=== PATIENT | female | born 1955 | race Caucasian/White ===

== ENCOUNTER 2018-03-11 10:02 | Emergency (ER) | payer OTHER ==
--- NOTE | 2018-03-11 10:25 | RAD ---
Indication: Left hemiparesis CT of the brain was performed without IV contrast. Ventricular structures are midline. No midline shift is noted. There is a large intraparenchymal hemorrhage involving the right parietal lobe extending to the right occipital lobe. There is intraventricular hemorrhage noted with hemorrhage in the left occipital horn.. No midline shift is noted. The bony calvaria is unremarkable. IMPRESSION: Large intraparenchymal hematoma in the right parietal lobe. Findings discussed with Dr. Montague at 10:21 AM
[2018-03-11 10:30] LABS: ABS Basophils 0.1 10^3/ul (0-0.2); ABS Eosinophils 0 10^3/ul (0-0.6); ABS Lymphocytes 0.7 10^3/ul (1.0-4.8); ABS Neutrophils 11.3 10^3/ul (1.5-7.7); ABS Nucleated RBC 0 10^3/ul; Eosinophil % 0.1 % (0-6); Hematocrit 41 % (35-47); Hemoglobin 13.9 g/dl (12.0-16.0); Lymphocyte % 5.2 % (25-47); Mean Corpuscular HGB Conc 34 g/dl (31-36); Mean Corpuscular Hemoglobin 35 pg (27-31); Mean Corpuscular Volume 104 fL (80-97); Mean Platelet Volume 7.2 um3 (7.4-10.4); Nucleated Red Blood Cells % 0; Platelet Count 358 10^3/ul (150-450); Red Blood Count 3.95 10^6/ul (4.00-5.40); Red Cell Distribution Width 14 % (10.5-15); White Blood Count 13.1 10^3/ul (3.5-10.8)
[2018-03-11 10:51] LABS: EGFR Non-African American 92.1 (>60)
[2018-03-11 10:59] LABS: INR 0.92 (0.77-1.02)
[2018-03-11] MEDS ORDERED: Iodixanol* (CONTRAST) 320 MG/ML 100 ML SDV IV ONE (11:01)
[2018-03-11] MEDS ORDERED: Ondansetron INJ* 2 MG/ML VIAL IV ONE (11:10)
[2018-03-11] MEDS ORDERED: NS 0.9% 500 ML* 500 ML IV ONE (11:10)
--- NOTE | 2018-03-11 11:11 | RAD ---
Indication: Neurologic changes. Single frontal view of the chest performed at 1050 hours was reviewed. Comparison is made with previous exam dated August 15, 2013. No mediastinal shift is noted. Heart is of normal size and configuration. Lung schmidt appear clear. IMPRESSION: NO ACTIVE CARDIOPULMONARY DISEASE IS NOTED.
--- NOTE | 2018-03-11 11:46 | RAD ---
CPT II: CPT II Codes: 3100F INDICATION: Left hemiparesis COMPARISON: Same day CT of the brain that shows a large parenchymal bleed in the right parietal lobe TECHNIQUE: A CT angiogram of the head and neck was performed with 80 cc of Visipaque 320. Contiguous axial sections were obtained from the thoracic inlet through the [place]. Images were reconstructed in the sagittal, coronal planes and in a 3-D volume rendered format. The distal cervical internal carotid artery diameter is used as the denominater for stenosis measurement. CTA NECK: The common and internal carotid arteries are patent without hemodynamically significant stenosis. Right: Below the carotid bifurcation the common carotid artery measures 8 mm in diameter. Immediately above the carotid bifurcation the internal carotid artery measures 9 mm in diameter yielding 0% degree stenosis. Left: Below the carotid bifurcation the common carotid artery measures 7 mm in short axis diameter. Medially above the bifurcation the internal carotid artery measures 8 mm in short axis diameter yielding 0% degree stenosis. The vertebral arteries are patent without gross abnormality. The left vertebral artery is dominant. CTA of the brain: The internal carotid, anterior and middle cerebral arteries appear are patent without high grade stenosis or occlusion. The distal branches of the left middle cerebral artery exhibit reduced filling relative to the contralateral side. The vertebral, basilar and posterior cerebral arteries appear patent without high grade stenosis or occlusion. Bilaterally the posterior communicating arteries are absent indicating an incomplete [place]. No focal luminal filling defect, aneurysm or vascular malformation is seen. NON-ARTERIAL FINDINGS: Similar to the previous CT of the brain, there is a large parenchymal bleed involving the right parietal lobe measuring 3.1 x 5.2 cm in the axial plane, not changed significantly from the prior CT of the brain. When compared to the noncontrast CT of the brain the Hounsfield unit measurement measures a relatively stable 69 indicating there is no active arterial extravasation. There are multiple subcentimeter hypoattenuating foci in the thyroid. IMPRESSION: 1. No significant stenosis of the bilateral carotid bulbs according to the NASCET criteria. 2. There is a relative paucity of filling of the distal right MCA arteries compared to the left but the central cerebral vasculature is patent. 3. Stable intraparenchymal hematoma involving the right parietal lobe when compared to the same day noncontrast CT of the brain. 4. Multifocal subcentimeter foci in the thyroid gland. On a nonemergent basis this can be further characterized with ultrasound.
[2018-03-11] MEDS ORDERED: Labetalol IV* 5 MG/ML 20 ML VIAL IV PUSH ONE (11:52)
[2018-03-11] MEDS ORDERED: Labetalol IV* 5 MG/ML 20 ML VIAL ONE (11:55)
[2018-03-11] MEDS ORDERED: Ondansetron SYRINGE* 4 MG/2 ML SYRINGE (from 40mg/20ml vial) IV ONE (12:00)
--- NOTE | 2018-03-11 12:54 | CONSULT ---
Consult Consult: Consult was dictated. Pt with large right IPH that we suspect to be either due to hypertensive intracranial hemorrhage vs cerebral venous thrombosis. The CTA and CTV showed no acute vascular occlusion or thrombosis. Pt is hemodynamically stable. Neurosurgery (Shobha) evaluated the patient and recommended transfer to . I reviewed the images with DR. Shearer and Dr. Moya. Both agree that there seems to be no venous thrombosis and dominant right IJ and transverse sinus. Spoke with Dr. Lopez who accepted the patient. The patient will need an MRI and MRV to help differentiate between a hypertensive hemorrhage or CVT. Please make sure the patient's SBP stays below 140 mmHg. She has been stable the last 2 hours. We decided, with Dr. Montague, to transfer her via EMS.
[2018-03-11] MEDS ORDERED: LORazepam INJ* 2 MG/ML 1 ML VIAL IV PUSH ONE (13:35)
[2018-03-11] MEDS ORDERED: LORazepam INJ* 2 MG/ML 1 ML VIAL ONE (13:36)
--- NOTE | 2018-03-11 13:36 | ED ---
Jesse Ferguson Angela, scribed for Devin Montague MD on 03/11/18 at 1017 . Neurological HPI - HPI Summary HPI Summary: ABDULAZIZ PITT OVERHEAD AT 09:52, ETA 5 minutes. This pt is a 62 y/o female presenting to [facility] via EMS for left sided paralysis today. EMS reports the pt woke up at 05:00 this morning with left leg spasm. Pt noticed she could not move her left side and was unable to locate phone or crawl to her door so she called help out of her window and a neighbor responded. Per EMS, her left leg became stiff and currently pt has no sensation on the left side. EMS states pt has left sided facial droop and a gaze to the right. Pt currently notes she has a slight headache, described on the right side of her head, and nausea. - History of Current Complaint Stated Complaint: POSSIBLE STROKE Time Seen by Provider: 03/11/18 10:05 Hx Obtained From: Patient, EMS Onset/Duration: Sudden Onset, Still Present Timing: Sudden Onset Current Severity: Severe Neurological Deficit Location: Facial - left sided facial droop, LUE, LLE Headache Location: Diffuse (Right) Pain Intensity: 2 Pain Scale Used: 0-10 Numeric Character: Weak - left sided, Paralysis - left side, Visual Changes - gaze to the right, Other: - headache Aggravating: Nothing Alleviating: Nothing Associated Signs and Symptoms: Positive: Visual Changes - right gaze, Headache, Weakness - left sided. Negative: Fever - Allergy/Home Medications Allergies/Adverse Reactions: Allergies Allergy/AdvReac Type Severity Reaction Status Date / Time No Known Allergies Allergy Verified 12/02/15 10:52 PMH/Surg Hx/FS Hx/Imm Hx Endocrine/Hematology History: Denies: Hx Diabetes Cardiovascular History: Reports: Other Cardiovascular Problems/Disorders - pt states that she believes she has a heart rhythmia. Denies: Hx Hypertension - PT WAS TREATED WITH LISINOPRIL BUT NO LONGER NEEDED PER PT DOC.TOOK HEROFF, Hx Pacemaker/ICD Musculoskeletal History: Reports: Other Musculoskeletal History - CURRENT LEFT ELBOW FX Sensory History: Reports: Hx Contacts or Glasses - GLASSES Denies: Hx Hearing Aid Opthamlomology History: Reports: Hx Contacts or Glasses - GLASSES Psychiatric History: Denies: Hx Panic Disorder - Surgical History Surgery Procedure, Year, and Place: [place] [facility] [place] Anesthesia Reactions: No Infectious Disease History: Denies: Hx Shingles, Hx Tuberculosis - Family History Family History: FHx: [place] - Social History Alcohol Use: Weekly Alcohol Amount: 2-3/WEEK Substance Use Type: Reports: Marijuana Substance Use Comment - Amount & Last Used: OCC MARIJUANA USE Smoking Status (MU): Former Smoker Have You Smoked in the Last Year: No Review of Systems Negative: Fever, Chills Negative: Erythema Negative: Sore Throat Negative: Chest Pain Negative: Shortness Of Breath, Cough Positive: Nausea. Negative: Abdominal Pain, Vomiting Negative: dysuria, hematuria Negative: Myalgia, Edema Negative: Rash Neurological: Other - NEG: dizziness. POS: left sided paralysis, left sided facial droop, gaze to the right Positive: Headache, Weakness - left sided All Other Systems Reviewed And Are Negative: Yes Physical Exam - Summary Physical Exam Summary: Constitutional: Well-developed, Well-nourished, Alert. (-) Distressed Skin: Warm, Dry HENT: Normocephalic; Atraumatic Eyes: Conjunctiva normal Neck: Musculoskeletal ROM normal neck. (-) JVD, (-) Stridor, (-) Tracheal deviation Cardio: Rhythm regular, rate normal, Heart sounds normal; Intact distal pulses; The pedal pulses are 2+ and symmetric. Radial pulses are 2+ and symmetric. (-) Murmur Pulmonary/Chest wall: Effort normal. (-) Respiratory distress, (-) Wheezes, (-) Rales Abd: Soft. (-) Tenderness, (-) Distension, (-) Guarding, (-) Rebound Musculoskeletal: (-) Edema Lymph: (-) Cervical adenopathy Neuro: Alert, Oriented x3, Gaze deviation to the right, Left sided hemineglect, Left leg is stiff, Left arm is held in contracture and flexion at the elbow. Psych: Mood and affect Normal Triage Information Reviewed: Yes Vital Signs On Initial Exam: Initial Vitals Pulse Resp BP Pulse Ox 78 18 156/97 100 03/11/18 10:02 03/11/18 10:02 03/11/18 10:02 03/11/18 10:02 Temperature: 98.0 F Vital Signs Reviewed: Yes - Esau Coma Scale Best Eye Response: 4 - Spontaneous Best Motor Response: 6 - Obeys Commands Best Verbal Response: 5 - Oriented Coma Scale Total: 15 Diagnostics - Vital Signs Vital Signs Temp Pulse Resp BP Pulse Ox 03/11/18 11:50 86 17 151/95 99 03/11/18 11:20 88 15 144/107 99 03/11/18 11:00 87 20 100 03/11/18 10:51 88 17 145/99 100 03/11/18 10:46 77 22 99 03/11/18 10:44 36.7 C 79 20 141/95 100 03/11/18 10:08 74 18 141/95 98 03/11/18 10:02 78 18 156/97 100 - Laboratory Lab Results: Lab Results 03/11/18 03/11/18 03/11/18 Range/Units 10:18 10:21 10:21 WBC 13.1 H (3.5-10.8) 10^3/ul RBC 3.95 L (4.00-5.40) 10^6/ul Hgb 13.9 (12.0-16.0) g/dl Hct 41 (35-47) % MCV 104 H (80-97) fL MCH 35 H (27-31) pg MCHC 34 (31-36) g/dl RDW 14 (10.5-15) % Plt Count 358 (150-450) 10^3/ul MPV 7.2 L (7.4-10.4) um3 Neut % (Auto) 86.4 H (38-83) % Lymph % (Auto) 5.2 L (25-47) % Garrard % (Auto) 7.5 H (0-7) % Eos % (Auto) 0.1 (0-6) % Baso % (Auto) 0.8 (0-2) % Absolute Neuts (auto) 11.3 H (1.5-7.7) 10^3/ul Absolute Lymphs (auto) 0.7 L (1.0-4.8) 10^3/ul Absolute Monos (auto) 1.0 H (0-0.8) 10^3/ul Absolute Eos (auto) 0 (0-0.6) 10^3/ul Absolute Basos (auto) 0.1 (0-0.2) 10^3/ul Absolute Nucleated RBC 0 10^3/ul Nucleated RBC % 0 INR (Anticoag Therapy) 0.92 (0.77-1.02) APTT 29.2 (26.0-36.3) seconds D-Dimer, Quantitative 391 H (Less Than 230) ng/mL Sodium (135-145) mmol/L Potassium (3.5-5.0) mmol/L Chloride (101-111) mmol/L Carbon Dioxide (22-32) mmol/L Anion Gap (2-11) mmol/L BUN (6-24) mg/dL Creatinine (0.51-0.95) mg/dL Est GFR ( Amer) (>60) Est GFR (Non-Af Amer) (>60) BUN/Creatinine Ratio (8-20) Glucose (70-100) mg/dL POC Glucose (mg/dL) 72 (70-100) mg/dL Lactic Acid (0.5-2.0) mmol/L Calcium (8.6-10.3) mg/dL Total Bilirubin (0.2-1.0) mg/dL AST (13-39) U/L ALT (7-52) U/L Alkaline Phosphatase (34-104) U/L Troponin I (<0.04) ng/mL Total Protein (6.4-8.9) g/dL Albumin (3.2-5.2) g/dL Globulin (2-4) g/dL Albumin/Globulin Ratio (1-3) Triglycerides mg/dL Cholesterol mg/dL LDL Cholesterol mg/dL HDL Cholesterol mg/dL Blood Type Antibody Screen 03/11/18 03/11/18 03/11/18 Range/Units 10:21 10:21 10:22 WBC (3.5-10.8) 10^3/ul RBC (4.00-5.40) 10^6/ul Hgb (12.0-16.0) g/dl Hct (35-47) % MCV (80-97) fL MCH (27-31) pg MCHC (31-36) g/dl RDW (10.5-15) % Plt Count (150-450) 10^3/ul MPV (7.4-10.4) um3 Neut % (Auto) (38-83) % Lymph % (Auto) (25-47) % Garrard % (Auto) (0-7) % Eos % (Auto) (0-6) % Baso % (Auto) (0-2) % Absolute Neuts (auto) (1.5-7.7) 10^3/ul Absolute Lymphs (auto) (1.0-4.8) 10^3/ul Absolute Monos (auto) (0-0.8) 10^3/ul Absolute Eos (auto) (0-0.6) 10^3/ul Absolute Basos (auto) (0-0.2) 10^3/ul Absolute Nucleated RBC 10^3/ul Nucleated RBC % INR (Anticoag Therapy) (0.77-1.02) APTT (26.0-36.3) seconds D-Dimer, Quantitative (Less Than 230) ng/mL Sodium 142 (135-145) mmol/L Potassium 3.4 L (3.5-5.0) mmol/L Chloride 102 (101-111) mmol/L Carbon Dioxide 27 (22-32) mmol/L Anion Gap 13 H (2-11) mmol/L BUN 5 L (6-24) mg/dL Creatinine 0.65 (0.51-0.95) mg/dL Est GFR ( Amer) 111.4 (>60) Est GFR (Non-Af Amer) 92.1 (>60) BUN/Creatinine Ratio 7.7 L (8-20) Glucose 89 (70-100) mg/dL POC Glucose (mg/dL) (70-100) mg/dL Lactic Acid 2.0 (0.5-2.0) mmol/L Calcium 9.6 (8.6-10.3) mg/dL Total Bilirubin 0.70 (0.2-1.0) mg/dL AST 72 H (13-39) U/L ALT 31 (7-52) U/L Alkaline Phosphatase 68 (34-104) U/L Troponin I 0.04 H* (<0.04) ng/mL Total Protein 7.6 (6.4-8.9) g/dL Albumin 4.3 (3.2-5.2) g/dL Globulin 3.3 (2-4) g/dL Albumin/Globulin Ratio 1.3 (1-3) Triglycerides 61 mg/dL Cholesterol 222 mg/dL LDL Cholesterol 112 mg/dL HDL Cholesterol 97.9 mg/dL Blood Type B Positive Antibody Screen Negative Result Diagrams: 03/11/18 10:03/11/18 10:21 Lab Statement: Any lab studies that have been ordered have been reviewed, and results considered in the medical decision making process. - Radiology Chest XR Xray Interpretation: No Acute Changes - IMPRESSION: No active cardiopulmonary disease is noted. Dr. Montague has reviewed this report. Radiology Interpretation Completed By: Radiologist - CT Brain CT CT Interpretation: Positive (See Comments) - IMPRESSION: Large intraparenchymal hematoma in the right parietal lobe. Dr. Montague has reviewed this report. CT Interpretation Completed By: Radiologist - EKG 10:14 Cardiac Rate: NL - at 72 bpm EKG Rhythm: Sinus Rhythm EKG Interpretation: No STEMI. - Additional Comments Diagnostic Additional Comments: CTA Head, as read by radiologist IMPRESSION: 1. No significant stenosis of the bilateral carotid bulbs according to the NASCET criteria. 2. There is a relative paucity of filling of the distal right MCA arteries compared to the left but the central cerebral vasculature is patent. 3. Stable intraparenchymal hematoma involving the right parietal lobe when compared to the same day noncontrast CT of the brain. 4. Multifocal subcentimeter foci in the thyroid gland. On a nonemergent basis this can be further characterized with ultrasound. Dr. Montague has reviewed this radiology report. NIH Scale - NIH Scale Level of Consciousness: Alert/Keenly Responsive Ask Patient the Month and His/Her Age: Both Correct Ask Pt to Open/Close Eyes and Curriculum Counselor/Release Non-Paretic Hand: Both Correctly Best Gaze (Only Horizontal Eye Movement): Forced Deviation Visual Field Testing: No Visual Loss Facial Paresis-Pt to Smile & Close Eyes or Grimace Symmetry: Partial Paralysis Motor Function - Right Arm: No Drift-Holds 10 Seconds Motor Function - Left Arm: No Movement Motor Function - Right Leg: No Drift-Holds 10 Seconds Motor Function - Left Leg: No Movement Limb Ataxia-Must be out of Proportion to Weakness Present: Absent Sensory (Use Pinprick to Test Arms/Legs/Trunk/Face): Pinprick Less on Affected Best Language (Describe Picture, Name Items): No Aphasia Dysarthria (Read Several Words): Normal Extinction and Inattention: Profound Manoj-Inattention Total Score: 15 Re-Evaluation - Re-Evaluation First Eval Re-Evaluation Time: 10:05 Comment: Dr. Vines, neurologist, in to evaluate the pt. Third Eval Re-Evaluation Time: 13:35 Comment: Pt developed strange feeling in her chest. Currently getting an EKG. I discussed with the family, they believe she is gettting anxiety. Course/Dx - Course Assessment/Plan: Pt is a 62 y/o female who presetns with left sided paralysis today. EMS reports the pt woke up at 05:00 this morning with left leg spasm. Pt noticed she could not move her left side and was unable to locate phone or crawl to her door so she called help out of her window and a neighbor responded. Per EMS, her left leg became stiff and currently pt has no sensation on the left side. EMS states pt has left sided facial droop and a gaze to the right. Pt currently notes she has a slight headache, described on the right side of her head, and nausea. Abdulaziz Alonzo was called overhead at 09:52, ETA [address] Vines, neurologist, evaluated pt in the ED. Brain CT shows large intraparenchymal hematoma in the right parietal lobe. CTA Head was ordered by Dr. Vines. CTA shows 1. No significant stenosis of the bilateral carotid bulbs according to the NASCET criteria. 2. There is a relative paucity of filling of the distal right MCA arteries compared to the left but the central cerebral vasculature is patent. 3. Stable intraparenchymal hematoma involving the right parietal lobe when compared to the same day noncontrast CT of the brain. 4. Multifocal subcentimeter foci in the thyroid gland. On a nonemergent basis this can be further characterized with ultrasound. Dr. Vines spoke with Dr. Lopez , from [facility], who accepted the patient for transfer. Pt will be transferred to [facility] in stable condition. - Diagnoses Provider Diagnoses: Intraparenchymal hemorrhage of brain During the Visit The Following Alert/Code Occurred: Abdulaziz Pitt - at 09:52, ETA 5 minutes - Critical Care Time Critical Care Time: 30-74 min - 45 minutes Discharge - Sign-Out/Discharge Documenting (check all that apply): Discharge/Admit/Transfer - Transfer - Discharge Plan Condition: Stable Disposition: TRANS HIGHER LVL OF CARE FAC Discharge Disposition Comment: [facility] Referrals: Fozia Silva MD [Primary Care Provider] - - Billing Disposition and Condition Condition: STABLE Disposition: Trans Higher Lvl of Care Fac The documentation as recorded by the Jesse morales Angela accurately reflects the service I personally performed and the decisions made by , Devin Montague MD.
[2018-03-11 13:46] VITALS: BP 137/87
[2018-03-11 14:10] LABS: Urine Appearance Clear; Urine Blood Negative (Negative); Urine Color Yellow; Urine Ketones 1+ (Negative); Urine Protein Negative (Negative); Urine Specific Gravity 1.048 (1.010-1.030); Urine Urobilinogen Negative (Negative)
--- NOTE | 2018-03-11 16:11 | CONS ---
NEUROLOGY CONSULTATION REPORT: DATE OF CONSULT: 03/11/18 CONSULTING PHYSICIAN: Devin Montague MD Marifer Kat was called at 9:52 for ETA of 5 minutes. The patient arrived at approximately 10:05 a.m. CHIEF COMPLAINT: Left-sided weakness. Neurology is following for the evaluation and management and recommendation for the Darrius Kat and to evaluate for tPA. HISTORY OF PRESENT ILLNESS: Lara Nicole is a 62-year-old right-handed female , who has history of chronic tobacco use, 2 miscarriages in the past, and history of marijuana use who presented to [facility] via EMS for a left-sided paralysis. The patient stated that she went to sleep approximately at 10 p.m. last night with no neurological deficits. She woke up at 5 a.m. with spasms in the left leg. She was moving the left leg and massaging the left calf using the right arm. She was unable to lift her left arm. She also had a very mild 2 /10 headache in the right cerebral hemisphere. The patient does not have a history of headaches in the past. She is also feeling ill and was dry heaving this morning. She contacted EMS who came and found the patient in bed with significant left hemiparesis and contraction of the left upper and lower extremities. NIH stroke scale is 19. Important time frames. The CT head was obtained without contrast which showed a large right intraparenchymal hemorrhage involving the right parietal lobe with possible mild intraventricular hemorrhage without any midline shift. The CTA was also obtained of the head and neck as well as CTV of the head and neck. Pending the report for these images. However, I discussed these images with Dr. Wilson from Radiology at 10: 45 who reported that there is expansion of the right internal jugular vein as well as right transverse sinus with possible occlusion vs hypoplastic left transverse sinus, left sigmoid sinus, and left internal jugular vein. There appears to be no intercerebral aneurysm, subarachnoid hemorrhage, or midline shift/herniation. The patient's blood pressure has been within a range of systolic blood pressure of 140-150 mmHg. The patient is not intubated. The patient is resting in bed comfortably and she provided most of the history. The patient has history of miscarriage x2 when she was 29 years of age. She denies any DVTs or PEs. She denied any anticoagulation or antiplatelet therapy. PAST MEDICAL HISTORY: Tobacco abuse. The patient is otherwise healthy. PAST SURGICAL HISTORY: Elbow surgery in the past. MEDICATIONS: Not on any medications. She used to take lisinopril for hypertension but was stopped due to episodes of hypotensive. FAMILY HISTORY: The patient denied any family history of stroke, seizure, or clotting disorders. SOCIAL HISTORY: The patient is on disability after she fractured her elbow. She used to work for the [employer]. She smokes about half a pack a day for more than 30 years. She smokes marijuana occasionally. She denied any alcohol use. REVIEW OF SYSTEMS: A 14-point review of systems was obtained and is negative except for what was reported in the HPI. PHYSICAL EXAMINATION: Vital Signs: Heart rate of 86, respiratory rate of 20, oxygen saturation of 100%, blood pressure of 145/99. General: Ill appearing thin female, in no acute distress except that she has dry heaves. Head: Normocephalic without any obvious abnormalities. She reports no falls or any head trauma. Eyes: Conjunctivae/corneas are clear. She has forced eye deviation towards the right. Neck is supple and symmetrical with no carotid bruits. Lungs are clear to auscultation bilaterally. Nonlabored breathing. Cardiovascular: Regular rhythm with normal S1, S2 and normal radial pulses. Extremities: Normal range of motion with no cyanosis. Skin: No skin lesions or lacerations. Psych: Affect is broad and normal mood. The patient became slightly emotional and started crying after I reported to her that she has an intraparenchymal hemorrhage. Neurological Examination: Mental Status: Awake, alert, and oriented to person, place, time, and general circumstances. She has mild dysarthria but no aphasia. Assessment for expression, naming, repetition, and comprehensions were assessed and found to be normal. Cranial Nerves: Normal confrontation testing. There is forced deviation towards the right. There is left homonymous hemianopia. She has a left facial droop. Sensation on the forehead, cheeks, and jaw are absent on the left. Able to hear throughout the history process. She has tongue that is symmetric and midline with no atrophy or fasciculation. On motor, the patient has dense hemiparesis on the left upper and lower extremities with contraction of the elbows and contractions of the knees and ankles on the left. She has complete hemineglect towards the left side. She is able to move the right upper and right lower extremities with full motor strength. Hypertonicity of the left upper and lower extremities. Reflexes right/left brachioradialis 2/1, biceps 2/1, triceps 2/2, patella 2/0, ankle 2/0, plantar flexor/extensor with triple reflex response. Sensation to light touch and pinprick is absent on the left arm and left leg. Coordination: Normal [id number] on the right but unimpaired on the left. Unable to assess gait, because the patient is immobile and has dense left hemiplegia. DIAGNOSTIC STUDIES/LAB DATA: WBC of 13.1, hemoglobin of 13.9, hematocrit 41, platelet count of 358,000. INR is 0.92. APTT 29.2. Sodium 142, potassium is 3.4, chloride 102, creatinine of 0.65, troponin of 0.04. HDL 97, LDL is 112, cholesterol is 222. Imaging studies as discussed in the HPI. ASSESSMENT AND PLAN: Mrs. Lara Nicole is a 62-year-old female with history of tobacco use, marijuana consumption, and history of miscarriages x2 in the past who presented with acute onset left hemiplegia and left hemineglect. The patient was last known well at 10 p.m. last night. NIH stroke scale is 19. Unfortunately, the patient was found to have a large right intraparenchymal hematoma. CTA/CTV revealed no evidence of any intracerebral aneurysms and questionable occlusion or hypoplastic left transverse sinus, sigmoid sinus and of the internal jugular vein on the left with engorgement of the internal jugular and transverse sinus on the right. I am concerned here that the patient has a cerebral sinus venous thrombosis with a possible thrombosis on the contralateral side from increased collateral flow and pressure towards the right side. However we cannot entirely exclude hypertensive lobar hemorrhage. She is not within the common age group for cerebral amyloid angiopathy but that is still in the differential. Other differential diagnoses which are less likely would include hemorrhagic malignancy. I do not suspect intracranial hemorrhage related to aneurysms given that the patient does not have any subarachnoid hemorrhage. The patient is not a candidate for IV tPA due to the intracranial hemorrhage. I contacted Neurosurgery and discussed the case with ALONZO Yeager, at 11 a.m. According to the neurosurgery team, the patient should be treated at a tertiary center and a transfer to the [facility] was recommended. We contacted the [facility] and we are in the process of discussing the case with Dr. Jones once he receives the images from PACS. In the meantime, I have started the patient on IV fluids, elevated the bed to 40 degrees, placed the patient on seizure precautions, as if we suspect cerebral venous thrombosis, seizures are common in this case. In addition, I asked the ER physician to start the patient on Zofran for the dry heaves. We need to maintain a systolic blood pressure below 140. The patient was not on any antithrombotic therapy, hence reversal agents are not indicated at this time. Her PTT and INR as well as the platelet functions are normal. Prognosis is guarded at this point. Continue neuro check every hour until we obtain the final decision in transferring the patient either via air or ambulance. TIME SPENT: I spent a total of 90 minutes of critical care time and greater than 50% was spent directly reviewing the medical chart, obtaining history, examining the patient, interpreting radiological images, making decisions regarding communicating with Neurosurgery and transfer to a tertiary center such as the [facility], and discussing the guarded prognosis with the patient and family. [id number]/[facility] #: [id number] ADDENDUM: Spoke to Dr. Jones and hypertensive hemorrhage is high on the differential. Therefore, we agreed not to start any anticoagulation therapy for suspected CVT. She will obtain an MRI and MRV of the head at . She was deemed safe to transport via ground transportation via EMS. Family (sister and mother) updated at bedside and agreed with the recommendations. The patient was hemodynamically stable for transfer via ground. I recommend close BP monitoring keeping her SBP <140 mmHg and head elevated at 30 degrees. Phoebe PEREZ
--- NOTE | 2018-03-12 12:05 | ED ---
IJesse Angela, scribed for Devin Montague MD on 03/11/18 at 1349 . Progress - Progress Note Progress Note: EKG at 13:29 Rate: normal at 61 bpm Rhythm: sinus rhythm No STEMI. Re-Evaluation - Re-Evaluation First Eval Re-Evaluation Time: 10:05 Comment: Dr. Vines, neurologist, in to evaluate the pt. Third Eval Re-Evaluation Time: 13:35 Change: Worse Comment: Pt developed strange feeling in her chest. Currently getting an EKG. I discussed with the family, they believe she is gettting anxiety. Fourth Eval Re-Evaluation Time: 13:48 Change: Improved Comment: Chest discomfort and panic resolved after 0.5 mg of Ativan. Course/Dx - Diagnoses Provider Diagnoses: Intraparenchymal hemorrhage of brain During the Visit The Following Alert/Code Occurred: Code Rosado - at 09:52, ETA 5 minutes - Critical Care Time Critical Care Time: 30-74 min - 45 minutes Discharge - Sign-Out/Discharge Documenting (check all that apply): Discharge/Admit/Transfer - Transfer - Discharge Plan Condition: Stable Disposition: TRANS HIGHER LVL OF CARE FAC Discharge Disposition Comment: [facility] Referrals: Fozia Silva MD [Primary Care Provider] - - Billing Disposition and Condition Condition: STABLE Disposition: Trans Higher Lvl of Care Fac The documentation as recorded by the Jesse morales Angela accurately reflects the service I personally performed and the decisions made by me, Devin Montague MD.
== END 2018-03-11 13:51 | disposition short-term general hospital (02) ==
LOC: ED 10:02
DX: I61.8 Other nontraumatic intracerebral hemorrhage (principal); G81.94 Hemiplegia, unspecified affecting left nondominant side; Z87.891 Personal history of nicotine dependence; R07.9 Chest pain, unspecified
CPT/HCPCS: 36415; 70450; 70496; 70498; 71045; 80053; 80061; 81003; 81015; 83605; 84484; 85025; 85379; 85610; 85730; 86850; 86900; 86901; 87086; 93005; 96360; 96374; 96375; 96376; 99285; J2060; J2405; Q9967

== ENCOUNTER 2018-03-21 08:33 | Inpatient (IN) | payer OTHER ==
[2018-03-21] MEDS ORDERED: Al Hydrox/Mg Hydrox/Simet LIQ* 30 ML UDC PO PRN (11:15)
[2018-03-21] MEDS ORDERED: Bisacodyl SUPP* 10 MG SUPP PR PRN (11:49)
--- NOTE | 2018-03-21 14:19 | HP ---
CC: Dr. Silva REHABILITATION ADMISSION: DATE OF ADMISSION: PRIMARY CARE PROVIDER: Dr. Silva. REASON FOR ADMISSION: Intracranial hemorrhage. HISTORY OF PRESENT ILLNESS: This is a 62-year-old woman, who woke up on with some spasm in her left leg and was having difficulty using her left arm. She was brought to the hospital and noted to have left hemiplegia and CT of the head showed a right intraparenchymal hemorrhage. She had a right gaze preference and some left neglect. There was a concern on CTA of a questionable left transverse sinus occlusion and decision was made for her to be transferred to [facility] for further evaluation. While there, a repeat CT of the head showed similar right intraparenchymal hemorrhage in the frontoparietal area, but also left parietal subarachnoid hemorrhage that was small and some small volume blood in the intraventricular system. CT of the chest, abdomen, and pelvis showed no malignancy. There was a L2 compression fracture of indeterminate age. On 03/12/18, she underwent MRI with MRV. Noted was a large right frontoparietal hematoma with small intraventricular hemorrhage. There was scattered subarachnoid hemorrhage on bilateral cerebellar and posterior hemispheres. She had a DSA, which showed no evidence of vascular malformation. She has a dominant right transverse sinus and type 3 arch with tortuous vessels. Echo on 03/18/18 was unremarkable. She had an ejection fraction of 71%. On telemetry, she was in normal sinus rhythm without any atrial fibrillation. She did have hypertension, which was treated with amlodipine. Initially, she required some intravenous hydralazine, but not in several days. She also received Zofran early on for nausea, but has not been nauseous in days. She has received some IV fluids for hyponatremia as well as replacement of potassium and magnesium, last on 03/19/18 from the records reviewed that I have available. Prior to admission, she was independent with all mobility and activities of daily living. With physical therapy, she required minimum amount of assistance for bed mobility, moderate amount of assistance for transferring. With occupational therapy, she required a minimum amount of assistance for eating and maximum amount of assistance for dressing. With speech therapy, she was noted to have mild-to- moderate dysphagia. She was, however, allowed to eat regular consistencies, but not use straws. She should be bolt upright for p.o. intake and alternating liquids and solids with checking for pocketing. She is on the nectar thick liquid restriction from the last speech note that we have available, was unclear if this was upgraded. PAST MEDICAL HISTORY: 1. Hypertension. 2. History of left elbow fracture, requiring surgery by Dr. Tee a few years ago. 3. Stroke with intracranial hemorrhage, see history of present illness. MEDICATIONS: 1. Senna 2 tablets q.h.s. 2. Colace 200 mg b.i.d. 3. Dulcolax 10 mg q. day p.r.n. 4. MiraLAX 17 g q. day. 5. Purmela-3 supplement 1 packet q. day. 6. Amlodipine 5 mg q. day. 7. Heparin 5000 units q.8 hours for DVT prophylaxis. 8. Calcium carbonate 1000 mg b.i.d. p.r.n. indigestion. 9. Tylenol 650 mg q.4 hours p.r.n. pain. ALLERGIES: No known drug allergies. FAMILY HISTORY: Noncontributory. SOCIAL HISTORY: She lives with her son, Jt, who is her healthcare proxy in case she could not make decisions for herself. They both live in upper level apartment, but the lower level is available for her at discharge. There are 4 to 5 steps to enter and she can stay on that floor. She has smoked for at least 10 years, but says she was only smoking 2 cigarettes per day. She has quit as of the stroke. She has occasional marijuana use. She would generally drink 3 glasses of wine per day. She enjoys gardening and art and craft activities. She went on disability when she fractured her elbow. 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 REVIEW OF SYSTEMS: See history of present illness and past medical history. She has been using a Depend at night since the stroke. Her bowel movements have been regular. Remainder of 13-system review was completed. She has acknowledged some left shoulder and elbow pain. Elbow pain was prior to stroke but the left shoulder pain is new. No other significant findings. PHYSICAL EXAMINATION GENERAL: Well-developed, well-nourished, appearing stated age. Mental Status: In no acute distress. Alert and oriented x3. VITAL SIGNS: Temperature 98.6, heart rate 68, blood pressure 119/87, oxygen saturation 97% on room air. HEENT: Normocephalic, atraumatic. Oropharynx clear. Moist mucous membranes. LUNGS: Clear to auscultation bilaterally. HEART: Regular rate and rhythm. ABDOMEN: Active bowel sounds. Soft, nontender, nondistended. EXTREMITIES: No clubbing, cyanosis, or edema. 2+ pedal pulses. MUSCULOSKELETAL: She does seem to lack full extension in the left elbow and does have Cassius grade 2 tone in the biceps as well. She, otherwise, has functional range of motion of all her major joints without any evidence of pain. No tenderness to palpation. No shoulder subluxation, but she is supine. NEUROLOGICAL: She has a left cranial nerve VII palsy. EOMI. Her visual schmidt appeared to be intact and I am not noticing as much neglect as was reported. She has 5/5 strength in her right upper and lower extremity with normal sensation. On the left side, she is flaccid with no movement and impaired sensation. IMPRESSION: A 62-year-old woman status post intracranial hemorrhage. She will be admitted to [facility], so she can hopefully return to independent living. PLAN: 1. Intracranial hemorrhage. She is supposed to have a repeat MRI of her brain in 1 to 2 months and will need followup with Neurology. 2. Fluids, electrolytes, and nutrition. Continue her on a regular solid diet and nectar thick liquid until she has been seen by Speech Therapy. We will check labs tomorrow morning. 3. Hypertension. Continue with Norvasc. 4. Dysphagia. She will be seen by Speech Therapy today to evaluate her swallowing. 5. Dysarthria. She will be seen by Speech Therapy for cognitive screen and additional communication strategies. 6. Impaired mobility. She will be seen by Physical Therapy for bed mobility transfers, wheelchair mobility, and ambulation if she is able. She will also need to do stairs or ramp prior to discharge to home. 7. Impaired self-care. She will be seen by Occupational Therapy for ADL training and equipment evaluation. ADVANCE DIRECTIVES: She is a full code. She cannot make decisions for herself ; her son, Jt, will make decisions for her. She has a total of 6 children, but he is the only that is local and that is the one that she lives with. ESTIMATED LENGTH OF STAY: Four to six weeks. [id number]/[facility] #: [id number] [facility] [place]
[2018-03-21] MEDS: Heparin VIAL(*) 5000 UNITS/ML VIAL (FIVE THOUSAND) SUBCUT SCH ×2 (14:37→22:07)
[2018-03-21] MEDS: Docusate CAP* 100 MG PO SCH (22:07)
[2018-03-22] MEDS: Heparin VIAL(*) 5000 UNITS/ML VIAL (FIVE THOUSAND) SUBCUT SCH ×3 (05:57→23:08)
[2018-03-22 06:49] LABS: ABS Basophils 0.1 10^3/ul (0-0.2); ABS Eosinophils 0.1 10^3/ul (0-0.6); ABS Lymphocytes 1.7 10^3/ul (1.0-4.8); ABS Monocytes 1.4 10^3/ul (0-0.8); ABS Neutrophils 6.4 10^3/ul (1.5-7.7); ABS Nucleated RBC 0 10^3/ul; Hematocrit 36 % (35-47); Hemoglobin 12.8 g/dl (12.0-16.0); Lymphocyte % 17.1 % (25-47); Mean Corpuscular HGB Conc 35 g/dl (31-36); Mean Corpuscular Hemoglobin 35 pg (27-31); Mean Corpuscular Volume 100 fL (80-97); Nucleated Red Blood Cells % 0.1; Platelet Count 531 10^3/ul (150-450); Red Blood Count 3.63 10^6/ul (4.00-5.40); Red Cell Distribution Width 13 % (10.5-15); White Blood Count 9.7 10^3/ul (3.5-10.8)
[2018-03-22 07:05] LABS: EGFR Non-African American 140.7 (>60)
[2018-03-22] MEDS ORDERED: Magnesium Sulfate IV* 3 GM in NS 0.9% 100 ML* 100 ML IVPB ONE (07:45)
[2018-03-22] MEDS ORDERED: Potassium Chlor TAB* 10 MEQ TAB.ER PO ONE (07:46)
--- NOTE | 2018-03-22 08:05 | PN ---
Progress Note Date of Service: 03/22/18 Note: VERÓNICA DEGROOT was visited. Nursing and therapy notes read and reviewed. Denies any chest pain, shortness of breath or abdominal pain. She slept well last night. Her left shoulder pain is better when supported and more prominent when it is not. Current Medications: Active Medications Generic Name Dose Route Start Last Admin Trade Name Freq PRN Reason Stop Dose Admin Acetaminophen 650 mg 03/21/18 11:15 Tylenol Tab* PO Q4H PRN FEVER > 101 Al Hydrox/Mg Hydrox/Simethicone 30 ml 03/21/18 11:15 Maalox Plus* PO Q6H PRN INDIGESTION Amlodipine Besylate 5 mg 03/22/18 09:00 Norvasc Tab* PO DAILY TIMA Bisacodyl 10 mg 03/21/18 11:49 Dulcolax Supp* SC DAILY PRN CONSTIPATION Calcium Carbonate 1,250 mg 03/21/18 11:52 Calcium Carbonate Tab* PO BID PRN indigestion Docusate Sodium 200 mg 03/21/18 21:00 03/21/18 22:07 Colace Cap* PO 200 mg BID TIMA Administration Heparin Sodium (Porcine) 5,000 units 03/21/18 14:00 03/22/18 05:57 Heparin Vial(*) SUBCUT 5,000 units Q8HR TIMA Administration Magnesium Sulfate 3 gm/ Sodium 106 mls @ 53 mls/hr 03/22/18 07:45 Chloride IVPB 03/22/18 09:44 ONCE ONE Magnesium Oxide 400 mg 03/22/18 21:00 Magox 400 Tab* PO BID TIMA Pto:(Coromega [place]- 1 packet 03/22/18 09:00 3 1 Packet) PO QAM TIMA Pto:Echinacea 2 cap 03/22/18 09:00 Goldseal 2 Cap PO DAILY TIMA Polyethylene Glycol/Electrolytes 17 gm 03/22/18 09:00 Miralax* PO DAILY TIMA Potassium Chloride 20 meq 03/22/18 14:00 Klor Con Er Tab* PO TID TIMA Senna 2 tab 03/21/18 11:15 Senokot Tab* PO BEDTIME PRN CONSTIPATION Vital Signs: Vital Signs Temp Pulse Resp BP Pulse Ox 98.7 F 68 16 118/78 97 03/22/18 06:11 03/22/18 06:11 03/22/18 06:11 07/07/18 06:11 03/22/18 06:11 Lab Results: Laboratory Results - last 24 hr 03/22/18 03/22/18 06:23 06:23 WBC 9.7 RBC 3.63 L Hgb 12.8 Hct 36 MCV 100 H MCH 35 H MCHC 35 RDW 13 Plt Count 531 H D MPV 8.0 Neut % (Auto) 66.2 Lymph % (Auto) 17.1 L Evangeline % (Auto) 14.6 H Eos % (Auto) 1.0 Baso % (Auto) 1.1 Absolute Neuts (auto) 6.4 Absolute Lymphs (auto) 1.7 Absolute Monos (auto) 1.4 H Absolute Eos (auto) 0.1 Absolute Basos (auto) 0.1 Absolute Nucleated RBC 0 Nucleated RBC % 0.1 Sodium 136 Potassium 3.2 L Chloride 99 L Carbon Dioxide 28 Anion Gap 9 BUN 7 Creatinine 0.45 L Est GFR ( Amer) 170.3 Est GFR (Non-Af Amer) 140.7 BUN/Creatinine Ratio 15.6 Glucose 103 H Calcium 9.3 Magnesium 1.3 L Total Bilirubin 0.40 AST 51 H ALT 48 Alkaline Phosphatase 39 Total Protein 6.0 L Albumin 3.3 Globulin 2.7 Albumin/Globulin Ratio 1.2 Exam: GENERAL: no acute distress. alert and appropriate. LUNGS: clear to auscultation bilaterally. CV: regular rate and rhythm ABD: + bowel sounds, soft, non-tender, non-distended EXT: no edema. lacks full extension in the left elbow and has Cassius grade 2 tone in the biceps. Her elbow pain is towards end range of flexion. No tenderness to palpation. No shoulder subluxation, but her shoulder is supported in the chair. NEURO: She has a left cranial nerve VII palsy. 5/5 motor in her right upper and lower extremity with normal sensation. On the left side, she is flaccid with no movement and impaired sensation. Assessment/Plan: IMPRESSION: 62-year-old woman status post right frontoparietal intracranial hemorrhage with some mild intraventricular blood and scattered bilateral mostly posterior subarachnoid arachnoid hemorrhages. PLAN: # Intracranial hemorrhage. She is supposed to have a repeat MRI of her brain in 1 to 2 months and will need follow up with Neurology. Neurology recommended against use of SSRI or SNRIs. PT/OT/speech. # Fluids, electrolytes, and nutrition. Mechanical soft diet and thin liquids per speech. Hypomagnesemia and hypokalemia. She would like to meet with crusher and blender operator to discuss which foods are best for her. Replace Mg IV today and KCL po with ongoing supplements ordered. Recheck levels in AM. # Hypertension. Continue with Norvasc. # Advanced Directives: She is a full code. Her son, Jt, is her surrogate decision maker. She has a total of 6 children, but he is the only that is local and that is the one that she lives with. # Estimated LOS: IPOC today. 03/22/18 09:06
[2018-03-22] MEDS: amLODIPine TAB* 5 MG PO SCH (08:35)
[2018-03-22] MEDS: [UNRECOGNIZED DRUG - OTHER] PO SCH (08:36)
[2018-03-22] MEDS: Polyethylene Glycol 3350* 17 GM PACKET PO SCH (08:36)
[2018-03-22] MEDS: [UNRECOGNIZED DRUG - OTHER] PO SCH (08:36)
[2018-03-22] MEDS: Docusate CAP* 100 MG PO SCH ×2 (08:36→23:06)
[2018-03-22] MEDS ORDERED: Bisacodyl SUPP* 10 MG SUPP PR SCH (09:00)
--- NOTE | 2018-03-22 09:16 | PMRUTEAM ---
PMRU: Team Meeting Current Status: Nursing: Current Status Skin Deviations [Right Groin] Previous Access Point Skin Deviation Description [ dressing CDI Right Groin] Physical Therapy: Current Status Bed Mobility Assistance max A x2 Transfer Moblility Assistance mod A x2, walter with nursing Transfer/Bed Mobility walter Recommended Devices Ambulation Assistance not tested Occupational Therapy: Current Status Upper Body Dressing Max Asst Lower Body Dressing Total Assist,3+ Person Assist Bathing Max Asst,Total Assist,2 Person Assist Toileting Total Assist,2 Person Assist Toilet Transfer Total Assist,2 Person Assist Eating Supervision Rec Therapy: Current Status Summary of Assessment and Patient was open to meeting with news writer to discuss Clinical Impression leisure interests and involvement. Patient was dysphoric, cooperative throughout. Patient is very creative and enjoys arts/crafts. Sales And Business Development Manager provided a list of recreational activities for the patient to choose from but she declined stating her son brought her in some items. Treatment Goals Patient will engage in recreation and leisure activities while on the unit. Treatment Plan Provide and encourage involvement in RT services. Social Work: Current Status Discharge Plan return home with home care svs and family support Potential for Family Training pt's children are involved and supportive Anticipated Discharge Home Destination Discharge With home care svs and family support Speech: Current Status Speech Current Status Goal 1 Mild-moderate impairment comprehension Speech Goal 2 Current Status Moderate impairment problem solving Speech Goal 3 Current Status Moderate impairment motor speech Goals: Physical Therapy: Initial Goals Bed Mobility Assistance Independent Transfer Mobility Assistance Independent Transfer/Bed Mobility Manoj Walker Recommended Devices Ambulation Independent Ambulation Recommended Devices Manoj Walker Ambulation Distance 50 Wheelchair Propulsion Ability Independent Stairs Assistance Independent Stair Recommended Devices One Rail Number of Stairs 5 Occupational Therapy: Initial Goals Goals to be Completed in (Days 4-6 weeks ) Upper Body Bathing Routine Modified Independent with Lower Body Bathing Routine Modified Independent with Upper Body Dressing Routine Modified Independent with Lower Body Dressing Routine Modified Independent with Toilet Hygeine and Clothing Modified Independent with Management Routine Toilet Transfer Routine Modified Independent with Tub Transfer Routine Supervision/Set Up Functional Transfers for ADL Modified Independent with Grooming Routine Modified Independent with Feeding Routine Modified Independent with Speech: Goals Speech Goal 1 Comprehension Speech Evaluation Status Goal Mild-moderate impairment 1 Speech Current Status Goal 1 Mild-moderate impairment Goal 1 Comments Long-Term Goal: Pt will use compensatory strategies to demonstrate comprehension of paragraph length verbal and written information of moderate complexity, 100% accuracy, given minimal extra time, Independently. Short-Term Goal : Pt will use compensatory strategies to demonstrate comprehension of paragraph length verbal and written information of moderate complexity, 90% accuracy, given moderate extra time, and Moderate skilled instruction and cueing. Short-Term Goal 2: Pt will use compensatory strategies to attend to information in the Left visual field to to demonstrate comprehension of paragraph length written information of moderate complexity, 90% accuracy, given moderate extra time, and Moderate skilled instruction and cueing. Speech Goal 2 Problem Solving Speech Goal 2 Evaluation Moderate impairment Status Speech Goal 2 Current Status Moderate impairment Speech Goal 2 Comments Long-Term Goal: Pt will use compensatory strategies to solve moderately complex routine problems, with 100% accuracy, Independently, for ADLs such as shopping, time and money management. Short-Term Goal 1: Pt will use compensatory strategies to solve moderately complex routine problems, with 80% accuracy, given Moderate skilled instruction and cueing. Short-Term Goal 2: Pt will use compensatory strategies to attend to information in the Left visual field to solve moderately complex problems, with 80% accuracy, given Moderate skilled instruction and cueing. Speech Goal 3 Motor speech Speech Goal 3 Evaluation Moderate impairment Status Speech Goal 3 Current Status Moderate impairment Speech Goal 3 Comments Direct Customer Service Representative Goal: Patient will demonstrate 50% improvement in range and rate of motion of her Left side labial retractors, elevators and depressors, to achieve functional ability to eat and drink without spillage, speak with minimal distortion, and make appropriate facial expressions. Short Term Goal: Patient will demonstrate 20% improvement in range and rate of motion of her Left side labial retractors, elevators and depressors, to achieve functional ability to eat and drink without spillage, speak with minimal distortion, and make appropriate facial expressions, given Maximal cueing. Social Work: Goals Discharge Plan return home with home care svs and family support Potential for Family Training pt's children are involved and supportive Anticipated Discharge Home Destination Discharge With home care svs and family support Care Plan: Care Plan Mobility- Improve/Maintain Start: 03/21/18 17:34 Freq: DAILY Status: Active Target: Protocol: Activity Type Activity Date Activity User E-Sign Co-Sign Detail Recorded Client Recorded Date Recorded By Document 03/21/18 17:34 [id number] 03/21/18 17:36 [id number] 03/21/18 17:34 PMRU Outcome: Mobility Physical Therapy Evaluation and Yes Treatment Activity OOB with Assistance Yes WBAT Yes Device Yes Assistance Yes Patient to be seen 5x/wk for 60-120 min/ Therex day for: Mobility Training Gait Training W/C Mobility Balance Outcome/Goals Maintain/ Achieve Baseline Mobility Status Improve Mobility Status Demonstrates Proper Use of Assistive Devices Free from Complications of Immobility Bed Mobility Yes: independnet Transfers Yes: independent with manoj walker Gait x ft Yes: independent with hemiwalker 50' W/C Mobility x ft Yes: independent with RU/LE 300' Up/Down Stairs Yes: inddependent up /down 5 stairs. See nursing assessments. Self administration of medication Appropriate nutrition and hydration Bladder and bowel management for continence and skin protection. Medicine Note: Length of Stay: [5 weeks] Anticipated Discharge Destination: Home Tentative Discharge Date: [05/06/18] Discharged to: [home]
[2018-03-22] MEDS: Potassium Chlor TAB* 20 MEQ TAB.ER PO SCH ×2 (15:14→23:06)
[2018-03-22] MEDS: Magnesium Oxide TAB* 400 MG PO SCH (23:06)
[2018-03-23] MEDS: Heparin VIAL(*) 5000 UNITS/ML VIAL (FIVE THOUSAND) SUBCUT SCH ×3 (06:13→22:17)
[2018-03-23 06:35] LABS: EGFR Non-African American 133.8 (>60)
[2018-03-23] MEDS ORDERED: Magnesium Sulfate IV* 3 GM in NS 0.9% 100 ML* 100 ML IVPB ONE (08:36)
[2018-03-23] MEDS: amLODIPine TAB* 5 MG PO SCH (09:18)
[2018-03-23] MEDS: Docusate CAP* 100 MG PO SCH ×2 (09:18→21:02)
[2018-03-23] MEDS: [UNRECOGNIZED DRUG - OTHER] PO SCH (09:18)
[2018-03-23] MEDS: Magnesium Oxide TAB* 400 MG PO SCH ×2 (09:18→21:03)
[2018-03-23] MEDS: Potassium Chlor TAB* 20 MEQ TAB.ER PO SCH ×3 (09:19→21:03)
[2018-03-23] MEDS: Polyethylene Glycol 3350* 17 GM PACKET PO SCH (09:19)
[2018-03-23] MEDS: [UNRECOGNIZED DRUG - OTHER] PO SCH (09:19)
--- NOTE | 2018-03-23 09:31 | PN ---
Progress Note Date of Service: 03/23/18 Note: VERÓNICA DEGROOT was visited. Nursing and therapy notes read and reviewed. She has some movement now in her left leg. She received a list of high Mg foods from guest specialist yesterday. No chest pain, shortness of breath or abdominal pain. Current Medications: Active Medications Generic Name Dose Route Start Last Admin Trade Name Freq PRN Reason Stop Dose Admin Acetaminophen 650 mg 03/21/18 11:15 Tylenol Tab* PO Q4H PRN FEVER > 101 Al Hydrox/Mg Hydrox/Simethicone 30 ml 03/21/18 11:15 Maalox Plus* PO Q6H PRN INDIGESTION Amlodipine Besylate 5 mg 03/22/18 09:00 03/22/18 08:35 Norvasc Tab* PO 5 mg DAILY TIMA Administration Bisacodyl 10 mg 03/21/18 11:49 Dulcolax Supp* [place] DAILY PRN CONSTIPATION Calcium Carbonate 1,250 mg 03/21/18 11:52 Calcium Carbonate Tab* PO BID PRN indigestion Docusate Sodium 200 mg 03/21/18 21:00 03/22/18 23:06 Colace Cap* PO 200 mg BID TIMA Administration Heparin Sodium (Porcine) 5,000 units 03/21/18 14:00 03/23/18 06:13 Heparin Vial(*) SUBCUT 5,000 units Q8HR TIMA Administration Magnesium Sulfate 3 gm/ Sodium 106 mls @ 53 mls/hr 03/23/18 08:36 Chloride IVPB 03/23/18 10:35 ONCE ONE Magnesium Oxide 400 mg 03/22/18 21:00 03/22/18 23:06 Magox 400 Tab* PO 400 mg BID TIMA Administration Pto:(Coromega [place]- 1 packet 03/22/18 09:00 03/22/18 08:36 3 1 Packet) PO 1 packet QAM TIMA Administration Pto:Echinacea 2 cap 03/22/18 09:00 03/22/18 08:36 Goldseal 2 Cap PO 2 cap DAILY TIMA Administration Polyethylene Glycol/Electrolytes 17 gm 03/22/18 09:00 03/22/18 08:36 Miralax* PO 17 gm DAILY TIMA Administration Potassium Chloride 20 meq 03/22/18 14:00 03/22/18 23:06 Klor Con Er Tab* PO 20 meq TID TIMA Administration Senna 2 tab 03/21/18 11:15 Senokot Tab* PO BEDTIME PRN CONSTIPATION Vital Signs: Vital Signs Temp Pulse Resp BP Pulse Ox 98.5 F 72 18 106/74 97 03/23/18 06:11 03/23/18 06:11 03/23/18 06:11 03/23/18 06:11 03/23/18 06:11 Lab Results: Laboratory Results - last 24 hr 03/23/18 05:58 Sodium 135 Potassium 4.1 Chloride 102 Carbon Dioxide 25 Anion Gap 8 BUN 10 Creatinine 0.47 L Est GFR ( Amer) 161.9 Est GFR (Non-Af Amer) 133.8 BUN/Creatinine Ratio 21.3 H Glucose 102 H Calcium 9.6 Magnesium 1.4 L Exam: GENERAL: no acute distress. alert and appropriate. LUNGS: clear to auscultation bilaterally. CV: regular rate and rhythm ABD: + bowel sounds, soft, non-tender, non-distended EXT: no edema. lacks full extension in the left elbow and has Cassius grade 2 tone in the biceps. Her elbow pain is towards end range of flexion. No tenderness to palpation. No shoulder subluxation, but her shoulder is supported in the chair. NEURO: She has a left cranial nerve VII palsy. 5/5 motor in her right upper and lower extremity with normal sensation. Left UE motor 0/5 throughout. LLE motor showed trace knee ext and ankle PF. Sensation impaired on left side. Assessment/Plan: IMPRESSION: 62-year-old woman status post right frontoparietal intracranial hemorrhage with some mild intraventricular blood and scattered bilateral, mostly posterior, subarachnoid arachnoid hemorrhages. PLAN: # Intracranial hemorrhage. She is supposed to have a repeat MRI of her brain in 1 to 2 months and will need follow up with Neurology. Neurology recommended against use of SSRI or SNRIs. PT/OT/speech. # Fluids, electrolytes, and nutrition. Mechanical soft diet and thin liquids per speech. Hypomagnesemia continues and she will get IV Mg again today. On MgOx 400mg bid and KCL 20mEq bid. Recheck levels in AM. 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 She has some biceps tone. If contracture progresses or persistent pain consider x-ray and consult with ortho regarding possible splinting. # Hypertension. Continue with Norvasc. # Advanced Directives: She is a full code. Her son, Jt, is her surrogate decision maker. She has a total of 6 children, but he is the only that is local and that is the one that she lives with. # Estimated LOS: anticipate d/c around 05/06/18. 03/23/18 09:26
[2018-03-24] MEDS: Heparin VIAL(*) 5000 UNITS/ML VIAL (FIVE THOUSAND) SUBCUT SCH ×3 (06:04→21:18)
[2018-03-24] MEDS: Polyethylene Glycol 3350* 17 GM PACKET PO SCH (10:13)
[2018-03-24] MEDS: amLODIPine TAB* 5 MG PO SCH (10:14)
[2018-03-24] MEDS: Calcium Carbonate TAB* 1250 MG (CALCIUM 500 MG) PO PRN (10:14)
[2018-03-24] MEDS: Potassium Chlor TAB* 20 MEQ TAB.ER PO SCH ×3 (10:14→21:18)
[2018-03-24] MEDS: Magnesium Oxide TAB* 400 MG PO SCH ×2 (10:14→21:17)
[2018-03-24] MEDS: Docusate CAP* 100 MG PO SCH ×2 (10:14→21:18)
[2018-03-24] MEDS: [UNRECOGNIZED DRUG - OTHER] PO SCH (10:15)
[2018-03-24] MEDS: [UNRECOGNIZED DRUG - OTHER] PO SCH (10:18)
--- NOTE | 2018-03-24 17:09 | PN ---
Progress Note Date of Service: 03/24/18 Note: VERÓNICA DEGROOT was visited. Therapy notes read and reviewed. She was complaining of dry eyes but otherwise ok. No movement seen in arm. She has a previous contracture. Current Medications: Active Medications Generic Name Dose Route Start Last Admin Trade Name Freq PRN Reason Stop Dose Admin Acetaminophen 650 mg 03/21/18 11:15 Tylenol Tab* PO Q4H PRN FEVER > 101 Al Hydrox/Mg Hydrox/Simethicone 30 ml 03/21/18 11:15 Maalox Plus* PO Q6H PRN INDIGESTION Amlodipine Besylate 5 mg 03/22/18 09:00 03/24/18 10:14 Norvasc Tab* PO 5 mg DAILY TIMA Administration Bisacodyl 10 mg 03/21/18 11:49 Dulcolax Supp* [place] DAILY PRN CONSTIPATION Calcium Carbonate 1,250 mg 03/21/18 11:52 03/24/18 10:14 Calcium Carbonate Tab* PO 1,250 mg BID PRN Administration indigestion Docusate Sodium 200 mg 03/21/18 21:00 03/24/18 10:14 Colace Cap* PO 200 mg BID TIMA Administration Heparin Sodium (Porcine) 5,000 units 03/21/18 14:00 03/24/18 13:03 Heparin Vial(*) SUBCUT 5,000 units Q8HR TIMA Administration Magnesium Oxide 400 mg 03/22/18 21:00 03/24/18 10:14 Magox 400 Tab* PO 400 mg BID TIMA Administration Pto:(Coromega [place]- 1 packet 03/22/18 09:00 03/24/18 10:18 3 1 Packet) PO 1 packet QAM TIMA Administration Pto:Echinacea 2 cap 03/22/18 09:00 03/24/18 10:15 Goldseal 2 Cap PO 2 cap DAILY TIMA Administration Polyethylene Glycol/Electrolytes 17 gm 03/22/18 09:00 03/24/18 10:13 Miralax* PO Not Given DAILY TIMA Potassium Chloride 20 meq 03/22/18 14:00 03/24/18 13:04 Klor Con Er Tab* PO 20 meq TID TIMA Administration Senna 2 tab 03/21/18 11:15 Senokot Tab* PO BEDTIME PRN CONSTIPATION Vital Signs: Vital Signs Temp Pulse Resp BP Pulse Ox 98.5 F 84 18 111/76 96 03/24/18 16:32 03/24/18 16:32 03/24/18 16:32 03/24/18 16:32 03/24/18 16:37 Lab Results: Laboratory Results - last 24 hr 03/24/18 06:59 Sodium 133 L Potassium 4.3 Chloride 99 L Carbon Dioxide 28 Anion Gap 6 BUN 10 Creatinine 0.54 Est GFR ( Amer) 138.0 Est GFR (Non-Af Amer) 114.0 BUN/Creatinine Ratio 18.5 Glucose 102 H Calcium 9.7 Magnesium 1.6 L Exam: GENERAL: no acute distress. alert and appropriate. LUNGS: clear to auscultation bilaterally. HEART: regular rate and rhythm ABDOMEN: + bowel sounds, soft, non-tender, non-distended EXTREMITIES: no edema. lacks full extension in the left elbow NEUROLOGIC: She has a left cranial nerve VII palsy. 5/5 motor in her right upper and lower extremity with normal sensation. Left UE motor 0/5 throughout. LLE motor showed trace knee ext and ankle PF. Sensation impaired on left side. Assessment/Plan: 1. Intracranial hemorrhage. Will need repeat MRI of her brain in 1 to 2 months ; follow up with Neurology. Neurology recommended against use of SSRI or SNRIs. PT/OT/CHILDCARE DIRECTOR. 2. Fluids, electrolytes, and nutrition. Mechanical soft diet and thin liquids per speech.. On MgOx 400mg bid and KCL 20mEq bid. Recheck levels 3. 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 If contracture progresses may need x-ray and consult with ortho regarding possible splinting. 4. Hypertension. Continue with Norvasc. 5. Advanced Directives: She is a full code. Her son, Jt, is her surrogate decision maker. 6. Estimated LOS: anticipate d/c around 05/06/18. 03/24/18 17:12
[2018-03-25] MEDS: Heparin VIAL(*) 5000 UNITS/ML VIAL (FIVE THOUSAND) SUBCUT SCH ×3 (05:39→21:41)
[2018-03-25] MEDS: amLODIPine TAB* 5 MG PO SCH (09:47)
[2018-03-25] MEDS: [UNRECOGNIZED DRUG - OTHER] PO SCH (09:48)
[2018-03-25] MEDS: [UNRECOGNIZED DRUG - OTHER] PO SCH (09:48)
[2018-03-25] MEDS: Docusate CAP* 100 MG PO SCH ×2 (09:48→21:41)
[2018-03-25] MEDS: Potassium Chlor TAB* 20 MEQ TAB.ER PO SCH ×3 (09:49→21:42)
[2018-03-25] MEDS: Polyethylene Glycol 3350* 17 GM PACKET PO SCH (09:49)
[2018-03-25] MEDS: Magnesium Oxide TAB* 400 MG PO SCH ×2 (09:49→21:42)
--- NOTE | 2018-03-25 12:57 | PMRUTEAM ---
PMRU: Team Meeting Current Status: Nursing: Current Status Skin Deviations [Coccyx] Other Skin Deviations [Right Groin] Previous Access Point Skin Deviation Description [ redness-blanchable Coccyx] Skin Deviation Description [ slightly pink Right Groin] Physical Therapy: Current Status Bed Mobility Assistance Independent Transfer Moblility Assistance Max Assist,2 or More Person Assist Transfer/Bed Mobility Hand Hold Recommended Devices Ambulation Assistance Independent Occupational Therapy: Current Status Upper Body Dressing Mod Assist Lower Body Dressing Total Assist,2 Person Assist Lower Body Dressing Progress rolling in bed or standing at bedrail Bathing Mod Assist Bathing Progress in shower w/c today Toileting Total Assist,2 Person Assist Toileting Progress rolling in bed or standing at bedrail Toilet Transfer Max Asst,2 Person Assist Toilet Transfer Progress 2 max A to stand at bedrail and swap out Shower Transfer Total Assist,2 Person Assist Shower Transfer Progress lisa to shower w/c Eating Supervision Eating Progress set-up Rec Therapy: Current Status Summary of Assessment and RT assessment complete and pt. is aware of Clinical Impression services. Pt. has been open to visits and has access to her leisure interests when she is wants them. Treatment Goals Patient will engage in recreation and leisure activities while on the unit. Treatment Plan Provide and encourage involvement in RT services. Social Work: Current Status Discharge Plan return home with home care svs and family support Potential for Family Training pt's family and friends are involved and supportive Anticipated Discharge Home Destination Discharge With home care svs and family support Nutrition: Current Status Monitoring Pt admitted to [facility] s/p intracranial hemorrhage. Pt with suboptimal apppetite (25-50% of meals), but pt reports that her appetite is better than it has been. Will monitor for improvement. Pt receiving [place] ground texture and thin liquids per [employer] recs. Noted low Mag and K+; pt also requesting information on high-mag foods. Provided list of high-mag and high-K foods, and provided a few examples. Explained that pt is receiving repletion in this setting, but may request high- mag/high-K items as available here, and at home as well. Last BM unknown. No edema per nursing assessments; did not discuss wt hx this visit, but will follow to establish consistent wt. Speech: Current Status Speech Current Status Goal 1 Mild-moderate impairment Speech Goal 2 Current Status Moderate impairment Speech Goal 3 Current Status Moderate impairment Goals: Physical Therapy: Initial Goals Bed Mobility Assistance Independent Transfer Mobility Assistance Independent Transfer/Bed Mobility Manoj Walker Recommended Devices Ambulation Independent Ambulation Recommended Devices Manoj Walker Ambulation Distance 50 Wheelchair Propulsion Ability Independent Stairs Assistance Independent Stair Recommended Devices One Rail Number of Stairs 5 Physical Therapy: Updated Goals Transfer/Bed Mobility Lisa Lift Recommended Devices Occupational Therapy: Initial Goals Goals to be Completed in (Days 4-6 weeks ) Upper Body Bathing Routine Modified Independent with Lower Body Bathing Routine Modified Independent with Upper Body Dressing Routine Modified Independent with Lower Body Dressing Routine Modified Independent with Toilet Hygeine and Clothing Modified Independent with Management Routine Toilet Transfer Routine Modified Independent with Tub Transfer Routine Supervision/Set Up Functional Transfers for ADL Modified Independent with Grooming Routine Modified Independent with Feeding Routine Modified Independent with Nutrition: Goals Intervention Goals 1. Pt will tolerate least restrictive diet texture without s/sx difficulty chewing 2. Intake will improve to consistently at least 50 % of meals 3. Intake will be adequate to maintain stable wt Speech: Goals Speech Goal 1 Comprehension Speech Evaluation Status Goal Mild-moderate impairment 1 Speech Current Status Goal 1 Mild-moderate impairment Goal 1 Comments Long-Term Goal: Pt will use compensatory strategies to demonstrate comprehension of paragraph length verbal and written information of moderate complexity, 100% accuracy, given minimal extra time, Independently. Short-Term Goal : Pt will use compensatory strategies to demonstrate comprehension of paragraph length verbal and written information of moderate complexity, 90% accuracy, given moderate extra time, and Moderate skilled instruction and cueing. Short-Term Goal 2: Pt will use compensatory strategies to attend to information in the Left visual field to to demonstrate comprehension of paragraph length written information of moderate complexity, 90% accuracy, given moderate extra time, and Moderate skilled instruction and cueing. Speech Goal 2 Problem Solving Speech Goal 2 Evaluation Moderate impairment Status Speech Goal 2 Current Status Moderate impairment Speech Goal 2 Comments Long-Term Goal: Pt will use compensatory strategies to solve moderately complex routine problems, with 100% accuracy, Independently, for ADLs such as shopping, time and money management. Short-Term Goal 1: Pt will use compensatory strategies to solve moderately complex routine problems, with 80% accuracy, given Moderate skilled instruction and cueing. Short-Term Goal 2: Pt will use compensatory strategies to attend to information in the Left visual field to solve moderately complex problems, with 80% accuracy, given Moderate skilled instruction and cueing. Speech Goal 3 Motor speech Speech Goal 3 Evaluation Moderate impairment Status Speech Goal 3 Current Status Moderate impairment Speech Goal 3 Comments Snf Goal: Patient will demonstrate 50% improvement in range and rate of motion of her Left side labial retractors, elevators and depressors, to achieve functional ability to eat and drink without spillage, speak with minimal distortion, and make appropriate facial expressions. Short Term Goal: Patient will demonstrate 20% improvement in range and rate of motion of her Left side labial retractors, elevators and depressors, to achieve functional ability to eat and drink without spillage, speak with minimal distortion, and make appropriate facial expressions, given Maximal cueing. Social Work: Goals Discharge Plan return home with home care svs and family support Potential for Family Training pt's family and friends are involved and supportive Anticipated Discharge Home Destination Discharge With home care svs and family support Care Plan: Care Plan ADL's - Improve/Maintain Start: 03/23/18 00:21 Freq: DAILY Status: Active Target: Protocol: Activity Type Activity Date Activity User E-Sign Co-Sign Detail Recorded Client Recorded Date Recorded By Document 03/24/18 11:22 [id number] [id number] 03/24/18 11:23 [id number] 03/24/18 11:22 PMRU Outcome: ADL's/ADL Transfers Orders/Interventions Occupational Therapy Evaluation & Treatment Communication Tool in Patient Room Patient to receive OT 5x/wk for 60-120 Therex min/day Self Care Management Group Therapy Neuromuscular ReEducation UE/LE ADL's with Assist Yes: mod I ADL Transfers with Assist Yes: mod I Toileting: Transfers,Clothing Management Yes: mod I ,Hygeine w/Assist Progression Toward Outcome/Goals Progressing Outcome/Goals Met Pt is slowly progressing towards OT goals. Pt is limited by her significant L- sided weakness and L-neglect. Also, because of her cognitive deficits, she requires step- by-step sequencing for her routine and for any basic problem solving . Carry-over between sessions is limited. Communication-Improve/Maintain Start: 03/23/18 00:21 Freq: DAILY Status: Active Target: Protocol: Activity Type Activity Date Activity User E-Sign Co-Sign Detail Recorded Client Recorded Date Recorded By Document 03/25/18 01:00 [id number] [id number] 03/25/18 02:05 [id number] 03/25/18 01:00 PMRU Outcome: Communication/Cognitive Status Outcome/Goals Use Comm Tools/ Devices Makes Needs Known Effectively Progression Toward Outcomes/Goals Progressing Outcome/Goals Met Comment pt ringing appropriately Discharge Planning - Improve/Maintain Start: 03/23/18 00:21 Freq: DAILY Status: Active Target: Protocol: Activity Type Activity Date Activity User E-Sign Co-Sign Detail Recorded Client Recorded Date Recorded By Document 03/25/18 01:00 [id number] 03/25/18 02:05 [id number] 03/25/18 01:00 PMRU Outcome: Discharge Planning Update Patient Family No Outcome/Goals Demonstrates Understanding of Discharge Plan Progression Toward Outcome/Goals Progressing Education-Improve/Maintain Start: 03/23/18 00:21 Freq: QSHIFT Status: Active Target: Protocol: Activity Type Activity Date Activity User E-Sign Co-Sign Detail Recorded Client Recorded Date Recorded By Document 03/24/18 01:04 [id number] [email or web address] 03/24/18 01:05 [id number] 03/24/18 01:04 PMRU Outcome: Education Outcome/Goals Demonstrate/ Verbalize Understanding of Written Discharge Instructions Demonstrates Skills Encourage Questions Progression Toward Outcome/Goals Progressing /GI-Improve/Maintain Start: 03/23/18 00:21 Freq: QSHIFT Status: Active Target: Protocol: Activity Type Activity Date Activity User E-Sign Co-Sign Detail Recorded Client Recorded Date Recorded By Document 03/24/18 01:04 [id number] 03/24/18 01:05 [id number] 03/24/18 01:04 PMRU Outcome: Genitourinary/ Gastrointestinal Genitourinary- Outcome/Goals Maintain/ Achieve Urinary Continence Gastrointestinal-Outcome/Goals Maintain/ Achieve Bowel Regularity in Accordance with Pt's Baseline Prevent Constipation Progression Toward Outcome/Goals - Progressing Progression Toward Outcome/Goals - GI Progressing Outcome/Goals Met Comment pt used bedpan x2 Mobility- Improve/Maintain Start: 03/21/18 17:34 Freq: DAILY Status: Active Target: Protocol: Activity Type Activity Date Activity User E-Sign Co-Sign Detail Recorded Client Recorded Date Recorded By Document 03/22/18 15:03 [id number] [email or web address] 03/22/18 15:03 [id number] 03/22/18 15:03 PMRU Outcome: Mobility Physical Therapy Evaluation and Yes Treatment Activity OOB with Assistance Yes WBAT Yes Device Yes Assistance Yes Patient to be seen 5x/wk for 60-120 min/ Therex day for: Mobility Training Gait Training W/C Mobility Balance Outcome/Goals Maintain/ Achieve Baseline Mobility Status Improve Mobility Status Demonstrates Proper Use of Assistive Devices Free from Complications of Immobility Progression Toward Outcome/Goals Progressing Outcome/Goals Met Comment improved ability to extend LLE against gravity Bed Mobility Yes: independnet Transfers Yes: independent with manoj walker Gait x ft Yes: independent with hemiwalker 50' W/C Mobility x ft Yes: independent with RU/LE 300' Up/Down Stairs Yes: inddependent up /down 5 stairs. Neurological- Improve/Maintain Start: 03/23/18 00:21 Freq: QSHIFT Status: Active Target: Protocol: Activity Type Activity Date Activity User E-Sign Co-Sign Detail Recorded Client Recorded Date Recorded By Document 03/24/18 01:04 [id number] [email or web address] 03/24/18 01:05 [id number] 03/24/18 01:04 PMRU Outcome: Neurological Weakness/Aphasia Weakness Left Side Outcome/Goals Maintain/ Achieve Baseline Neurological Status Maintain/ Improve Strength/ROM Progression Toward Outcome/Goals Progressing Pain/Comfort- Improve/Maintain Start: 03/23/18 00:21 Freq: QSHIFT Status: Active Target: Protocol: Activity Type Activity Date Activity User E-Sign Co-Sign Detail Recorded Client Recorded Date Recorded By Document 03/24/18 01:04 [id number] 03/24/18 01:05 [id number] 03/24/18 01:04 PMRU Outcome: Pain/Comfort Outcome/Goals Demonstrates Knowledge and Use of Available Comfort Measures Achieves Acceptable Comfort/Pain Level as Determined by Patient/Condit Maintain Comfort Level Allowing Patient to Fully Participate in Rehab Progression Toward Outcome/Goals Progressing Outcome/Goals Met Comment pt denies pain Safety- Improve/Maintain Start: 03/23/18 00:21 Freq: QSHIFT Status: Active Target: Protocol: Activity Type Activity Date Activity User E-Sign Co-Sign Detail Recorded Client Recorded Date Recorded By Document 03/24/18 01:04 [id number] 03/24/18 01:05 [id number] 03/24/18 01:04 PMRU Outcome: Safety Outcome/Goals Remain Free of Injury or Harm Cooperates with Safety Measures for Least Restrictive Environment Prevent Falls/ Injury Outcome/Goals Met Comment PA in place Skin- Improve/Maintain Start: 03/23/18 00:21 Freq: QSHIFT Status: Active Target: Protocol: Activity Type Activity Date Activity User E-Sign Co-Sign Detail Recorded Client Recorded Date Recorded By Document 03/24/18 01:04 [id number] 03/24/18 01:05 [id number] 03/24/18 01:04 PMRU Outcome: Skin Skin Risk Level Medium Skin Orders Dressing Change Multipodus Boot Turn/Position q2hr While in Bed Outcome/Goals Maintain/ Improve Skin Intergrity Outcome/Goals Met Comment lotion applied to bum, cushion placed Medicine Note: Length of Stay: 6 weeks Anticipated Discharge Destination: Home Tentative Discharge Date: 05/06/18 Discharged to: Home
--- NOTE | 2018-03-25 17:01 | PN ---
Progress Note Date of Service: 03/25/18 Note: VERÓNICA DEGROOT was visited. Therapy notes read and reviewed. She was discussed in interdisciplinary team rounds. She has a long way to go. 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 Current Medications: Active Medications Generic Name Dose Route Start Last Admin Trade Name Freq PRN Reason Stop Dose Admin Acetaminophen 650 mg 03/21/18 11:15 Tylenol Tab* PO Q4H PRN FEVER > 101 Al Hydrox/Mg Hydrox/Simethicone 30 ml 03/21/18 11:15 Maalox Plus* PO Q6H PRN INDIGESTION Amlodipine Besylate 5 mg 03/22/18 09:00 03/25/18 09:47 Norvasc Tab* PO 5 mg DAILY TIMA Administration Bisacodyl 10 mg 03/21/18 11:49 Dulcolax Supp* [place] DAILY PRN CONSTIPATION Calcium Carbonate 1,250 mg 03/21/18 11:52 03/24/18 10:14 Calcium Carbonate Tab* PO 1,250 mg BID PRN Administration indigestion Docusate Sodium 200 mg 03/21/18 21:00 03/25/18 09:48 Colace Cap* PO Not Given BID TIMA Heparin Sodium (Porcine) 5,000 units 03/21/18 14:00 03/25/18 15:14 Heparin Vial(*) SUBCUT 5,000 units Q8HR TIMA Administration Magnesium Oxide 400 mg 03/22/18 21:00 03/25/18 09:49 Magox 400 Tab* PO 400 mg BID TIMA Administration Pto:(Coromega [place]- 1 packet 03/22/18 09:00 03/25/18 09:48 3 1 Packet) PO 1 packet QAM TIMA Administration Pto:Echinacea 2 cap 03/22/18 09:00 03/25/18 09:48 Goldseal 2 Cap PO 2 cap DAILY TIMA Administration Polyethylene Glycol/Electrolytes 17 gm 03/22/18 09:00 03/25/18 09:49 Miralax* PO Not Given DAILY TIMA Potassium Chloride 20 meq 03/22/18 14:00 03/25/18 15:17 Klor Con Er Tab* PO 20 meq TID TIMA Administration Senna 2 tab 03/21/18 11:15 Senokot Tab* PO BEDTIME PRN CONSTIPATION Vital Signs: Vital Signs Temp Pulse Resp BP Pulse Ox 98.5 F 83 16 127/92 96 03/25/18 05:33 03/25/18 05:33 03/25/18 05:33 03/25/18 05:33 03/25/18 05:33 Exam: GENERAL: no acute distress. alert and appropriate. LUNGS: clear to auscultation bilaterally. HEART: regular rate and rhythm ABDOMEN: + bowel sounds, soft, non-tender, non-distended EXTREMITIES: no edema. lacks full extension in the left elbow NEUROLOGIC: Left cranial nerve VII palsy. 5/5 motor in her right upper and lower extremity with normal sensation. Left UE motor 0/5 throughout. LLE motor showed trace knee ext and ankle PF. Sensation impaired on left side. Assessment/Plan: 1. Intracranial hemorrhage. Will need repeat MRI of her brain in 1 to 2 months ; follow up with Neurology. Neurology recommended against use of SSRI or SNRIs. PT/OT/COMBATANT DIVER QUALIFIED. 2. Fluids, electrolytes, and nutrition. Mechanical soft diet and thin liquids per speech.. On MgOx 400mg bid and KCL 20mEq bid. Recheck levels 3. 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 If contracture progresses may need x-ray and consult with ortho regarding possible splinting. 4. Hypertension. Continue with Norvasc. 5. Advanced Directives: She is a full code. Her son, Jt, is her surrogate decision maker. 6. Estimated LOS: anticipate d/c around 05/06/18. 03/25/18 17:03
[2018-03-26] MEDS: Heparin VIAL(*) 5000 UNITS/ML VIAL (FIVE THOUSAND) SUBCUT SCH ×3 (05:54→21:22)
[2018-03-26 07:28] LABS: ABS Basophils 0.1 10^3/ul (0-0.2); ABS Eosinophils 0.1 10^3/ul (0-0.6); ABS Lymphocytes 1.7 10^3/ul (1.0-4.8); ABS Monocytes 1.2 10^3/ul (0-0.8); ABS Neutrophils 5.6 10^3/ul (1.5-7.7); ABS Nucleated RBC 0 10^3/ul; Eosinophil % 1.1 % (0-6); Hematocrit 39 % (35-47); Hemoglobin 13.6 g/dl (12.0-16.0); Lymphocyte % 19.7 % (25-47); Mean Corpuscular HGB Conc 35 g/dl (31-36); Mean Corpuscular Hemoglobin 36 pg (27-31); Mean Corpuscular Volume 102 fL (80-97); Mean Platelet Volume 8.3 um3 (7.4-10.4); Nucleated Red Blood Cells % 0; Platelet Count 612 10^3/ul (150-450); Red Blood Count 3.79 10^6/ul (4.00-5.40); Red Cell Distribution Width 13 % (10.5-15); White Blood Count 8.7 10^3/ul (3.5-10.8)
[2018-03-26 07:46] LABS: EGFR Non-African American 119.1 (>60)
[2018-03-26] MEDS: [UNRECOGNIZED DRUG - OTHER] PO SCH (09:17)
[2018-03-26] MEDS: amLODIPine TAB* 5 MG PO SCH (09:17)
[2018-03-26] MEDS: Docusate CAP* 100 MG PO SCH ×2 (09:18→21:24)
[2018-03-26] MEDS: [UNRECOGNIZED DRUG - OTHER] PO SCH (09:19)
[2018-03-26] MEDS: Magnesium Oxide TAB* 400 MG PO SCH (09:20)
[2018-03-26] MEDS: Polyethylene Glycol 3350* 17 GM PACKET PO SCH (09:20)
[2018-03-26] MEDS: Potassium Chlor TAB* 20 MEQ TAB.ER PO SCH ×2 (09:20→15:28)
--- NOTE | 2018-03-26 19:41 | PN ---
Progress Note Date of Service: 03/26/18 Note: VERÓNICA DEGROOT was visited. Therapy notes read and reviewed. She has some definite movement in her left glutes and hamstrings. No active hip flexion seen by me. Platelet count a little high Current Medications: Active Medications Generic Name Dose Route Start Last Admin Trade Name Freq PRN Reason Stop Dose Admin Acetaminophen 650 mg 03/21/18 11:15 Tylenol Tab* PO Q4H PRN FEVER > 101 Al Hydrox/Mg Hydrox/Simethicone 30 ml 03/21/18 11:15 Maalox Plus* PO Q6H PRN INDIGESTION Amlodipine Besylate 5 mg 03/22/18 09:00 03/26/18 09:17 Norvasc Tab* PO 5 mg DAILY TIMA Administration Bisacodyl 10 mg 03/21/18 11:49 Dulcolax Supp* [place] DAILY PRN CONSTIPATION Calcium Carbonate 1,250 mg 03/21/18 11:52 03/24/18 10:14 Calcium Carbonate Tab* PO 1,250 mg BID PRN Administration indigestion Docusate Sodium 200 mg 03/21/18 21:00 03/26/18 09:18 Colace Cap* PO 200 mg BID TIMA Administration Heparin Sodium (Porcine) 5,000 units 03/21/18 14:00 03/26/18 15:28 Heparin Vial(*) SUBCUT 5,000 units Q8HR TIMA Administration Magnesium Oxide 400 mg 03/22/18 21:00 03/26/18 09:20 Magox 400 Tab* PO 400 mg BID TIMA Administration Pto:(Coromega [place]- 1 packet 03/22/18 09:00 03/26/18 09:17 3 1 Packet) PO 1 packet QAM TIMA Administration (Echinacea Goldseal 1 cap 03/27/18 09:00 1 Cap) PO BID TIMA Pto: (Advanced 2 cap 03/27/18 09:00 Acidophilus Cap) PO DAILY TIMA Polyethylene Glycol/Electrolytes 17 gm 03/22/18 09:00 03/26/18 09:20 Miralax* PO Not Given DAILY TIMA Potassium Chloride 20 meq 03/22/18 14:00 03/26/18 15:28 Klor Con Er Tab* PO 20 meq TID TIMA Administration Senna 2 tab 03/21/18 11:15 Senokot Tab* PO BEDTIME PRN CONSTIPATION Vital Signs: Vital Signs Temp Pulse Resp BP Pulse Ox 98.1 F 79 18 106/67 94 03/26/18 15:52 03/26/18 15:52 03/26/18 19:19 03/26/18 15:52 03/26/18 19:19 Lab Results: Laboratory Results - last 24 hr 03/26/18 03/26/18 06:43 06:43 WBC 8.7 RBC 3.79 L Hgb 13.6 Hct 39 MCV 102 H MCH 36 H MCHC 35 RDW 13 Plt Count 612 H D MPV 8.3 Neut % (Auto) 64.7 Lymph % (Auto) 19.7 L Mccormick % (Auto) 13.3 H Eos % (Auto) 1.1 Baso % (Auto) 1.2 Absolute Neuts (auto) 5.6 Absolute Lymphs (auto) 1.7 Absolute Monos (auto) 1.2 H Absolute Eos (auto) 0.1 Absolute Basos (auto) 0.1 Absolute Nucleated RBC 0 Nucleated RBC % 0 Sodium 134 L Potassium 4.4 Chloride 100 L Carbon Dioxide 24 Anion Gap 10 BUN 12 Creatinine 0.52 Est GFR ( Amer) 144.1 Est GFR (Non-Af Amer) 119.1 BUN/Creatinine Ratio 23.1 H Glucose 98 Calcium 9.9 Total Bilirubin 0.30 AST 26 ALT 55 H Alkaline Phosphatase 41 Total Protein 6.7 Albumin 3.7 Globulin 3.0 Albumin/Globulin Ratio 1.2 Exam: GENERAL: no acute distress. alert and appropriate. LUNGS: clear to auscultation bilaterally. HEART: regular rate and rhythm ABDOMEN: + bowel sounds, soft, non-tender, non-distended EXTREMITIES: no edema. lacks full extension in the left elbow NEUROLOGIC: Left cranial nerve VII palsy. 5/5 motor in her right upper and lower extremity with normal sensation. Left UE motor 0/5 throughout. LLE motor showed 2/5 knee ext and hip extension, trace ankle PF. Sensation impaired on left side. Assessment/Plan: 1. Intracranial hemorrhage. Will need repeat MRI of her brain in 1 to 2 months ; follow up with Neurology. 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 2. F/E/N: Mechanical soft diet and thin liquids per speech.. On MgOx 400mg bid and KCL 20mEq TID. Electrolytes ok today, will cut back 3. 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 If contracture progresses may need x-ray and consult with ortho regarding possible splinting. 4. Hypertension. Continue with Norvasc. 5. Advanced Directives: She is a full code. Her son, Jt, is her surrogate decision maker. 6. Estimated LOS: anticipate d/c around 05/06/18. 03/26/18 19:44
[2018-03-27] MEDS: Heparin VIAL(*) 5000 UNITS/ML VIAL (FIVE THOUSAND) SUBCUT SCH ×3 (05:09→21:10)
[2018-03-27] MEDS: Docusate CAP* 100 MG PO SCH ×2 (09:16→21:10)
[2018-03-27] MEDS: Polyethylene Glycol 3350* 17 GM PACKET PO SCH (09:16)
[2018-03-27] MEDS: [UNRECOGNIZED DRUG - OTHER] PO SCH (09:18)
[2018-03-27] MEDS: amLODIPine TAB* 5 MG PO SCH (09:19)
[2018-03-27] MEDS: [UNRECOGNIZED DRUG - OTHER] PO SCH ×2 (09:20→21:14)
[2018-03-27] MEDS: Potassium Chlor TAB* 20 MEQ TAB.ER PO SCH (09:21)
[2018-03-27] MEDS: [UNRECOGNIZED DRUG - OTHER] PO SCH (09:21)
[2018-03-27] MEDS: Magnesium Oxide TAB* 400 MG PO SCH (09:21)
--- NOTE | 2018-03-27 17:30 | PN ---
Progress Note Date of Service: 03/27/18 Note: VERÓNICA DEGROOT was visited. Therapy notes read and reviewed. She practiced standing in physical therapy-still has a way to go. Encouraged that she is making gains Current Medications: Active Medications Generic Name Dose Route Start Last Admin Trade Name Freq PRN Reason Stop Dose Admin Acetaminophen 650 mg 03/21/18 11:15 Tylenol Tab* PO Q4H PRN FEVER > 101 Al Hydrox/Mg Hydrox/Simethicone 30 ml 03/21/18 11:15 Maalox Plus* PO Q6H PRN INDIGESTION Amlodipine Besylate 5 mg 03/22/18 09:00 03/27/18 09:19 Norvasc Tab* PO 5 mg DAILY TIMA Administration Bisacodyl 10 mg 03/21/18 11:49 Dulcolax Supp* [place] DAILY PRN CONSTIPATION Calcium Carbonate 1,250 mg 03/21/18 11:52 03/24/18 10:14 Calcium Carbonate Tab* PO 1,250 mg BID PRN Administration indigestion Docusate Sodium 200 mg 03/21/18 21:00 03/27/18 09:16 Colace Cap* PO Not Given BID TIMA Heparin Sodium (Porcine) 5,000 units 03/21/18 14:00 03/27/18 13:21 Heparin Vial(*) SUBCUT 5,000 units Q8HR TIMA Administration Magnesium Oxide 400 mg 03/27/18 09:00 03/27/18 09:21 Magox 400 Tab* PO 400 mg DAILY TIMA Administration Pto:(Coromega [place]- 1 packet 03/22/18 09:00 03/27/18 09:21 3 1 Packet) PO 1 packet QAM TIMA Administration (Echinacea Goldseal 1 cap 03/27/18 09:00 03/27/18 09:20 1 Cap) PO 1 cap BID TIMA Administration Pto: (Advanced 2 cap 03/27/18 09:00 03/27/18 09:18 Acidophilus Cap) PO 2 cap DAILY TIMA Administration Polyethylene Glycol/Electrolytes 17 gm 03/22/18 09:00 03/27/18 09:16 Miralax* PO Not Given DAILY TIMA Potassium Chloride 20 meq 03/27/18 09:00 03/27/18 09:21 Klor Con Er Tab* PO 20 meq DAILY TIMA Administration Senna 2 tab 03/21/18 11:15 Senokot Tab* PO BEDTIME PRN CONSTIPATION Vital Signs: Vital Signs Temp Pulse Resp BP Pulse Ox 98.5 F 71 16 113/67 98 03/27/18 15:14 03/27/18 15:14 03/27/18 15:14 03/27/18 15:14 03/27/18 15:14 Exam: GENERAL: no acute distress. alert and appropriate. LUNGS: clear to auscultation bilaterally. HEART: regular rate and rhythm ABDOMEN: + bowel sounds, soft, non-tender, non-distended EXTREMITIES: no edema. lacks full extension in the left elbow NEUROLOGIC: Left cranial nerve VII palsy. 5/5 motor in her right upper and lower extremity with normal sensation. Left UE motor 0/5 throughout. LLE motor showed 2/5 knee ext and hip extension, trace ankle PF. Sensation impaired on left side. Assessment/Plan: 1. Intracranial hemorrhage. Will need repeat MRI of her brain in 1 to 2 months ; follow up with Neurology. 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 2. F/E/N: Mechanical soft diet and thin liquids per speech.. On MgOx 400mg bid and KCL 20mEq TID. Electrolytes ok today, will cut back 3. 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 If contracture progresses may need x-ray and consult with ortho regarding possible splinting. 4. Hypertension. Continue with Norvasc. 5. Advanced Directives: She is a full code. Her son, Jt, is her surrogate decision maker. 6. Estimated LOS: anticipate d/c around 05/06/18. 03/27/18 17:31
[2018-03-27] MEDS: Calcium Carbonate TAB* 1250 MG (CALCIUM 500 MG) PO PRN (21:10)
[2018-03-28] MEDS: Heparin VIAL(*) 5000 UNITS/ML VIAL (FIVE THOUSAND) SUBCUT SCH ×3 (05:32→23:52)
[2018-03-28] MEDS: amLODIPine TAB* 5 MG PO SCH (10:52)
[2018-03-28] MEDS: [UNRECOGNIZED DRUG - OTHER] PO SCH (10:52)
[2018-03-28] MEDS: [UNRECOGNIZED DRUG - OTHER] PO SCH (10:53)
[2018-03-28] MEDS: Docusate CAP* 100 MG PO SCH ×2 (10:53→20:41)
[2018-03-28] MEDS: Polyethylene Glycol 3350* 17 GM PACKET PO SCH (10:54)
[2018-03-28] MEDS: Potassium Chlor TAB* 20 MEQ TAB.ER PO SCH (10:54)
[2018-03-28] MEDS: [UNRECOGNIZED DRUG - OTHER] PO SCH ×2 (10:54→20:42)
[2018-03-28] MEDS: Magnesium Oxide TAB* 400 MG PO SCH (10:54)
--- NOTE | 2018-03-28 20:11 | PN ---
Progress Note Date of Service: 03/28/18 Note: VERÓNICA DEGROOT was visited. Therapy notes read and reviewed. She says she tried standing in PT, and notes she was quite wobbly. Feels like she is getting stronger. Current Medications: Active Medications Generic Name Dose Route Start Last Admin Trade Name Freq PRN Reason Stop Dose Admin Acetaminophen 650 mg 03/21/18 11:15 Tylenol Tab* PO Q4H PRN FEVER > 101 Al Hydrox/Mg Hydrox/Simethicone 30 ml 03/21/18 11:15 Maalox Plus* PO Q6H PRN INDIGESTION Amlodipine Besylate 5 mg 03/22/18 09:00 03/28/18 10:52 Norvasc Tab* PO 5 mg DAILY TIMA Administration Bisacodyl 10 mg 03/21/18 11:49 Dulcolax Supp* [place] DAILY PRN CONSTIPATION Calcium Carbonate 1,250 mg 03/21/18 11:52 03/27/18 21:10 Calcium Carbonate Tab* PO 1,250 mg BID PRN Administration indigestion Docusate Sodium 200 mg 03/21/18 21:00 03/28/18 10:53 Colace Cap* PO 200 mg BID TIMA Administration Heparin Sodium (Porcine) 5,000 units 03/21/18 14:00 03/28/18 17:08 Heparin Vial(*) SUBCUT 5,000 units Q8HR TIMA Administration Magnesium Oxide 400 mg 03/27/18 09:00 03/28/18 10:54 Magox 400 Tab* PO 400 mg DAILY TIMA Administration Pto:(Coromega [place]- 1 packet 03/22/18 09:00 03/28/18 10:53 3 1 Packet) PO 1 packet QAM TIMA Administration (Echinacea Goldseal 1 cap 03/27/18 09:00 03/28/18 10:54 1 Cap) PO 1 cap BID TIMA Administration Pto: (Advanced 2 cap 03/27/18 09:00 03/28/18 10:52 Acidophilus Cap) PO 2 cap DAILY TIMA Administration Polyethylene Glycol/Electrolytes 17 gm 03/22/18 09:00 03/28/18 10:54 Miralax* PO 17 gm DAILY TIMA Administration Potassium Chloride 20 meq 03/27/18 09:00 03/28/18 10:54 Klor Con Er Tab* PO 20 meq DAILY TIMA Administration Senna 2 tab 03/21/18 11:15 Senokot Tab* PO BEDTIME PRN CONSTIPATION Vital Signs: Vital Signs Temp Pulse Resp BP Pulse Ox 98.3 F 83 16 100/66 100 03/28/18 16:32 03/28/18 16:32 03/28/18 16:32 03/28/18 16:32 03/28/18 16:32 Exam: GENERAL: no acute distress. alert and appropriate. LUNGS: clear to auscultation bilaterally. HEART: regular rate and rhythm ABDOMEN: + bowel sounds, soft, non-tender, non-distended EXTREMITIES: no edema. lacks full extension in the left elbow NEUROLOGIC: Left cranial nerve VII palsy. 5/5 motor in her right upper and lower extremity with normal sensation. Left UE motor 0/5 throughout. LLE motor showed 2/5 knee ext and hip extension, trace ankle PF. Sensation impaired on left side. Assessment/Plan: 1. Intracranial hemorrhage. Will need repeat MRI of her brain in 1 to 2 months ; follow up with Neurology. 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 2. F/E/N: Mechanical soft diet and thin liquids per speech.. On MgOx 400mg daily and KCL 20mEq daily. 3. 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 If contracture progresses may need x-ray and consult with ortho regarding possible splinting. 4. Hypertension. Continue with Norvasc. 5. Advanced Directives: She is a full code. Her son, Jt, is her surrogate decision maker. 6. Estimated LOS: anticipate d/c around 05/06/18. 03/28/18 20:11
[2018-03-29] MEDS: Heparin VIAL(*) 5000 UNITS/ML VIAL (FIVE THOUSAND) SUBCUT SCH ×3 (06:42→21:28)
[2018-03-29] MEDS: [UNRECOGNIZED DRUG - OTHER] PO SCH (08:05)
[2018-03-29] MEDS: [UNRECOGNIZED DRUG - OTHER] PO SCH ×2 (08:05→21:28)
[2018-03-29] MEDS: [UNRECOGNIZED DRUG - OTHER] PO SCH (08:05)
[2018-03-29] MEDS: Docusate CAP* 100 MG PO SCH ×2 (08:06→21:28)
[2018-03-29] MEDS: Polyethylene Glycol 3350* 17 GM PACKET PO SCH (08:06)
[2018-03-29] MEDS: amLODIPine TAB* 5 MG PO SCH (08:06)
[2018-03-29] MEDS: Magnesium Oxide TAB* 400 MG PO SCH (08:06)
[2018-03-29] MEDS: Potassium Chlor TAB* 20 MEQ TAB.ER PO SCH (08:06)
--- NOTE | 2018-03-29 20:29 | PN ---
Progress Note Date of Service: 03/29/18 Note: VERÓNICA DEGROOT was visited. Therapy notes read and reviewed. In good spirits today. Moving out of bed is definitely getting easier. Current Medications: Active Medications Generic Name Dose Route Start Last Admin Trade Name Freq PRN Reason Stop Dose Admin Acetaminophen 650 mg 03/21/18 11:15 Tylenol Tab* PO Q4H PRN FEVER > 101 Al Hydrox/Mg Hydrox/Simethicone 30 ml 03/21/18 11:15 Maalox Plus* PO Q6H PRN INDIGESTION Amlodipine Besylate 5 mg 03/22/18 09:00 03/29/18 08:06 Norvasc Tab* PO 5 mg DAILY TIMA Administration Bisacodyl 10 mg 03/21/18 11:49 Dulcolax Supp* [place] DAILY PRN CONSTIPATION Calcium Carbonate 1,250 mg 03/21/18 11:52 03/27/18 21:10 Calcium Carbonate Tab* PO 1,250 mg BID PRN Administration indigestion Docusate Sodium 200 mg 03/21/18 21:00 03/29/18 08:06 Colace Cap* PO 200 mg BID TIMA Administration Heparin Sodium (Porcine) 5,000 units 03/21/18 14:00 03/29/18 14:02 Heparin Vial(*) SUBCUT 5,000 units Q8HR TIMA Administration Magnesium Oxide 400 mg 03/27/18 09:00 03/29/18 08:06 Magox 400 Tab* PO 400 mg DAILY TIMA Administration Pto:(Coromega [place]- 1 packet 03/22/18 09:00 03/29/18 08:05 3 1 Packet) PO 1 packet QAM TIMA Administration (Echinacea Goldseal 1 cap 03/27/18 09:00 03/29/18 08:05 1 Cap) PO 1 cap BID TIMA Administration Pto: (Advanced 2 cap 03/27/18 09:00 03/29/18 08:05 Acidophilus Cap) PO 2 cap DAILY TIMA Administration Polyethylene Glycol/Electrolytes 17 gm 03/22/18 09:00 03/29/18 08:06 Miralax* PO 17 gm DAILY TIMA Administration Potassium Chloride 20 meq 03/27/18 09:00 03/29/18 08:06 Klor Con Er Tab* PO 20 meq DAILY TIMA Administration Senna 2 tab 03/21/18 11:15 Senokot Tab* PO BEDTIME PRN CONSTIPATION Vital Signs: Vital Signs Temp Pulse Resp BP Pulse Ox 98.5 F 84 20 126/75 100 03/29/18 15:52 03/29/18 15:52 03/29/18 15:52 03/29/18 15:52 03/29/18 15:52 Exam: GENERAL: no acute distress. alert and appropriate. LUNGS: clear to auscultation bilaterally. HEART: regular rate and rhythm ABDOMEN: + bowel sounds, soft, non-tender, non-distended EXTREMITIES: no edema. lacks full extension in the left elbow NEUROLOGIC: Left cranial nerve VII palsy. 5/5 motor in her right upper and lower extremity with normal sensation. Left UE motor 0/5 throughout. LLE motor showed 2/5 knee ext and hip extension, trace ankle PF. Sensation impaired on left side. Assessment/Plan: 1. Intracranial hemorrhage. Will need repeat MRI of her brain in 1 to 2 months ; follow up with Neurology. 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 2. F/E/N: Mechanical soft diet and thin liquids per speech.. On MgOx 400mg daily and KCL 20mEq daily. 3. 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 If contracture progresses may need x-ray and consult with ortho regarding possible splinting. 4. Hypertension. Continue with Norvasc. 5. Advanced Directives: She is a full code. Her son, Jt, is her surrogate decision maker. 6. DVT Prophylaxis: TEDs. Blood thinners contraindicated due to ICH 7. Estimated LOS: anticipate d/c around 05/06/18. 03/29/18 20:32
[2018-03-30] MEDS: Heparin VIAL(*) 5000 UNITS/ML VIAL (FIVE THOUSAND) SUBCUT SCH ×3 (05:50→21:07)
[2018-03-30] MEDS: Polyethylene Glycol 3350* 17 GM PACKET PO SCH (07:03)
[2018-03-30] MEDS: [UNRECOGNIZED DRUG - OTHER] PO SCH (07:03)
[2018-03-30] MEDS: [UNRECOGNIZED DRUG - OTHER] PO SCH (07:03)
[2018-03-30] MEDS: Docusate CAP* 100 MG PO SCH ×2 (07:04→21:06)
[2018-03-30] MEDS: amLODIPine TAB* 5 MG PO SCH (07:04)
[2018-03-30] MEDS: [UNRECOGNIZED DRUG - OTHER] PO SCH ×2 (07:04→21:07)
[2018-03-30] MEDS: Potassium Chlor TAB* 20 MEQ TAB.ER PO SCH (07:04)
[2018-03-30] MEDS: Magnesium Oxide TAB* 400 MG PO SCH (07:05)
--- NOTE | 2018-03-30 20:31 | PN ---
Progress Note Date of Service: 03/30/18 Note: VERÓNICA DEGROOT was visited. Therapy notes read and reviewed. She continues to improve. She is looking forward to resuming therapy in the morning Current Medications: Active Medications Generic Name Dose Route Start Last Admin Trade Name Freq PRN Reason Stop Dose Admin Acetaminophen 650 mg 03/21/18 11:15 Tylenol Tab* PO Q4H PRN FEVER > 101 Al Hydrox/Mg Hydrox/Simethicone 30 ml 03/21/18 11:15 Maalox Plus* PO Q6H PRN INDIGESTION Amlodipine Besylate 5 mg 03/22/18 09:00 03/30/18 07:04 Norvasc Tab* PO 5 mg DAILY TIMA Administration Bisacodyl 10 mg 03/21/18 11:49 Dulcolax Supp* [place] DAILY PRN CONSTIPATION Calcium Carbonate 1,250 mg 03/21/18 11:52 03/27/18 21:10 Calcium Carbonate Tab* PO 1,250 mg BID PRN Administration indigestion Docusate Sodium 200 mg 03/21/18 21:00 03/30/18 07:04 Colace Cap* PO 200 mg BID TIMA Administration Heparin Sodium (Porcine) 5,000 units 03/21/18 14:00 03/30/18 14:25 Heparin Vial(*) SUBCUT 5,000 units Q8HR TIMA Administration Magnesium Oxide 400 mg 03/27/18 09:00 03/30/18 07:05 Magox 400 Tab* PO 400 mg DAILY TIMA Administration Pto:(Coromega [place]- 1 packet 03/22/18 09:00 03/30/18 07:03 3 1 Packet) PO 1 packet QAM TIMA Administration (Echinacea Goldseal 1 cap 03/27/18 09:00 03/30/18 07:04 1 Cap) PO 1 cap BID TIMA Administration Pto: (Advanced 2 cap 03/27/18 09:00 03/30/18 07:03 Acidophilus Cap) PO 2 cap DAILY TIMA Administration Polyethylene Glycol/Electrolytes 17 gm 03/22/18 09:00 03/30/18 07:03 Miralax* PO 17 gm DAILY TIMA Administration Potassium Chloride 20 meq 03/27/18 09:00 03/30/18 07:04 Klor Con Er Tab* PO 20 meq DAILY TIMA Administration Senna 2 tab 03/21/18 11:15 Senokot Tab* PO BEDTIME PRN CONSTIPATION Vital Signs: Vital Signs Temp Pulse Resp BP Pulse Ox 98.1 F 66 20 114/76 98 03/30/18 16:12 03/30/18 16:12 03/30/18 16:12 03/30/18 16:12 03/30/18 16:12 Exam: GENERAL: no acute distress. alert and appropriate. LUNGS: clear to auscultation bilaterally. HEART: regular rate and rhythm ABDOMEN: + bowel sounds, soft, non-tender, non-distended EXTREMITIES: no edema. lacks full extension in the left elbow NEUROLOGIC: Left cranial nerve VII palsy. 5/5 motor in her right upper and lower extremity with normal sensation. Left UE motor 0/5 throughout. LLE motor showed 2/5 knee ext and hip extension, trace ankle PF. Sensation impaired on left side. Assessment/Plan: 1. Intracranial hemorrhage. Will need repeat MRI of her brain in 1 to 2 months ; follow up with Neurology. 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 2. F/E/N: Mechanical soft diet and thin liquids per speech.. On MgOx 400mg daily and KCL 20mEq daily. 3. 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 If contracture progresses may need x-ray and consult with ortho regarding possible splinting. 4. Hypertension. Continue with Norvasc. 5. Advanced Directives: She is a full code. Her son, Jt, is her surrogate decision maker. 6. DVT Prophylaxis: TEDs. Blood thinners contraindicated due to ICH 7. Estimated LOS: anticipate d/c around 05/06/18. 03/30/18 20:32
[2018-03-31] MEDS: Heparin VIAL(*) 5000 UNITS/ML VIAL (FIVE THOUSAND) SUBCUT SCH ×3 (06:07→22:01)
[2018-03-31] MEDS: [UNRECOGNIZED DRUG - OTHER] PO SCH (09:38)
[2018-03-31] MEDS: Calcium Carbonate TAB* 1250 MG (CALCIUM 500 MG) PO PRN (09:39)
[2018-03-31] MEDS: Polyethylene Glycol 3350* 17 GM PACKET PO SCH (09:39)
[2018-03-31] MEDS: [UNRECOGNIZED DRUG - OTHER] PO SCH (09:41)
[2018-03-31] MEDS: Magnesium Oxide TAB* 400 MG PO SCH (09:41)
[2018-03-31] MEDS: amLODIPine TAB* 5 MG PO SCH (09:41)
[2018-03-31] MEDS: Docusate CAP* 100 MG PO SCH ×2 (09:41→19:50)
[2018-03-31] MEDS: [UNRECOGNIZED DRUG - OTHER] PO SCH ×2 (09:41→19:50)
[2018-03-31] MEDS: Potassium Chlor TAB* 20 MEQ TAB.ER PO SCH (09:43)
--- NOTE | 2018-03-31 17:58 | PN ---
Progress Note Date of Service: 03/31/18 Note: VERÓNICA DEGROOT was visited. Therapy notes read and reviewed. Was not able to stand with therapy but sitting balance better Current Medications: Active Medications Generic Name Dose Route Start Last Admin Trade Name Freq PRN Reason Stop Dose Admin Acetaminophen 650 mg 03/21/18 11:15 Tylenol Tab* PO Q4H PRN FEVER > 101 Al Hydrox/Mg Hydrox/Simethicone 30 ml 03/21/18 11:15 Maalox Plus* PO Q6H PRN INDIGESTION Amlodipine Besylate 5 mg 03/22/18 09:00 03/31/18 09:41 Norvasc Tab* PO 5 mg DAILY TIMA Administration Bisacodyl 10 mg 03/21/18 11:49 Dulcolax Supp* [place] DAILY PRN CONSTIPATION Calcium Carbonate 1,250 mg 03/21/18 11:52 03/31/18 09:39 Calcium Carbonate Tab* PO 1,250 mg BID PRN Administration indigestion Docusate Sodium 200 mg 03/21/18 21:00 03/31/18 09:41 Colace Cap* PO 200 mg BID TIMA Administration Heparin Sodium (Porcine) 5,000 units 03/21/18 14:00 03/31/18 14:18 Heparin Vial(*) SUBCUT 5,000 units Q8HR TIMA Administration Magnesium Oxide 400 mg 03/27/18 09:00 03/31/18 09:41 Magox 400 Tab* PO 400 mg DAILY TIMA Administration Pto:(Coromega [place]- 1 packet 03/22/18 09:00 03/31/18 09:41 3 1 Packet) PO 1 packet QAM TIMA Administration (Echinacea Goldseal 1 cap 03/27/18 09:00 03/31/18 09:41 1 Cap) PO 1 cap BID TIMA Administration Pto: (Advanced 2 cap 03/27/18 09:00 03/31/18 09:38 Acidophilus Cap) PO 2 cap DAILY TIMA Administration Polyethylene Glycol/Electrolytes 17 gm 03/22/18 09:00 03/31/18 09:39 Miralax* PO 17 gm DAILY TIMA Administration Potassium Chloride 20 meq 03/27/18 09:00 03/31/18 09:43 Klor Con Er Tab* PO 20 meq DAILY TIMA Administration Senna 2 tab 03/21/18 11:15 Senokot Tab* PO BEDTIME PRN CONSTIPATION Vital Signs: Vital Signs Temp Pulse Resp BP Pulse Ox 98.3 F 84 18 115/78 97 03/31/18 16:12 03/31/18 16:12 03/31/18 16:12 03/31/18 16:12 03/31/18 16:12 Exam: GENERAL: no acute distress. alert and appropriate. LUNGS: clear to auscultation bilaterally. HEART: regular rate and rhythm ABDOMEN: + bowel sounds, soft, non-tender, non-distended EXTREMITIES: no edema. lacks full extension in the left elbow NEUROLOGIC: Left cranial nerve VII palsy. 5/5 motor in her right upper and lower extremity with normal sensation. Left UE motor 0/5 throughout. LLE motor showed 2/5 knee ext and hip extension, trace ankle PF. Sensation impaired on left side. Assessment/Plan: 1. Intracranial hemorrhage. Will need repeat MRI of her brain in 1 to 2 months ; follow up with Neurology. 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 2. F/E/N: Mechanical soft diet and thin liquids per speech.. On MgOx 400mg daily and KCL 20mEq daily. 3. 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 If contracture progresses may need x-ray and consult with ortho regarding possible splinting. 4. Hypertension. Continue with Norvasc. 5. Advanced Directives: She is a full code. Her son, Jt, is her surrogate decision maker. 6. DVT Prophylaxis: TEDs. Blood thinners contraindicated due to ICH 7. Estimated LOS: anticipate d/c around 05/06/18. 03/31/18 17:59
[2018-04-01] MEDS: Heparin VIAL(*) 5000 UNITS/ML VIAL (FIVE THOUSAND) SUBCUT SCH ×3 (05:22→21:27)
[2018-04-01] MEDS: Polyethylene Glycol 3350* 17 GM PACKET PO SCH (09:11)
[2018-04-01] MEDS: Calcium Carbonate TAB* 1250 MG (CALCIUM 500 MG) PO PRN (09:13)
[2018-04-01] MEDS: Docusate CAP* 100 MG PO SCH ×2 (09:13→20:01)
[2018-04-01] MEDS: Potassium Chlor TAB* 20 MEQ TAB.ER PO SCH (09:13)
[2018-04-01] MEDS: amLODIPine TAB* 5 MG PO SCH (09:13)
[2018-04-01] MEDS: Magnesium Oxide TAB* 400 MG PO SCH (09:13)
[2018-04-01] MEDS: [UNRECOGNIZED DRUG - OTHER] PO SCH (09:14)
[2018-04-01] MEDS: [UNRECOGNIZED DRUG - OTHER] PO SCH ×2 (09:14→20:03)
[2018-04-01] MEDS: [UNRECOGNIZED DRUG - OTHER] PO SCH (09:17)
--- NOTE | 2018-04-01 12:45 | PMRUTEAM ---
PMRU: Team Meeting Current Status: Nursing: Current Status Skin Deviations [Coccyx] Pressure Ulcer Skin Deviations [Right Groin] Previous Access Point Skin Deviation Description [ nothing noted Coccyx] Skin Deviation Description [ healed Right Groin] Bladder Current Status voiding Bowel Current Status bowel meds continue, pt did decline miralax Nutrition Current Status eating well, needs containers open Medication Current Status medications reviewed, pt very aware of regime Physical Therapy: Current Status Bed Mobility Assistance Not Tested Transfer Moblility Assistance Not Tested Transfer/Bed Mobility Lisa Lift Recommended Devices Ambulation Assistance Unable Occupational Therapy: Current Status Upper Body Dressing Min Assist Lower Body Dressing Total Assist Lower Body Dressing Progress rolling in bed or standing at bedrail Bathing Max Asst Bathing Progress in shower w/c today Toileting Total Assist Toileting Progress rolling in bed or standing at bedrail Toilet Transfer Total Assist,2 Person Assist Toilet Transfer Progress 2 max A to stand at bedrail and swap out Shower Transfer Total Assist Shower Transfer Progress lisa to shower w/c Eating Supervision Eating Progress set up Rec Therapy: Current Status Summary of Assessment and RT assessment complete and pt. is aware of Clinical Impression services. Pt. has been open to visits and has access to her leisure interests when she is wants them. Pt. tends to have visitors in the afternoons. Treatment Goals Patient will engage in recreation and leisure activities while on the unit. Treatment Plan Provide and encourage involvement in RT services. Social Work: Current Status Discharge Plan return home with home care svs and family support Potential for Family Training pt's family and friends are involved and supportive Anticipated Discharge Home Destination Discharge With home care svs and family support Nutrition: Current Status Monitoring eating well w/heart healthy diet (caffeine ok); mech soft textures tolerated. Eating 80-100% of meals. Cont w/left-sided weakness. Measure in place to maintain skin integrity; calorie/prot/ fluids need estimated, and she appears to be meeting thee needs so far. Daily magnesium supplementation; serum mag 1.6 one week ago. Speech: Current Status Assessment Patient is progressing as expected. Patient read using her finger without repeating or skipping lines, and explained the meaning of each paragraph, 100% I'ly. Speech articulation is 100% intelligible, and spontaneous facial expression 30% symmetrical. Speech Current Status Goal 1 Mild-moderate impairment Speech Goal 2 Current Status Moderate impairment Speech Goal 3 Current Status Moderate impairment Goals: Physical Therapy: Initial Goals Bed Mobility Assistance Independent Transfer Mobility Assistance Independent Transfer/Bed Mobility Manoj Walker Recommended Devices Ambulation Independent Ambulation Recommended Devices Manoj Walker Ambulation Distance 50 Wheelchair Propulsion Ability Independent Stairs Assistance Independent Stair Recommended Devices One Rail Number of Stairs 5 Physical Therapy: Updated Goals Transfer/Bed Mobility Lisa Lift Recommended Devices Occupational Therapy: Initial Goals Goals to be Completed in (Days 4-6 weeks ) Upper Body Bathing Routine Modified Independent with Lower Body Bathing Routine Modified Independent with Upper Body Dressing Routine Modified Independent with Lower Body Dressing Routine Modified Independent with Toilet Hygeine and Clothing Modified Independent with Management Routine Toilet Transfer Routine Modified Independent with Tub Transfer Routine Supervision/Set Up Functional Transfers for ADL Modified Independent with Grooming Routine Modified Independent with Feeding Routine Modified Independent with Nursing: Goals Bladder Goal indep Bowel Goal indep Nutrition Goal indep Medication Goal indep Nutrition: Goals Intervention Goals 1. Pt will tolerate least-restrictive diet texture without s/sx difficulty chewing 2. Intake will remain >75% of meals 3. Intake will be adequate to maintain stable wt Speech: Goals Speech Goal 1 Comprehension Speech Evaluation Status Goal Mild-moderate impairment 1 Speech Current Status Goal 1 Mild-moderate impairment Goal 1 Comments Long-Term Goal: Pt will use compensatory strategies to demonstrate comprehension of paragraph length verbal and written information of moderate complexity, 100% accuracy, given minimal extra time, Independently. Short-Term Goal: Pt will use compensatory strategies to attend to information in the Left visual field and demonstrate comprehension of paragraph length verbal and written information of moderate complexity, 90% accuracy, given moderate extra time, and Moderate skilled instruction and cueing. Status: Met; revised to 95%, using compensatory strategies, Independently Patient located an article in an health encyclopedia and read narrow columns,and patient read short paragraphs illustating Figurative Language. MIRROR FRAMER directed patient to read without using a card to keep track of lines, and patient read using her finger without repeating or skipping lines, and explaned the meaning of each, 100% I'ly. Goal will be met when patient demonstrates the ability to read a full page of text without a guide card and summarizes paragraphs accurately. Speech Goal 2 Problem Solving Speech Goal 2 Evaluation Moderate impairment Status Speech Goal 2 Current Status Moderate impairment Speech Goal 2 Comments Long-Term Goal: Patient will use compensatory strategies to solve moderately complex routine problems, with 100% accuracy, Independently, for ADLs such as shopping, time and money management. Short-Term Goal: Patient will use compensatory strategies to attend to information in the Left visual field to solve moderately complex problems, with 80% accuracy, given Moderate skilled instruction and cueing. Status: Progressing as expected. Patient read short paragraphs illustating Figurative Language, and accurately defined the meaning of 5 figures of speech. Speech Goal 3 Motor speech Speech Goal 3 Evaluation Moderate impairment Status Speech Goal 3 Current Status Moderate impairment Speech Goal 3 Comments [employer] Operator Goal: Patient will demonstrate improvement in range and rate of motion of her Left side labial retractors, elevators and depressors, to 90% of Right side, to achieve functional ability to eat and drink without spillage, speak with minimal distortion, and make appropriate facial expressions. Short Term Goal: Patient will demonstrate improvement in range and rate of motion of her Left side labial retractors, elevators and depressors, to 90% of Right side, achieve functional ability to eat and drink without spillage, speak with minimal distortion, and make appropriate facial expressions, given Minimal cueing. Status: Progressing as expected Speech articulation is 100% intelligible, and spontaneous facial expression 30% symmetrical. MIRROR FRAMER provided verbal and visual instruction in isolated facial muslce exercises with maximal cueing. Spontaneous lip retraction of Left side was 20% of right side in isolation, and patient increased to 30%. Bilateral lip elevation was reduced on right and absent on Left; nasal elevation was normal and symmetrical. Left side labial depression was 505 of right side. Social Work: Goals Discharge Plan return home with home care svs and family support Potential for Family Training pt's family and friends are involved and supportive Anticipated Discharge Home Destination Discharge With home care svs and family support Care Plan: Care Plan ADL's - Improve/Maintain Start: 03/23/18 00:21 Freq: DAILY Status: Active Target: Protocol: Activity Type Activity Date Activity User E-Sign Co-Sign Detail Recorded Client Recorded Date Recorded By Document 04/01/18 10:21 [id number] 04/01/18 10:21 [id number] 04/01/18 10:21 PMRU Outcome: ADL's/ADL Transfers Orders/Interventions Occupational Therapy Evaluation & Treatment Communication Tool in Patient Room Patient to receive OT 5x/wk for 60-120 Therex min/day Self Care Management Group Therapy Neuromuscular ReEducation UE/LE ADL's with Assist Yes: mod I ADL Transfers with Assist Yes: mod I Toileting: Transfers,Clothing Management Yes: mod I ,Hygeine w/Assist Progression Toward Outcome/Goals Progressing Outcome/Goals Met Pt able to complete sit to stand from BSC with min-modA x 1 and maintain standing during swap out back to chair with decreased left lateral leaning . Overall decreased left lateral lean noted in sitting and standing with hemisling donned this date. Communication-Improve/Maintain Start: 03/23/18 00:21 Freq: DAILY Status: Active Target: Protocol: Activity Type Activity Date Activity User E-Sign Co-Sign Detail Recorded Client Recorded Date Recorded By Document 04/01/18 11:43 [id number] 04/01/18 11:44 [id number] 04/01/18 11:43 PMRU Outcome: Communication/Cognitive Status Outcome/Goals Makes Needs Known Effectively Other Outcomes/Goals Comprehension Long-Term Goal: Pt will use compensatory strategies to demonstrate comprehension of paragraph length verbal and written information of moderate complexity, 100 % accuracy, given minimal extra time, Independently. Short-Term Goal : Pt will use compensatory strategies to attend to information in the Left visual field and demonstrate comprehension of paragraph length verbal and written information of moderate complexity, 95% accuracy, using compensatory strategies, Independently Status: Revised goal, see below. Problem Solving Long-Term Goal: Patient will use compensatory strategies to solve moderately complex routine problems, with 100% accuracy, Independently, for ADLs such as shopping, time and money management. Short-Term Goal : Patient will use compensatory strategies to attend to information in the Left visual field to solve moderately complex problems, with 80% accuracy, given Moderate skilled instruction and cueing. Status: Progressing as expected. Motor Speech Mcc Goal: Patient will demonstrate improvement in range and rate of motion of her Left side labial retractors, elevators and depressors, to 90% of Right side, to achieve functional ability to eat and drink without spillage, speak with minimal distortion, and make appropriate facial expressions. Short Term Goal : Patient will demonstrate improvement in range and rate of motion of her Left side labial retractors, elevators and depressors, to 90% of Right side, achieve functional ability to eat and drink without spillage, speak with minimal distortion, and make appropriate facial expressions, given Minimal cueing. Status: Progressing as expected Progression Toward Outcomes/Goals Progressing Outcome/Goals Met Comment Patient is progressing as expected. Patient read using her finger without repeating or skipping lines, and explained the meaning of each paragraph, 100% I'ly. Speech articulation is 100% intelligible, and spontaneous facial expression 30% symmetrical. Discharge Planning - Improve/Maintain Start: 03/23/18 00:21 Freq: DAILY Status: Active Target: Protocol: Activity Type Activity Date Activity User E-Sign Co-Sign Detail Recorded Client Recorded Date Recorded By Document 04/01/18 01:58 [id number] [id number] 04/01/18 02:00 [id number] 04/01/18 01:58 PMRU Outcome: Discharge Planning Update Patient Family No Outcome/Goals Demonstrates Understanding of Discharge Plan Progression Toward Outcome/Goals Progressing Education-Improve/Maintain Start: 03/23/18 00:21 Freq: QSHIFT Status: Active Target: Protocol: Activity Type Activity Date Activity User E-Sign Co-Sign Detail Recorded Client Recorded Date Recorded By Document 04/01/18 01:58 [id number] [id number] 04/01/18 02:00 [id number] 04/01/18 01:58 PMRU Outcome: Education Outcome/Goals Demonstrate/ Verbalize Understanding of Written Discharge Instructions Demonstrates Skills Encourage Questions Progression Toward Outcome/Goals Progressing /GI-Improve/Maintain Start: 03/23/18 00:21 Freq: QSHIFT Status: Active Target: Protocol: Activity Type Activity Date Activity User E-Sign Co-Sign Detail Recorded Client Recorded Date Recorded By Document 04/01/18 01:58 [id number] 04/01/18 02:00 [id number] 04/01/18 01:58 PMRU Outcome: Genitourinary/ Gastrointestinal Genitourinary- Outcome/Goals Maintain/ Achieve Urinary Continence Gastrointestinal-Outcome/Goals Maintain/ Achieve Bowel Regularity in Accordance with Pt's Baseline Prevent Constipation Progression Toward Outcome/Goals - Progressing Progression Toward Outcome/Goals - GI Progressing Outcome/Goals Met Comment pt used bedpan Mobility- Improve/Maintain Start: 03/21/18 17:34 Freq: DAILY Status: Active Target: Protocol: Activity Type Activity Date Activity User E-Sign Co-Sign Detail Recorded Client Recorded Date Recorded By Document 03/26/18 16:51 [id number] 03/26/18 16:51 [id number] 03/26/18 16:51 PMRU Outcome: Mobility Physical Therapy Evaluation and Yes Treatment Activity OOB with Assistance Yes WBAT Yes Device Yes Assistance Yes Patient to be seen 5x/wk for 60-120 min/ Therex day for: Mobility Training Gait Training W/C Mobility Balance Outcome/Goals Maintain/ Achieve Baseline Mobility Status Improve Mobility Status Demonstrates Proper Use of Assistive Devices Free from Complications of Immobility Progression Toward Outcome/Goals Progressing Outcome/Goals Met Comment improved ability to extend LLE against gravity Bed Mobility Yes: independnet Transfers Yes: independent with manoj walker Gait x ft Yes: independent with hemiwalker 50' W/C Mobility x ft Yes: independent with RU/LE 300' Up/Down Stairs Yes: inddependent up /down 5 stairs. Neurological- Improve/Maintain Start: 03/23/18 00:21 Freq: QSHIFT Status: Active Target: Protocol: Activity Type Activity Date Activity User E-Sign Co-Sign Detail Recorded Client Recorded Date Recorded By Document 04/01/18 01:58 [id number] 04/01/18 02:00 [id number] 04/01/18 01:58 PMRU Outcome: Neurological Weakness/Aphasia Weakness Left Side Outcome/Goals Maintain/ Achieve Baseline Neurological Status Maintain/ Improve Strength/ROM Progression Toward Outcome/Goals Progressing Pain/Comfort- Improve/Maintain Start: 03/23/18 00:21 Freq: QSHIFT Status: Active Target: Protocol: Activity Type Activity Date Activity User E-Sign Co-Sign Detail Recorded Client Recorded Date Recorded By Document 04/01/18 01:58 [id number] 04/01/18 02:00 [id number] 04/01/18 01:58 PMRU Outcome: Pain/Comfort Outcome/Goals Demonstrates Knowledge and Use of Available Comfort Measures Achieves Acceptable Comfort/Pain Level as Determined by Patient/Condit Maintain Comfort Level Allowing Patient to Fully Participate in Rehab Progression Toward Outcome/Goals Progressing Outcome/Goals Met Comment pt denies pain Safety- Improve/Maintain Start: 03/23/18 00:21 Freq: QSHIFT Status: Active Target: Protocol: Activity Type Activity Date Activity User E-Sign Co-Sign Detail Recorded Client Recorded Date Recorded By Document 04/01/18 01:58 [id number] 04/01/18 02:00 [id number] 04/01/18 01:58 PMRU Outcome: Safety Outcome/Goals Remain Free of Injury or Harm Cooperates with Safety Measures for Least Restrictive Environment Prevent Falls/ Injury Progression Toward Outcome/Goals Progressing Outcome/Goals Met Comment PA in place Skin- Improve/Maintain Start: 03/23/18 00:21 Freq: QSHIFT Status: Active Target: Protocol: Activity Type Activity Date Activity User E-Sign Co-Sign Detail Recorded Client Recorded Date Recorded By Document 04/01/18 01:58 [id number] 04/01/18 02:00 [id number] 04/01/18 01:58 PMRU Outcome: Skin Skin Risk Level Medium Skin Orders Multipodus Boot Turn/Position q2hr While in Bed Outcome/Goals Maintain/ Improve Skin Intergrity Progression Toward Outcome/Goals Progressing Outcome/Goals Met Comment pillows in place Medicine Note: Length of Stay: 4 weeks Anticipated Discharge Destination: Home Tentative Discharge Date: 05/06/18 Discharged to: home
--- NOTE | 2018-04-01 17:36 | PN ---
Progress Note Date of Service: 04/01/18 Note: VERÓNICA DEGROOT was visited. Therapy notes read and reviewed. She was discussed in interdisciplinary team rounds. She continues to make slow progress but still requires a lot of assistance. Current Medications: Active Medications Generic Name Dose Route Start Last Admin Trade Name Freq PRN Reason Stop Dose Admin Acetaminophen 650 mg 03/21/18 11:15 Tylenol Tab* PO Q4H PRN FEVER > 101 Al Hydrox/Mg Hydrox/Simethicone 30 ml 03/21/18 11:15 Maalox Plus* PO Q6H PRN INDIGESTION Amlodipine Besylate 5 mg 03/22/18 09:00 04/01/18 09:13 Norvasc Tab* PO 5 mg DAILY TIMA Administration Bisacodyl 10 mg 03/21/18 11:49 Dulcolax Supp* MA DAILY PRN CONSTIPATION Calcium Carbonate 1,250 mg 03/21/18 11:52 04/01/18 09:13 Calcium Carbonate Tab* PO 1,250 mg BID PRN Administration indigestion Docusate Sodium 200 mg 03/21/18 21:00 04/01/18 09:13 Colace Cap* PO 200 mg BID TIMA Administration Heparin Sodium (Porcine) 5,000 units 03/21/18 14:00 04/01/18 14:07 Heparin Vial(*) SUBCUT 5,000 units Q8HR TIMA Administration Magnesium Oxide 400 mg 03/27/18 09:00 04/01/18 09:13 Magox 400 Tab* PO 400 mg DAILY TIMA Administration Pto:(Coromega [place]- 1 packet 03/22/18 09:00 04/01/18 09:17 3 1 Packet) PO 1 packet QAM TIMA Administration (Echinacea Goldseal 1 cap 03/27/18 09:00 04/01/18 09:14 1 Cap) PO 1 cap BID TIMA Administration Pto: (Advanced 2 cap 03/27/18 09:00 04/01/18 09:14 Acidophilus Cap) PO 2 cap DAILY TIMA Administration Polyethylene Glycol/Electrolytes 17 gm 03/22/18 09:00 04/01/18 09:11 Miralax* PO 17 gm DAILY TIMA Administration Potassium Chloride 20 meq 03/27/18 09:00 04/01/18 09:13 Klor Con Er Tab* PO 20 meq DAILY TIMA Administration Senna 2 tab 03/21/18 11:15 Senokot Tab* PO BEDTIME PRN CONSTIPATION Vital Signs: Vital Signs Temp Pulse Resp BP Pulse Ox 98.3 F 83 16 114/67 99 04/01/18 16:30 04/01/18 16:30 04/01/18 16:30 04/01/18 16:30 04/01/18 17:06 Exam: GENERAL: no acute distress. alert and appropriate. LUNGS: clear to auscultation bilaterally. HEART: regular rate and rhythm ABDOMEN: + bowel sounds, soft, non-tender, non-distended EXTREMITIES: no edema. lacks full extension in the left elbow NEUROLOGIC: Left cranial nerve VII palsy. 5/5 motor in her right upper and lower extremity with normal sensation. Left UE 2/5 shoulder adduction. LLE motor showed 2/5 knee ext and hip extension, trace ankle PF. Sensation impaired on left side. Assessment/Plan: 1. Intracranial hemorrhage. Will need repeat MRI of her brain in 1 to 2 months ; follow up with Neurology. 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 2. F/E/N: Mechanical soft diet and thin liquids per speech.. On MgOx 400mg daily and KCL 20mEq daily. 3. 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 If contracture progresses may need x-ray and consult with ortho regarding possible splinting. 4. Hypertension. Continue with Norvasc. 5. Advanced Directives: She is a full code. Her son, Jt, is her surrogate decision maker. 6. DVT Prophylaxis: TEDs. Blood thinners contraindicated due to ICH 7. Estimated LOS: anticipate d/c around 05/06/18. 04/01/18 17:37
[2018-04-02] MEDS: Heparin VIAL(*) 5000 UNITS/ML VIAL (FIVE THOUSAND) SUBCUT SCH ×3 (05:11→21:05)
[2018-04-02 05:57] LABS: Hematocrit 39 % (35-47); Hemoglobin 13.8 g/dl (12.0-16.0); Mean Corpuscular HGB Conc 35 g/dl (31-36); Mean Corpuscular Hemoglobin 36 pg (27-31); Mean Corpuscular Volume 102 fL (80-97); Mean Platelet Volume 7.5 um3 (7.4-10.4); Platelet Count 416 10^3/ul (150-450); Red Blood Count 3.85 10^6/ul (4.00-5.40); Red Cell Distribution Width 13 % (10.5-15); White Blood Count 8.1 10^3/ul (3.5-10.8)
[2018-04-02 06:00] LABS: ABS Basophils 0.1 10^3/ul (0-0.2); ABS Eosinophils 0.2 10^3/ul (0-0.6); ABS Lymphocytes 1.8 10^3/ul (1.0-4.8); ABS Monocytes 0.9 10^3/ul (0-0.8); ABS Neutrophils 5.1 10^3/ul (1.5-7.7); ABS Nucleated RBC 0 10^3/ul
[2018-04-02 06:33] LABS: ABS Basophils 0.1 10^3/ul (0-0.2); ABS Neutrophils 4.1 10^3/ul (1.5-7.7); Monocytes % 9 % (0-7)
[2018-04-02] MEDS: Polyethylene Glycol 3350* 17 GM PACKET PO SCH (08:55)
[2018-04-02] MEDS: [UNRECOGNIZED DRUG - OTHER] PO SCH (08:55)
[2018-04-02] MEDS: [UNRECOGNIZED DRUG - OTHER] PO SCH ×2 (08:57→21:01)
[2018-04-02] MEDS: Docusate CAP* 100 MG PO SCH ×2 (08:58→21:06)
[2018-04-02] MEDS: [UNRECOGNIZED DRUG - OTHER] PO SCH (08:58)
[2018-04-02] MEDS: Magnesium Oxide TAB* 400 MG PO SCH ×2 (08:59→21:02)
[2018-04-02] MEDS: Potassium Chlor TAB* 20 MEQ TAB.ER PO SCH (08:59)
[2018-04-02] MEDS: amLODIPine TAB* 5 MG PO SCH (08:59)
--- NOTE | 2018-04-02 20:32 | PN ---
Progress Note Date of Service: 04/02/18 Note: VERÓNICA DEGROOT was visited. Therapy notes read and reviewed. Current Medications: Active Medications Generic Name Dose Route Start Last Admin Trade Name Freq PRN Reason Stop Dose Admin Acetaminophen 650 mg 03/21/18 11:15 Tylenol Tab* PO Q4H PRN FEVER > 101 Al Hydrox/Mg Hydrox/Simethicone 30 ml 03/21/18 11:15 Maalox Plus* PO Q6H PRN INDIGESTION Amlodipine Besylate 5 mg 03/22/18 09:00 04/02/18 08:59 Norvasc Tab* PO 5 mg DAILY TIMA Administration Bisacodyl 10 mg 03/21/18 11:49 Dulcolax Supp* MS DAILY PRN CONSTIPATION Calcium Carbonate 1,250 mg 03/21/18 11:52 04/01/18 09:13 Calcium Carbonate Tab* PO 1,250 mg BID PRN Administration indigestion Docusate Sodium 200 mg 03/21/18 21:00 04/02/18 08:58 Colace Cap* PO 200 mg BID TIMA Administration Heparin Sodium (Porcine) 5,000 units 03/21/18 14:00 04/02/18 14:28 Heparin Vial(*) SUBCUT 5,000 units Q8HR TIMA Administration Magnesium Oxide 400 mg 03/27/18 09:00 04/02/18 08:59 Magox 400 Tab* PO 400 mg DAILY TIMA Administration Pto:(Coromega [place]- 1 packet 03/22/18 09:00 04/02/18 08:58 3 1 Packet) PO 1 packet QAM TIMA Administration (Echinacea Goldseal 1 cap 03/27/18 09:00 04/02/18 08:57 1 Cap) PO 1 cap BID TIMA Administration Pto: (Advanced 2 cap 03/27/18 09:00 04/02/18 08:55 Acidophilus Cap) PO 2 cap DAILY TIMA Administration Polyethylene Glycol/Electrolytes 17 gm 03/22/18 09:00 04/02/18 08:55 Miralax* PO Not Given DAILY TIMA Potassium Chloride 20 meq 03/27/18 09:00 04/02/18 08:59 Klor Con Er Tab* PO 20 meq DAILY TIMA Administration Senna 2 tab 03/21/18 11:15 Senokot Tab* PO BEDTIME PRN CONSTIPATION Vital Signs: Vital Signs Temp Pulse Resp BP Pulse Ox 98.1 F 79 18 105/73 94 04/02/18 15:42 04/02/18 15:42 04/02/18 15:42 04/02/18 15:42 04/02/18 17:53 Lab Results: Laboratory Results - last 24 hr 04/02/18 04/02/18 05:37 05:37 WBC 8.1 RBC 3.85 L Hgb 13.8 Hct 39 MCV 102 H MCH 36 H MCHC 35 RDW 13 Plt Count 416 MPV 7.5 Neut % (Auto) Not Reportable Lymph % (Auto) Not Reportable [place] % (Auto) Not Reportable Eos % (Auto) Not Reportable Baso % (Auto) Not Reportable Absolute Neuts (auto) 5.1 Absolute Lymphs (auto) 1.8 Absolute Monos (auto) 0.9 H Absolute Eos (auto) 0.2 Absolute Basos (auto) 0.1 Absolute Nucleated RBC 0 Immature Gran % 1 Neutrophils % 51 Band Neutrophils % 1 Lymphocytes % 36 Monocytes % 9 H Eosinophils % 2 Basophils % 1 Nucleated RBC % Not Reportable Abs Neuts (Manual) 4.1 Abs Lymphs (Manual) 2.9 Abs Monocytes (Manual) 0.7 Absolute Eos (Manual) 0.2 Abs Basophils (Manual) 0.1 Normal RBC Morphology Normal Hem Pathologist Commnt Sodium 136 Potassium 4.2 Chloride 101 Carbon Dioxide 27 Anion Gap 8 BUN 8 Creatinine 0.60 Est GFR ( Amer) 122.2 Est GFR (Non-Af Amer) 101.0 BUN/Creatinine Ratio 13.3 Glucose 102 H Calcium 9.9 Magnesium 1.4 L Total Bilirubin 0.30 AST 17 ALT 25 Alkaline Phosphatase 39 Total Protein 6.6 Albumin 3.7 Globulin 2.9 Albumin/Globulin Ratio 1.3 Exam: GENERAL: no acute distress. alert and appropriate. LUNGS: clear to auscultation bilaterally. HEART: regular rate and rhythm ABDOMEN: + bowel sounds, soft, non-tender, non-distended EXTREMITIES: no edema. lacks full extension in the left elbow NEUROLOGIC: Left cranial nerve VII palsy. 5/5 motor in her right upper and lower extremity with normal sensation. Left UE 2/5 shoulder adduction. LLE motor showed 2/5 knee ext and hip extension, trace ankle PF. Sensation impaired on left side. Assessment/Plan: 1. Intracranial hemorrhage. Will need repeat MRI of her brain in 1 to 2 months ; follow up with Neurology. 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 2. F/E/N: Mechanical soft diet and thin liquids per speech.. On MgOx 400mg daily and KCL 20mEq daily. Mg still low. Will increase MagOx to BID 3. 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 If contracture progresses may need x-ray and consult with ortho regarding possible splinting. 4. Hypertension. Continue with Norvasc. 5. Advanced Directives: She is a full code. Her son, Jt, is her surrogate decision maker. 6. DVT Prophylaxis: TEDs. Blood thinners contraindicated due to ICH 7. Estimated LOS: anticipate d/c around 05/06/18. 04/02/18 20:33
[2018-04-03] MEDS: Heparin VIAL(*) 5000 UNITS/ML VIAL (FIVE THOUSAND) SUBCUT SCH ×3 (06:08→21:58)
[2018-04-03] MEDS: [UNRECOGNIZED DRUG - OTHER] PO SCH (08:27)
[2018-04-03] MEDS: [UNRECOGNIZED DRUG - OTHER] PO SCH (08:27)
[2018-04-03] MEDS: [UNRECOGNIZED DRUG - OTHER] PO SCH ×2 (08:27→21:57)
[2018-04-03] MEDS: Magnesium Oxide TAB* 400 MG PO SCH ×2 (08:28→21:55)
[2018-04-03] MEDS: amLODIPine TAB* 5 MG PO SCH (08:28)
[2018-04-03] MEDS: Docusate CAP* 100 MG PO SCH ×2 (08:28→22:02)
[2018-04-03] MEDS: Potassium Chlor TAB* 20 MEQ TAB.ER PO SCH (08:28)
[2018-04-03] MEDS: Polyethylene Glycol 3350* 17 GM PACKET PO SCH (08:30)
--- NOTE | 2018-04-03 19:05 | PN ---
Progress Note Date of Service: 04/03/18 Note: VERÓNICA DEGROOT was visited. Therapy notes read and reviewed. I observed her in OT. Played a board game sitting up unsupported and did well Current Medications: Active Medications Generic Name Dose Route Start Last Admin Trade Name Freq PRN Reason Stop Dose Admin Acetaminophen 650 mg 03/21/18 11:15 Tylenol Tab* PO Q4H PRN FEVER > 101 Al Hydrox/Mg Hydrox/Simethicone 30 ml 03/21/18 11:15 Maalox Plus* PO Q6H PRN INDIGESTION Amlodipine Besylate 5 mg 03/22/18 09:00 04/03/18 08:28 Norvasc Tab* PO 5 mg DAILY TIMA Administration Bisacodyl 10 mg 03/21/18 11:49 Dulcolax Supp* [place] DAILY PRN CONSTIPATION Calcium Carbonate 1,250 mg 03/21/18 11:52 04/01/18 09:13 Calcium Carbonate Tab* PO 1,250 mg BID PRN Administration indigestion Docusate Sodium 200 mg 03/21/18 21:00 04/03/18 08:28 Colace Cap* PO 200 mg BID TIMA Administration Heparin Sodium (Porcine) 5,000 units 03/21/18 14:00 04/03/18 14:10 Heparin Vial(*) SUBCUT 5,000 units Q8HR TIMA Administration Magnesium Oxide 400 mg 04/02/18 21:00 04/03/18 08:28 Magox 400 Tab* PO 400 mg BID TIMA Administration Pto:(Coromega [place]- 1 packet 03/22/18 09:00 04/03/18 08:27 3 1 Packet) PO 1 packet QAM TIMA Administration (Echinacea Goldseal 1 cap 03/27/18 09:00 04/03/18 08:27 1 Cap) PO 1 cap BID TIMA Administration Pto: (Advanced 2 cap 03/27/18 09:00 04/03/18 08:27 Acidophilus Cap) PO 2 cap DAILY TIMA Administration Polyethylene Glycol/Electrolytes 17 gm 03/22/18 09:00 04/03/18 08:30 Miralax* PO Not Given DAILY TIMA Potassium Chloride 20 meq 03/27/18 09:00 04/03/18 08:28 Klor Con Er Tab* PO 20 meq DAILY TIMA Administration Senna 2 tab 03/21/18 11:15 Senokot Tab* PO BEDTIME PRN CONSTIPATION Vital Signs: Vital Signs Temp Pulse Resp BP Pulse Ox 98.1 F 83 20 108/85 100 04/03/18 15:41 04/03/18 15:41 04/03/18 15:41 04/03/18 15:41 04/03/18 15:41 Exam: GENERAL: no acute distress. alert and appropriate. LUNGS: clear to auscultation bilaterally. HEART: regular rate and rhythm ABDOMEN: + bowel sounds, soft, non-tender, non-distended EXTREMITIES: no edema. lacks full extension in the left elbow NEUROLOGIC: Left cranial nerve VII palsy. 5/5 motor in her right upper and lower extremity with normal sensation. Left UE 2/5 shoulder adduction. LLE motor showed 2/5 knee ext and hip extension, trace ankle PF. Sensation impaired on left side. Assessment/Plan: 1. Intracranial hemorrhage. Will need repeat MRI of her brain in 1 to 2 months ; follow up with Neurology. 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 2. F/E/N: Mechanical soft diet and thin liquids per speech.. On MgOx 400mg BID and KCL 20mEq daily. 3. 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 If contracture progresses may need x-ray and consult with ortho regarding possible splinting. 4. Hypertension. Continue with Norvasc. 5. Advanced Directives: She is a full code. Her son, Jt, is her surrogate decision maker. 6. DVT Prophylaxis: TEDs. Blood thinners contraindicated due to ICH 7. Estimated LOS: anticipate d/c around 05/06/18. 04/03/18 19:05
[2018-04-04] MEDS: Heparin VIAL(*) 5000 UNITS/ML VIAL (FIVE THOUSAND) SUBCUT SCH ×3 (06:06→22:12)
[2018-04-04] MEDS: Potassium Chlor TAB* 20 MEQ TAB.ER PO SCH (07:45)
[2018-04-04] MEDS: [UNRECOGNIZED DRUG - OTHER] PO SCH ×2 (07:46→20:28)
[2018-04-04] MEDS: amLODIPine TAB* 5 MG PO SCH (07:46)
[2018-04-04] MEDS: Magnesium Oxide TAB* 400 MG PO SCH ×2 (07:46→20:28)
[2018-04-04] MEDS: [UNRECOGNIZED DRUG - OTHER] PO SCH (07:47)
[2018-04-04] MEDS: Polyethylene Glycol 3350* 17 GM PACKET PO SCH (07:47)
[2018-04-04] MEDS: [UNRECOGNIZED DRUG - OTHER] PO SCH (07:48)
[2018-04-04] MEDS: Docusate CAP* 100 MG PO SCH ×2 (07:50→20:27)
--- NOTE | 2018-04-04 09:58 | PN ---
Progress Note Date of Service: 04/04/18 Note: VERÓNICA DEGROOT was visited. Nursing and therapy notes read and reviewed. She is concerned about being bored over the weekend. Tolerated left resting hand splint overnight without issues. No chest pain, shortness of breath or abdominal pain. Current Medications: Active Medications Generic Name Dose Route Start Last Admin Trade Name Freq PRN Reason Stop Dose Admin Acetaminophen 650 mg 03/21/18 11:15 Tylenol Tab* PO Q4H PRN FEVER > 101 Al Hydrox/Mg Hydrox/Simethicone 30 ml 03/21/18 11:15 Maalox Plus* PO Q6H PRN INDIGESTION Amlodipine Besylate 5 mg 03/22/18 09:00 04/04/18 07:46 Norvasc Tab* PO 5 mg DAILY TIMA Administration Bisacodyl 10 mg 03/21/18 11:49 Dulcolax Supp* [place] DAILY PRN CONSTIPATION Calcium Carbonate 1,250 mg 03/21/18 11:52 04/01/18 09:13 Calcium Carbonate Tab* PO 1,250 mg BID PRN Administration indigestion Docusate Sodium 200 mg 03/21/18 21:00 04/04/18 07:50 Colace Cap* PO Not Given BID TIMA Heparin Sodium (Porcine) 5,000 units 03/21/18 14:00 04/04/18 06:06 Heparin Vial(*) SUBCUT 5,000 units Q8HR TIMA Administration Magnesium Oxide 400 mg 04/02/18 21:00 04/04/18 07:46 Magox 400 Tab* PO 400 mg BID TIMA Administration Pto:(Coromega [place]- 1 packet 03/22/18 09:00 04/04/18 07:48 3 1 Packet) PO 1 packet QAM TIMA Administration (Echinacea Goldseal 1 cap 03/27/18 09:00 04/04/18 07:46 1 Cap) PO 1 cap BID TIMA Administration Pto: (Advanced 2 cap 03/27/18 09:00 04/04/18 07:47 Acidophilus Cap) PO 2 cap DAILY TIMA Administration Polyethylene Glycol/Electrolytes 17 gm 03/22/18 09:00 04/04/18 07:47 Miralax* PO Not Given DAILY TIMA Potassium Chloride 20 meq 03/27/18 09:00 04/04/18 07:45 Klor Con Er Tab* PO 20 meq DAILY TIMA Administration Senna 2 tab 03/21/18 11:15 Senokot Tab* PO BEDTIME PRN CONSTIPATION Vital Signs: Vital Signs Temp Pulse Resp BP Pulse Ox 98.1 F 64 16 113/67 96 04/04/18 06:05 04/04/18 06:05 04/04/18 06:05 04/04/18 06:05 04/04/18 06:05 Exam: GENERAL: no acute distress. alert and appropriate. LUNGS: clear to auscultation bilaterally. HEART: regular rate and rhythm ABDOMEN: + bowel sounds, soft, non-tender, non-distended EXTREMITIES: no edema. lacks full extension in the left elbow NEUROLOGIC: Left cranial nerve VII palsy. 5/5 motor in her right upper and lower extremity with normal sensation. Left UE 2/5 shoulder adduction and biceps. LLE motor showed 3/5 knee ext and 2/5 hip extension. Sensation impaired on left side. Assessment/Plan: 1. Intracranial hemorrhage. Will need repeat MRI of her brain in 1 to 2 months ; follow up with Neurology. 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 2. F/E/N: Mechanical soft diet and thin liquids per speech.. On MgOx 400mg BID and KCL 20mEq daily. 3. 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 If contracture progresses may need x-ray and consult with ortho regarding possible splinting. 4. Hypertension. Continue with Norvasc. 5. Advanced Directives: She is a full code. Her son, Jt, is her surrogate decision maker. 6. DVT Prophylaxis: TEDs. Blood thinners contraindicated due to ICH 7. Estimated LOS: anticipate d/c around 05/06/18. 04/04/18 09:58
[2018-04-05] MEDS: Heparin VIAL(*) 5000 UNITS/ML VIAL (FIVE THOUSAND) SUBCUT SCH ×3 (05:46→22:14)
--- NOTE | 2018-04-05 10:11 | PN ---
Progress Note Date of Service: 04/05/18 Note: VERÓNICA DEGROOT was visited. Nursing and therapy notes read and reviewed. No chest pain, shortness of breath or abdominal pain. No new concerns. Current Medications: Active Medications Generic Name Dose Route Start Last Admin Trade Name Freq PRN Reason Stop Dose Admin Acetaminophen 650 mg 03/21/18 11:15 Tylenol Tab* PO Q4H PRN FEVER > 101 Al Hydrox/Mg Hydrox/Simethicone 30 ml 03/21/18 11:15 Maalox Plus* PO Q6H PRN INDIGESTION Amlodipine Besylate 5 mg 03/22/18 09:00 04/04/18 07:46 Norvasc Tab* PO 5 mg DAILY TIMA Administration Bisacodyl 10 mg 03/21/18 11:49 Dulcolax Supp* [place] DAILY PRN CONSTIPATION Calcium Carbonate 1,250 mg 03/21/18 11:52 04/01/18 09:13 Calcium Carbonate Tab* PO 1,250 mg BID PRN Administration indigestion Docusate Sodium 200 mg 03/21/18 21:00 04/04/18 20:27 Colace Cap* PO 200 mg BID TIMA Administration Heparin Sodium (Porcine) 5,000 units 03/21/18 14:00 04/05/18 05:46 Heparin Vial(*) SUBCUT 5,000 units Q8HR TIMA Administration Magnesium Oxide 400 mg 04/02/18 21:00 04/04/18 20:28 Magox 400 Tab* PO 400 mg BID TIMA Administration Pto:(Coromega [place]- 1 packet 03/22/18 09:00 04/04/18 07:48 3 1 Packet) PO 1 packet QAM TIMA Administration (Echinacea Goldseal 1 cap 03/27/18 09:00 04/04/18 20:28 1 Cap) PO 1 cap BID TIMA Administration Pto: (Advanced 2 cap 03/27/18 09:00 04/04/18 07:47 Acidophilus Cap) PO 2 cap DAILY TIMA Administration Polyethylene Glycol/Electrolytes 17 gm 03/22/18 09:00 04/04/18 07:47 Miralax* PO Not Given DAILY TIMA Potassium Chloride 20 meq 03/27/18 09:00 04/04/18 07:45 Klor Con Er Tab* PO 20 meq DAILY TIMA Administration Senna 2 tab 03/21/18 11:15 Senokot Tab* PO BEDTIME PRN CONSTIPATION Vital Signs: Vital Signs Temp Pulse Resp BP Pulse Ox 98.3 F 66 16 117/81 92 04/05/18 05:47 04/05/18 05:47 04/05/18 05:47 04/05/18 05:47 04/04/18 16:21 Exam: GENERAL: no acute distress. alert and appropriate. LUNGS: clear to auscultation bilaterally. HEART: regular rate and rhythm ABDOMEN: + bowel sounds, soft, non-tender, non-distended EXTREMITIES: no edema. lacks full extension in the left elbow NEUROLOGIC: Left cranial nerve VII palsy. 5/5 motor in her right upper and lower extremity with normal sensation. Left UE 2/5 shoulder adduction and biceps. LLE motor showed 3/5 knee ext and 2/5 hip extension. Sensation impaired on left side. Assessment/Plan: 1. Intracranial hemorrhage. Will need repeat MRI of her brain in 1 to 2 months ; follow up with Neurology. 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 2. F/E/N: Mechanical soft diet and thin liquids per speech.. On MgOx 400mg BID and KCL 20mEq daily. 3. 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 If contracture progresses may need x-ray and consult with ortho regarding possible splinting. 4. Hypertension. Continue with Norvasc. 5. Advanced Directives: She is a full code. Her son, Jt, is her surrogate decision maker. 6. DVT Prophylaxis: TEDs. Blood thinners contraindicated due to ICH 7. Estimated LOS: anticipate d/c around 05/06/18. 04/05/18 10:11
[2018-04-05] MEDS: Docusate CAP* 100 MG PO SCH ×2 (10:17→22:13)
[2018-04-05] MEDS: Magnesium Oxide TAB* 400 MG PO SCH ×2 (10:18→22:12)
[2018-04-05] MEDS: [UNRECOGNIZED DRUG - OTHER] PO SCH (10:18)
[2018-04-05] MEDS: amLODIPine TAB* 5 MG PO SCH (10:18)
[2018-04-05] MEDS: Potassium Chlor TAB* 20 MEQ TAB.ER PO SCH (10:18)
[2018-04-05] MEDS: [UNRECOGNIZED DRUG - OTHER] PO SCH ×2 (10:20→22:12)
[2018-04-05] MEDS: [UNRECOGNIZED DRUG - OTHER] PO SCH (10:20)
[2018-04-05] MEDS: Polyethylene Glycol 3350* 17 GM PACKET PO SCH (10:21)
[2018-04-06] MEDS: Heparin VIAL(*) 5000 UNITS/ML VIAL (FIVE THOUSAND) SUBCUT SCH ×3 (05:28→21:37)
[2018-04-06] MEDS: amLODIPine TAB* 5 MG PO SCH (08:17)
[2018-04-06] MEDS: Magnesium Oxide TAB* 400 MG PO SCH ×2 (08:17→21:35)
[2018-04-06] MEDS: Potassium Chlor TAB* 20 MEQ TAB.ER PO SCH (08:17)
[2018-04-06] MEDS: Docusate CAP* 100 MG PO SCH ×2 (08:17→21:35)
[2018-04-06] MEDS: [UNRECOGNIZED DRUG - OTHER] PO SCH (08:18)
[2018-04-06] MEDS: [UNRECOGNIZED DRUG - OTHER] PO SCH (08:19)
[2018-04-06] MEDS: Polyethylene Glycol 3350* 17 GM PACKET PO SCH (08:20)
[2018-04-06] MEDS: [UNRECOGNIZED DRUG - OTHER] PO SCH ×2 (08:21→21:35)
--- NOTE | 2018-04-06 10:22 | PN ---
Progress Note Date of Service: 04/06/18 Note: VERÓNICA DEGROOT was visited. Nursing notes read and reviewed. No therapy yesterday. She got quite bored. No chest pain, shortness of breath or abdominal pain. Current Medications: Active Medications Generic Name Dose Route Start Last Admin Trade Name Freq PRN Reason Stop Dose Admin Acetaminophen 650 mg 03/21/18 11:15 Tylenol Tab* PO Q4H PRN FEVER > 101 Al Hydrox/Mg Hydrox/Simethicone 30 ml 03/21/18 11:15 Maalox Plus* PO Q6H PRN INDIGESTION Amlodipine Besylate 5 mg 03/22/18 09:00 04/06/18 08:17 Norvasc Tab* PO 5 mg DAILY TIMA Administration Bisacodyl 10 mg 03/21/18 11:49 Dulcolax Supp* [place] DAILY PRN CONSTIPATION Calcium Carbonate 1,250 mg 03/21/18 11:52 04/01/18 09:13 Calcium Carbonate Tab* PO 1,250 mg BID PRN Administration indigestion Docusate Sodium 200 mg 03/21/18 21:00 04/06/18 08:17 Colace Cap* PO 200 mg BID TIMA Administration Heparin Sodium (Porcine) 5,000 units 03/21/18 14:00 04/06/18 05:28 Heparin Vial(*) SUBCUT 5,000 units Q8HR TIMA Administration Magnesium Oxide 400 mg 04/02/18 21:00 04/06/18 08:17 Magox 400 Tab* PO 400 mg BID TIMA Administration Pto:(Coromega [place]- 1 packet 03/22/18 09:00 04/06/18 08:18 3 1 Packet) PO 1 packet QAM TIMA Administration (Echinacea Goldseal 1 cap 03/27/18 09:00 04/06/18 08:21 1 Cap) PO 1 cap BID TIMA Administration Pto: (Advanced 2 cap 03/27/18 09:00 04/06/18 08:19 Acidophilus Cap) PO 2 cap DAILY TIMA Administration Polyethylene Glycol/Electrolytes 17 gm 03/22/18 09:00 04/06/18 08:20 Miralax* PO Not Given DAILY TIMA Potassium Chloride 20 meq 03/27/18 09:00 04/06/18 08:17 Klor Con Er Tab* PO 20 meq DAILY TIMA Administration Senna 2 tab 03/21/18 11:15 Senokot Tab* PO BEDTIME PRN CONSTIPATION Vital Signs: Vital Signs Temp Pulse Resp BP Pulse Ox 98.7 F 70 20 127/86 100 04/06/18 05:31 04/06/18 05:31 04/06/18 05:31 04/06/18 05:31 04/06/18 05:31 Exam: GENERAL: no acute distress. alert and appropriate. LUNGS: clear to auscultation bilaterally. HEART: regular rate and rhythm ABDOMEN: + bowel sounds, soft, non-tender, non-distended EXTREMITIES: no edema. Cassius grade II tone to biceps, wrist/finger flexors NEUROLOGIC: Left cranial nerve VII palsy. 5/5 motor in her right upper and lower extremity with normal sensation. Left UE 2/5 shoulder adduction and biceps. LLE motor showed 3/5 knee ext and 2/5 hip extension. Sensation impaired on left side. Assessment/Plan: 1. Intracranial hemorrhage. Will need repeat MRI of her brain in 1 to 2 months ; follow up with Neurology. 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 2. F/E/N: Mechanical soft diet and thin liquids per speech.. On MgOx 400mg BID and KCL 20mEq daily. 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 Educated on ROM and stretching daily. 4. Hypertension. Continue with Norvasc. 5. Advanced Directives: She is a full code. Her son, Jt, is her surrogate decision maker. 6. DVT Prophylaxis: TEDs. Blood thinners contraindicated due to ICH 7. Estimated LOS: anticipate d/c around 05/06/18. 04/06/18 10:27
[2018-04-07] MEDS: Heparin VIAL(*) 5000 UNITS/ML VIAL (FIVE THOUSAND) SUBCUT SCH ×3 (06:00→21:33)
[2018-04-07] MEDS: [UNRECOGNIZED DRUG - OTHER] PO SCH (08:33)
[2018-04-07] MEDS: [UNRECOGNIZED DRUG - OTHER] PO SCH ×2 (08:34→20:26)
[2018-04-07] MEDS: Potassium Chlor TAB* 20 MEQ TAB.ER PO SCH (08:34)
[2018-04-07] MEDS: amLODIPine TAB* 5 MG PO SCH (08:34)
[2018-04-07] MEDS: Docusate CAP* 100 MG PO SCH ×2 (08:34→20:26)
[2018-04-07] MEDS: Magnesium Oxide TAB* 400 MG PO SCH ×2 (08:34→20:27)
[2018-04-07] MEDS: Polyethylene Glycol 3350* 17 GM PACKET PO SCH (08:35)
[2018-04-07] MEDS: [UNRECOGNIZED DRUG - OTHER] PO SCH (08:35)
--- NOTE | 2018-04-07 17:06 | PN ---
Progress Note Date of Service: 04/07/18 Note: VERÓNICA DEGROOT was visited. Therapy notes read and reviewed. She seems to be slowly doing better. She was able to stand unsupported in PT today with contact guard Current Medications: Active Medications Generic Name Dose Route Start Last Admin Trade Name Freq PRN Reason Stop Dose Admin Acetaminophen 650 mg 03/21/18 11:15 Tylenol Tab* PO Q4H PRN FEVER > 101 Al Hydrox/Mg Hydrox/Simethicone 30 ml 03/21/18 11:15 Maalox Plus* PO Q6H PRN INDIGESTION Amlodipine Besylate 5 mg 03/22/18 09:00 04/07/18 08:34 Norvasc Tab* PO 5 mg DAILY TIMA Administration Bisacodyl 10 mg 03/21/18 11:49 Dulcolax Supp* [place] DAILY PRN CONSTIPATION Calcium Carbonate 1,250 mg 03/21/18 11:52 04/01/18 09:13 Calcium Carbonate Tab* PO 1,250 mg BID PRN Administration indigestion Docusate Sodium 200 mg 03/21/18 21:00 04/07/18 08:34 Colace Cap* PO 100 mg BID TIMA Administration Heparin Sodium (Porcine) 5,000 units 03/21/18 14:00 04/07/18 14:34 Heparin Vial(*) SUBCUT 5,000 units Q8HR TIMA Administration Magnesium Oxide 400 mg 04/02/18 21:00 04/07/18 08:34 Magox 400 Tab* PO 400 mg BID TIMA Administration Pto:(Coromega [place]- 1 packet 03/22/18 09:00 04/07/18 08:33 3 1 Packet) PO 1 packet QAM TIMA Administration (Echinacea Goldseal 1 cap 03/27/18 09:00 04/07/18 08:34 1 Cap) PO 1 cap BID TIMA Administration Pto: (Advanced 2 cap 03/27/18 09:00 04/07/18 08:35 Acidophilus Cap) PO 2 cap DAILY TIMA Administration Polyethylene Glycol/Electrolytes 17 gm 03/22/18 09:00 04/07/18 08:35 Miralax* PO 17 gm DAILY TIMA Administration Potassium Chloride 20 meq 03/27/18 09:00 04/07/18 08:34 Klor Con Er Tab* PO 20 meq DAILY TIMA Administration Senna 2 tab 03/21/18 11:15 Senokot Tab* PO BEDTIME PRN CONSTIPATION Vital Signs: Vital Signs Temp Pulse Resp BP Pulse Ox 99.5 F 64 18 107/68 99 04/07/18 06:00 04/07/18 06:00 04/07/18 06:00 04/07/18 06:00 04/07/18 06:00 Exam: GENERAL: no acute distress. alert and appropriate. LUNGS: clear to auscultation bilaterally. HEART: regular rate and rhythm ABDOMEN: + bowel sounds, soft, non-tender, non-distended EXTREMITIES: no edema. lacks full extension in the left elbow NEUROLOGIC: Left cranial nerve VII palsy. 5/5 motor in her right upper and lower extremity with normal sensation. Left UE 2/5 shoulder adduction. LLE motor showed 2/5 knee ext and hip extension, trace ankle PF. Sensation impaired on left side. Assessment/Plan: 1. Intracranial hemorrhage. Will need repeat MRI of her brain in 1 to 2 months ; follow up with Neurology. 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 2. F/E/N: Mechanical soft diet and thin liquids per speech.. On MgOx 400mg BID and KCL 20mEq daily. 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 Educated on ROM and stretching daily. 4. Hypertension. Continue with Norvasc. 5. Advanced Directives: She is a full code. Her son, tJ, is her surrogate decision maker. 6. DVT Prophylaxis: TEDs. Blood thinners contraindicated due to ICH 7. Estimated LOS: estimate d/c around 05/06/18. 04/07/18 17:07
[2018-04-08] MEDS: Heparin VIAL(*) 5000 UNITS/ML VIAL (FIVE THOUSAND) SUBCUT SCH ×3 (05:55→21:23)
[2018-04-08] MEDS: amLODIPine TAB* 5 MG PO SCH (07:27)
[2018-04-08] MEDS: Magnesium Oxide TAB* 400 MG PO SCH ×2 (07:27→20:17)
[2018-04-08] MEDS: Potassium Chlor TAB* 20 MEQ TAB.ER PO SCH (07:27)
[2018-04-08] MEDS: Docusate CAP* 100 MG PO SCH ×2 (07:27→20:18)
[2018-04-08] MEDS: [UNRECOGNIZED DRUG - OTHER] PO SCH (07:28)
[2018-04-08] MEDS: [UNRECOGNIZED DRUG - OTHER] PO SCH (07:28)
[2018-04-08] MEDS: Polyethylene Glycol 3350* 17 GM PACKET PO SCH (07:29)
[2018-04-08] MEDS: [UNRECOGNIZED DRUG - OTHER] PO SCH ×2 (07:29→20:18)
--- NOTE | 2018-04-08 12:41 | PMRUTEAM ---
PMRU: Team Meeting Current Status: Nursing: Current Status Skin Deviations [Abdomen] Rash Skin Deviations [Coccyx] Other Skin Deviations [Right Groin] Previous Access Point Skin Deviation Description [ unchanged from earlier today Abdomen] Skin Deviation Description [ slightly reddened Coccyx] Skin Deviation Description [ healed Right Groin] Bladder Current Status voiding Bowel Current Status bowel meds continue, pt did decline miralax Nutrition Current Status appetite good Medication Current Status medications reviewed, pt very aware of regime Physical Therapy: Current Status Bed Mobility Assistance 2 or More Person Assist Transfer Moblility Assistance Max Assist Transfer/Bed Mobility None,EZ Stand Recommended Devices Ambulation Assistance Min Assist,Mod Assist Ambulation Assistive Devices Hand Hold Number of Feet Patient 2' in // bars Ambulated Occupational Therapy: Current Status Upper Body Dressing Min Assist Lower Body Dressing Total Assist Lower Body Dressing Progress rolling in bed or standing at bedrail Bathing Max Asst Bathing Progress in shower w/c today Toileting Max Asst,2 Person Assist Toileting Progress rolling in bed or standing at bedrail Toilet Transfer Total Assist Toilet Transfer Progress mod A to BSC with SPT Shower Transfer Total Assist Shower Transfer Progress not attempted showers in w/c Eating Supervision Eating Progress set up Rec Therapy: Current Status Summary of Assessment and RT assessment complete and pt. is aware of Clinical Impression services. Pt. has been actively engaged in leisure activities and sessions while on the unit. Treatment Goals Patient will engage in recreation and leisure activities while on the unit. Treatment Plan Provide and encourage involvement in RT services. Social Work: Current Status Discharge Plan return home with home care svs and family support Potential for Family Training pt's family and friends are involved and supportive Anticipated Discharge Home Destination Discharge With home care svs and family support Nutrition: Current Status Monitoring Eating well (100%) w/heart healthy diet (caffeine ok); mech soft textures tolerated well. Generally independent with meals, with occasional assistance opening containers. Nsg measures in place to maintain skin integrity; there is no noted breakdown to coccyx per today's skin assessment per nursing. Calorie/prot/fluid needs estimated and pt appears to be meeting these needs so far. Serum mag down to 1.4 as of 04/02; daily magnesium supplementation increased to 400 mg BID (from once daily). Will follow for improvement. Speech: Current Status Assessment Patient is progressing as expected Speech Current Status Goal 1 Mild-moderate impairment Speech Goal 2 Current Status Moderate impairment Speech Goal 3 Current Status Moderate impairment Goals: Physical Therapy: Initial Goals Bed Mobility Assistance Independent Transfer Mobility Assistance Independent Transfer/Bed Mobility Manoj Walker Recommended Devices Ambulation Independent Ambulation Recommended Devices Manoj Walker Ambulation Distance 50 Wheelchair Propulsion Ability Independent Stairs Assistance Independent Stair Recommended Devices One Rail Number of Stairs 5 Physical Therapy: Updated Goals Transfer/Bed Mobility Lisa Lift Recommended Devices Occupational Therapy: Initial Goals Goals to be Completed in (Days 4-6 weeks ) Upper Body Bathing Routine Modified Independent with Lower Body Bathing Routine Modified Independent with Upper Body Dressing Routine Modified Independent with Lower Body Dressing Routine Modified Independent with Toilet Hygeine and Clothing Modified Independent with Management Routine Toilet Transfer Routine Modified Independent with Tub Transfer Routine Supervision/Set Up Functional Transfers for ADL Modified Independent with Grooming Routine Modified Independent with Feeding Routine Modified Independent with Nursing: Goals Bladder Goal indep Bowel Goal indep Nutrition Goal indep Medication Goal indep Nutrition: Goals Intervention Goals 1. Pt will tolerate least-restrictive diet texture without s/sx difficulty chewing 2. Intake will remain >75% of meals 3. Intake will be adequate to maintain stable wt 4. Serum magnesium will return to normal ranges w/ daily supplementation Speech: Goals Speech Goal 1 Comprehension Speech Evaluation Status Goal Mild-moderate impairment 1 Speech Current Status Goal 1 Mild-moderate impairment Goal 1 Comments Long-Term Goal: Pt will use compensatory strategies to demonstrate comprehension of paragraph length verbal and written information of moderate complexity, 100% accuracy, given minimal extra time, Independently. Short-Term Goal: Pt will use compensatory strategies to attend to information in the Left visual field and demonstrate comprehension of paragraph length verbal and written information of moderate complexity, 95% accuracy, given moderate extra time, Independently. Status: Progressing as expected. Speech Goal 2 Problem Solving Speech Goal 2 Evaluation Moderate impairment Status Speech Goal 2 Current Status Moderate impairment Speech Goal 2 Comments Long-Term Goal: Patient will use compensatory strategies to solve moderately complex routine problems, with 100% accuracy, Independently, for ADLs such as shopping, time and money management. Short-Term Goal: Patient will use compensatory strategies to attend to information in the Left visual field to solve moderately complex problems, with 80% accuracy, given Moderate skilled instruction and cueing. Status: Met. Revise to 90% accuracy, Minimal cueing. Pt completed functional numerical and reading tasks. Pt able was able to solve simple multiplication problems with 21/25, requiring reminders/prompts to look at function (started adding vs. multiplication). Speech Goal 3 Motor speech Speech Goal 3 Evaluation Moderate impairment Status Speech Goal 3 Current Status Moderate impairment Speech Goal 3 Comments Long-Term Goal: Patient will demonstrate improvement in range and rate of motion of her Left side labial retractors, elevators and depressors, to 90% of Right side, to achieve functional ability to eat and drink without spillage, speak with minimal distortion, and make appropriate facial expressions. Short Term Goal: Patient will demonstrate improvement in range and rate of motion of her Left side labial retractors, elevators and depressors, to 90% of Right side, achieve functional ability to eat and drink without spillage, speak with minimal distortion, and make appropriate facial expressions, given Minimal cueing. Status: Progressing as expected. Given visual and verbal cueing, and verbal stimuli to labial retraction, pucker, pout and facial expressions, patient labial retraction was ~80% symmetrical Left side lip retraction, puckered symmetrical, and lower lip protrusion symmetry was ~60%. Pt reports continued practice to use harmonica for oral/motor tasks, with moderate cues to use lip seal, positioning of tongue to play single notes vs. chords. Pt continues to exhibit mild-moderate L labiobuccal weakness. Social Work: Goals Discharge Plan return home with home care svs and family support Potential for Family Training pt's family and friends are involved and supportive Anticipated Discharge Home Destination Discharge With home care svs and family support Care Plan: Care Plan ADL's - Improve/Maintain Start: 03/23/18 00:21 Freq: DAILY Status: Active Target: Protocol: Activity Type Activity Date Activity User E-Sign Co-Sign Detail Recorded Client Recorded Date Recorded By Document 04/03/18 13:54 [id number] [id number] 04/03/18 13:54 [id number] 04/03/18 13:54 PMRU Outcome: ADL's/ADL Transfers Orders/Interventions Occupational Therapy Evaluation & Treatment Communication Tool in Patient Room Patient to receive OT 5x/wk for 60-120 Therex min/day Self Care Management Group Therapy Neuromuscular ReEducation UE/LE ADL's with Assist Yes: mod I ADL Transfers with Assist Yes: mod I Toileting: Transfers,Clothing Management Yes: mod I ,Hygeine w/Assist Progression Toward Outcome/Goals Progressing Outcome/Goals Met Pt presents with improved stand-pivot transfer status , sitting balance, sitting unsupported endurance, and attention to the left side. Communication-Improve/Maintain Start: 03/23/18 00:21 Freq: DAILY Status: Active Target: Protocol: Activity Type Activity Date Activity User E-Sign Co-Sign Detail Recorded Client Recorded Date Recorded By Document 04/08/18 00:22 [id number] [id number] 04/08/18 00:22 [id number] 04/08/18 00:22 PMRU Outcome: Communication/Cognitive Status Outcome/Goals Makes Needs Known Effectively Progression Toward Outcomes/Goals Progressing Discharge Planning - Improve/Maintain Start: 03/23/18 00:21 Freq: DAILY Status: Active Target: Protocol: Activity Type Activity Date Activity User E-Sign Co-Sign Detail Recorded Client Recorded Date Recorded By Document 04/08/18 00:00 [id number] 04/08/18 00:22 [id number] 04/08/18 00:00 PMRU Outcome: Discharge Planning Update Patient Family No Outcome/Goals Demonstrates Understanding of Discharge Plan Progression Toward Outcome/Goals Progressing Education-Improve/Maintain Start: 03/23/18 00:21 Freq: QSHIFT Status: Active Target: Protocol: Activity Type Activity Date Activity User E-Sign Co-Sign Detail Recorded Client Recorded Date Recorded By Document 04/08/18 10:38 [id number] [email or web address] 04/08/18 10:39 [id number] 04/08/18 10:38 PMRU Outcome: Education Outcome/Goals Encourage Questions Progression Toward Outcome/Goals Progressing /GI-Improve/Maintain Start: 03/23/18 00:21 Freq: QSHIFT Status: Active Target: Protocol: Activity Type Activity Date Activity User E-Sign Co-Sign Detail Recorded Client Recorded Date Recorded By Document 04/08/18 10:38 [id number] 04/08/18 10:39 [id number] 04/08/18 10:38 PMRU Outcome: Genitourinary/ Gastrointestinal Genitourinary- Outcome/Goals Maintain/ Achieve Urinary Continence Gastrointestinal-Outcome/Goals Maintain/ Achieve Bowel Regularity in Accordance with Pt's Baseline Prevent Constipation Laxatives as Ordered Progression Toward Outcome/Goals - Progressing Progression Toward Outcome/Goals - GI Progressing Outcome/Goals Met Comment colace given this am Mobility- Improve/Maintain Start: 03/21/18 17:34 Freq: DAILY Status: Active Target: Protocol: Activity Type Activity Date Activity User E-Sign Co-Sign Detail Recorded Client Recorded Date Recorded By Document 03/26/18 16:51 [id number] [email or web address] 03/26/18 16:51 [id number] 03/26/18 16:51 PMRU Outcome: Mobility Physical Therapy Evaluation and Yes Treatment Activity OOB with Assistance Yes WBAT Yes Device Yes Assistance Yes Patient to be seen 5x/wk for 60-120 min/ Therex day for: Mobility Training Gait Training W/C Mobility Balance Outcome/Goals Maintain/ Achieve Baseline Mobility Status Improve Mobility Status Demonstrates Proper Use of Assistive Devices Free from Complications of Immobility Progression Toward Outcome/Goals Progressing Outcome/Goals Met Comment improved ability to extend LLE against gravity Bed Mobility Yes: independnet Transfers Yes: independent with manoj walker Gait x ft Yes: independent with hemiwalker 50' W/C Mobility x ft Yes: independent with RU/LE 300' Up/Down Stairs Yes: inddependent up /down 5 stairs. Neurological- Improve/Maintain Start: 03/23/18 00:21 Freq: QSHIFT Status: Active Target: Protocol: Activity Type Activity Date Activity User E-Sign Co-Sign Detail Recorded Client Recorded Date Recorded By Document 04/08/18 10:38 [id number] [id number] 04/08/18 10:39 [id number] 04/08/18 10:38 PMRU Outcome: Neurological Weakness/Aphasia Weakness Left Side Weakness/Aphasia Comment left sided weakness Outcome/Goals Maintain/ Achieve Baseline Neurological Status Maintain/ Improve Strength/ROM Progression Toward Outcome/Goals Progressing Pain/Comfort- Improve/Maintain Start: 03/23/18 00:21 Freq: QSHIFT Status: Complete Target: Protocol: Activity Type Activity Date Activity User E-Sign Co-Sign Detail Recorded Client Recorded Date Recorded By Document 04/08/18 10:38 [id number] 04/08/18 10:39 [id number] 04/08/18 10:38 PMRU Outcome: Pain/Comfort Outcome/Goals Demonstrates Knowledge and Use of Available Comfort Measures Achieves Acceptable Comfort/Pain Level as Determined by Patient/Condit Maintain Comfort Level Allowing Patient to Fully Participate in Rehab Progression Toward Outcome/Goals Progressing Outcome/Goals Met Comment no c/o pain verbalized thus far. Safety- Improve/Maintain Start: 03/23/18 00:21 Freq: QSHIFT Status: Active Target: Protocol: Activity Type Activity Date Activity User E-Sign Co-Sign Detail Recorded Client Recorded Date Recorded By Document 04/08/18 10:38 [id number] [email or web address] 04/08/18 10:39 [id number] 04/08/18 10:38 PMRU Outcome: Safety Outcome/Goals Remain Free of Injury or Harm Cooperates with Safety Measures for Least Restrictive Environment Prevent Falls/ Injury Progression Toward Outcome/Goals Progressing Outcome/Goals Met Comment patient remains high risk Skin- Improve/Maintain Start: 03/23/18 00:21 Freq: QSHIFT Status: Active Target: Protocol: Activity Type Activity Date Activity User E-Sign Co-Sign Detail Recorded Client Recorded Date Recorded By Document 04/08/18 10:38 [id number] 04/08/18 10:39 [id number] 04/08/18 10:38 PMRU Outcome: Skin Skin Risk Level Medium Skin Orders Turn/Position q2hr While in Bed Outcome/Goals Maintain/ Improve Skin Intergrity Progression Toward Outcome/Goals Progressing Medicine Note: Length of Stay: 4 weeks Anticipated Discharge Destination: Home Tentative Discharge Date: 05/06/18 Discharged to: Home
--- NOTE | 2018-04-08 19:49 | PN ---
Progress Note Date of Service: 04/08/18 Note: VERÓNICA DEGROOT was visited. Therapy notes read and reviewed. She was discussed in interdisciplinary team rounds. She is making progress and was able to take a few steps with assistance Current Medications: Active Medications Generic Name Dose Route Start Last Admin Trade Name Freq PRN Reason Stop Dose Admin Acetaminophen 650 mg 03/21/18 11:15 Tylenol Tab* PO Q4H PRN FEVER > 101 Al Hydrox/Mg Hydrox/Simethicone 30 ml 03/21/18 11:15 Maalox Plus* PO Q6H PRN INDIGESTION Amlodipine Besylate 5 mg 03/22/18 09:00 04/08/18 07:27 Norvasc Tab* PO 5 mg DAILY TIMA Administration Bisacodyl 10 mg 03/21/18 11:49 Dulcolax Supp* [place] DAILY PRN CONSTIPATION Calcium Carbonate 1,250 mg 03/21/18 11:52 04/01/18 09:13 Calcium Carbonate Tab* PO 1,250 mg BID PRN Administration indigestion Docusate Sodium 200 mg 03/21/18 21:00 04/08/18 07:27 Colace Cap* PO 200 mg BID TIMA Administration Heparin Sodium (Porcine) 5,000 units 03/21/18 14:00 04/08/18 13:07 Heparin Vial(*) SUBCUT 5,000 units Q8HR TIMA Administration Magnesium Oxide 400 mg 04/02/18 21:00 04/08/18 07:27 Magox 400 Tab* PO 400 mg BID TIMA Administration Pto:(Coromega [place]- 1 packet 03/22/18 09:00 04/08/18 07:28 3 1 Packet) PO 1 packet QAM TIMA Administration (Echinacea Goldseal 1 cap 03/27/18 09:00 04/08/18 07:29 1 Cap) PO 1 cap BID TIMA Administration Pto: (Advanced 2 cap 03/27/18 09:00 04/08/18 07:28 Acidophilus Cap) PO 2 cap DAILY TIMA Administration Polyethylene Glycol/Electrolytes 17 gm 03/22/18 09:00 04/08/18 07:29 Miralax* PO Not Given DAILY TIMA Potassium Chloride 20 meq 03/27/18 09:00 04/08/18 07:27 Klor Con Er Tab* PO 20 meq DAILY TIMA Administration Senna 2 tab 03/21/18 11:15 Senokot Tab* PO BEDTIME PRN CONSTIPATION Vital Signs: Vital Signs Temp Pulse Resp BP Pulse Ox 98.3 F 76 20 100/67 100 04/08/18 15:44 04/08/18 15:44 04/08/18 17:02 04/08/18 15:44 04/08/18 17:02 Exam: GENERAL: no acute distress. alert and appropriate. LUNGS: clear to auscultation bilaterally. HEART: regular rate and rhythm ABDOMEN: + bowel sounds, soft, non-tender, non-distended EXTREMITIES: no edema. lacks full extension in the left elbow NEUROLOGIC: Left cranial nerve VII palsy. 5/5 motor in her right upper and lower extremity with normal sensation. Left UE 2/5 shoulder adduction. LLE motor showed 2/5 knee ext and hip extension, trace ankle PF. Sensation impaired on left side. Assessment/Plan: 1. Intracranial hemorrhage. Will need repeat MRI of her brain in 1 to 2 months ; follow up with Neurology. PT/OT/DIRECTOR CALL. 2. F/E/N: Mechanical soft diet and thin liquids per speech.. On MgOx 400mg BID and KCL 20mEq daily. 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 Educated on ROM and stretching daily. 4. Hypertension. Continue with Norvasc. 5. Advanced Directives: She is a full code. Her son, Jt, is her surrogate decision maker. 6. DVT Prophylaxis: TEDs. Blood thinners contraindicated due to ICH 7. Estimated LOS: estimate d/c around 05/06/18. 04/08/18 19:50
[2018-04-08] MEDS: Senna TAB PO PRN (20:21)
[2018-04-09] MEDS: Heparin VIAL(*) 5000 UNITS/ML VIAL (FIVE THOUSAND) SUBCUT SCH ×3 (05:35→21:50)
[2018-04-09 05:47] LABS: ABS Basophils 0.1 10^3/ul (0-0.2); ABS Eosinophils 0.3 10^3/ul (0-0.6); ABS Lymphocytes 1.8 10^3/ul (1.0-4.8); ABS Monocytes 0.8 10^3/ul (0-0.8); ABS Neutrophils 3.7 10^3/ul (1.5-7.7); ABS Nucleated RBC 0 10^3/ul; Eosinophil % 4.6 % (0-6); Hematocrit 38 % (35-47); Hemoglobin 13.3 g/dl (12.0-16.0); Lymphocyte % 27.3 % (25-47); Mean Corpuscular HGB Conc 35 g/dl (31-36); Mean Corpuscular Hemoglobin 35 pg (27-31); Mean Corpuscular Volume 102 fL (80-97); Mean Platelet Volume 7.3 um3 (7.4-10.4); Nucleated Red Blood Cells % 0.1; Platelet Count 268 10^3/ul (150-450); Red Blood Count 3.77 10^6/ul (4.00-5.40); Red Cell Distribution Width 13 % (10.5-15); White Blood Count 6.8 10^3/ul (3.5-10.8)
[2018-04-09 06:32] LABS: EGFR Non-African American 99.1 (>60)
[2018-04-09] MEDS: [UNRECOGNIZED DRUG - OTHER] PO SCH (08:41)
[2018-04-09] MEDS: [UNRECOGNIZED DRUG - OTHER] PO SCH (08:42)
[2018-04-09] MEDS: [UNRECOGNIZED DRUG - OTHER] PO SCH ×2 (08:42→20:40)
[2018-04-09] MEDS: amLODIPine TAB* 5 MG PO SCH (08:43)
[2018-04-09] MEDS: Potassium Chlor TAB* 20 MEQ TAB.ER PO SCH (08:43)
[2018-04-09] MEDS: Magnesium Oxide TAB* 400 MG PO SCH ×2 (08:43→20:39)
[2018-04-09] MEDS: Polyethylene Glycol 3350* 17 GM PACKET PO SCH (08:44)
[2018-04-09] MEDS: Docusate CAP* 100 MG PO SCH ×2 (08:44→19:33)
--- NOTE | 2018-04-09 20:03 | PN ---
Progress Note Date of Service: 04/09/18 Note: VERÓNICA DEGROOT was visited. Therapy notes read and reviewed. Doing okay in therapy. Labs show Mg++ slowly rising. No complaints otherwise Current Medications: Active Medications Generic Name Dose Route Start Last Admin Trade Name Freq PRN Reason Stop Dose Admin Acetaminophen 650 mg 03/21/18 11:15 Tylenol Tab* PO Q4H PRN FEVER > 101 Al Hydrox/Mg Hydrox/Simethicone 30 ml 03/21/18 11:15 Maalox Plus* PO Q6H PRN INDIGESTION Amlodipine Besylate 5 mg 03/22/18 09:00 04/09/18 08:43 Norvasc Tab* PO 5 mg DAILY TIMA Administration Bisacodyl 10 mg 03/21/18 11:49 Dulcolax Supp* [place] DAILY PRN CONSTIPATION Calcium Carbonate 1,250 mg 03/21/18 11:52 04/01/18 09:13 Calcium Carbonate Tab* PO 1,250 mg BID PRN Administration indigestion Docusate Sodium 200 mg 03/21/18 21:00 04/09/18 19:33 Colace Cap* PO Not Given BID TIMA Heparin Sodium (Porcine) 5,000 units 03/21/18 14:00 04/09/18 13:56 Heparin Vial(*) SUBCUT 5,000 units Q8HR TIMA Administration Magnesium Oxide 400 mg 04/02/18 21:00 04/09/18 08:43 Magox 400 Tab* PO 400 mg BID TIMA Administration Pto:(Coromega [place]- 1 packet 03/22/18 09:00 04/09/18 08:41 3 1 Packet) PO 1 packet QAM TIMA Administration (Echinacea Goldseal 1 cap 03/27/18 09:00 04/09/18 08:42 1 Cap) PO 1 cap BID TIMA Administration Pto: (Advanced 2 cap 03/27/18 09:00 04/09/18 08:42 Acidophilus Cap) PO 2 cap DAILY TIMA Administration Polyethylene Glycol/Electrolytes 17 gm 03/22/18 09:00 04/09/18 08:44 Miralax* PO Not Given DAILY TIMA Potassium Chloride 20 meq 03/27/18 09:00 04/09/18 08:43 Klor Con Er Tab* PO 20 meq DAILY TIMA Administration Senna 2 tab 03/21/18 11:15 04/08/18 20:21 Senokot Tab* PO 2 tab BEDTIME PRN Administration CONSTIPATION Vital Signs: Vital Signs Temp Pulse Resp BP Pulse Ox 98.2 F 20 17 111/67 100 04/09/18 19:25 04/09/18 19:25 04/09/18 19:25 04/09/18 19:25 04/09/18 19:25 Lab Results: Laboratory Results - last 24 hr 04/09/18 04/09/18 05:26 05:26 WBC 6.8 RBC 3.77 L Hgb 13.3 Hct 38 MCV 102 H MCH 35 H MCHC 35 RDW 13 Plt Count 268 MPV 7.3 L Neut % (Auto) 55.0 Lymph % (Auto) 27.3 [place] % (Auto) 12.1 H Eos % (Auto) 4.6 Baso % (Auto) 1.0 Absolute Neuts (auto) 3.7 Absolute Lymphs (auto) 1.8 Absolute Monos (auto) 0.8 Absolute Eos (auto) 0.3 Absolute Basos (auto) 0.1 Absolute Nucleated RBC 0 Nucleated RBC % 0.1 Sodium 139 Potassium 4.0 Chloride 104 Carbon Dioxide 27 Anion Gap 8 BUN 9 Creatinine 0.61 Est GFR ( Amer) 119.9 Est GFR (Non-Af Amer) 99.1 BUN/Creatinine Ratio 14.8 Glucose 96 Calcium 9.8 Magnesium 1.5 L Total Bilirubin 0.40 AST 30 ALT 44 Alkaline Phosphatase 42 Total Protein 6.5 Albumin 3.8 Globulin 2.7 Albumin/Globulin Ratio 1.4 Exam: GENERAL: no acute distress. alert and appropriate. LUNGS: clear to auscultation bilaterally. HEART: regular rate and rhythm ABDOMEN: + bowel sounds, soft, non-tender, non-distended EXTREMITIES: no edema. lacks full extension in the left elbow NEUROLOGIC: Left cranial nerve VII palsy. 5/5 motor in her right upper and lower extremity with normal sensation. Left UE 2/5 shoulder adduction. LLE motor showed 2/5 knee ext and hip extension, trace ankle PF. Sensation impaired on left side. Assessment/Plan: 1. Intracranial hemorrhage. Will need repeat MRI of her brain in 1 to 2 months ; follow up with Neurology. 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 2. F/E/N: Mechanical soft diet and thin liquids per speech.. On MgOx 400mg BID and KCL 20mEq daily. 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 Educated on ROM and stretching daily. 4. Hypertension. Continue with Norvasc. 5. Advanced Directives: She is a full code. Her son, Jt, is her surrogate decision maker. 6. DVT Prophylaxis: TEDs. Blood thinners contraindicated due to ICH 7. Estimated LOS: estimate d/c around 05/06/18. 04/09/18 20:04
[2018-04-09] MEDS: Senna TAB PO PRN (20:43)
[2018-04-10] MEDS: Heparin VIAL(*) 5000 UNITS/ML VIAL (FIVE THOUSAND) SUBCUT SCH ×3 (06:05→21:46)
[2018-04-10] MEDS: [UNRECOGNIZED DRUG - OTHER] PO SCH (08:02)
[2018-04-10] MEDS: [UNRECOGNIZED DRUG - OTHER] PO SCH (08:03)
[2018-04-10] MEDS: [UNRECOGNIZED DRUG - OTHER] PO SCH ×2 (08:03→21:45)
[2018-04-10] MEDS: Magnesium Oxide TAB* 400 MG PO SCH ×2 (08:04→21:45)
[2018-04-10] MEDS: Docusate CAP* 100 MG PO SCH ×2 (08:04→20:20)
[2018-04-10] MEDS: amLODIPine TAB* 5 MG PO SCH (08:04)
[2018-04-10] MEDS: Potassium Chlor TAB* 20 MEQ TAB.ER PO SCH (08:04)
[2018-04-10] MEDS: Polyethylene Glycol 3350* 17 GM PACKET PO SCH (08:05)
--- NOTE | 2018-04-10 19:56 | PN ---
Progress Note Date of Service: 04/10/18 Note: VERÓNICA DEGROOT was visited. Therapy notes read and reviewed. She feels pretty good Doing progressively better Current Medications: Active Medications Generic Name Dose Route Start Last Admin Trade Name Freq PRN Reason Stop Dose Admin Acetaminophen 650 mg 03/21/18 11:15 Tylenol Tab* PO Q4H PRN FEVER > 101 Al Hydrox/Mg Hydrox/Simethicone 30 ml 03/21/18 11:15 Maalox Plus* PO Q6H PRN INDIGESTION Amlodipine Besylate 5 mg 03/22/18 09:00 04/10/18 08:04 Norvasc Tab* PO 5 mg DAILY TIMA Administration Bisacodyl 10 mg 03/21/18 11:49 Dulcolax Supp* [place] DAILY PRN CONSTIPATION Calcium Carbonate 1,250 mg 03/21/18 11:52 04/01/18 09:13 Calcium Carbonate Tab* PO 1,250 mg BID PRN Administration indigestion Docusate Sodium 200 mg 03/21/18 21:00 04/10/18 08:04 Colace Cap* PO 100 mg BID TIMA Administration Heparin Sodium (Porcine) 5,000 units 03/21/18 14:00 04/10/18 14:30 Heparin Vial(*) SUBCUT 5,000 units Q8HR TIMA Administration Magnesium Oxide 400 mg 04/02/18 21:00 04/10/18 08:04 Magox 400 Tab* PO 400 mg BID TIMA Administration Pto:(Coromega [place]- 1 packet 03/22/18 09:00 04/10/18 08:02 3 1 Packet) PO 1 packet QAM TIMA Administration (Echinacea Goldseal 1 cap 03/27/18 09:00 04/10/18 08:03 1 Cap) PO 1 cap BID TIMA Administration Pto: (Advanced 2 cap 03/27/18 09:00 04/10/18 08:03 Acidophilus Cap) PO 2 cap DAILY TIMA Administration Polyethylene Glycol/Electrolytes 17 gm 03/22/18 09:00 04/10/18 08:05 Miralax* PO Not Given DAILY TIMA Potassium Chloride 20 meq 03/27/18 09:00 04/10/18 08:04 Klor Con Er Tab* PO 20 meq DAILY TIMA Administration Senna 2 tab 03/21/18 11:15 04/09/18 20:43 Senokot Tab* PO 2 tab BEDTIME PRN Administration CONSTIPATION Vital Signs: Vital Signs Temp Pulse Resp BP Pulse Ox 97.6 F 90 18 107/75 99 04/10/18 15:46 04/10/18 15:46 04/10/18 18:19 04/10/18 15:46 04/10/18 18:10 Exam: GENERAL: no acute distress. alert and appropriate. LUNGS: clear to auscultation bilaterally. HEART: regular rate and rhythm ABDOMEN: + bowel sounds, soft, non-tender, non-distended EXTREMITIES: no edema. lacks full extension in the left elbow NEUROLOGIC: Left cranial nerve VII palsy. 5/5 motor in her right upper and lower extremity with normal sensation. Left UE 2/5 shoulder adduction. LLE motor showed 2/5 knee ext and hip extension, trace ankle PF. Sensation impaired on left side. Assessment/Plan: 1. Intracranial hemorrhage. Will need repeat MRI of her brain in 1 to 2 months ; follow up with Neurology. 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 2. F/E/N: Mechanical soft diet and thin liquids per speech.. On MgOx 400mg BID and KCL 20mEq daily. 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 Educated on ROM and stretching daily. 4. Hypertension. Continue with Norvasc. 5. Advanced Directives: She is a full code. Her son, Jt, is her surrogate decision maker. 6. DVT Prophylaxis: TEDs. Blood thinners contraindicated due to ICH 7. Estimated LOS: estimate d/c around 05/06/18. 04/10/18 19:56
[2018-04-11] MEDS: Heparin VIAL(*) 5000 UNITS/ML VIAL (FIVE THOUSAND) SUBCUT SCH ×3 (05:34→21:30)
[2018-04-11] MEDS: [UNRECOGNIZED DRUG - OTHER] PO SCH (09:05)
[2018-04-11] MEDS: [UNRECOGNIZED DRUG - OTHER] PO SCH (09:06)
[2018-04-11] MEDS: amLODIPine TAB* 5 MG PO SCH (09:06)
[2018-04-11] MEDS: Magnesium Oxide TAB* 400 MG PO SCH ×2 (09:07→21:30)
[2018-04-11] MEDS: [UNRECOGNIZED DRUG - OTHER] PO SCH ×2 (09:07→21:30)
[2018-04-11] MEDS: Potassium Chlor TAB* 20 MEQ TAB.ER PO SCH (09:08)
[2018-04-11] MEDS: Docusate CAP* 100 MG PO SCH ×2 (09:16→21:27)
[2018-04-11] MEDS: Polyethylene Glycol 3350* 17 GM PACKET PO SCH (09:17)
--- NOTE | 2018-04-11 16:52 | PN ---
Progress Note Date of Service: 04/11/18 Note: VERÓNICA DEGROOT was visited. Therapy notes read and reviewed. No complaints. Balance is a little better Current Medications: Active Medications Generic Name Dose Route Start Last Admin Trade Name Freq PRN Reason Stop Dose Admin Acetaminophen 650 mg 03/21/18 11:15 Tylenol Tab* PO Q4H PRN FEVER > 101 Al Hydrox/Mg Hydrox/Simethicone 30 ml 03/21/18 11:15 Maalox Plus* PO Q6H PRN INDIGESTION Amlodipine Besylate 5 mg 03/22/18 09:00 04/11/18 09:06 Norvasc Tab* PO 5 mg DAILY TIMA Administration Bisacodyl 10 mg 03/21/18 11:49 Dulcolax Supp* [place] DAILY PRN CONSTIPATION Calcium Carbonate 1,250 mg 03/21/18 11:52 04/01/18 09:13 Calcium Carbonate Tab* PO 1,250 mg BID PRN Administration indigestion Docusate Sodium 200 mg 03/21/18 21:00 04/11/18 09:16 Colace Cap* PO Not Given BID TIMA Heparin Sodium (Porcine) 5,000 units 03/21/18 14:00 04/11/18 14:49 Heparin Vial(*) SUBCUT 5,000 units Q8HR ITMA Administration Magnesium Oxide 400 mg 04/02/18 21:00 04/11/18 09:07 Magox 400 Tab* PO 400 mg BID TIMA Administration Pto:(Coromega [place]- 1 packet 03/22/18 09:00 04/11/18 09:06 3 1 Packet) PO 1 packet QAM TIMA Administration (Echinacea Goldseal 1 cap 03/27/18 09:00 04/11/18 09:07 1 Cap) PO 1 cap BID TIMA Administration Pto: (Advanced 2 cap 03/27/18 09:00 04/11/18 09:05 Acidophilus Cap) PO 2 cap DAILY TIMA Administration Polyethylene Glycol/Electrolytes 17 gm 03/22/18 09:00 04/11/18 09:17 Miralax* PO Not Given DAILY TIMA Potassium Chloride 20 meq 03/27/18 09:00 04/11/18 09:08 Klor Con Er Tab* PO 20 meq DAILY TIMA Administration Senna 2 tab 03/21/18 11:15 04/09/18 20:43 Senokot Tab* PO 2 tab BEDTIME PRN Administration CONSTIPATION Vital Signs: Vital Signs Temp Pulse Resp BP Pulse Ox 97.6 F 90 18 107/75 99 04/10/18 15:46 04/10/18 15:46 04/10/18 18:19 04/10/18 15:46 04/10/18 18:10 Exam: GENERAL: no acute distress. alert and appropriate. LUNGS: clear to auscultation bilaterally. HEART: regular rate and rhythm ABDOMEN: + bowel sounds, soft, non-tender, non-distended EXTREMITIES: no edema. lacks full extension in the left elbow NEUROLOGIC: Left cranial nerve VII palsy. 5/5 motor in her right upper and lower extremity with normal sensation. Left UE 2/5 shoulder adduction. LLE motor showed 2/5 knee ext and hip extension, trace ankle PF. Sensation impaired on left side. Assessment/Plan: 1. Intracranial hemorrhage. Will need repeat MRI of her brain in 1 to 2 months ; follow up with Neurology. 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 2. F/E/N: Mechanical soft diet and thin liquids per speech.. On MgOx 400mg BID and KCL 20mEq daily. 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 Educated on ROM and stretching daily. 4. Hypertension. Continue with Norvasc. 5. Advanced Directives: She is a full code. Her son, Jt, is her surrogate decision maker. 6. DVT Prophylaxis: TEDs. Blood thinners contraindicated due to ICH 7. Estimated LOS: estimate d/c around 05/06/18. 04/11/18 16:53
[2018-04-12] MEDS: Heparin VIAL(*) 5000 UNITS/ML VIAL (FIVE THOUSAND) SUBCUT SCH ×3 (06:20→22:36)
[2018-04-12] MEDS: [UNRECOGNIZED DRUG - OTHER] PO SCH (09:04)
[2018-04-12] MEDS: amLODIPine TAB* 5 MG PO SCH (09:04)
[2018-04-12] MEDS: [UNRECOGNIZED DRUG - OTHER] PO SCH (09:05)
[2018-04-12] MEDS: [UNRECOGNIZED DRUG - OTHER] PO SCH ×2 (09:05→21:02)
[2018-04-12] MEDS: Polyethylene Glycol 3350* 17 GM PACKET PO SCH (09:07)
[2018-04-12] MEDS: Magnesium Oxide TAB* 400 MG PO SCH ×2 (09:07→21:02)
[2018-04-12] MEDS: Docusate CAP* 100 MG PO SCH ×2 (09:07→21:01)
[2018-04-12] MEDS: Potassium Chlor TAB* 20 MEQ TAB.ER PO SCH (09:07)
--- NOTE | 2018-04-12 13:19 | PN ---
Progress Note Date of Service: 04/12/18 Note: VERÓNICA DEGROOT was visited. Therapy notes read and reviewed. No complaints. She is a little bored. Current Medications: Active Medications Generic Name Dose Route Start Last Admin Trade Name Freq PRN Reason Stop Dose Admin Acetaminophen 650 mg 03/21/18 11:15 Tylenol Tab* PO Q4H PRN FEVER > 101 Al Hydrox/Mg Hydrox/Simethicone 30 ml 03/21/18 11:15 Maalox Plus* PO Q6H PRN INDIGESTION Amlodipine Besylate 5 mg 03/22/18 09:00 04/12/18 09:04 Norvasc Tab* PO 5 mg DAILY TIMA Administration Bisacodyl 10 mg 03/21/18 11:49 Dulcolax Supp* [place] DAILY PRN CONSTIPATION Calcium Carbonate 1,250 mg 03/21/18 11:52 04/01/18 09:13 Calcium Carbonate Tab* PO 1,250 mg BID PRN Administration indigestion Docusate Sodium 200 mg 03/21/18 21:00 04/12/18 09:07 Colace Cap* PO Not Given BID TIMA Heparin Sodium (Porcine) 5,000 units 03/21/18 14:00 04/12/18 06:20 Heparin Vial(*) SUBCUT 5,000 units Q8HR TIMA Administration Magnesium Oxide 400 mg 04/02/18 21:00 04/12/18 09:07 Magox 400 Tab* PO 400 mg BID TIMA Administration Pto:(Coromega [place]- 1 packet 03/22/18 09:00 04/12/18 09:05 3 1 Packet) PO 1 packet QAM TIMA Administration (Echinacea Goldseal 1 cap 03/27/18 09:00 04/12/18 09:05 1 Cap) PO 1 cap BID TIMA Administration Pto: (Advanced 2 cap 03/27/18 09:00 04/12/18 09:04 Acidophilus Cap) PO 2 cap DAILY TIMA Administration Polyethylene Glycol/Electrolytes 17 gm 03/22/18 09:00 04/12/18 09:07 Miralax* PO Not Given DAILY TIMA Potassium Chloride 20 meq 03/27/18 09:00 04/12/18 09:07 Klor Con Er Tab* PO 20 meq DAILY TIMA Administration Senna 2 tab 03/21/18 11:15 04/09/18 20:43 Senokot Tab* PO 2 tab BEDTIME PRN Administration CONSTIPATION Vital Signs: Vital Signs Temp Pulse Resp BP Pulse Ox 99.2 F 70 18 107/71 98 04/12/18 06:27 04/12/18 06:27 04/12/18 06:27 04/12/18 06:27 04/12/18 06:27 Exam: GENERAL: no acute distress. alert and appropriate. LUNGS: clear to auscultation bilaterally. HEART: regular rate and rhythm ABDOMEN: + bowel sounds, soft, non-tender, non-distended EXTREMITIES: no edema. lacks full extension in the left elbow NEUROLOGIC: Left cranial nerve VII palsy. 5/5 motor in her right upper and lower extremity with normal sensation. Left UE 2/5 shoulder adduction. LLE motor showed 2/5 knee ext and hip extension, trace ankle PF. Sensation impaired on left side. Assessment/Plan: 1. Intracranial hemorrhage. Will need repeat MRI of her brain in 1 to 2 months ; follow up with Neurology. 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 2. F/E/N: Mechanical soft diet and thin liquids per speech.. On MgOx 400mg BID and KCL 20mEq daily. 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 Educated on ROM and stretching daily. 4. Hypertension. Continue with Norvasc. 5. Advanced Directives: She is a full code. Her son, Jt, is her surrogate decision maker. 6. DVT Prophylaxis: TEDs. Blood thinners contraindicated due to ICH 7. Estimated LOS: estimate d/c around 05/06/18. 04/12/18 13:19
[2018-04-13] MEDS: Heparin VIAL(*) 5000 UNITS/ML VIAL (FIVE THOUSAND) SUBCUT SCH ×3 (05:17→21:27)
[2018-04-13] MEDS: amLODIPine TAB* 5 MG PO SCH (09:29)
[2018-04-13] MEDS: [UNRECOGNIZED DRUG - OTHER] PO SCH (09:29)
[2018-04-13] MEDS: Magnesium Oxide TAB* 400 MG PO SCH ×2 (09:30→21:26)
[2018-04-13] MEDS: Potassium Chlor TAB* 20 MEQ TAB.ER PO SCH (09:30)
[2018-04-13] MEDS: [UNRECOGNIZED DRUG - OTHER] PO SCH ×2 (09:30→21:26)
[2018-04-13] MEDS: [UNRECOGNIZED DRUG - OTHER] PO SCH (09:30)
[2018-04-13] MEDS: Docusate CAP* 100 MG PO SCH ×2 (09:40→21:26)
[2018-04-13] MEDS: Polyethylene Glycol 3350* 17 GM PACKET PO SCH (09:40)
--- NOTE | 2018-04-13 15:51 | PN ---
Progress Note Date of Service: 04/13/18 Note: VERÓNICA DEGROOT was visited. Nursing notes read and reviewed. She has no complaints. Feels ready to resume therapy Current Medications: Active Medications Generic Name Dose Route Start Last Admin Trade Name Freq PRN Reason Stop Dose Admin Acetaminophen 650 mg 03/21/18 11:15 Tylenol Tab* PO Q4H PRN FEVER > 101 Al Hydrox/Mg Hydrox/Simethicone 30 ml 03/21/18 11:15 Maalox Plus* PO Q6H PRN INDIGESTION Amlodipine Besylate 5 mg 03/22/18 09:00 04/13/18 09:29 Norvasc Tab* PO 5 mg DAILY TIMA Administration Bisacodyl 10 mg 03/21/18 11:49 Dulcolax Supp* [place] DAILY PRN CONSTIPATION Calcium Carbonate 1,250 mg 03/21/18 11:52 04/01/18 09:13 Calcium Carbonate Tab* PO 1,250 mg BID PRN Administration indigestion Docusate Sodium 200 mg 03/21/18 21:00 04/13/18 09:40 Colace Cap* PO Not Given BID TIMA Heparin Sodium (Porcine) 5,000 units 03/21/18 14:00 04/13/18 14:20 Heparin Vial(*) SUBCUT 5,000 units Q8HR TIMA Administration Magnesium Oxide 400 mg 04/02/18 21:00 04/13/18 09:30 Magox 400 Tab* PO 400 mg BID TIMA Administration Pto:(Coromega [place]- 1 packet 03/22/18 09:00 04/13/18 09:30 3 1 Packet) PO 1 packet QAM TIMA Administration (Echinacea Goldseal 1 cap 03/27/18 09:00 04/13/18 09:30 1 Cap) PO 1 cap BID TIMA Administration Pto: (Advanced 2 cap 03/27/18 09:00 04/13/18 09:29 Acidophilus Cap) PO 2 cap DAILY TIMA Administration Polyethylene Glycol/Electrolytes 17 gm 03/22/18 09:00 04/13/18 09:40 Miralax* PO Not Given DAILY TIMA Potassium Chloride 20 meq 03/27/18 09:00 04/13/18 09:30 Klor Con Er Tab* PO 20 meq DAILY TIMA Administration Senna 2 tab 03/21/18 11:15 04/09/18 20:43 Senokot Tab* PO 2 tab BEDTIME PRN Administration CONSTIPATION Vital Signs: Vital Signs Temp Pulse Resp BP Pulse Ox 99.7 F 83 18 105/71 100 04/13/18 15:11 04/13/18 15:11 04/13/18 15:11 04/13/18 15:11 04/13/18 15:11 Exam: GENERAL: no acute distress. alert and appropriate. LUNGS: clear to auscultation bilaterally. HEART: regular rate and rhythm ABDOMEN: + bowel sounds, soft, non-tender, non-distended EXTREMITIES: no edema. lacks full extension in the left elbow NEUROLOGIC: Left cranial nerve VII palsy. 5/5 motor in her right upper and lower extremity with normal sensation. Left UE 2/5 shoulder adduction. LLE motor showed 2/5 knee ext and hip extension, trace ankle PF. Sensation impaired on left side. Assessment/Plan: 1. Intracranial hemorrhage. Will need repeat MRI of her brain in 1 to 2 months ; follow up with Neurology. 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 2. F/E/N: Mechanical soft diet and thin liquids per speech.. On MgOx 400mg BID and KCL 20mEq daily. 3. 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 Educated on ROM and stretching daily. 4. Hypertension. Continue with Norvasc. 5. Advanced Directives: She is a full code. Her son, Jt, is her surrogate decision maker. 6. DVT Prophylaxis: TEDs. Blood thinners contraindicated due to ICH 7. Estimated LOS: estimate d/c around 05/06/18. 04/13/18 15:52
[2018-04-14] MEDS: Heparin VIAL(*) 5000 UNITS/ML VIAL (FIVE THOUSAND) SUBCUT SCH ×3 (06:10→21:41)
[2018-04-14] MEDS: Potassium Chlor TAB* 20 MEQ TAB.ER PO SCH (07:41)
[2018-04-14] MEDS: amLODIPine TAB* 5 MG PO SCH (07:41)
[2018-04-14] MEDS: Magnesium Oxide TAB* 400 MG PO SCH ×2 (07:42→21:39)
[2018-04-14] MEDS: [UNRECOGNIZED DRUG - OTHER] PO SCH (07:42)
[2018-04-14] MEDS: [UNRECOGNIZED DRUG - OTHER] PO SCH ×2 (07:43→21:39)
[2018-04-14] MEDS: [UNRECOGNIZED DRUG - OTHER] PO SCH (07:43)
[2018-04-14] MEDS: Docusate CAP* 100 MG PO SCH ×2 (07:44→21:43)
[2018-04-14] MEDS: Polyethylene Glycol 3350* 17 GM PACKET PO SCH (07:44)
--- NOTE | 2018-04-14 17:42 | PN ---
Progress Note Date of Service: 04/14/18 Note: VERÓNICA DEGROOT was visited. Therapy notes read and reviewed. She was able to walk with assistance in the parallel bars today. Better balance overall. AFO has helped Current Medications: Active Medications Generic Name Dose Route Start Last Admin Trade Name Freq PRN Reason Stop Dose Admin Acetaminophen 650 mg 03/21/18 11:15 Tylenol Tab* PO Q4H PRN FEVER > 101 Al Hydrox/Mg Hydrox/Simethicone 30 ml 03/21/18 11:15 Maalox Plus* PO Q6H PRN INDIGESTION Amlodipine Besylate 5 mg 03/22/18 09:00 04/14/18 07:41 Norvasc Tab* PO 5 mg DAILY TIMA Administration Bisacodyl 10 mg 03/21/18 11:49 Dulcolax Supp* [place] DAILY PRN CONSTIPATION Calcium Carbonate 1,250 mg 03/21/18 11:52 04/01/18 09:13 Calcium Carbonate Tab* PO 1,250 mg BID PRN Administration indigestion Docusate Sodium 200 mg 03/21/18 21:00 04/14/18 07:44 Colace Cap* PO Not Given BID TIMA Heparin Sodium (Porcine) 5,000 units 03/21/18 14:00 04/14/18 15:50 Heparin Vial(*) SUBCUT 5,000 units Q8HR TIMA Administration Magnesium Oxide 400 mg 04/02/18 21:00 04/14/18 07:42 Magox 400 Tab* PO 400 mg BID TIMA Administration Pto:(Coromega [place]- 1 packet 03/22/18 09:00 04/14/18 07:42 3 1 Packet) PO 1 packet QAM TIMA Administration (Echinacea Goldseal 1 cap 03/27/18 09:00 04/14/18 07:43 1 Cap) PO 1 cap BID TIMA Administration Pto: (Advanced 2 cap 03/27/18 09:00 04/14/18 07:43 Acidophilus Cap) PO 2 cap DAILY TIMA Administration Polyethylene Glycol/Electrolytes 17 gm 03/22/18 09:00 04/14/18 07:44 Miralax* PO Not Given DAILY TIMA Potassium Chloride 20 meq 03/27/18 09:00 04/14/18 07:41 Klor Con Er Tab* PO 20 meq DAILY TIMA Administration Senna 2 tab 03/21/18 11:15 04/09/18 20:43 Senokot Tab* PO 2 tab BEDTIME PRN Administration CONSTIPATION Vital Signs: Vital Signs Temp Pulse Resp BP Pulse Ox 98.2 F 77 16 97/70 96 04/14/18 16:02 04/14/18 16:02 04/14/18 16:02 04/14/18 16:02 04/14/18 16:02 Exam: GENERAL: no acute distress. alert and appropriate. LUNGS: clear to auscultation bilaterally. HEART: regular rate and rhythm ABDOMEN: + bowel sounds, soft, non-tender, non-distended EXTREMITIES: no edema. lacks full extension in the left elbow NEUROLOGIC: Left cranial nerve VII palsy. 5/5 motor in her right upper and lower extremity with normal sensation. Left UE 2/5 shoulder adduction. LLE motor showed 2/5 knee ext and hip extension, trace ankle PF. Sensation impaired on left side. Assessment/Plan: 1. Intracranial hemorrhage. Will need repeat MRI of her brain in several weeks ; follow up with Neurology. 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 2. F/E/N: Mechanical soft diet and thin liquids per speech.. On MgOx 400mg BID and KCL 20mEq daily. 3. 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 Educated on ROM and stretching daily. 4. Hypertension. Continue with Norvasc. 5. Advanced Directives: She is a full code. Her son, Jt, is her surrogate decision maker. 6. DVT Prophylaxis: TEDs. Blood thinners contraindicated due to ICH 7. Estimated LOS: estimate d/c around 05/06/18. 04/14/18 17:42
[2018-04-15] MEDS: Heparin VIAL(*) 5000 UNITS/ML VIAL (FIVE THOUSAND) SUBCUT SCH ×3 (06:25→22:28)
[2018-04-15] MEDS: [UNRECOGNIZED DRUG - OTHER] PO SCH (08:25)
[2018-04-15] MEDS: amLODIPine TAB* 5 MG PO SCH (08:27)
[2018-04-15] MEDS: Potassium Chlor TAB* 20 MEQ TAB.ER PO SCH (08:27)
[2018-04-15] MEDS: Magnesium Oxide TAB* 400 MG PO SCH ×2 (08:27→22:28)
[2018-04-15] MEDS: Docusate CAP* 100 MG PO SCH ×2 (08:27→22:25)
[2018-04-15] MEDS: [UNRECOGNIZED DRUG - OTHER] PO SCH ×2 (08:29→22:29)
[2018-04-15] MEDS: [UNRECOGNIZED DRUG - OTHER] PO SCH (08:29)
[2018-04-15] MEDS: Polyethylene Glycol 3350* 17 GM PACKET PO SCH (08:30)
--- NOTE | 2018-04-15 11:57 | PN ---
Progress Note Date of Service: 04/15/18 Note: VERÓNICA DEGROOT was visited. Therapy notes read and reviewed. She will be discussed in interdisciplinary team rounds later. She was able to stand today for a while with minimal assist Current Medications: Active Medications Generic Name Dose Route Start Last Admin Trade Name Freq PRN Reason Stop Dose Admin Acetaminophen 650 mg 03/21/18 11:15 Tylenol Tab* PO Q4H PRN FEVER > 101 Al Hydrox/Mg Hydrox/Simethicone 30 ml 03/21/18 11:15 Maalox Plus* PO Q6H PRN INDIGESTION Amlodipine Besylate 5 mg 03/22/18 09:00 04/15/18 08:27 Norvasc Tab* PO 5 mg DAILY TIMA Administration Bisacodyl 10 mg 03/21/18 11:49 Dulcolax Supp* [place] DAILY PRN CONSTIPATION Calcium Carbonate 1,250 mg 03/21/18 11:52 04/01/18 09:13 Calcium Carbonate Tab* PO 1,250 mg BID PRN Administration indigestion Docusate Sodium 200 mg 03/21/18 21:00 04/15/18 08:27 Colace Cap* PO 100 mg BID TIMA Administration Heparin Sodium (Porcine) 5,000 units 03/21/18 14:00 04/15/18 06:25 Heparin Vial(*) SUBCUT 5,000 units Q8HR TIMA Administration Magnesium Oxide 400 mg 04/02/18 21:00 04/15/18 08:27 Magox 400 Tab* PO 400 mg BID TIMA Administration Pto:(Coromega [place]- 1 packet 03/22/18 09:00 04/15/18 08:25 3 1 Packet) PO 1 packet QAM TIMA Administration (Echinacea Goldseal 1 cap 03/27/18 09:00 04/15/18 08:29 1 Cap) PO 1 cap BID TIMA Administration Pto: (Advanced 2 cap 03/27/18 09:00 04/15/18 08:29 Acidophilus Cap) PO 2 cap DAILY TIMA Administration Polyethylene Glycol/Electrolytes 17 gm 03/22/18 09:00 04/15/18 08:30 Miralax* PO Not Given DAILY TIMA Potassium Chloride 20 meq 03/27/18 09:00 04/15/18 08:27 Klor Con Er Tab* PO 20 meq DAILY TIMA Administration Senna 2 tab 03/21/18 11:15 04/09/18 20:43 Senokot Tab* PO 2 tab BEDTIME PRN Administration CONSTIPATION Vital Signs: Vital Signs Temp Pulse Resp BP Pulse Ox 97.9 F 64 20 118/74 100 04/15/18 06:28 04/15/18 06:28 04/15/18 06:28 04/15/18 06:28 04/15/18 06:28 Exam: GENERAL: no acute distress. alert and appropriate. LUNGS: clear to auscultation bilaterally. HEART: regular rate and rhythm ABDOMEN: + bowel sounds, soft, non-tender, non-distended EXTREMITIES: no edema. lacks full extension in the left elbow NEUROLOGIC: Left cranial nerve VII palsy. 5/5 motor in her right upper and lower extremity with normal sensation. Left UE 2/5 shoulder adduction. LLE motor showed 3/5 knee ext and hip extension, trace ankle PF. Sensation impaired on left side. Assessment/Plan: 1. Intracranial hemorrhage. Will need repeat MRI of her brain in several weeks ; follow up with Neurology. 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 2. F/E/N: Mechanical soft diet and thin liquids per speech.. On MgOx 400mg BID and KCL 20mEq daily. 3. 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 Educated on ROM and stretching daily. 4. Hypertension. Continue with Norvasc. 5. Advanced Directives: She is a full code. Her son, Jt, is her surrogate decision maker. 6. DVT Prophylaxis: TEDs. Blood thinners contraindicated due to ICH 7. Estimated LOS: estimate d/c around 05/06/18. 04/15/18 11:57
--- NOTE | 2018-04-15 12:59 | PMRUTEAM ---
PMRU: Team Meeting Current Status: Nursing: Current Status Skin Deviations [Abdomen] Bruise Skin Deviations [Coccyx] Other Skin Deviations [Right Groin] Previous Access Point Skin Deviation Description [ unchanged Abdomen] Skin Deviation Description [ slightly reddened Coccyx] Skin Deviation Description [ healed Right Groin] Bladder Current Status voiding Bowel Current Status bowel meds continue, pt did decline miralax Nutrition Current Status appetite good Medication Current Status medications reviewed, pt very aware of regime Physical Therapy: Current Status Bed Mobility Assistance Not Tested Transfer Moblility Assistance Not Tested Transfer/Bed Mobility None Recommended Devices Ambulation Assistance Mod Assist Ambulation Assistive Devices Railings Number of Feet Patient 3' x 3 in // bars Ambulated Occupational Therapy: Current Status Upper Body Dressing Min Assist Lower Body Dressing Mod Assist Lower Body Dressing Progress rolling in bed or standing at bedrail Bathing Mod Assist Bathing Progress in shower w/c today Toileting Mod Assist Toileting Progress rolling in bed or standing at bedrail Toilet Transfer Mod Assist Toilet Transfer Progress SPT off of commode Shower Transfer Total Assist Shower Transfer Progress not attempted showers in w/c Eating Independent Eating Progress set up Rec Therapy: Current Status Summary of Assessment and RT assessment complete and pt. is aware of Clinical Impression services. Pt. has been actively engaged in leisure activities and sessions while on the unit. Treatment Goals Patient will engage in recreation and leisure activities while on the unit. Treatment Plan Provide and encourage involvement in RT services. Social Work: Current Status Discharge Plan return home with home care svs and family support Potential for Family Training pt's friend, Amirah is involved and supportive Anticipated Discharge Home Destination Discharge With home care svs and family support Nutrition: Current Status Monitoring Continues to eat well (100%) and meeting needs. Continues with KCl supplementation and K remaining WNL. Mg supplementation continues with some improvement (1.3->1.4->1.5). No skin breakdown noted. Tolerating mechanical soft texture (thin liquids) well. No changes in intervention. Speech: Current Status Assessment Patient is progressing as expected Speech Current Status Goal 1 Mild-moderate impairment Speech Goal 2 Current Status Moderate impairment Speech Goal 3 Current Status Moderate impairment Goals: Physical Therapy: Initial Goals Bed Mobility Assistance Independent Transfer Mobility Assistance Independent Transfer/Bed Mobility Manoj Walker Recommended Devices Ambulation Independent Ambulation Recommended Devices Manoj Walker Ambulation Distance 50 Wheelchair Propulsion Ability Independent Stairs Assistance Independent Stair Recommended Devices One Rail Number of Stairs 5 Physical Therapy: Updated Goals Transfer/Bed Mobility Lisa Lift Recommended Devices Occupational Therapy: Initial Goals Goals to be Completed in (Days 4-6 weeks ) Upper Body Bathing Routine Modified Independent with Lower Body Bathing Routine Modified Independent with Upper Body Dressing Routine Modified Independent with Lower Body Dressing Routine Modified Independent with Toilet Hygeine and Clothing Modified Independent with Management Routine Toilet Transfer Routine Modified Independent with Tub Transfer Routine Supervision/Set Up Functional Transfers for ADL Modified Independent with Grooming Routine Modified Independent with Feeding Routine Modified Independent with Nursing: Goals Bladder Goal indep Bowel Goal indep Nutrition Goal indep Medication Goal indep Nutrition: Goals Intervention Goals 1. Pt will tolerate least-restrictive diet texture without s/sx difficulty chewing 2. Intake will remain >75% of meals 3. Intake will be adequate to maintain stable wt 4. Serum magnesium will return to normal ranges w/ daily supplementation Speech: Goals Speech Goal 1 Comprehension Speech Evaluation Status Goal Mild-moderate impairment 1 Speech Current Status Goal 1 Mild-moderate impairment Goal 1 Comments Long-Term Goal: Pt will use compensatory strategies to demonstrate comprehension of paragraph length verbal and written information of moderate complexity, 100% accuracy, given minimal extra time, Independently. Short-Term Goal: Pt will use compensatory strategies to attend to information in the Left visual field and demonstrate comprehension of paragraph length verbal and written information of moderate complexity, 95% accuracy, given moderate extra time, Independently. Status: Progressing as expected. FIRST OFFICER presented printed two-column poem in light font, and directed patient to read and summarize every few lines. Patient used strategies to start at the left edge beginning of llines, and required moderate cueing to locate next lines after stopping to sumarize. Speech Goal 2 Problem Solving Speech Goal 2 Evaluation Moderate impairment Status Speech Goal 2 Current Status Moderate impairment Speech Goal 2 Comments Long-Term Goal: Patient will use compensatory strategies to solve moderately complex routine problems, with 100% accuracy, Independently, for ADLs such as shopping, time and money management. Short-Term Goal: Patient will use compensatory strategies to attend to information in the Left visual field to solve moderately complex problems, with 90% accuracy, given Minimal skilled instruction and cueing. Status: Progressing as expected. Patient completed directions by drawing and writing as indicated by rereading each direction once to memorize, and minimal checking less 10% of directions after she startedthe actions. Spatial relations were accurate. Speech Goal 3 Motor speech Speech Goal 3 Evaluation Moderate impairment Status Speech Goal 3 Current Status Moderate impairment Speech Goal 3 Comments Spar Cap Beveler Goal: Patient will demonstrate improvement in range and rate of motion of her Left side labial retractors, elevators and depressors, to 90% of Right side, to achieve functional ability to eat and drink without spillage, speak with minimal distortion, and make appropriate facial expressions. Short Term Goal: Patient will demonstrate improvement in range and rate of motion of her Left side labial retractors, elevators and depressors, to 90% of Right side, achieve functional ability to eat and drink without spillage, speak with minimal distortion, and make appropriate facial expressions, given Minimal cueing. Status: Progressing as expected. FIRST OFFICER directed patient to compete oral-facial exercises, and modified instruction to increase effort and target range. Patient isolated lip retraction and achieve 90% symmetrical smile, and 70% symmetrical frown. FIRST OFFICER provided instruction to direct patient to play harmonica with adequate lip seal to prevent linkage. Given moderate instruction,cueing and feedback, patient was able to block holes with her tongue to change chords to single notes in 30% of attempts. FIRST OFFICER modifed instruction by providing a hands-free harmonica yeung. Social Work: Goals Discharge Plan return home with home care svs and family support Potential for Family Training pt's friend, Amirah is involved and supportive Anticipated Discharge Home Destination Discharge With home care svs and family support Care Plan: Care Plan ADL's - Improve/Maintain Start: 03/23/18 00:21 Freq: DAILY Status: Active Target: Protocol: Activity Type Activity Date Activity User E-Sign Co-Sign Detail Recorded Client Recorded Date Recorded By Document 04/14/18 14:47 [id number] 04/14/18 14:47 [id number] 04/14/18 14:47 PMRU Outcome: ADL's/ADL Transfers Orders/Interventions Occupational Therapy Evaluation & Treatment Communication Tool in Patient Room Patient to receive OT 5x/wk for 60-120 Therex min/day Self Care Management Group Therapy Neuromuscular ReEducation UE/LE ADL's with Assist Yes: mod I ADL Transfers with Assist Yes: mod I Toileting: Transfers,Clothing Management Yes: mod I ,Hygeine w/Assist Progression Toward Outcome/Goals Progressing Outcome/Goals Met Pt demonstrates significantly improved dynamic and static sitting balance as well as improved L side awareness. Pt SPT required less cues but increased physical A- consistently Mod A today. sublux of L shoulder is 1 finger width Pt requires fewer cues for dressing Pt declined many of the activities offered during OT today including showering, sponge bath, and standing. Increased tone observed in LUE with internal rotation of shoulder, elbow flexion, and wrist flexion Pt experienced pain when procedure writer brought elbow into extension and wrist into neutral. [ End ] Communication-Improve/Maintain Start: 03/23/18 00:21 Freq: DAILY Status: Active Target: Protocol: Activity Type Activity Date Activity User E-Sign Co-Sign Detail Recorded Client Recorded Date Recorded By Document 04/15/18 03:07 [id number] 04/15/18 03:07 [id number] 04/15/18 03:07 PMRU Outcome: Communication/Cognitive Status Outcome/Goals Makes Needs Known Effectively Other Outcomes/Goals Comprehension Long-Term Goal: Pt will use compensatory strategies to demonstrate comprehension of paragraph length verbal and written information of moderate complexity, 100 % accuracy, given minimal extra time, Independently. Short-Term Goal : Pt will use compensatory strategies to attend to information in the Left visual field and demonstrate comprehension of paragraph length verbal and written information of moderate complexity, 95% accuracy, given moderate extra time, Independently. Status: Progressing as expected. Long-Term Goal: Patient will use compensatory strategies to solve moderately complex routine problems, with 100% accuracy, Independently, for ADLs such as shopping, time and money management. Short-Term Goal : Patient will use compensatory strategies to attend to information in the Left visual field to solve moderately complex problems, with 90% accuracy, given Minimal skilled instruction and cueing. Status: Progressing as expected. Motor Speech Long-Term Goal: Patient will demonstrate improvement in range and rate of motion of her Left side labial retractors, elevators and depressors, to 90% of Right side, to achieve functional ability to eat and drink without spillage, speak with minimal distortion, and make appropriate facial expressions. Short Term Goal : Patient will demonstrate improvement in range and rate of motion of her Left side labial retractors, elevators and depressors, to 90% of Right side, achieve functional ability to eat and drink without spillage, speak with minimal distortion, and make appropriate facial expressions, given Minimal cueing. Status: Progressing as expected. Progression Toward Outcomes/Goals Progressing Discharge Planning - Improve/Maintain Start: 03/23/18 00:21 Freq: DAILY Status: Active Target: Protocol: Activity Type Activity Date Activity User E-Sign Co-Sign Detail Recorded Client Recorded Date Recorded By Document 04/15/18 03:07 [id number] 04/15/18 03:07 [id number] 04/15/18 03:07 PMRU Outcome: Discharge Planning Update Patient Family No Outcome/Goals Demonstrates Understanding of Discharge Plan Progression Toward Outcome/Goals Progressing Education-Improve/Maintain Start: 03/23/18 00:21 Freq: QSHIFT Status: Active Target: Protocol: Activity Type Activity Date Activity User E-Sign Co-Sign Detail Recorded Client Recorded Date Recorded By Document 04/15/18 03:07 [id number] 04/15/18 03:07 [id number] 04/15/18 03:07 PMRU Outcome: Education Outcome/Goals Encourage Questions Progression Toward Outcome/Goals Progressing /GI-Improve/Maintain Start: 03/23/18 00:21 Freq: QSHIFT Status: Active Target: Protocol: Activity Type Activity Date Activity User E-Sign Co-Sign Detail Recorded Client Recorded Date Recorded By Document 04/15/18 03:07 [id number] 04/15/18 03:07 [id number] 04/15/18 03:07 PMRU Outcome: Genitourinary/ Gastrointestinal Genitourinary- Outcome/Goals Maintain/ Achieve Urinary Continence Gastrointestinal-Outcome/Goals Maintain/ Achieve Bowel Regularity in Accordance with Pt's Baseline Prevent Constipation Laxatives as Ordered Progression Toward Outcome/Goals - Progressing Progression Toward Outcome/Goals - GI Progressing Mobility- Improve/Maintain Start: 03/21/18 17:34 Freq: DAILY Status: Active Target: Protocol: Activity Type Activity Date Activity User E-Sign Co-Sign Detail Recorded Client Recorded Date Recorded By Document 03/26/18 16:51 [id number] 03/26/18 16:51 [id number] 03/26/18 16:51 PMRU Outcome: Mobility Physical Therapy Evaluation and Yes Treatment Activity OOB with Assistance Yes WBAT Yes Device Yes Assistance Yes Patient to be seen 5x/wk for 60-120 min/ Therex day for: Mobility Training Gait Training W/C Mobility Balance Outcome/Goals Maintain/ Achieve Baseline Mobility Status Improve Mobility Status Demonstrates Proper Use of Assistive Devices Free from Complications of Immobility Progression Toward Outcome/Goals Progressing Outcome/Goals Met Comment improved ability to extend LLE against gravity Bed Mobility Yes: independnet Transfers Yes: independent with manoj walker Gait x ft Yes: independent with hemiwalker 50' W/C Mobility x ft Yes: independent with RU/LE 300' Up/Down Stairs Yes: inddependent up /down 5 stairs. Neurological- Improve/Maintain Start: 03/23/18 00:21 Freq: QSHIFT Status: Active Target: Protocol: Activity Type Activity Date Activity User E-Sign Co-Sign Detail Recorded Client Recorded Date Recorded By Document 04/15/18 03:07 [id number] [email or web address] 04/15/18 03:07 [id number] 04/15/18 03:07 PMRU Outcome: Neurological Weakness/Aphasia Weakness Left Side Weakness/Aphasia Comment left sided weakness- cva Outcome/Goals Maintain/ Achieve Baseline Neurological Status Improve Neurological Status Prevent Avoidable Neurological Decline Maintain/ Improve Strength/ROM Progression Toward Outcome/Goals Progressing Pain/Comfort- Improve/Maintain Start: 03/23/18 00:21 Freq: QSHIFT Status: Complete Target: Protocol: Activity Type Activity Date Activity User E-Sign Co-Sign Detail Recorded Client Recorded Date Recorded By Document 04/10/18 10:06 [id number] 04/10/18 10:37 [id number] 04/10/18 10:06 PMRU Outcome: Pain/Comfort Outcome/Goals Demonstrates Knowledge and Use of Available Comfort Measures Achieves Acceptable Comfort/Pain Level as Determined by Patient/Condit Maintain Comfort Level Allowing Patient to Fully Participate in Rehab Progression Toward Outcome/Goals Progressing Outcome/Goals Met Comment no c/o pain verbalized thus far. Safety- Improve/Maintain Start: 03/23/18 00:21 Freq: QSHIFT Status: Active Target: Protocol: Activity Type Activity Date Activity User E-Sign Co-Sign Detail Recorded Client Recorded Date Recorded By Document 04/15/18 03:07 [id number] [email or web address] 04/15/18 03:07 [id number] 04/15/18 03:07 PMRU Outcome: Safety Outcome/Goals Remain Free of Injury or Harm Cooperates with Safety Measures for Least Restrictive Environment Prevent Falls/ Injury Progression Toward Outcome/Goals Progressing Outcome/Goals Met Comment BA armed Skin- Improve/Maintain Start: 03/23/18 00:21 Freq: QSHIFT Status: Active Target: Protocol: Activity Type Activity Date Activity User E-Sign Co-Sign Detail Recorded Client Recorded Date Recorded By Document 04/15/18 03:07 [id number] 04/15/18 03:07 [id number] 04/15/18 03:07 PMRU Outcome: Skin Skin Risk Level Medium Skin Orders Multipodus Boot Turn/Position q2hr While in Bed Outcome/Goals Maintain/ Improve Skin Intergrity Progression Toward Outcome/Goals Progressing Medicine Note: Length of Stay: 21 days Anticipated Discharge Destination: Home Tentative Discharge Date: 05/06/18 Discharged to: Home
[2018-04-16] MEDS: Heparin VIAL(*) 5000 UNITS/ML VIAL (FIVE THOUSAND) SUBCUT SCH ×3 (05:41→21:33)
[2018-04-16 06:54] LABS: ABS Basophils 0.2 10^3/ul (0-0.2); ABS Eosinophils 0.3 10^3/ul (0-0.6); ABS Lymphocytes 1.9 10^3/ul (1.0-4.8); ABS Monocytes 0.9 10^3/ul (0-0.8); ABS Neutrophils 4.3 10^3/ul (1.5-7.7); ABS Nucleated RBC 0 10^3/ul; Eosinophil % 4.3 % (0-6); Hematocrit 41 % (35-47); Hemoglobin 13.9 g/dl (12.0-16.0); Lymphocyte % 24.8 % (25-47); Mean Corpuscular HGB Conc 34 g/dl (31-36); Mean Corpuscular Hemoglobin 35 pg (27-31); Mean Corpuscular Volume 102 fL (80-97); Mean Platelet Volume 7.6 um3 (7.4-10.4); Nucleated Red Blood Cells % 0; Platelet Count 375 10^3/ul (150-450); Red Blood Count 4.01 10^6/ul (4.00-5.40); Red Cell Distribution Width 13 % (10.5-15); White Blood Count 7.6 10^3/ul (3.5-10.8)
[2018-04-16] MEDS: [UNRECOGNIZED DRUG - OTHER] PO SCH (07:25)
[2018-04-16] MEDS: [UNRECOGNIZED DRUG - OTHER] PO SCH (07:25)
[2018-04-16] MEDS: [UNRECOGNIZED DRUG - OTHER] PO SCH ×2 (07:26→20:38)
[2018-04-16] MEDS: Docusate CAP* 100 MG PO SCH ×2 (07:26→20:35)
[2018-04-16] MEDS: Potassium Chlor TAB* 20 MEQ TAB.ER PO SCH (07:26)
[2018-04-16] MEDS: Polyethylene Glycol 3350* 17 GM PACKET PO SCH (07:27)
[2018-04-16] MEDS: Magnesium Oxide TAB* 400 MG PO SCH ×2 (07:27→20:37)
[2018-04-16] MEDS: amLODIPine TAB* 5 MG PO SCH (07:27)
[2018-04-16 08:01] LABS: EGFR Non-African American 97.2 (>60)
--- NOTE | 2018-04-16 20:15 | PN ---
Progress Note Date of Service: 04/16/18 Note: VERÓNICA DEGROOT was visited. Therapy notes read and reviewed. Had an unwitnessed fall out of wheelchair at 1920. She was painting rocks and leaned forward to put the top on and slid out of wheelchair onto floor. Denies head trauma. May have hit left elbow. Lifted back into bed. Alert, mental status at baseline. Denies pain anywhere Current Medications: Active Medications Generic Name Dose Route Start Last Admin Trade Name Freq PRN Reason Stop Dose Admin Acetaminophen 650 mg 03/21/18 11:15 Tylenol Tab* PO Q4H PRN FEVER > 101 Al Hydrox/Mg Hydrox/Simethicone 30 ml 03/21/18 11:15 Maalox Plus* PO Q6H PRN INDIGESTION Amlodipine Besylate 5 mg 03/22/18 09:00 04/16/18 07:27 Norvasc Tab* PO 5 mg DAILY TIMA Administration Bisacodyl 10 mg 03/21/18 11:49 Dulcolax Supp* [place] DAILY PRN CONSTIPATION Calcium Carbonate 1,250 mg 03/21/18 11:52 04/01/18 09:13 Calcium Carbonate Tab* PO 1,250 mg BID PRN Administration indigestion Docusate Sodium 200 mg 03/21/18 21:00 04/16/18 07:26 Colace Cap* PO 100 mg BID TIMA Administration Heparin Sodium (Porcine) 5,000 units 03/21/18 14:00 04/16/18 13:05 Heparin Vial(*) SUBCUT 5,000 units Q8HR TIMA Administration Magnesium Oxide 400 mg 04/02/18 21:00 04/16/18 07:27 Magox 400 Tab* PO 400 mg BID TIMA Administration Pto:(Coromega [place]- 1 packet 03/22/18 09:00 04/16/18 07:25 3 1 Packet) PO 1 packet QAM TIMA Administration (Echinacea Goldseal 1 cap 03/27/18 09:00 04/16/18 07:26 1 Cap) PO 1 cap BID TIMA Administration Pto: (Advanced 2 cap 03/27/18 09:00 04/16/18 07:25 Acidophilus Cap) PO 2 cap DAILY TIMA Administration Polyethylene Glycol/Electrolytes 17 gm 03/22/18 09:00 04/16/18 07:27 Miralax* PO Not Given DAILY TIMA Potassium Chloride 20 meq 03/27/18 09:00 04/16/18 07:26 Klor Con Er Tab* PO 20 meq DAILY TIMA Administration Senna 2 tab 03/21/18 11:15 04/09/18 20:43 Senokot Tab* PO 2 tab BEDTIME PRN Administration CONSTIPATION Vital Signs: Vital Signs Temp Pulse Resp BP Pulse Ox 98.6 F 84 16 126/88 99 04/16/18 16:20 04/16/18 16:20 04/16/18 16:20 04/16/18 16:20 04/16/18 16:20 Lab Results: Laboratory Results - last 24 hr 04/16/18 04/16/18 06:36 06:36 WBC 7.6 RBC 4.01 Hgb 13.9 Hct 41 MCV 102 H MCH 35 H MCHC 34 RDW 13 Plt Count 375 MPV 7.6 Neut % (Auto) 56.8 Lymph % (Auto) 24.8 L [place] % (Auto) 12.0 H Eos % (Auto) 4.3 Baso % (Auto) 2.1 H Absolute Neuts (auto) 4.3 Absolute Lymphs (auto) 1.9 Absolute Monos (auto) 0.9 H Absolute Eos (auto) 0.3 Absolute Basos (auto) 0.2 Absolute Nucleated RBC 0 Nucleated RBC % 0 Sodium 139 Potassium 4.2 Chloride 102 Carbon Dioxide 30 Anion Gap 7 BUN 8 Creatinine 0.62 Est GFR ( Amer) 117.6 Est GFR (Non-Af Amer) 97.2 BUN/Creatinine Ratio 12.9 Glucose 85 Calcium 10.2 Magnesium 1.6 L Total Bilirubin 0.40 AST 33 ALT 41 Alkaline Phosphatase 46 Total Protein 6.7 Albumin 3.9 Globulin 2.8 Albumin/Globulin Ratio 1.4 Exam: GENERAL: no acute distress. alert and appropriate. LUNGS: clear to auscultation bilaterally. HEART: regular rate and rhythm ABDOMEN: + bowel sounds, soft, non-tender, non-distended EXTREMITIES: no edema. lacks full extension in the left elbow NEUROLOGIC: Left cranial nerve VII palsy. 5/5 motor in her right upper and lower extremity with normal sensation. Left UE 2/5 shoulder adduction. LLE motor showed 3/5 knee ext and hip extension, trace ankle PF. Sensation impaired on left side. Assessment/Plan: 1. Intracranial hemorrhage. Will need repeat MRI of her brain in several weeks ; follow up with Neurology. 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 2. F/E/N: Mechanical soft diet and thin liquids per speech.. On MgOx 400mg BID and KCL 20mEq daily. 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 Educated on ROM and stretching daily. 4. Hypertension. Continue with Norvasc. 5. Advanced Directives: She is a full code. Her son, Jt, is her surrogate decision maker. 6. DVT Prophylaxis: TEDs. Blood thinners contraindicated due to ICH 7. Estimated LOS: estimate d/c around 05/06/18. 04/16/18 20:15 04/16/18 20:16
[2018-04-17] MEDS: Heparin VIAL(*) 5000 UNITS/ML VIAL (FIVE THOUSAND) SUBCUT SCH ×3 (05:51→21:26)
[2018-04-17] MEDS: Polyethylene Glycol 3350* 17 GM PACKET PO SCH (07:52)
[2018-04-17] MEDS: [UNRECOGNIZED DRUG - OTHER] PO SCH (08:15)
[2018-04-17] MEDS: amLODIPine TAB* 5 MG PO SCH (08:15)
[2018-04-17] MEDS: Potassium Chlor TAB* 20 MEQ TAB.ER PO SCH (08:15)
[2018-04-17] MEDS: Magnesium Oxide TAB* 400 MG PO SCH ×2 (08:15→21:26)
[2018-04-17] MEDS: Docusate CAP* 100 MG PO SCH ×2 (08:15→21:26)
[2018-04-17] MEDS: [UNRECOGNIZED DRUG - OTHER] PO SCH ×2 (08:16→21:25)
[2018-04-17] MEDS: [UNRECOGNIZED DRUG - OTHER] PO SCH (08:17)
--- NOTE | 2018-04-17 18:31 | PN ---
Progress Note Date of Service: 04/17/18 Note: VERÓNICA DEGROOT was visited. Therapy notes read and reviewed. No complaints of pain, after yesterday's fall. No obvious sequelae. In good spirits. Current Medications: Active Medications Generic Name Dose Route Start Last Admin Trade Name Freq PRN Reason Stop Dose Admin Acetaminophen 650 mg 03/21/18 11:15 Tylenol Tab* PO Q4H PRN FEVER > 101 Al Hydrox/Mg Hydrox/Simethicone 30 ml 03/21/18 11:15 Maalox Plus* PO Q6H PRN INDIGESTION Amlodipine Besylate 5 mg 03/22/18 09:00 04/17/18 08:15 Norvasc Tab* PO 5 mg DAILY TIMA Administration Bisacodyl 10 mg 03/21/18 11:49 Dulcolax Supp* [place] DAILY PRN CONSTIPATION Calcium Carbonate 1,250 mg 03/21/18 11:52 04/01/18 09:13 Calcium Carbonate Tab* PO 1,250 mg BID PRN Administration indigestion Docusate Sodium 200 mg 03/21/18 21:00 04/17/18 08:15 Colace Cap* PO 100 mg BID TIMA Administration Heparin Sodium (Porcine) 5,000 units 03/21/18 14:00 04/17/18 15:51 Heparin Vial(*) SUBCUT 5,000 units Q8HR TIMA Administration Magnesium Oxide 400 mg 04/02/18 21:00 04/17/18 08:15 Magox 400 Tab* PO 400 mg BID TIMA Administration Pto:(Coromega [place]- 1 packet 03/22/18 09:00 04/17/18 08:17 3 1 Packet) PO Not Given QAM TIMA (Echinacea Goldseal 1 cap 03/27/18 09:00 04/17/18 08:16 1 Cap) PO 1 cap BID TIMA Administration Pto: (Advanced 2 cap 03/27/18 09:00 04/17/18 08:15 Acidophilus Cap) PO 2 cap DAILY TIMA Administration Polyethylene Glycol/Electrolytes 17 gm 03/22/18 09:00 04/17/18 07:52 Miralax* PO Not Given DAILY TIMA Potassium Chloride 20 meq 03/27/18 09:00 04/17/18 08:15 Klor Con Er Tab* PO 20 meq DAILY TIMA Administration Senna 2 tab 03/21/18 11:15 07/25/18 20:43 Senokot Tab* PO 2 tab BEDTIME PRN Administration CONSTIPATION Vital Signs: Vital Signs Temp Pulse Resp BP Pulse Ox 98.6 F 87 20 110/73 87 04/17/18 11:03 04/17/18 11:03 04/17/18 11:03 04/17/18 11:03 04/17/18 11:03 Exam: GENERAL: no acute distress. alert and appropriate. LUNGS: clear to auscultation bilaterally. HEART: regular rate and rhythm ABDOMEN: + bowel sounds, soft, non-tender, non-distended EXTREMITIES: no edema. lacks full extension in the left elbow NEUROLOGIC: Left cranial nerve VII palsy. 5/5 motor in her right upper and lower extremity with normal sensation. Left UE 2/5 shoulder adduction. LLE motor showed 3/5 knee ext and hip extension, trace ankle PF. Sensation impaired on left side. Assessment/Plan: 1. Intracranial hemorrhage. Will need repeat MRI of her brain in several weeks ; follow up with Neurology. 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 2. F/E/N: Mechanical soft diet and thin liquids per speech.. On MgOx 400mg BID and KCL 20mEq daily. 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 Educated on ROM and stretching daily. 4. Hypertension. Continue with Norvasc. 5. Advanced Directives: She is a full code. Her son, Jt, is her surrogate decision maker. 6. DVT Prophylaxis: TEDs. Blood thinners contraindicated due to ICH 7. Estimated LOS: estimate d/c around 05/06/18. 04/17/18 18:31
[2018-04-18] MEDS: Heparin VIAL(*) 5000 UNITS/ML VIAL (FIVE THOUSAND) SUBCUT SCH ×3 (05:41→21:37)
[2018-04-18] MEDS: Docusate CAP* 100 MG PO SCH ×2 (07:56→20:22)
[2018-04-18] MEDS: [UNRECOGNIZED DRUG - OTHER] PO SCH (07:56)
[2018-04-18] MEDS: Potassium Chlor TAB* 20 MEQ TAB.ER PO SCH (07:56)
[2018-04-18] MEDS: Magnesium Oxide TAB* 400 MG PO SCH ×2 (07:56→20:22)
[2018-04-18] MEDS: amLODIPine TAB* 5 MG PO SCH (07:56)
[2018-04-18] MEDS: [UNRECOGNIZED DRUG - OTHER] PO SCH ×2 (07:57→20:22)
[2018-04-18] MEDS: Polyethylene Glycol 3350* 17 GM PACKET PO SCH (07:58)
[2018-04-18] MEDS: [UNRECOGNIZED DRUG - OTHER] PO SCH (07:58)
--- NOTE | 2018-04-18 11:52 | PN ---
Progress Note Date of Service: 04/18/18 Note: VERÓNICA DEGROOT was visited. Nursing and therapy notes read and reviewed. No chest pain, shortness of breath or abdominal pain. She has had some left rib pains for a while, that were even before her fall and from leaning on her chair. They are better today. Current Medications: Active Medications Generic Name Dose Route Start Last Admin Trade Name Freq PRN Reason Stop Dose Admin Acetaminophen 650 mg 03/21/18 11:15 Tylenol Tab* PO Q4H PRN FEVER > 101 Al Hydrox/Mg Hydrox/Simethicone 30 ml 03/21/18 11:15 Maalox Plus* PO Q6H PRN INDIGESTION Amlodipine Besylate 5 mg 03/22/18 09:00 04/18/18 07:56 Norvasc Tab* PO 5 mg DAILY TIMA Administration Bisacodyl 10 mg 03/21/18 11:49 Dulcolax Supp* [place] DAILY PRN CONSTIPATION Calcium Carbonate 1,250 mg 03/21/18 11:52 04/01/18 09:13 Calcium Carbonate Tab* PO 1,250 mg BID PRN Administration indigestion Docusate Sodium 200 mg 03/21/18 21:00 04/18/18 07:56 Colace Cap* PO 100 mg BID TIMA Administration Heparin Sodium (Porcine) 5,000 units 03/21/18 14:00 04/18/18 05:41 Heparin Vial(*) SUBCUT 5,000 units Q8HR TIMA Administration Magnesium Oxide 400 mg 04/02/18 21:00 04/18/18 07:56 Magox 400 Tab* PO 400 mg BID TIMA Administration Pto:(Coromega [place]- 1 packet 03/22/18 09:00 04/18/18 07:58 3 1 Packet) PO Not Given QAM TIMA (Echinacea Goldseal 1 cap 03/27/18 09:00 04/18/18 07:57 1 Cap) PO 1 cap BID TIMA Administration Pto: (Advanced 2 cap 03/27/18 09:00 04/18/18 07:56 Acidophilus Cap) PO 2 cap DAILY TIMA Administration Polyethylene Glycol/Electrolytes 17 gm 03/22/18 09:00 04/18/18 07:58 Miralax* PO Not Given DAILY TIMA Potassium Chloride 20 meq 03/27/18 09:00 04/18/18 07:56 Klor Con Er Tab* PO 20 meq DAILY TIMA Administration Senna 2 tab 03/21/18 11:15 04/09/18 20:43 Senokot Tab* PO 2 tab BEDTIME PRN Administration CONSTIPATION Vital Signs: Vital Signs Temp Pulse Resp BP Pulse Ox 98.6 F 66 16 121/83 99 04/18/18 05:31 04/18/18 05:31 04/18/18 05:31 04/18/18 05:31 04/18/18 05:31 Exam: GENERAL: no acute distress. alert and appropriate. LUNGS: clear to auscultation bilaterally. HEART: regular rate and rhythm ABDOMEN: + bowel sounds, soft, non-tender, non-distended EXTREMITIES: no edema. lacks full extension in the left elbow NEUROLOGIC: Left cranial nerve VII palsy. 5/5 motor in her right upper and lower extremity with normal sensation. Left UE 2/5 shoulder adduction and biceps. LLE motor showed 3/5 knee ext and hip extension, trace ankle PF. Sensation impaired on left side. Assessment/Plan: 1. Intracranial hemorrhage. Will need repeat MRI of her brain in several weeks ; follow up with Neurology. 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 2. F/E/N: Mechanical soft diet and thin liquids per speech.. On MgOx 400mg BID and KCL 20mEq daily. 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 Educated on ROM and stretching daily. 4. Hypertension. Continue with Norvasc. 5. Advanced Directives: She is a full code. Her son, Jt, is her surrogate decision maker. 6. DVT Prophylaxis: TEDs. Blood thinners contraindicated due to ICH 7. Estimated LOS: estimate d/c around 05/06/18. 04/18/18 11:52
[2018-04-19] MEDS: Heparin VIAL(*) 5000 UNITS/ML VIAL (FIVE THOUSAND) SUBCUT SCH ×3 (06:16→22:14)
[2018-04-19] MEDS: Magnesium Oxide TAB* 400 MG PO SCH ×2 (08:23→22:13)
[2018-04-19] MEDS: [UNRECOGNIZED DRUG - OTHER] PO SCH (08:23)
[2018-04-19] MEDS: [UNRECOGNIZED DRUG - OTHER] PO SCH ×2 (08:23→22:13)
[2018-04-19] MEDS: amLODIPine TAB* 5 MG PO SCH (08:23)
[2018-04-19] MEDS: Potassium Chlor TAB* 20 MEQ TAB.ER PO SCH (08:23)
[2018-04-19] MEDS: Docusate CAP* 100 MG PO SCH ×2 (08:24→22:13)
[2018-04-19] MEDS: Polyethylene Glycol 3350* 17 GM PACKET PO SCH (08:24)
[2018-04-19] MEDS: [UNRECOGNIZED DRUG - OTHER] PO SCH (08:24)
--- NOTE | 2018-04-19 11:51 | PN ---
Progress Note Date of Service: 04/19/18 Note: VERÓNICA DEGROOT was visited. Nursing and therapy notes read and reviewed. No new concerns overnight. No chest pain, shortness of breath or abdominal pain. No pleurisy. Current Medications: Active Medications Generic Name Dose Route Start Last Admin Trade Name Freq PRN Reason Stop Dose Admin Acetaminophen 650 mg 03/21/18 11:15 Tylenol Tab* PO Q4H PRN FEVER > 101 Al Hydrox/Mg Hydrox/Simethicone 30 ml 03/21/18 11:15 Maalox Plus* PO Q6H PRN INDIGESTION Amlodipine Besylate 5 mg 03/22/18 09:00 04/19/18 08:23 Norvasc Tab* PO 5 mg DAILY TIMA Administration Bisacodyl 10 mg 03/21/18 11:49 Dulcolax Supp* [place] DAILY PRN CONSTIPATION Calcium Carbonate 1,250 mg 03/21/18 11:52 04/01/18 09:13 Calcium Carbonate Tab* PO 1,250 mg BID PRN Administration indigestion Docusate Sodium 200 mg 03/21/18 21:00 04/19/18 08:24 Colace Cap* PO Not Given BID TIMA Heparin Sodium (Porcine) 5,000 units 03/21/18 14:00 04/19/18 06:16 Heparin Vial(*) SUBCUT 5,000 units Q8HR TIMA Administration Magnesium Oxide 400 mg 04/02/18 21:00 04/19/18 08:23 Magox 400 Tab* PO 400 mg BID TIMA Administration Pto:(Coromega [place]- 1 packet 03/22/18 09:00 04/19/18 08:24 3 1 Packet) PO Not Given QAM TIMA (Echinacea Goldseal 1 cap 03/27/18 09:00 04/19/18 08:23 1 Cap) PO 1 cap BID TIMA Administration Pto: (Advanced 2 cap 03/27/18 09:00 04/19/18 08:23 Acidophilus Cap) PO 2 cap DAILY TIMA Administration Polyethylene Glycol/Electrolytes 17 gm 03/22/18 09:00 04/19/18 08:24 Miralax* PO Not Given DAILY TIMA Potassium Chloride 20 meq 03/27/18 09:00 04/19/18 08:23 Klor Con Er Tab* PO 20 meq DAILY TIMA Administration Senna 2 tab 03/21/18 11:15 04/09/18 20:43 Senokot Tab* PO 2 tab BEDTIME PRN Administration CONSTIPATION Vital Signs: Vital Signs Temp Pulse Resp BP Pulse Ox 98.4 F 67 16 114/79 99 04/19/18 06:21 04/19/18 06:21 04/19/18 06:21 04/19/18 06:21 04/19/18 08:30 Exam: GENERAL: no acute distress. alert and appropriate. LUNGS: clear to auscultation bilaterally. HEART: regular rate and rhythm ABDOMEN: + bowel sounds, soft, non-tender, non-distended EXTREMITIES: no edema. lacks full extension in the left elbow NEUROLOGIC: Left cranial nerve VII palsy. 5/5 motor in her right upper and lower extremity with normal sensation. Left UE 2/5 shoulder adduction and biceps. LLE motor showed 3/5 knee ext and hip extension, trace ankle PF. Sensation impaired on left side. Assessment/Plan: 1. Intracranial hemorrhage. Will need repeat MRI of her brain in several weeks ; follow up with Neurology. 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 2. F/E/N: Mechanical soft diet and thin liquids per speech.. On MgOx 400mg BID and KCL 20mEq daily. 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 Educated on ROM and stretching daily. 4. Hypertension. Continue with Norvasc. 5. Advanced Directives: She is a full code. Her son, Jt, is her surrogate decision maker. 6. DVT Prophylaxis: TEDs. Blood thinners contraindicated due to ICH 7. Estimated LOS: estimate d/c around 05/06/18. 04/19/18 11:51
[2018-04-20] MEDS: Heparin VIAL(*) 5000 UNITS/ML VIAL (FIVE THOUSAND) SUBCUT SCH ×3 (06:14→21:33)
[2018-04-20] MEDS: Polyethylene Glycol 3350* 17 GM PACKET PO SCH (07:29)
[2018-04-20] MEDS: Docusate CAP* 100 MG PO SCH ×2 (07:30→20:45)
[2018-04-20] MEDS: amLODIPine TAB* 5 MG PO SCH (07:30)
[2018-04-20] MEDS: Potassium Chlor TAB* 20 MEQ TAB.ER PO SCH (07:31)
[2018-04-20] MEDS: Magnesium Oxide TAB* 400 MG PO SCH ×2 (07:31→20:45)
[2018-04-20] MEDS: [UNRECOGNIZED DRUG - OTHER] PO SCH (07:31)
[2018-04-20] MEDS: [UNRECOGNIZED DRUG - OTHER] PO SCH (07:32)
[2018-04-20] MEDS: [UNRECOGNIZED DRUG - OTHER] PO SCH ×2 (07:32→20:45)
--- NOTE | 2018-04-20 10:24 | PN ---
Progress Note Date of Service: 04/20/18 Note: VERÓNICA DEGROOT was visited. Nursing notes read and reviewed. No chest pain, shortness of breath or abdominal pain. No new concerns overnight. Current Medications: Active Medications Generic Name Dose Route Start Last Admin Trade Name Freq PRN Reason Stop Dose Admin Acetaminophen 650 mg 03/21/18 11:15 Tylenol Tab* PO Q4H PRN FEVER > 101 Al Hydrox/Mg Hydrox/Simethicone 30 ml 03/21/18 11:15 Maalox Plus* PO Q6H PRN INDIGESTION Amlodipine Besylate 5 mg 03/22/18 09:00 04/20/18 07:30 Norvasc Tab* PO 5 mg DAILY TIMA Administration Bisacodyl 10 mg 03/21/18 11:49 Dulcolax Supp* [place] DAILY PRN CONSTIPATION Calcium Carbonate 1,250 mg 03/21/18 11:52 04/01/18 09:13 Calcium Carbonate Tab* PO 1,250 mg BID PRN Administration indigestion Docusate Sodium 200 mg 03/21/18 21:00 04/20/18 07:30 Colace Cap* PO Not Given BID TIMA Heparin Sodium (Porcine) 5,000 units 03/21/18 14:00 04/20/18 06:14 Heparin Vial(*) SUBCUT 5,000 units Q8HR TIMA Administration Magnesium Oxide 400 mg 04/02/18 21:00 04/20/18 07:31 Magox 400 Tab* PO 400 mg BID TIMA Administration Pto:(Coromega [place]- 1 packet 03/22/18 09:00 04/20/18 07:32 3 1 Packet) PO Not Given QAM TIMA (Echinacea Goldseal 1 cap 03/27/18 09:00 04/20/18 07:32 1 Cap) PO 1 cap BID TIMA Administration Pto: (Advanced 2 cap 03/27/18 09:00 04/20/18 07:31 Acidophilus Cap) PO 2 cap DAILY TIMA Administration Polyethylene Glycol/Electrolytes 17 gm 03/22/18 09:00 04/20/18 07:29 Miralax* PO Not Given DAILY TIMA Potassium Chloride 20 meq 03/27/18 09:00 04/20/18 07:31 Klor Con Er Tab* PO 20 meq DAILY TIMA Administration Senna 2 tab 03/21/18 11:15 04/09/18 20:43 Senokot Tab* PO 2 tab BEDTIME PRN Administration CONSTIPATION Vital Signs: Vital Signs Temp Pulse Resp BP Pulse Ox 98.7 F 65 18 109/73 98 04/20/18 06:18 04/20/18 06:18 04/20/18 06:18 04/20/18 06:18 04/20/18 06:18 Exam: GENERAL: no acute distress. alert and appropriate. LUNGS: clear to auscultation bilaterally. HEART: regular rate and rhythm ABDOMEN: + bowel sounds, soft, non-tender, non-distended EXTREMITIES: no edema. lacks full extension in the left elbow NEUROLOGIC: Left cranial nerve VII palsy. 5/5 motor in her right upper and lower extremity with normal sensation. Left UE 2/5 shoulder adduction and biceps. LLE motor showed 3/5 knee ext and hip extension, trace ankle PF. Sensation impaired on left side. Assessment/Plan: 1. Intracranial hemorrhage. Will need repeat MRI of her brain in several weeks ; follow up with Neurology. 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 2. F/E/N: Mechanical soft diet and thin liquids per speech.. On MgOx 400mg BID and KCL 20mEq daily. 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 Educated on ROM and stretching daily. 4. Hypertension. Continue with Norvasc. 5. Advanced Directives: She is a full code. Her son, Jt, is her surrogate decision maker. 6. DVT Prophylaxis: TEDs. Blood thinners contraindicated due to ICH 7. Estimated LOS: estimate d/c around 05/06/18. 04/20/18 10:24
[2018-04-21] MEDS: Heparin VIAL(*) 5000 UNITS/ML VIAL (FIVE THOUSAND) SUBCUT SCH ×3 (05:13→21:19)
[2018-04-21] MEDS: Polyethylene Glycol 3350* 17 GM PACKET PO SCH (09:12)
[2018-04-21] MEDS: Docusate CAP* 100 MG PO SCH ×2 (09:12→19:57)
[2018-04-21] MEDS: [UNRECOGNIZED DRUG - OTHER] PO SCH (09:12)
[2018-04-21] MEDS: Magnesium Oxide TAB* 400 MG PO SCH ×2 (09:20→19:56)
[2018-04-21] MEDS: [UNRECOGNIZED DRUG - OTHER] PO SCH (09:20)
[2018-04-21] MEDS: amLODIPine TAB* 5 MG PO SCH (09:20)
[2018-04-21] MEDS: Potassium Chlor TAB* 20 MEQ TAB.ER PO SCH (09:20)
[2018-04-21] MEDS: [UNRECOGNIZED DRUG - OTHER] PO SCH ×2 (09:21→19:56)
--- NOTE | 2018-04-21 18:33 | PN ---
Progress Note Date of Service: 04/21/18 Note: VERÓNICA DEGROOT was visited. Therapy notes read and reviewed. She is doing pretty well overall. Spirits are really good Current Medications: Active Medications Generic Name Dose Route Start Last Admin Trade Name Freq PRN Reason Stop Dose Admin Acetaminophen 650 mg 03/21/18 11:15 Tylenol Tab* PO Q4H PRN FEVER > 101 Al Hydrox/Mg Hydrox/Simethicone 30 ml 03/21/18 11:15 Maalox Plus* PO Q6H PRN INDIGESTION Amlodipine Besylate 5 mg 03/22/18 09:00 04/21/18 09:20 Norvasc Tab* PO 5 mg DAILY TIMA Administration Bisacodyl 10 mg 03/21/18 11:49 Dulcolax Supp* [place] DAILY PRN CONSTIPATION Calcium Carbonate 1,250 mg 03/21/18 11:52 04/01/18 09:13 Calcium Carbonate Tab* PO 1,250 mg BID PRN Administration indigestion Docusate Sodium 200 mg 03/21/18 21:00 04/21/18 09:12 Colace Cap* PO Not Given BID TIMA Heparin Sodium (Porcine) 5,000 units 03/21/18 14:00 04/21/18 13:35 Heparin Vial(*) SUBCUT 5,000 units Q8HR TIMA Administration Magnesium Oxide 400 mg 04/02/18 21:00 04/21/18 09:20 Magox 400 Tab* PO 400 mg BID TIMA Administration Pto:(Coromega [place]- 1 packet 03/22/18 09:00 04/21/18 09:12 3 1 Packet) PO Not Given QAM TIMA (Echinacea Goldseal 1 cap 03/27/18 09:00 04/21/18 09:21 1 Cap) PO 1 cap BID TIMA Administration Pto: (Advanced 2 cap 03/27/18 09:00 04/21/18 09:20 Acidophilus Cap) PO 2 cap DAILY TIMA Administration Polyethylene Glycol/Electrolytes 17 gm 03/22/18 09:00 04/21/18 09:12 Miralax* PO Not Given DAILY TIMA Potassium Chloride 20 meq 03/27/18 09:00 04/21/18 09:20 Klor Con Er Tab* PO 20 meq DAILY TIMA Administration Senna 2 tab 03/21/18 11:15 04/09/18 20:43 Senokot Tab* PO 2 tab BEDTIME PRN Administration CONSTIPATION Vital Signs: Vital Signs Temp Pulse Resp BP Pulse Ox 99.4 F 85 22 111/82 98 04/21/18 16:00 04/21/18 16:00 04/21/18 16:00 04/21/18 16:00 04/21/18 16:00 Exam: GENERAL: no acute distress. alert and appropriate. LUNGS: clear to auscultation bilaterally. HEART: regular rate and rhythm ABDOMEN: + bowel sounds, soft, non-tender, non-distended EXTREMITIES: no edema. lacks full extension in the left elbow NEUROLOGIC: Left cranial nerve VII palsy. 5/5 motor in her right upper and lower extremity with normal sensation. Left UE 2/5 shoulder adduction. LLE motor showed 3/5 knee ext and hip extension, trace ankle PF. Sensation impaired on left side. Assessment/Plan: 1. Intracranial hemorrhage. Will need repeat MRI of her brain in several weeks ; follow up with Neurology. 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 2. F/E/N: Mechanical soft diet and thin liquids per speech.. On MgOx 400mg BID and KCL 20mEq daily. 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 Educated on ROM and stretching daily. 4. Hypertension. Continue with Norvasc. 5. Advanced Directives: She is a full code. Her son, Jt, is her surrogate decision maker. 6. DVT Prophylaxis: TEDs. Blood thinners contraindicated due to ICH 7. Estimated LOS: estimate d/c around 05/06/18. 04/21/18 18:33
[2018-04-22] MEDS: Heparin VIAL(*) 5000 UNITS/ML VIAL (FIVE THOUSAND) SUBCUT SCH ×3 (06:00→21:01)
[2018-04-22] MEDS: Docusate CAP* 100 MG PO SCH ×2 (09:56→20:53)
[2018-04-22] MEDS: Polyethylene Glycol 3350* 17 GM PACKET PO SCH (09:57)
[2018-04-22] MEDS: [UNRECOGNIZED DRUG - OTHER] PO SCH (10:18)
[2018-04-22] MEDS: Magnesium Oxide TAB* 400 MG PO SCH ×2 (10:24→20:53)
[2018-04-22] MEDS: amLODIPine TAB* 5 MG PO SCH (10:24)
[2018-04-22] MEDS: [UNRECOGNIZED DRUG - OTHER] PO SCH (10:24)
[2018-04-22] MEDS: Potassium Chlor TAB* 20 MEQ TAB.ER PO SCH (10:24)
[2018-04-22] MEDS: [UNRECOGNIZED DRUG - OTHER] PO SCH ×2 (10:25→20:52)
--- NOTE | 2018-04-22 12:55 | PMRUTEAM ---
PMRU: Team Meeting Current Status: Nursing: Current Status Skin Deviations [Left Elbow] Other Skin Deviations [Abdomen] Bruise Skin Deviations [Coccyx] Other Skin Deviations [Right Groin] Previous Access Point Skin Deviation Description [ no deviation noted Left Elbow] Skin Deviation Description [ Bruising Abdomen] Skin Deviation Description [ slightly reddened Coccyx] Skin Deviation Description [ healed Right Groin] Bladder Current Status voiding Bowel Current Status daily bowel mov'ts Nutrition Current Status appetite good Medication Current Status Pt w good understanding of medications Physical Therapy: Current Status Bed Mobility Assistance Contact Guard Assist Transfer Moblility Assistance Contact Guard Assist,Min Assist Transfer/Bed Mobility Railings Recommended Devices Ambulation Assistance Min Assist,Mod Assist Ambulation Assistive Devices Manoj Walker Number of Feet Patient 20-40 Ambulated Stairs Assistance Mod Assist Stairs Recommended Devices One Rail Number of Stairs 2x2, 6 inch steps Manual Wheelchair Control/ Right UE/Right LE Technique Wheelchair Propulsion Ability Standby Assistance,Minimum Assistance Objective Comments L UE sling utilized for shoulder jt protection, L AFO (solid mod trim) for foot clearance Occupational Therapy: Current Status Upper Body Dressing Min Assist Lower Body Dressing Mod Assist Lower Body Dressing Progress mod - min. More I when doing in bed Bathing Mod Assist Bathing Progress in shower w/c Toileting Min Assist Toileting Progress rolling in bed or standing at bedrail Toilet Transfer Mod Assist Toilet Transfer Progress SPT off of commode Shower Transfer Total Assist Shower Transfer Progress not attempted showers in w/c Eating Independent Eating Progress set up Rec Therapy: Current Status Summary of Assessment and RT assessment complete and pt. is aware of Clinical Impression services. Pt. has been actively engaged in leisure activities and sessions while on the unit. Treatment Goals Patient will engage in recreation and leisure activities while on the unit. Treatment Plan Provide and encourage involvement in RT services. Social Work: Current Status Discharge Plan return home with home care svs and family support Potential for Family Training pt's friend, Amirah is involved and supportive Anticipated Discharge Home Destination Discharge With home care svs and family support Nutrition: Current Status Monitoring continues to eat well (90-100% of meals, mech soft textures, thin liquids). Making improvements w/ cog/ling intervention per CRAYON SORTING MACHINE FEEDER. Continues with daily K and mag supplementation. Serum mag 1.6 (8/ ) and improved from low of 1.3 (7/), but may need to increase supplementation from BID to TID if no further improvement seen. Will provide education re: high magnesium food sources. Skin remains intact. Daily BMs. Speech: Current Status Assessment Patient is progressing as expected. Patient uses compensatory visual strategies, scanning left read from the beginning of lines and the beginning of words, ad finding all items on a page. Patient met goal of achieving symmetrical oral motor facial movment. Patient is proigressing in problem solving for functional independence and safety. Speech Current Status Goal 1 Within Functional linits Speech Goal 2 Current Status Mild impairment Speech Goal 3 Current Status Mild impairment Goals: Physical Therapy: Initial Goals Bed Mobility Assistance Independent Transfer Mobility Assistance Independent Transfer/Bed Mobility Manoj Walker Recommended Devices Ambulation Independent Ambulation Recommended Devices Manoj Walker Ambulation Distance 50 Wheelchair Propulsion Ability Independent Stairs Assistance Independent Stair Recommended Devices One Rail Number of Stairs 5 Physical Therapy: Updated Goals Transfer/Bed Mobility Lisa Lift Recommended Devices Occupational Therapy: Initial Goals Goals to be Completed in (Days 4-6 weeks ) Upper Body Bathing Routine Modified Independent with Lower Body Bathing Routine Modified Independent with Upper Body Dressing Routine Modified Independent with Lower Body Dressing Routine Modified Independent with Toilet Hygeine and Clothing Modified Independent with Management Routine Toilet Transfer Routine Modified Independent with Tub Transfer Routine Supervision/Set Up Functional Transfers for ADL Modified Independent with Grooming Routine Modified Independent with Feeding Routine Modified Independent with Nursing: Goals Bladder Goal indep Bowel Goal indep Nutrition Goal indep Medication Goal indep Nutrition: Goals Intervention Goals 1. Pt will tolerate least-restrictive diet texture without s/sx difficulty chewing 2. Intake will remain >75% of meals 3. Intake will be adequate to maintain stable wt, hydration, and lean body mass 4. Serum magnesium will return to normal range w/ daily supplementation and diet education 5. Pt will receive education re: high magnesium food sources Speech: Goals Speech Goal 1 Comprehension Speech Evaluation Status Goal Mild-moderate impairment 1 Speech Current Status Goal 1 Within Functional linits Goal 1 Comments Long-Term Goal: Pt will use compensatory strategies to demonstrate comprehension of paragraph length verbal and written information of moderate complexity, 100% accuracy, given minimal extra time, Independently. Short-Term Goal: Pt will use compensatory strategies to attend to information in the Left visual field and demonstrate comprehension of paragraph length verbal and written information of moderate complexity, 95% accuracy, given moderate extra time, Independently. Status: Progress as expected For 9 pictures on a page in a 3x3 grid, patient repeatredly identified all 9 without neglect of Left side during memory problem solving activity. Speech Goal 2 Problem Solving Speech Goal 2 Evaluation Moderate impairment Status Speech Goal 2 Current Status Mild impairment Speech Goal 2 Comments Long-Term Goal: Patient will use compensatory strategies to solve moderately complex routine problems, with 100% accuracy, Independently, for ADLs such as shopping, time and money management. Short-Term Goal: Patient will use compensatory strategies to attend to information in the Left visual field to solve moderately complex problems, with 90% accuracy, given Minimal skilled instruction and cueing. Status: Progressing as expected. CRAYON SORTING MACHINE FEEDER presented 9 pictures on a page in a 3x3 grid, and directed patient to encode and retrieve them. Patient initially recalled 5 given minimal cueing. CRAYON SORTING MACHINE FEEDER instructed patient to use naming, gesture and persoanl association strategies to encode, and patient reclled 02/22 I'y. CRAYON SORTING MACHINE FEEDER directed patient to find other ways to leanr n them, and patient associated pictures into categories of 2-3, then recsalled 04/24 I'ly and 05/25 givne minimal cue of " one more in that category." Speech Goal 3 Motor speech Speech Goal 3 Evaluation Moderate impairment Status Speech Goal 3 Current Status Mild impairment Speech Goal 3 Comments Longterm Goal: Patient will demonstrate improvement in range and rate of motion of her Left side labial retractors, elevators and depressors, to 90% of Right side, to achieve functional ability to eat and drink without spillage, speak with minimal distortion, and make appropriate facial expressions. Status: Met Short Term Goal: Patient will demonstrate improvement in range and rate of motion of her Left side labial retractors, elevators and depressors, to 90% of Right side, achieve functional ability to eat and drink without spillage, speak with minimal distortion, and make appropriate facial expressions, given Minimal cueing. Status: Met Patient completed oral motor exercises and repeated multipsyllabic target wordswith 100% intelligibility. Patient demonstrated symmetrical face at rest, symmetrical spontaneous fsacial expression including smile and frown, and 95-100% symmetrical isolated movements including Left side lip retraction and depression. Mildly decreased medial-left upper lip elevation does not impair functional use for expression and eating. Social Work: Goals Discharge Plan return home with home care svs and family support Potential for Family Training pt's friend, Amirah is involved and supportive Anticipated Discharge Home Destination Discharge With home care svs and family support Care Plan: Care Plan ADL's - Improve/Maintain Start: 03/23/18 00:21 Freq: DAILY Status: Active Target: Protocol: Activity Type Activity Date Activity User E-Sign Co-Sign Detail Recorded Client Recorded Date Recorded By Document 04/17/18 14:48 [id number] 04/17/18 14:48 [id number] 04/17/18 14:48 PMRU Outcome: ADL's/ADL Transfers Orders/Interventions Occupational Therapy Evaluation & Treatment Communication Tool in Patient Room Patient to receive OT 5x/wk for 60-120 Therex min/day Self Care Management Group Therapy Neuromuscular ReEducation UE/LE ADL's with Assist Yes: mod I ADL Transfers with Assist Yes: mod I Toileting: Transfers,Clothing Management Yes: mod I ,Hygeine w/Assist Progression Toward Outcome/Goals Progressing Outcome/Goals Met Pt demonstrated good dynamic and static sitting balance in w/c with LUE supported by tray and pillow. Pt demonstrates increased strength in RUE - tolerating using it for the entire baking activity before c/o fatigue. Pt demonstrates no L side neglect Communication-Improve/Maintain Start: 03/23/18 00:21 Freq: DAILY Status: Active Target: Protocol: Activity Type Activity Date Activity User E-Sign Co-Sign Detail Recorded Client Recorded Date Recorded By Document 04/22/18 01:23 [id number] 04/22/18 01:23 [id number] 04/22/18 01:23 PMRU Outcome: Communication/Cognitive Status Outcome/Goals Makes Needs Known Effectively Other Outcomes/Goals Comprehension Long-Term Goal: Pt will use compensatory strategies to demonstrate comprehension of paragraph length verbal and written information of moderate complexity, 100 % accuracy, given minimal extra time, Independently. Short-Term Goal : Pt will use compensatory strategies to attend to information in the Left visual field and demonstrate comprehension of paragraph length verbal and written information of moderate complexity, 95% accuracy, given moderate extra time, Independently. Status: Progressing as expected. Long-Term Goal: Patient will use compensatory strategies to solve moderately complex routine problems, with 100% accuracy, Independently, for ADLs such as shopping, time and money management. Short-Term Goal : Patient will use compensatory strategies to attend to information in the Left visual field to solve moderately complex problems, with 90% accuracy, given Minimal skilled instruction and cueing. Status: Progressing as expected. Motor Speech Lab Analyst Goal: Patient will demonstrate improvement in range and rate of motion of her Left side labial retractors, elevators and depressors, to 90% of Right side, to achieve functional ability to eat and drink without spillage, speak with minimal distortion, and make appropriate facial expressions. Short Term Goal : Patient will demonstrate improvement in range and rate of motion of her Left side labial retractors, elevators and depressors, to 90% of Right side, achieve functional ability to eat and drink without spillage, speak with minimal distortion, and make appropriate facial expressions, given Minimal cueing. Status: Progressing as expected. Progression Toward Outcomes/Goals Progressing Discharge Planning - Improve/Maintain Start: 03/23/18 00:21 Freq: DAILY Status: Active Target: Protocol: Activity Type Activity Date Activity User E-Sign Co-Sign Detail Recorded Client Recorded Date Recorded By Document 04/22/18 01:23 [id number] 04/22/18 01:23 [id number] 04/22/18 01:23 PMRU Outcome: Discharge Planning Update Patient Family No Outcome/Goals Demonstrates Understanding of Discharge Plan Progression Toward Outcome/Goals Progressing Education-Improve/Maintain Start: 03/23/18 00:21 Freq: QSHIFT Status: Active Target: Protocol: Activity Type Activity Date Activity User E-Sign Co-Sign Detail Recorded Client Recorded Date Recorded By Document 04/22/18 09:40 [id number] 04/22/18 11:55 [id number] 04/22/18 09:40 PMRU Outcome: Education Outcome/Goals Encourage Questions Progression Toward Outcome/Goals Progressing /GI-Improve/Maintain Start: 03/23/18 00:21 Freq: QSHIFT Status: Active Target: Protocol: Activity Type Activity Date Activity User E-Sign Co-Sign Detail Recorded Client Recorded Date Recorded By Document 04/22/18 09:40 [id number] 04/22/18 11:55 [id number] 04/22/18 09:40 PMRU Outcome: Genitourinary/ Gastrointestinal Genitourinary- Outcome/Goals Maintain/ Achieve Urinary Continence Gastrointestinal-Outcome/Goals Maintain/ Achieve Bowel Regularity in Accordance with Pt's Baseline Prevent Constipation Laxatives as Ordered Progression Toward Outcome/Goals - Progressing Progression Toward Outcome/Goals - GI Progressing Mobility- Improve/Maintain Start: 03/21/18 17:34 Freq: DAILY Status: Active Target: Protocol: Activity Type Activity Date Activity User E-Sign Co-Sign Detail Recorded Client Recorded Date Recorded By Document 03/26/18 16:51 [id number] 03/26/18 16:51 [id number] 03/26/18 16:51 PMRU Outcome: Mobility Physical Therapy Evaluation and Yes Treatment Activity OOB with Assistance Yes WBAT Yes Device Yes Assistance Yes Patient to be seen 5x/wk for 60-120 min/ Therex day for: Mobility Training Gait Training W/C Mobility Balance Outcome/Goals Maintain/ Achieve Baseline Mobility Status Improve Mobility Status Demonstrates Proper Use of Assistive Devices Free from Complications of Immobility Progression Toward Outcome/Goals Progressing Outcome/Goals Met Comment improved ability to extend LLE against gravity Bed Mobility Yes: independnet Transfers Yes: independent with manoj walker Gait x ft Yes: independent with hemiwalker 50' W/C Mobility x ft Yes: independent with RU/LE 300' Up/Down Stairs Yes: inddependent up /down 5 stairs. Neurological- Improve/Maintain Start: 03/23/18 00:21 Freq: QSHIFT Status: Active Target: Protocol: Activity Type Activity Date Activity User E-Sign Co-Sign Detail Recorded Client Recorded Date Recorded By Document 04/22/18 09:40 [id number] 04/22/18 11:55 [id number] 04/22/18 09:40 PMRU Outcome: Neurological Weakness/Aphasia Weakness Left Side Weakness/Aphasia Comment left sided weakness- cva Outcome/Goals Maintain/ Achieve Baseline Neurological Status Improve Neurological Status Prevent Avoidable Neurological Decline Maintain/ Improve Strength/ROM Progression Toward Outcome/Goals Progressing Pain/Comfort- Improve/Maintain Start: 03/23/18 00:21 Freq: QSHIFT Status: Complete Target: Protocol: Activity Type Activity Date Activity User E-Sign Co-Sign Detail Recorded Client Recorded Date Recorded By Document 04/18/18 11:41 [id number] 04/18/18 11:42 [id number] 04/18/18 11:41 PMRU Outcome: Pain/Comfort Outcome/Goals Demonstrates Knowledge and Use of Available Comfort Measures Achieves Acceptable Comfort/Pain Level as Determined by Patient/Condit Maintain Comfort Level Allowing Patient to Fully Participate in Rehab Progression Toward Outcome/Goals Progressing Safety- Improve/Maintain Start: 03/23/18 00:21 Freq: QSHIFT Status: Active Target: Protocol: Activity Type Activity Date Activity User E-Sign Co-Sign Detail Recorded Client Recorded Date Recorded By Document 04/22/18 09:40 [id number] 04/22/18 11:59 [id number] 04/22/18 09:40 PMRU Outcome: Safety Outcome/Goals Remain Free of Injury or Harm Cooperates with Safety Measures for Least Restrictive Environment Prevent Falls/ Injury Progression Toward Outcome/Goals Progressing Skin- Improve/Maintain Start: 03/23/18 00:21 Freq: QSHIFT Status: Active Target: Protocol: Activity Type Activity Date Activity User E-Sign Co-Sign Detail Recorded Client Recorded Date Recorded By Document 04/22/18 09:40 [id number] 04/22/18 11:59 [id number] 04/22/18 09:40 PMRU Outcome: Skin Skin Risk Level Medium Skin Orders Multipodus Boot Dressing Change Comments Pillows Outcome/Goals Maintain/ Improve Skin Intergrity Progression Toward Outcome/Goals Progressing Medicine Note: Length of Stay: 1-2 weeks Anticipated Discharge Destination: Home Tentative Discharge Date: 05/06/18 Discharged to: D
--- NOTE | 2018-04-22 17:21 | PN ---
Progress Note Date of Service: 04/22/18 Note: VERÓNICA DEGROOT was visited. Therapy notes read and reviewed. She was discussed in interdisciplinary team rounds. She has made gains, but there is a big question of whether she will be able to be home alond for several hours a day. Will try to arrange meeting with her son Current Medications: Active Medications Generic Name Dose Route Start Last Admin Trade Name Freq PRN Reason Stop Dose Admin Acetaminophen 650 mg 03/21/18 11:15 Tylenol Tab* PO Q4H PRN FEVER > 101 Al Hydrox/Mg Hydrox/Simethicone 30 ml 03/21/18 11:15 Maalox Plus* PO Q6H PRN INDIGESTION Amlodipine Besylate 5 mg 03/22/18 09:00 04/22/18 10:24 Norvasc Tab* PO 5 mg DAILY TIMA Administration Bisacodyl 10 mg 03/21/18 11:49 Dulcolax Supp* [place] DAILY PRN CONSTIPATION Calcium Carbonate 1,250 mg 03/21/18 11:52 04/01/18 09:13 Calcium Carbonate Tab* PO 1,250 mg BID PRN Administration indigestion Docusate Sodium 200 mg 03/21/18 21:00 04/22/18 09:56 Colace Cap* PO Not Given BID TIMA Heparin Sodium (Porcine) 5,000 units 03/21/18 14:00 04/22/18 14:29 Heparin Vial(*) SUBCUT 5,000 units Q8HR TIMA Administration Magnesium Oxide 400 mg 04/02/18 21:00 04/22/18 10:24 Magox 400 Tab* PO 400 mg BID TIMA Administration Pto:(Coromega [place]- 1 packet 03/22/18 09:00 04/22/18 10:18 3 1 Packet) PO Not Given QAM TIMA (Echinacea Goldseal 1 cap 03/27/18 09:00 04/22/18 10:25 1 Cap) PO 1 cap BID TIMA Administration Pto: (Advanced 2 cap 03/27/18 09:00 04/22/18 10:24 Acidophilus Cap) PO 2 cap DAILY TIMA Administration Polyethylene Glycol/Electrolytes 17 gm 03/22/18 09:00 04/22/18 09:57 Miralax* PO Not Given DAILY TIMA Potassium Chloride 20 meq 03/27/18 09:00 04/22/18 10:24 Klor Con Er Tab* PO 20 meq DAILY TIMA Administration Senna 2 tab 03/21/18 11:15 04/09/18 20:43 Senokot Tab* PO 2 tab BEDTIME PRN Administration CONSTIPATION Vital Signs: Vital Signs Temp Pulse Resp BP Pulse Ox 98.4 F 84 16 119/75 97 04/22/18 15:40 04/22/18 15:40 04/22/18 15:40 04/22/18 15:40 04/22/18 15:40 Exam: GENERAL: no acute distress. alert and appropriate. LUNGS: clear to auscultation bilaterally. HEART: regular rate and rhythm ABDOMEN: + bowel sounds, soft, non-tender, non-distended EXTREMITIES: no edema. lacks full extension in the left elbow NEUROLOGIC: Left cranial nerve VII palsy. 5/5 motor in her right upper and lower extremity with normal sensation. Left UE 2/5 shoulder adduction. LLE motor showed 3/5 knee ext and hip extension, trace ankle PF. Sensation impaired on left side. Assessment/Plan: 1. Intracranial hemorrhage. Will need repeat MRI of her brain in several weeks ; follow up with Neurology. PT/OT/EDITORIAL ASSISTANT. 2. F/E/N: Mechanical soft diet and thin liquids per speech.. On MgOx 400mg BID and KCL 20mEq daily. 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 Educated on ROM and stretching daily. 4. Hypertension. Continue with Norvasc. 5. Advanced Directives: She is a full code. Her son, Jt, is her surrogate decision maker. 6. DVT Prophylaxis: TEDs. Blood thinners contraindicated due to ICH 7. Estimated LOS: estimate d/c around 05/06/18. 04/22/18 17:21
[2018-04-23 05:10] LABS: ABS Basophils 0.1 10^3/ul (0-0.2); ABS Eosinophils 0.3 10^3/ul (0-0.6); ABS Monocytes 1.1 10^3/ul (0-0.8); ABS Neutrophils 4.2 10^3/ul (1.5-7.7); ABS Nucleated RBC 0 10^3/ul; Eosinophil % 3.3 % (0-6); Hematocrit 38 % (35-47); Hemoglobin 13.4 g/dl (12.0-16.0); Lymphocyte % 26.1 % (25-47); Mean Corpuscular HGB Conc 35 g/dl (31-36); Mean Corpuscular Hemoglobin 35 pg (27-31); Mean Corpuscular Volume 100 fL (80-97); Mean Platelet Volume 7.3 um3 (7.4-10.4); Nucleated Red Blood Cells % 0.1; Platelet Count 412 10^3/ul (150-450); Red Blood Count 3.84 10^6/ul (4.00-5.40); Red Cell Distribution Width 13 % (10.5-15); White Blood Count 7.6 10^3/ul (3.5-10.8)
[2018-04-23 05:26] LABS: EGFR Non-African American 99.1 (>60)
[2018-04-23] MEDS: Heparin VIAL(*) 5000 UNITS/ML VIAL (FIVE THOUSAND) SUBCUT SCH ×3 (06:14→22:06)
[2018-04-23] MEDS: [UNRECOGNIZED DRUG - OTHER] PO SCH (07:44)
[2018-04-23] MEDS: [UNRECOGNIZED DRUG - OTHER] PO SCH ×2 (07:44→22:06)
[2018-04-23] MEDS: amLODIPine TAB* 5 MG PO SCH (07:45)
[2018-04-23] MEDS: Magnesium Oxide TAB* 400 MG PO SCH ×2 (07:45→22:06)
[2018-04-23] MEDS: Docusate CAP* 100 MG PO SCH ×2 (07:45→22:16)
[2018-04-23] MEDS: Potassium Chlor TAB* 20 MEQ TAB.ER PO SCH (07:45)
[2018-04-23] MEDS: [UNRECOGNIZED DRUG - OTHER] PO SCH (07:46)
[2018-04-23] MEDS: Polyethylene Glycol 3350* 17 GM PACKET PO SCH (07:46)
--- NOTE | 2018-04-23 20:09 | PN ---
Progress Note Date of Service: 04/23/18 Note: VERÓNICA DEGROOT was visited. Therapy notes read and reviewed. Trying to arrange family meeting with her son Jt. Overall doing okay Current Medications: Active Medications Generic Name Dose Route Start Last Admin Trade Name Freq PRN Reason Stop Dose Admin Acetaminophen 650 mg 03/21/18 11:15 Tylenol Tab* PO Q4H PRN FEVER > 101 Al Hydrox/Mg Hydrox/Simethicone 30 ml 03/21/18 11:15 Maalox Plus* PO Q6H PRN INDIGESTION Amlodipine Besylate 5 mg 03/22/18 09:00 04/23/18 07:45 Norvasc Tab* PO 5 mg DAILY TIMA Administration Bisacodyl 10 mg 03/21/18 11:49 Dulcolax Supp* [place] DAILY PRN CONSTIPATION Calcium Carbonate 1,250 mg 03/21/18 11:52 04/01/18 09:13 Calcium Carbonate Tab* PO 1,250 mg BID PRN Administration indigestion Docusate Sodium 200 mg 03/21/18 21:00 04/23/18 07:45 Colace Cap* PO Not Given BID TIMA Heparin Sodium (Porcine) 5,000 units 03/21/18 14:00 04/23/18 14:41 Heparin Vial(*) SUBCUT 5,000 units Q8HR TIMA Administration Magnesium Oxide 400 mg 04/02/18 21:00 04/23/18 07:45 Magox 400 Tab* PO 400 mg BID TIMA Administration Pto:(Coromega [place]- 1 packet 03/22/18 09:00 04/23/18 07:46 3 1 Packet) PO Not Given QAM TIMA (Echinacea Goldseal 1 cap 03/27/18 09:00 04/23/18 07:44 1 Cap) PO 1 cap BID TIMA Administration Pto: (Advanced 2 cap 03/27/18 09:00 04/23/18 07:44 Acidophilus Cap) PO 2 cap DAILY TIMA Administration Polyethylene Glycol/Electrolytes 17 gm 03/22/18 09:00 04/23/18 07:46 Miralax* PO Not Given DAILY TIMA Potassium Chloride 20 meq 03/27/18 09:00 04/23/18 07:45 Klor Con Er Tab* PO 20 meq DAILY TIMA Administration Senna 2 tab 03/21/18 11:15 04/09/18 20:43 Senokot Tab* PO 2 tab BEDTIME PRN Administration CONSTIPATION Vital Signs: Vital Signs Temp Pulse Resp BP Pulse Ox 98.3 F 88 18 109/78 95 04/23/18 16:04 04/23/18 16:04 04/23/18 16:04 04/23/18 16:04 04/23/18 19:25 Lab Results: Laboratory Results - last 24 hr 04/23/18 04/23/18 04:55 04:55 WBC 7.6 RBC 3.84 L Hgb 13.4 Hct 38 MCV 100 H MCH 35 H MCHC 35 RDW 13 Plt Count 412 MPV 7.3 L Neut % (Auto) 55.0 Lymph % (Auto) 26.1 Worth % (Auto) 14.3 H Eos % (Auto) 3.3 Baso % (Auto) 1.3 Absolute Neuts (auto) 4.2 Absolute Lymphs (auto) 2.0 Absolute Monos (auto) 1.1 H Absolute Eos (auto) 0.3 Absolute Basos (auto) 0.1 Absolute Nucleated RBC 0 Nucleated RBC % 0.1 Sodium 139 Potassium 4.1 Chloride 104 Carbon Dioxide 27 Anion Gap 8 BUN 9 Creatinine 0.61 Est GFR ( Amer) 119.9 Est GFR (Non-Af Amer) 99.1 BUN/Creatinine Ratio 14.8 Glucose 89 Calcium 10.1 Magnesium 1.6 L Total Bilirubin 0.40 AST 14 ALT 15 Alkaline Phosphatase 49 Total Protein 6.5 Albumin 3.7 Globulin 2.8 Albumin/Globulin Ratio 1.3 Exam: GENERAL: no acute distress. alert and appropriate. LUNGS: clear to auscultation bilaterally. HEART: regular rate and rhythm ABDOMEN: + bowel sounds, soft, non-tender, non-distended EXTREMITIES: no edema. lacks full extension in the left elbow NEUROLOGIC: Left cranial nerve VII palsy. 5/5 motor in her right upper and lower extremity with normal sensation. Left UE 2/5 shoulder adduction. LLE motor showed 3/5 knee ext and hip extension, trace ankle PF. Sensation impaired on left side. Assessment/Plan: 1. Intracranial hemorrhage. Will need repeat MRI of her brain in several weeks ; follow up with Neurology. PT/OT/FACING BASTER JUMPBASTING. 2. F/E/N: Mechanical soft diet and thin liquids per speech.. On MgOx 400mg BID and KCL 20mEq daily. 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 Educated on ROM and stretching daily. 4. Hypertension. Continue with Norvasc. 5. Advanced Directives: She is a full code. Her son, Jt, is her surrogate decision maker. 6. DVT Prophylaxis: TEDs. Blood thinners contraindicated due to ICH 7. Estimated LOS: estimate d/c around 05/06/18. 04/23/18 20:09
[2018-04-24] MEDS: Heparin VIAL(*) 5000 UNITS/ML VIAL (FIVE THOUSAND) SUBCUT SCH ×3 (06:15→21:37)
[2018-04-24] MEDS: amLODIPine TAB* 5 MG PO SCH (07:27)
[2018-04-24] MEDS: Docusate CAP* 100 MG PO SCH ×2 (07:28→21:37)
[2018-04-24] MEDS: [UNRECOGNIZED DRUG - OTHER] PO SCH ×2 (07:28→21:36)
[2018-04-24] MEDS: [UNRECOGNIZED DRUG - OTHER] PO SCH (07:28)
[2018-04-24] MEDS: [UNRECOGNIZED DRUG - OTHER] PO SCH (07:28)
[2018-04-24] MEDS: Magnesium Oxide TAB* 400 MG PO SCH ×2 (07:29→21:36)
[2018-04-24] MEDS: Potassium Chlor TAB* 20 MEQ TAB.ER PO SCH (07:29)
[2018-04-24] MEDS: Polyethylene Glycol 3350* 17 GM PACKET PO SCH (07:30)
--- NOTE | 2018-04-24 19:20 | PN ---
Progress Note Date of Service: 04/24/18 Note: VERÓNICA DEGROOT was visited. Therapy notes read and reviewed. She was observed trying to ambulate. Steady in standing. Had difficulty advancing left leg Current Medications: Active Medications Generic Name Dose Route Start Last Admin Trade Name Freq PRN Reason Stop Dose Admin Acetaminophen 650 mg 03/21/18 11:15 Tylenol Tab* PO Q4H PRN FEVER > 101 Al Hydrox/Mg Hydrox/Simethicone 30 ml 03/21/18 11:15 Maalox Plus* PO Q6H PRN INDIGESTION Amlodipine Besylate 5 mg 03/22/18 09:00 04/24/18 07:27 Norvasc Tab* PO 5 mg DAILY TIMA Administration Bisacodyl 10 mg 03/21/18 11:49 Dulcolax Supp* [place] DAILY PRN CONSTIPATION Calcium Carbonate 1,250 mg 03/21/18 11:52 04/01/18 09:13 Calcium Carbonate Tab* PO 1,250 mg BID PRN Administration indigestion Docusate Sodium 200 mg 03/21/18 21:00 04/24/18 07:28 Colace Cap* PO Not Given BID TIMA Heparin Sodium (Porcine) 5,000 units 03/21/18 14:00 04/24/18 13:52 Heparin Vial(*) SUBCUT 5,000 units Q8HR TIMA Administration Magnesium Oxide 400 mg 04/02/18 21:00 04/24/18 07:29 Magox 400 Tab* PO 400 mg BID TIMA Administration Pto:(Coromega [place]- 1 packet 03/22/18 09:00 04/24/18 07:28 3 1 Packet) PO Not Given QAM TIMA (Echinacea Goldseal 1 cap 03/27/18 09:00 04/24/18 07:28 1 Cap) PO 1 cap BID TIMA Administration Pto: (Advanced 2 cap 03/27/18 09:00 04/24/18 07:28 Acidophilus Cap) PO 2 cap DAILY TIMA Administration Polyethylene Glycol/Electrolytes 17 gm 03/22/18 09:00 04/24/18 07:30 Miralax* PO Not Given DAILY TIMA Potassium Chloride 20 meq 03/27/18 09:00 04/24/18 07:29 Klor Con Er Tab* PO 20 meq DAILY TIMA Administration Senna 2 tab 03/21/18 11:15 04/09/18 20:43 Senokot Tab* PO 2 tab BEDTIME PRN Administration CONSTIPATION Vital Signs: Vital Signs Temp Pulse Resp BP Pulse Ox 97.9 F 69 16 135/86 98 04/24/18 07:05 04/24/18 07:05 04/24/18 07:05 04/24/18 07:05 04/24/18 07:05 Exam: GENERAL: no acute distress. alert and appropriate. LUNGS: clear to auscultation bilaterally. HEART: regular rate and rhythm ABDOMEN: + bowel sounds, soft, non-tender, non-distended EXTREMITIES: no edema. lacks full extension in the left elbow NEUROLOGIC: Left cranial nerve VII palsy. 5/5 motor in her right upper and lower extremity with normal sensation. Left UE 2/5 shoulder adduction. LLE motor showed 3/5 knee ext and hip extension, trace ankle PF. Sensation impaired on left side. Assessment/Plan: 1. Intracranial hemorrhage. Will need repeat MRI of her brain in several weeks ; follow up with Neurology. 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 2. F/E/N: Mechanical soft diet and thin liquids per speech.. On MgOx 400mg BID and KCL 20mEq daily. 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 Educated on ROM and stretching daily. 4. Hypertension. Continue with Norvasc. 5. Advanced Directives: She is a full code. Her son, Jt, is her surrogate decision maker. 6. DVT Prophylaxis: TEDs. Blood thinners contraindicated due to ICH 7. Estimated LOS: estimate d/c around 05/06/18. 04/23/18 20:09
[2018-04-25] MEDS: Heparin VIAL(*) 5000 UNITS/ML VIAL (FIVE THOUSAND) SUBCUT SCH ×3 (06:28→20:51)
[2018-04-25] MEDS: amLODIPine TAB* 5 MG PO SCH (07:37)
[2018-04-25] MEDS: [UNRECOGNIZED DRUG - OTHER] PO SCH ×2 (07:38→20:51)
[2018-04-25] MEDS: [UNRECOGNIZED DRUG - OTHER] PO SCH (07:38)
[2018-04-25] MEDS: Magnesium Oxide TAB* 400 MG PO SCH ×2 (07:38→20:50)
[2018-04-25] MEDS: Potassium Chlor TAB* 20 MEQ TAB.ER PO SCH (07:38)
[2018-04-25] MEDS: Polyethylene Glycol 3350* 17 GM PACKET PO SCH (07:39)
[2018-04-25] MEDS: [UNRECOGNIZED DRUG - OTHER] PO SCH (07:39)
[2018-04-25] MEDS: Docusate CAP* 100 MG PO SCH ×2 (07:39→20:51)
--- NOTE | 2018-04-25 16:39 | PN ---
Progress Note Date of Service: 04/25/18 Note: VERÓNICA DEGROOT was visited. Therapy notes read and reviewed. She is making gains with her abilities to transfer and ambulate. Progress is slow, but consistent Current Medications: Active Medications Generic Name Dose Route Start Last Admin Trade Name Freq PRN Reason Stop Dose Admin Acetaminophen 650 mg 03/21/18 11:15 Tylenol Tab* PO Q4H PRN FEVER > 101 Al Hydrox/Mg Hydrox/Simethicone 30 ml 03/21/18 11:15 Maalox Plus* PO Q6H PRN INDIGESTION Amlodipine Besylate 5 mg 03/22/18 09:00 04/25/18 07:37 Norvasc Tab* PO 5 mg DAILY TIMA Administration Bisacodyl 10 mg 03/21/18 11:49 Dulcolax Supp* [place] DAILY PRN CONSTIPATION Calcium Carbonate 1,250 mg 03/21/18 11:52 04/01/18 09:13 Calcium Carbonate Tab* PO 1,250 mg BID PRN Administration indigestion Docusate Sodium 200 mg 03/21/18 21:00 04/25/18 07:39 Colace Cap* PO Not Given BID TIMA Heparin Sodium (Porcine) 5,000 units 03/21/18 14:00 04/25/18 13:04 Heparin Vial(*) SUBCUT 5,000 units Q8HR TIMA Administration Magnesium Oxide 400 mg 04/02/18 21:00 04/25/18 07:38 Magox 400 Tab* PO 400 mg BID TIMA Administration Pto:(Coromega [place]- 1 packet 03/22/18 09:00 04/25/18 07:39 3 1 Packet) PO Not Given QAM TIMA (Echinacea Goldseal 1 cap 03/27/18 09:00 04/25/18 07:38 1 Cap) PO 1 cap BID TIMA Administration Pto: (Advanced 2 cap 03/27/18 09:00 04/25/18 07:38 Acidophilus Cap) PO 2 cap DAILY TIMA Administration Polyethylene Glycol/Electrolytes 17 gm 03/22/18 09:00 04/25/18 07:39 Miralax* PO Not Given DAILY TIMA Potassium Chloride 20 meq 03/27/18 09:00 04/25/18 07:38 Klor Con Er Tab* PO 20 meq DAILY TIMA Administration Senna 2 tab 03/21/18 11:15 04/09/18 20:43 Senokot Tab* PO 2 tab BEDTIME PRN Administration CONSTIPATION Vital Signs: Vital Signs Temp Pulse Resp BP Pulse Ox 98.0 F 76 20 104/68 97 04/25/18 16:08 04/25/18 16:08 04/25/18 16:08 04/25/18 16:08 04/25/18 16:08 Exam: GENERAL: no acute distress. alert and appropriate. LUNGS: clear to auscultation bilaterally. HEART: regular rate and rhythm ABDOMEN: + bowel sounds, soft, non-tender, non-distended EXTREMITIES: no edema. lacks full extension in the left elbow NEUROLOGIC: Left cranial nerve VII palsy. 5/5 motor in her right upper and lower extremity with normal sensation. Left UE 2/5 shoulder adduction. LLE motor showed 3/5 knee ext and hip extension, trace ankle PF. Sensation impaired on left side. Assessment/Plan: 1. Intracranial hemorrhage. Will need repeat MRI of her brain in several weeks ; follow up with Neurology. 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 2. F/E/N: Mechanical soft diet and thin liquids per speech.. On MgOx 400mg BID and KCL 20mEq daily. 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 Educated on ROM and stretching daily. 4. Hypertension. Continue with Norvasc. 5. Advanced Directives: She is a full code. Her son, Jt, is her surrogate decision maker. 6. DVT Prophylaxis: TEDs. Blood thinners contraindicated due to ICH 7. Estimated LOS: estimate d/c around 05/06/18. 04/25/18 16:40
[2018-04-26] MEDS: Heparin VIAL(*) 5000 UNITS/ML VIAL (FIVE THOUSAND) SUBCUT SCH ×3 (07:23→21:05)
[2018-04-26] MEDS: [UNRECOGNIZED DRUG - OTHER] PO SCH (09:50)
[2018-04-26] MEDS: Potassium Chlor TAB* 20 MEQ TAB.ER PO SCH (09:51)
[2018-04-26] MEDS: Magnesium Oxide TAB* 400 MG PO SCH ×2 (09:51→20:50)
[2018-04-26] MEDS: [UNRECOGNIZED DRUG - OTHER] PO SCH (09:51)
[2018-04-26] MEDS: [UNRECOGNIZED DRUG - OTHER] PO SCH ×2 (09:51→20:50)
[2018-04-26] MEDS: Docusate CAP* 100 MG PO SCH ×2 (09:52→21:12)
[2018-04-26] MEDS: Polyethylene Glycol 3350* 17 GM PACKET PO SCH (09:58)
[2018-04-26] MEDS: amLODIPine TAB* 5 MG PO SCH (10:01)
--- NOTE | 2018-04-26 14:59 | PN ---
Progress Note Date of Service: 04/26/18 Note: VERÓNICA DEGROOT was visited. Nursing notes read and reviewed. She is doing fairly well without complaints. Meeting next week Current Medications: Active Medications Generic Name Dose Route Start Last Admin Trade Name Freq PRN Reason Stop Dose Admin Acetaminophen 650 mg 03/21/18 11:15 Tylenol Tab* PO Q4H PRN FEVER > 101 Al Hydrox/Mg Hydrox/Simethicone 30 ml 03/21/18 11:15 Maalox Plus* PO Q6H PRN INDIGESTION Amlodipine Besylate 5 mg 03/22/18 09:00 04/26/18 10:01 Norvasc Tab* PO 5 mg DAILY TIMA Administration Bisacodyl 10 mg 03/21/18 11:49 Dulcolax Supp* [place] DAILY PRN CONSTIPATION Calcium Carbonate 1,250 mg 03/21/18 11:52 04/01/18 09:13 Calcium Carbonate Tab* PO 1,250 mg BID PRN Administration indigestion Docusate Sodium 200 mg 03/21/18 21:00 04/26/18 09:52 Colace Cap* PO Not Given BID TIMA Heparin Sodium (Porcine) 5,000 units 03/21/18 14:00 04/26/18 13:43 Heparin Vial(*) SUBCUT 5,000 units Q8HR TIMA Administration Magnesium Oxide 400 mg 04/02/18 21:00 04/26/18 09:51 Magox 400 Tab* PO 400 mg BID TIMA Administration Pto:(Coromega [place]- 1 packet 03/22/18 09:00 04/26/18 09:50 3 1 Packet) PO Not Given QAM TIMA (Echinacea Goldseal 1 cap 03/27/18 09:00 04/26/18 09:51 1 Cap) PO 1 cap BID TIMA Administration Pto: (Advanced 2 cap 03/27/18 09:00 04/26/18 09:51 Acidophilus Cap) PO 2 cap DAILY TIMA Administration Polyethylene Glycol/Electrolytes 17 gm 03/22/18 09:00 04/26/18 09:58 Miralax* PO Not Given DAILY TIMA Potassium Chloride 20 meq 03/27/18 09:00 04/26/18 09:51 Klor Con Er Tab* PO 20 meq DAILY TIMA Administration Senna 2 tab 03/21/18 11:15 04/09/18 20:43 Senokot Tab* PO 2 tab BEDTIME PRN Administration CONSTIPATION Vital Signs: Vital Signs Temp Pulse Resp BP Pulse Ox 98.2 F 79 18 110/74 100 04/26/18 07:24 04/26/18 07:24 04/26/18 08:00 04/26/18 10:02 04/26/18 08:00 Exam: GENERAL: no acute distress. alert and appropriate. LUNGS: clear to auscultation bilaterally. HEART: regular rate and rhythm ABDOMEN: + bowel sounds, soft, non-tender, non-distended EXTREMITIES: no edema. lacks full extension in the left elbow NEUROLOGIC: Left cranial nerve VII palsy. 5/5 motor in her right upper and lower extremity with normal sensation. Left UE 2/5 shoulder adduction. LLE motor showed 3/5 knee ext and hip extension, trace ankle PF. Sensation impaired on left side. Assessment/Plan: 1. Intracranial hemorrhage. Will need repeat MRI of her brain in several weeks ; follow up with Neurology. 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 2. F/E/N: Mechanical soft diet and thin liquids per speech.. On MgOx 400mg BID and KCL 20mEq daily. 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 ROM and stretching daily. 4. Hypertension. Continue with Norvasc. 5. Advanced Directives: She is a full code. Her son, Jt, is her surrogate decision maker. 6. DVT Prophylaxis: TEDs. Blood thinners contraindicated due to ICH 7. Estimated LOS: estimate d/c around 05/06/18. 04/26/18 14:59
[2018-04-27] MEDS: Heparin VIAL(*) 5000 UNITS/ML VIAL (FIVE THOUSAND) SUBCUT SCH ×3 (05:00→22:05)
[2018-04-27] MEDS: Potassium Chlor TAB* 20 MEQ TAB.ER PO SCH (09:08)
[2018-04-27] MEDS: [UNRECOGNIZED DRUG - OTHER] PO SCH (09:09)
[2018-04-27] MEDS: Magnesium Oxide TAB* 400 MG PO SCH ×2 (09:09→22:04)
[2018-04-27] MEDS: [UNRECOGNIZED DRUG - OTHER] PO SCH ×2 (09:09→22:04)
[2018-04-27] MEDS: amLODIPine TAB* 5 MG PO SCH (09:09)
[2018-04-27] MEDS: Polyethylene Glycol 3350* 17 GM PACKET PO SCH (09:10)
[2018-04-27] MEDS: [UNRECOGNIZED DRUG - OTHER] PO SCH (09:10)
[2018-04-27] MEDS: Docusate CAP* 100 MG PO SCH ×2 (09:10→22:06)
--- NOTE | 2018-04-27 20:20 | PN ---
Progress Note Date of Service: 04/27/18 Note: VERÓNICA DEGROOT was visited. Nursing notes read and reviewed. No acute issues. Working to see if she can get home. Family meeting needed when her son is back in town. Current Medications: Active Medications Generic Name Dose Route Start Last Admin Trade Name Freq PRN Reason Stop Dose Admin Acetaminophen 650 mg 03/21/18 11:15 Tylenol Tab* PO Q4H PRN FEVER > 101 Al Hydrox/Mg Hydrox/Simethicone 30 ml 03/21/18 11:15 Maalox Plus* PO Q6H PRN INDIGESTION Amlodipine Besylate 5 mg 03/22/18 09:00 04/27/18 09:09 Norvasc Tab* PO 5 mg DAILY TIMA Administration Bisacodyl 10 mg 03/21/18 11:49 Dulcolax Supp* [place] DAILY PRN CONSTIPATION Calcium Carbonate 1,250 mg 03/21/18 11:52 04/01/18 09:13 Calcium Carbonate Tab* PO 1,250 mg BID PRN Administration indigestion Docusate Sodium 200 mg 03/21/18 21:00 04/27/18 09:10 Colace Cap* PO Not Given BID TIMA Heparin Sodium (Porcine) 5,000 units 03/21/18 14:00 04/27/18 14:31 Heparin Vial(*) SUBCUT 5,000 units Q8HR TIMA Administration Magnesium Oxide 400 mg 04/02/18 21:00 04/27/18 09:09 Magox 400 Tab* PO 400 mg BID TIMA Administration Pto:(Coromega [place]- 1 packet 03/22/18 09:00 04/27/18 09:10 3 1 Packet) PO Not Given QAM TIMA (Echinacea Goldseal 1 cap 03/27/18 09:00 04/27/18 09:09 1 Cap) PO 1 cap BID TIMA Administration Pto: (Advanced 2 cap 03/27/18 09:00 04/27/18 09:09 Acidophilus Cap) PO 2 cap DAILY TIMA Administration Polyethylene Glycol/Electrolytes 17 gm 03/22/18 09:00 04/27/18 09:10 Miralax* PO Not Given DAILY TIMA Potassium Chloride 20 meq 03/27/18 09:00 04/27/18 09:08 Klor Con Er Tab* PO 20 meq DAILY TIMA Administration Senna 2 tab 03/21/18 11:15 04/09/18 20:43 Senokot Tab* PO 2 tab BEDTIME PRN Administration CONSTIPATION Vital Signs: Vital Signs Temp Pulse Resp BP Pulse Ox 98.3 F 82 20 106/71 99 04/27/18 15:35 04/27/18 15:35 04/27/18 15:35 04/27/18 15:35 04/27/18 15:35 Exam: LUNGS: clear to auscultation bilaterally. HEART: regular rate and rhythm ABDOMEN: + bowel sounds, soft, non-tender, non-distended EXTREMITIES: no edema. lacks full extension in the left elbow NEUROLOGIC: Left CN VII palsy. 5/5 motor in her right upper and lower extremity with normal sensation. Left UE 2/5 shoulder adduction. LLE motor showed 3/5 knee ext and hip extension, trace ankle PF. Sensation impaired on left side. Assessment/Plan: 1. Intracranial hemorrhage. Will need repeat MRI of her brain after she leaves , then follow up with Neurology. 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 2. F/E/N: Mechanical soft diet and thin liquids per speech.. On MgOx 400mg BID and KCL 20mEq daily. 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 ROM and stretching daily. 4. Hypertension. Continue with Norvasc. 5. Advanced Directives: She is a full code. Her son, Jt, is her surrogate decision maker. 6. DVT Prophylaxis: TEDs. Blood thinners contraindicated due to ICH 7. Estimated LOS: estimate d/c around 05/06/18. 04/27/18 20:20
[2018-04-28] MEDS: Heparin VIAL(*) 5000 UNITS/ML VIAL (FIVE THOUSAND) SUBCUT SCH ×3 (06:11→21:09)
[2018-04-28] MEDS: amLODIPine TAB* 5 MG PO SCH (09:53)
[2018-04-28] MEDS: Magnesium Oxide TAB* 400 MG PO SCH ×2 (09:54→20:05)
[2018-04-28] MEDS: [UNRECOGNIZED DRUG - OTHER] PO SCH ×2 (09:54→20:05)
[2018-04-28] MEDS: [UNRECOGNIZED DRUG - OTHER] PO SCH (09:54)
[2018-04-28] MEDS: Potassium Chlor TAB* 20 MEQ TAB.ER PO SCH (09:54)
[2018-04-28] MEDS: Docusate CAP* 100 MG PO SCH ×2 (09:56→20:07)
[2018-04-28] MEDS: Polyethylene Glycol 3350* 17 GM PACKET PO SCH (09:56)
[2018-04-28] MEDS: [UNRECOGNIZED DRUG - OTHER] PO SCH (09:57)
--- NOTE | 2018-04-28 16:43 | PN ---
Progress Note Date of Service: 04/28/18 Note: VERÓNICA DEGROOT was visited. Therapy notes read and reviewed. I met with Agnes and her son Jt. Her discharge date is approaching. She has made a lot of gains. She will be close to independent by her date. I asked them both to consider an alternate plan if she is not able to achieve independence. Current Medications: Active Medications Generic Name Dose Route Start Last Admin Trade Name Freq PRN Reason Stop Dose Admin Acetaminophen 650 mg 03/21/18 11:15 Tylenol Tab* PO Q4H PRN FEVER > 101 Al Hydrox/Mg Hydrox/Simethicone 30 ml 03/21/18 11:15 Maalox Plus* PO Q6H PRN INDIGESTION Amlodipine Besylate 5 mg 03/22/18 09:00 04/28/18 09:53 Norvasc Tab* PO 5 mg DAILY TIMA Administration Bisacodyl 10 mg 03/21/18 11:49 Dulcolax Supp* [place] DAILY PRN CONSTIPATION Calcium Carbonate 1,250 mg 03/21/18 11:52 04/01/18 09:13 Calcium Carbonate Tab* PO 1,250 mg BID PRN Administration indigestion Docusate Sodium 200 mg 03/21/18 21:00 04/28/18 09:56 Colace Cap* PO Not Given BID TIMA Heparin Sodium (Porcine) 5,000 units 03/21/18 14:00 04/28/18 14:12 Heparin Vial(*) SUBCUT 5,000 units Q8HR TIMA Administration Magnesium Oxide 400 mg 04/02/18 21:00 04/28/18 09:54 Magox 400 Tab* PO 400 mg BID TIMA Administration Pto:(Coromega [place]- 1 packet 03/22/18 09:00 04/28/18 09:57 3 1 Packet) PO Not Given QAM TIMA (Echinacea Goldseal 1 cap 03/27/18 09:00 04/28/18 09:54 1 Cap) PO 1 cap BID TIMA Administration Pto: (Advanced 2 cap 03/27/18 09:00 04/28/18 09:54 Acidophilus Cap) PO 2 cap DAILY TIMA Administration Polyethylene Glycol/Electrolytes 17 gm 03/22/18 09:00 04/28/18 09:56 Miralax* PO Not Given DAILY TMIA Potassium Chloride 20 meq 03/27/18 09:00 04/28/18 09:54 Klor Con Er Tab* PO 20 meq DAILY TIMA Administration Senna 2 tab 03/21/18 11:15 04/09/18 20:43 Senokot Tab* PO 2 tab BEDTIME PRN Administration CONSTIPATION Vital Signs: Vital Signs Temp Pulse Resp BP Pulse Ox 98.3 F 67 18 110/76 97 04/28/18 15:47 04/28/18 15:47 04/28/18 15:47 04/28/18 15:47 04/28/18 15:47 Exam: LUNGS: clear to auscultation bilaterally. HEART: regular rate and rhythm ABDOMEN: + bowel sounds, soft, non-tender, non-distended EXTREMITIES: no edema. lacks full extension in the left elbow NEUROLOGIC: Left CN VII palsy. 5/5 motor in her right upper and lower extremity with normal sensation. Left UE 2/5 shoulder adduction. LLE motor showed 3/5 knee ext and hip extension, trace ankle PF. Sensation impaired on left side. Assessment/Plan: 1. Intracranial hemorrhage. Will need repeat MRI of her brain after she leaves , then follow up with Neurology. 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 2. F/E/N: Mechanical soft diet and thin liquids per speech.. On MgOx 400mg BID and KCL 20mEq daily. 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 ROM and stretching daily. 4. Hypertension. Continue with Norvasc. 5. Advanced Directives: She is a full code. Her son, Jt, is her surrogate decision maker. 6. DVT Prophylaxis: TEDs. Blood thinners contraindicated due to ICH 7. Estimated LOS: estimate d/c around 05/06/18. 04/28/18 16:43
[2018-04-29] MEDS: Heparin VIAL(*) 5000 UNITS/ML VIAL (FIVE THOUSAND) SUBCUT SCH ×3 (06:26→21:45)
[2018-04-29] MEDS: [UNRECOGNIZED DRUG - OTHER] PO SCH (09:52)
[2018-04-29] MEDS: Magnesium Oxide TAB* 400 MG PO SCH ×2 (09:52→20:02)
[2018-04-29] MEDS: Potassium Chlor TAB* 20 MEQ TAB.ER PO SCH (09:52)
[2018-04-29] MEDS: amLODIPine TAB* 5 MG PO SCH (09:52)
[2018-04-29] MEDS: [UNRECOGNIZED DRUG - OTHER] PO SCH ×2 (09:53→20:05)
[2018-04-29] MEDS: Polyethylene Glycol 3350* 17 GM PACKET PO SCH (09:54)
[2018-04-29] MEDS: [UNRECOGNIZED DRUG - OTHER] PO SCH (09:54)
[2018-04-29] MEDS: Docusate CAP* 100 MG PO SCH ×2 (09:54→19:55)
--- NOTE | 2018-04-29 12:30 | PMRUTEAM ---
PMRU: Team Meeting Current Status: Nursing: Current Status Skin Deviations [Left Elbow] Other Skin Deviations [Abdomen] Bruise Skin Deviations [Coccyx] Other Skin Deviations [Right Groin] Previous Access Point Skin Deviation Description [ no deviation noted Left Elbow] Skin Deviation Description [ Heparin injections Abdomen] Skin Deviation Description [ slightly reddened Coccyx] Skin Deviation Description [ healed Right Groin] Bladder Current Status voiding Bowel Current Status daily bowel mov'ts Nutrition Current Status appetite good Medication Current Status Pt w good understanding of medications Physical Therapy: Current Status Bed Mobility Assistance Contact Guard Assist Transfer Moblility Assistance Supervision,Contact Guard Assist Transfer/Bed Mobility Manoj Walker Recommended Devices Ambulation Assistance Contact Guard Assist,Min Assist Ambulation Assistive Devices Manoj Walker Number of Feet Patient 20, 150 Ambulated Stairs Assistance Mod Assist Stairs Recommended Devices One Rail Number of Stairs 2x2, 6 inch steps Manual Wheelchair Control/ Right UE/Right LE Technique Wheelchair Propulsion Ability Standby Assistance Wheelchair Distance (ft) 150 Objective Comments patient continues to need cuing for safety in W/c mobiltiy, continues to drift to L and have poor L side spatial awareness. Occupational Therapy: Current Status Upper Body Dressing Supervision Lower Body Dressing Supervision Lower Body Dressing Progress mod - min. More I when doing in bed Bathing Min Assist Bathing Progress in shower w/c Toileting Min Assist Toileting Progress rolling in bed or standing at bedrail Toilet Transfer Contact Guard Assist Toilet Transfer Progress SPT off of commode Shower Transfer Contact Guard Assist Shower Transfer Progress not attempted showers in w/c Eating Independent Eating Progress set up Rec Therapy: Current Status Summary of Assessment and RT assessment complete and pt. is aware of Clinical Impression services. Pt. has been actively engaged in leisure activities and sessions while on the unit. Treatment Goals Patient will engage in recreation and leisure activities while on the unit. Treatment Plan Provide and encourage involvement in RT services. Social Work: Current Status Discharge Plan return home with home care svs and family support Potential for Family Training pt's son is involved and supportive Anticipated Discharge Home Destination Discharge With home care svs and family support Nutrition: Current Status Monitoring Pt has been consistently consuming 100% of meals ( 04/26-); anticipate current intake to be adequate . Pt tolerating regular diet textures well, w/o difficulty chewing/swallowing per nursing assessment. No GI s/sx, such as N/V, noted. Agree w/ continuation of current diet (regular). Per chart, pt w/o pressure related skin breakdown. Last BM documented 04/29. No labs to review since , however Mg still noted to be low at that time (1.6). Pt is receiving supplementation BID. Will follow labs as available. Will remain available to provide diet education as indicated. Speech: Current Status Assessment On the [place] Cognitive Assessment (MOCA) Emily. 7 .2, patient scored 27/30, where 26 or greater is within normal limits. This result indicates the patient's cognitive-communication status is within functional limits. Patient has met all cognitive-communication goals. Recommend discharge skilled speech therapy interventions. Speech Current Status Goal 1 Within Functional linits Speech Goal 2 Current Status Mild impairment Speech Goal 3 Current Status Mild impairment Goals: Physical Therapy: Initial Goals Bed Mobility Assistance Independent Transfer Mobility Assistance Independent Transfer/Bed Mobility Manoj Walker Recommended Devices Ambulation Independent Ambulation Recommended Devices Manoj Walker Ambulation Distance 50 Wheelchair Propulsion Ability Independent Stairs Assistance Independent Stair Recommended Devices One Rail Number of Stairs 5 Physical Therapy: Updated Goals Transfer/Bed Mobility Lisa Lift Recommended Devices Occupational Therapy: Initial Goals Goals to be Completed in (Days 4-6 weeks ) Upper Body Bathing Routine Modified Independent with Lower Body Bathing Routine Modified Independent with Upper Body Dressing Routine Modified Independent with Lower Body Dressing Routine Modified Independent with Toilet Hygeine and Clothing Modified Independent with Management Routine Toilet Transfer Routine Modified Independent with Tub Transfer Routine Supervision/Set Up Functional Transfers for ADL Modified Independent with Grooming Routine Modified Independent with Feeding Routine Modified Independent with Nursing: Goals Bladder Goal indep Bowel Goal indep Nutrition Goal indep Medication Goal indep Nutrition: Goals Intervention Goals 1. Pt will tolerate least-restrictive diet texture without s/sx difficulty chewing 2. Intake will remain >75% of meals 3. Intake will be adequate to maintain stable wt, hydration, and lean body mass 4. Serum magnesium will return to normal range w/ daily supplementation and diet education 5. Pt will receive education re: high magnesium food sources Speech: Goals Speech Goal 1 Comprehension Speech Evaluation Status Goal Mild-moderate impairment 1 Speech Current Status Goal 1 Within Functional linits Goal 1 Comments Long-Term Goal: Pt will use compensatory strategies to demonstrate comprehension of paragraph length verbal and written information of moderate complexity, 100% accuracy, given minimal extra time, Independently. Status: Met. Short-Term Goal: Pt will use compensatory strategies to attend to information in the Left visual field and demonstrate comprehension of paragraph length verbal and written information of moderate complexity, 95% accuracy, given moderate extra time, Independently. Status: Met. SEGREGATOR directed patient to summarize her independent reading in the novel we had previously practiced left-sode scanning techniques. Patient summarized accurately using specific names, laces and events. Patient read and summarized 3 paragraphs accurately, with no neglect of left edge of lines or words, and accurate descripion of actions. Speech Goal 2 Problem Solving Speech Goal 2 Evaluation Moderate impairment Status Speech Goal 2 Current Status Mild impairment Speech Goal 2 Comments Long-Term Goal: Patient will use compensatory strategies to solve moderately complex routine problems, with 100% accuracy, Independently, for ADLs such as shopping, time and money management. Status: Met. Short-Term Goal: Patient will use compensatory strategies to attend to information in the Left visual field to solve moderately complex problems, with 90% accuracy, given Minimal skilled instruction and cueing. Status: Met. SEGREGATOR conducted further skilled cognitive- communication testing. On the [place] Cognitive Assessment (MOCA) Emily. 7 .2, patient scored 27/30, where 26 or greater is within normal limits. Subscores for task domains: Visuospatial/Executive: 3/5 (-2: copying 3D rectangle, clock hands equal) Namin/3 Attention: 6/6 Language: 5/6 (-1: changed 1 of 21 words in sentence repetition) Abstraction: 2/2 Delayed Recall: 5/5 Orientation: 6/6. This result indicates the patient's cognitive- communication status is within functional limits. Speech Goal 3 Motor speech Speech Goal 3 Evaluation Moderate impairment Status Speech Goal 3 Current Status Mild impairment Speech Goal 3 Comments Usp Goal: Patient will demonstrate improvement in range and rate of motion of her Left side labial retractors, elevators and depressors, to 90% of Right side, to achieve functional ability to eat and drink without spillage, speak with minimal distortion, and make appropriate facial expressions. Status: Met Short Term Goal: Patient will demonstrate improvement in range and rate of motion of her Left side labial retractors, elevators and depressors, to 90% of Right side, achieve functional ability to eat and drink without spillage, speak with minimal distortion, and make appropriate facial expressions, given Minimal cueing. Status: Met Patient completed oral motor exercises and repeated multipsyllabic target wordswith 100% intelligibility. Patient demonstrated symmetrical face at rest, symmetrical spontaneous fsacial expression including smile and frown, and 95-100% symmetrical isolated movements including Left side lip retraction and depression. Mildly decreased medial-left upper lip elevation does not impair functional use for expression and eating. Social Work: Goals Discharge Plan return home with home care svs and family support Potential for Family Training pt's son is involved and supportive Anticipated Discharge Home Destination Discharge With home care svs and family support Care Plan: Care Plan ADL's - Improve/Maintain Start: 03/23/18 00:21 Freq: DAILY Status: Active Target: Protocol: Activity Type Activity Date Activity User E-Sign Co-Sign Detail Recorded Client Recorded Date Recorded By Document 04/24/18 16:23 [id number] 04/24/18 16:23 [id number] 04/24/18 16:23 PMRU Outcome: ADL's/ADL Transfers Orders/Interventions Occupational Therapy Evaluation & Treatment Communication Tool in Patient Room Patient to receive OT 5x/wk for 60-120 Therex min/day Self Care Management Group Therapy Neuromuscular ReEducation UE/LE ADL's with Assist Yes: mod I ADL Transfers with Assist Yes: mod I Toileting: Transfers,Clothing Management Yes: mod I ,Hygeine w/Assist Progression Toward Outcome/Goals Progressing Outcome/Goals Met Pt made significant progress in dressing ADL today- completing UE and LE dressing with set up in bed. Pt requires significant extra time for dressing partially d/t required transfers in and out of bed prior to and after dressing. Pt SPT were consistently min A from health underwriter today which demonstrates improvement. Pt excited about progress in dressing. [ End ] Communication-Improve/Maintain Start: 03/23/18 00:21 Freq: DAILY Status: Active Target: Protocol: Activity Type Activity Date Activity User E-Sign Co-Sign Detail Recorded Client Recorded Date Recorded By Document 04/28/18 15:43 [id number] 04/28/18 15:43 [id number] 04/28/18 15:43 PMRU Outcome: Communication/Cognitive Status Outcome/Goals Makes Needs Known Effectively Other Outcomes/Goals Comprehension Long-Term Goal: Pt will use compensatory strategies to demonstrate comprehension of paragraph length verbal and written information of moderate complexity, 100 % accuracy, given minimal extra time, Independently. Short-Term Goal : Pt will use compensatory strategies to attend to information in the Left visual field and demonstrate comprehension of paragraph length verbal and written information of moderate complexity, 95% accuracy, given moderate extra time, Independently. Status: Progressing as expected. Long-Term Goal: Patient will use compensatory strategies to solve moderately complex routine problems, with 100% accuracy, Independently, for ADLs such as shopping, time and money management. Short-Term Goal : Patient will use compensatory strategies to attend to information in the Left visual field to solve moderately complex problems, with 90% accuracy, given Minimal skilled instruction and cueing. Status: Progressing as expected. Motor Speech Sales Operations Goal: Patient will demonstrate improvement in range and rate of motion of her Left side labial retractors, elevators and depressors, to 90% of Right side, to achieve functional ability to eat and drink without spillage, speak with minimal distortion, and make appropriate facial expressions. Short Term Goal : Patient will demonstrate improvement in range and rate of motion of her Left side labial retractors, elevators and depressors, to 90% of Right side, achieve functional ability to eat and drink without spillage, speak with minimal distortion, and make appropriate facial expressions, given Minimal cueing. Status: Progressing as expected. Progression Toward Outcomes/Goals Progressing Discharge Planning - Improve/Maintain Start: 03/23/18 00:21 Freq: DAILY Status: Active Target: Protocol: Activity Type Activity Date Activity User E-Sign Co-Sign Detail Recorded Client Recorded Date Recorded By Document 04/28/18 15:43 [id number] [id number] 04/28/18 15:43 [id number] 04/28/18 15:43 PMRU Outcome: Discharge Planning Update Patient Family No Outcome/Goals Demonstrates Understanding of Discharge Plan Progression Toward Outcome/Goals Progressing Education-Improve/Maintain Start: 03/23/18 00:21 Freq: QSHIFT Status: Active Target: Protocol: Activity Type Activity Date Activity User E-Sign Co-Sign Detail Recorded Client Recorded Date Recorded By Document 04/29/18 08:00 [id number] [id number] 04/29/18 10:24 [id number] 04/29/18 08:00 PMRU Outcome: Education Outcome/Goals Encourage Questions Progression Toward Outcome/Goals Progressing /GI-Improve/Maintain Start: 03/23/18 00:21 Freq: QSHIFT Status: Active Target: Protocol: Activity Type Activity Date Activity User E-Sign Co-Sign Detail Recorded Client Recorded Date Recorded By Document 04/29/18 08:00 [id number] 04/29/18 10:24 [id number] 04/29/18 08:00 PMRU Outcome: Genitourinary/ Gastrointestinal Genitourinary- Outcome/Goals Maintain/ Achieve Urinary Continence Gastrointestinal-Outcome/Goals Maintain/ Achieve Bowel Regularity in Accordance with Pt's Baseline Prevent Constipation Laxatives as Ordered Progression Toward Outcome/Goals - Progressing Progression Toward Outcome/Goals - GI Progressing Mobility- Improve/Maintain Start: 03/21/18 17:34 Freq: DAILY Status: Active Target: Protocol: Activity Type Activity Date Activity User E-Sign Co-Sign Detail Recorded Client Recorded Date Recorded By Document 03/26/18 16:51 [id number] 03/26/18 16:51 [id number] 03/26/18 16:51 PMRU Outcome: Mobility Physical Therapy Evaluation and Yes Treatment Activity OOB with Assistance Yes WBAT Yes Device Yes Assistance Yes Patient to be seen 5x/wk for 60-120 min/ Therex day for: Mobility Training Gait Training W/C Mobility Balance Outcome/Goals Maintain/ Achieve Baseline Mobility Status Improve Mobility Status Demonstrates Proper Use of Assistive Devices Free from Complications of Immobility Progression Toward Outcome/Goals Progressing Outcome/Goals Met Comment improved ability to extend LLE against gravity Bed Mobility Yes: independnet Transfers Yes: independent with manoj walker Gait x ft Yes: independent with hemiwalker 50' W/C Mobility x ft Yes: independent with RU/LE 300' Up/Down Stairs Yes: inddependent up /down 5 stairs. Neurological- Improve/Maintain Start: 03/23/18 00:21 Freq: QSHIFT Status: Active Target: Protocol: Activity Type Activity Date Activity User E-Sign Co-Sign Detail Recorded Client Recorded Date Recorded By Document 04/29/18 08:00 [id number] 04/29/18 10:24 [id number] 04/29/18 08:00 PMRU Outcome: Neurological Weakness/Aphasia Weakness Left Side Weakness/Aphasia Comment Left sided weakness, CVA Outcome/Goals Maintain/ Achieve Baseline Neurological Status Improve Neurological Status Prevent Avoidable Neurological Decline Maintain/ Improve Strength/ROM Progression Toward Outcome/Goals Progressing Pain/Comfort- Improve/Maintain Start: 03/23/18 00:21 Freq: QSHIFT Status: Complete Target: Protocol: Activity Type Activity Date Activity User E-Sign Co-Sign Detail Recorded Client Recorded Date Recorded By Document 04/25/18 10:07 [id number] 04/25/18 10:08 [id number] 04/25/18 10:07 PMRU Outcome: Pain/Comfort Outcome/Goals Demonstrates Knowledge and Use of Available Comfort Measures Achieves Acceptable Comfort/Pain Level as Determined by Patient/Condit Maintain Comfort Level Allowing Patient to Fully Participate in Rehab Progression Toward Outcome/Goals Progressing Outcome/Goals Met Comment no c/o pain verbalized Safety- Improve/Maintain Start: 03/23/18 00:21 Freq: QSHIFT Status: Active Target: Protocol: Activity Type Activity Date Activity User E-Sign Co-Sign Detail Recorded Client Recorded Date Recorded By Document 04/29/18 08:00 [id number] 04/29/18 10:24 [id number] 04/29/18 08:00 PMRU Outcome: Safety Outcome/Goals Remain Free of Injury or Harm Cooperates with Safety Measures for Least Restrictive Environment Prevent Falls/ Injury Progression Toward Outcome/Goals Progressing Skin- Improve/Maintain Start: 03/23/18 00:21 Freq: QSHIFT Status: Active Target: Protocol: Activity Type Activity Date Activity User E-Sign Co-Sign Detail Recorded Client Recorded Date Recorded By Document 04/29/18 08:00 [id number] 04/29/18 10:24 [id number] 04/29/18 08:00 PMRU Outcome: Skin Skin Risk Level Medium Skin Orders Air Mattress Multipodus Boot Dressing Change Comments splint to l hand, pillows Outcome/Goals Maintain/ Improve Skin Intergrity Free from Decubitus Progression Toward Outcome/Goals Progressing Medicine Note: Length of Stay: 2 weeks Anticipated Discharge Destination: Home Tentative Discharge Date: 05/13/18 Discharged to: Home
--- NOTE | 2018-04-29 16:32 | PN ---
Progress Note Date of Service: 04/29/18 Note: VERÓNICA DEGROOT was visited. Therapy notes read and reviewed. Agnes visited. She was discussed in interdisciplinary team rounds. She has made a lot of progress and is close to independent but will need a bit more work to get home Current Medications: Active Medications Generic Name Dose Route Start Last Admin Trade Name Freq PRN Reason Stop Dose Admin Acetaminophen 650 mg 03/21/18 11:15 Tylenol Tab* PO Q4H PRN FEVER > 101 Al Hydrox/Mg Hydrox/Simethicone 30 ml 03/21/18 11:15 Maalox Plus* PO Q6H PRN INDIGESTION Amlodipine Besylate 5 mg 03/22/18 09:00 04/29/18 09:52 Norvasc Tab* PO 5 mg DAILY TIMA Administration Bisacodyl 10 mg 03/21/18 11:49 Dulcolax Supp* [place] DAILY PRN CONSTIPATION Calcium Carbonate 1,250 mg 03/21/18 11:52 04/01/18 09:13 Calcium Carbonate Tab* PO 1,250 mg BID PRN Administration indigestion Docusate Sodium 200 mg 03/21/18 21:00 04/29/18 09:54 Colace Cap* PO Not Given BID TIMA Heparin Sodium (Porcine) 5,000 units 03/21/18 14:00 04/29/18 14:35 Heparin Vial(*) SUBCUT 5,000 units Q8HR TIMA Administration Magnesium Oxide 400 mg 04/02/18 21:00 04/29/18 09:52 Magox 400 Tab* PO 400 mg BID TIMA Administration Pto:(Coromega [place]- 1 packet 03/22/18 09:00 04/29/18 09:54 3 1 Packet) PO Not Given QAM TIMA (Echinacea Goldseal 1 cap 03/27/18 09:00 04/29/18 09:53 1 Cap) PO 1 cap BID TIMA Administration Pto: (Advanced 2 cap 03/27/18 09:00 04/29/18 09:52 Acidophilus Cap) PO 2 cap DAILY TIMA Administration Polyethylene Glycol/Electrolytes 17 gm 03/22/18 09:00 04/29/18 09:54 Miralax* PO Not Given DAILY TIMA Potassium Chloride 20 meq 03/27/18 09:00 04/29/18 09:52 Klor Con Er Tab* PO 20 meq DAILY TIMA Administration Senna 2 tab 03/21/18 11:15 04/09/18 20:43 Senokot Tab* PO 2 tab BEDTIME PRN Administration CONSTIPATION Vital Signs: Vital Signs Temp Pulse Resp BP Pulse Ox 98.3 F 67 18 110/76 97 04/28/18 15:47 04/28/18 15:47 04/29/18 01:24 04/28/18 15:47 04/29/18 16:25 Exam: LUNGS: clear to auscultation bilaterally. HEART: regular rate and rhythm ABDOMEN: + bowel sounds, soft, non-tender, non-distended EXTREMITIES: no edema. lacks full extension in the left elbow NEUROLOGIC: Left CN VII palsy. 5/5 motor in her right upper and lower extremity with normal sensation. Left UE 2/5 shoulder adduction. LLE motor showed 3/5 knee ext and hip extension, trace ankle PF. Sensation impaired on left side. Assessment/Plan: 1. Intracranial hemorrhage. Will need repeat MRI of her brain after she leaves , then follow up with Neurology. 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 2. F/E/N: Mechanical soft diet and thin liquids per speech.. On MgOx 400mg BID and KCL 20mEq daily. 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 ROM and stretching daily. 4. Hypertension. Continue with Norvasc. 5. Advanced Directives: She is a full code. Her son, Jt, is her surrogate decision maker. 6. DVT Prophylaxis: TEDs. Blood thinners contraindicated due to ICH 7. Estimated LOS: estimate d/c around 05/13/18. 04/29/18 16:32
[2018-04-30] MEDS: Heparin VIAL(*) 5000 UNITS/ML VIAL (FIVE THOUSAND) SUBCUT SCH ×3 (05:13→20:42)
[2018-04-30 05:19] LABS: ABS Basophils 0 10^3/ul (0-0.2); ABS Eosinophils 0.3 10^3/ul (0-0.6); ABS Lymphocytes 2.5 10^3/ul (1.0-4.8); ABS Neutrophils 4.1 10^3/ul (1.5-7.7); ABS Nucleated RBC 0 10^3/ul; Eosinophil % 3.4 % (0-6); Hematocrit 39 % (35-47); Hemoglobin 13.5 g/dl (12.0-16.0); Lymphocyte % 31.5 % (25-47); Mean Corpuscular HGB Conc 35 g/dl (31-36); Mean Corpuscular Hemoglobin 35 pg (27-31); Mean Corpuscular Volume 99 fL (80-97); Mean Platelet Volume 7.8 um3 (7.4-10.4); Nucleated Red Blood Cells % 0.1; Platelet Count 372 10^3/ul (150-450); Red Blood Count 3.89 10^6/ul (4.00-5.40); Red Cell Distribution Width 13 % (10.5-15); White Blood Count 7.8 10^3/ul (3.5-10.8)
[2018-04-30 05:35] LABS: EGFR Non-African American 90.5 (>60)
[2018-04-30] MEDS: [UNRECOGNIZED DRUG - OTHER] PO SCH ×2 (09:12→20:50)
[2018-04-30] MEDS: Potassium Chlor TAB* 20 MEQ TAB.ER PO SCH (09:12)
[2018-04-30] MEDS: [UNRECOGNIZED DRUG - OTHER] PO SCH (09:12)
[2018-04-30] MEDS: amLODIPine TAB* 5 MG PO SCH (09:13)
[2018-04-30] MEDS: [UNRECOGNIZED DRUG - OTHER] PO SCH (09:15)
[2018-04-30] MEDS: Magnesium Oxide TAB* 400 MG PO SCH ×2 (09:15→20:43)
[2018-04-30] MEDS: Docusate CAP* 100 MG PO SCH ×2 (09:16→20:43)
[2018-04-30] MEDS: Polyethylene Glycol 3350* 17 GM PACKET PO SCH (09:16)
[2018-04-30] MEDS: Acetaminophen TAB* 325 MG PO PRN (20:43)
--- NOTE | 2018-04-30 21:13 | PN ---
Progress Note Date of Service: 04/30/18 Note: VERÓNICA DEGROOT was visited. Therapy notes read and reviewed. She is doing pretty well today. Continuing to progress towards going home Current Medications: Active Medications Generic Name Dose Route Start Last Admin Trade Name Freq PRN Reason Stop Dose Admin Acetaminophen 650 mg 03/21/18 11:15 Tylenol Tab* PO Q4H PRN FEVER > 101 Al Hydrox/Mg Hydrox/Simethicone 30 ml 03/21/18 11:15 Maalox Plus* PO Q6H PRN INDIGESTION Amlodipine Besylate 5 mg 03/22/18 09:00 04/30/18 09:13 Norvasc Tab* PO 5 mg DAILY TIMA Administration Bisacodyl 10 mg 03/21/18 11:49 Dulcolax Supp* [place] DAILY PRN CONSTIPATION Calcium Carbonate 1,250 mg 03/21/18 11:52 04/01/18 09:13 Calcium Carbonate Tab* PO 1,250 mg BID PRN Administration indigestion Docusate Sodium 200 mg 03/21/18 21:00 04/30/18 09:16 Colace Cap* PO Not Given BID TIMA Heparin Sodium (Porcine) 5,000 units 03/21/18 14:00 04/30/18 14:25 Heparin Vial(*) SUBCUT 5,000 units Q8HR TIMA Administration Magnesium Oxide 400 mg 04/02/18 21:00 04/30/18 09:15 Magox 400 Tab* PO 400 mg BID TIMA Administration Pto:(Coromega [place]- 1 packet 03/22/18 09:00 04/30/18 09:15 3 1 Packet) PO Not Given QAM TIMA (Echinacea Goldseal 1 cap 03/27/18 09:00 04/30/18 09:12 1 Cap) PO 1 cap BID TIMA Administration Pto: (Advanced 2 cap 03/27/18 09:00 04/30/18 09:12 Acidophilus Cap) PO 2 cap DAILY TIMA Administration Polyethylene Glycol/Electrolytes 17 gm 03/22/18 09:00 04/30/18 09:16 Miralax* PO Not Given DAILY TIMA Potassium Chloride 20 meq 03/27/18 09:00 04/30/18 09:12 Klor Con Er Tab* PO 20 meq DAILY TIMA Administration Senna 2 tab 03/21/18 11:15 04/09/18 20:43 Senokot Tab* PO 2 tab BEDTIME PRN Administration CONSTIPATION Vital Signs: Vital Signs Temp Pulse Resp BP Pulse Ox 98.3 F 75 18 119/73 100 04/30/18 16:00 04/30/18 16:00 04/30/18 16:00 04/30/18 16:00 04/30/18 16:00 Lab Results: Laboratory Results - last 24 hr 04/30/18 04/30/18 05:10 05:10 WBC 7.8 RBC 3.89 L Hgb 13.5 Hct 39 MCV 99 H MCH 35 H MCHC 35 RDW 13 Plt Count 372 MPV 7.8 Neut % (Auto) 51.8 Lymph % (Auto) 31.5 Jerome % (Auto) 13.0 H Eos % (Auto) 3.4 Baso % (Auto) 0.3 Absolute Neuts (auto) 4.1 Absolute Lymphs (auto) 2.5 Absolute Monos (auto) 1.0 H Absolute Eos (auto) 0.3 Absolute Basos (auto) 0 Absolute Nucleated RBC 0 Nucleated RBC % 0.1 Sodium 140 Potassium 4.1 Chloride 105 Carbon Dioxide 28 Anion Gap 7 BUN 12 Creatinine 0.66 Est GFR ( Amer) 109.4 Est GFR (Non-Af Amer) 90.5 BUN/Creatinine Ratio 18.2 Glucose 100 Calcium 10.0 Total Bilirubin 0.40 AST 23 ALT 29 Alkaline Phosphatase 62 Total Protein 6.6 Albumin 3.9 Globulin 2.7 Albumin/Globulin Ratio 1.4 Exam: LUNGS: clear to auscultation bilaterally. HEART: regular rate and rhythm ABDOMEN: + bowel sounds, soft, non-tender, non-distended EXTREMITIES: no edema. lacks full extension in the left elbow NEUROLOGIC: Left CN VII palsy. 5/5 motor in her right upper and lower extremity with normal sensation. Left UE 2/5 shoulder adduction. LLE motor showed 3/5 knee ext and hip extension, trace ankle PF. Sensation impaired on left side. Assessment/Plan: 1. Intracranial hemorrhage. Will need repeat MRI of her brain after she leaves , then follow up with Neurology. 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 2. F/E/N: Mechanical soft diet and thin liquids per speech.. On MgOx 400mg BID and KCL 20mEq daily. 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 ROM and stretching daily. 4. Hypertension. Continue with Norvasc. 5. Advanced Directives: She is a full code. Her son, Jt, is her surrogate decision maker. 6. DVT Prophylaxis: TEDs. Blood thinners contraindicated due to ICH 7. Estimated LOS: estimate d/c around 05/13/18. 04/30/18 21:13
[2018-05-01] MEDS: Heparin VIAL(*) 5000 UNITS/ML VIAL (FIVE THOUSAND) SUBCUT SCH ×3 (04:56→21:12)
[2018-05-01] MEDS: [UNRECOGNIZED DRUG - OTHER] PO SCH ×2 (08:26→21:13)
[2018-05-01] MEDS: Potassium Chlor TAB* 20 MEQ TAB.ER PO SCH (08:26)
[2018-05-01] MEDS: Magnesium Oxide TAB* 400 MG PO SCH ×2 (08:26→21:13)
[2018-05-01] MEDS: amLODIPine TAB* 5 MG PO SCH (08:26)
[2018-05-01] MEDS: [UNRECOGNIZED DRUG - OTHER] PO SCH (08:27)
[2018-05-01] MEDS: [UNRECOGNIZED DRUG - OTHER] PO SCH (08:29)
[2018-05-01] MEDS: Polyethylene Glycol 3350* 17 GM PACKET PO SCH (08:30)
[2018-05-01] MEDS: Docusate CAP* 100 MG PO SCH ×2 (08:30→21:13)
--- NOTE | 2018-05-01 19:49 | PN ---
Progress Note Date of Service: 05/01/18 Note: VERÓNICA DEGROOT was visited. Therapy notes read and reviewed. Continues to get stronger as she mobilizes better. No complaints. Current Medications: Active Medications Generic Name Dose Route Start Last Admin Trade Name Freq PRN Reason Stop Dose Admin Acetaminophen 650 mg 03/21/18 11:15 04/30/18 20:43 Tylenol Tab* PO 650 mg Q4H PRN Administration FEVER > 101 Al Hydrox/Mg Hydrox/Simethicone 30 ml 03/21/18 11:15 Maalox Plus* PO Q6H PRN INDIGESTION Amlodipine Besylate 5 mg 03/22/18 09:00 05/01/18 08:26 Norvasc Tab* PO 5 mg DAILY TIMA Administration Bisacodyl 10 mg 03/21/18 11:49 Dulcolax Supp* [place] DAILY PRN CONSTIPATION Calcium Carbonate 1,250 mg 03/21/18 11:52 04/01/18 09:13 Calcium Carbonate Tab* PO 1,250 mg BID PRN Administration indigestion Docusate Sodium 200 mg 03/21/18 21:00 05/01/18 08:30 Colace Cap* PO Not Given BID TIMA Heparin Sodium (Porcine) 5,000 units 03/21/18 14:00 05/01/18 14:22 Heparin Vial(*) SUBCUT 5,000 units Q8HR TIMA Administration Magnesium Oxide 400 mg 04/02/18 21:00 05/01/18 08:26 Magox 400 Tab* PO 400 mg BID TIMA Administration Pto:(Coromega [place]- 1 packet 03/22/18 09:00 05/01/18 08:29 3 1 Packet) PO Not Given QAM TIMA (Echinacea Goldseal 1 cap 03/27/18 09:00 05/01/18 08:26 1 Cap) PO 1 cap BID TIMA Administration Pto: (Advanced 2 cap 03/27/18 09:00 05/01/18 08:27 Acidophilus Cap) PO 2 cap DAILY TIMA Administration Polyethylene Glycol/Electrolytes 17 gm 03/22/18 09:00 05/01/18 08:30 Miralax* PO Not Given DAILY TIMA Potassium Chloride 20 meq 03/27/18 09:00 05/01/18 08:26 Klor Con Er Tab* PO 20 meq DAILY TIMA Administration Senna 2 tab 03/21/18 11:15 04/09/18 20:43 Senokot Tab* PO 2 tab BEDTIME PRN Administration CONSTIPATION Vital Signs: Vital Signs Temp Pulse Resp BP Pulse Ox 98.1 F 82 20 124/71 100 05/01/18 16:00 05/01/18 16:00 05/01/18 18:00 05/01/18 16:00 05/01/18 18:00 Exam: LUNGS: clear to auscultation bilaterally. HEART: regular rate and rhythm ABDOMEN: + bowel sounds, soft, non-tender, non-distended EXTREMITIES: no edema. lacks full extension in the left elbow NEUROLOGIC: Left CN VII palsy. 5/5 motor in her right upper and lower extremity with normal sensation. Left UE 2/5 shoulder adduction. LLE motor showed 3/5 knee ext and hip extension, trace ankle PF. Sensation impaired on left side. Assessment/Plan: 1. Intracranial hemorrhage. Will need repeat MRI of her brain after she leaves , then follow up with Neurology. PT/OT/BUNDLE TIER. 2. F/E/N: Regular diet and thin liquids per speech.. On MgOx 400mg BID and KCL 20mEq daily. 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 ROM and stretching daily. 4. Hypertension. Continue with Norvasc. 5. Advanced Directives: She is a full code. Her son, Jt, is her surrogate decision maker. 6. DVT Prophylaxis: TEDs. Blood thinners contraindicated due to ICH 7. Estimated LOS: estimate d/c around 05/13/18. 05/01/18 19:51
[2018-05-02] MEDS: Heparin VIAL(*) 5000 UNITS/ML VIAL (FIVE THOUSAND) SUBCUT SCH ×3 (05:45→20:47)
[2018-05-02] MEDS: [UNRECOGNIZED DRUG - OTHER] PO SCH (08:39)
[2018-05-02] MEDS: Docusate CAP* 100 MG PO SCH ×2 (08:39→20:41)
[2018-05-02] MEDS: [UNRECOGNIZED DRUG - OTHER] PO SCH (08:40)
[2018-05-02] MEDS: amLODIPine TAB* 5 MG PO SCH (08:41)
[2018-05-02] MEDS: Magnesium Oxide TAB* 400 MG PO SCH ×2 (08:43→20:47)
[2018-05-02] MEDS: Polyethylene Glycol 3350* 17 GM PACKET PO SCH (08:44)
[2018-05-02] MEDS: [UNRECOGNIZED DRUG - OTHER] PO SCH ×2 (08:44→20:48)
[2018-05-02] MEDS: Potassium Chlor TAB* 20 MEQ TAB.ER PO SCH (08:44)
[2018-05-02] MEDS ORDERED: Hydrocortisone 1% CREAM* 30 GM TUBE TOPICAL PRN (10:44)
--- NOTE | 2018-05-02 10:48 | PN ---
Progress Note Date of Service: 05/02/18 Note: VERÓNICA DEGROOT was visited. Nursing and therapy notes read and reviewed. She has a rash on her abdomen and back that sometimes itches at night. Current Medications: Active Medications Generic Name Dose Route Start Last Admin Trade Name Freq PRN Reason Stop Dose Admin Acetaminophen 650 mg 03/21/18 11:15 04/30/18 20:43 Tylenol Tab* PO 650 mg Q4H PRN Administration FEVER > 101 Al Hydrox/Mg Hydrox/Simethicone 30 ml 03/21/18 11:15 Maalox Plus* PO Q6H PRN INDIGESTION Amlodipine Besylate 5 mg 03/22/18 09:00 05/02/18 08:41 Norvasc Tab* PO 5 mg DAILY TIMA Administration Bisacodyl 10 mg 03/21/18 11:49 Dulcolax Supp* [place] DAILY PRN CONSTIPATION Calcium Carbonate 1,250 mg 03/21/18 11:52 04/01/18 09:13 Calcium Carbonate Tab* PO 1,250 mg BID PRN Administration indigestion Docusate Sodium 200 mg 03/21/18 21:00 05/02/18 08:39 Colace Cap* PO Not Given BID TIMA Heparin Sodium (Porcine) 5,000 units 03/21/18 14:00 05/02/18 05:45 Heparin Vial(*) SUBCUT 5,000 units Q8HR TIMA Administration Hydrocortisone 1 applic 05/02/18 10:44 Hytone Cream 1%* TOPICAL TID PRN itching Magnesium Oxide 400 mg 04/02/18 21:00 05/02/18 08:43 Magox 400 Tab* PO 400 mg BID TIMA Administration Pto:(Coromega [place]- 1 packet 03/22/18 09:00 05/02/18 08:39 3 1 Packet) PO Not Given QAM TIMA (Echinacea Goldseal 1 cap 03/27/18 09:00 05/02/18 08:44 1 Cap) PO 1 cap BID TIMA Administration Pto: (Advanced 2 cap 03/27/18 09:00 05/02/18 08:40 Acidophilus Cap) PO 2 cap DAILY TIMA Administration Polyethylene Glycol/Electrolytes 17 gm 03/22/18 09:00 05/02/18 08:44 Miralax* PO Not Given DAILY TIMA Potassium Chloride 20 meq 03/27/18 09:00 05/02/18 08:44 Klor Con Er Tab* PO 20 meq DAILY TIMA Administration Senna 2 tab 03/21/18 11:15 04/09/18 20:43 Senokot Tab* PO 2 tab BEDTIME PRN Administration CONSTIPATION Vital Signs: Vital Signs Temp Pulse Resp BP Pulse Ox 97.9 F 77 18 116/86 98 05/02/18 05:48 05/02/18 05:48 05/02/18 05:48 05/02/18 05:48 05/02/18 05:48 Exam: GEN: no acute distress. alert and appropriate. LUNGS: clear to auscultation bilaterally. HEART: regular rate and rhythm ABDOMEN: + bowel sounds, soft, non-tender, non-distended EXTREMITIES: no edema. lacks full extension in the left elbow NEUROLOGIC: Left CN VII palsy. 5/5 motor in her right upper and lower extremity with normal sensation. Left UE 2/5 shoulder adduction, biceps. Left triceps 1/ 5. LLE motor showed 3/5 knee ext and hip flexion and hip extension, trace ankle PF. Sensation impaired on left side. Assessment/Plan: 1. Intracranial hemorrhage. Will need repeat MRI of her brain after she leaves , then follow up with Neurology. PT/OT. 2. F/E/N: Regular diet and thin liquids per speech.. On MgOx 400mg BID and KCL 20mEq daily. 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 ROM and stretching daily. 4. Hypertension. Continue with Norvasc. 5. Advanced Directives: She is a full code. Her son, Jt, is her surrogate decision maker. 6. DVT Prophylaxis: TEDs. Blood thinners contraindicated due to ICH 7. Estimated LOS: estimate d/c around 05/13/18. 05/02/18 10:50
[2018-05-02] MEDS: Acetaminophen TAB* 325 MG PO PRN (23:22)
[2018-05-03] MEDS: Heparin VIAL(*) 5000 UNITS/ML VIAL (FIVE THOUSAND) SUBCUT SCH ×3 (06:20→21:32)
[2018-05-03] MEDS: amLODIPine TAB* 5 MG PO SCH (08:05)
[2018-05-03] MEDS: Magnesium Oxide TAB* 400 MG PO SCH ×2 (08:05→21:31)
[2018-05-03] MEDS: Potassium Chlor TAB* 20 MEQ TAB.ER PO SCH (08:05)
[2018-05-03] MEDS: [UNRECOGNIZED DRUG - OTHER] PO SCH (08:06)
[2018-05-03] MEDS: [UNRECOGNIZED DRUG - OTHER] PO SCH ×2 (08:06→21:32)
[2018-05-03] MEDS: Docusate CAP* 100 MG PO SCH ×2 (08:07→21:27)
[2018-05-03] MEDS: [UNRECOGNIZED DRUG - OTHER] PO SCH (08:07)
[2018-05-03] MEDS: Polyethylene Glycol 3350* 17 GM PACKET PO SCH (08:07)
--- NOTE | 2018-05-03 11:04 | PN ---
Progress Note Date of Service: 05/03/18 Note: VERÓNICA DEGROOT was visited. Nursing and therapy notes read and reviewed. No new concerns overnight. No chest pain, shortness of breath or abdominal pain. Current Medications: Active Medications Generic Name Dose Route Start Last Admin Trade Name Freq PRN Reason Stop Dose Admin Acetaminophen 650 mg 03/21/18 11:15 05/02/18 23:22 Tylenol Tab* PO 650 mg Q4H PRN Administration FEVER > 101 Al Hydrox/Mg Hydrox/Simethicone 30 ml 03/21/18 11:15 Maalox Plus* PO Q6H PRN INDIGESTION Amlodipine Besylate 5 mg 03/22/18 09:00 05/03/18 08:05 Norvasc Tab* PO 5 mg DAILY TIMA Administration Bisacodyl 10 mg 03/21/18 11:49 Dulcolax Supp* [place] DAILY PRN CONSTIPATION Calcium Carbonate 1,250 mg 03/21/18 11:52 04/01/18 09:13 Calcium Carbonate Tab* PO 1,250 mg BID PRN Administration indigestion Docusate Sodium 200 mg 03/21/18 21:00 05/03/18 08:07 Colace Cap* PO Not Given BID TIMA Heparin Sodium (Porcine) 5,000 units 03/21/18 14:00 05/03/18 06:20 Heparin Vial(*) SUBCUT 5,000 units Q8HR TIMA Administration Hydrocortisone 1 applic 05/02/18 10:44 05/02/18 19:18 Hytone Cream 1%* TOPICAL 1 applic TID PRN Administration itching Magnesium Oxide 400 mg 04/02/18 21:00 05/03/18 08:05 Magox 400 Tab* PO 400 mg BID TIMA Administration Pto:(Coromega [place]- 1 packet 03/22/18 09:00 05/03/18 08:07 3 1 Packet) PO Not Given QAM TIMA (Echinacea Goldseal 1 cap 03/27/18 09:00 05/03/18 08:06 1 Cap) PO 1 cap BID TIMA Administration Pto: (Advanced 2 cap 03/27/18 09:00 05/03/18 08:06 Acidophilus Cap) PO 2 cap DAILY TIMA Administration Polyethylene Glycol/Electrolytes 17 gm 03/22/18 09:00 05/03/18 08:07 Miralax* PO Not Given DAILY TIMA Potassium Chloride 20 meq 03/27/18 09:00 05/03/18 08:05 Klor Con Er Tab* PO 20 meq DAILY TIMA Administration Senna 2 tab 03/21/18 11:15 04/09/18 20:43 Senokot Tab* PO 2 tab BEDTIME PRN Administration CONSTIPATION Vital Signs: Vital Signs Temp Pulse Resp BP Pulse Ox 97.5 F 67 18 98/70 95 05/03/18 06:21 05/03/18 06:21 05/03/18 06:21 05/03/18 06:21 05/03/18 06:21 Lab Results: Laboratory Results - last 24 hr 05/03/18 06:12 Magnesium 1.7 L Exam: GEN: no acute distress. alert and appropriate. LUNGS: clear to auscultation bilaterally. HEART: regular rate and rhythm ABDOMEN: + bowel sounds, soft, non-tender, non-distended EXTREMITIES: no edema. lacks full extension in the left elbow NEUROLOGIC: Left CN VII palsy. 5/5 motor in her right upper and lower extremity with normal sensation. Left UE 2/5 shoulder adduction, biceps. Left triceps 1/ 5. LLE motor showed 3/5 knee ext and hip flexion and hip extension, trace ankle PF. Sensation impaired on left side. Assessment/Plan: 1. Intracranial hemorrhage. Will need repeat MRI of her brain after she leaves , then follow up with Neurology. PT/OT. 2. F/E/N: Regular diet and thin liquids per speech.. On MgOx 400mg BID and KCL 20mEq daily. 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 ROM and stretching daily. 4. Hypertension. Continue with Norvasc. 5. Advanced Directives: She is a full code. Her son, Jt, is her surrogate decision maker. 6. DVT Prophylaxis: TEDs. Blood thinners contraindicated due to ICH 7. Estimated LOS: estimate d/c around 05/13/18. 05/03/18 11:03
[2018-05-04] MEDS: Heparin VIAL(*) 5000 UNITS/ML VIAL (FIVE THOUSAND) SUBCUT SCH ×3 (05:46→21:33)
[2018-05-04] MEDS: Potassium Chlor TAB* 20 MEQ TAB.ER PO SCH (08:06)
[2018-05-04] MEDS: amLODIPine TAB* 5 MG PO SCH (08:06)
[2018-05-04] MEDS: [UNRECOGNIZED DRUG - OTHER] PO SCH (08:07)
[2018-05-04] MEDS: Magnesium Oxide TAB* 400 MG PO SCH ×2 (08:07→21:32)
[2018-05-04] MEDS: Polyethylene Glycol 3350* 17 GM PACKET PO SCH (08:08)
[2018-05-04] MEDS: [UNRECOGNIZED DRUG - OTHER] PO SCH (08:08)
[2018-05-04] MEDS: Docusate CAP* 100 MG PO SCH ×2 (08:08→21:33)
[2018-05-04] MEDS: [UNRECOGNIZED DRUG - OTHER] PO SCH ×2 (08:08→21:33)
--- NOTE | 2018-05-04 10:07 | PN ---
Progress Note Date of Service: 05/04/18 Note: VERÓNICA DEGROOT was visited. Nursing notes read and reviewed. No chest pain, shortness of breath or abdominal pain. Current Medications: Active Medications Generic Name Dose Route Start Last Admin Trade Name Freq PRN Reason Stop Dose Admin Acetaminophen 650 mg 03/21/18 11:15 05/02/18 23:22 Tylenol Tab* PO 650 mg Q4H PRN Administration FEVER > 101 Al Hydrox/Mg Hydrox/Simethicone 30 ml 03/21/18 11:15 Maalox Plus* PO Q6H PRN INDIGESTION Amlodipine Besylate 5 mg 03/22/18 09:00 05/04/18 08:06 Norvasc Tab* PO 5 mg DAILY TIMA Administration Bisacodyl 10 mg 03/21/18 11:49 Dulcolax Supp* [place] DAILY PRN CONSTIPATION Calcium Carbonate 1,250 mg 03/21/18 11:52 04/01/18 09:13 Calcium Carbonate Tab* PO 1,250 mg BID PRN Administration indigestion Docusate Sodium 200 mg 03/21/18 21:00 05/04/18 08:08 Colace Cap* PO Not Given BID TIMA Heparin Sodium (Porcine) 5,000 units 03/21/18 14:00 05/04/18 05:46 Heparin Vial(*) SUBCUT 5,000 units Q8HR TIMA Administration Hydrocortisone 1 applic 05/02/18 10:44 05/02/18 19:18 Hytone Cream 1%* TOPICAL 1 applic TID PRN Administration itching Magnesium Oxide 400 mg 04/02/18 21:00 05/04/18 08:07 Magox 400 Tab* PO 400 mg BID TIMA Administration Pto:(Coromega [place]- 1 packet 03/22/18 09:00 05/04/18 08:08 3 1 Packet) PO Not Given QAM TIMA (Echinacea Goldseal 1 cap 03/27/18 09:00 05/04/18 08:08 1 Cap) PO 1 cap BID TIMA Administration Pto: (Advanced 2 cap 03/27/18 09:00 05/04/18 08:07 Acidophilus Cap) PO 2 cap DAILY TIMA Administration Polyethylene Glycol/Electrolytes 17 gm 03/22/18 09:00 05/04/18 08:08 Miralax* PO Not Given DAILY TIMA Potassium Chloride 20 meq 03/27/18 09:00 05/04/18 08:06 Klor Con Er Tab* PO 20 meq DAILY TIMA Administration Senna 2 tab 03/21/18 11:15 04/09/18 20:43 Senokot Tab* PO 2 tab BEDTIME PRN Administration CONSTIPATION Vital Signs: Vital Signs Temp Pulse Resp BP Pulse Ox 98.3 F 84 20 131/74 100 05/04/18 06:49 05/04/18 06:49 05/04/18 06:49 05/04/18 06:49 05/04/18 06:49 Exam: GEN: no acute distress. alert and appropriate. LUNGS: clear to auscultation bilaterally. HEART: regular rate and rhythm ABDOMEN: + bowel sounds, soft, non-tender, non-distended EXTREMITIES: no edema. lacks full extension in the left elbow. Tone in left biceps and triceps is less today. Cassius grade II in left wrist and finger flexors with some discomfort. NEUROLOGIC: Left CN VII palsy. 5/5 motor in her right upper and lower extremity with normal sensation. Left UE 2/5 shoulder adduction, biceps. Left triceps 1/ 5. LLE motor showed 3/5 knee ext and hip flexion and hip extension, trace ankle PF. Sensation impaired on left side. Assessment/Plan: 1. Intracranial hemorrhage. Will need repeat MRI of her brain after she leaves , then follow up with Neurology. PT/OT. 2. F/E/N: Regular diet and thin liquids per speech.. On MgOx 400mg BID and KCL 20mEq daily. 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 ROM and stretching daily. 4. Hypertension. Continue with Norvasc. 5. Advanced Directives: She is a full code. Her son, Jt, is her surrogate decision maker. 6. DVT Prophylaxis: TEDs. Blood thinners contraindicated due to ICH 7. Estimated LOS: estimate d/c around 05/13/18. 05/04/18 10:07
[2018-05-05] MEDS: Heparin VIAL(*) 5000 UNITS/ML VIAL (FIVE THOUSAND) SUBCUT SCH ×3 (06:36→21:40)
[2018-05-05] MEDS: [UNRECOGNIZED DRUG - OTHER] PO SCH ×2 (09:07→21:31)
[2018-05-05] MEDS: [UNRECOGNIZED DRUG - OTHER] PO SCH (09:07)
[2018-05-05] MEDS: [UNRECOGNIZED DRUG - OTHER] PO SCH (09:09)
[2018-05-05] MEDS: Magnesium Oxide TAB* 400 MG PO SCH ×2 (09:09→21:31)
[2018-05-05] MEDS: Potassium Chlor TAB* 20 MEQ TAB.ER PO SCH (09:09)
[2018-05-05] MEDS: amLODIPine TAB* 5 MG PO SCH (09:09)
[2018-05-05] MEDS: Docusate CAP* 100 MG PO SCH ×2 (09:15→21:29)
[2018-05-05] MEDS: Polyethylene Glycol 3350* 17 GM PACKET PO SCH (09:15)
--- NOTE | 2018-05-05 16:37 | PN ---
Progress Note Date of Service: 05/05/18 Note: VERÓNICA DEGROOT was visited. Therapy notes read and reviewed. Agnes is continuing to get steadier. Will hopefully be ready for discharge next Saturday Current Medications: Active Medications Generic Name Dose Route Start Last Admin Trade Name Freq PRN Reason Stop Dose Admin Acetaminophen 650 mg 03/21/18 11:15 05/02/18 23:22 Tylenol Tab* PO 650 mg Q4H PRN Administration FEVER > 101 Al Hydrox/Mg Hydrox/Simethicone 30 ml 03/21/18 11:15 Maalox Plus* PO Q6H PRN INDIGESTION Amlodipine Besylate 5 mg 03/22/18 09:00 05/05/18 09:09 Norvasc Tab* PO 5 mg DAILY TIMA Administration Bisacodyl 10 mg 03/21/18 11:49 Dulcolax Supp* [place] DAILY PRN CONSTIPATION Calcium Carbonate 1,250 mg 03/21/18 11:52 04/01/18 09:13 Calcium Carbonate Tab* PO 1,250 mg BID PRN Administration indigestion Docusate Sodium 200 mg 03/21/18 21:00 05/05/18 09:15 Colace Cap* PO Not Given BID TIMA Heparin Sodium (Porcine) 5,000 units 03/21/18 14:00 05/05/18 14:51 Heparin Vial(*) SUBCUT 5,000 units Q8HR TIMA Administration Hydrocortisone 1 applic 05/02/18 10:44 05/02/18 19:18 Hytone Cream 1%* TOPICAL 1 applic TID PRN Administration itching Magnesium Oxide 400 mg 04/02/18 21:00 05/05/18 09:09 Magox 400 Tab* PO 400 mg BID TIMA Administration Pto:(Coromega [place]- 1 packet 03/22/18 09:00 05/05/18 09:07 3 1 Packet) PO Not Given QAM TIMA (Echinacea Goldseal 1 cap 03/27/18 09:00 05/05/18 09:07 1 Cap) PO Not Given BID TIMA Pto: (Advanced 2 cap 03/27/18 09:00 05/05/18 09:09 Acidophilus Cap) PO 2 cap DAILY TIMA Administration Polyethylene Glycol/Electrolytes 17 gm 03/22/18 09:00 05/05/18 09:15 Miralax* PO Not Given DAILY TIMA Potassium Chloride 20 meq 03/27/18 09:00 05/05/18 09:09 Klor Con Er Tab* PO 20 meq DAILY TIMA Administration Senna 2 tab 03/21/18 11:15 04/09/18 20:43 Senokot Tab* PO 2 tab BEDTIME PRN Administration CONSTIPATION Vital Signs: Vital Signs Temp Pulse Resp BP Pulse Ox 98.9 F 87 20 106/85 99 05/05/18 16:18 05/05/18 16:18 05/05/18 16:18 05/05/18 06:48 05/05/18 16:18 Exam: GEN: no acute distress. alert and appropriate. LUNGS: clear to auscultation bilaterally. HEART: regular rate and rhythm ABDOMEN: + bowel sounds, soft, non-tender, non-distended EXTREMITIES: no edema. lacks full extension in the left elbow. NEUROLOGIC: Left CN VII palsy. 5/5 motor in her right upper and lower extremity with normal sensation. Left UE 2/5 shoulder adduction, biceps. Left triceps 1/ 5. LLE motor showed 3/5 knee ext and hip flexion and hip extension, trace ankle PF. Sensation impaired on left side. Assessment/Plan: 1. Intracranial hemorrhage. Will need repeat MRI of her brain after she leaves , then follow up with Neurology. PT/OT. 2. F/E/N: Regular diet and thin liquids per speech.. On MgOx 400mg BID and KCL 20mEq daily. 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 ROM and stretching daily. 4. Hypertension. Continue with Norvasc. 5. Advanced Directives: She is a full code. Her son, Jt, is her surrogate decision maker. 6. DVT Prophylaxis: TEDs. Blood thinners contraindicated due to ICH 7. Estimated LOS: estimate d/c around 05/13/18. 05/05/18 16:38
[2018-05-05] MEDS: Acetaminophen TAB* 325 MG PO PRN (21:32)
[2018-05-06] MEDS: Heparin VIAL(*) 5000 UNITS/ML VIAL (FIVE THOUSAND) SUBCUT SCH ×3 (06:23→23:40)
[2018-05-06] MEDS: Potassium Chlor TAB* 20 MEQ TAB.ER PO SCH (08:48)
[2018-05-06] MEDS: [UNRECOGNIZED DRUG - OTHER] PO SCH (08:48)
[2018-05-06] MEDS: Magnesium Oxide TAB* 400 MG PO SCH ×2 (08:52→21:03)
[2018-05-06] MEDS: [UNRECOGNIZED DRUG - OTHER] PO SCH (08:53)
[2018-05-06] MEDS: Polyethylene Glycol 3350* 17 GM PACKET PO SCH (08:53)
[2018-05-06] MEDS: [UNRECOGNIZED DRUG - OTHER] PO SCH ×2 (08:53→21:03)
[2018-05-06] MEDS: Docusate CAP* 100 MG PO SCH ×2 (08:53→21:03)
--- NOTE | 2018-05-06 12:49 | PMRUTEAM ---
PMRU: Team Meeting Current Status: Nursing: Current Status Skin Deviations [Back] Rash Skin Deviations [Left Elbow] Other Skin Deviations [Abdomen] Rash Skin Deviations [Coccyx] Other Skin Deviations [Right Groin] Previous Access Point Skin Deviation Description [ No issues Back] Skin Deviation Description [ no deviation noted Left Elbow] Skin Deviation Description [ No rash Abdomen] Skin Deviation Description [ slightly reddened Coccyx] Skin Deviation Description [ healed Right Groin] Bladder Current Status voiding Bowel Current Status daily bowel mov'ts Nutrition Current Status appetite good Medication Current Status Pt w good understanding of medications, reinforcement Physical Therapy: Current Status Bed Mobility Assistance Not Tested Transfer Moblility Assistance Supervision,Contact Guard Assist Transfer/Bed Mobility Manoj Walker Recommended Devices Ambulation Assistance Contact Guard Assist Ambulation Assistive Devices Manoj Walker Number of Feet Patient 40' Ambulated Stairs Assistance Mod Assist Stairs Recommended Devices One Rail Number of Stairs 5 steps cg to min A x 1 up and min to mod A x 1 down Manual Wheelchair Control/ Bilateral LE's Technique Wheelchair Propulsion Ability Standby Assistance Wheelchair Distance (ft) 150 Objective Comments worked on w/c mobility with BLE this session. initially patient has great difficulty with movement, but demosntrates improving ability as distance increases and is better able to assist with LLE. patient demonstrates improving knee flexion and hip flexion to clear LLE by end of session. will continue to wokr on this skill as benefits are translatable to ambulation and gnmeral mobility. Occupational Therapy: Current Status Upper Body Dressing Min Assist Lower Body Dressing Min Assist Lower Body Dressing Progress mod - min. More I when doing in bed Bathing Min Assist Bathing Progress in shower w/c Toileting Supervision,Contact Guard Assist Toileting Progress manoj walker Toilet Transfer Supervision,Contact Guard Assist Toilet Transfer Progress manoj walker Shower Transfer Contact Guard Assist Shower Transfer Progress not attempted showers in w/c Eating Independent Eating Progress set up Rec Therapy: Current Status Summary of Assessment and RT assessment complete and pt. is aware of Clinical Impression services. Pt. has been actively engaged in leisure activities independently and sessions with this insurance underwriter while on the unit. Treatment Goals Patient will engage in recreation and leisure activities while on the unit. Treatment Plan Provide and encourage involvement in RT services. Social Work: Current Status Discharge Plan return home with home care svs and family support Potential for Family Training pt's son is involved and supportive Anticipated Discharge Home Destination Discharge With home care svs and family support Nutrition: Current Status Monitoring Continues to eat nearly 100% of most meals. BMs , 05/06. Mag 1.7; Magox BID continues. Regular textures tolerated and remain appropriate. Appears to be meeting most goals as outlined below ; could consider increasing Magox to TID, as serum mag remaining slightly below normal range. Speech: Current Status Assessment On the Donn Cognitive Assessment (MOCA) Emily. 7 .2, patient scored 27/30, where 26 or greater is within normal limits. This result indicates the patient's cognitive-communication status is within functional limits. Patient has met all cognitive-communication goals. Recommend discharge skilled speech therapy interventions. Speech Current Status Goal 1 Within Functional linits Speech Goal 2 Current Status Mild impairment Speech Goal 3 Current Status Mild impairment Goals: Physical Therapy: Initial Goals Bed Mobility Assistance Independent Transfer Mobility Assistance Independent Transfer/Bed Mobility Manoj Walker Recommended Devices Ambulation Independent Ambulation Recommended Devices Manoj Walker Ambulation Distance 50 Wheelchair Propulsion Ability Independent Stairs Assistance Independent Stair Recommended Devices One Rail Number of Stairs 5 Physical Therapy: Updated Goals Transfer/Bed Mobility Lisa Lift Recommended Devices Occupational Therapy: Initial Goals Goals to be Completed in (Days 4-6 weeks ) Upper Body Bathing Routine Modified Independent with Lower Body Bathing Routine Modified Independent with Upper Body Dressing Routine Modified Independent with Lower Body Dressing Routine Modified Independent with Toilet Hygeine and Clothing Modified Independent with Management Routine Toilet Transfer Routine Modified Independent with Tub Transfer Routine Supervision/Set Up Functional Transfers for ADL Modified Independent with Grooming Routine Modified Independent with Feeding Routine Modified Independent with Nursing: Goals Bladder Goal indep Bowel Goal indep Nutrition Goal indep Medication Goal indep Nutrition: Goals Intervention Goals 1. Pt will tolerate least-restrictive diet texture without s/sx difficulty chewing 2. Intake will remain >75% of meals 3. Intake will be adequate to maintain stable wt, hydration, and lean body mass 4. Serum magnesium will return to normal range w/ daily supplementation and diet education Speech: Goals Speech Goal 1 Comprehension Speech Evaluation Status Goal Mild-moderate impairment 1 Speech Current Status Goal 1 Within Functional linits Goal 1 Comments Long-Term Goal: Pt will use compensatory strategies to demonstrate comprehension of paragraph length verbal and written information of moderate complexity, 100% accuracy, given minimal extra time, Independently. Status: Met. Short-Term Goal: Pt will use compensatory strategies to attend to information in the Left visual field and demonstrate comprehension of paragraph length verbal and written information of moderate complexity, 95% accuracy, given moderate extra time, Independently. Status: Met. ASSISTANT CROSS COUNTRY COACH directed patient to summarize her independent reading in the novel we had previously practiced left-sode scanning techniques. Patient summarized accurately using specific names, laces and events. Patient read and summarized 3 paragraphs accurately, with no neglect of left edge of lines or words, and accurate descripion of actions. Speech Goal 2 Problem Solving Speech Goal 2 Evaluation Moderate impairment Status Speech Goal 2 Current Status Mild impairment Speech Goal 2 Comments Long-Term Goal: Patient will use compensatory strategies to solve moderately complex routine problems, with 100% accuracy, Independently, for ADLs such as shopping, time and money management. Status: Met. Short-Term Goal: Patient will use compensatory strategies to attend to information in the Left visual field to solve moderately complex problems, with 90% accuracy, given Minimal skilled instruction and cueing. Status: Met. ASSISTANT CROSS COUNTRY COACH conducted further skilled cognitive- communication testing. On the Donn Cognitive Assessment (MOCA) Emily. 7 .2, patient scored 27/30, where 26 or greater is within normal limits. Subscores for task domains: Visuospatial/Executive: 3/5 (-2: copying 3D rectangle, clock hands equal) Namin/3 Attention: 6/6 Language: 5/6 (-1: changed 1 of 21 words in sentence repetition) Abstraction: 2/2 Delayed Recall: 5/5 Orientation: 6/6. This result indicates the patient's cognitive- communication status is within functional limits. Speech Goal 3 Motor speech Speech Goal 3 Evaluation Moderate impairment Status Speech Goal 3 Current Status Mild impairment Speech Goal 3 Comments Plant Production Manager Goal: Patient will demonstrate improvement in range and rate of motion of her Left side labial retractors, elevators and depressors, to 90% of Right side, to achieve functional ability to eat and drink without spillage, speak with minimal distortion, and make appropriate facial expressions. Status: Met Short Term Goal: Patient will demonstrate improvement in range and rate of motion of her Left side labial retractors, elevators and depressors, to 90% of Right side, achieve functional ability to eat and drink without spillage, speak with minimal distortion, and make appropriate facial expressions, given Minimal cueing. Status: Met Patient completed oral motor exercises and repeated multipsyllabic target wordswith 100% intelligibility. Patient demonstrated symmetrical face at rest, symmetrical spontaneous fsacial expression including smile and frown, and 95-100% symmetrical isolated movements including Left side lip retraction and depression. Mildly decreased medial-left upper lip elevation does not impair functional use for expression and eating. Social Work: Goals Discharge Plan return home with home care svs and family support Potential for Family Training pt's son is involved and supportive Anticipated Discharge Home Destination Discharge With home care svs and family support Care Plan: Care Plan ADL's - Improve/Maintain Start: 03/23/18 00:21 Freq: DAILY Status: Active Target: Protocol: Activity Type Activity Date Activity User E-Sign Co-Sign Detail Recorded Client Recorded Date Recorded By Document 05/02/18 14:22 [id number] [id number] 05/02/18 14:22 [id number] 05/02/18 14:22 PMRU Outcome: ADL's/ADL Transfers Orders/Interventions Occupational Therapy Evaluation & Treatment Communication Tool in Patient Room Patient to receive OT 5x/wk for 60-120 Therex min/day Self Care Management Group Therapy Neuromuscular ReEducation UE/LE ADL's with Assist Yes: mod I ADL Transfers with Assist Yes: mod I Toileting: Transfers,Clothing Management Yes: mod I ,Hygeine w/Assist Progression Toward Outcome/Goals Progressing Outcome/Goals Met Pt demonstrated improved ability to manage clothing after toileting when wearing a dress . ( only has to manage underwear) Pt demonstrating increased I in shower, requiring CGA when standing for nata area hygiene. Communication-Improve/Maintain Start: 03/23/18 00:21 Freq: DAILY Status: Active Target: Protocol: Activity Type Activity Date Activity User E-Sign Co-Sign Detail Recorded Client Recorded Date Recorded By Document 05/06/18 00:17 [id number] [id number] 05/06/18 00:17 [id number] 05/06/18 00:17 PMRU Outcome: Communication/Cognitive Status Outcome/Goals Makes Needs Known Effectively Progression Toward Outcomes/Goals Progressing Discharge Planning - Improve/Maintain Start: 03/23/18 00:21 Freq: DAILY Status: Active Target: Protocol: Activity Type Activity Date Activity User E-Sign Co-Sign Detail Recorded Client Recorded Date Recorded By Document 05/06/18 00:17 [id number] [id number] 05/06/18 00:17 [id number] 05/06/18 00:17 PMRU Outcome: Discharge Planning Update Patient Family No Outcome/Goals Demonstrates Understanding of Discharge Plan Progression Toward Outcome/Goals Progressing Education-Improve/Maintain Start: 03/23/18 00:21 Freq: QSHIFT Status: Active Target: Protocol: Activity Type Activity Date Activity User E-Sign Co-Sign Detail Recorded Client Recorded Date Recorded By Document 05/06/18 08:00 [id number] [id number] 05/06/18 09:37 [id number] 05/06/18 08:00 PMRU Outcome: Education Outcome/Goals Encourage Questions Progression Toward Outcome/Goals Progressing /GI-Improve/Maintain Start: 03/23/18 00:21 Freq: QSHIFT Status: Active Target: Protocol: Activity Type Activity Date Activity User E-Sign Co-Sign Detail Recorded Client Recorded Date Recorded By Document 05/06/18 08:00 [id number] [id number] 05/06/18 09:37 [id number] 05/06/18 08:00 PMRU Outcome: Genitourinary/ Gastrointestinal Genitourinary- Outcome/Goals Maintain/ Achieve Urinary Continence Gastrointestinal-Outcome/Goals Maintain/ Achieve Bowel Regularity in Accordance with Pt's Baseline Prevent Constipation Progression Toward Outcome/Goals - Progressing Progression Toward Outcome/Goals - GI Progressing Outcome/Goals Met Comment voiding in the Br Mobility- Improve/Maintain Start: 03/21/18 17:34 Freq: DAILY Status: Active Target: Protocol: Activity Type Activity Date Activity User E-Sign Co-Sign Detail Recorded Client Recorded Date Recorded By Document 03/26/18 16:51 [id number] [email or web address] 03/26/18 16:51 [id number] 03/26/18 16:51 PMRU Outcome: Mobility Physical Therapy Evaluation and Yes Treatment Activity OOB with Assistance Yes WBAT Yes Device Yes Assistance Yes Patient to be seen 5x/wk for 60-120 min/ Therex day for: Mobility Training Gait Training W/C Mobility Balance Outcome/Goals Maintain/ Achieve Baseline Mobility Status Improve Mobility Status Demonstrates Proper Use of Assistive Devices Free from Complications of Immobility Progression Toward Outcome/Goals Progressing Outcome/Goals Met Comment improved ability to extend LLE against gravity Bed Mobility Yes: independnet Transfers Yes: independent with manoj walker Gait x ft Yes: independent with hemiwalker 50' W/C Mobility x ft Yes: independent with RU/LE 300' Up/Down Stairs Yes: inddependent up /down 5 stairs. Neurological- Improve/Maintain Start: 03/23/18 00:21 Freq: QSHIFT Status: Active Target: Protocol: Activity Type Activity Date Activity User E-Sign Co-Sign Detail Recorded Client Recorded Date Recorded By Document 05/06/18 08:00 [id number] 05/06/18 09:37 [id number] 05/06/18 08:00 PMRU Outcome: Neurological Weakness/Aphasia Weakness Left Side Outcome/Goals Maintain/ Achieve Baseline Neurological Status Improve Neurological Status Maintain/ Improve Strength/ROM Progression Toward Outcome/Goals Progressing Pain/Comfort- Improve/Maintain Start: 03/23/18 00:21 Freq: QSHIFT Status: Complete Target: Protocol: Activity Type Activity Date Activity User E-Sign Co-Sign Detail Recorded Client Recorded Date Recorded By Document 04/25/18 10:07 [id number] 04/25/18 10:08 [id number] 04/25/18 10:07 PMRU Outcome: Pain/Comfort Outcome/Goals Demonstrates Knowledge and Use of Available Comfort Measures Achieves Acceptable Comfort/Pain Level as Determined by Patient/Condit Maintain Comfort Level Allowing Patient to Fully Participate in Rehab Progression Toward Outcome/Goals Progressing Outcome/Goals Met Comment no c/o pain verbalized Safety- Improve/Maintain Start: 03/23/18 00:21 Freq: QSHIFT Status: Active Target: Protocol: Activity Type Activity Date Activity User E-Sign Co-Sign Detail Recorded Client Recorded Date Recorded By Document 05/06/18 08:00 [id number] 05/06/18 09:37 [id number] 05/06/18 08:00 PMRU Outcome: Safety Outcome/Goals Remain Free of Injury or Harm Cooperates with Safety Measures for Least Restrictive Environment Prevent Falls/ Injury Progression Toward Outcome/Goals Progressing Skin- Improve/Maintain Start: 03/23/18 00:21 Freq: QSHIFT Status: Active Target: Protocol: Activity Type Activity Date Activity User E-Sign Co-Sign Detail Recorded Client Recorded Date Recorded By Document 05/06/18 08:00 [id number] 05/06/18 09:37 [id number] 05/06/18 08:00 PMRU Outcome: Skin Skin Risk Level Medium Skin Orders Air Mattress Multipodus Boot Outcome/Goals Maintain/ Improve Skin Intergrity Progression Toward Outcome/Goals Progressing Medicine Note: Length of Stay: 7 days Anticipated Discharge Destination: Home Tentative Discharge Date: 05/13/18 Discharged to: Home
[2018-05-06] MEDS: amLODIPine TAB* 5 MG PO SCH (13:47)
--- NOTE | 2018-05-06 17:57 | PN ---
Progress Note Date of Service: 05/06/18 Note: VERÓNICA DEGROOT was visited. Therapy notes read and reviewed. She was discussed in interdisciplinary team rounds. Her BP a little low. Will cut back her amlodipine to 2.5. She may need help getting her AFO on when she goes home Current Medications: Active Medications Generic Name Dose Route Start Last Admin Trade Name Freq PRN Reason Stop Dose Admin Acetaminophen 650 mg 03/21/18 11:15 05/05/18 21:32 Tylenol Tab* PO 325 mg Q4H PRN Administration FEVER > 101 Al Hydrox/Mg Hydrox/Simethicone 30 ml 03/21/18 11:15 Maalox Plus* PO Q6H PRN INDIGESTION Bisacodyl 10 mg 03/21/18 11:49 Dulcolax Supp* NM DAILY PRN CONSTIPATION Calcium Carbonate 1,250 mg 03/21/18 11:52 04/01/18 09:13 Calcium Carbonate Tab* PO 1,250 mg BID PRN Administration indigestion Docusate Sodium 200 mg 03/21/18 21:00 05/06/18 08:53 Colace Cap* PO Not Given BID TIMA Heparin Sodium (Porcine) 5,000 units 03/21/18 14:00 05/06/18 15:40 Heparin Vial(*) SUBCUT 5,000 units Q8HR TIMA Administration Hydrocortisone 1 applic 05/02/18 10:44 05/02/18 19:18 Hytone Cream 1%* TOPICAL 1 applic TID PRN Administration itching Magnesium Oxide 400 mg 04/02/18 21:00 05/06/18 08:52 Magox 400 Tab* PO 400 mg BID TIMA Administration Pto:(Coromega [place]- 1 packet 03/22/18 09:00 05/06/18 08:53 3 1 Packet) PO Not Given QAM TIMA (Echinacea Goldseal 1 cap 03/27/18 09:00 05/06/18 08:53 1 Cap) PO Not Given BID TIMA Pto: (Advanced 2 cap 03/27/18 09:00 05/06/18 08:48 Acidophilus Cap) PO 2 cap DAILY TIMA Administration Polyethylene Glycol/Electrolytes 17 gm 03/22/18 09:00 05/06/18 08:53 Miralax* PO Not Given DAILY TIMA Potassium Chloride 20 meq 03/27/18 09:00 05/06/18 08:48 Klor Con Er Tab* PO 20 meq DAILY TIMA Administration Senna 2 tab 03/21/18 11:15 04/09/18 20:43 Senokot Tab* PO 2 tab BEDTIME PRN Administration CONSTIPATION Vital Signs: Vital Signs Temp Pulse Resp BP Pulse Ox 97.8 F 90 16 121/85 99 05/06/18 16:35 05/06/18 16:35 05/06/18 16:35 05/06/18 16:35 05/06/18 16:35 Exam: GENERAL: no acute distress. alert and appropriate. LUNGS: clear to auscultation bilaterally. HEART: regular rate and rhythm ABDOMEN: + bowel sounds, soft, non-tender, non-distended EXTREMITIES: no edema. lacks full extension in the left elbow. NEUROLOGIC: Left CN VII palsy. 5/5 motor in her right upper and lower extremity with normal sensation. Left UE 2/5 shoulder adduction, biceps. Left triceps 1/ 5. LLE motor showed 3/5 knee ext and hip flexion and hip extension, trace ankle PF. Sensation impaired on left side. Assessment/Plan: 1. Intracranial hemorrhage. Will need repeat MRI of her brain after she leaves , then follow up with Neurology. PT/OT. 2. F/E/N: Regular diet and thin liquids per speech.. On MgOx 400mg BID and KCL 20mEq daily. 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 ROM and stretching daily. 4. Hypertension. Continue with Norvasc. 5. Advanced Directives: She is a full code. Her son, Jt, is her surrogate decision maker. 6. DVT Prophylaxis: TEDs. Blood thinners contraindicated due to ICH 7. Estimated LOS: estimate d/c around 05/13/18. 05/06/18 17:58
[2018-05-07 05:29] LABS: ABS Basophils 0 10^3/ul (0-0.2); ABS Eosinophils 0.4 10^3/ul (0-0.6); ABS Lymphocytes 2.3 10^3/ul (1.0-4.8); ABS Neutrophils 3.6 10^3/ul (1.5-7.7); ABS Nucleated RBC 0 10^3/ul; Hematocrit 39 % (35-47); Hemoglobin 13.6 g/dl (12.0-16.0); Lymphocyte % 31.1 % (25-47); Mean Corpuscular HGB Conc 35 g/dl (31-36); Mean Corpuscular Hemoglobin 34 pg (27-31); Mean Corpuscular Volume 98 fL (80-97); Mean Platelet Volume 8.3 um3 (7.4-10.4); Nucleated Red Blood Cells % 0.1; Platelet Count 331 10^3/ul (150-450); Red Blood Count 3.97 10^6/ul (4.00-5.40); Red Cell Distribution Width 12 % (10.5-15); White Blood Count 7.4 10^3/ul (3.5-10.8)
[2018-05-07 05:46] LABS: EGFR Non-African American 88.9 (>60)
[2018-05-07] MEDS: Heparin VIAL(*) 5000 UNITS/ML VIAL (FIVE THOUSAND) SUBCUT SCH ×3 (06:37→21:29)
[2018-05-07] MEDS: amLODIPine TAB* 5 MG PO SCH (09:47)
[2018-05-07] MEDS: Potassium Chlor TAB* 20 MEQ TAB.ER PO SCH (09:48)
[2018-05-07] MEDS: Magnesium Oxide TAB* 400 MG PO SCH ×2 (09:49→21:28)
[2018-05-07] MEDS: [UNRECOGNIZED DRUG - OTHER] PO SCH (09:49)
[2018-05-07] MEDS: [UNRECOGNIZED DRUG - OTHER] PO SCH (10:06)
[2018-05-07] MEDS: Docusate CAP* 100 MG PO SCH ×2 (10:07→21:31)
[2018-05-07] MEDS: [UNRECOGNIZED DRUG - OTHER] PO SCH ×2 (10:07→21:31)
[2018-05-07] MEDS: Polyethylene Glycol 3350* 17 GM PACKET PO SCH (10:07)
--- NOTE | 2018-05-07 18:14 | PN ---
Progress Note Date of Service: 05/07/18 Note: VERÓNICA DEGROOT was visited. Therapy notes read and reviewed. She has no complaints. Walks ok occasionally her left foot gets stuck. Needs an AFO Current Medications: Active Medications Generic Name Dose Route Start Last Admin Trade Name Freq PRN Reason Stop Dose Admin Acetaminophen 650 mg 03/21/18 11:15 05/05/18 21:32 Tylenol Tab* PO 325 mg Q4H PRN Administration FEVER > 101 Al Hydrox/Mg Hydrox/Simethicone 30 ml 03/21/18 11:15 Maalox Plus* PO Q6H PRN INDIGESTION Amlodipine Besylate 2.5 mg 05/07/18 09:00 05/07/18 09:47 Norvasc Tab* PO 2.5 mg DAILY TIMA Administration Bisacodyl 10 mg 03/21/18 11:49 Dulcolax Supp* SC DAILY PRN CONSTIPATION Calcium Carbonate 1,250 mg 03/21/18 11:52 04/01/18 09:13 Calcium Carbonate Tab* PO 1,250 mg BID PRN Administration indigestion Docusate Sodium 200 mg 03/21/18 21:00 05/07/18 10:07 Colace Cap* PO Not Given BID TIMA Heparin Sodium (Porcine) 5,000 units 03/21/18 14:00 05/07/18 14:40 Heparin Vial(*) SUBCUT 5,000 units Q8HR TIMA Administration Hydrocortisone 1 applic 05/02/18 10:44 05/02/18 19:18 Hytone Cream 1%* TOPICAL 1 applic TID PRN Administration itching Magnesium Oxide 400 mg 04/02/18 21:00 05/07/18 09:49 Magox 400 Tab* PO 400 mg BID TIMA Administration Pto:(Coromega [place]- 1 packet 03/22/18 09:00 05/07/18 10:06 3 1 Packet) PO Not Given QAM TIMA (Echinacea Goldseal 1 cap 03/27/18 09:00 05/07/18 10:07 1 Cap) PO Not Given BID TIMA Pto: (Advanced 2 cap 03/27/18 09:00 05/07/18 09:49 Acidophilus Cap) PO 2 cap DAILY TIMA Administration Polyethylene Glycol/Electrolytes 17 gm 03/22/18 09:00 05/07/18 10:07 Miralax* PO Not Given DAILY TIMA Potassium Chloride 20 meq 03/27/18 09:00 05/07/18 09:48 Klor Con Er Tab* PO 20 meq DAILY TIMA Administration Senna 2 tab 03/21/18 11:15 04/09/18 20:43 Senokot Tab* PO 2 tab BEDTIME PRN Administration CONSTIPATION Vital Signs: Vital Signs Temp Pulse Resp BP Pulse Ox 98.3 F 87 16 132/91 97 05/07/18 16:40 05/07/18 16:40 05/07/18 16:40 05/07/18 16:40 05/07/18 17:24 Lab Results: Laboratory Results - last 24 hr 05/07/18 05/07/18 04:59 04:59 WBC 7.4 RBC 3.97 L Hgb 13.6 Hct 39 MCV 98 H MCH 34 H MCHC 35 RDW 12 Plt Count 331 MPV 8.3 Neut % (Auto) 49.3 Lymph % (Auto) 31.1 [place] % (Auto) 14.2 H Eos % (Auto) 5.0 Baso % (Auto) 0.4 Absolute Neuts (auto) 3.6 Absolute Lymphs (auto) 2.3 Absolute Monos (auto) 1.0 H Absolute Eos (auto) 0.4 Absolute Basos (auto) 0 Absolute Nucleated RBC 0 Nucleated RBC % 0.1 Sodium 140 Potassium 4.1 Chloride 106 Carbon Dioxide 27 Anion Gap 7 BUN 11 Creatinine 0.67 Est GFR ( Amer) 107.6 Est GFR (Non-Af Amer) 88.9 BUN/Creatinine Ratio 16.4 Glucose 91 Calcium 9.7 Magnesium 1.6 L Total Bilirubin 0.40 AST 21 ALT 35 Alkaline Phosphatase 49 Total Protein 6.5 Albumin 3.8 Globulin 2.7 Albumin/Globulin Ratio 1.4 Exam: GENERAL: no acute distress. alert and appropriate. LUNGS: clear to auscultation bilaterally. HEART: regular rate and rhythm ABDOMEN: + bowel sounds, soft, non-tender, non-distended EXTREMITIES: no edema. lacks full extension in the left elbow. NEUROLOGIC: Left CN VII palsy. 5/5 motor in her right upper and lower extremity with normal sensation. Left UE 2/5 shoulder adduction, biceps. Left triceps 1/ 5. LLE motor showed 3/5 knee ext and hip flexion and hip extension, trace ankle PF. Sensation impaired on left side. Assessment/Plan: 1. Intracranial hemorrhage. Will need repeat MRI of her brain after she leaves , then follow up with Neurology. PT/OT. 2. F/E/N: Regular diet and thin liquids per speech.. On MgOx 400mg BID and KCL 20mEq daily. 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 ROM and stretching daily. 4. Hypertension. Continue with Norvasc. 5. Advanced Directives: She is a full code. Her son, Jt, is her surrogate decision maker. 6. DVT Prophylaxis: TEDs. Blood thinners contraindicated due to ICH 7. Estimated LOS: estimate d/c around 05/13/18. 05/07/18 18:14
[2018-05-08] MEDS: Heparin VIAL(*) 5000 UNITS/ML VIAL (FIVE THOUSAND) SUBCUT SCH ×3 (06:17→22:25)
[2018-05-08] MEDS: [UNRECOGNIZED DRUG - OTHER] PO SCH (09:15)
[2018-05-08] MEDS: Magnesium Oxide TAB* 400 MG PO SCH ×2 (09:16→20:01)
[2018-05-08] MEDS: Potassium Chlor TAB* 20 MEQ TAB.ER PO SCH (09:16)
[2018-05-08] MEDS: [UNRECOGNIZED DRUG - OTHER] PO SCH ×2 (09:18→19:51)
[2018-05-08] MEDS: amLODIPine TAB* 5 MG PO SCH (09:18)
[2018-05-08] MEDS: [UNRECOGNIZED DRUG - OTHER] PO SCH (09:18)
[2018-05-08] MEDS: Docusate CAP* 100 MG PO SCH ×2 (09:18→19:12)
[2018-05-08] MEDS: Polyethylene Glycol 3350* 17 GM PACKET PO SCH (09:18)
--- NOTE | 2018-05-08 19:24 | PN ---
Progress Note Date of Service: 05/08/18 Note: VERÓNICA DEGROOT was visited. Therapy notes read and reviewed. She has no complaints. We have ordered her a custom, solid ankle AFO Current Medications: Active Medications Generic Name Dose Route Start Last Admin Trade Name Freq PRN Reason Stop Dose Admin Acetaminophen 650 mg 03/21/18 11:15 05/05/18 21:32 Tylenol Tab* PO 325 mg Q4H PRN Administration FEVER > 101 Al Hydrox/Mg Hydrox/Simethicone 30 ml 03/21/18 11:15 Maalox Plus* PO Q6H PRN INDIGESTION Amlodipine Besylate 2.5 mg 05/07/18 09:00 05/08/18 09:18 Norvasc Tab* PO 2.5 mg DAILY TIMA Administration Bisacodyl 10 mg 03/21/18 11:49 Dulcolax Supp* [place] DAILY PRN CONSTIPATION Calcium Carbonate 1,250 mg 03/21/18 11:52 04/01/18 09:13 Calcium Carbonate Tab* PO 1,250 mg BID PRN Administration indigestion Docusate Sodium 200 mg 03/21/18 21:00 05/08/18 19:12 Colace Cap* PO Not Given BID TIMA Heparin Sodium (Porcine) 5,000 units 03/21/18 14:00 05/08/18 14:17 Heparin Vial(*) SUBCUT 5,000 units Q8HR TIMA Administration Hydrocortisone 1 applic 05/02/18 10:44 05/02/18 19:18 Hytone Cream 1%* TOPICAL 1 applic TID PRN Administration itching Magnesium Oxide 400 mg 04/02/18 21:00 05/08/18 09:16 Magox 400 Tab* PO 400 mg BID TIMA Administration Pto:(Coromega [place]- 1 packet 03/22/18 09:00 05/08/18 09:18 3 1 Packet) PO Not Given QAM TIMA (Echinacea Goldseal 1 cap 03/27/18 09:00 05/08/18 09:18 1 Cap) PO Not Given BID TIMA Pto: (Advanced 2 cap 03/27/18 09:00 05/08/18 09:15 Acidophilus Cap) PO 2 cap DAILY TIMA Administration Polyethylene Glycol/Electrolytes 17 gm 03/22/18 09:00 05/08/18 09:18 Miralax* PO Not Given DAILY TIMA Potassium Chloride 20 meq 03/27/18 09:00 05/08/18 09:16 Klor Con Er Tab* PO 20 meq DAILY TIMA Administration Senna 2 tab 03/21/18 11:15 04/09/18 20:43 Senokot Tab* PO 2 tab BEDTIME PRN Administration CONSTIPATION Vital Signs: Vital Signs Temp Pulse Resp BP Pulse Ox 98.5 F 82 18 110/75 99 05/08/18 15:50 05/08/18 15:50 05/08/18 15:50 05/08/18 15:50 05/08/18 16:06 Exam: GENERAL: no acute distress. alert and appropriate. LUNGS: clear to auscultation bilaterally. HEART: regular rate and rhythm ABDOMEN: + bowel sounds, soft, non-tender, non-distended EXTREMITIES: no edema. lacks full extension in the left elbow. NEUROLOGIC: Left CN VII palsy. 5/5 motor in her right upper and lower extremity with normal sensation. Left UE 2/5 shoulder adduction, biceps. Left triceps 1/ 5. LLE motor showed 3/5 knee ext and hip flexion and hip extension, trace ankle PF. Sensation impaired on left side. Assessment/Plan: 1. Intracranial hemorrhage. Will need repeat MRI of her brain after she leaves , then follow up with Neurology. PT/OT. 2. F/E/N: Regular diet and thin liquids per speech.. On MgOx 400mg BID and KCL 20mEq daily. 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 ROM and stretching daily. 4. Hypertension. Continue with Norvasc. 5. Advanced Directives: She is a full code. Her son, Jt, is her surrogate decision maker. 6. DVT Prophylaxis: TEDs. Blood thinners contraindicated due to ICH 7. Estimated LOS: estimate d/c around 05/13/18. 05/08/18 19:24
[2018-05-09] MEDS: Heparin VIAL(*) 5000 UNITS/ML VIAL (FIVE THOUSAND) SUBCUT SCH ×3 (04:57→21:25)
[2018-05-09] MEDS: Potassium Chlor TAB* 20 MEQ TAB.ER PO SCH (08:41)
[2018-05-09] MEDS: Magnesium Oxide TAB* 400 MG PO SCH ×2 (08:42→20:00)
[2018-05-09] MEDS: amLODIPine TAB* 5 MG PO SCH (08:44)
[2018-05-09] MEDS: Docusate CAP* 100 MG PO SCH ×2 (08:46→20:01)
[2018-05-09] MEDS: [UNRECOGNIZED DRUG - OTHER] PO SCH ×2 (08:46→20:00)
[2018-05-09] MEDS: [UNRECOGNIZED DRUG - OTHER] PO SCH (08:46)
[2018-05-09] MEDS: [UNRECOGNIZED DRUG - OTHER] PO SCH (08:46)
[2018-05-09] MEDS: Polyethylene Glycol 3350* 17 GM PACKET PO SCH (08:46)
--- NOTE | 2018-05-09 15:22 | PN ---
Progress Note Date of Service: 05/09/18 Note: VERÓNICA DEGROOT was visited. Therapy notes read and reviewed. Getting ready to go home, no complaints Current Medications: Active Medications Generic Name Dose Route Start Last Admin Trade Name Freq PRN Reason Stop Dose Admin Acetaminophen 650 mg 03/21/18 11:15 05/05/18 21:32 Tylenol Tab* PO 325 mg Q4H PRN Administration FEVER > 101 Al Hydrox/Mg Hydrox/Simethicone 30 ml 03/21/18 11:15 Maalox Plus* PO Q6H PRN INDIGESTION Amlodipine Besylate 2.5 mg 05/07/18 09:00 05/09/18 08:44 Norvasc Tab* PO 2.5 mg DAILY TIMA Administration Bisacodyl 10 mg 03/21/18 11:49 Dulcolax Supp* [place] DAILY PRN CONSTIPATION Calcium Carbonate 1,250 mg 03/21/18 11:52 04/01/18 09:13 Calcium Carbonate Tab* PO 1,250 mg BID PRN Administration indigestion Docusate Sodium 200 mg 03/21/18 21:00 05/09/18 08:46 Colace Cap* PO Not Given BID TIMA Heparin Sodium (Porcine) 5,000 units 03/21/18 14:00 05/09/18 13:49 Heparin Vial(*) SUBCUT 5,000 units Q8HR TIMA Administration Hydrocortisone 1 applic 05/02/18 10:44 05/02/18 19:18 Hytone Cream 1%* TOPICAL 1 applic TID PRN Administration itching Magnesium Oxide 400 mg 04/02/18 21:00 05/09/18 08:42 Magox 400 Tab* PO 400 mg BID TIMA Administration Pto:(Coromega [place]- 1 packet 03/22/18 09:00 05/09/18 08:46 3 1 Packet) PO Not Given QAM TIMA (Echinacea Goldseal 1 cap 03/27/18 09:00 05/09/18 08:46 1 Cap) PO Not Given BID TIMA Pto: (Advanced 2 cap 03/27/18 09:00 05/09/18 08:46 Acidophilus Cap) PO 2 cap DAILY TIMA Administration Polyethylene Glycol/Electrolytes 17 gm 03/22/18 09:00 05/09/18 08:46 Miralax* PO Not Given DAILY TIMA Potassium Chloride 20 meq 03/27/18 09:00 05/09/18 08:41 Klor Con Er Tab* PO 20 meq DAILY TIMA Administration Senna 2 tab 03/21/18 11:15 04/09/18 20:43 Senokot Tab* PO 2 tab BEDTIME PRN Administration CONSTIPATION Vital Signs: Vital Signs Temp Pulse Resp BP Pulse Ox 98.7 F 77 20 111/68 97 05/09/18 05:06 05/09/18 05:06 05/09/18 08:00 05/09/18 05:06 05/09/18 08:00 Exam: GENERAL: no acute distress. alert and appropriate. LUNGS: clear to auscultation bilaterally. HEART: regular rate and rhythm ABDOMEN: + bowel sounds, soft, non-tender, non-distended EXTREMITIES: no edema. lacks full extension in the left elbow. NEUROLOGIC: Left CN VII palsy. 5/5 motor in her right upper and lower extremity with normal sensation. Left UE 2/5 shoulder adduction, biceps. Left triceps 1/ 5. LLE motor showed 3/5 knee ext and hip flexion and hip extension, trace ankle PF. Sensation impaired on left side. Assessment/Plan: 1. Intracranial hemorrhage. Will need repeat MRI of her brain after she leaves , then follow up with Neurology. PT/OT. 2. F/E/N: Regular diet and thin liquids per speech.. On MgOx 400mg BID and KCL 20mEq daily. 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 ROM and stretching daily. 4. Hypertension. Continue with Norvasc. 5. Advanced Directives: She is a full code. Her son, Jt, is her surrogate decision maker. 6. DVT Prophylaxis: TEDs. Blood thinners contraindicated due to ICH 7. Estimated LOS: estimate d/c around 05/13/18. 05/09/18 15:22
[2018-05-09] MEDS: Acetaminophen TAB* 325 MG PO PRN (23:38)
[2018-05-10] MEDS: Heparin VIAL(*) 5000 UNITS/ML VIAL (FIVE THOUSAND) SUBCUT SCH ×3 (05:16→21:12)
[2018-05-10] MEDS: [UNRECOGNIZED DRUG - OTHER] PO SCH (08:52)
[2018-05-10] MEDS: Magnesium Oxide TAB* 400 MG PO SCH ×2 (08:52→20:23)
[2018-05-10] MEDS: [UNRECOGNIZED DRUG - OTHER] PO SCH ×2 (08:53→20:21)
[2018-05-10] MEDS: amLODIPine TAB* 5 MG PO SCH (08:53)
[2018-05-10] MEDS: Polyethylene Glycol 3350* 17 GM PACKET PO SCH (08:53)
[2018-05-10] MEDS: Potassium Chlor TAB* 20 MEQ TAB.ER PO SCH (08:53)
[2018-05-10] MEDS: Docusate CAP* 100 MG PO SCH ×2 (08:53→20:21)
[2018-05-10] MEDS: [UNRECOGNIZED DRUG - OTHER] PO SCH (08:59)
--- NOTE | 2018-05-10 20:31 | PN ---
Progress Note Date of Service: 05/10/18 Note: VERÓNICA DEGROOT was visited. Nursing notes read and reviewed. She has no complaints. Getting ready to go home Current Medications: Active Medications Generic Name Dose Route Start Last Admin Trade Name Freq PRN Reason Stop Dose Admin Acetaminophen 650 mg 03/21/18 11:15 05/09/18 23:38 Tylenol Tab* PO 650 mg Q4H PRN Administration FEVER > 101 Al Hydrox/Mg Hydrox/Simethicone 30 ml 03/21/18 11:15 Maalox Plus* PO Q6H PRN INDIGESTION Amlodipine Besylate 2.5 mg 05/07/18 09:00 05/10/18 08:53 Norvasc Tab* PO 2.5 mg DAILY TIMA Administration Bisacodyl 10 mg 03/21/18 11:49 Dulcolax Supp* [place] DAILY PRN CONSTIPATION Calcium Carbonate 1,250 mg 03/21/18 11:52 04/01/18 09:13 Calcium Carbonate Tab* PO 1,250 mg BID PRN Administration indigestion Docusate Sodium 200 mg 03/21/18 21:00 05/10/18 20:21 Colace Cap* PO Not Given BID TIMA Heparin Sodium (Porcine) 5,000 units 03/21/18 14:00 05/10/18 14:20 Heparin Vial(*) SUBCUT 5,000 units Q8HR TIMA Administration Hydrocortisone 1 applic 05/02/18 10:44 05/02/18 19:18 Hytone Cream 1%* TOPICAL 1 applic TID PRN Administration itching Magnesium Oxide 400 mg 04/02/18 21:00 05/10/18 20:23 Magox 400 Tab* PO 400 mg BID TIMA Administration Pto:(Coromega [place]- 1 packet 03/22/18 09:00 05/10/18 08:52 3 1 Packet) PO Not Given QAM TIMA (Echinacea Goldseal 1 cap 03/27/18 09:00 05/10/18 20:21 1 Cap) PO Not Given BID TIMA Pto: (Advanced 2 cap 03/27/18 09:00 05/10/18 08:59 Acidophilus Cap) PO 2 cap DAILY TIMA Administration Polyethylene Glycol/Electrolytes 17 gm 03/22/18 09:00 05/10/18 08:53 Miralax* PO Not Given DAILY TIMA Potassium Chloride 20 meq 03/27/18 09:00 05/10/18 08:53 Klor Con Er Tab* PO 20 meq DAILY TIMA Administration Senna 2 tab 03/21/18 11:15 04/09/18 20:43 Senokot Tab* PO 2 tab BEDTIME PRN Administration CONSTIPATION Vital Signs: Vital Signs Temp Pulse Resp BP Pulse Ox 97.7 F 87 20 108/76 99 05/10/18 16:25 05/10/18 16:25 05/10/18 19:11 05/10/18 16:25 05/10/18 19:11 Exam: LUNGS: clear bilaterally HEART: regular rhythm ABDOMEN: Soft, +BS EXTREMITIES: contracture at left elbow NEUROLOGIC: Left CN VII palsy. Left hip flexors 2/5, DF trace, quads 3/5, hamstrings 3/5. LUE 2/5 biceps, 1-2/5 triceps Assessment/Plan: 1. Intracranial hemorrhage. Will need repeat MRI of her brain after she leaves , then follow up with Neurology. PT/OT. 2. F/E/N: Regular diet and thin liquids per speech.. On MgOx 400mg BID and KCL 20mEq daily. 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 ROM and stretching daily. 4. Hypertension. Continue with Norvasc. 5. Advanced Directives: She is a full code. Her son, Jt, is her surrogate decision maker. 6. DVT Prophylaxis: TEDs. Blood thinners contraindicated due to ICH 7. Estimated LOS: estimate d/c around 05/13/18. 05/10/18 20:33
[2018-05-11] MEDS: Heparin VIAL(*) 5000 UNITS/ML VIAL (FIVE THOUSAND) SUBCUT SCH ×3 (05:31→22:13)
[2018-05-11] MEDS: Polyethylene Glycol 3350* 17 GM PACKET PO SCH (08:02)
[2018-05-11] MEDS: Docusate CAP* 100 MG PO SCH ×2 (08:02→20:08)
[2018-05-11] MEDS: [UNRECOGNIZED DRUG - OTHER] PO SCH (09:08)
[2018-05-11] MEDS: amLODIPine TAB* 5 MG PO SCH (09:09)
[2018-05-11] MEDS: [UNRECOGNIZED DRUG - OTHER] PO SCH (09:11)
[2018-05-11] MEDS: [UNRECOGNIZED DRUG - OTHER] PO SCH ×2 (09:11→20:08)
[2018-05-11] MEDS: Potassium Chlor TAB* 20 MEQ TAB.ER PO SCH (09:11)
[2018-05-11] MEDS: Magnesium Oxide TAB* 400 MG PO SCH ×2 (09:11→20:09)
--- NOTE | 2018-05-11 15:56 | PN ---
Progress Note Date of Service: 05/11/18 Note: VERÓNICA DEGROOT was visited. Nursing notes read and reviewed. She has no complaints. Doing ok Current Medications: Active Medications Generic Name Dose Route Start Last Admin Trade Name Freq PRN Reason Stop Dose Admin Acetaminophen 650 mg 03/21/18 11:15 05/09/18 23:38 Tylenol Tab* PO 650 mg Q4H PRN Administration FEVER > 101 Al Hydrox/Mg Hydrox/Simethicone 30 ml 03/21/18 11:15 Maalox Plus* PO Q6H PRN INDIGESTION Amlodipine Besylate 2.5 mg 05/07/18 09:00 05/11/18 09:09 Norvasc Tab* PO 2.5 mg DAILY TIMA Administration Bisacodyl 10 mg 03/21/18 11:49 Dulcolax Supp* [place] DAILY PRN CONSTIPATION Calcium Carbonate 1,250 mg 03/21/18 11:52 04/01/18 09:13 Calcium Carbonate Tab* PO 1,250 mg BID PRN Administration indigestion Docusate Sodium 200 mg 03/21/18 21:00 05/11/18 08:02 Colace Cap* PO Not Given BID TIMA Heparin Sodium (Porcine) 5,000 units 03/21/18 14:00 05/11/18 14:16 Heparin Vial(*) SUBCUT 5,000 units Q8HR TIMA Administration Hydrocortisone 1 applic 05/02/18 10:44 05/02/18 19:18 Hytone Cream 1%* TOPICAL 1 applic TID PRN Administration itching Magnesium Oxide 400 mg 04/02/18 21:00 05/11/18 09:11 Magox 400 Tab* PO 400 mg BID TIMA Administration Pto:(Coromega [place]- 1 packet 03/22/18 09:00 05/11/18 09:11 3 1 Packet) PO Not Given QAM TIMA (Echinacea Goldseal 1 cap 03/27/18 09:00 05/11/18 09:11 1 Cap) PO Not Given BID TIMA Pto: (Advanced 2 cap 03/27/18 09:00 05/11/18 09:08 Acidophilus Cap) PO 2 cap DAILY TIMA Administration Polyethylene Glycol/Electrolytes 17 gm 03/22/18 09:00 05/11/18 08:02 Miralax* PO Not Given DAILY TIMA Potassium Chloride 20 meq 03/27/18 09:00 08/26/18 09:11 Klor Con Er Tab* PO 20 meq DAILY TIMA Administration Senna 2 tab 03/21/18 11:15 04/09/18 20:43 Senokot Tab* PO 2 tab BEDTIME PRN Administration CONSTIPATION Vital Signs: Vital Signs Temp Pulse Resp BP Pulse Ox 97.8 F 70 16 115/71 96 05/11/18 05:09 05/11/18 05:09 05/11/18 05:09 05/11/18 05:09 05/11/18 05:09 Exam: LUNGS: clear bilaterally HEART: regular rhythm ABDOMEN: Soft, +BS EXTREMITIES: contracture at left elbow NEUROLOGIC: Left CN VII palsy. Left hip flexors 2/5, DF trace, quads 3/5, hamstrings 3/5. LUE 2/5 biceps, 1-2/5 triceps Assessment/Plan: 1. Intracranial hemorrhage. Will need repeat MRI of her brain after she leaves , then follow up with Neurology. PT/OT. Left solid ankle AFO has been ordered 2. F/E/N: Regular diet and thin liquids per speech.. On MgOx 400mg BID and KCL 20mEq daily. 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 ROM and stretching daily. 4. Hypertension. Continue with Norvasc. 5. Advanced Directives: She is a full code. Her son, Jt, is her surrogate decision maker. 6. DVT Prophylaxis: TEDs. Blood thinners contraindicated due to ICH 7. Estimated LOS: estimate d/c around 05/13/18. 05/11/18 15:57
[2018-05-12] MEDS: Heparin VIAL(*) 5000 UNITS/ML VIAL (FIVE THOUSAND) SUBCUT SCH ×3 (05:47→21:39)
[2018-05-12] MEDS: [UNRECOGNIZED DRUG - OTHER] PO SCH (08:44)
[2018-05-12] MEDS: [UNRECOGNIZED DRUG - OTHER] PO SCH ×2 (08:47→19:46)
[2018-05-12] MEDS: Docusate CAP* 100 MG PO SCH ×2 (08:49→19:46)
[2018-05-12] MEDS: Polyethylene Glycol 3350* 17 GM PACKET PO SCH (08:49)
[2018-05-12] MEDS: [UNRECOGNIZED DRUG - OTHER] PO SCH (08:50)
[2018-05-12] MEDS: Potassium Chlor TAB* 20 MEQ TAB.ER PO SCH (08:50)
[2018-05-12] MEDS: Magnesium Oxide TAB* 400 MG PO SCH ×2 (08:50→19:58)
[2018-05-12] MEDS: amLODIPine TAB* 5 MG PO SCH (08:51)
--- NOTE | 2018-05-12 17:46 | PN ---
Progress Note Date of Service: 05/12/18 Note: VERÓNICA DEGROOT was visited. Therapy notes read and reviewed. The patient's family no longer believes she would be safe at home and they don't think they can make a safe environment for her. Will work on transfer to a SNF for subacute rehab Current Medications: Active Medications Generic Name Dose Route Start Last Admin Trade Name Freq PRN Reason Stop Dose Admin Acetaminophen 650 mg 03/21/18 11:15 05/09/18 23:38 Tylenol Tab* PO 650 mg Q4H PRN Administration FEVER > 101 Al Hydrox/Mg Hydrox/Simethicone 30 ml 03/21/18 11:15 Maalox Plus* PO Q6H PRN INDIGESTION Amlodipine Besylate 2.5 mg 05/07/18 09:00 05/12/18 08:51 Norvasc Tab* PO 2.5 mg DAILY TIMA Administration Bisacodyl 10 mg 03/21/18 11:49 Dulcolax Supp* [place] DAILY PRN CONSTIPATION Calcium Carbonate 1,250 mg 03/21/18 11:52 04/01/18 09:13 Calcium Carbonate Tab* PO 1,250 mg BID PRN Administration indigestion Docusate Sodium 200 mg 03/21/18 21:00 05/12/18 08:49 Colace Cap* PO Not Given BID TIMA Heparin Sodium (Porcine) 5,000 units 03/21/18 14:00 05/12/18 14:19 Heparin Vial(*) SUBCUT 5,000 units Q8HR TIMA Administration Hydrocortisone 1 applic 05/02/18 10:44 05/02/18 19:18 Hytone Cream 1%* TOPICAL 1 applic TID PRN Administration itching Magnesium Oxide 400 mg 04/02/18 21:00 05/12/18 08:50 Magox 400 Tab* PO 400 mg BID TIMA Administration Pto:(Coromega [place]- 1 packet 03/22/18 09:00 05/12/18 08:44 3 1 Packet) PO Not Given QAM TIMA (Echinacea Goldseal 1 cap 03/27/18 09:00 05/12/18 08:47 1 Cap) PO Not Given BID TIMA Pto: (Advanced 2 cap 03/27/18 09:00 05/12/18 08:50 Acidophilus Cap) PO 2 cap DAILY TIMA Administration Polyethylene Glycol/Electrolytes 17 gm 03/22/18 09:00 05/12/18 08:49 Miralax* PO Not Given DAILY TIMA Potassium Chloride 20 meq 03/27/18 09:00 05/12/18 08:50 Klor Con Er Tab* PO 20 meq DAILY TIMA Administration Senna 2 tab 03/21/18 11:15 04/09/18 20:43 Senokot Tab* PO 2 tab BEDTIME PRN Administration CONSTIPATION Vital Signs: Vital Signs Temp Pulse Resp BP Pulse Ox 98.0 F 80 18 135/98 100 05/12/18 16:05 05/12/18 16:05 05/12/18 16:05 05/12/18 16:05 05/12/18 16:36 Exam: LUNGS: clear bilaterally HEART: regular rhythm ABDOMEN: Soft, +BS EXTREMITIES: contracture at left elbow NEUROLOGIC: Left CN VII palsy. Left hip flexors 2/5, DF trace, quads 3/5, hamstrings 3/5. LUE 2/5 biceps, 1-2/5 triceps Assessment/Plan: 1. Intracranial hemorrhage. Will need repeat MRI of her brain after she leaves , then follow up with Neurology. PT/OT. Left solid ankle AFO has been ordered 2. F/E/N: Regular diet and thin liquids per speech.. On MgOx 400mg BID and KCL 20mEq daily. 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 ROM and stretching daily. 4. Hypertension. Continue with Norvasc. 5. Advanced Directives: She is a full code. Her son, Jt, is her surrogate decision maker. 6. DVT Prophylaxis: TEDs. Blood thinners contraindicated due to ICH 7. Estimated LOS: will likely need transfer to SNF 05/12/18 17:47
[2018-05-13] MEDS: Heparin VIAL(*) 5000 UNITS/ML VIAL (FIVE THOUSAND) SUBCUT SCH ×3 (06:03→21:36)
[2018-05-13] MEDS: [UNRECOGNIZED DRUG - OTHER] PO SCH (10:08)
[2018-05-13] MEDS: amLODIPine TAB* 5 MG PO SCH (10:11)
[2018-05-13] MEDS: Magnesium Oxide TAB* 400 MG PO SCH ×2 (10:11→20:50)
[2018-05-13] MEDS: Potassium Chlor TAB* 20 MEQ TAB.ER PO SCH (10:12)
[2018-05-13] MEDS: [UNRECOGNIZED DRUG - OTHER] PO SCH (10:57)
[2018-05-13] MEDS: Docusate CAP* 100 MG PO SCH ×2 (10:58→20:49)
[2018-05-13] MEDS: Polyethylene Glycol 3350* 17 GM PACKET PO SCH (10:58)
[2018-05-13] MEDS: [UNRECOGNIZED DRUG - OTHER] PO SCH ×2 (10:58→20:50)
--- NOTE | 2018-05-13 13:05 | PMRUTEAM ---
PMRU: Team Meeting Current Status: Nursing: Current Status Skin Deviations [Back] Rash,Other Skin Deviations [Left Elbow] Other Skin Deviations [Abdomen] Rash Skin Deviations [Coccyx] Other Skin Deviations [Right Groin] Previous Access Point Skin Deviation Description [ resolved Back] Skin Deviation Description [ no deviation noted Left Elbow] Skin Deviation Description [ resolving Abdomen] Skin Deviation Description [ slightly reddened Coccyx] Skin Deviation Description [ healed Right Groin] Bladder Current Status voiding Bowel Current Status daily bowel mov'ts Nutrition Current Status appetite good Medication Current Status Pt w good understanding of medications, reinforcement Physical Therapy: Current Status Bed Mobility Assistance 2 or More Person Assist Transfer Moblility Assistance Supervision,Contact Guard Assist Transfer/Bed Mobility Manoj Walker Recommended Devices Ambulation Assistance Supervision,Contact Guard Assist Ambulation Assistive Devices Manoj Walker Number of Feet Patient 110' Ambulated Stairs Assistance Not Tested Stairs Recommended Devices One Rail Number of Stairs 3 Manual Wheelchair Control/ Bilateral LE's Technique Wheelchair Propulsion Ability Minimum Assistance Wheelchair Distance (ft) 100 Objective Comments step to pattern ascend/descending stairs; PT's leg midline in front of pt's body when descending stairs in order to force pt to step LLE out to the side rather than adducting across midline. Occupational Therapy: Current Status Upper Body Dressing Supervision Lower Body Dressing Contact Guard Assist,Mod Assist,Max Asst Lower Body Dressing Progress mod - min. More I when doing in bed Bathing Supervision Bathing Progress in shower w/c Toileting Supervision,Contact Guard Assist Toileting Progress manoj walker Toilet Transfer Supervision,Contact Guard Assist Toilet Transfer Progress manoj walker Shower Transfer Contact Guard Assist Shower Transfer Progress not attempted showers in w/c Eating Independent Eating Progress set up Rec Therapy: Current Status Summary of Assessment and RT assessment complete and pt. is aware of Clinical Impression services. Pt. has been actively engaged in leisure activities independently and sessions with this screenplay writer while on the unit, mainly crafts. Pt . tearful today (05/12/18) about d/c planning issues. Treatment Goals Patient will engage in recreation and leisure activities while on the unit. Treatment Plan Provide and encourage involvement in RT services. Provide emotional support as necessary. Social Work: Current Status Discharge Plan return home with home care svs and family support Potential for Family Training pt's son is involved and supportive Anticipated Discharge Home Destination Discharge With home care svs and family support Nutrition: Current Status Monitoring Continues to eat nearly 100% of most meals. BMs , 05/06. Mag 1.7; Magox BID continues. Regular textures tolerated and remain appropriate. Appears to be meeting most goals as outlined below ; could consider increasing Magox to TID, as serum mag remaining slightly below normal range. Speech: Current Status Assessment On the Donn Cognitive Assessment (MOCA) Emily. 7 .2, patient scored 27/30, where 26 or greater is within normal limits. This result indicates the patient's cognitive-communication status is within functional limits. Patient has met all cognitive-communication goals. Recommend discharge skilled speech therapy interventions. Speech Current Status Goal 1 Within Functional linits Speech Goal 2 Current Status Mild impairment Speech Goal 3 Current Status Mild impairment Goals: Physical Therapy: Initial Goals Bed Mobility Assistance Independent Transfer Mobility Assistance Independent Transfer/Bed Mobility Manoj Walker Recommended Devices Ambulation Independent Ambulation Recommended Devices Manoj Walker Ambulation Distance 50 Wheelchair Propulsion Ability Independent Stairs Assistance Independent Stair Recommended Devices One Rail Number of Stairs 5 Physical Therapy: Updated Goals Transfer/Bed Mobility Lisa Lift Recommended Devices Occupational Therapy: Initial Goals Goals to be Completed in (Days 4-6 weeks ) Upper Body Bathing Routine Modified Independent with Lower Body Bathing Routine Modified Independent with Upper Body Dressing Routine Modified Independent with Lower Body Dressing Routine Modified Independent with Toilet Hygeine and Clothing Modified Independent with Management Routine Toilet Transfer Routine Modified Independent with Tub Transfer Routine Supervision/Set Up Functional Transfers for ADL Modified Independent with Grooming Routine Modified Independent with Feeding Routine Modified Independent with Nursing: Goals Bladder Goal indep Bowel Goal indep Nutrition Goal indep Medication Goal indep Nutrition: Goals Intervention Goals 1. Pt will tolerate least-restrictive diet texture without s/sx difficulty chewing 2. Intake will remain >75% of meals 3. Intake will be adequate to maintain stable wt, hydration, and lean body mass 4. Serum magnesium will return to normal range w/ daily supplementation and diet education Speech: Goals Speech Goal 1 Comprehension Speech Evaluation Status Goal Mild-moderate impairment 1 Speech Current Status Goal 1 Within Functional linits Goal 1 Comments Long-Term Goal: Pt will use compensatory strategies to demonstrate comprehension of paragraph length verbal and written information of moderate complexity, 100% accuracy, given minimal extra time, Independently. Status: Met. Short-Term Goal: Pt will use compensatory strategies to attend to information in the Left visual field and demonstrate comprehension of paragraph length verbal and written information of moderate complexity, 95% accuracy, given moderate extra time, Independently. Status: Met. GLASS SCIENCE ENGINEER directed patient to summarize her independent reading in the novel we had previously practiced left-sode scanning techniques. Patient summarized accurately using specific names, laces and events. Patient read and summarized 3 paragraphs accurately, with no neglect of left edge of lines or words, and accurate descripion of actions. Speech Goal 2 Problem Solving Speech Goal 2 Evaluation Moderate impairment Status Speech Goal 2 Current Status Mild impairment Speech Goal 2 Comments Long-Term Goal: Patient will use compensatory strategies to solve moderately complex routine problems, with 100% accuracy, Independently, for ADLs such as shopping, time and money management. Status: Met. Short-Term Goal: Patient will use compensatory strategies to attend to information in the Left visual field to solve moderately complex problems, with 90% accuracy, given Minimal skilled instruction and cueing. Status: Met. GLASS SCIENCE ENGINEER conducted further skilled cognitive- communication testing. On the Jackson Cognitive Assessment (MOCA) Emily. 7 .2, patient scored 27/30, where 26 or greater is within normal limits. Subscores for task domains: Visuospatial/Executive: 3/5 (-2: copying 3D rectangle, clock hands equal) Namin/3 Attention: /6 Language: /6 (-1: changed 1 of 21 words in sentence repetition) Abstraction: 2/2 Delayed Recall: 5/5 Orientation: 6/6. This result indicates the patient's cognitive- communication status is within functional limits. Speech Goal 3 Motor speech Speech Goal 3 Evaluation Moderate impairment Status Speech Goal 3 Current Status Mild impairment Speech Goal 3 Comments Chcf Goal: Patient will demonstrate improvement in range and rate of motion of her Left side labial retractors, elevators and depressors, to 90% of Right side, to achieve functional ability to eat and drink without spillage, speak with minimal distortion, and make appropriate facial expressions. Status: Met Short Term Goal: Patient will demonstrate improvement in range and rate of motion of her Left side labial retractors, elevators and depressors, to 90% of Right side, achieve functional ability to eat and drink without spillage, speak with minimal distortion, and make appropriate facial expressions, given Minimal cueing. Status: Met Patient completed oral motor exercises and repeated multipsyllabic target wordswith 100% intelligibility. Patient demonstrated symmetrical face at rest, symmetrical spontaneous fsacial expression including smile and frown, and 95-100% symmetrical isolated movements including Left side lip retraction and depression. Mildly decreased medial-left upper lip elevation does not impair functional use for expression and eating. Social Work: Goals Discharge Plan return home with home care svs and family support Potential for Family Training pt's son is involved and supportive Anticipated Discharge Home Destination Discharge With home care svs and family support Care Plan: Care Plan ADL's - Improve/Maintain Start: 03/23/18 00:21 Freq: DAILY Status: Active Target: Protocol: Activity Type Activity Date Activity User E-Sign Co-Sign Detail Recorded Client Recorded Date Recorded By Document 05/12/18 14:43 [id number] [id number] 05/12/18 14:43 [id number] 05/12/18 14:43 PMRU Outcome: ADL's/ADL Transfers Orders/Interventions Occupational Therapy Evaluation & Treatment Communication Tool in Patient Room Patient to receive OT 5x/wk for 60-120 Therex min/day Self Care Management Group Therapy Neuromuscular ReEducation UE/LE ADL's with Assist Yes: mod I ADL Transfers with Assist Yes: mod I Toileting: Transfers,Clothing Management Yes: mod I ,Hygeine w/Assist Progression Toward Outcome/Goals Progressing Outcome/Goals Met Pt completes ADL with assist from screenplay writer and her friend. Her friend is educated about pt's current needs/deficits throughout the session. She verbalizes understanding but both pt and friend seem to lack insight into how much assistance and supervision pt will need at home. SW notified. Also, pt remains unaware of her bathroom set-up at home so screenplay writer is unable to having SW order appropraite DME. Pt's son is no longer willing to complete family training and is voicing that he probably doesn't want his mother to return home with him. Manager Ent to voice concerns to MD . [ End ] Communication-Improve/Maintain Start: 03/23/18 00:21 Freq: DAILY Status: Active Target: Protocol: Activity Type Activity Date Activity User E-Sign Co-Sign Detail Recorded Client Recorded Date Recorded By Document 05/12/18 08:00 [id number] [email or web address] 05/12/18 16:39 [id number] 05/12/18 08:00 PMRU Outcome: Communication/Cognitive Status Outcome/Goals Makes Needs Known Effectively Progression Toward Outcomes/Goals Progressing Discharge Planning - Improve/Maintain Start: 03/23/18 00:21 Freq: DAILY Status: Active Target: Protocol: Activity Type Activity Date Activity User E-Sign Co-Sign Detail Recorded Client Recorded Date Recorded By Document 05/12/18 08:00 [id number] [email or web address] 05/12/18 16:39 [id number] 05/12/18 08:00 PMRU Outcome: Discharge Planning Update Patient Family No Outcome/Goals Demonstrates Understanding of Discharge Plan Progression Toward Outcome/Goals Progressing Education-Improve/Maintain Start: 03/23/18 00:21 Freq: QSHIFT Status: Active Target: Protocol: Activity Type Activity Date Activity User E-Sign Co-Sign Detail Recorded Client Recorded Date Recorded By Document 05/12/18 20:00 [id number] [id number] 05/13/18 01:27 [id number] 05/12/18 20:00 PMRU Outcome: Education Outcome/Goals Demonstrate/ Verbalize Understanding of Written Discharge Instructions Encourage Questions Progression Toward Outcome/Goals Progressing /GI-Improve/Maintain Start: 03/23/18 00:21 Freq: QSHIFT Status: Active Target: Protocol: Activity Type Activity Date Activity User E-Sign Co-Sign Detail Recorded Client Recorded Date Recorded By Document 05/12/18 20:00 [id number] [id number] 05/13/18 01:27 [id number] 05/12/18 20:00 PMRU Outcome: Genitourinary/ Gastrointestinal Genitourinary- Outcome/Goals Maintain/ Achieve Urinary Continence Gastrointestinal-Outcome/Goals Maintain/ Achieve Bowel Regularity in Accordance with Pt's Baseline Prevent Constipation Progression Toward Outcome/Goals - Progressing Progression Toward Outcome/Goals - GI Progressing Mobility- Improve/Maintain Start: 03/21/18 17:34 Freq: DAILY Status: Active Target: Protocol: Activity Type Activity Date Activity User E-Sign Co-Sign Detail Recorded Client Recorded Date Recorded By Document 03/26/18 16:51 [id number] [email or web address] 03/26/18 16:51 [id number] 03/26/18 16:51 PMRU Outcome: Mobility Physical Therapy Evaluation and Yes Treatment Activity OOB with Assistance Yes WBAT Yes Device Yes Assistance Yes Patient to be seen 5x/wk for 60-120 min/ Therex day for: Mobility Training Gait Training W/C Mobility Balance Outcome/Goals Maintain/ Achieve Baseline Mobility Status Improve Mobility Status Demonstrates Proper Use of Assistive Devices Free from Complications of Immobility Progression Toward Outcome/Goals Progressing Outcome/Goals Met Comment improved ability to extend LLE against gravity Bed Mobility Yes: independnet Transfers Yes: independent with manoj walker Gait x ft Yes: independent with hemiwalker 50' W/C Mobility x ft Yes: independent with RU/LE 300' Up/Down Stairs Yes: inddependent up /down 5 stairs. Neurological- Improve/Maintain Start: 03/23/18 00:21 Freq: QSHIFT Status: Active Target: Protocol: Activity Type Activity Date Activity User E-Sign Co-Sign Detail Recorded Client Recorded Date Recorded By Document 05/12/18 20:00 [id number] [id number] 05/13/18 01:27 [id number] 05/12/18 20:00 PMRU Outcome: Neurological Weakness/Aphasia Weakness Left Side Outcome/Goals Maintain/ Achieve Baseline Neurological Status Improve Neurological Status Maintain/ Improve Strength/ROM Progression Toward Outcome/Goals Progressing Pain/Comfort- Improve/Maintain Start: 03/23/18 00:21 Freq: QSHIFT Status: Complete Target: Protocol: Activity Type Activity Date Activity User E-Sign Co-Sign Detail Recorded Client Recorded Date Recorded By Document 04/25/18 10:07 [id number] 04/25/18 10:08 [id number] 04/25/18 10:07 PMRU Outcome: Pain/Comfort Outcome/Goals Demonstrates Knowledge and Use of Available Comfort Measures Achieves Acceptable Comfort/Pain Level as Determined by Patient/Condit Maintain Comfort Level Allowing Patient to Fully Participate in Rehab Progression Toward Outcome/Goals Progressing Outcome/Goals Met Comment no c/o pain verbalized Safety- Improve/Maintain Start: 03/23/18 00:21 Freq: QSHIFT Status: Active Target: Protocol: Activity Type Activity Date Activity User E-Sign Co-Sign Detail Recorded Client Recorded Date Recorded By Document 05/12/18 20:00 [id number] [email or web address] 05/13/18 01:27 [id number] 05/12/18 20:00 PMRU Outcome: Safety Outcome/Goals Remain Free of Injury or Harm Cooperates with Safety Measures for Least Restrictive Environment Prevent Falls/ Injury Progression Toward Outcome/Goals Progressing Skin- Improve/Maintain Start: 03/23/18 00:21 Freq: QSHIFT Status: Active Target: Protocol: Activity Type Activity Date Activity User E-Sign Co-Sign Detail Recorded Client Recorded Date Recorded By Document 05/12/18 20:00 [id number] 05/13/18 01:27 [id number] 05/12/18 20:00 PMRU Outcome: Skin Skin Risk Level High Skin Orders Air Mattress Multipodus Boot Dressing Change Comments Pillows Outcome/Goals Maintain/ Improve Skin Intergrity Progression Toward Outcome/Goals Progressing Medicine Note: Length of Stay: 0-1 days Anticipated Discharge Destination: Home Tentative Discharge Date: 05/14/18 Discharged to: SNF
--- NOTE | 2018-05-13 18:25 | PN ---
Progress Note Date of Service: 05/13/18 Note: LARA JUNEGALINA was visited. Therapy notes read and reviewed. I met with Lara who now consents to a short period in Subacute rehab at [facility]. She is a little down Current Medications: Active Medications Generic Name Dose Route Start Last Admin Trade Name Freq PRN Reason Stop Dose Admin Acetaminophen 650 mg 03/21/18 11:15 05/09/18 23:38 Tylenol Tab* PO 650 mg Q4H PRN Administration FEVER > 101 Al Hydrox/Mg Hydrox/Simethicone 30 ml 03/21/18 11:15 Maalox Plus* PO Q6H PRN INDIGESTION Amlodipine Besylate 2.5 mg 05/07/18 09:00 05/13/18 10:11 Norvasc Tab* PO 2.5 mg DAILY TIMA Administration Bisacodyl 10 mg 03/21/18 11:49 Dulcolax Supp* [place] DAILY PRN CONSTIPATION Calcium Carbonate 1,250 mg 03/21/18 11:52 04/01/18 09:13 Calcium Carbonate Tab* PO 1,250 mg BID PRN Administration indigestion Docusate Sodium 200 mg 03/21/18 21:00 05/13/18 10:58 Colace Cap* PO Not Given BID TIMA Heparin Sodium (Porcine) 5,000 units 03/21/18 14:00 05/13/18 15:05 Heparin Vial(*) SUBCUT 5,000 units Q8HR TIMA Administration Hydrocortisone 1 applic 05/02/18 10:44 05/02/18 19:18 Hytone Cream 1%* TOPICAL 1 applic TID PRN Administration itching Magnesium Oxide 400 mg 04/02/18 21:00 05/13/18 10:11 Magox 400 Tab* PO 400 mg BID TIMA Administration Pto:(Coromega Sulphur- 1 packet 03/22/18 09:00 05/13/18 10:57 3 1 Packet) PO Not Given QAM TIMA (Echinacea Goldseal 1 cap 03/27/18 09:00 05/13/18 10:58 1 Cap) PO Not Given BID TIMA Pto: (Advanced 2 cap 03/27/18 09:00 05/13/18 10:08 Acidophilus Cap) PO 2 cap DAILY TIMA Administration Polyethylene Glycol/Electrolytes 17 gm 03/22/18 09:00 05/13/18 10:58 Miralax* PO Not Given DAILY TIMA Potassium Chloride 20 meq 03/27/18 09:00 05/13/18 10:12 Klor Con Er Tab* PO 20 meq DAILY TIMA Administration Senna 2 tab 03/21/18 11:15 04/09/18 20:43 Senokot Tab* PO 2 tab BEDTIME PRN Administration CONSTIPATION Vital Signs: Vital Signs Temp Pulse Resp BP Pulse Ox 98.8 F 78 16 127/86 98 05/13/18 16:43 05/13/18 16:43 05/13/18 16:43 05/13/18 16:43 05/13/18 16:43 Exam: LUNGS: clear bilaterally HEART: regular rhythm ABDOMEN: Soft, +BS EXTREMITIES: contracture at left elbow NEUROLOGIC: Left CN VII palsy. Left hip flexors 2/5, DF trace, quads 3/5, hamstrings 3/5. LUE 2/5 biceps, 1-2/5 triceps Assessment/Plan: 1. Intracranial hemorrhage. Will need repeat MRI of her brain after she leaves , then follow up with Neurology. PT/OT. Left solid ankle AFO has been ordered 2. F/E/N: Regular diet and thin liquids per speech.. On MgOx 400mg BID and KCL 20mEq daily. 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 ROM and stretching daily. 4. Hypertension. Continue with Norvasc. 5. Advanced Directives: She is a full code. Her son, Jt, is her surrogate decision maker. 6. DVT Prophylaxis: TEDs. Blood thinners contraindicated due to ICH 7. Estimated LOS: will likely need transfer to SNF 05/13/18 18:25
[2018-05-14] MEDS: Heparin VIAL(*) 5000 UNITS/ML VIAL (FIVE THOUSAND) SUBCUT SCH ×3 (05:00→22:38)
[2018-05-14 05:10] LABS: ABS Basophils 0.1 10^3/ul (0-0.2); ABS Eosinophils 0.3 10^3/ul (0-0.6); ABS Lymphocytes 2.1 10^3/ul (1.0-4.8); ABS Neutrophils 4.3 10^3/ul (1.5-7.7); ABS Nucleated RBC 0 10^3/ul; Eosinophil % 3.3 % (0-6); Hematocrit 40 % (35-47); Hemoglobin 13.6 g/dl (12.0-16.0); Lymphocyte % 27.2 % (25-47); Mean Corpuscular HGB Conc 34 g/dl (31-36); Mean Corpuscular Hemoglobin 33 pg (27-31); Mean Corpuscular Volume 97 fL (80-97); Mean Platelet Volume 7.9 um3 (7.4-10.4); Nucleated Red Blood Cells % 0; Platelet Count 354 10^3/ul (150-450); Red Blood Count 4.07 10^6/ul (4.00-5.40); Red Cell Distribution Width 13 % (10.5-15); White Blood Count 7.8 10^3/ul (3.5-10.8)
[2018-05-14 05:27] LABS: EGFR Non-African American 93.7 (>60)
[2018-05-14] MEDS: amLODIPine TAB* 5 MG PO SCH (09:16)
[2018-05-14] MEDS: Magnesium Oxide TAB* 400 MG PO SCH ×2 (09:17→20:01)
[2018-05-14] MEDS: Potassium Chlor TAB* 20 MEQ TAB.ER PO SCH (09:17)
[2018-05-14] MEDS: [UNRECOGNIZED DRUG - OTHER] PO SCH (09:18)
[2018-05-14] MEDS: Polyethylene Glycol 3350* 17 GM PACKET PO SCH (09:41)
[2018-05-14] MEDS: [UNRECOGNIZED DRUG - OTHER] PO SCH ×2 (09:41→20:01)
[2018-05-14] MEDS: Docusate CAP* 100 MG PO SCH ×2 (09:42→19:59)
[2018-05-14] MEDS: [UNRECOGNIZED DRUG - OTHER] PO SCH (09:42)
--- NOTE | 2018-05-14 19:05 | PN ---
Progress Note Date of Service: 05/14/18 Note: VERÓNICA DEGROOT was visited. Therapy notes read and reviewed. Working on transitioning her to home. She continues to work with therapy Current Medications: Active Medications Generic Name Dose Route Start Last Admin Trade Name Freq PRN Reason Stop Dose Admin Acetaminophen 650 mg 03/21/18 11:15 05/09/18 23:38 Tylenol Tab* PO 650 mg Q4H PRN Administration FEVER > 101 Al Hydrox/Mg Hydrox/Simethicone 30 ml 03/21/18 11:15 Maalox Plus* PO Q6H PRN INDIGESTION Amlodipine Besylate 2.5 mg 05/07/18 09:00 05/14/18 09:16 Norvasc Tab* PO 2.5 mg DAILY TIMA Administration Bisacodyl 10 mg 03/21/18 11:49 Dulcolax Supp* [place] DAILY PRN CONSTIPATION Calcium Carbonate 1,250 mg 03/21/18 11:52 04/01/18 09:13 Calcium Carbonate Tab* PO 1,250 mg BID PRN Administration indigestion Docusate Sodium 200 mg 03/21/18 21:00 05/14/18 09:42 Colace Cap* PO Not Given BID TIMA Heparin Sodium (Porcine) 5,000 units 03/21/18 14:00 05/14/18 14:58 Heparin Vial(*) SUBCUT 5,000 units Q8HR TIMA Administration Hydrocortisone 1 applic 05/02/18 10:44 05/02/18 19:18 Hytone Cream 1%* TOPICAL 1 applic TID PRN Administration itching Magnesium Oxide 400 mg 04/02/18 21:00 05/14/18 09:17 Magox 400 Tab* PO 400 mg BID TIMA Administration Pto:(Coromega Geraldine- 1 packet 03/22/18 09:00 05/14/18 09:42 3 1 Packet) PO Not Given QAM TIMA (Echinacea Goldseal 1 cap 03/27/18 09:00 05/14/18 09:41 1 Cap) PO Not Given BID TIMA Pto: (Advanced 2 cap 03/27/18 09:00 05/14/18 09:18 Acidophilus Cap) PO 2 cap DAILY TIMA Administration Polyethylene Glycol/Electrolytes 17 gm 03/22/18 09:00 05/14/18 09:41 Miralax* PO Not Given DAILY TIMA Potassium Chloride 20 meq 03/27/18 09:00 05/14/18 09:17 Klor Con Er Tab* PO 20 meq DAILY TIMA Administration Senna 2 tab 03/21/18 11:15 04/09/18 20:43 Senokot Tab* PO 2 tab BEDTIME PRN Administration CONSTIPATION Vital Signs: Vital Signs Temp Pulse Resp BP Pulse Ox 98.0 F 75 18 115/82 98 05/14/18 16:17 05/14/18 16:17 05/14/18 16:17 05/14/18 16:17 05/14/18 18:04 Lab Results: Laboratory Results - last 24 hr 05/14/18 05/14/18 04:52 04:52 WBC 7.8 RBC 4.07 Hgb 13.6 Hct 40 MCV 97 MCH 33 H MCHC 34 RDW 13 Plt Count 354 MPV 7.9 Neut % (Auto) 55.1 Lymph % (Auto) 27.2 [place] % (Auto) 12.5 H Eos % (Auto) 3.3 Baso % (Auto) 1.9 Absolute Neuts (auto) 4.3 Absolute Lymphs (auto) 2.1 Absolute Monos (auto) 1.0 H Absolute Eos (auto) 0.3 Absolute Basos (auto) 0.1 Absolute Nucleated RBC 0 Nucleated RBC % 0 Sodium 140 Potassium 4.2 Chloride 105 Carbon Dioxide 28 Anion Gap 7 BUN 9 Creatinine 0.64 Est GFR ( Amer) 113.4 Est GFR (Non-Af Amer) 93.7 BUN/Creatinine Ratio 14.1 Glucose 104 H Calcium 9.9 Total Bilirubin 0.50 AST 14 ALT 21 Alkaline Phosphatase 51 Total Protein 6.6 Albumin 3.9 Globulin 2.7 Albumin/Globulin Ratio 1.4 Exam: LUNGS: clear bilaterally HEART: regular rhythm ABDOMEN: Soft, +BS EXTREMITIES: contracture at left elbow NEUROLOGIC: Left CN VII palsy. Left hip flexors 2/5, DF trace, quads 3/5, hamstrings 3/5. LUE 2/5 biceps, 1-2/5 triceps Assessment/Plan: 1. Intracranial hemorrhage. Will need repeat MRI of her brain after she leaves , then follow up with Neurology. PT/OT. Left solid ankle AFO has been ordered 2. F/E/N: Regular diet and thin liquids per speech.. On MgOx 400mg BID and KCL 20mEq daily. 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 ROM and stretching daily. 4. Hypertension. Continue with Norvasc. 5. Advanced Directives: She is a full code. Her son, Jt, is her surrogate decision maker. 6. DVT Prophylaxis: TEDs. Blood thinners contraindicated due to ICH 7. Estimated LOS: may need transfer to SNF 05/14/18 19:06 05/14/18 19:06
[2018-05-15] MEDS: Heparin VIAL(*) 5000 UNITS/ML VIAL (FIVE THOUSAND) SUBCUT SCH ×3 (05:43→21:28)
[2018-05-15] MEDS: Polyethylene Glycol 3350* 17 GM PACKET PO SCH (07:48)
[2018-05-15] MEDS: [UNRECOGNIZED DRUG - OTHER] PO SCH (07:49)
[2018-05-15] MEDS: Docusate CAP* 100 MG PO SCH ×2 (07:49→20:00)
[2018-05-15] MEDS: [UNRECOGNIZED DRUG - OTHER] PO SCH ×2 (07:49→20:00)
[2018-05-15] MEDS: amLODIPine TAB* 5 MG PO SCH (08:01)
[2018-05-15] MEDS: Potassium Chlor TAB* 20 MEQ TAB.ER PO SCH (08:01)
[2018-05-15] MEDS: [UNRECOGNIZED DRUG - OTHER] PO SCH (08:01)
[2018-05-15] MEDS: Magnesium Oxide TAB* 400 MG PO SCH ×2 (08:01→20:00)
--- NOTE | 2018-05-15 18:08 | PN ---
Progress Note Date of Service: 05/15/18 Note: VERÓNICA DEGROOT was visited. Therapy notes read and reviewed. Her insurance has informed us today is her last covered day. She is doing fairly well. Current Medications: Active Medications Generic Name Dose Route Start Last Admin Trade Name Freq PRN Reason Stop Dose Admin Acetaminophen 650 mg 03/21/18 11:15 05/09/18 23:38 Tylenol Tab* PO 650 mg Q4H PRN Administration FEVER > 101 Al Hydrox/Mg Hydrox/Simethicone 30 ml 03/21/18 11:15 Maalox Plus* PO Q6H PRN INDIGESTION Amlodipine Besylate 2.5 mg 05/07/18 09:00 05/15/18 08:01 Norvasc Tab* PO 2.5 mg DAILY TIMA Administration Bisacodyl 10 mg 03/21/18 11:49 Dulcolax Supp* MS DAILY PRN CONSTIPATION Calcium Carbonate 1,250 mg 03/21/18 11:52 04/01/18 09:13 Calcium Carbonate Tab* PO 1,250 mg BID PRN Administration indigestion Docusate Sodium 200 mg 03/21/18 21:00 05/15/18 07:49 Colace Cap* PO Not Given BID TIMA Heparin Sodium (Porcine) 5,000 units 03/21/18 14:00 05/15/18 14:30 Heparin Vial(*) SUBCUT 5,000 units Q8HR TIMA Administration Hydrocortisone 1 applic 05/02/18 10:44 05/02/18 19:18 Hytone Cream 1%* TOPICAL 1 applic TID PRN Administration itching Magnesium Oxide 400 mg 04/02/18 21:00 05/15/18 08:01 Magox 400 Tab* PO 400 mg BID TIMA Administration Pto:(Coromega [place]- 1 packet 03/22/18 09:00 05/15/18 07:49 3 1 Packet) PO Not Given QAM TIMA (Echinacea Goldseal 1 cap 03/27/18 09:00 05/15/18 07:49 1 Cap) PO Not Given BID TIMA Pto: (Advanced 2 cap 03/27/18 09:00 05/15/18 08:01 Acidophilus Cap) PO 2 cap DAILY TIMA Administration Polyethylene Glycol/Electrolytes 17 gm 03/22/18 09:00 05/15/18 07:48 Miralax* PO Not Given DAILY TIMA Potassium Chloride 20 meq 03/27/18 09:00 05/15/18 08:01 Klor Con Er Tab* PO 20 meq DAILY TIMA Administration Senna 2 tab 03/21/18 11:15 04/09/18 20:43 Senokot Tab* PO 2 tab BEDTIME PRN Administration CONSTIPATION Vital Signs: Vital Signs Temp Pulse Resp BP Pulse Ox 98.5 F 75 16 112/81 100 05/15/18 05:46 05/15/18 05:46 05/15/18 05:46 05/15/18 05:46 05/15/18 05:46 Exam: LUNGS: clear bilaterally HEART: regular rhythm ABDOMEN: Soft, +BS EXTREMITIES: contracture at left elbow NEUROLOGIC: Left CN VII palsy. Left hip flexors 2/5, DF trace, quads 3/5, hamstrings 3/5. LUE 2/5 biceps, 1-2/5 triceps Assessment/Plan: 1. Intracranial hemorrhage. Will need repeat MRI of her brain after she leaves , then follow up with Neurology. PT/OT. Left solid ankle AFO has been ordered 2. F/E/N: Regular diet and thin liquids per speech.. On MgOx 400mg BID and KCL 20mEq daily. 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 ROM and stretching daily. 4. Hypertension. Continue with Norvasc. 5. Advanced Directives: She is a full code. Her son, Jt, is her surrogate decision maker. 6. DVT Prophylaxis: TEDs. Blood thinners contraindicated due to ICH 7. Disposition: after tonight, unclear. She will no longer have insurance coverage for rehab 05/15/18 18:08
[2018-05-15] MEDS: Acetaminophen TAB* 325 MG PO PRN (22:40)
[2018-05-16] MEDS: Heparin VIAL(*) 5000 UNITS/ML VIAL (FIVE THOUSAND) SUBCUT SCH ×3 (06:24→21:41)
[2018-05-16] MEDS: amLODIPine TAB* 5 MG PO SCH (09:50)
[2018-05-16] MEDS: [UNRECOGNIZED DRUG - OTHER] PO SCH (09:50)
[2018-05-16] MEDS: Magnesium Oxide TAB* 400 MG PO SCH ×2 (09:50→20:25)
[2018-05-16] MEDS: Potassium Chlor TAB* 20 MEQ TAB.ER PO SCH (09:51)
[2018-05-16] MEDS: Docusate CAP* 100 MG PO SCH (09:51)
[2018-05-16] MEDS: [UNRECOGNIZED DRUG - OTHER] PO SCH (09:51)
[2018-05-16] MEDS: [UNRECOGNIZED DRUG - OTHER] PO SCH ×2 (09:52→20:26)
[2018-05-16] MEDS: Polyethylene Glycol 3350* 17 GM PACKET PO SCH (09:52)
--- NOTE | 2018-05-16 12:46 | PN ---
Progress Note Date of Service: 05/16/18 Note: VERÓNICA DEGROOT was visited. Nursing and therapy notes read and reviewed. No chest pain, shortness of breath or abdominal pain. She is annoyed her son will not take her home. Current Medications: Active Medications Generic Name Dose Route Start Last Admin Trade Name Freq PRN Reason Stop Dose Admin Acetaminophen 650 mg 03/21/18 11:15 05/15/18 22:40 Tylenol Tab* PO 650 mg Q4H PRN Administration FEVER > 101 Al Hydrox/Mg Hydrox/Simethicone 30 ml 03/21/18 11:15 Maalox Plus* PO Q6H PRN INDIGESTION Amlodipine Besylate 2.5 mg 05/07/18 09:00 05/16/18 09:50 Norvasc Tab* PO 2.5 mg DAILY TIMA Administration Bisacodyl 10 mg 03/21/18 11:49 Dulcolax Supp* SC DAILY PRN CONSTIPATION Calcium Carbonate 1,250 mg 03/21/18 11:52 04/01/18 09:13 Calcium Carbonate Tab* PO 1,250 mg BID PRN Administration indigestion Docusate Sodium 200 mg 03/21/18 21:00 05/16/18 09:51 Colace Cap* PO Not Given BID TIMA Heparin Sodium (Porcine) 5,000 units 03/21/18 14:00 05/16/18 06:24 Heparin Vial(*) SUBCUT 5,000 units Q8HR TIMA Administration Hydrocortisone 1 applic 05/02/18 10:44 05/02/18 19:18 Hytone Cream 1%* TOPICAL 1 applic TID PRN Administration itching Magnesium Oxide 400 mg 04/02/18 21:00 05/16/18 09:50 Magox 400 Tab* PO 400 mg BID TIMA Administration Pto:(Coromega [place]- 1 packet 03/22/18 09:00 05/16/18 09:51 3 1 Packet) PO Not Given QAM TIMA (Echinacea Goldseal 1 cap 03/27/18 09:00 05/16/18 09:52 1 Cap) PO Not Given BID TIMA Pto: (Advanced 2 cap 03/27/18 09:00 05/16/18 09:50 Acidophilus Cap) PO 2 cap DAILY TIMA Administration Polyethylene Glycol/Electrolytes 17 gm 03/22/18 09:00 05/16/18 09:52 Miralax* PO Not Given DAILY TIMA Potassium Chloride 20 meq 03/27/18 09:00 05/16/18 09:51 Klor Con Er Tab* PO 20 meq DAILY TIMA Administration Senna 2 tab 03/21/18 11:15 04/09/18 20:43 Senokot Tab* PO 2 tab BEDTIME PRN Administration CONSTIPATION Vital Signs: Vital Signs Temp Pulse Resp BP Pulse Ox 98.3 F 68 16 117/77 96 05/16/18 05:52 05/16/18 05:52 05/16/18 05:52 05/16/18 05:52 05/16/18 05:52 Exam: GEN: no acute distress. alert and appropriate LUNGS: clear to auscultation bilaterally HEART: regular rate and rhythm ABDOMEN: Soft, +bowel sounds, non-tender, non-distended EXTREMITIES: contracture at left elbow. No edema. Mild tone in left biceps, wrist and finger flexors. NEUROLOGIC: Left CN VII palsy. Left hip flexors 2/5, DF trace, quads 3/5, hamstrings 3/5. 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 Intracranial hemorrhage. Will need repeat MRI of her brain after she leaves , then follow up with Neurology. Left solid ankle AFO. 2. F/E/N: Regular diet and thin liquids.. On MgOx 400mg BID and KCL 20mEq daily. 3. 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 ROM and stretching daily. 4. Hypertension. Continue with Norvasc. 5. Advanced Directives: She is a full code. Her son, Jt, is her surrogate decision maker. 6. DVT Prophylaxis: TEDs. Blood thinners contraindicated due to ICH 7. Disposition: Insurance has cut her off. She will be transferred to retirement care in [facility] as her insurance has not approved for her to go to another facility for retirement care yet. 05/16/18 12:46
[2018-05-16] MEDS ORDERED: Senna TAB PO PRN (12:56)
[2018-05-16] MEDS ORDERED: Docusate CAP* 100 MG PO PRN (12:56)
[2018-05-16] MEDS: Acetaminophen TAB* 325 MG PO PRN (21:41)
--- NOTE | 2018-05-17 03:22 | DS ---
CC: Dr. Silva; Dr. Villanueva REHABILITATION DISCHARGE: DATE OF ADMISSION: 03/21/18 DATE OF DISCHARGE FROM ACUTE REHABILITATION PROGRAM: 05/16/18 DATE OF DISCHARGE FROM RU UNIT: 05/17/18 REASON FOR ADMISSION: Intracranial hemorrhage. PRIMARY CARE PROVIDER: Dr. Silva. NEUROLOGIST: Dr. Villanueva (has not seen yet, but will f/u) DISCHARGE DIAGNOSES: 1. Intracranial hemorrhage. 2. Left spastic hemiplegia. 3. Hypertension. 4. History of left elbow fracture with contracture. 5. Dysphagia. 6. Dysarthria. 7. Impaired mobility. 8. Impaired self-care. HISTORY OF PRESENT ILLNESS: For full details of her acute hospitalization leading up to her admission, please see the note dictated by myself on 03/21/18. REHABILITATION COURSE: Briefly, she woke up on 03/11/18 with spasm in her left leg and difficulty using her left arm. She was found to have a right intraparenchymal hemorrhage in the frontoparietal area and also some left parietal subarachnoid hemorrhage that was small and some small volume blood in the interventricular system. She was transferred to [facility]. She had a DSA, which showed no evidence of vascular malformation. She has a dominant right transverse sinus and type 3 arch with tortuous vessels. Echo on 03/18/18 was unremarkable and her ejection fraction was 71%. She was in normal sinus rhythm on telemetry. She was treated for her hypertension as well as she was noted to have hypomagnesemia, hypokalemia, and hyponatremia. When she came to our unit, she had mild to moderate dysphagia and was flaccid on the left side with impaired sensation. During her time on the [facility], she has had some return to her left arm and left leg with the development of spasticity, but still with impaired sensation. She has 3/5 manager nuclear strength, 1-2/5 triceps, 2-3/5 biceps, 3/5 hamstrings, 3/5 quadriceps, 2/5 hip flexion, and trace dorsiflexion, 3+/5 plantar flexion. She does have left cranial nerve VII palsy, which has improved during her stay. She has been followed by Speech Therapy and at this point, she is able to tolerate regular solids and thin liquids. Her speech is normal. She was treated by physical therapy and at the time of discharge, varies between supervision to independent for bed mobility. She requires supervision for transfers and ambulating using a dali-walker. She needs contact guard assistance, however, to go down 5 stairs. With occupational therapy, she has continued to require minimal amount of assistance for dressing especially lower body and donning the left AFO. She requires contact guard assistance for bathing and toileting. As we got close to discharge and wanted to set up training with her son, he did not feel that she was ready to come home. A MIKY screen was completed but she denied admission to subacute rehabilitation as they felt that she was at an appropriate level for home. She was cut off by her [employer] insurance for acute rehabilitation as of 05/16/18. Initially she was going to be transferred to retirement care at [facility] pending placement for retirement care at another facility, but in the late afternoon on [place] approved retirement care at [facility]. [facility] agreed to take her on the morning of 05/17/18. Therefore, she spent 1 night of retirement care on the rehabilitation unit floor after being discharged from the program. DISCHARGE CONDITION: Fair. DISCHARGE DISPOSITION: To [facility] on 05/16/18. To [facility] for retirement care on 05/17/18. DISCHARGE MEDICATIONS: 1. Acetaminophen 650 mg q.4 hours p.r.n. which she uses occasionally for headache. 2. Advanced Acidophilus 2 capsules daily. 3. Amlodipine 2.5 mg daily. 4. Calcium carbonate 1250 mg b.i.d. p.r.n. indigestion. 5. Coromega-3 one packet q.a.m. 6. Colace 200 mg b.i.d. p.r.n. constipation. 7. Echinacea goldenseal 1 capsule b.i.d. 8. 1% hydrocortisone cream topically 3 times a day p.r.n. itching. 9. Magnesium oxide 400 mg b.i.d. 10. Potassium chloride 20 mEq daily. 11. Senna 2 tablets q.h.s. p.r.n. FOLLOWUP: 1. Follow up with her primary care provider, Dr. Silav, in 1 to 2 weeks. She needs a followup MRI of her brain to determine if there is any underlying pathology after resolution of the intracranial hemorrhage. 2. Dr. Villanueva has agreed to see her for followup locally. He will see her within the next few weeks. [id number]/[facility] #: [id number] [facility] HOSPITALDevin
[2018-05-17] MEDS: Heparin VIAL(*) 5000 UNITS/ML VIAL (FIVE THOUSAND) SUBCUT SCH (05:30)
[2018-05-17 05:32] VITALS: BP 124/78
[2018-05-17] MEDS: [UNRECOGNIZED DRUG - OTHER] PO SCH (09:14)
[2018-05-17] MEDS: amLODIPine TAB* 5 MG PO SCH (09:17)
[2018-05-17] MEDS: Potassium Chlor TAB* 20 MEQ TAB.ER PO SCH (09:19)
[2018-05-17] MEDS: Magnesium Oxide TAB* 400 MG PO SCH (09:19)
[2018-05-17] MEDS: [UNRECOGNIZED DRUG - OTHER] PO SCH (09:20)
[2018-05-17] MEDS: [UNRECOGNIZED DRUG - OTHER] PO SCH (09:20)
--- NOTE | 2018-05-17 10:06 | PN ---
Progress Note Date of Service: 05/17/18 Note: VERÓNICA DEGROOT was visited. Nursing and social work notes read and reviewed. [place] [facility] [place] received a late authorization from [facility] for [facility], who accepted her for Saturday morning chcf care. No other new issues. Current Medications: Active Medications Generic Name Dose Route Start Last Admin Trade Name Freq PRN Reason Stop Dose Admin Acetaminophen 650 mg 03/21/18 11:15 05/16/18 21:41 Tylenol Tab* PO 650 mg Q4H PRN Administration FEVER > 101 Amlodipine Besylate 2.5 mg 05/07/18 09:00 05/17/18 09:17 Norvasc Tab* PO 2.5 mg DAILY TIMA Administration Calcium Carbonate 1,250 mg 03/21/18 11:52 04/01/18 09:13 Calcium Carbonate Tab* PO 1,250 mg BID PRN Administration indigestion Docusate Sodium 200 mg 05/16/18 12:56 Colace Cap* PO BID PRN CONSTIPATION Heparin Sodium (Porcine) 5,000 units 03/21/18 14:00 05/17/18 05:30 Heparin Vial(*) SUBCUT 5,000 units Q8HR TIMA Administration Hydrocortisone 1 applic 05/02/18 10:44 05/02/18 19:18 Hytone Cream 1%* TOPICAL 1 applic TID PRN Administration itching Magnesium Oxide 400 mg 04/02/18 21:00 05/17/18 09:19 Magox 400 Tab* PO 400 mg BID TIMA Administration Pto:(Coromega [place]- 1 packet 03/22/18 09:00 05/17/18 09:20 3 1 Packet) PO Not Given QAM TIMA (Echinacea Goldseal 1 cap 03/27/18 09:00 05/17/18 09:20 1 Cap) PO Not Given BID TIMA Pto: (Advanced 2 cap 03/27/18 09:00 05/17/18 09:14 Acidophilus Cap) PO 2 cap DAILY TIMA Administration Potassium Chloride 20 meq 03/27/18 09:00 05/17/18 09:19 Klor Con Er Tab* PO 20 meq DAILY TIMA Administration Senna 2 tab 05/16/18 12:56 Senokot Tab* PO BEDTIME PRN CONSTIPATION Vital Signs: Vital Signs Temp Pulse Resp BP Pulse Ox 97.8 F 62 16 124/78 100 05/17/18 05:31 05/17/18 05:31 05/17/18 05:32 05/17/18 05:31 05/17/18 05:31 Exam: GEN: no acute distress. alert and appropriate LUNGS: clear to auscultation bilaterally HEART: regular rate and rhythm ABDOMEN: Soft, +bowel sounds, non-tender, non-distended EXTREMITIES: contracture at left elbow. No edema. Mild tone in left biceps, wrist and finger flexors. NEUROLOGIC: Left CN VII palsy. Left hip flexors 2/5, DF trace, quads 3/5, hamstrings 3/5. 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 Intracranial hemorrhage. Will need repeat MRI of her brain after she leaves , then follow up with Neurology. Dr. Villanueva agreed to see her in the next few weeks. Left solid ankle AFO. 2. F/E/N: Regular diet and thin liquids.. On MgOx 400mg BID and KCL 20mEq daily. 3. 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 ROM and stretching daily. 4. Hypertension. Continue with Norvasc. 5. Advanced Directives: She is a full code. Her son, Jt, is her surrogate decision maker. 6. DVT Prophylaxis: TEDs. Blood thinners contraindicated due to ICH 7. Disposition: Insurance cut her off on 05/16/18. She is transferring to [facility] this morning for chcf care. 05/17/18 10:05
== END 2018-05-17 11:30 | DRG 58 ==
LOC: PMRU 11:19
PROVIDERS: ADMIT Physical Medicine & Rehabilitation; ATTEND Physical Medicine & Rehabilitation
PROC: F07Z5ZZ Bed Mobility Treatment (ICD-10-PCS; principal; 2018-03-21)
PROC: F07Z9ZZ Gait Training/Functional Ambulation Treatment (ICD-10-PCS; 2018-03-21)
PROC: F07Z8ZZ Transfer Training Treatment (ICD-10-PCS; 2018-03-21)
PROC: F07Z4ZZ Wheelchair Mobility Treatment (ICD-10-PCS; 2018-03-21)
PROC: F08Z0ZZ Bathing/Showering Techniques Treatment (ICD-10-PCS; 2018-03-21)
PROC: F08Z1ZZ Dressing Techniques Treatment (ICD-10-PCS; 2018-03-21)
PROC: F08Z3ZZ Feeding/Eating Treatment (ICD-10-PCS; 2018-03-21)
PROC: F06Z6ZZ Communicative/Cognitive Integration Skills Treatment (ICD-10-PCS; 2018-03-21)
DX: I69.254 Hemiplegia and hemiparesis following other nontraumatic intracranial hemorrhage affecting left non-dominant side (principal); I69.191 Dysphagia following nontraumatic intracerebral hemorrhage; R13.10 Dysphagia, unspecified; I69.122 Dysarthria following nontraumatic intracerebral hemorrhage; I69.219 Unspecified symptoms and signs involving cognitive functions following other nontraumatic intracranial hemorrhage; I10 Essential (primary) hypertension; F17.210 Nicotine dependence, cigarettes, uncomplicated; M24.522 Contracture, left elbow; W05.0XXA Fall from non-moving wheelchair, initial encounter; Y92.239 Unspecified place in hospital as the place of occurrence of the external cause; E83.42 Hypomagnesemia; E87.6 Hypokalemia; Z79.1 Long term (current) use of non-steroidal anti-inflammatories (NSAID); Z79.899 Other long term (current) drug therapy
CPT/HCPCS: 36415; 80048; 80053; 83735; 85025; 85060; A9270-GY; G0515-GO; J1644; J3475

== ENCOUNTER 2018-11-18 12:00 | Emergency (ER) | payer OTHER, MEDICAID ==
[2018-11-18 12:12] VITALS: BP 129/92
--- NOTE | 2018-11-18 12:39 | ED ---
Upper Extremity Pain - HPI Summary HPI Summary: 63 yr old female with the complaint of left shoulder pain. Onset of pain was last evening when she fell out of her wheelchair. She has chronic left side weakness post CVA. She was moving around in the wheel chair and fell over onto her left shoulder. Pain in left shoulder, 5/10, worse with movement. No other complaints. Denies other injuries. - History of Current Complaint Chief Complaint: UCUpperExtremity Stated Complaint: L SHOULDER COMPLAINT Time Seen by Provider: 11/18/18 12:26 - Allergies/Home Medications Allergies/Adverse Reactions: Allergies Allergy/AdvReac Type Severity Reaction Status Date / Time No Known Allergies Allergy Verified 11/18/18 12:12 PMH/Surg Hx/FS Hx/Imm Hx Previously Healthy: No Endocrine/Hematology History: Denies: Hx Diabetes Cardiovascular History: Reports: Hx Hypertension, Other Cardiovascular Problems/ Disorders - pt states that she believes she has a heart rhythmia. Denies: Hx Pacemaker/ICD History: Denies: Hx Renal Disease Musculoskeletal History: Reports: Other Musculoskeletal History - CURRENT LEFT ELBOW FX Sensory History: Reports: Hx Contacts or Glasses Denies: Hx Hearing Aid Opthamlomology History: Reports: Hx Contacts or Glasses Psychiatric History: Denies: Hx Panic Disorder - Surgical History Surgery Procedure, Year, and Place: APPENDECTOMY 2011 [facility],ELBOW FX Hx Anesthesia Reactions: No Infectious Disease History: No Infectious Disease History: Denies: Hx Shingles, Hx Tuberculosis, Traveled Outside the [place] in Last 30 Days - Family History Known Family History: Positive: None Family History: FHx: [place] - Social History Occupation: Disabled Alcohol Use: None Alcohol Amount: 2-3/WEEK Substance Use Type: Reports: Marijuana Substance Use Comment - Amount & Last Used: OCC MARIJUANA USE Smoking Status (MU): Former Smoker Have You Smoked in the Last Year: No Review of Systems Constitutional: Negative Negative: Photophobia, Blurred Vision ENT: Negative Positive: Other - left shoulder pain post fall. All Other Systems Reviewed And Are Negative: Yes Physical Exam Triage Information Reviewed: Yes Vital Signs On Initial Exam: Initial Vitals Temp Pulse Resp BP Pulse Ox 97.8 F 80 16 129/92 99 11/18/18 12:09 11/18/18 12:09 11/18/18 12:09 11/18/18 12:11/18/18 12:09 Vital Signs Reviewed: Yes Appearance: Positive: Well-Appearing, No Pain Distress Skin: Positive: Warm, Skin Color Reflects Adequate Perfusion Head/Face: Positive: Normal Head/Face Inspection Eyes: Positive: EOMI ENT: Positive: Normal ENT inspection Neck: Positive: Supple, Nontender Respiratory/Lung Sounds: Positive: Clear to Auscultation, Breath Sounds Present Cardiovascular: Positive: RRR. Negative: Murmur Abdomen Description: Positive: Nontender Musculoskeletal: Positive: Other - left shoulder tender to palpate, no crepitance, no deformity, no obvious bruise, cuts or swelling. tender over left ac joint Neurological: Positive: Alert, Oriented to Person Place, Time, CN Intact II- III. Negative: Sensory/Motor Intact - she has left side weakness most notable left upper extremity with left hand weakness, and per patient no different than usual since her stroke. Diagnostics - Vital Signs Vital Signs Temp Pulse Resp BP Pulse Ox 11/18/18 12:09 97.8 F 80 16 129/92 99 - Laboratory Lab Statement: Any lab studies that have been ordered have been reviewed, and results considered in the medical decision making process. - Radiology left shoulder Radiology Interpretation Completed By: Radiologist - left distal clavicle fx displaced Course/Dx - Course Course Of Treatment: Sling applied by nurses. Distal clavicle fx FU with Dr chambers - Diagnoses Provider Diagnoses: Displaced fracture of clavicle Discharge - Sign-Out/Discharge Documenting (check all that apply): Patient Departure All imaging exams completed and their final reports reviewed: Yes - Discharge Plan Condition: Good Disposition: HOME Patient Education Materials: Clavicle Fracture (ED) Referrals: Fozia Silva MD [Primary Care Provider] - Perlita Chambers MD [Medical Doctor] - 1 Day - Billing Disposition and Condition Condition: GOOD Disposition: Home
== END 2018-11-18 13:15 | disposition home or self-care (01) ==
LOC: UCEAST 12:00
DX: S42.032A Displaced fracture of lateral end of left clavicle, initial encounter for closed fracture (principal); W05.0XXA Fall from non-moving wheelchair, initial encounter; Y92.009 Unspecified place in unspecified non-institutional (private) residence as the place of occurrence of the external cause; Z87.891 Personal history of nicotine dependence
CPT/HCPCS: 99212; G0463

== ENCOUNTER 2019-02-18 15:17 | Emergency (ER) | payer MEDICAID, OTHER ==
[2019-02-18] MEDS ORDERED: Lorazepam PYXIS KEY ONE (15:40)
[2019-02-18] MEDS ORDERED: LORazepam INJ* 2 MG/ML 1 ML VIAL ONE ×2 (15:41)
[2019-02-18] MEDS ORDERED: NS 0.9% 1000 ML** 1,000 ML IV ONE ×2 (15:42)
[2019-02-18] MEDS ORDERED: levETIRAcetam 1000MG IVPREMIX* 1,000 MG/100 ML BAG IVPB ONE (15:44)
[2019-02-18] MEDS ORDERED: LORazepam INJ* 2 MG/ML 1 ML VIAL IV PUSH ONE ×2 (15:45→16:18)
[2019-02-18] MEDS ORDERED: Lorazepam PYXIS KEY PRN ×2 (15:45→16:18)
--- NOTE | 2019-02-18 16:06 | ED ---
Neurological HPI - HPI Summary HPI Summary: Patient is a 63 y/o F w/ Hx of right hemorrhagic stroke presenting to ED via EMS with complaints of two episodes of seizure like activity. 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 Son, who is present in the room, witnessed the episode. He notes that the patient appeared to "lose awareness". However, the patient states that she recalls the episode. EMS was called. Son reports that the patient has been in and out of this seizure-like activity, reporting two episodes in total. PMHx of right hemorrhagic stroke a year ago, on March 11, 2018. Patient's entire left side is paralyzed. Son notes that the patient has exhibited twitching behavior previously, but it has not been as severe. When doing physical exam, patient begins to gaze to her left and is unable to finger track. Patient started to shake and the patient exhibited decreased responsiveness. Patient's son notes that this is similar activity to what she displayed earlier and states that at baseline the patient is "very talkative". Per triage, "Finger stick glucose for EMS was 134. Patient vomited x1 as ambulance was pulling in". On triage, pain is denied, nothing is noted to aggravate or alleviate Sx. Home medications and allergies are reviewed. - History of Current Complaint Chief Complaint: EDGeneral Stated Complaint: SEIZURES PER EMS Time Seen by Provider: 02/18/19 15:28 Hx Obtained From: Patient, Family/Utility Sales Representative - son Onset/Duration: Still Present Timing: Intermittent Episodes Lasting: Current Severity: None - pain denied Pain Intensity: 0 Pain Scale Used: 0-10 Numeric Character: Other: - seizure like-activity, vomiting Syncope Context: Witnessed, Activity - painting Frequency: Episodes x___ - 2 previous, 1 onset in room Syncope Location: Partial Extremities, Eye Deviation Aggravating: Nothing Alleviating: Nothing Associated Signs and Symptoms: Positive: Seizure, Nausea/Vomiting - Allergy/Home Medications Allergies/Adverse Reactions: Allergies Allergy/AdvReac Type Severity Reaction Status Date / Time No Known Allergies Allergy Verified 11/18/18 12:12 Home Medications: Home Medications NK [No Home Medications Reported] 02/18/19 [History Confirmed 02/18/19] PMH/Surg Hx/FS Hx/Imm Hx Endocrine/Hematology History: Denies: Hx Diabetes Cardiovascular History: Reports: Hx Hypertension, Other Cardiovascular Problems/ Disorders - pt states that she believes she has a heart rhythmia. Denies: Hx Pacemaker/ICD History: Denies: Hx Renal Disease Musculoskeletal History: Reports: Other Musculoskeletal History - CURRENT LEFT ELBOW FX Sensory History: Reports: Hx Contacts or Glasses Denies: Hx Hearing Aid Opthamlomology History: Reports: Hx Contacts or Glasses Psychiatric History: Denies: Hx Panic Disorder - Surgical History Surgery Procedure, Year, and Place: APPENDECTOMY 2011 [facility],ELBOW FX Hx Anesthesia Reactions: No Infectious Disease History: No Infectious Disease History: Denies: Hx Shingles, Hx Tuberculosis, Traveled Outside the [place] in Last 30 Days - Family History Known Family History: Positive: Other - FHx: [place] Family History: FHx: [place] - Social History Alcohol Use: Occasionally Alcohol Amount: 2-3/WEEK Substance Use Type: Reports: Marijuana Substance Use Comment - Amount & Last Used: OCC MARIJUANA USE Smoking Status (MU): Former Smoker Have You Smoked in the Last Year: No Review of Systems Positive: Vomiting, Nausea Neurological: Other - POSITIVE - SEIZURE LIKE ACITIVTY: TWITCHING, GAZING TO LEFT, DECREASED RESPONSIVENESS All Other Systems Reviewed And Are Negative: Yes - Comments Additional Review of Systems Comments: ROS completed before patient began to exhibit seizure like activity. Physical Exam - Summary Physical Exam Summary: GENERAL: Patient is a well-developed and nourished female who is lying comfortable in the stretcher. Patient is not in any acute respiratory distress. HEAD AND FACE: Normocephalic EYES: PERRLA, EOMI x 2. EARS: Hearing grossly intact. MOUTH: Oropharynx within normal limits. NECK: Supple, trachea is midline, no adenopathy, no JVD, no carotid bruit. CHEST: Symmetric, no tenderness at palpation LUNGS: Clear to auscultation bilaterally. No wheezing or crackles. CVS: Regular rate and rhythm, S1 and S2 present, no murmurs or gallops appreciated. ABDOMEN: Soft, non-tender. Bowel sounds are normal. No abnormal abdominal pulsations. EXTREMITIES: Full ROM in all major joints, no edema, no cyanosis or clubbing. NEURO: Paralyzed on the left side, patient is gazing towards the left. Patient had seizure-like activity upon evaluation. GCS 13. SKIN: Dry and warm Triage Information Reviewed: Yes Vital Signs On Initial Exam: Initial Vitals Temp Pulse Resp BP Pulse Ox 98.5 F 77 18 143/103 90 02/18/19 15:18 02/18/19 15:18 02/18/19 15:18 02/18/19 15:18 02/18/19 15:18 Vital Signs Reviewed: Yes Diagnostics - Vital Signs Vital Signs Temp Pulse Resp BP Pulse Ox 02/18/19 15:18 98.5 F 77 18 143/103 90 - Laboratory Lab Statement: Any lab studies that have been ordered have been reviewed, and results considered in the medical decision making process. - Radiology chest x-ray Radiology Interpretation Completed By: Radiologist Summary of Radiographic Findings: CXR IMPRESSION: #. Stigmata of obstructive lung disease. Relative hypoventilated exam for this patient. No. additional acute pulmonary or cardiac process evident. THIS REPORT WAS REVIEWED BY DR. LONGORIA. - CT brain ct CT Interpretation Completed By: Radiologist Summary of CT Findings: IMPRESSION: #. New 1.3 cm maximum dimension region of hyperdensity within the region of. encephalomalacia related to a previous intra -axial hemorrhage as documented on the prior. exams. This finding is most suspicious for dystrophic calcification however new punctate. hemorrhage is not excluded as the finding is new compared with the prior exam. Correlate. with clinical assessment and consider follow-up CT in approximate one week time to assess. for stability to indicate dystrophic calcification or resolution or progression to. indicate hemorrhage. THIS REPORT WAS REVIEWED BY DR. LONGORIA - EKG 1548 Cardiac Rate: NL - rate of 75 BPM EKG Rhythm: Sinus Rhythm Summary of EKG Findings: EKG showed NSR with rate of 75 BPM, q waves in anterior leads, normal axis. Re-Evaluation - Re-Evaluation First Eval Re-Evaluation Time: 16:31 Comment: Patient's son would like patient to be transferred to [facility] as the patient is known at this facility. Second Eval Re-Evaluation Time: 16:49 Comment: Initial report given to transfer center. Course/Dx - Course Course Of Treatment: Patient is a 63 y/o F w/ Hx of right hemorrhagic stroke presenting to ED via EMS with complaints of two episodes of seizure like activity. 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 Son, who is present in the room, witnessed the episode. He notes that the patient appeared to "lose awareness". However, the patient states that she recalls the episode. EMS was called. Son reports that the patient has been in and out of this seizure-like activity, reporting two episodes in total. PMHx of right hemorrhagic stroke a year ago, on March 11, 2018. Patient's entire left side is paralyzed. Son notes that the patient has exhibited twitching behavior previously, but it has not been as severe. When doing physical exam, patient begins to gaze to her left and is unable to finger track. Patient started to shake and the patient exhibited decreased responsiveness. Patient's son notes that this is similar activity to what she displayed earlier and states that at baseline the patient is "very talkative". On physical exam, patient is noted to be paralyzed on the left side, patient is gazing towards the left. Patient had seizure-like activity upon evaluation. GCS 13. EKG showed NSR with rate of 75 BPM, q waves in anterior leads, normal axis. CXR IMPRESSION: #. Stigmata of obstructive lung disease. Relative hypoventilated exam for this patient. No. additional acute pulmonary or cardiac process evident. During ED course, patient received fluids, Ativan 1 mg x2 IV PUSH. Patient's case was discussed with Dr. Barnes's DESKTOP OPERATOR , Silver Mirza. Patient to receive brain CT, keppra, and EEG. BRAIN CT IMPRESSION: #. New 1.3 cm maximum dimension region of hyperdensity within the region of. encephalomalacia related to a previous intra-axial hemorrhage as documented on the prior. exams. This finding is most suspicious for dystrophic calcification however new punctate. hemorrhage is not excluded as the finding is new compared with the prior exam. Correlate. with clinical assessment and consider follow-up CT in approximate one week time to assess. for stability to indicate dystrophic calcification or resolution or progression to. indicate hemorrhage. 1631 - Dr. Barnes states that patient should be transferred as she continues to experience seizures in ED and needs continous EEG monitoring, which is not available. Patient's son would like patient to be transferred to [facility] as the patient is known at this facility. Patient's case was discussed with Dr. Painter from [facility]. 1726 - Dr. Painter accepts that patient for ED to ED transfer. - Diagnoses Provider Diagnoses: Seizures - Physician Notifications Discussed Care Of Patient With: Torres Barnes Time Discussed With Above Provider: 15:41 Instructed by Provider To: Other - 1541 - Patient's case was discussed with Dr. Barnes's DESKTOP OPERATOR, Silver Mirza. Patient to receive brain CT, keppra, and EEG. 1552 - Dr. Barnes arrived in ED to evaluate patient. 1631 - Dr. Barnes states that patient should be transferred as she continues to experience seizures in ED and needs continous EEG monitoring, which is not available.1726 - Dr. Painter accepts that patient for ED to ED transfer. Discharge - Sign-Out/Discharge Documenting (check all that apply): Patient Departure - transfer - Discharge Plan Condition: Good Disposition: TRANS HIGHER LVL OF CARE FAC Referrals: Fozia Silva MD [Primary Care Provider] - - Billing Disposition and Condition Condition: GOOD Disposition: Trans Higher Lvl of Care Fac - Attestation Statements Document Initiated by Scribe: Yes Documenting Scribe: LAURA FRIEND Provider For Whom Scribe is Documenting (Include Credential): AMMY LONGORIA MD Scribe Attestation: LAURA Ferguson, scribed for AMMY LONGORIA MD on 02/18/19 at 1745. Scribe Documentation Reviewed: Yes Provider Attestation: The documentation as recorded by the LAURA morales accurately reflects the service I personally performed and the decisions made by me, AMMY LONGORIA MD Status of Scribe Document: Viewed
[2019-02-18 18:26] VITALS: BP 121/84
--- NOTE | 2019-02-18 18:33 | CONS ---
CC: Dr. Fozia Silva; Dr. Abilio Villanueva * CONSULTATION REPORT: DATE OF CONSULT: 02/18/19 - EMERGENCY DEPT CURRENT LOCATION: ED, bed 15. PRIMARY CARE PROVIDER: Dr. Fozia Silva. TREATING NEUROLOGIST: Dr. Abilio Villanueva. REASON FOR CONSULT: Seizure-like activity. HISTORY OF PRESENT ILLNESS: Ms. Nicole is a 63-year-old female with a history of hypertension, a history of intracranial hemorrhage, previously admitted in February 2018. At that time, she presented to the emergency room with a large intracranial hemorrhage on the right side with residual left-sided hemiplegia. The patient was eventually transferred to [place], where a conventional angiogram was done and it showed no vascular abnormalities. She also had an MRI in June 2018 that showed some residual hematoma and gliosis, but no vascular abnormalities. She follows with Dr. Abilio Villanueva in outpatient neurology clinic. She was last seen on 10/13/18. At that time, she noted some issues with her hips and noted some pain in her left leg, a burning sensation. At baseline, she has fairly dense hemiparesis on the left side. She has limited to no movement of her left upper extremity. She has an AFO and brace in place on her left lower extremity, is able to ambulate with a walker, but has minimal to no significant movement of her left lower extremity. Her son who is at the bedside with her notes that she is normally very interactive. 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 She is normally cognitively intact. This morning, at around noon, the patient reported having a mild episode of "feeling weird." Subsequently, she developed an episode where she became unresponsive. The son states that he was upstairs when he heard her calling his name. He eventually came down and she stated that she did not feel well. Subsequently, she developed some head turning to the left as well as some eye turning to the left. He stated that she became rigid and that her chin and head were shaking. There was no reported bladder or bowel incontinence. No reported tongue biting. She improved, but EMS was called. Upon arrival, EMS noted another episode, which lasted for several minutes and then resolved. She was brought to the ER where she had yet another episode, making a total of 4 discrete episodes within a few hours. In the ER, she was given Ativan. We were contacted and instructed the ER doctor to give Keppra load 1000 mg and saw her in the ER immediately. Upon arrival, she continued to have some stereotypical movements and some eye bobbing movements. She was, however, awake and answering questions appropriately. She was alert and oriented x3. She had no movement of her left side at that time, but her son states that this is basically her baseline. We had a stat EEG done, which showed significant epileptiform activity, generalized in nature. Despite the fact that the patient was still somewhat awake and able to answer questions, another milligram of Ativan was given. The patient became very somnolent and went to sleep, and subsequent EEG showed break in the seizure activity and profound slowing. She is currently very somnolent, arouses to loud stimuli, but is snoring. PAST MEDICAL HISTORY: As above. Her past medical history also includes tobacco use. PAST SURGICAL HISTORY: Elbow surgery in the past. CURRENT MEDICATIONS: Per review of her recent outpatient visit with Dr. Villanueva was acidophilus. It is all that she was listed as taking. ALLERGIES: No known drug allergies. FAMILY HISTORY: Unknown at this time. Per review of prior records, no family history of stroke, seizures, or clotting disorders. The son states that she has no family history of any seizure-like activity. He also notes that she has had no history of seizures in the past, no head trauma, no meningitis as a child , no febrile seizures, no issues that he is aware of. SOCIAL HISTORY: She was a smoker for more than 30 years. A year ago, was smoking marijuana occasionally, although I am unclear now whether she continues to smoke. No alcohol use. REVIEW OF SYSTEMS: Review of systems in 14-organ systems was difficult to obtain because of her mental status. PHYSICAL EXAM: Vital Signs: Temp of 98.5, blood pressure 143/103, pulse rate of 77, respiratory rate of 18, O2 sat of 90%. In general, she is a well- nourished; although thin female, in no acute distress, lying quietly in the bed , snoring. Prior to her receiving the Ativan, she was awake. Although somnolent , she was answering questions appropriately. She was able to tell me the year, the month, the day, the location, although she was slow to answer. Her speech seemed to be slightly dysarthric and slow. She had some roving eye movements and bobbing eye movements initially, which improved after the Ativan and after her seizure broke. She had no generalized tonic-clonic activity or other stereotypical movements. She has dense left hemiparesis at baseline. She has a brace on her left lower extremity. The examination was very difficult because she was in and out, especially after receiving benzodiazepine, but she was able to move her right side to command. There did not appear to be any drift. She states that she could feel on her right side, more difficult to assess on her left, although she did seem to feel pain on her left side. DTRs were 2+ at the patella bilaterally, 2+ at the biceps bilaterally, Babinski's was equivocal. She had increased tone in the left upper and lower extremity. I could not get her to perform rapid alternating movements, [id number], heel -to-smith on the right. Gait could not be tested. DIAGNOSTIC STUDIES: She had a CT scan of the head, which we reviewed and while it showed no acute bleeds, there was a new 1.3 cm maximum dimension region of hyperdensity within the region of the encephalomalacia related to previous intraaxial hemorrhage documented on prior exams. The finding is most suspicious for dystrophic calcification; however, a new punctate hemorrhage is not excluded as the finding is new compared with the prior exam. CT in 1 week was recommended to reassess for stability. She had an EEG, which showed generalized epileptiform activity. ASSESSMENT AND PLAN: Ms. Nicole is a 63-year-old female with a history of right- sided hemorrhagic stroke with residual left-sided hemiparesis who came to the hospital with 4 different episodes today of seizure-like activity happening within a very short time. Upon arrival in the ER, it appeared that she was still seizing. She was loaded with 1 g of Keppra and given benzodiazepine x2, and subsequently, the seizure broke and she was more obtunded after receiving all of these medications. Because we do not have the ability to do long-term monitoring in the ICU and because she was very sedated, there was concern that she might be in subclinical status and it would be hard to tell, I felt that she needed continuous EEG monitoring at this time. Given the nature of her seizure activity, the plan was to transfer her to either [place] or [facility] where she could have higher level of care. In addition, her CT scan shows what could be small microhemorrhages, although my suspicion is that this is calcification. She is on no blood thinners. She has been loaded on 1 g of Keppra. I will defer to the treating neurologist at the transfer center. I would recommend continued benzodiazepine for any ongoing seizure-like activity in the short-term and airway protection as necessary. Thank you for the opportunity to participate in the care of this interesting patient. [id number]/[facility] #: [id number] CHRIS
--- NOTE | 2019-02-19 03:19 | EEG ---
ELECTROENCEPHALOGRAPHY: DATE OF STUDY: 02/18/19 - EMERGENCY DEPT. CLINICAL PROBLEM: Lara Nicole is a 63-year-old woman with a history of stroke with left-sided deficit since February 2018, who had a witnessed seizure in [facility] Emergency Room. She was last seen normal today before noon on 02/18/19. REPORT: This was a 16-channel EEG. In the beginning of the record, there was clear abnormality noted in the right hemisphere with regular discharges with some spread to the left hemisphere. In the right lateral leads, there was high amplitude sharply contoured regular discharges. These were seen spreading to the remainder of the right hemisphere and also to some extent to the left hemisphere. As the record progressed, eventually there was evidence of generalized discharges that were again higher in amplitude in the right lateral hemispheric leads. This generalized discharge abruptly stopped and there was background slowing with superimposed fast activity. The patient had received Ativan 2 mg and Keppra. As the record continued, there was more slowing in the right than left hemisphere with the return of sharply contoured theta and eventually poorly formed discharges in the right hemisphere in the lateral leads. Intermittently, a normal alpha activity could be noted in the left hemisphere while the right hemisphere remained slow. Superimposed movement artifact was noted near the end of the record limiting the evaluation. Of note, cardiac lead was noted to have an irregularly irregular rhythm. IMPRESSION: This was an abnormal EEG with regular discharges, more predominant initially in the right hemisphere and eventually generalizing consistent with ongoing seizure activity. The electrographic seizure activity improved during the recording with some continued intermittent discharges in the right hemisphere. EEG was reviewed in the emergency room while it was recording and findings of electrographic seizure activity were discussed directly with Dr. David Barnes and Silver Mirza NP. Abnormal rhythm was noted in the cardiac lead. [id number]/[facility] #: [id number] [facility] SYSTEMDevin
== END 2019-02-18 18:35 | disposition short-term general hospital (02) ==
LOC: ED 15:17
DX: R56.9 Unspecified convulsions (principal); I10 Essential (primary) hypertension; I69.354 Hemiplegia and hemiparesis following cerebral infarction affecting left non-dominant side; Z87.891 Personal history of nicotine dependence
CPT/HCPCS: 70450; 71045; 93005; 95819; 96361; 96365; 96374; 96375; 96376; 99285; J2060

== ENCOUNTER 2019-10-12 13:38 | Inpatient (IN) | payer MEDICAID ==
[2019-10-12] MEDS ORDERED: Propofol* 100 ML ONE (13:43)
[2019-10-12] MEDS ORDERED: NS 0.9% 1000 ML** 1,000 ML IV ONE (13:44)
[2019-10-12] MEDS ORDERED: Midazolam* 1 MG/ML 10 ML VIAL (10 MG) ONE (13:45)
[2019-10-12] MEDS: Propofol* 100 ML IV SCH ×2 (13:48→19:29)
--- NOTE | 2019-10-12 13:49 | ED ---
Neurological HPI - HPI Summary HPI Summary: This patient is a 63 year old F BIBA via EMS to ED with a chief complaint of left-sided eye deviation and seizure since 1320. Patients last known well per family was 1100 this morning. 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 Patient is prescribed depakote but the last dose was unknown. Today, the patient had deviation to the left and and AMS. She was found by caregiver at home who called EMS. Abdulaziz Kat called at 1325 in the field by EMS with ETA 10 minutes. Patient began to have a grand mal seizure at 1320, 5 minutes prior to EMS arrival, so EMS sedated the patient with 10mg of Versed (given as 5mg at 1330 and 5mg at 1335). Per EMS, patient had an initial respiratory rate of 12 that was stable following the Versed. Per EMS, patient had no JVD and no trauma. She had a blood sugar of 169 per EMS. Patient arrives to the ED at [address] Gould and Dr. Angulo are at bedside at 1337. Patients onset of seizure symptoms were 25 minutes prior to ED arrival. Upon arrival to EMS, patient continued with decreased mental status - decision to intubate for airway protection. . EMS did not have any information on the patients DNR/DNI status. Patient taken to room 14 immediately and started intubation procedure. Following intubation, patient was put on the vent and then sent to CT. Drs. Dorsey (hospitalist) and Debbie (ICU) at bedside at 1416. - History of Current Complaint Stated Complaint: ABDULAZIZ TANG/SEIZUER PER EMS Time Seen by Provider: 10/12/19 13:38 Last Known Well Date: 10/12/19 1100 Hx Obtained From: EMS, Medical Records Onset/Duration: Sudden Onset, Still Present Timing: Sudden Onset Onset Severity: Severe Current Severity: Severe Number of Seizures: 1 Seizure Character: Generalized, Total-Clonic - Additional Pertinent History Primary Care Physician: [id number] - Allergy/Home Medications Allergies/Adverse Reactions: Allergies Allergy/AdvReac Type Severity Reaction Status Date / Time No Known Allergies Allergy Verified 11/18/18 12:12 Home Medications: Home Medications Aspirin EC TAB* [Ecotrin EC Low Dose 81 MG*] 81 mg PO DAILY 10/12/19 [History Confirmed 10/12/19] L. Acidophilus/Pectin, [place] [Acidophilus Capsule] 1 cap PO DAILY 10/12/19 [ History Confirmed 10/12/19] PMH/Surg Hx/FS Hx/Imm Hx Previously Healthy: No Endocrine/Hematology History: Denies: Hx Diabetes Cardiovascular History: Reports: Hx Hypertension, Other Cardiovascular Problems/ Disorders - pt states that she believes she has a heart arhythmia. 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 Sensory History: Reports: Hx Contacts or Glasses Denies: Hx Deafness, Hx Hearing Aid, Hx Hearing Problem, Other Sensory Impairments Opthamlomology History: Reports: Hx Contacts or Glasses Denies: Other Sensory Impairments Neurological History: Reports: Hx Seizures, Other Neuro Impairments/Disorders - Intracranial hemmorhage, encephalomalacia Psychiatric History: Denies: Hx Panic Disorder - Surgical History Surgery Procedure, Year, and Place: APPENDECTOMY 2010 [facility], [facility] Hx Anesthesia Reactions: No Infectious Disease History: Denies: Hx of Known/Suspected MRSA, Hx Shingles, Hx Tuberculosis - Family History Known Family History: Positive: Other - CA, Non-Contributory Family History: FHx: CA - Social History Occupation: Disabled Lives: With Family Alcohol Use: None Alcohol Amount: 2-3/WEEK Substance Use Type: Reports: Marijuana Substance Use Comment - Amount & Last Used: OCC MARIJUANA USE Hx Tobacco Use: Yes Smoking Status (MU): Former Smoker Type: Cigarettes Have You Smoked in the Last Year: No Review of Systems - ROS Summary Review of Systems Summary: level 5 caveat - unresponsive Negative: Fever Eyes: Other - Left eye deviation Neurological: Other - grand mal seizure All Other Systems Reviewed And Are Negative: Yes Physical Exam Triage Information Reviewed: Yes Vital Signs On Initial Exam: Initial Vitals Pulse Ox 94 10/12/19 15:02 Vital Signs Reviewed: Yes Procedures - Sedation Patient Received Moderate/Deep Sedation with Procedure: No - Intubation Time of Intubation: 13:52 Intubation Method: orotracheal Tube Size (cm): 7.5 Medications: Succinylcholine, Versed Breath Sounds after Intubation: right greater than left - Tube had migrated to 25cm, so it was moved back. Equal breath sounds heard after 23 at lips Intubation Complications: O2 saturation decreased - After patient was put on vent the first time, so patient was removed from vent and bagged which brought O2 sat back up. Patient O2 sat also decreased during post-intubation XR - poor pulse ox pleth - removed from vent - bagging, adust ETT tube, suction with consistent end tidal - pt pink, good cap refil with no arrythmia - no active seizure, tube suctioned, patient was given rocuronium and manual bagging. pt improved. ABG collected - pt to CT scan Post Intubation Xray: Yes Progress/Xray Impression: See Diagnostics. Diagnostics - Laboratory Result Diagrams: 10/14/19 06:37 10/14/19 06:37 Lab Statement: Any lab studies that have been ordered have been reviewed, and results considered in the medical decision making process. - Radiology CXR Radiology Interpretation Completed By: Radiologist Summary of Radiographic Findings: LINES AND TUBES ABOVE. NO ACTIVE CARDIOPULMONARY DISEASE. Dr. Gould has reviewed this radiology report. - CT Brain CT Interpretation Completed By: Radiologist Summary of CT Findings: STABLE RIGHT FRONTOPARIETAL ENCEPHALOMALACIA WITH ASSOCIATED DYSTROPHIC CALCIFICATION, NO. ACUTE INTRACRANIAL PATHOLOGY. PRELIMINARY FINDINGS WERE DISCUSSED WITH DR. ANGULO AT APPROXIMATELY 2:[address] Gould has reviewed this radiology report. - EKG 1511 Cardiac Rate: NL - 92 BPM EKG Rhythm: Sinus Rhythm Summary of EKG Findings: An EKG at revealed NSR at 92 BPM, mild ST depressions inferiorly, no STEMI. Dr. Gould has reviewed and interpreted this EKG. Course/Dx - Course Course Of Treatment: Pt transported by EM with report of decrease MS, eyes deviated left, and weakness. Pt had grand mal seizure enroute treated with versed 10mg pt brought to room 14 and intubated for airway protection. Dr. Angulo at bedside as abdulaziz tang called EDUCATION REP. Patient was given 80mg of succinylcholine at 1347. Patient was given 2mg more of Versed at 1348. Intubation was successful at 1352 with a 7.5 tube at 22cm lip. 30mcg/kg propofol bolus was given at 1354. Patient on the vent at 1356. Patient taken off vent at 1357 as her O2 sat dropped to the 70s. Patient was bagged immediately after taken off the vent. Patient was given 2mg of Versed at 1357. The tube had migrated to 25cm and there was an increased rise on the right so the tube was moved back to 23cm at 1359. Per pulse oximeter, patient's O2 sat dropped to 58 while post-intubation XR was taken, so 50mg of rocuronium was given at 1415. Post-intubation XR wet read confirmed tube was in place. Patient was suctioned by respiratory therapist. Another 50mg of rocuronium was given at 1417 and the patient's O2 sat went back up. Pt to CT for strike ABG reassuring. Dr. Angulo spoke with family during resuscitatio. Concern pt not compliant with depakote. pt's head CT neg for bleed - Dr. Torres will to check EEG - if no active sz, Dr. Lewis to accept to ICU. attempted to find family x 2 - not in waiting area - Diagnoses Provider Diagnoses: Seizure, Altered mental status - Physician Notifications Discussed Care Of Patient With: Abilio Angulo - Neurologist Time Discussed With Above Provider: 13:37 - 1337: Dr. Angulo at bedside. 1416: Dr. Lewis (ICU) at bedside, who accepted patient for admission to ICU. At 1441: Discussed patient case with Dr. Angulo who had talked to the radiologist and reported that the brain CT revealed no changes from the patients previous brain CT. - Critical Care Time Critical Care Time: 75-104 min - 35 minutes Discharge ED - Sign-Out/Discharge Documenting (check all that apply): Patient Departure - Admit - Discharge Plan Condition: Improved Disposition: ADMITTED TO [facility] - Billing Disposition and Condition Condition: IMPROVED Disposition: Admitted to [facility] - Attestation Statements Document Initiated by Pao: Yes Documenting Scribe: Philip Rodriguez Provider For Whom Pao is Documenting (Include Credential): Chapis Gould MD Scribe Attestation: I, Philip Rodriguez, scribed for Chapis Gould MD on 10/16/19 at 2055. Scribe Documentation Reviewed: Yes Provider Attestation: The documentation as recorded by the Philip morales accurately reflects the service I personally performed and the decisions made by me, Chapis Gould MD Status of Scribe Document: Viewed
[2019-10-12 14:04] LABS: ABS Basophils 0.1 10^3/ul (0-0.2); ABS Lymphocytes 1.7 10^3/ul (1.0-4.8); ABS Monocytes 0.5 10^3/ul (0-0.8); ABS Neutrophils 11.2 10^3/ul (1.5-7.7); Eosinophil % 0.2 %; Hematocrit 43 % (35-47); Hemoglobin 14.4 g/dL (12.0-16.0); Lymphocyte % 12.5 %; Mean Corpuscular HGB Conc 34 g/dL (31-36); Mean Corpuscular Hemoglobin 33 pg (27-31); Mean Corpuscular Volume 97 fL (80-97); Mean Platelet Volume 8.1 fL (7.4-10.4); Platelet Count 344 10^3/uL (150-450); Red Blood Count 4.44 10^6 /uL (3.70-4.87); Red Cell Distribution Width 13 % (10-15); White Blood Count 13.6 10^3/uL (3.5-10.8)
[2019-10-12] MEDS ORDERED: Succinylcholine* 20 MG/ML 10 ML VIAL IV ONE (14:05)
[2019-10-12] MEDS ORDERED: Valproic Acid IV(*) 1,000 MG in NS 0.9% 100 ML* 100 ML IVPB ONE (14:05)
[2019-10-12] MEDS ORDERED: Propofol* 100 ML IV ONE (14:06)
[2019-10-12 14:13] LABS: Activated Partial Thrombo Time 35.1 seconds (26.0-38.0); INR 1.01 (0.82-1.09)
[2019-10-12] MEDS ORDERED: Rocuronium* 10 MG/ML VIAL ONE (14:16)
[2019-10-12 14:22] LABS: Albumin 4.5 g/dL (3.2-5.2); Albumin/Globulin Ratio 1.6 (1-3); BUN/Creatinine Ratio 12.3 (8-20); Calcium 9.5 mg/dL (8.6-10.3); EGFR African American 97.1 (>60); EGFR Non-African American 80.3 (>60); Globulin 2.8 g/dL (2-4); HDL Cholesterol 85.6 mg/dL; Potassium 3.4 mmol/L (3.5-5.0); Total Bilirubin 0.5 mg/dL (0.2-1.0); Total Protein 7.3 g/dL (6.4-8.9)
[2019-10-12 14:23] LABS: Troponin I 0.01 ng/mL (<0.03)
--- NOTE | 2019-10-12 16:06 | CONS ---
ADDENDUM NOW INCLUDED ON THIS REPORT NEUROLOGY CONSULTATION: DATE OF CONSULT: 10/12/19 LOCATION: She is in the emergency room, to be admitted. REFERRING PROVIDER: Dr. Chapis Gould. CHIEF COMPLAINT: Seizures. HISTORY OF PRESENT ILLNESS: Lara Nicole is a 63-year-old woman known to me from prior evaluations for cerebrovascular disease and subsequent seizures. She initially presented to our emergency room in February of 2018. She presented with a left hemiparesis, which she woke up with. She was seen by Dr. Phoebe Vines in initial consultation and had an NIH Stroke Scale of 19 due to left hemiparesis. She had a headache as well. CT of the brain showed a large right intraparenchymal hemorrhage involving the right parietal lobe with mild intraventricular blood as well. CT angiogram and CT venogram of the head and neck were obtained and were interpreted as normal. There was a prior history of hypertension and she was on an antihypertensive medication, which was apparently stopped because of low blood pressure. She has no history of coagulation disorder. She was transferred to the [facility] where reportedly she had negative cerebral angiogram. It was felt she might have had a primary hypertensive hemorrhage. She presented to the hospital again to the emergency room on 02/18/19 with episodes of "feeling weird" and subsequently observed seizures. There was left head turning as well as left gaze deviation as well as rigidity and shaking. She was seen by Dr. David Barnes. She was treated with lorazepam and levetiracetam. She was transferred again to either [facility] or the [facility] because of inability to do continuous EEG monitoring here. She was discharged on oral Keppra. She presented to our emergency room 2 months later on 05/07/19 with episodes of visual hallucinations and episodes of left-sided sensory disturbance lasting 5 minutes at a time. Followup CAT scan revealed the old scar from the right frontoparietal hemorrhage as well as some dystrophic calcifications. She had an EEG, which showed epileptiform discharges from the right frontotemporal region. She was switched to Depakote. According to her son Jt, she was fine this morning and he had breakfast with her. He says she has not had seizures for at least weeks if not months. He left the house at 11 a.m. and she was at her baseline level of functioning. An aide arrived at about 1 or 1:30 and found her to be confused and exhibiting episodic eye deviation. An ambulance was summoned. Ambulance attendants say that when they first got there she was able to answer simple questions, but soon after became unresponsive with left gaze deviation and generalized rigidity and shaking. She was transported to the emergency room and was given a total of 10 mg of midazolam en route. In the emergency room when I first saw her in a stretcher in the hallway, she had left gaze deviation and rigidity of both legs. There was no clonic activity. She was not ventilating well and so was taken straight to the emergency room where she was intubated. PAST MEDICAL HISTORY: Otherwise notable for hypertension, 2 miscarriages, and most notably the right intracranial hemorrhage. MEDICATIONS: At home consist of: 1. Depakote extended release 1000 mg at bedtime. 2. She is reportedly on amlodipine. 3. Vitamin B12 orally. 4. Magnesium oxide orally. 5. Potassium supplementation. ALLERGIES: She does not have any drug allergies. There is one notation that she is allergic to KEPPRA, but I believe that was simply switched because of the focal seizures. SOCIAL HISTORY: She continues to smoke. She also uses marijuana. No other history of drug use. REVIEW OF SYSTEMS: From the patient is not possible, her son indicates that she has not been ill recently. When asked if she might have missed doses of her medication, he says that she is "stubborn" and he would not be surprised if she is either not taking or missing doses. PHYSICAL EXAM: Physical exam was carried out multiple times throughout her stay in the emergency room. Currently, an EEG is being applied. Her initial left gaze deviation and rigidity resolved after propofol infusion. Subsequent to propofol infusion on her examination, pupils react from 4.5 down to 3 mm sluggishly. Eyes are mid position. There are no spontaneous movements. There are contractures of the left arm. She is areflexic. She does not make any movements or facial movements to deep nail bed pressure. Plantar responses are mute. There is no response to nasal tickle. DIAGNOSTIC STUDIES/LAB DATA: Includes a CBC with a white blood cell count of 13.6 and otherwise a normal CBC. Chemistries are notable for potassium of 3.4, glucose 238, lactic acid 3.6, and otherwise normal chemistries. Cholesterol today is 236 and LDL 127. Blood gas is 7.40 pH, pCO2 30, pO2 after intubation. Her INR and PTT are normal. CT of the brain is reviewed and reveals her old right hemorrhage bed as well as some dystrophic calcifications, unchanged from the last CT scan of the brain done here in April of 2019. 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 Her Depakote level is pending. She has been given 1000 mg of Depakote IV as well as the midazolam that she received in the field as well as a paralytic agent and propofol infusion. If her EEG shows no evidence of subclinical status epilepticus, she will be admitted to the intensive care unit. If the EEG suggests that she needs continuous EEG monitoring, then we may need to look at transferring her. At this point, she will continue Depakote and I have put in orders for 750 mg every 8 hours intravenously. Further recommendations will depend upon her subsequent hospital course, the results of her laboratory studies, and her EEG. ADDENDUM: DATE OF CONSULT: 10/12/19 LOCATION: She is in the emergency room, to be admitted to the intensive care unit. NEUROINTENSIVIST: Dr. Vaca. INTERVAL HISTORY: Since last dictation, there have been no new clinical events , although the patient is intubated on propofol. Her EEG shows slowing from the right hemisphere, but I do not see any active epileptiform discharges at cursory first glance. Therefore, she will be admitted to the intensive care unit and repeat EEG will be done tomorrow morning. She will be continued on intravenous Depakote and we will check a blood level again tomorrow morning. Her valproic acid level today is less than 13 consistent with complete noncompliance. I will discuss this with her son Jt as well. TIME SPENT: Over 120 minutes was spent in direct care of the patient in the emergency room today. [id number]/CPS #: [id number] Marifer- [id number]/CPS #: [id number] CHRIS
--- NOTE | 2019-10-12 16:14 | CONS ---
NEUROLOGY CONSULTATION: ADDENDUM: DATE OF CONSULT: 10/12/19 LOCATION: She is in the emergency room, to be admitted to the intensive care unit. NEUROINTENSIVIST: Dr. Vaca. INTERVAL HISTORY: Since last dictation, there have been no new clinical events , although the patient is intubated on propofol. Her EEG shows slowing from the right hemisphere, but I do not see any active epileptiform discharges at cursory first glance. Therefore, she will be admitted to the intensive care unit and repeat EEG will be done tomorrow morning. She will be continued on intravenous Depakote and we will check a blood level again tomorrow morning. Her valproic acid level today is less than 13 consistent with complete noncompliance. I will discuss this with her son Jt as well. TIME SPENT: Over 120 minutes was spent in direct care of the patient in the emergency room today. [id number]/CPS #: [id number] MTDDevin
[2019-10-12 16:27] LABS: Magnesium 1.6 mg/dL (1.9-2.7)
[2019-10-12 16:42] LABS: Urine Appearance Clear; Urine Bilirubin Negative (Negative); Urine Blood Negative (Negative); Urine Color Yellow; Urine Glucose Negative (Negative); Urine Ketones Trace (Negative); Urine Nitrite Negative (Negative); Urine Protein Negative (Negative); Urine Specific Gravity 1.012 (1.010-1.030); Urine Urobilinogen Negative (Negative)
[2019-10-12] MEDS ORDERED: Lactated Ringers 1000 ML Bag* 1,000 ML IV SCH (17:00)
[2019-10-12 17:47] LABS: ABS Lymphocytes 0.8 10^3/ul (1.0-4.8); ABS Monocytes 0.7 10^3/ul (0-0.8); ABS Neutrophils 15.7 10^3/ul (1.5-7.7); Hematocrit 42 % (35-47); Hemoglobin 14.3 g/dL (12.0-16.0); Lymphocyte % 4.8 %; Mean Corpuscular HGB Conc 34 g/dL (31-36); Mean Corpuscular Hemoglobin 33 pg (27-31); Mean Corpuscular Volume 95 fL (80-97); Red Blood Count 4.37 10^6 /uL (3.70-4.87); Red Cell Distribution Width 13 % (10-15); White Blood Count 17.3 10^3/uL (3.5-10.8)
[2019-10-12 17:53] LABS: Calcium 9.1 mg/dL (8.6-10.3); Potassium 3.6 mmol/L (3.5-5.0)
[2019-10-12 17:58] LABS: BUN/Creatinine Ratio 12.7 (8-20); EGFR African American 100.3 (>60); EGFR Non-African American 82.9 (>60)
[2019-10-12 18:15] LABS: Platelet Count Platelets clumped. 10^3/uL (150-450)
--- NOTE | 2019-10-12 18:18 | HP ---
HISTORY AND PHYSICAL: DATE OF ADMISSION: 10/12/19 ADMITTING PROVIDER: Mary Lewis MD.* (DICTATED BY MANOLO SOL NP) PRIMARY CARE PROVIDER: Dr. Durán. CHIEF COMPLAINT: Left-sided gaze deviation and seizure like activity since 1320. Last known well 11 a.m. HISTORY OF PRESENT ILLNESS: The patient was with her caregiver at home, suddenly noted to have left gaze deviation with seizure activity. The patient has a history of spontaneous right intracerebral hemorrhage in 2018 with left- sided weakness and contractures. She was initially on Keppra for seizure prophylaxis, started 1 year ago, but had some intolerance to it. She was transitioned to Depakote 500 mg b.i.d., but there is a concern that the patient does not take her medications as indicated. Upon EMS arrival, the patient was given 5 mg of Versed, seizures did not cease, so she was given another 5 mg. Upon arrival to the emergency room, the patient experienced acute respiratory failure, was intubated. The patient was unable to provide HPI, level 5 caveat. Vitals upon admission: Temperature 97 degrees Fahrenheit, heart rate 130, blood pressure 164/79. Depakote level was sent. The patient was loaded with [address] brain completed and is negative for acute changes, re-demonstrated right frontoparietal encephalomalacia with associated dystrophic calcifications. MEDICATIONS: Home medications: Unable to verify; 1. Potassium 20 mEq daily. 2. Magnesium oxide 400 mg daily. 3. Keppra 750 mg daily; however, according to Dr. Villanueva, the patient was supposed to be taking Depakote 500 mg b.i.d. 4. Amlodipine 2.5 mg daily. 5. Acidophilus capsule daily. 6. Aspirin 81 mg daily. ALLERGIES: No known allergies. FAMILY HISTORY: Unable to obtain due to intubation. SOCIAL HISTORY: According to chart, the patient has alcoholic beverage 2 to 3 times per week, uses marijuana, previous tobacco user. REVIEW OF SYSTEMS: Unable to obtain secondary to intubated/sedated. PHYSICAL EXAMINATION GENERAL APPEARANCE: The patient is intubated, lying on the stretcher, recently received rocuronium and is on propofol. HEENT: Normocephalic, atraumatic. Pupils equal, round, and reactive. ENT: Dry mucous membranes. PULMONARY: Bilateral air entry, coarse lung sounds throughout. CVS: Tachycardic, appears to be sinus, normal rate. ABDOMEN: Soft, nondistended, bowel sounds present. EXTREMITIES/MUSCULAR: Extremities are cool, pulses are intact, appears to have some mottling of her fingers. SKIN: Cool to touch peripherally. NEUROLOGIC: The patient is sedated, recently paralysed, unable to assess at this time. DIAGNOSTIC STUDIES/LAB DATA: WBC 13.6, hemoglobin 14.1, platelets 344, INR 1.01. AB.40/30/476/100. Sodium 138, potassium 3.4, chloride 100, carbon dioxide 28, anion gap 10, BUN 9, creatinine 0.73. Glucose 238, lactic acid 3.6. Liver enzymes normal, Depakote level less than 13. ASSESSMENT AND PLAN: A 63-year-old female with a known medical history of spontaneous right intracerebral hemorrhage in 2018, seizure disorder, status post seizure medication started 1 year ago, questionable compliance with medications. Presents on 10/12/19 after her caregiver noticed a sudden left gaze deviation with seizure like movement. We obtained CT brain, which was negative for acute changes, no intracerebral hemorrhage. Chest x-ray completed post intubation. We will reassess upon admission to ICU. The patient was intubated, started on propofol and weaned for a RASS of negative 1. Seizures versus status epilepticus: Was already loaded with 1 g of Depakote and we will start 500 mg b.i.d., EEG intermittent, neuro checks, control blood pressure. Respiratory: We will continue current ventilator setting, consider repeat ABG in morning. WBC is most likely elevated due to seizure activity but we will continue to trend. We will start LR at 50 cc for hydration. Blood sugar checks q.4 hours. May start low dose rapid acting insulin if needed. Remain n.p.o. at this time. CRITICAL CARE TIME: 60 minutes. MANOLO SOL, [place] [id number]/[facility] #: [id number] CHRIS
[2019-10-12] MEDS ORDERED: Valproic Acid LIQ(*) 250 MG/5 ML UDC PO SCH (21:00)
[2019-10-12] MEDS: Chlorhexidine MOUTHWASH 0.12%* 15 ML UDC SWISH SPIT SCH ×2 (21:10→22:25)
[2019-10-12] MEDS: Famotidine IV* 10 MG/ML 2 ML (20 mg) IV SLOW PU SCH (21:10)
[2019-10-12] MEDS: Enoxaparin(*) 30 MG/0.3 ML SYR SUBCUT SCH (21:11)
[2019-10-12] MEDS: amLODIPine TAB* 5 MG FEED TUBE SCH (22:28)
--- NOTE | 2019-10-13 00:25 | EEG ---
ELECTROENCEPHALOGRAM REPORT: DATE OF RECORDIN10/12/19 REFERRING PROVIDER: Dr. Chapis Gould She is in the emergency room to be admitted. CLINICAL HISTORY: The patient with repetitive seizures, intubated at the time of this recording. The patient was supposed to be on Depakote at home, but had an undetectable level in the emergency room. Medications at the time of EEG include propofol infusion. She had received several doses of midazolam and also received succinylcholine. EEG DESCRIPTION: This 19-channel EEG is remarkable for background rhythms consisting of diffuse slowing from the right hemisphere. Rhythms are mainly in the delta range. There is fairly abundant beta rhythms seen more prominently from the left hemisphere than the right. Rhythms from the left hemisphere approach 8 to 9 cycles per second, but there is no clear anterior or posterior gradient. The patient apparently tries to pull out her endotracheal tube at times. There are no epileptiform discharges during this recording. There are no clinical events otherwise other than 1 episode of right arm shaking. There are no changes in background rhythms during the arm shaking. INTERPRETATION: Abnormal EEG due to generalized slowing from the right hemisphere as well as disorganization from rhythms from the left hemisphere. This tracing is compatible with diffuse dysfunction of the right hemisphere and a mild diffuse dysfunction of the left hemisphere. There are no epileptiform discharges during this recording. [id number]/[facility] #: [id number] [facility]
[2019-10-13] MEDS: Propofol* 100 ML IV SCH (00:45)
[2019-10-13] MEDS: Chlorhexidine MOUTHWASH 0.12%* 15 ML UDC SWISH SPIT SCH ×3 (00:45→08:01)
[2019-10-13] MEDS: Valproic Acid IV(*) 500 MG in NS 0.9% 100 ML* 100 ML IVPB SCH ×2 (00:48→08:39)
[2019-10-13 05:24] LABS: ABS Basophils 0.1 10^3/ul (0-0.2); ABS Lymphocytes 1.9 10^3/ul (1.0-4.8); ABS Monocytes 1.3 10^3/ul (0-0.8); Eosinophil % 0.1 %; Hematocrit 35 % (35-47); Hemoglobin 11.9 g/dL (12.0-16.0); Lymphocyte % 15.4 %; Mean Corpuscular HGB Conc 34 g/dL (31-36); Mean Corpuscular Hemoglobin 33 pg (27-31); Mean Corpuscular Volume 96 fL (80-97); Platelet Count 240 10^3/uL (150-450); Red Blood Count 3.64 10^6 /uL (3.70-4.87); Red Cell Distribution Width 13 % (10-15); White Blood Count 12.2 10^3/uL (3.5-10.8)
[2019-10-13 05:40] LABS: BUN/Creatinine Ratio 10.5 (8-20); Calcium 7.2 mg/dL (8.6-10.3); EGFR African American 129.2 (>60); EGFR Non-African American 106.8 (>60)
[2019-10-13] MEDS ORDERED: Potassium Chloride* LIQUID 20 MEQ/15 ML UDC PO ONE (06:06)
[2019-10-13] MEDS ORDERED: Magnesium Sulfate IV* 3 GM in NS 0.9% 100 ML* 100 ML IVPB ONE (06:06)
[2019-10-13] MEDS: Famotidine IV* 10 MG/ML 2 ML (20 mg) IV SLOW PU SCH (07:35)
[2019-10-13] MEDS: amLODIPine TAB* 5 MG FEED TUBE SCH (07:35)
[2019-10-13] MEDS: Magnesium Oxide TAB* 400 MG PO SCH (07:35)
[2019-10-13] MEDS: Aspirin EC TAB* 81 MG TAB.EC PO SCH (07:35)
[2019-10-13] MEDS: Lactobacillus Acidophilus* 1 TAB PO SCH (07:35)
[2019-10-13 07:42] LABS: Magnesium 1.2 mg/dL (1.9-2.7)
--- NOTE | 2019-10-13 12:25 | PN ---
Progress Note - Progress Note Date of Service: 10/13/19 Note: Progress Note -- Critical Care 24 hour events/significant events: - Intubated on admission for airway protection - No further seizures - Electrolytes replaced - Depakote started ROS: ROS unable to be obtained secondary to intubated/sedated Tele: NSR no ectopy Vitals: Vital Signs 10/12/19 10/12/19 10/12/19 14:44 14:49 14:54 Temperature Pulse Rate 99 97 95 Respiratory Rate Blood Pressure 149/114 150/108 144/113 (mmHg) O2 Sat by Pulse 93 99 91 Oximetry 10/12/19 10/12/19 10/12/19 14:59 15:01 15:02 Temperature Pulse Rate 97 99 Respiratory Rate Blood Pressure 155/110 (mmHg) O2 Sat by Pulse 89 91 94 Oximetry 10/12/19 10/12/19 10/12/19 15:04 15:09 15:14 Temperature 97 F Pulse Rate 93 Respiratory 6 Rate Blood Pressure 150/104 145/104 150/108 (mmHg) O2 Sat by Pulse 97 Oximetry 10/12/19 10/12/19 10/12/19 15:19 15:24 15:30 Temperature Pulse Rate 103 100 102 Respiratory Rate Blood Pressure 173/104 155/103 146/100 (mmHg) O2 Sat by Pulse 91 100 100 Oximetry 10/12/19 10/12/19 10/12/19 15:35 15:45 15:49 Temperature Pulse Rate 106 111 105 Respiratory Rate Blood Pressure 137/112 131/99 132/99 (mmHg) O2 Sat by Pulse 100 100 100 Oximetry 10/12/19 10/12/19 10/12/19 15:54 16:00 16:02 Temperature 99.7 F Pulse Rate 106 92 Respiratory 16 Rate Blood Pressure 117/94 127/107 105/76 (mmHg) O2 Sat by Pulse 100 100 Oximetry 10/12/19 10/12/19 10/12/19 16:04 16:09 16:14 Temperature Pulse Rate 105 Respiratory Rate Blood Pressure 125/92 101/80 124/98 (mmHg) O2 Sat by Pulse 100 Oximetry 10/12/19 10/12/19 10/12/19 16:19 16:24 16:29 Temperature 98.2 F Pulse Rate Respiratory Rate Blood Pressure 110/93 131/100 112/86 (mmHg) O2 Sat by Pulse Oximetry 10/12/19 10/12/19 10/12/19 16:39 17:00 17:15 Temperature 99.1 F 100.0 F Pulse Rate 96 111 79 Respiratory 16 16 Rate Blood Pressure 106/77 105/76 85/55 (mmHg) O2 Sat by Pulse 98 98 100 Oximetry 10/12/19 10/12/19 10/12/19 17:30 17:46 17:51 Temperature 100.2 F 100.2 F 100.2 F Pulse Rate 75 74 82 Respiratory Rate Blood Pressure 97/73 79/61 107/81 (mmHg) O2 Sat by Pulse 100 100 100 Oximetry 10/12/19 10/12/19 10/12/19 18:00 18:17 18:30 Temperature 100.0 F 100.0 F 99.9 F Pulse Rate 82 85 93 Respiratory 15 Rate Blood Pressure 95/70 129/96 135/99 (mmHg) O2 Sat by Pulse 100 100 100 Oximetry 10/12/19 10/12/19 10/12/19 18:45 19:00 19:16 Temperature 100.2 F 100.4 F 100.4 F Pulse Rate 79 74 89 Respiratory 16 Rate Blood Pressure 99/82 95/73 135/96 (mmHg) O2 Sat by Pulse 100 99 100 Oximetry 10/12/19 10/12/19 10/12/19 19:30 19:45 20:00 Temperature 100.4 F 100.4 F 100.2 F Pulse Rate 85 92 92 Respiratory 17 Rate Blood Pressure 130/104 140/98 (mmHg) O2 Sat by Pulse 100 100 100 Oximetry 10/12/19 10/12/19 10/12/19 20:01 20:15 20:30 Temperature 100.0 F 100.6 F 100.8 F Pulse Rate 94 88 81 Respiratory Rate Blood Pressure 138/103 136/99 113/85 (mmHg) O2 Sat by Pulse 100 100 100 Oximetry 10/12/19 10/12/19 10/12/19 20:46 21:00 21:12 Temperature 100.8 F 100.8 F 100.8 F Pulse Rate 91 80 85 Respiratory 15 Rate Blood Pressure 154/112 129/100 144/105 (mmHg) O2 Sat by Pulse 100 99 99 Oximetry 10/12/19 10/12/19 10/12/19 21:15 21:22 21:25 Temperature 100.4 F 100.9 F 100.8 F Pulse Rate 87 86 84 Respiratory Rate Blood Pressure 131/100 150/105 137/100 (mmHg) O2 Sat by Pulse 100 100 99 Oximetry 10/12/19 10/12/19 10/12/19 21:36 21:45 21:56 Temperature 100.8 F 100.6 F Pulse Rate 84 84 Respiratory 16 Rate Blood Pressure 150/103 144/105 (mmHg) O2 Sat by Pulse 100 99 Oximetry 10/12/19 10/12/19 10/12/19 22:00 22:15 22:30 Temperature 100.8 F 100.9 F 99.7 F Pulse Rate 85 86 72 Respiratory Rate Blood Pressure 148/107 153/96 134/97 (mmHg) O2 Sat by Pulse 99 100 99 Oximetry 10/12/19 10/12/19 10/12/19 22:45 23:00 23:15 Temperature 100.4 F 99.7 F 100.0 F Pulse Rate 94 75 77 Respiratory 16 Rate Blood Pressure 153/102 114/82 139/98 (mmHg) O2 Sat by Pulse 82 100 100 Oximetry 10/12/19 10/12/19 10/13/19 23:30 23:45 00:00 Temperature 99.5 F 100.4 F 100.2 F Pulse Rate 76 74 74 Respiratory 15 Rate Blood Pressure 124/89 101/72 105/77 (mmHg) O2 Sat by Pulse 100 100 100 Oximetry 10/13/19 10/13/19 10/13/19 00:15 00:17 00:30 Temperature 100.0 F 99.9 F 99.7 F Pulse Rate 73 73 69 Respiratory Rate Blood Pressure 97/73 121/85 (mmHg) O2 Sat by Pulse 100 100 100 Oximetry 10/13/19 10/13/19 10/13/19 01:00 01:30 02:00 Temperature 97.7 F 98.1 F 97.5 F Pulse Rate 71 74 65 Respiratory 15 16 Rate Blood Pressure 123/87 82/62 99/79 (mmHg) O2 Sat by Pulse 99 97 98 Oximetry 10/13/19 10/13/19 10/13/19 02:31 03:00 03:30 Temperature 99.3 F 99.7 F 99.3 F Pulse Rate 83 72 67 Respiratory 15 Rate Blood Pressure 152/84 102/76 85/65 (mmHg) O2 Sat by Pulse 100 99 98 Oximetry 10/13/19 10/13/19 10/13/19 03:45 04:00 04:30 Temperature 99.1 F 99.0 F 98.6 F Pulse Rate 66 63 62 Respiratory 15 Rate Blood Pressure 89/64 110/81 133/93 (mmHg) O2 Sat by Pulse 98 100 100 Oximetry 10/13/19 10/13/19 10/13/19 05:00 06:00 06:24 Temperature 98.8 F 99.5 F 99.3 F Pulse Rate 69 71 69 Respiratory 15 15 Rate Blood Pressure 140/97 100/77 (mmHg) O2 Sat by Pulse 100 97 98 Oximetry 10/13/19 10/13/19 10/13/19 06:55 07:00 07:13 Temperature 99.0 F 99.0 F Pulse Rate 67 74 Respiratory 15 Rate Blood Pressure 131/93 (mmHg) O2 Sat by Pulse 100 100 Oximetry 10/13/19 10/13/19 10/13/19 08:00 08:03 08:15 Temperature 99.3 F 99.3 F 99.3 F Pulse Rate 82 84 84 Respiratory 18 Rate Blood Pressure 144/95 124/93 (mmHg) O2 Sat by Pulse 94 95 93 Oximetry 10/13/19 10/13/19 10/13/19 08:30 08:45 09:00 Temperature 99.3 F 99.3 F 99.5 F Pulse Rate 82 86 85 Respiratory 18 Rate Blood Pressure 126/89 109/80 132/88 (mmHg) O2 Sat by Pulse 93 91 91 Oximetry 10/13/19 10/13/19 10/13/19 09:05 09:15 09:30 Temperature 99.5 F 99.5 F Pulse Rate 83 87 Respiratory 18 Rate Blood Pressure 111/84 110/83 (mmHg) O2 Sat by Pulse 93 95 98 Oximetry 10/13/19 10/13/19 10:00 11:00 Temperature 99.5 F 97.9 F Pulse Rate 73 85 Respiratory 13 16 Rate Blood Pressure 121/78 124/88 (mmHg) O2 Sat by Pulse 100 Oximetry O2/Vent: Infusions: Propofol @ 75, LR @ 50 Medications: Amlodipine Besylate (Norvasc Tab*) 2.5 mg FEED TUBE DAILY [facility] Last Admin: 10/13/19 07:35 Dose: 2.5 mg Aspirin (Aspirin Ec Tab*) 81 mg PO DAILY [facility] Last Admin: 10/13/19 07:35 Dose: 81 mg Enoxaparin Sodium (Lovenox(*)) 30 mg SUBCUT Q24H [facility] Last Admin: 10/12/19 21:11 Dose: 30 mg Valproic Acid 500 mg/ Sodium (Chloride) 105 mls @ 210 mls/hr IVPB Q8H [facility] Last Admin: 10/13/19 08:39 Dose: 210 mls/hr Lactobacillus Rhamnosus (Lactobacillus Acidophilus*) 1 tab PO DAILY [facility] Last Admin: 10/13/19 07:35 Dose: 1 tab Magnesium Oxide (Magox 400 Tab*) 400 mg PO DAILY [facility] Last Admin: 10/13/19 07:35 Dose: 400 mg Physical Exam: Constitutional: propofol paused for exam. She attempts to open eyes to command. Mild distress, no diaphoresis Head: normocephalic, atraumatic Eyes: no pallor, no icterus ENT: moist mucous membranes Neck: soft, supple, no jvd, no stridor CVS: normal rate, regular, no murmur Chest/Resp: bilateral air entry, no rhales, no wheeze, no rhonchi, no acc muscle use Abdomen/GI: soft, nontender, nondistended, BS+ Ext/Msk: warm, pulses+, no edema Skin: intact, warm Neuro: Attempts to open eyes to command. She localizes pain RUE and RLE extremity, no movement LUE and LLE but sensation appears intact. According to family, this is baseline. She is doing well on pressure support. Labs: Laboratory Results - last 24 hr 10/12/19 10/12/19 10/12/19 13:55 13:55 13:55 WBC 13.6 H RBC 4.44 Hgb 14.4 Hct 43 MCV 97 MCH 33 H MCHC 34 RDW 13 Plt Count 344 MPV 8.1 Neut % (Auto) 82.6 Lymph % (Auto) 12.5 [place] % (Auto) 3.7 Eos % (Auto) 0.2 Baso % (Auto) 1.0 Absolute Neuts (auto) 11.2 H Absolute Lymphs (auto) 1.7 Absolute Monos (auto) 0.5 Absolute Eos (auto) 0.0 Absolute Basos (auto) 0.1 Absolute Nucleated RBC 0.0 Nucleated RBC % 0.0 INR (Anticoag Therapy) 1.01 APTT 35.1 Patient Temperature ABG pH ABG pH (Temp Correct) ABG pCO2 ABG pCO2 (Temp Corrct ABG pO2 ABG pO2 (Temp Correct ABG HCO3 ABG O2 Saturation ABG Base Excess Respiration Rate Ventilator Type Vent Mode FiO2 Inspiratory Time PEEP Pressure Support Pressure Control EPAP IPAP BiPAP Sodium 138 Potassium 3.4 L Chloride 100 L Carbon Dioxide 28 Anion Gap 10 BUN 9 Creatinine 0.73 Est GFR ( Amer) 97.1 Est GFR (Non-Af Amer) 80.3 BUN/Creatinine Ratio 12.3 Glucose 238 H POC Glucose (mg/dL) Lactic Acid Calcium 9.5 Magnesium 1.6 L Total Bilirubin 0.50 AST 19 ALT 15 Alkaline Phosphatase 50 Troponin I 0.01 Total Protein 7.3 Albumin 4.5 Globulin 2.8 Albumin/Globulin Ratio 1.6 Triglycerides 118 Cholesterol 236 LDL Cholesterol 127 HDL Cholesterol 85.6 Urine Color Urine Appearance Urine pH Ur Specific Hunter Urine Protein Urine Ketones Urine Blood Urine Nitrate Urine Bilirubin Urine Urobilinogen Ur Leukocyte Esterase Urine Glucose Valproic Acid 10/12/19 10/12/19 10/12/19 13:55 13:55 14:20 WBC RBC Hgb Hct MCV MCH MCHC RDW Plt Count MPV Neut % (Auto) Lymph % (Auto) [place] % (Auto) Eos % (Auto) Baso % (Auto) Absolute Neuts (auto) Absolute Lymphs (auto) Absolute Monos (auto) Absolute Eos (auto) Absolute Basos (auto) Absolute Nucleated RBC Nucleated RBC % INR (Anticoag Therapy) APTT Patient Temperature Not Reportable ABG pH 7.40 ABG pH (Temp Correct) Not Reportable ABG pCO2 30 L ABG pCO2 (Temp Corrct Not Reportable ABG pO2 476 H ABG pO2 (Temp Correct Not Reportable ABG HCO3 21.0 ABG O2 Saturation 100.0 H ABG Base Excess -5.0 L Respiration Rate Not Reportable Ventilator Type Not Reportable Vent Mode Not Reportable FiO2 100 Inspiratory Time Not Reportable PEEP Not Reportable Pressure Support Not Reportable Pressure Control Not Reportable EPAP Not Reportable IPAP Not Reportable BiPAP Not Reportable Sodium Potassium Chloride Carbon Dioxide Anion Gap BUN Creatinine Est GFR ( Amer) Est GFR (Non-Af Amer) BUN/Creatinine Ratio Glucose POC Glucose (mg/dL) Lactic Acid 3.6 H* Calcium Magnesium Total Bilirubin AST ALT Alkaline Phosphatase Troponin I Total Protein Albumin Globulin Albumin/Globulin Ratio Triglycerides Cholesterol LDL Cholesterol HDL Cholesterol Urine Color Urine Appearance Urine pH Ur Specific Hunter Urine Protein Urine Ketones Urine Blood Urine Nitrate Urine Bilirubin Urine Urobilinogen Ur Leukocyte Esterase Urine Glucose Valproic Acid < 13.0 L 10/12/19 10/12/19 10/12/19 16:00 16:00 16:25 WBC 17.3 H RBC 4.37 Hgb 14.3 Hct 42 MCV 95 MCH 33 H MCHC 34 RDW 13 Plt Count Platelets clumped. H MPV Not Reportable Neut % (Auto) 90.9 Lymph % (Auto) 4.8 [place] % (Auto) 4.1 Eos % (Auto) 0.0 Baso % (Auto) 0.2 Absolute Neuts (auto) 15.7 H Absolute Lymphs (auto) 0.8 L Absolute Monos (auto) 0.7 Absolute Eos (auto) 0.0 Absolute Basos (auto) 0.0 Absolute Nucleated RBC 0.0 Nucleated RBC % 0.0 INR (Anticoag Therapy) APTT Patient Temperature ABG pH ABG pH (Temp Correct) ABG pCO2 ABG pCO2 (Temp Corrct ABG pO2 ABG pO2 (Temp Correct ABG HCO3 ABG O2 Saturation ABG Base Excess Respiration Rate Ventilator Type Vent Mode FiO2 Inspiratory Time PEEP Pressure Support Pressure Control EPAP IPAP BiPAP Sodium 141 Potassium 3.6 Chloride 106 Carbon Dioxide 22 Anion Gap 13 H BUN 9 Creatinine 0.71 Est GFR ( Amer) 100.3 Est GFR (Non-Af Amer) 82.9 BUN/Creatinine Ratio 12.7 Glucose 91 POC Glucose (mg/dL) Lactic Acid Calcium 9.1 Magnesium Total Bilirubin AST ALT Alkaline Phosphatase Troponin I Total Protein Albumin Globulin Albumin/Globulin Ratio Triglycerides Cholesterol LDL Cholesterol HDL Cholesterol Urine Color Yellow Urine Appearance Clear Urine pH 6.0 Ur Specific Hunter 1.012 Urine Protein Negative Urine Ketones Trace A Urine Blood Negative Urine Nitrate Negative Urine Bilirubin Negative Urine Urobilinogen Negative Ur Leukocyte Esterase Negative Urine Glucose Negative Valproic Acid 10/12/19 10/13/19 10/13/19 22:23 00:34 05:11 WBC RBC Hgb Hct MCV MCH MCHC RDW Plt Count MPV Neut % (Auto) Lymph % (Auto) [place] % (Auto) Eos % (Auto) Baso % (Auto) Absolute Neuts (auto) Absolute Lymphs (auto) Absolute Monos (auto) Absolute Eos (auto) Absolute Basos (auto) Absolute Nucleated RBC Nucleated RBC % INR (Anticoag Therapy) APTT Patient Temperature ABG pH ABG pH (Temp Correct) ABG pCO2 ABG pCO2 (Temp Corrct ABG pO2 ABG pO2 (Temp Correct ABG HCO3 ABG O2 Saturation ABG Base Excess Respiration Rate Ventilator Type Vent Mode FiO2 Inspiratory Time PEEP Pressure Support Pressure Control EPAP IPAP BiPAP Sodium Potassium Chloride Carbon Dioxide Anion Gap BUN Creatinine Est GFR ( Amer) Est GFR (Non-Af Amer) BUN/Creatinine Ratio Glucose POC Glucose (mg/dL) 81 110 H Lactic Acid 2.1 H* Calcium Magnesium Total Bilirubin AST ALT Alkaline Phosphatase Troponin I Total Protein Albumin Globulin Albumin/Globulin Ratio Triglycerides Cholesterol LDL Cholesterol HDL Cholesterol Urine Color Urine Appearance Urine pH Ur Specific Hunter Urine Protein Urine Ketones Urine Blood Urine Nitrate Urine Bilirubin Urine Urobilinogen Ur Leukocyte Esterase Urine Glucose Valproic Acid 10/13/19 10/13/19 05:11 05:11 WBC 12.2 H RBC 3.64 L Hgb 11.9 L Hct 35 MCV 96 MCH 33 H MCHC 34 RDW 13 Plt Count 240 MPV 8.0 Neut % (Auto) 73.6 Lymph % (Auto) 15.4 [place] % (Auto) 10.3 Eos % (Auto) 0.1 Baso % (Auto) 0.6 Absolute Neuts (auto) 9.0 H Absolute Lymphs (auto) 1.9 Absolute Monos (auto) 1.3 H Absolute Eos (auto) 0.0 Absolute Basos (auto) 0.1 Absolute Nucleated RBC 0.0 Nucleated RBC % 0.0 INR (Anticoag Therapy) APTT Patient Temperature ABG pH ABG pH (Temp Correct) ABG pCO2 ABG pCO2 (Temp Corrct ABG pO2 ABG pO2 (Temp Correct ABG HCO3 ABG O2 Saturation ABG Base Excess Respiration Rate Ventilator Type Vent Mode FiO2 Inspiratory Time PEEP Pressure Support Pressure Control EPAP IPAP BiPAP Sodium 140 Potassium 3.0 L Chloride 111 Carbon Dioxide 22 Anion Gap 7 BUN 6 Creatinine 0.57 Est GFR ( Amer) 129.2 Est GFR (Non-Af Amer) 106.8 BUN/Creatinine Ratio 10.5 Glucose 81 POC Glucose (mg/dL) Lactic Acid Calcium 7.2 L Magnesium 1.2 L Total Bilirubin AST ALT Alkaline Phosphatase Troponin I Total Protein Albumin Globulin Albumin/Globulin Ratio Triglycerides Cholesterol LDL Cholesterol HDL Cholesterol Urine Color Urine Appearance Urine pH Ur Specific Hunter Urine Protein Urine Ketones Urine Blood Urine Nitrate Urine Bilirubin Urine Urobilinogen Ur Leukocyte Esterase Urine Glucose Valproic Acid 87.0 Imaging: CT brain 10/12: No acute changes, does redemonstrate right frontoparietal encephalomalacia with associated dystrophic calcifications Chest xray 10/12: ETT 1cm above em, lungs are clear Assessment: 63F with known medical history of spontaneous intracerebral hemorrhage 2018, HTN, seizure disorder, presents on 10/12/19 with generalized seizures x 2. She is known to be noncompliant with medications, possibly d/t inability to swallow large pills. The concern is that she was not taking depakote at home and the level was low on arrival. Seizures presented as left gaze deviation and generalized movements. Intubated on admission for airway protection. Started on depakote. - Seizures - encephalomalacia - HTN Plan: Neuro- - Seizures: acute, was not taking depakote at home. She was loaded with 1G and started on 500mg q8hr. EEG was negative. Will transition to depakote sprinkles to ensure she will be able to take her medications at home. - She was switched from keppra to depakote recently d/t intolerance with visual hallucinations. - Will wean off propofol this AM -Delirium prec; avoid BDZ unless ativan needed for seizure activity - Neurology on board [facility]- - BP appears to be within goal. Continue patient's home amlodipine 2.5mg daily -Maintain MAP>65 Resp- - Currently vented, on PS. Patient agitated. Propofol was held and patient eventually woke up and followed commands. Did well on PS with good volumes so patient was extubated. - Tolerating extubation well, only on 2L NC. -Wean Fio2 to keep sat>92% - Aspiration prec, Pulmonary Toilet ID- - Tmax 100.9 overnight but WBC is trending down. Will monitor and dawn culture for temp>101 - Monitor WBC on CBC in AM GI- -Nutrition: Passed bedside swallow eval and started on heart healthy diet -GI prophylaxis no longer needed Renal- -Monitor I/O, replete to keep K>4, Mg>2. Both replaced early this AM - Discontinue vanegas Heme- - DVT prophylaxis with lovenox and SCDs Endo-Maintain BG<200, insulin protocol as needed Musculsk- pressure ulcer prophylaxis. OOB with assist. PT ordered Wounds- none Nutrition- Heart healthy DVT prophylaxis: lovenox and SCDs GI prophylaxis: no longer needed Disposition: Patient requires Critical Care/ICU for respiratory monitoring. Patient will be monitored for a few hours post extubation and then may consider transfer to floor Patient clinical status: Stable Code Status: Full Total Critical Care time is *30 minutes
--- NOTE | 2019-10-13 13:05 | EEG ---
ELECTROENCEPHALOGRAPHY: DATE OF STUDY: 10/13/19 REFERRING PHYSICIAN: Dr. Villanueva. LOCATION: She is in the intensive care unit. CLINICAL PROBLEM: Status epilepticus yesterday in a patient with a prior history of a right hemisphere intracranial hemorrhage. MEDICATIONS: Include: 1. Valproic acid. 2. Amlodipine. 3. Propofol. The patient is intubated. REPORT: This 19-channel EEG is remarkable for background rhythms consisting of diffuse slowing much more prominently from the right hemisphere than the left. There are interspersed sharp waves in both hemispheres without phase reversals and without a following slow wave. Activation procedures are not attempted. There is a suggestion of parasagittal sleep spindles on the left side as opposed to just abundant and asymmetrical beta rhythms. There are no clinical events. CLINICAL IMPRESSION: Abnormal EEG due to generalized slowing of background rhythms most notably from the right hemisphere. This tracing is compatible with diffuse cerebral dysfunction more prominently from the right hemisphere. There are abundant beta rhythms consistent with drug effect. There are no clinical events. [id number]/[facility] #: [id number] [facility]
--- NOTE | 2019-10-13 14:45 | CONS ---
NEUROLOGY CONSULTATION FOLLOWUP: DATE OF CONSULT/FOLLOWUP: 10/13/19 HEAD NECK SURGEON: Nikki Andrea NP LOCATION: She is an inpatient in ICU. CHIEF COMPLAINT: Seizures. INTERVAL HISTORY: Since yesterday, Lara has been successfully extubated. She is up and eating her lunch. She admits to not taking her Depakote regularly and states that she often vomits it up. She states she has no problems eating regular food, but "horse pills". She said she could tell that seizures were coming on and she would get a sense of tingling and tightness of her left arm and leg and her eye would twitch. Currently, she has no complaints and is aware and oriented to her surroundings. MEDICATIONS: Reviewed and she is on: 1. Depakote sprinkles 500 mg p.o. q.8 hours. 2. Magnesium oxide 400 mg p.o. daily. 3. Aspirin 81 mg p.o. daily. 4. Amlodipine 2.5 mg p.o. daily. PHYSICAL EXAM: On limited exam, she is awake and well nourished. She is eating her lunch. Temperature 99.3 core temperature earlier today, blood pressure 112/78, heart rate running close to 100. Speech is clear. She has a spastic left hemiparesis. Language is fluent. Eye movements are full. DIAGNOSTIC STUDIES/LAB DATA: Includes a valproic acid level this morning of 87.0. CBC this morning is notable for still mildly elevated white blood cell count at 12.2, there is a drop in hemoglobin to 11.9. Chemistries are notable for potassium of 3.0 this morning, lactic acid was still elevated this morning at 2.1, calcium 7.2 and magnesium 1.2. She had an EEG earlier today, which I reviewed and which reveals some right hemisphere slowing, which is much improved from yesterday. There are no epileptiform discharges. IMPRESSION: Impression is that of status epilepticus, which is resolved. Etiology is noncompliance. She has been switched to Depakote sprinkles and she states she plans to adhere to her medical regimen. Hopefully, she will be able to discharged home soon and I could see her in followup in my office. [id number]/[facility] #: [id number] [facility] NETWORKDevin
[2019-10-13] MEDS: Divalproex Sprinkle CAP* 125 MG PO SCH ×2 (16:29→23:33)
[2019-10-13] MEDS: Enoxaparin(*) 30 MG/0.3 ML SYR SUBCUT SCH (19:28)
[2019-10-14 07:02] LABS: BUN/Creatinine Ratio 9.5 (8-20); Calcium 8.7 mg/dL (8.6-10.3); EGFR African American 115.1 (>60); EGFR Non-African American 95.1 (>60); Potassium 3.7 mmol/L (3.5-5.0)
[2019-10-14] MEDS: amLODIPine TAB* 5 MG FEED TUBE SCH (07:12)
[2019-10-14] MEDS: Divalproex Sprinkle CAP* 125 MG PO SCH (07:12)
[2019-10-14] MEDS: Magnesium Oxide TAB* 400 MG PO SCH (07:13)
[2019-10-14] MEDS: Lactobacillus Acidophilus* 1 TAB PO SCH (07:13)
[2019-10-14] MEDS: Aspirin EC TAB* 81 MG TAB.EC PO SCH (07:13)
[2019-10-14 07:27] LABS: Hematocrit 37 % (35-47); Hemoglobin 12.8 g/dL (12.0-16.0); Mean Corpuscular HGB Conc 35 g/dL (31-36); Mean Corpuscular Hemoglobin 33 pg (27-31); Mean Corpuscular Volume 95 fL (80-97); Mean Platelet Volume 9.1 fL (7.4-10.4); Platelet Count 230 10^3/uL (150-450); Red Blood Count 3.84 10^6 /uL (3.70-4.87); Red Cell Distribution Width 13 % (10-15); White Blood Count 9.7 10^3/uL (3.5-10.8)
[2019-10-14 09:08] LABS: Magnesium 1.9 mg/dL (1.9-2.7)
[2019-10-14 11:51] VITALS: BP 108/63
--- NOTE | 2019-10-14 14:27 | DS ---
CC: Dr. Durán; Dr. Villanueva; Dr. Lewis, Surgery; Tanja Andrea, CIVIL DRAFTING TECHNICIAN * DISCHARGE SUMMARY: DATE OF ADMISSION: 10/12/19 DATE OF DISCHARGE: To home, 10/14/19. PRIMARY CARE PROVIDER: Dr. Durán. NEUROLOGIST: Dr. Villanueva. DISPOSITION AT DISCHARGE: Home. CONDITION ON DISCHARGE: Stable. DISCHARGE DIAGNOSIS: Status epilepticus with acute respiratory failure requiring intubation. SECONDARY DIAGNOSES: 1. History of left-sided hemiparesis due to intracranial hemorrhage. 2. Subsequent diagnosis of seizures. 3. Hypertension. MEDICATIONS AT DISCHARGE: Include: 1. Depakote sprinkles a total of 500 mg 3 times a day. The patient was prescribed 125 mg capsules, she is supposed to take 4 of them 3 times day. 2. Norvasc 2.5 mg daily. 3. Aspirin 81 mg daily. 4. Acidophilus 1 capsule daily. 5. Magnesium oxide 400 mg daily. 6. Potassium chloride 20 mEq daily. LABORATORY DATA AND STUDIES PERFORMED DURING THE HOSPITAL STAY: On 10/14/19, sodium of 138, potassium 3.7, chloride 105, carbon dioxide 26, BUN 6, creatinine is 0.6. Patient's Depakote level was 87 on 10/13/19. On 10/14/19, white blood cell count of 9.7, hemoglobin 12.8, hematocrit 37, and platelets of 230. EEG that was obtained on 10/13/19, impression: Abnormal EEG due to generalized slowing of background rhythms most notably in the right hemisphere. This tracing is compatible with diffuse cerebral dysfunction, more prominently from the right hemisphere. There are abundant beta rhythms consistent with drug effect. There are no clinical events. Portable chest x-ray obtained on admission, impression: "Endotracheal tube 1 cm off the em. No focal air space opacification." CONSULTATION DURING THE HOSPITAL STAY: Included Dr. Villanueva from Neurology. HOSPITALIZATION COURSE: Lara Nicole is a 63-year-old female with a history of left-sided hemiparesis due to intracranial hemorrhage as well as subsequent development of seizure disorder, who presented to the hospital with status epilepticus, was intubated for respiratory failure and placed in the intensive care unit. She was extubated within the next 24 hours. She was supposed to be on Depakote at home, but her Depakote level at admission was below detectable level. When the patient was able to answer questions after extubation, she noted that she was not able to swallow her pills, so she stopped taking them. The patient was placed back on her Depakote using Depakote sprinkles with good results. Today, her neurologic status is back to her baseline with her chronic left-sided hemiparesis that she is ready to go home. She is recommended to follow up with her primary care provider in 4 to [address] Villanueva in 1 to 2 months. PHYSICAL EXAM AT THE TIME OF DISCHARGE: Blood pressure 108/63, heart rate 69 and regular, respiratory rate 16, oxygen saturation 98% on room air, temperature 98.3. General: The patient is a very pleasant 63-year-old female who is in no acute distress. The patient is alert and oriented x3. HEENT: Head atraumatic, normocephalic. Eyes: Pupils equal and reactive to light and accommodation. Oropharynx clear. Mucosa moist. Neck: Supple. No JVD. No bruits bilaterally. Cardiovascular; Regular rate and rhythm. No murmur. Respiratory: Clear to auscultation bilaterally. Abdomen: Soft, nontender. Bowel sounds present in all 4 quadrants. Extremities: There is no edema. Pulses +2 bilaterally. No clubbing or cyanosis. Neuro Evaluation: Speech clear. Cranial nerves II through XII grossly intact. Motor strength with contracted left upper extremity and decreased motor strength in left lower extremity, which is the patient's baseline hemiparesis. Please note this is a short summary of the patient's hospital stay. Please refer to further medical records for details. TIME SPENT: Approximately 40 minutes was spent on the patient's discharge. [id number]/[facility] #: [id number] [facility]
== END 2019-10-14 13:05 | disposition home or self-care (01) | DRG 53 ==
LOC: ED 13:38 → ICU 15:37 → MED 10-13 15:12
PROVIDERS: ADMIT Surgery Surgical Critical Care; ATTEND Internal Medicine
PROC: 4A00X4Z Measurement of Central Nervous Electrical Activity, External Approach (ICD-10-PCS; principal; 2019-10-12)
PROC: 0BH17EZ Insertion of Endotracheal Airway into Trachea, Via Natural or Artificial Opening (ICD-10-PCS; 2019-10-12)
PROC: 5A1935Z Respiratory Ventilation, Less than 24 Consecutive Hours (ICD-10-PCS; 2019-10-12)
DX: G40.901 Epilepsy, unspecified, not intractable, with status epilepticus (principal); J96.00 Acute respiratory failure, unspecified whether with hypoxia or hypercapnia; I69.154 Hemiplegia and hemiparesis following nontraumatic intracerebral hemorrhage affecting left non-dominant side; I10 Essential (primary) hypertension; G93.89 Other specified disorders of brain; Z87.891 Personal history of nicotine dependence; Z91.14 Patient's other noncompliance with medication regimen; Z79.82 Long term (current) use of aspirin; Z79.899 Other long term (current) drug therapy
CPT/HCPCS: 36415; 70450; 71045; 80048; 80053; 80061; 80164; 81003; 82803; 83605; 83735; 84484; 85025; 85027; 85610; 85730; 87641; 93005; 95819; 95822; 96374; 99285; A9270-GY; J0330; J1650; J2250; J2704; J3475

== ENCOUNTER 2019-12-03 10:53 | Inpatient (IN) | payer MEDICARE, MEDICAID ==
--- NOTE | 2019-12-03 11:05 | ED ---
Complex/Multi-Sys Presentation - HPI Summary HPI Summary: 64 year old F arriving via ambulance to [facility] complains of left hip pain, left arm pain, left shoulder pain s/p mechanical fall last night, and witnessed focal seizure this morning. Patient had mechanical fall last night when transferring from wheelchair. Her wheelchair doesn't have a brake on the left side. When patient attempted to transfer from wheelchair, the wheelchair twisted out from under her and she fell on to the wooden floor and landed on her left hip. 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 She reports left hip pain rated 8/10 in severity, left arm pain, left shoulder pain. She denies left hand pain, left leg pain, back pain, pain on right side. Hx focal seizures secondary to CVA. She takes Divalproex. She took it last night and this morning. Patient had a witnessed focal seizure this morning. She states her eyes started twitching, she could hear her son yelling her name, but she wasn't able to talk. Symptoms aggravated by nothing. Symptoms alleviated by nothing. Medications reviewed. Not on anticoagulants. Allergies noted. - History Of Current Complaint Time Seen by Provider: 12/03/19 10:58 Hx Obtained From: Patient Onset/Duration: Lasting Hours, Still Present - left hip pain, left arm pain, left shoulder pain, Resolved - focal seizure Timing: Constant Severity Currently: Severe - 8/10 Aggravating Factor(s): Nothing Alleviating Factor(s): Nothing - Allergies/Home Medications Allergies/Adverse Reactions: Allergies Allergy/AdvReac Type Severity Reaction Status Date / Time No Known Allergies Allergy Verified 12/03/19 11:06 Home Medications: Home Medications Potassium Chlor TAB* [Potassium Chlor TAB 20 MEQ*] 10 meq PO DAILY 05/06/19 [ History Confirmed 12/03/19] L. Acidophilus/Pectin, [place] [Acidophilus Capsule] 1 cap PO DAILY 10/12/19 [ History Confirmed 12/03/19] Divalproex DR TAB(*) [Depakote DR TAB(*)] 125 mg PO QID 12/03/19 [History Confirmed 12/03/19] Divalproex Sprinkle CAP* [Depakote Sprinkle CAP*] 500 mg PO DAILY 12/03/19 [ History Confirmed 12/03/19] PMH/Surg Hx/FS Hx/Imm Hx Endocrine/Hematology History: Denies: Hx Diabetes Cardiovascular History: Reports: Hx Hypertension, Other Cardiovascular Problems/ Disorders - pt states that she believes she has a heart arhythmia. Denies: Hx Pacemaker/ICD Musculoskeletal History: Reports: Other Musculoskeletal History - Left-sided weakness due to CVA Sensory History: Reports: Hx Contacts or Glasses Denies: Other Sensory Impairments Opthamlomology History: Reports: Hx Contacts or Glasses Denies: Other Sensory Impairments Neurological History: Reports: Hx Seizures, Other Neuro Impairments/Disorders - Intracranial hemmorhage, encephalomalacia - Surgical History Surgery Procedure, Year, and Place: APPENDECTOMY 2011 [facility]. ELBOW FX Hx Anesthesia Reactions: No Infectious Disease History: Denies: Hx of Known/Suspected MRSA, Hx Shingles, Hx Tuberculosis - Family History Known Family History: Positive: Other - [place] - Social History Alcohol Use: Rare Alcohol Amount: 2-3/WEEK Hx Substance Use: Yes Substance Use Type: Reports: Marijuana - occasionally Hx Tobacco Use: Yes Smoking Status (MU): Former Smoker Type: Cigarettes Have You Smoked in the Last Year: No Review of Systems Positive: Other - left hip pain, left arm pain, left shoulder pain; NEG: left hand pain, left leg pain, back pain, pain on right side Neurological/Mental Status: Other - focal seizure All Other Systems Reviewed And Are Negative: Yes Physical Exam - Summary Physical Exam Summary: Constitutional: Well-developed, Well-nourished, Alert. (-) Distressed Skin: Warm, Dry HENT: Normocephalic; Atraumatic Eyes: Conjunctiva normal Neck: Musculoskeletal ROM normal neck. (-) JVD, (-) Stridor, (-) Nuchal rigidity Cardio: Rhythm regular, rate normal, Heart sounds normal; Intact distal pulses; Radial pulses are 2+ and symmetric. (-) Murmur Pulmonary/Chest wall: Effort normal. (-) Respiratory distress, (-) Wheezes, (-) Rales Abd: Soft, (-) tenderness, (-) Distension, (-) Guarding, (-) Rebound Musculoskeletal: She has left upper and lower extremities contractures; She has tenderness of the left hip; No tenderness of distal femur tibula fibula; Abrasion of posterior left shoulder with minimal underlying tenderness Lymph: (-) Cervical adenopathy Neuro: Alert, Oriented x3 Psych: Mood and affect Normal Triage Information Reviewed: Yes Vital Signs Reviewed: Yes Procedures - Sedation Patient Received Moderate/Deep Sedation with Procedure: No Diagnostics - Laboratory Lab Statement: Any lab studies that have been ordered have been reviewed, and results considered in the medical decision making process. - Radiology FEMUR X-RAY Radiology Interpretation Completed By: Radiologist - IMPRESSION: Fracture of the left femoral neck and overriding of the fracture fragments. I cannot totally exclude fracture of the distal femur. ED physician has reviewed this imaging report. LEFT HIP/Pelvis x-ray Radiology Interpretation Completed By: Radiologist - IMPRESSION: Left femoral neck fracture with overriding of the fracture fragments. ED physician has reviewed this imaging report. LEFT SHOULDER x-ray Radiology Interpretation Completed By: Radiologist - IMPRESSION: Old fracture of the distal left clavicle with slight deformity. No definite new fracture is identified. ED physician has reviewed this imaging report. Re-Evaluation - Re-Evaluation First Eval Re-Evaluation Time: 13:12 - Dr. Jenkins is in the OR. Left a message with Dr. Jenkins's nurse about patient. Complex Multi-Symp Course/Dx Course Of Treatment: 64 y/o F p/w L hip pain after fall. - exam w shortened and rotated LLE, pain at hip. XR w femoral neck fr. No TL tenderness. Abrason to L posterior shoulder. - orthopedics consulted, admit to medicine. - Diagnoses Provider Diagnoses: Fracture of femoral neck, left - Physician Notifications Discussed Care Of Patient With: Elisa Cordero - Agrees to admit Time Discussed With Above Provider: 13:15 Discharge ED - Sign-Out/Discharge Documenting (check all that apply): Patient Departure - Discharge Plan Condition: Stable Disposition: ADMITTED TO [facility] Referrals: Fozia Silva MD [Primary Care Provider] - - Billing Disposition and Condition Condition: STABLE Disposition: Admitted to [facility] - Attestation Statements Document Initiated by Scribe: Yes Documenting Scribe: Macey oconnor Provider For Whom Scribe is Documenting (Include Credential): Danna Seo MD Scribe Attestation: Macey Ferguson, scribed for Danna Seo MD on 12/03/19 at 1319. Scribe Documentation Reviewed: Yes Provider Attestation: The documentation as recorded by the scribe, Macey oconnor accurately reflects the service I personally performed and the decisions made by me, Danna Seo MD Status of Scribe Document: Viewed
[2019-12-03] MEDS ORDERED: oxyCODONE/Acetamin 5/325 MG* TAB PO ONE (12:50)
[2019-12-03 14:23] LABS: Hematocrit 34 % (35-47); Hemoglobin 11.7 g/dL (12.0-16.0); Mean Corpuscular HGB Conc 35 g/dL (31-36); Mean Corpuscular Hemoglobin 33 pg (27-31); Mean Corpuscular Volume 94 fL (80-97); Mean Platelet Volume 7.7 fL (7.4-10.4); Platelet Count 312 10^3/uL (150-450); Red Blood Count 3.57 10^6 /uL (3.70-4.87); Red Cell Distribution Width 14 % (10-15); White Blood Count 12.9 10^3/uL (3.5-10.8)
[2019-12-03] MEDS ORDERED: Morphine INJ* 2 MG/ML 1 ML SYRINGE (TWO MG - NEW SYRINGE VERSION) IV PRN (14:33)
[2019-12-03] MEDS ORDERED: Al Hydrox/Mg Hydrox/Simet LIQ* 30 ML UDC PO PRN (14:33)
[2019-12-03] MEDS ORDERED: Ondansetron INJ* 2 MG/ML VIAL IV PRN (14:33)
[2019-12-03 14:38] LABS: Albumin 3.9 g/dL (3.2-5.2); Albumin/Globulin Ratio 1.6 (1-3); Calcium 9.1 mg/dL (8.6-10.3); EGFR African American 137.1 (>60); EGFR Non-African American 113.3 (>60); Globulin 2.5 g/dL (2-4); Potassium 3.6 mmol/L (3.5-5.0); Total Bilirubin 0.4 mg/dL (0.2-1.0); Total Protein 6.4 g/dL (6.4-8.9)
[2019-12-03 14:42] LABS: Activated Partial Thrombo Time 31.9 seconds (26.0-38.0); INR 1.05 (0.82-1.09)
[2019-12-03] MEDS ORDERED: NS 0.9% 1000 ML** 1,000 ML IV SCH (14:45)
[2019-12-03 14:47] LABS: ABS Monocytes 2.1 10^3/ul (0-0.8); ABS Neutrophils 9.8 10^3/ul (1.5-7.7); Lymphocyte % 7.7 %
--- NOTE | 2019-12-03 16:36 | HP ---
CC: Dr. Silva * HISTORY AND PHYSICAL: DATE OF ADMISSION: 12/03/19 ATTENDING PHYSICIAN WHILE IN THE HOSPITAL: Dr. Elisa Cordero * (dictated by ALONZO Daniels). PRIMARY CARE PROVIDER: Dr. Silva. CHIEF COMPLAINT: Fall and left hip pain. 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 The patient at baseline uses a dali walker to ambulate, but at times uses a wheelchair simply for convenience. She has left-sided hemiparesis, but still has minimal mobility of her left lower extremity and uses a brace with ambulation. She has contractures of both her left upper and left lower extremities. She was getting into bed last night from the wheelchair and notes that her break has been broken on her wheelchair and it slipped out from under her and she fell. She denies head trauma or loss of consciousness. Her son who she lives with helped her into bed, but the left hip pain continued overnight and she had difficulty sleeping. Because the pain was still continued this morning, she presented to the emergency department. She does have paresthesias of her left upper and left lower extremities at baseline and has not noted any changes since the fall. She denies new weakness or cold extremity. She feels since coming to the emergency department and receiving a dose of oxycodone that her pain is more well controlled now that she is not moving. She additionally denies chest pain, difficulty breathing, abdominal pain, vomiting, or diarrhea. She did feel nauseous due to pain earlier, but this has resolved with pain control. She additionally denies fever , chills, or cough. The patient was feeling left-sided shoulder pain yesterday after her fall as she did land on her left shoulder; however, this has resolved today. She does not have any mobility of the left shoulder at baseline related to her hemiparesis and contracture. PAST MEDICAL HISTORY: 1. Hemorrhagic CVA in 2018 with residual left-sided hemiparesis, ambulates with a dali walker at baseline. 2. Seizure disorder, with recent status epilepticus admission requiring intubation due to poor adherence to her home medication. 3. Hypertension. 4. GERD. PAST SURGICAL HISTORY: 1. Left elbow fracture repair. 2. Appendectomy. HOME MEDICATIONS: 1. Depakote Sprinkle capsule 500 mg p.o. t.i.d. 2. Potassium chloride 10 mEq p.o. daily. 3. Acidophilus capsule 1 cap p.o. daily. ALLERGIES: No known drug allergies. FAMILY HISTORY: Mother had a history of breast cancer. Father had a history of esophageal cancer. 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 She lives with her son, Jt Nicole, who is also her healthcare proxy. His phone number is [phone]. She was never a smoker. She denies alcohol use and she smokes marijuana approximately twice per week. REVIEW OF SYSTEMS: An 11-point review of systems was completed and all pertinent positives and negatives are above in the HPI. All other systems were negative. PHYSICAL EXAMINATION GENERAL: A thin, elderly white female, lying in hospital bed, appearing comfortable, in no acute distress. VITAL SIGNS: Temperature 99.4; pulse 82; respiratory rate 18; oxygen saturation 98% on room air; and blood pressure 141/97, later 120/88. HEENT: Eyes: PERRL. Sclerae anicteric. ENT: Mucous membranes moist. LUNGS: Clear to auscultation throughout. CARDIO: Regular rate and rhythm without murmurs, rubs, or gallops. Dorsalis pedis pulses intact bilaterally. ABDOMEN: Soft, nontender, nondistended. EXTREMITIES: No clubbing, cyanosis, or edema. Contracture to the left knee, left wrist, and left elbow. NEURO: The patient's dorsiflexion and plantarflexion are approximately 1/5 on the left side and 5/5 on the right side, which the patient reports is her baseline. Sensation is diminished on the left side, which is baseline as well. Alert and oriented x3. SKIN: Warm, dry, and intact. DIAGNOSTIC STUDIES/LAB DATA: White blood cell count 12.9, hemoglobin 11.7, hematocrit 34, platelet count 312. INR 1.05, PTT 31.9. Sodium 129, potassium 3.6, chloride 94, carbon dioxide 25, anion gap 10, BUN 7, creatinine 0.54, glucose 105. LFTs unremarkable. Valproic acid level 149. Left femur x-ray, impression: Fracture of the left femoral neck and overriding of the fracture fragments. Cannot totally exclude fracture of the distal femur. Hip/pelvis x-ray: Left femoral neck fracture with overriding of the fracture fragments. Left shoulder x-ray: Old fracture of the distal left clavicle with slight deformity. No definite new fracture is identified. ASSESSMENT AND PLAN: Lara Nicole is a 64-year-old white female with past medical history significant for hemorrhagic cerebrovascular accident with residual left- sided hemiparesis, seizure disorder, hypertension, gastroesophageal reflux disease, who presents to the emergency department today due to left-sided hip pain after a mechanical fall. She will be admitted for: 1. Left femoral neck fracture. This appears to be result of the trauma from a mechanical fall. The patient has fair pain control at this time. It is difficult to assess if she is having any paresthesias or anesthesias considering her baseline paresthesia and she is vascularly intact in the left lower extremity. Her left femoral neck fracture is demonstrated on her femur x- ray. Dr. Jenkins of the orthopedic service has been consulted. She has not yet evaluated the patient, but CT of the hip is pending for her review as well. At this point, I believe the patient is medically optimized for surgery, though I am awaiting chest x-ray to ensure there has been no rib trauma from her fall and she has no complaints. 2. Leukocytosis. The patient has a mild leukocytosis. Given that she will be pursuing surgery, I do want to ensure there is no infection and chest x-ray is pending as I previously mentioned and I will order a UA. I believe this is likely related to the stress of her suffering a fall and I anticipate for this to improve and we will follow. 3. Hypertension. The patient previously was taking amlodipine, but she tells me she has not taken it for quite some time. She is minimally hypertensive in the emergency department; however, I believe this is related to pain and I anticipate she will not need any medications for this. This has already resolved at this point. 4. Gastroesophageal reflux disease. The patient no longer takes medications for this at home. 5. Seizure disorder. The patient did take her Depakote this morning. I will continue this while she is in the hospital. Her Depakote level is therapeutic. 6. DVT prophylaxis: The patient has a DVT risk score of 2. I will hold off on chemoprophylaxis at this time and order SCDs considering that Dr. Jenkins may be proceeding to surgery today; however, I am still awaiting her evaluation of the patient to determine this. 7. Code status: The patient is full code. 8. Early discharge planning: I anticipate that this patient is likely to require subacute rehab after this procedure and PT/OT will be ordered after her surgery is complete. This case has been reviewed by my attending, Dr. Elisa Cordero, and she agrees with this plan of care. ALONZO DANIELS [id number]/[facility] #: [id number] MTDD
[2019-12-03] MEDS ORDERED: Divalproex DR TAB(*) 125 MG PO SCH (17:00)
--- NOTE | 2019-12-03 20:20 | CONS ---
ORTHOPEDIC CONSULT NOTE: DATE OF CONSULT: 12/03/19 Thank you for this orthopedic consultation. CHIEF COMPLAINT: Left hip pain. HISTORY OF PRESENT ILLNESS: Ms. Nicole is a 64-year-old female who presented to the emergency room this morning after a mechanical fall yesterday. The patient had a fall out of her wheelchair last evening. This morning, she had continued severe 8/10 pain in the left hip. Any motion of the hip caused her increased pain. She was brought to [facility] and x-ray showed fracture of the proximal left femur. The patient reports that the pain medication is helping her. The patient's baseline is significant for hemorrhagic CVA in 2018 with a residual left-sided hemiparesis and seizure disorder. She uses a dali walker to ambulate. She has complete left-sided hemiparesis, but is able to use her left side for some weightbearing. She has contractures of both the upper and lower extremities. She has a wheelchair as well in her home. PAST MEDICAL HISTORY: Hemorrhagic CVA in 2018 with residual left-sided hemiparesis, seizure disorder, hypertension, GERD. PAST SURGICAL HISTORY: Left elbow fracture ORIF, appendectomy. HOME MEDICATIONS: 1. Depakote 500 mg p.o. t.i.d. 2. Potassium chloride 10 mEq p.o. daily. 3. Acidophilus 1 cap p.o. daily. ALLERGIES: No known drug allergies. FAMILY HISTORY: Maternal, breast cancer. Paternal, esophageal cancer. 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 She lives with her son, Jt Nicole, who is her healthcare proxy, phone number [phone]. No tobacco. She does use alcohol and smokes marijuana twice a week. Normally ambulates with a dali walker short distances or uses a wheelchair. REVIEW OF SYSTEMS: Fourteen systems reviewed with the patient today, positive for left hip pain, recent fall, left-sided weakness, left-sided contracture. Otherwise, the patient reports review of systems is negative or not relevant. PHYSICAL EXAM: General: The patient is a thin female, in no apparent distress , alert and oriented x3, pleasant mood and appropriate affect. Gait is not assessed. Vitals: Temperature 99.2, heart rate 81, blood pressure 130/74. HEENT: Atraumatic, normocephalic. Pupils equal and reactive to light. Heart: S1 and S2. Lungs: Clear to auscultation in all lung schmidt without wheezes, rubs, or rhonchi. Abdomen: Soft, nontender, nondistended. Left upper extremity showed significant contracture. She reports intact sensation, but has no active motion. Left lower extremity: The patient's skin is intact. She has muscle spasms and pain involving any motion of the left leg. She does have contracture at the ankle, knee, and hip with about 20 degrees flexion at the hip, 20 degrees flexion at the knee, and plantarflexion of about 25 degrees at the ankle. She reports full sensation to light touch, 2+ palpable DP pulse. DIAGNOSTIC STUDIES/LAB DATA: Labs from today show white blood cells elevated at 12.9, hematocrit 34, platelets 312. INR 1.05. Sodium 129, potassium 3.6, chloride 94. Valproic acid 149. Shoulder x-ray shows no obvious acute fracture. Hip and femur films are hard to view. She has an obvious fracture of the proximal femur. I am unsure whether this is at femoral neck or inter troch. Pelvic CT shows its a low femoral neck. There does appear to be some involvement of the greater trochanter. I see no obvious intertrochanteric or subtrochanteric extension. ASSESSMENT AND PLAN: Ms. Nicole is a 64-year-old female status post cerebrovascular accident with left hemiparesis. She is status post fall with a left proximal femur fracture. Today, the patient and I discussed the operative and nonoperative treatment options. She would like to proceed with operative intervention because of pain. The patient has limited mobility and does put some minimal weight on the left side to ambulate with a dali walker. She would like to continue this. We discussed 3 surgical options. We discussed Girdlestone procedure versus hip hemiarthroplasty and reconstruction of the proximal femur versus intramedullary nail. At this point, I would recommend attempt at a reconstruction procedure for the left hip. This may necessitate a reconstruction stem and greater trochanteric claw plate. We discussed the risks of surgery include but are not included to: bleeding, infection, damage to nearby structures, intraoperative fracture, failure of the hardware, failure of the bone to heal, dislocation, leg length discrepancy, anesthesia risks, stroke, heart attack, blood clot and . Her risks are increased for dislocation and failure to heal because of her hemiparesis and bone quality. The patient would like to discuss her options with her son. She is cleared by the medical team for surgery. She will be n.p.o. after midnight. We will plan on surgical intervention tomorrow. I am awaiting the urinalysis as she does have leukocytosis. She should be on bed rest with p.r.n. analgesia and muscle relaxer. [id number]/[facility] #: [id number] CHRIS
[2019-12-03] MEDS: Morphine INJ* 2 MG/ML 1 ML SYRINGE (TWO MG - NEW SYRINGE VERSION) IV PRN (21:15)
[2019-12-03] MEDS: Divalproex Sprinkle CAP* 125 MG PO SCH (21:21)
[2019-12-04] MEDS: Morphine INJ* 2 MG/ML 1 ML SYRINGE (TWO MG - NEW SYRINGE VERSION) IV PRN ×2 (03:21→13:06)
[2019-12-04 03:41] LABS: Urine Appearance Clear; Urine Bilirubin Negative (Negative); Urine Blood Negative (Negative); Urine Color Yellow; Urine Glucose Negative (Negative); Urine Ketones 1+ (Negative); Urine Nitrite Negative (Negative); Urine Protein Negative (Negative); Urine Specific Gravity 1.006 (1.010-1.030); Urine Urobilinogen Negative (Negative)
[2019-12-04 05:54] LABS: Hematocrit 34 % (35-47); Hemoglobin 11.7 g/dL (12.0-16.0); Mean Corpuscular HGB Conc 35 g/dL (31-36); Mean Corpuscular Hemoglobin 33 pg (27-31); Mean Corpuscular Volume 95 fL (80-97); Mean Platelet Volume 7.9 fL (7.4-10.4); Platelet Count 289 10^3/uL (150-450); Red Blood Count 3.54 10^6 /uL (3.70-4.87); Red Cell Distribution Width 14 % (10-15); White Blood Count 9.8 10^3/uL (3.5-10.8)
[2019-12-04 05:56] LABS: ABS Lymphocytes 1.1 10^3/ul (1.0-4.8); ABS Neutrophils 6.7 10^3/ul (1.5-7.7); Eosinophil % 0.1 %; Lymphocyte % 10.8 %
[2019-12-04 06:13] LABS: BUN/Creatinine Ratio 11.5 (8-20); Calcium 9.4 mg/dL (8.6-10.3); EGFR African American 119.1 (>60); EGFR Non-African American 98.4 (>60); Potassium 3.8 mmol/L (3.5-5.0)
[2019-12-04] MEDS ORDERED: NS 0.9% 1000 ML** 1,000 ML IV SCH (08:45)
[2019-12-04] MEDS ORDERED: Divalproex Sprinkle CAP* 125 MG PO SCH (09:00)
--- NOTE | 2019-12-04 09:01 | PN ---
Subjective Date of Service: 12/04/19 Interval History: Ms. Nicole is feeling better today. Pain is minimal and very manageable as long as she is not moving the LLE, but with movement, pain can get up to 8/10. At this point, she is comfortable, but does have a sensation that her leg is sliding down/off the bed (it is not). Sensation is at baseline for the patient. Denies CP, SOB, cough, N/V. No concerns from nursing. Family History: Unchanged from Admission Social History: Unchanged from Admission Past Medical History: Unchanged from Admission Objective Active Medications: Al Hydrox/Mg Hydrox/Simethicone (Maalox Plus*) 30 ml PO Q6H PRN INDIGESTION Divalproex Sodium (Depakote Sprinkle Cap*) 500 mg PO TID TIMA Sodium Chloride (Ns 0.9% 1000 Ml) 1,000 mls @ 75 mls/hr IV PER RATE TIMA Morphine Sulfate (Morphine Inj (Syringe))*) 2 mg IV Q3H PRN PAIN - MILD Ondansetron HCl (Zofran Inj*) 4 mg IV Q4H PRN NAUSEA/VOMITING Senna (Senokot 8.6 Mg Tab*) 1 tab PO BID PRN CONSTIPATION Vital Signs - 8 hr 12/04/19 12/04/19 12/04/19 03:21 03:46 04:25 Temperature 99.5 F Pulse Rate 78 Respiratory 16 16 16 Rate Blood Pressure 127/81 (mmHg) O2 Sat by Pulse 96 Oximetry 12/04/19 07:36 Temperature 98.1 F Pulse Rate 78 Respiratory 16 Rate Blood Pressure 129/89 (mmHg) O2 Sat by Pulse 95 Oximetry Oxygen Devices in Use Now: None Appearance: Middle-aged female lying in bed in NAD Ears/Nose/Mouth/Throat: Mucous Membranes Moist Neck: NL Appearance and Movements; NL JVP, Trachea Midline Respiratory: Symmetrical Chest Expansion and Respiratory Effort, Clear to Auscultation Cardiovascular: NL Sounds; No Murmurs; No JVD, RRR Abdominal: NL Sounds; No Tenderness; No Distention Extremities: - - Mild nonpitting LLE Neurological: Alert and Oriented x 3 Lines/Tubes/Other Access: Clean, Dry and Intact Peripheral IV Nutrition: Taking PO's Result Diagrams: 12/04/19 05:30 12/04/19 05:30 Assess/Plan/Problems-Billing Assessment: Ms. Nicole is a 64 yo F with PMH of hemorrhagic CVA with residual left hemiparesis, seizures, HTN; presented with c/o left hip pain after a fall and was found to have a left femoral neck fracture. - Patient Problems (1) Closed left hip fracture Code(s): S72.002A - FRACTURE OF UNSP PART OF NECK OF LEFT FEMUR, INIT Comment : - Secondary to mechanical fall at home while getting into wheelchair - Xray on admission showing left femoral neck fracture - Appreciate Ortho consult - Medically optimized for surgery - Continue morphine (2) Leukocytosis Code(s): D72.829 - ELEVATED WHITE BLOOD CELL COUNT, UNSPECIFIED Comment: - Present on admission, now resolved - Suspect this was reactive post fall (3) Seizure disorder Code(s): G40.909 - EPILEPSY, UNSP, NOT INTRACTABLE, WITHOUT STATUS EPILEPTICUS Comment: - Continue Depakote (4) History of hemorrhagic cerebrovascular accident (CVA) with residual deficit Code(s): I69.30 - UNSPECIFIED SEQUELAE OF CEREBRAL INFARCTION Comment: - Residual left-sided hemiparesis (5) DVT prophylaxis Code(s): Z29.9 - ENCOUNTER FOR PROPHYLACTIC MEASURES, UNSPECIFIED Comment: - SCDs (6) Full code status Code(s): Z78.9 - OTHER SPECIFIED HEALTH STATUS Comment: Status and Disposition: Inpatient. Anticipate d/c home vs [facility] when medically stable. Attending: Kizzy Barber
[2019-12-04] MEDS: Divalproex Sprinkle CAP* 125 MG PO SCH ×3 (09:47→22:40)
[2019-12-04] MEDS ORDERED: Buffered Lidocaine 1% SYRIN* 1 ML/SYRINGE INTRADERM ONE ×2 (13:58→14:42)
[2019-12-04] MEDS ORDERED: Acetaminophen TAB* 325 MG PO ONE (13:58)
[2019-12-04] MEDS ORDERED: celeCOXIB CAP* 200 MG PO ONE (13:58)
[2019-12-04] MEDS ORDERED: Naloxone* 0.4 MG/ML 1 ML VIAL IV PRN (13:59)
[2019-12-04] MEDS ORDERED: celeCOXIB CAP* 200 MG ONE (14:48)
[2019-12-04] MEDS ORDERED: Acetaminophen TAB* 325 MG ONE (14:48)
[2019-12-04] MEDS ORDERED: Bupivacaine 0.5%* 50 ML MDV VIAL ONE (15:42)
[2019-12-04] MEDS ORDERED: Bupivacaine 0.25% SDV* 30 ML ONE (15:44)
[2019-12-04] MEDS ORDERED: ceFAZolin 2 GM PREMIX in ORs 2 GM/50 ML BAG ONE (15:45)
[2019-12-04] MEDS ORDERED: Ondansetron INJ* 2 MG/ML VIAL ONE (16:44)
[2019-12-04] MEDS ORDERED: Dexamethasone IV* 4 MG/ML 1 ML (4 MG) ONE (16:44)
[2019-12-04] MEDS ORDERED: Lidocaine 2% PF * 5 ML VIAL ONE (16:44)
[2019-12-04] MEDS ORDERED: Propofol* 500 MG/50 ML BTL ONE (16:44)
[2019-12-04] MEDS ORDERED: Bupivacaine 0.5% SDV PF* 30ML VIAL ONE (16:44)
[2019-12-04] MEDS ORDERED: Morphine INJ* 2 MG/ML 1 ML SYRINGE (TWO MG - NEW SYRINGE VERSION) IV PRN (18:47)
[2019-12-04] MEDS ORDERED: oxyCODONE/Acetamin 5/325 MG* TAB PO PRN ×2 (18:52)
[2019-12-04] MEDS: Lactated Ringers 1000 ML Bag* 1,000 ML IV SCH (22:40)
[2019-12-04] MEDS: Acetaminophen TAB* 325 MG PO PRN (22:44)
[2019-12-05] MEDS: ceFAZolin 1 GM* X 3 DOSES POST-OP Q8H (AddVan) IVPB SCH ×6 (00:50→17:16)
[2019-12-05 05:40] LABS: Hematocrit 27 % (35-47); Hemoglobin 9.8 g/dL (12.0-16.0); Mean Corpuscular HGB Conc 36 g/dL (31-36); Mean Corpuscular Hemoglobin 34 pg (27-31); Mean Corpuscular Volume 95 fL (80-97); Mean Platelet Volume 7.6 fL (7.4-10.4); Platelet Count 243 10^3/uL (150-450); Red Blood Count 2.87 10^6 /uL (3.70-4.87); Red Cell Distribution Width 13 % (10-15); White Blood Count 10.6 10^3/uL (3.5-10.8)
[2019-12-05 05:42] LABS: ABS Lymphocytes 0.6 10^3/ul (1.0-4.8); ABS Monocytes 1.8 10^3/ul (0-0.8); ABS Neutrophils 8.2 10^3/ul (1.5-7.7); Lymphocyte % 5.9 %
[2019-12-05 05:57] LABS: BUN/Creatinine Ratio 11.8 (8-20); Calcium 8.9 mg/dL (8.6-10.3); EGFR African American 146.4 (>60); Potassium 3.7 mmol/L (3.5-5.0)
[2019-12-05] MEDS: Acetaminophen TAB* 325 MG PO PRN (06:01)
[2019-12-05] MEDS: Lactated Ringers 1000 ML Bag* 1,000 ML IV SCH (06:58)
[2019-12-05] MEDS ORDERED: oxyCODONE TAB* 5 MG TAB PO PRN (08:09)
[2019-12-05] MEDS: oxyCODONE TAB* 5 MG TAB PO PRN ×2 (08:57→20:07)
[2019-12-05] MEDS: Apixaban* 2.5 MG TAB PO SCH ×2 (08:58→20:07)
[2019-12-05] MEDS: Divalproex Sprinkle CAP* 125 MG PO SCH ×3 (09:12→20:08)
--- NOTE | 2019-12-05 10:01 | OP ---
DATE OF OPERATION: 12/04/19 - ROOM #335 DATE OF : 53 ATTENDING SURGEON: Maritza Jenkins MD. TITLE I PARAPROFESSIONAL: ALONZO Leger. Ms. Davies did help throughout the procedure with preparation of the leg, wound retraction, manipulation of the hip , and wound closure. ANESTHESIOLOGIST: Dr. Gibson. ANESTHESIA TYPE: General. PRE-OP DIAGNOSIS: Left proximal femur fracture with displacement and comminution. POST-OP DIAGNOSIS: Left proximal femur fracture with displacement and comminution. OPERATIVE PROCEDURE: Left Girdlestone procedure or femoral head excision. ESTIMATED BLOOD LOSS: 200 cc. COMPLICATIONS: None. SPECIMEN: Femoral head and proximal femur bone fragment sent to Pathology. BRIEF HISTORY/INDICATION: Ms. Nicole is a 64-year-old female with baseline left-sided hemiparesis and contracture from a CVA in 2018. The patient had a fall in her home on 12/02/19. She continued to have severe pain on 12/03/19, and was brought to the [facility] Emergency Room where she was found to have a left proximal femur fracture. This was a low femoral neck/high intertrochanteric proximal femur fracture. The patient and I discussed different surgical options including intramedullary nail or a proximal femur reconstruction and hemiarthroplasty. We also discussed the possible Girdlestone procedure because of the patient's contracture and hemiparesis. The patient and her family were well educated on their surgical options and they chose to have a Girdlestone procedure. They understood the risks of the surgery included, but were not limited to bleeding, infection, damage to nearby structures, continued pain, need for further surgery, shortening of the leg, contracture of the hip joint, limited ability to ambulate, anesthesia complications, stroke, heart attack, blood clot, and . They wished to proceed. INTRAOPERATIVE FINDINGS: Intraoperatively, the patient had a low femoral neck/ high intertrochanteric fracture. The calcar was comminuted with small bony fragments. The bone quality was quite poor and osteopenic. DESCRIPTION OF PROCEDURE: Ms. Nicole was identified in the preanesthesia unit. Her left lower extremity was marked as the correct operative side. Informed consent was signed and placed in the chart. The patient was taken to the operating room and placed under anesthesia. She was placed in the right lateral decubitus position on the pegboard. Left lower extremity was prepped and draped in the usual sterile fashion. Preop time-out was made to correctly identify the patient's side and site. Appropriate perioperative antibiotics were given within 1 hour of incision. A 7 cm posterolateral hip incision was made with a 10-blade and carried down to the lateral fascia. New 10-blade was used to make an incision in the lateral fascia in line with the skin incision. Charnley retractor was placed. A single flap of the capsule and piriformis tendon was elevated off the posterolateral femur using electrocautery. This was tagged with four #5 Ethibond sutures. The proximal femoral fracture was easily visualized at this point. There was extensive comminution and displacement. The proximal femur was presented and rongeur was used to smooth the edge of the intertrochanteric fracture line. The calcar was comminuted and these bone fragments were removed. It was noted that the patient had extreme osteopenia. The femur was carefully retracted anteriorly. Corkscrew and skid were used to remove the femoral head and neck. The hip joint was copiously irrigated with sterile saline. The previously tagged tendons and capsule were reapproximated to the posterolateral femur. The wound was copiously irrigated with sterile saline. The lateral fascial layer was closed using interrupted #1 Vicryl. The rest of the incision was closed in a layered fashion using 0 and 2-0 Vicryl. Skin was closed using running 3-0 Monocryl and Dermabond. Sterile Adaptic, 4x4s , and paper tape were used to cover the incision. The patient's anesthesia was reversed without difficulty. She was taken to the PACU in stable condition. Intended weight-bearing will be weightbearing as tolerated. Intended DVT prophylaxis will be Eliquis or Lovenox. [id number]/[facility] #: [id number] [facility] CENTERDevin
--- NOTE | 2019-12-05 10:04 | PN ---
Subjective Date of Service: 12/05/19 Interval History: Ms. Nicole is feeling better today. Pain is overall improved postop, different than the pain she had before surgery. Hoping to get into [facility] for rehab. Denies CP, SOB, cough, N/V. Good appetite. No concerns from nursing. Family History: Unchanged from Admission Social History: Unchanged from Admission Past Medical History: Unchanged from Admission Objective Active Medications: Acetaminophen (Tylenol Tab*) 650 mg PO Q4H PRN PAIN - MILD Al Hydrox/Mg Hydrox/Simethicone (Maalox Plus*) 30 ml PO Q6H PRN INDIGESTION Apixaban (Eliquis*) 2.5 mg PO BID TIMA Divalproex Sodium (Depakote Sprinkle Cap*) 500 mg PO TID TIMA Lactated Ringer's (Lactated Ringers 1000 Ml Bag*) 1,000 mls @ 125 mls/hr IV PER RATE TIMA Cefazolin Sodium 1 gm/ Sodium (Chloride) 50 mls @ 200 mls/hr IVPB Q8H TIMA Morphine Sulfate (Morphine Inj (Syringe))*) 2 mg IV Q2H PRN PAIN - SEVERE Ondansetron HCl (Zofran Inj*) 4 mg IV Q4H PRN NAUSEA/VOMITING Oxycodone HCl (Roxycodone Tab*) 5 mg PO Q6H PRN PAIN - MODERATE Oxycodone HCl (Roxycodone Tab*) 10 mg PO Q6H PRN PAIN - SEVERE Senna (Senokot 8.6 Mg Tab*) 1 tab PO BID PRN CONSTIPATION Vital Signs - 8 hr 12/05/19 12/05/19 12/05/19 03:29 06:05 07:26 Temperature 98 F 98.4 F Pulse Rate 77 78 Respiratory 20 17 Rate Blood Pressure 108/70 122/81 (mmHg) O2 Sat by Pulse 93 93 97 Oximetry Oxygen Devices in Use Now: None Appearance: Middle-aged female sitting in bed in NAD Ears/Nose/Mouth/Throat: Mucous Membranes Moist Neck: NL Appearance and Movements; NL JVP, Trachea Midline Respiratory: Symmetrical Chest Expansion and Respiratory Effort, Clear to Auscultation Cardiovascular: NL Sounds; No Murmurs; No JVD, RRR Abdominal: NL Sounds; No Tenderness; No Distention Extremities: - - Mild nonpitting LLE Skin: - - Surgical dressing LLE Neurological: Alert and Oriented x 3, NL Sensation Lines/Tubes/Other Access: Clean, Dry and Intact Peripheral IV Nutrition: Taking PO's Result Diagrams: 12/05/19 05:35 12/05/19 05:35 Assess/Plan/Problems-Billing Assessment: Ms. Nicole is a 64 yo F with PMH of hemorrhagic CVA with residual left hemiparesis, seizures, HTN; presented with c/o left hip pain after a fall and was found to have a left femoral neck fracture. - Patient Problems (1) Closed left hip fracture Code(s): S72.002A - FRACTURE OF UNSP PART OF NECK OF LEFT FEMUR, INIT Comment : - POD #1 - Secondary to mechanical fall at home while getting into wheelchair - Xray on admission showing left femoral neck fracture - Ortho following - Continue morphine, oxycodone, Tylenol (2) Leukocytosis Code(s): D72.829 - ELEVATED WHITE BLOOD CELL COUNT, UNSPECIFIED Comment: - Present on admission, now resolved - Suspect this was reactive post fall (3) Seizure disorder Code(s): G40.909 - EPILEPSY, UNSP, NOT INTRACTABLE, WITHOUT STATUS EPILEPTICUS Comment: - Continue Depakote (4) History of hemorrhagic cerebrovascular accident (CVA) with residual deficit Code(s): I69.30 - UNSPECIFIED SEQUELAE OF CEREBRAL INFARCTION Comment: - Residual left-sided hemiparesis (5) DVT prophylaxis Code(s): Z29.9 - ENCOUNTER FOR PROPHYLACTIC MEASURES, UNSPECIFIED Comment: - Eliquis per Ortho (6) Full code status Code(s): Z78.9 - OTHER SPECIFIED HEALTH STATUS Comment: Status and Disposition: Inpatient. Will need VIDHI. Pending PMRU referral. Attending: Elisa Cordero
--- NOTE | 2019-12-05 11:44 | PN ---
Progress Note - Progress Note Date of Service: 12/05/19 SOAP: Subjective: [Patient seen and examined in bed. States her pain has improved significantly from before surgery and is currently controlled on medications. She denies CP, SOB, f/c. Objective: Gen: A&Ox3, NAD in bed LLE: Dressing C/D/I. She has flexion contractures of the hip, knee and ankle but does have sensation to touch. Some muscle spasms with attempt flexion/ext of knee/ankle. Thigh and calf soft and NT to palpation, no palpable cords. DP pulse 2+. Assessment: [POD#1 Left hip girdle stone Plan: [Cont pain management PT/OT Eliquis for DVT ppx Waiting for placement, patient [facility]. Vital Signs Temp Pulse Resp BP Pulse Ox 97.8 F 78 16 117/81 96 12/05/19 11:16 12/05/19 11:16 12/05/19 11:16 12/05/19 11:16 12/05/19 11:16 Laboratory Last Values WBC 10.6 10^3/uL (3.5-10.8) 12/05/19 05:35 RBC 2.87 10^6 /uL (3.70-4.87) L 12/05/19 05:35 Hgb 9.8 g/dL (12.0-16.0) L 12/05/19 05:35 Hct 27 % (35-47) L 12/05/19 05:35 MCV 95 fL (80-97) 12/05/19 05:35 MCH 34 pg (27-31) H 12/05/19 05:35 MCHC 36 g/dL (31-36) 12/05/19 05:35 RDW 13 % (10-15) 12/05/19 05:35 Plt Count 243 10^3/uL (150-450) 12/05/19 05:35 MPV 7.6 fL (7.4-10.4) 12/05/19 05:35 Neut % (Auto) 77.2 % 12/05/19 05:35 Lymph % (Auto) 5.9 % 12/05/19 05:35 [place] % (Auto) 16.8 % 12/05/19 05:35 Eos % (Auto) 0.0 % 12/05/19 05:35 Baso % (Auto) 0.1 % 12/05/19 05:35 Absolute Neuts (auto) 8.2 10^3/ul (1.5-7.7) H 12/05/19 05:35 Absolute Lymphs (auto) 0.6 10^3/ul (1.0-4.8) L 12/05/19 05:35 Absolute Monos (auto) 1.8 10^3/ul (0-0.8) H 12/05/19 05:35 Absolute Eos (auto) 0.0 10^3/ul (0-0.6) 12/05/19 05:35 Absolute Basos (auto) 0.0 10^3/ul (0-0.2) 12/05/19 05:35 Absolute Nucleated RBC 0.0 10^3/ul 12/05/19 05:35 Nucleated RBC % 0.0 12/05/19 05:35 INR (Anticoag Therapy) 1.05 (0.82-1.09) 12/03/19 14:13 APTT 31.9 seconds (26.0-38.0) 12/03/19 14:13 Sodium 133 mmol/L (135-145) L 12/05/19 05:35 Potassium 3.7 mmol/L (3.5-5.0) 12/05/19 05:35 Chloride 98 mmol/L (101-111) L 12/05/19 05:35 Carbon Dioxide 28 mmol/L (22-32) 12/05/19 05:35 Anion Gap 7 mmol/L (2-11) 12/05/19 05:35 BUN 6 mg/dL (6-24) 12/05/19 05:35 Creatinine 0.51 mg/dL (0.51-0.95) 12/05/19 05:35 Est GFR ( Amer) 146.4 (>60) 12/05/19 05:35 Est GFR (Non-Af Amer) 121.0 (>60) 12/05/19 05:35 BUN/Creatinine Ratio 11.8 (8-20) 12/05/19 05:35 Glucose 136 mg/dL (70-100) H 12/05/19 05:35 POC Glucose (mg/dL) 112 mg/dL (70-100) H 12/04/19 07:22 Calcium 8.9 mg/dL (8.6-10.3) 12/05/19 05:35 Total Bilirubin 0.40 mg/dL (0.2-1.0) 12/03/19 14:13 AST 14 U/L (13-39) 12/03/19 14:13 ALT 8 U/L (7-52) 12/03/19 14:13 Alkaline Phosphatase 36 U/L (34-104) 12/03/19 14:13 Total Protein 6.4 g/dL (6.4-8.9) 12/03/19 14:13 Albumin 3.9 g/dL (3.2-5.2) 12/03/19 14:13 Globulin 2.5 g/dL (2-4) 12/03/19 14:13 Albumin/Globulin Ratio 1.6 (1-3) 12/03/19 14:13 Urine Color Yellow 12/04/19 03:29 Urine Appearance Clear 12/04/19 03:29 Urine pH 6.0 (5-9) 12/04/19 03:29 Ur Specific [place] 1.006 (1.010-1.030) L 12/04/19 03:29 Urine Protein Negative (Negative) 12/04/19 03:29 Urine Ketones 1+ (Negative) A 12/04/19 03:29 Urine Blood Negative (Negative) 12/04/19 03:29 Urine Nitrate Negative (Negative) 12/04/19 03:29 Urine Bilirubin Negative (Negative) 12/04/19 03:29 Urine Urobilinogen Negative (Negative) 12/04/19 03:29 Ur Leukocyte Esterase Negative (Negative) 12/04/19 03:29 Urine Glucose Negative (Negative) 12/04/19 03:29 Valproic Acid 149.0 mcg/mL (50-100) H 12/03/19 14:13 ]
[2019-12-05] MEDS: Senna TAB 8.6 mg* TAB PO PRN (20:07)
[2019-12-06 06:14] LABS: ABS Basophils 0.1 10^3/ul (0-0.2); ABS Lymphocytes 1.9 10^3/ul (1.0-4.8); ABS Monocytes 1.4 10^3/ul (0-0.8); ABS Neutrophils 5.4 10^3/ul (1.5-7.7); Eosinophil % 0.1 %; Hematocrit 25 % (35-47); Hemoglobin 8.8 g/dL (12.0-16.0); Lymphocyte % 21.2 %; Mean Corpuscular HGB Conc 36 g/dL (31-36); Mean Corpuscular Hemoglobin 34 pg (27-31); Mean Corpuscular Volume 96 fL (80-97); Mean Platelet Volume 8.1 fL (7.4-10.4); Platelet Count 243 10^3/uL (150-450); Red Blood Count 2.57 10^6 /uL (3.70-4.87); Red Cell Distribution Width 14 % (10-15); White Blood Count 8.8 10^3/uL (3.5-10.8)
[2019-12-06 06:26] LABS: BUN/Creatinine Ratio 8.8 (8-20); Calcium 8.2 mg/dL (8.6-10.3); EGFR African American 128.8 (>60); EGFR Non-African American 106.4 (>60); Potassium 3.5 mmol/L (3.5-5.0)
[2019-12-06 07:30] VITALS: BP 117/72
[2019-12-06] MEDS: Senna TAB 8.6 mg* TAB PO PRN (09:01)
[2019-12-06] MEDS: oxyCODONE TAB* 5 MG TAB PO PRN (09:01)
[2019-12-06] MEDS: Acetaminophen TAB* 325 MG PO PRN (09:01)
[2019-12-06] MEDS: Apixaban* 2.5 MG TAB PO SCH (09:01)
[2019-12-06] MEDS: Divalproex Sprinkle CAP* 125 MG PO SCH (09:03)
[2019-12-06] MEDS ORDERED: Ondansetron TAB* 4 MG PO PRN (09:35)
--- NOTE | 2019-12-06 09:42 | PN ---
Progress Note - Progress Note Date of Service: 12/06/19 SOAP: Subjective: [Patient seen and examined in bed. States her pain has improved significantly from before surgery and is currently controlled on medications. She denies CP, SOB, f/c. Objective: Gen: A&Ox3, NAD in bed LLE: Dressing changed today, incision C/D/I. New dressing with 4x4 and paper tape placed. She has flexion contractures of the hip, knee and ankle but does have sensation to touch. Some muscle spasms with attempt flexion/ext of knee/ ankle. Thigh and calf soft and NT to palpation, no palpable cords. DP pulse 2+. Assessment: [POD#2 Left hip girdle stone Plan: [Cont pain management PT/OT Eliquis for DVT ppx Waiting for placement, patient preference is [facility] as second choice. Vital Signs Temp Pulse Resp BP Pulse Ox 98.3 F 79 20 117/72 92 12/06/19 07:29 12/06/19 07:29 12/06/19 09:31 12/06/19 07:29 12/06/19 07:29 Laboratory Last Values WBC 8.8 10^3/uL (3.5-10.8) 12/06/19 05:50 RBC 2.57 10^6 /uL (3.70-4.87) L 12/06/19 05:50 Hgb 8.8 g/dL (12.0-16.0) L 12/06/19 05:50 Hct 25 % (35-47) L 12/06/19 05:50 MCV 96 fL (80-97) 12/06/19 05:50 MCH 34 pg (27-31) H 12/06/19 05:50 MCHC 36 g/dL (31-36) 12/06/19 05:50 RDW 14 % (10-15) 12/06/19 05:50 Plt Count 243 10^3/uL (150-450) 12/06/19 05:50 MPV 8.1 fL (7.4-10.4) 12/06/19 05:50 Neut % (Auto) 61.7 % 12/06/19 05:50 Lymph % (Auto) 21.2 % 12/06/19 05:50 [place] % (Auto) 16.4 % 12/06/19 05:50 Eos % (Auto) 0.1 % 12/06/19 05:50 Baso % (Auto) 0.6 % 12/06/19 05:50 Absolute Neuts (auto) 5.4 10^3/ul (1.5-7.7) 12/06/19 05:50 Absolute Lymphs (auto) 1.9 10^3/ul (1.0-4.8) 12/06/19 05:50 Absolute Monos (auto) 1.4 10^3/ul (0-0.8) H 12/06/19 05:50 Absolute Eos (auto) 0.0 10^3/ul (0-0.6) 12/06/19 05:50 Absolute Basos (auto) 0.1 10^3/ul (0-0.2) 12/06/19 05:50 Absolute Nucleated RBC 0.0 10^3/ul 12/06/19 05:50 Nucleated RBC % 0.0 12/06/19 05:50 INR (Anticoag Therapy) 1.05 (0.82-1.09) 12/03/19 14:13 APTT 31.9 seconds (26.0-38.0) 12/03/19 14:13 Sodium 136 mmol/L (135-145) 12/06/19 05:50 Potassium 3.5 mmol/L (3.5-5.0) 12/06/19 05:50 Chloride 100 mmol/L (101-111) L 12/06/19 05:50 Carbon Dioxide 31 mmol/L (22-32) 12/06/19 05:50 Anion Gap 5 mmol/L (2-11) 12/06/19 05:50 BUN 5 mg/dL (6-24) L 12/06/19 05:50 Creatinine 0.57 mg/dL (0.51-0.95) 12/06/19 05:50 Est GFR ( Amer) 128.8 (>60) 12/06/19 05:50 Est GFR (Non-Af Amer) 106.4 (>60) 12/06/19 05:50 BUN/Creatinine Ratio 8.8 (8-20) 12/06/19 05:50 Glucose 87 mg/dL (70-100) 12/06/19 05:50 POC Glucose (mg/dL) 112 mg/dL (70-100) H 12/04/19 07:22 Calcium 8.2 mg/dL (8.6-10.3) L 12/06/19 05:50 Total Bilirubin 0.40 mg/dL (0.2-1.0) 12/03/19 14:13 AST 14 U/L (13-39) 12/03/19 14:13 ALT 8 U/L (7-52) 12/03/19 14:13 Alkaline Phosphatase 36 U/L (34-104) 12/03/19 14:13 Total Protein 6.4 g/dL (6.4-8.9) 12/03/19 14:13 Albumin 3.9 g/dL (3.2-5.2) 12/03/19 14:13 Globulin 2.5 g/dL (2-4) 12/03/19 14:13 Albumin/Globulin Ratio 1.6 (1-3) 12/03/19 14:13 Urine Color Yellow 12/04/19 03:29 Urine Appearance Clear 12/04/19 03:29 Urine pH 6.0 (5-9) 12/04/19 03:29 Ur Specific [place] 1.006 (1.010-1.030) L 12/04/19 03:29 Urine Protein Negative (Negative) 12/04/19 03:29 Urine Ketones 1+ (Negative) A 12/04/19 03:29 Urine Blood Negative (Negative) 12/04/19 03:29 Urine Nitrate Negative (Negative) 12/04/19 03:29 Urine Bilirubin Negative (Negative) 12/04/19 03:29 Urine Urobilinogen Negative (Negative) 12/04/19 03:29 Ur Leukocyte Esterase Negative (Negative) 12/04/19 03:29 Urine Glucose Negative (Negative) 12/04/19 03:29 Valproic Acid 149.0 mcg/mL (50-100) H 12/03/19 14:13
--- NOTE | 2019-12-06 21:04 | DS ---
CC: Dr. Fozia Silva; Dr. Maritza Jenkins * DISCHARGE SUMMARY: DATE OF ADMISSION: 12/03/19 DATE OF DISCHARGE: 12/06/19 PRIMARY CARE PROVIDER: Dr. Fozia Silva. ORTHOPEDIC SURGEON: Dr. Maritza Jenkins. ATTENDING PHYSICIAN: Dr. Elisa Cordero.* (DICTATED BY GRACE KESSLER NP) PRIMARY DIAGNOSES: 1. Left femoral neck fracture, status post left hip Girdlestone. 2. Acute blood loss anemia. SECONDARY DIAGNOSES: 1. Seizure disorder. 2. 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 STUDIES WHILE IN THE HOSPITAL: 1. Left femur x-ray on 12/03/19, reads as fracture of the left femoral neck and overriding of the fracture fragments. Cannot totally exclude fracture of the distal femur. 2. Left hip pelvis x-ray on 12/03/19, reads as left femoral neck fracture with overriding of the fracture fragments. 3. Left shoulder x-ray reads as old fracture of the distal left clavicle with slight deformity. No definite new fracture is identified. 4. Chest x-ray reads as linear atelectasis in the left lung base. 5. Pelvis CT on 12/03/19, reads as there is a fracture that is mildly comminuted at the neck of the left femur with overriding of the fracture fragments. CONSULTATION WHILE IN THE HOSPITAL: 1. Dr. Jenkins with Orthopedic on 12/03/19. PROCEDURE WHILE IN THE HOSPITAL: 1. Left hip Girdlestone with Dr. Jenkins on 12/04/19. HISTORY OF PRESENT ILLNESS AND HOSPITAL COURSE: Ms. Nicole is a 64-year-old female with past medical history of hemorrhagic CVA with residual left-sided hemiparesis, seizure disorder, and hypertension, who presented to the emergency room on 12/03/19, after a fall with left hip pain. Please see the history and physical by ALONZO Daniels, for complete summary with the events leading up to this hospitalization. In short, the patient had a mechanical fall at home when she was getting into bed from her wheelchair when the wheelchair slipped off from underneath her. There was no head trauma or loss of consciousness. She did develop left hip pain overnight until presented to the emergency room where she had an imaging as noted above and was noted to have a left hip fracture. She was noted to have some mild leukocytosis with a white blood count of 12.9, but no other findings indicative of infection. She was noted to be mildly anemic with an H and H of 11.7 and 34, and mildly hyponatremic with a sodium of 129. She was admitted by the hospitalist service. Orthopedics was consulted and the patient was seen by Dr. Jenkins on 12/03/19. At that point, Dr. Jenkins discussed surgical options of the patient and ultimately the patient did elect to proceed with surgery. As noted above, she had surgery on 12/04/19. She tolerated the surgery well with approximately 200 mL of blood loss. She did have a mild drop in H and H after surgery, which was noted to be 9.8 and 27. Of note, her white blood count did improve. Again, I do not think this was indicative of any sort of infection and I think it was reactive due to the fall. The patient's sodium did correct to normal. She has been able to work with physical therapy. Orthopedics has cleared the patient for discharge. She has been evaluated by our inpatient rehab here, who have accepted her for admission today, which the patient is agreeable to. PHYSICAL EXAMINATION: The patient is alert and oriented x4. Strength is approximately 1/5 on the left and 5/5 on the right, which is the patient's reported baseline. Heart has a regular rate and rhythm without murmurs, rubs or gallops. Lungs are clear to auscultation without rhonchi, wheezes or rales. Abdomen is soft, nontender to palpation. There is no significant edema. Physical exam is otherwise benign. Ms. Nicole is stable for discharge. Most recent vitals are as follows: Temp 98.3, heart rate 79, respiratory rate 20, oxygen saturation 98% on room air, blood pressure 117/72. DISCHARGE MEDICATIONS: New: 1. Acetaminophen 650 mg p.o. q.4 hours p.r.n. pain. 2. Maalox 30 mL p.o. q.6 hours p.r.n. indigestion. 3. Eliquis 2.5 mg p.o. b.i.d. 4. Ondansetron 4 mg p.o. q.6 hours p.r.n. nausea and vomiting. 5. Oxycodone 5 to 10 mg p.o. q.6 hours p.r.n. pain. 6. Senna 1 tab p.o. b.i.d. p.r.n. constipation. Continued: 1. Depakote 500 mg p.o. t.i.d. 2. Probiotic 1 cap p.o. daily. 3. Potassium chloride 10 mEq p.o. daily. DISCHARGE PLAN: Ms. Nicole will be discharged to inpatient rehab here at [facility]. Activity per Orthopedics, will be weightbearing as tolerated with a walker. Diet will be regular as tolerated. Medications are noted above. The patient can continue using oxycodone and acetaminophen for pain, which has managed her pain well while she was an inpatient. She has been started on Eliquis for DVT prophylaxis per Orthopedic recommendation and she should take an appropriate bowel regimen with these pain medications. She can resume her other usual medications as noted above. She will need to follow up with Dr. Jenkins. She will follow up with a provider at the inpatient rehab upon her arrival and after discharge can follow up with her normal PCP. She should return to the emergency room for any worsening symptoms, shortness of breath, lightheadedness, dizziness, chest discomfort, high fevers, chills, night sweats , loss of consciousness or any other worrisome signs or symptoms. DISCHARGE CONDITION: Stable. DISCHARGE DISPOSITION: Inpatient rehab, [facility]. This is a summarized report of a complex medical history and hospital stay. For further details, please see the entire medical record. TIME SPENT: Approximately 45 minutes was spent on this discharge. GRACE KESSLER, FAMILY ASSESSMENT WORKER [id number]/CPS #: [id number] CHRIS
== END 2019-12-06 10:15 | DRG 498 ==
LOC: ED 10:53 → SSU 14:33
PROVIDERS: ADMIT Hospitalist; ATTEND Hospitalist
PROC: 0QB70ZZ Excision of Left Upper Femur, Open Approach (ICD-10-PCS; principal; 2019-12-04 16:00)
DX: S72.142A Displaced intertrochanteric fracture of left femur, initial encounter for closed fracture (principal); I69.154 Hemiplegia and hemiparesis following nontraumatic intracerebral hemorrhage affecting left non-dominant side; E87.1 Hypo-osmolality and hyponatremia; D62 Acute posthemorrhagic anemia; W05.0XXA Fall from non-moving wheelchair, initial encounter; D72.829 Elevated white blood cell count, unspecified; G40.909 Epilepsy, unspecified, not intractable, without status epilepticus; I10 Essential (primary) hypertension; M62.49 Contracture of muscle, multiple sites; K21.9 Gastro-esophageal reflux disease without esophagitis; M62.838 Other muscle spasm; M85.862 Other specified disorders of bone density and structure, left lower leg; Y92.009 Unspecified place in unspecified non-institutional (private) residence as the place of occurrence of the external cause; Z79.899 Other long term (current) drug therapy; Z80.3 Family history of malignant neoplasm of breast; Z80.0 Family history of malignant neoplasm of digestive organs
CPT/HCPCS: 36415; 71045; 72192; 80048; 80053; 80164; 81003; 85025; 85610; 85730; 88305; 88311; 99284; A9270-GY; J0690; J1100; J2270; J2405; J2704; J3490

== ENCOUNTER 2019-12-06 10:18 | Inpatient (IN) | payer MEDICARE, MEDICAID ==
--- OUTSIDE RECORDS SUMMARY | 2019-12-06 10:24 | XMS REPORT ---
:1955 Author Organization [facility] Care Team Providers Name Role Phone Unavailable Unavailable Unavailable Problems Condition Condition Condition Status Onset Resolution Last Treating Comments Name Details Category Date Date Treatment Clinician Date Hemiplegia Hemiplegia Diagnosis Active Nereyda and and 2-13 Wallace hemiparesis hemiparesis [id number] following following cerebral cerebral infarction infarction affecting affecting left left non-dominan non-dominan t side t side Epilepsy, Epilepsy, Diagnosis Active Nereyda unspecified unspecified 2-13 Wallace , not , not [id number] intractable intractable , without , without status status epilepticus epilepticus Essential Essential Diagnosis Active Nereyda (primary) (primary) 2-13 Wallace hypertensio hypertensio [id number] n n Hyperlipide Hyperlipide Diagnosis Active Nereyda ford, ford, 2-13 Wallace unspecified unspecified [id number] Pain frequent Pain Mgmt Resolve 2019-11-10 Yamile pain d 2-13 12:55:00 (Clay) 11:00: [id number] Respiratory dyspnea Respirator Resolve 2019-11-17 Yamile present y d 2-13 11:00:00 (Clay) 11:00: [id number] Integument skin Integument Resolve 2019-11-03 Yamile integrity d 2-13 11:55:00 (Clay) risk 11:00: [id number] Elimination urinary Eliminatio Resolve 2019-11-03 Yamile incontinenc n d 2-13 11:55:00 (Clay) e 11:00: [id number] Neuro confusion Neuro/Emot Active Yamile present ion 2-13 (Clay) 11:00: [id number] Neuro anxiety Neuro/Emot Active 2020-0 Yamile present ion 2-13 (Clay) 11:00: [id number] Activity ADL Activity Active 2019-0 Yamile assistance 2-13 (Clay) required 11:00: [id number] Activity self-care Activity Active 2020-0 Yamile deficit 2-13 (Clay) 11:00: [id number] Safety fall risk Safety Active 2019-0 Yamile factor 2-13 (Clay) present 11:00: [id number] Safety risk for Safety Active 2019-0 Yamile hospitaliza 2-13 (Clay) tion 11:00: [id number] Safety can be left Safety Active 2019-0 Yamile alone for 2-13 (Clay) only short 11:00: Muller [id number] Medication oral med Meds Active Yamile assistance 2-13 (Clay) required 11:00: [id number] Medication potential Meds Active Yamile clinically 2-13 (Clay) significant 11:00: Muller medication [id number] issue Bed transfer PT/OT: Bed Active Nereyda Mobility/Tr deficit: Mobility/T 2-21 Wallace ansfer shower/tub ransfer 13:18: [id number] Balance/End balance/pain coordinator PT/OT: Active Nereyda urance rdination Balance/En 2-21 Wallace deficit durance 13:18: [id number] Balance/End endurance PT/OT: Active Nereyda urance deficit Balance/En 2-21 Wallace durance 13:18: [id number] 00 Gait/Locomo gait PT/OT: Active Nereyda tion assistive Gait/Locom 2-21 Wallace problems device otion 13:18: [id number] present 00 Gait/Locomo gait PT/OT: Active 2020- Nereyda tion deficit Gait/Locom 2-21 Wallace problems otion 13:18: [id number] Elimination urinary Eliminatio Resolve 2019-11-17 Sonja incontinenc n d 2-25 11:00:00 Oscar jordan 12:55: 00 Musculoskel requires Musculoske Resolve 2019-11-10 Sonja etal human letal d 11-10 12:55:00 Moore assist to 12:55: leave home 00 Musculoskel requires Musculoske Active Sonja etal human letal 11-16 Moore assist to 11:00: leave home 00 Allergies, Adverse Reactions, Alerts Allergy Allergy Status Severity Reaction(s) Onset Inactive Treating Comments Name Type Date Date Clinician Unknown None Active Unknown None Unknown No Known Allergies For This Patient Medications Ordered Filled Start Stop Current Ordering Indication Dosage Frequency Signature Comments Components Medication Medication Date Date Medication? Clinician (SIG) Name Name potassium potassium Yes Stevanovic Unknown Unknown chloride ER chloride ER 2- MD,Radomir 10 mEq 10 mEq tablet,exte tablet,exte nded nded release release Depakote Depakote 2019- Yes Stevanovic Unknown Unknown 500 mg 500 mg 10-29 MD,Radomir tablet,lanie tablet,lanie yed release yed release Depakote Depakote 2019- Yes Stevanovic Unknown Unknown 125 mg 125 mg 10-29 MD,Radomir tablet,lanie tablet,lanie yed release yed release Probiotic Probiotic Yes Stevanovic Unknown Unknown 10 billion 10 billion - MD,Radomir cell cell capsule capsule Depakote Depakote Yes Stevanovic Unknown Unknown 125 mg 125 mg - MD,Radomir tablet,lanie tablet,lanie yed release yed release Vital Signs Vital Name Observation Time Observation Value Comments SYSTOLIC mm[Hg] 2019-11-01 18:10:25 126 mm[Hg] mm[Hg] Method: Stand DIASTOLIC mm[Hg] 2019-11-01 18:10:25 70 mm[Hg] mm[Hg] Method: Stand RESP RATE 2019-11-17 18:10:41 18 /min /min TEMP 2019-11-26 18:10:50 98.4 [degF] Procedures This patient has no known procedures. Results This patient has no known results.
--- OUTSIDE RECORDS SUMMARY | 2019-12-06 10:24 | XMS REPORT ---
:1955 Author Organization [facility] Care Team Providers Name Role Phone Unavailable Unavailable Unavailable Problems Condition Condition Condition Status Onset Resolution Last Treating Comments Name Details Category Date Date Treatment Clinician Date Hemiplegia Hemiplegia Diagnosis Active Nereyda and and 2-13 Wallace hemiparesis hemiparesis [id number] following following cerebral cerebral infarction infarction affecting affecting left left non-dominan non-dominan t side t side Epilepsy, Epilepsy, Diagnosis Active Nereyda unspecified unspecified 2-13 Wallace , not , not [id number] intractable intractable , without , without status status epilepticus epilepticus Essential Essential Diagnosis Active Nereyda (primary) (primary) 2-13 Wallace hypertensio hypertensio [id number] n n Hyperlipide Hyperlipide Diagnosis Active Nereyda ford, ford, 2-13 Wallace unspecified unspecified [id number] Pain frequent Pain Mgmt Resolve 2019-11-10 Yamile pain d 2-13 12:55:00 (Clay) 11:00: [id number] Respiratory dyspnea Respirator Resolve 2019-11-17 Yamile present y d 2-13 11:00:00 (Clay) 11:00: [id number] Integument skin Integument Resolve 2019-11-03 Yamile integrity d 2-13 11:55:00 (Clay) risk 11:00: [id number] Elimination urinary Eliminatio Resolve 2019-11-03 Yamile incontinenc n d 2-13 11:55:00 (Clay) e 11:00: [id number] Neuro confusion Neuro/Emot Active Yamile present ion 2-13 (Clay) 11:00: [id number] Neuro anxiety Neuro/Emot Active 2020-0 Yamile present ion 2-13 (Clay) 11:00: [id number] Activity ADL Activity Active 2019-0 Yamile assistance 2-13 (Clay) required 11:00: [id number] Activity self-care Activity Active 2020-0 Yamile deficit 2-13 (Clay) 11:00: [id number] Safety fall risk Safety Active 2019-0 Yamile factor 2-13 (Clay) present 11:00: [id number] Safety risk for Safety Active 2019-0 Yamile hospitaliza 2-13 (Clay) tion 11:00: [id number] Safety can be left Safety Active 2019-0 Yamile alone for 2-13 (Clay) only short 11:00: Muller [id number] Medication oral med Meds Active Yamile assistance 2-13 (Clay) required 11:00: [id number] Medication potential Meds Active Yamile clinically 2-13 (Clay) significant 11:00: Muller medication [id number] issue Bed transfer PT/OT: Bed Active Nereyda Mobility/Tr deficit: Mobility/T 2-21 Wallace ansfer shower/tub ransfer 13:18: [id number] Balance/End balance/quality compliance coordinator PT/OT: Active Nereyda urance rdination Balance/En 2-21 Wallace deficit durance 13:18: [id number] Balance/End endurance PT/OT: Active Nereyda urance deficit Balance/En 2-21 Wallace durance 13:18: [id number] 00 Gait/Locomo gait PT/OT: Active Nereyda tion assistive Gait/Locom 2-21 Wallace problems device otion 13:18: [id number] present 00 Gait/Locomo gait PT/OT: Active 2020- Nereyda tion deficit Gait/Locom 2-21 Wallace problems otion 13:18: [id number] Elimination urinary Eliminatio Resolve 2019-11-17 Sonja incontinenc n d 2-25 11:00:00 Oscar jordan 12:55: 00 Musculoskel requires Musculoske Resolve 2019-11-10 Sonja etal human letal d 2 12:55:00 Moore assist to 12:55: leave home 00 Musculoskel requires Musculoske Active Sonja etal human letal 3 Moore assist to 11:00: leave home 00 [...] Stevanovic Unknown Unknown 10 billion 10 billion 2- MD,Radomir cell cell capsule capsule Depakote Depakote Yes Stevanovic Unknown Unknown 125 mg 125 mg -25 MD,Radomir tablet,lanie tablet,lanie yed release yed release Vital Signs Vital Name Observation Time Observation Value Comments SYSTOLIC mm[Hg] 2019-11-26 18:10:50 102 mm[Hg] mm[Hg] Method: Sit SYSTOLIC mm[Hg] 2019-11-01 18:10:25 126 mm[Hg] mm[Hg] Method: Stand DIASTOLIC mm[Hg] 2019-11-26 18:10:50 80 mm[Hg] mm[Hg] Method: Sit DIASTOLIC mm[Hg] 2019-11-01 18:10:25 70 mm[Hg] mm[Hg] Method: Stand PULSE 2019-11-26 18:10:50 84 /min /min RESP RATE 2019-11-17 18:10:41 18 /min /min TEMP 2019-11-26 18:10:50 98.4 [degF] Procedures This patient has no known procedures. Results This patient has no known results.
--- OUTSIDE RECORDS SUMMARY | 2019-12-06 10:24 | XMS REPORT ---
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 non-dominan non-dominan t side t side Epilepsy, Epilepsy, Diagnosis Active Nereyda unspecified unspecified 2-13 Wallace , not , not [id number] intractable intractable , without , without status status epilepticus epilepticus Essential Essential Diagnosis Active Nereyda (primary) (primary) 2-13 Wallace hypertensio hypertensio [id number] n n Hyperlipide Hyperlipide Diagnosis Active Nereyda ford, ford, 2-13 Wallace unspecified unspecified [id number] Pain frequent Pain Mgmt Resolve 2019-11-10 Yamile pain d 2-13 12:55:00 (Clay) 11:00: [id number] Respiratory dyspnea Respirator Resolve 2019-11-17 Yamile present y d 2-13 11:00:00 (Clay) 11:00: [id number] Integument skin Integument Resolve 2019-11-03 Yamile integrity d 2-13 11:55:00 (Clay) risk 11:00: [id number] Elimination urinary Eliminatio Resolve 2019-11-03 Yamile incontinenc n d 2-13 11:55:00 (Clay) e 11:00: [id number] Neuro confusion Neuro/Emot Active Yamile present ion 2-13 (Clay) 11:00: [id number] Neuro anxiety Neuro/Emot Active 2020-0 Yamile present ion 2-13 (Clay) 11:00: [id number] Activity ADL Activity Active 2019-0 Yamile assistance 2-13 (Clay) required 11:00: [id number] Activity self-care Activity Active 2020-0 Yamile deficit 2-13 (Clay) 11:00: [id number] Safety fall risk Safety Active 2019-0 Yamile factor 2-13 (Clay) present 11:00: [id number] Safety risk for Safety Active 2019-0 Yamile hospitaliza 2-13 (Clay) tion 11:00: [id number] Safety can be left Safety Active 2019-0 Yamile alone for 2-13 (Clay) only short 11:00: Muller [id number] Medication oral med Meds Active Yamile assistance 2-13 (Clay) required 11:00: [id number] Medication potential Meds Active Yamile clinically 2-13 (Clay) significant 11:00: Muller medication [id number] issue Bed transfer PT/OT: Bed Active Nereyda Mobility/Tr deficit: Mobility/T 2-21 Wallace ansfer shower/tub ransfer 13:18: [id number] 00 Balance/End balance/guest relations coordinator PT/OT: Active Nereyda urance rdination Balance/En 2-21 Wallace deficit durance 13:18: [id number] 00 Balance/End endurance PT/OT: Active Nereyda urance deficit Balance/En 2-21 Wallace durance 13:18: [id number] 00 Gait/Locomo gait PT/OT: Active Nereyda tion assistive Gait/Locom 2-21 Wallace problems device otion 13:18: [id number] present 00 Gait/Locomo gait PT/OT: Active 2020- Nereyda tion deficit Gait/Locom 2-21 Wallace problems otion 13:18: [id number] 00 Elimination urinary Eliminatio Resolve 2019-11-17 Sonja [...]
--- OUTSIDE RECORDS SUMMARY | 2019-12-06 10:24 | XMS REPORT ---
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 non-dominan non-dominan t side t side Epilepsy, Epilepsy, Diagnosis Active Nereyda unspecified unspecified 2-13 Wallace , not , not [id number] intractable intractable , without , without status status epilepticus epilepticus Essential Essential Diagnosis Active Nereyda (primary) (primary) 2-13 Wallace hypertensio hypertensio [id number] n n Hyperlipide Hyperlipide Diagnosis Active Nereyda ford, ford, 2-13 Wallace unspecified unspecified [id number] Pain frequent Pain Mgmt Resolve 2019-11-10 Yamile pain d 2-13 12:55:00 (Clay) 11:00: [id number] Respiratory dyspnea Respirator Resolve 2019-11-17 Yamile present y d 2-13 11:00:00 (Clay) 11:00: [id number] Integument skin Integument Resolve 2019-11-03 Yamile integrity d 2-13 11:55:00 (Clay) risk 11:00: [id number] Elimination urinary Eliminatio Resolve 2019-11-03 Yamile incontinenc n d 2-13 11:55:00 (Clay) e 11:00: [id number] Neuro confusion Neuro/Emot Active Yamile present ion 2-13 (Clay) 11:00: [id number] Neuro anxiety Neuro/Emot Active 2020-0 Yamile present ion 2-13 (Clay) 11:00: [id number] Activity ADL Activity Active 2019-0 Yamile assistance 2-13 (Clay) required 11:00: [id number] Activity self-care Activity Active 2020-0 Yamile deficit 2-13 (Clay) 11:00: [id number] Safety fall risk Safety Active 2019-0 Yamile factor 2-13 (Clay) present 11:00: [id number] Safety risk for Safety Active 2019-0 Yamile hospitaliza 2-13 (Clay) tion 11:00: [id number] Safety can be left Safety Active 2019-0 Yamile alone for 2-13 (Clay) only short 11:00: Muller [id number] Medication oral med Meds Active Yamile assistance 2-13 (Clay) required 11:00: [id number] Medication potential Meds Active Yamile clinically 2-13 (Clay) significant 11:00: Muller medication [id number] issue Bed transfer PT/OT: Bed Active Nereyda Mobility/Tr deficit: Mobility/T 2-21 Wallace ansfer shower/tub ransfer 13:18: [id number] 00 Balance/End balance/measurement coordinator PT/OT: Active Nereyda urance rdination Balance/En 2-21 Wallace deficit durance 13:18: [id number] 00 Balance/End endurance PT/OT: Active Nereyda urance deficit Balance/En 2-21 Wallace durance 13:18: [id number] 00 Gait/Locomo gait PT/OT: Active Nereyda tion assistive Gait/Locom 2-21 Wallace problems device otion 13:18: [id number] present 00 Gait/Locomo gait PT/OT: Active 2020- Nereyda tion deficit Gait/Locom 2-21 Wallace problems otion 13:18: [id number] 00 Elimination urinary Eliminatio Resolve 2019-11-17 Sonja [...]
--- OUTSIDE RECORDS SUMMARY | 2019-12-06 10:24 | XMS REPORT ---
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 non-dominan non-dominan t side t side Epilepsy, Epilepsy, Diagnosis Active Nereyda unspecified unspecified 2-13 Wallace , not , not [id number] intractable intractable , without , without status status epilepticus epilepticus Essential Essential Diagnosis Active Nereyda (primary) (primary) 2-13 Wallace hypertensio hypertensio [id number] n n Hyperlipide Hyperlipide Diagnosis Active Nereyda ford, ford, 2-13 Wallace unspecified unspecified [id number] Pain frequent Pain Mgmt Resolve 2019-11-10 Yamile pain d 2-13 12:55:00 (Clay) 11:00: [id number] Respiratory dyspnea Respirator Resolve 2019-11-17 Yamile present y d 2-13 11:00:00 (Clay) 11:00: [id number] Integument skin Integument Resolve 2019-11-03 Yamile integrity d 2-13 11:55:00 (Clay) risk 11:00: [id number] Elimination urinary Eliminatio Resolve 2019-11-03 Yamile incontinenc n d 2-13 11:55:00 (Clay) e 11:00: [id number] Neuro confusion Neuro/Emot Active Yamile present ion 2-13 (Clay) 11:00: [id number] Neuro anxiety Neuro/Emot Active 2020-0 Yamile present ion 2-13 (Clay) 11:00: [id number] Activity ADL Activity Active 2019-0 Yamile assistance 2-13 (Clay) required 11:00: [id number] Activity self-care Activity Active 2020-0 Yamile deficit 2-13 (Clay) 11:00: [id number] Safety fall risk Safety Active 2019-0 Yamile factor 2-13 (Clay) present 11:00: [id number] Safety risk for Safety Active 2019-0 Yamile hospitaliza 2-13 (Clay) tion 11:00: [id number] Safety can be left Safety Active 2019-0 Yamile alone for 2-13 (Clay) only short 11:00: Muller [id number] Medication oral med Meds Active Yamile assistance 2-13 (Clay) required 11:00: [id number] Medication potential Meds Active Yamile clinically 2-13 (Clay) significant 11:00: Muller medication [id number] issue Bed transfer PT/OT: Bed Active Nereyda Mobility/Tr deficit: Mobility/T 2-21 Wallace ansfer shower/tub ransfer 13:18: [id number] 00 Balance/End balance/third cook PT/OT: Active Nereyda urance rdination Balance/En 2-21 Wallace deficit durance 13:18: [id number] 00 Balance/End endurance PT/OT: Active Nereyda urance deficit Balance/En 2-21 Wallace durance 13:18: [id number] 00 Gait/Locomo gait PT/OT: Active Nereyda tion assistive Gait/Locom 2-21 Wallace problems device otion 13:18: [id number] present 00 Gait/Locomo gait PT/OT: Active 2020- Nereyda tion deficit Gait/Locom 2-21 Wallace problems otion 13:18: [id number] 00 Elimination urinary Eliminatio Resolve 2019-11-17 Sonja [...]
--- OUTSIDE RECORDS SUMMARY | 2019-12-06 10:24 | XMS REPORT ---
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 non-dominan non-dominan t side t side Epilepsy, Epilepsy, Diagnosis Active Nereyda unspecified unspecified 2-13 Wallace , not , not [id number] intractable intractable , without , without status status epilepticus epilepticus Essential Essential Diagnosis Active Nereyda (primary) (primary) 2-13 Wallace hypertensio hypertensio [id number] n n Hyperlipide Hyperlipide Diagnosis Active Nereyda ford, ford, 2-13 Wallace unspecified unspecified [id number] Pain frequent Pain Mgmt Resolve 2019-11-10 Yamile pain d 2-13 12:55:00 (Clay) 11:00: [id number] Respiratory dyspnea Respirator Resolve 2019-11-17 Yamile present y d 2-13 11:00:00 (Clay) 11:00: [id number] Integument skin Integument Resolve 2019-11-03 Yamile integrity d 2-13 11:55:00 (Clay) risk 11:00: [id number] Elimination urinary Eliminatio Resolve 2019-11-03 Yamile incontinenc n d 2-13 11:55:00 (Clay) e 11:00: [id number] Neuro confusion Neuro/Emot Active Yamile present ion 2-13 (Clay) 11:00: [id number] Neuro anxiety Neuro/Emot Active 2020-0 Yamile present ion 2-13 (Clay) 11:00: [id number] Activity ADL Activity Active 2019-0 Yamile assistance 2-13 (Clay) required 11:00: [id number] Activity self-care Activity Active 2020-0 Yamile deficit 2-13 (Clay) 11:00: [id number] Safety fall risk Safety Active 2019-0 Yamile factor 2-13 (Clay) present 11:00: [id number] Safety risk for Safety Active 2019-0 Yamile hospitaliza 2-13 (Clay) tion 11:00: [id number] Safety can be left Safety Active 2019-0 Yamile alone for 2-13 (Clay) only short 11:00: Muller [id number] Medication oral med Meds Active Yamile assistance 2-13 (Clay) required 11:00: [id number] Medication potential Meds Active Yamile clinically 2-13 (Clay) significant 11:00: Muller medication [id number] issue Bed transfer PT/OT: Bed Active Nereyda Mobility/Tr deficit: Mobility/T 2-21 Wallace ansfer shower/tub ransfer 13:18: [id number] 00 Balance/End balance/lean manufacturing coordinator PT/OT: Active Nereyda urance rdination Balance/En 2-21 Wallace deficit durance 13:18: [id number] 00 Balance/End endurance PT/OT: Active Nereyda urance deficit Balance/En 2-21 Wallace durance 13:18: [id number] 00 Gait/Locomo gait PT/OT: Active Nereyda tion assistive Gait/Locom 2-21 Wallace problems device otion 13:18: [id number] present 00 Gait/Locomo gait PT/OT: Active 2020- Nereyda tion deficit Gait/Locom 2-21 Wallace problems otion 13:18: [id number] 00 Elimination urinary Eliminatio Resolve 2019-11-17 Sonja [...]
--- OUTSIDE RECORDS SUMMARY | 2019-12-06 10:25 | XMS REPORT ---
:1955 Author Organization [facility] Care Team Providers Name Role Phone Unavailable Unavailable Unavailable Problems Condition Condition Condition Status Onset Resolution Last Treating Comments Name Details Category Date Date Treatment Clinician Date Hemiplegia Hemiplegia Diagnosis Active Sonja and and 212 Moore hemiparesis hemiparesis following following cerebral cerebral infarction infarction affecting affecting unspecified unspecified side side Pain frequent Pain Mgmt Active 2020-0 Yamile pain 2-13 (Clay) 11:00: Muller [id number] Respiratory dyspnea Respirator Active 0 Yamile present y 2-13 (Clay) 11:00: Muller [id number] Integument skin Integument Resolve 0 2019-11-03 Yamile integrity d 2-13 11:55:00 (Clay) risk 11:00: Muller [id number] Elimination urinary Eliminatio Resolve 2019-2019-11-03 Yamile incontinenc n d 2-13 11:55:00 (Clay) e 11:00: Muller [id number] Neuro confusion Neuro/Emot Active 2020-0 Yamile present ion 2-13 (Clay) 11:00: Muller [id number] Neuro anxiety Neuro/Emot Active 2020-0 Yamile present ion 2-13 (Clay) 11:00: Muller [id number] Activity ADL Activity Active 2020-0 Yamile assistance 2-13 (Clay) required 11:00: Muller [id number] Activity self-care Activity Active 2020-0 Yamile deficit 2-13 (Clay) 11:00: Muller [id number] Safety fall risk Safety Active 2020-0 Yamile factor 2-13 (Clay) present 11:00: Muller [id number] Safety risk for Safety Active 2019-0 Yamile hospitaliza 2-13 (Clay) tion 11:00: Renzo [id number] Safety can be left Safety Active 2020-0 Yamile alone for 2-13 (Clay) only short 11:00: Muller periods [id number] Medication oral med Meds Active Yamile assistance 2-13 (Clay) required 11:00: [id number] Medication potential Meds Active Yamile clinically 2-13 (Clay) significant 11:00: Muller medication [id number] issue Allergies, Adverse Reactions, Alerts Allergy Allergy Status Severity Reaction(s) Onset Inactive Treating Comments Name Type Date Date Clinician Unknown None Active Unknown None Unknown No Known Allergies For This Patient Medications Ordered Filled Start Stop Current Ordering Indication Dosage Frequency Signature Comments Components Medication Medication Date Date Medication? Clinician (SIG) Name Name potassium potassium Yes Stevanovic Unknown Unknown chloride ER chloride ER 2-13 MD,Radomir 10 mEq 10 mEq tablet,exte tablet,exte nded nded release release Depakote Depakote Yes Stevanovic Unknown Unknown 500 mg 500 mg 2-13 MD,Radomir tablet,lanie tablet,lanie yed release yed release Depakote Depakote Yes Stevanovic Unknown Unknown 125 mg 125 mg 2-13 MD,Radomir tablet,lanei tablet,lanie yed release yed release Probiotic Probiotic Yes Stevanovic Unknown Unknown 10 billion 10 billion 2-13 MD,Radomir cell cell capsule capsule Vital Signs Vital Name Observation Time Observation Value Comments SYSTOLIC mm[Hg] 2019-11-03 18:10:27 122 mm[Hg] mm[Hg] Method: Sit SYSTOLIC mm[Hg] 2019-11-01 18:10:25 126 mm[Hg] mm[Hg] Method: Stand DIASTOLIC mm[Hg] 2019-11-03 18:10:27 72 mm[Hg] mm[Hg] Method: Sit DIASTOLIC mm[Hg] 2019-11-01 18:10:25 70 mm[Hg] mm[Hg] Method: Stand PULSE 2019-11-03 18:10:27 72 /min /min RESP RATE 2019-11-03 18:10:27 16 /min /min TEMP 2019-11-03 18:10:27 97.1 [degF] Procedures This patient has no known procedures. Results This patient has no known results.
--- OUTSIDE RECORDS SUMMARY | 2019-12-06 10:25 | XMS REPORT ---
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 non-dominan non-dominan t side t side Epilepsy, Epilepsy, Diagnosis Active Nereyda unspecified unspecified 2-13 Wallace , not , not [id number] intractable intractable , without , without status status epilepticus epilepticus Essential Essential Diagnosis Active Nereyda (primary) (primary) 2-13 Wallace hypertensio hypertensio [id number] n n Hyperlipide Hyperlipide Diagnosis Active Nereyda ford, ford, 2-13 Wallace unspecified unspecified [id number] Pain frequent Pain Mgmt Resolve 2019-11-10 Yamile pain d 2-13 12:55:00 (Clay) 11:00: [id number] Respiratory dyspnea Respirator Resolve 2019-11-17 Yamile present y d 2-13 11:00:00 (Clay) 11:00: [id number] Integument skin Integument Resolve 2019-11-03 Yamile integrity d 2-13 11:55:00 (Clay) risk 11:00: [id number] Elimination urinary Eliminatio Resolve 2019-11-03 Yamile incontinenc n d 2-13 11:55:00 (Clay) e 11:00: [id number] Neuro confusion Neuro/Emot Active Yamile present ion 2-13 (Clay) 11:00: [id number] Neuro anxiety Neuro/Emot Active 2020-0 Yamile present ion 2-13 (Clay) 11:00: [id number] Activity ADL Activity Active 2019-0 Yamile assistance 2-13 (Clay) required 11:00: [id number] Activity self-care Activity Active 2020-0 Yamile deficit 2-13 (Clay) 11:00: [id number] Safety fall risk Safety Active 2019-0 Yamile factor 2-13 (Clay) present 11:00: [id number] Safety risk for Safety Active 2019-0 Yamile hospitaliza 2-13 (Clay) tion 11:00: [id number] Safety can be left Safety Active 2019-0 Yamile alone for 2-13 (Clay) only short 11:00: Muller [id number] Medication oral med Meds Active Yamile assistance 2-13 (Clay) required 11:00: [id number] Medication potential Meds Active Yamile clinically 2-13 (Clay) significant 11:00: Muller medication [id number] issue Bed transfer PT/OT: Bed Active Nereyda Mobility/Tr deficit: Mobility/T 2-21 Wallace ansfer shower/tub ransfer 13:18: [id number] 00 Balance/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/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 PT/OT: Active Nereyda urance rdination Balance/En 2-21 Wallace deficit durance 13:18: [id number] 00 Balance/End endurance PT/OT: Active Nereyda urance deficit Balance/En 2-21 Wallace durance 13:18: [id number] 00 Gait/Locomo gait PT/OT: Active Nereyda tion assistive Gait/Locom 2-21 Wallace problems device otion 13:18: [id number] present 00 Gait/Locomo gait PT/OT: Active 2020- Nereyda tion deficit Gait/Locom 2-21 Wallace problems otion 13:18: [id number] 00 Elimination urinary Eliminatio Resolve 2019-11-17 Sonja [...] Stevanovic Unknown Unknown 125 mg 125 mg 2-25 MD,Radomir tablet,lanie tablet,lanie yed release yed release Vital Signs Vital Name Observation Time Observation Value Comments SYSTOLIC mm[Hg] 2019-11-24 18:10:48 110 mm[Hg] mm[Hg] Method: Sit SYSTOLIC mm[Hg] 2019-11-01 18:10:25 126 mm[Hg] mm[Hg] Method: Stand DIASTOLIC mm[Hg] 2019-11-24 18:10:48 60 mm[Hg] mm[Hg] Method: Sit DIASTOLIC mm[Hg] 2019-11-01 18:10:25 70 mm[Hg] mm[Hg] Method: Stand PULSE 2019-11-24 18:10:48 72 /min /min RESP RATE 2019-11-17 18:10:41 18 /min /min TEMP 2019-11-24 18:10:48 98.4 [degF] Procedures This patient has no known procedures. Results This patient has no known results.
--- OUTSIDE RECORDS SUMMARY | 2019-12-06 10:25 | XMS REPORT ---
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 non-dominan non-dominan t side t side Epilepsy, Epilepsy, Diagnosis Active Sonja unspecified unspecified 2-13 Moore , not , not intractable intractable , without , without status status epilepticus epilepticus Essential Essential Diagnosis Active Sonja (primary) (primary) 2-13 Moore hypertensio hypertensio n n Hyperlipide Hyperlipide Diagnosis Active Sonja ford, ford, 2-13 Moore unspecified unspecified Pain frequent Pain Mgmt Resolve 2019-11-10 Yamile pain d 2-13 12:55:00 (Clay) 11:00: Muller [id number] Respiratory dyspnea Respirator Active Yamile present y 2-13 (Clay) 11:00: Muller [id number] Integument skin Integument Resolve 2019-11-03 Yamile integrity d 2-13 11:55:00 (Clay) risk 11:00: Muller [id number] Elimination urinary Eliminatio Resolve 2019-11-03 Yamile incontinenc n d 2-13 11:55:00 (Clay) e 11:00: Muller [id number] Neuro confusion Neuro/Emot Active 2020 Yamile present ion 2-13 (Clay) 11:00: Muller [id number] Neuro anxiety Neuro/Emot Active Yamile present ion 2-13 (Clay) 11:00: Muller [id number] Activity ADL Activity Active 2020-0 Yamile assistance 2-13 (Clay) required 11:00: [id number] Activity self-care Activity Active 2020-0 Yamile deficit 2-13 (Clay) 11:00: [id number] Safety fall risk Safety Active 2020-0 Yamile factor 2-13 (Clay) present 11:00: [id number] Safety risk for Safety Active 2020-0 Yamile hospitaliza 2-13 (Clay) tion 11:00: [id number] Safety can be left Safety Active 2019-0 Yamile alone for 2-13 (Clay) only short 11:00: Muller periods [id number] Medication oral med Meds Active 2019-0 Yamile assistance 2-13 (Clay) required 11:00: [id number] Medication potential Meds Active 2019-0 Yamile clinically 2-13 (Clay) significant 11:00: Muller medication [id number] issue Bed transfer PT/OT: Bed Active Nereyda Mobility/Tr deficit: Mobility/T 2-21 Wallace ansfer shower/tub ransfer 13:18: [id number] 00 Balance/End balance/service learning coordinator PT/OT: Active 20200 Nereyda urance rdination Balance/En 2-21 Wallace deficit durance 13:18: [id number] 00 Balance/End endurance PT/OT: Active 2020-0 Nereyda urance deficit Balance/En 2-21 Wallace durance 13:18: [id number] 00 Gait/Locomo gait PT/OT: Active 2020-0 Nereyda tion assistive Gait/Locom 2-21 Wallace problems device otion 13:18: [id number] present 00 Gait/Locomo gait PT/OT: Active 2020-0 Nereyda tion deficit Gait/Locom 2-21 Wallace problems otion 13:18: [id number] 00 Elimination urinary Eliminatio Active Sonja incontinenc n 11-10 Oscar e 12:55: 00 Musculoskel requires Musculoske Resolve 2019-2019-11-10 Sonja etal human letal d 11-10 12:55:00 Moore assist to 12:55: leave home 00 Allergies, Adverse Reactions, Alerts [...] Stevanovic Unknown Unknown 10 billion 10 billion 10-29 MD,Radomir cell cell capsule capsule Depakote Depakote Yes Stevanovic Unknown Unknown 125 mg 125 mg 2-25 MD,Radomir tablet,lanie tablet,lanie yed release yed release Vital Signs Vital Name Observation Time Observation Value Comments SYSTOLIC mm[Hg] 2019-11-12 18:10:36 120 mm[Hg] mm[Hg] Method: Sit SYSTOLIC mm[Hg] 2019-11-01 18:10:25 126 mm[Hg] mm[Hg] Method: Stand DIASTOLIC mm[Hg] 2019-11-12 18:10:36 80 mm[Hg] mm[Hg] Method: Sit DIASTOLIC mm[Hg] 2019-11-01 18:10:25 70 mm[Hg] mm[Hg] Method: Stand PULSE 2019-11-12 18:10:36 68 /min /min RESP RATE 2019-11-10 18:10:34 18 /min /min TEMP 2019-11-12 18:10:36 97.9 [degF] Procedures This patient has no known procedures. Results This patient has no known results.
--- OUTSIDE RECORDS SUMMARY | 2019-12-06 10:25 | XMS REPORT ---
:1955 Author Organization [facility] Care Team Providers Name Role Phone Unavailable [...] Moore unspecified unspecified Pain frequent Pain Mgmt Active 0 Yamile pain 2-13 (Clay) 11:00: Muller [id number] Respiratory dyspnea Respirator Active 20200 Yamile present y 2-13 (Clay) 11:00: Muller [id number] Integument skin Integument Resolve 2019-11-03 Yamile integrity d 2-13 11:55:00 (Clay) risk 11:00: Muller [id number] Elimination urinary Eliminatio Resolve 0 2019-11-03 Yamile incontinenc n d 2-13 11:55:00 (Clay) e 11:00: Muller [id number] Neuro confusion Neuro/Emot Active 2020-0 Yamile present ion 2-13 (Clay) 11:00: Muller [id number] Neuro anxiety Neuro/Emot Active 2020-0 Yamile present ion 2-13 (Clay) 11:00: Muller [id number] Activity ADL Activity Active 20200 Yamile assistance 2-13 (Clay) required 11:00: [id number] Activity self-care Activity Active 2020-0 Yamile deficit 2-13 (Clay) 11:00: [id number] Safety fall risk Safety Active 2020-0 Yamile factor 2-13 (Clay) present 11:00: [id number] Safety risk for Safety Active 2020-0 Yamile hospitaliza 2-13 (Clay) tion 11:00: [id number] Safety can be left Safety Active 2020-0 Yamile alone for 2-13 (Clay) only short 11:00: Muller periods [id number] Medication oral med Meds Active 2019-0 Yamile assistance 2-13 (Clay) required 11:00: [id number] Medication potential Meds Active 2020-0 Yamile clinically 2-13 (Clay) significant 11:00: Muller medication [id number] issue Bed transfer PT/OT: Bed Active 2020-0 Nereyda Mobility/Tr deficit: Mobility/T 2-21 Wallace ansfer shower/tub ransfer 13:18: [id number] 00 Balance/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 balance/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 coordinator PT/OT: Active 2020-0 Nereyda urance rdination Balance/En 2-21 Wallace deficit durance 13:18: [id number] 00 Balance/End endurance PT/OT: Active 2020-0 Nereyda urance deficit Balance/En 2-21 Wallace durance 13:18: [id number] 00 Gait/Locomo gait PT/OT: Active 2020-0 Nereyda tion assistive Gait/Locom 2-21 Wallace problems device otion 13:18: [id number] present 00 Gait/Locomo gait PT/OT: Active 2020-0 Nereyda tion deficit Gait/Locom 2-21 Wallace problems otion 13:18: [id number] 00 Allergies, Adverse Reactions, Alerts Allergy Allergy Status Severity Reaction(s) Onset Inactive Treating Comments Name Type Date Date Clinician Unknown None Active Unknown None Unknown No Known Allergies For This Patient Medications Ordered Filled Start Stop Current Ordering Indication Dosage Frequency Signature Comments Components Medication Medication Date Date Medication? Clinician (SIG) Name Name potassium potassium 2019-0 Yes Stevanovic Unknown Unknown chloride ER chloride ER 2-13 ,Fozia 10 mEq 10 mEq tablet,exte tablet,exte nded nded release release Depakote Depakote 2019-0 Yes Stevanovic Unknown Unknown 500 mg 500 mg 2-13 MD,Radomir tablet,lanie tablet,lanie yed release yed release Depakote Depakote 2019-0 Yes Stevanovic Unknown Unknown 125 mg 125 mg 2-13 MD,Radomir tablet,lanie tablet,lanie yed release yed release Probiotic Probiotic 2019-0 Yes Stevanovic Unknown Unknown 10 billion 10 billion 2-13 MD,Radomir cell cell capsule capsule Vital Signs Vital Name Observation Time Observation Value Comments SYSTOLIC mm[Hg] 2019-11-06 18:10:30 118 mm[Hg] mm[Hg] Method: Sit SYSTOLIC mm[Hg] 2019-11-01 18:10:25 126 mm[Hg] mm[Hg] Method: Stand DIASTOLIC mm[Hg] 2019-11-06 18:10:30 60 mm[Hg] mm[Hg] Method: Sit DIASTOLIC mm[Hg] 2019-11-01 18:10:25 70 mm[Hg] mm[Hg] Method: Stand PULSE 2019-11-06 18:10:30 72 /min /min RESP RATE 2019-11-06 18:10:30 18 /min /min TEMP 2019-11-06 18:10:30 98.3 [degF] Procedures This patient has no known procedures. Results This patient has no known results.
--- OUTSIDE RECORDS SUMMARY | 2019-12-06 10:25 | XMS REPORT ---
:1955 Author Organization [facility] Care Team Providers Name Role Phone Unavailable [...] Yamile pain d 2-13 12:55:00 (Clay) 11:00: [id number] Respiratory dyspnea Respirator Resolve 2019-11-17 Yamile present y d 2-13 11:00:00 (Clay) 11:00: [id number] Integument skin Integument Resolve 2019-11-03 Yamile integrity d 2-13 11:55:00 (Clay) risk 11:00: [id number] Elimination urinary Eliminatio Resolve 2019-11-03 Yamile incontinenc n d 2-13 11:55:00 (Clay) e 11:00: [id number] Neuro confusion Neuro/Emot Active Yamile present ion 2-13 (Clay) 11:00: [id number] Neuro anxiety Neuro/Emot Active Yamile present ion 2-13 (Clay) 11:00: [id number] Activity ADL Activity Active 2019-0 Yamile assistance 2-13 (Clay) required 11:00: [id number] Activity self-care Activity Active 2020-0 Yamile deficit 2-13 (Clay) 11:00: [id number] Safety fall risk Safety Active 2020-0 Yamile factor 2-13 (Clay) present 11:00: [id number] Safety risk for Safety Active 2019-0 Yamile hospitaliza 2-13 (Clay) tion 11:00: [id number] Safety can be left Safety Active 2019-0 Yamile alone for 2-13 (Clay) only short 11:00: [id number] Medication oral med Meds Active 2019-0 Yamile assistance 2-13 (Clay) required 11:00: [id number] Medication potential Meds Active 2019-0 Yamile clinically 2-13 (Clay) significant 11:00: Muller medication [id number] issue Bed transfer PT/OT: Bed Active Nereyda Mobility/Tr deficit: Mobility/T 2-21 Wallace ansfer shower/tub ransfer 13:18: [id number] 00 Balance/End balance/cook vegetable PT/OT: Active Nereyda urance rdination Balance/En 2-21 Wallace deficit durance 13:18: [id number] 00 Balance/End endurance PT/OT: Active 2019-0 Nereyda urance deficit Balance/En 2-21 Wallace durance 13:18: [id number] 00 Gait/Locomo gait PT/OT: Active 2019- Nereyda tion assistive Gait/Locom 2-21 Wallace problems device otion 13:18: [id number] present 00 Gait/Locomo gait PT/OT: Active 2019- Nereyda tion deficit Gait/Locom 2-21 Wallace problems otion 13:18: [id number] 00 Elimination urinary Eliminatio Resolve 2019-11-17 Sonja incontinenc n d 11-10 11:00:00 Oscar e 12:55: 00 Musculoskel requires Musculoske Resolve 2019-11-10 Sonja etal human letal d 11-10 12:55:00 Moore assist to 12:55: leave home 00 Musculoskel requires Musculoske Active Sonja callaway human letal 3-03 Moore assist to 11:00: leave home 00 [...] Observation Time Observation Value Comments SYSTOLIC mm[Hg] 2019-11-17 18:10:41 110 mm[Hg] mm[Hg] Method: Sit SYSTOLIC mm[Hg] 2019-11-01 18:10:25 126 mm[Hg] mm[Hg] Method: Stand DIASTOLIC mm[Hg] 2019-11-17 18:10:41 60 mm[Hg] mm[Hg] Method: Sit DIASTOLIC mm[Hg] 2019-11-01 18:10:25 70 mm[Hg] mm[Hg] Method: Stand PULSE 2019-11-17 18:10:41 72 /min /min RESP RATE 2019-11-17 18:10:41 18 /min /min TEMP 2019-11-17 18:10:41 98.2 [degF] Procedures This patient has no known procedures. Results This patient has no known results.
--- OUTSIDE RECORDS SUMMARY | 2019-12-06 10:25 | XMS REPORT ---
:1955 Author Organization [facility] Care Team Providers Name Role Phone Unavailable [...] pain d 2-13 12:55:00 (Clay) 11:00: Muller [id number] Respiratory dyspnea Respirator Active Yamile present y 2-13 (Clay) 11:00: Muller [id number] Integument skin Integument Resolve 2019-11-03 Yamile integrity d 2-13 11:55:00 (Clay) risk 11:00: Muller [id number] Elimination urinary Eliminatio Resolve 2019-11-03 Yamile incontinenc n d 2-13 11:55:00 (Clay) e 11:00: Muller [id number] Neuro confusion Neuro/Emot Active 2020 Yamile present ion 2-13 (Clay) 11:00: Muller [id number] Neuro anxiety Neuro/Emot Active Yamile present ion 2-13 (Clay) 11:00: Muller [id number] Activity ADL Activity Active 2020-0 Yamile assistance 2-13 (Clay) required 11:00: [id number] Activity self-care Activity Active 2020-0 Yamile deficit 2-13 (Clay) 11:00: [id number] Safety fall risk Safety Active 2020-0 Yamile factor 2-13 (Clay) present 11:00: [id number] Safety risk for Safety Active 2020-0 Yamile hospitaliza 2-13 (Clay) tion 11:00: [id number] Safety can be left Safety Active 2019-0 Yamile alone for 2-13 (Clay) only short 11:00: Muller periods [id number] Medication oral med Meds Active 2019-0 Yamile assistance 2-13 (Clay) required 11:00: [id number] Medication potential Meds Active 2019-0 Yamile clinically 2-13 (Clay) significant 11:00: Muller medication [id number] issue Bed transfer PT/OT: Bed Active Nereyda Mobility/Tr deficit: Mobility/T 2-21 Wallace ansfer shower/tub ransfer 13:18: [id number] 00 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
--- OUTSIDE RECORDS SUMMARY | 2019-12-06 10:25 | XMS REPORT ---
:1955 Author Organization [facility] Care Team Providers Name Role Phone Unavailable [...] 0 Yamile pain 2-13 (Clay) 11:00: Muller [id number] Respiratory dyspnea Respirator Active 20200 Yamile present y 2-13 (Clay) 11:00: Muller [id number] Integument skin Integument Resolve 2019-11-03 Yamile integrity d 2-13 11:55:00 (Clay) risk 11:00: Muller [id number] Elimination urinary Eliminatio Resolve 0 2019-11-03 Yamile incontinenc n d 2-13 11:55:00 (Clay) e 11:00: Muller [id number] Neuro confusion Neuro/Emot Active 2020-0 Yamile present ion 2-13 (Clay) 11:00: Muller [id number] Neuro anxiety Neuro/Emot Active 2020-0 Yamile present ion 2-13 (Clay) 11:00: Muller [id number] Activity ADL Activity Active 20200 Yamile assistance 2-13 (Clay) required 11:00: [id number] Activity self-care Activity Active 2020-0 Yamile deficit 2-13 (Clay) 11:00: [id number] Safety fall risk Safety Active 2020-0 Yamile factor 2-13 (Clay) present 11:00: [id number] Safety risk for Safety Active 2020-0 Yamile hospitaliza 2-13 (Clay) tion 11:00: [id number] Safety can be left Safety Active 2019-0 Yamile alone for 2-13 (Clay) only short 11:00: Muller periods [id number] Medication oral med Meds Active 0 Yamile assistance 2-13 (Clay) required 11:00: [id number] Medication potential Meds Active 2019-0 Yamile clinically 2-13 (Clay) significant 11:00: Muller medication [id number] issue Allergies, Adverse Reactions, Alerts Allergy Allergy [...] tablet,lanie yed release yed release Probiotic Probiotic 0 Yes Stevanovic Unknown Unknown 10 billion 10 [...]
--- OUTSIDE RECORDS SUMMARY | 2019-12-06 10:25 | XMS REPORT ---
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-dominan non-dominan t side t side Epilepsy, Epilepsy, Diagnosis Active Nereyda unspecified unspecified 2-13 Wallace , not , not [id number] intractable intractable , without , without status status epilepticus epilepticus Essential Essential Diagnosis Active Nereyda (primary) (primary) 2-13 Wallace hypertensio hypertensio [id number] n n Hyperlipide Hyperlipide Diagnosis Active Nereyda ford, ford, 2-13 Wallace unspecified unspecified [id number] Pain frequent Pain Mgmt Resolve 2019-11-10 Yamile pain d 2-13 12:55:00 (Clay) 11:00: [id number] Respiratory dyspnea Respirator Resolve 2019-11-17 Yamile present y d 2-13 11:00:00 (Clay) 11:00: [id number] Integument skin Integument Resolve 2019-11-03 Yamile integrity d 2-13 11:55:00 (Clay) risk 11:00: [id number] Elimination urinary Eliminatio Resolve 2019-11-03 Yamile incontinenc n d 2-13 11:55:00 (Clay) e 11:00: [id number] Neuro confusion Neuro/Emot Active Yamile present ion 2-13 (Clay) 11:00: [id number] Neuro anxiety Neuro/Emot Active 2020-0 Yamile present ion 2-13 (Clay) 11:00: [id number] Activity ADL Activity Active 2019-0 Yamile assistance 2-13 (Clay) required 11:00: [id number] Activity self-care Activity Active 2020-0 Yamile deficit 2-13 (Clay) 11:00: [id number] Safety fall risk Safety Active 2019-0 Yamile factor 2-13 (Clay) present 11:00: [id number] Safety risk for Safety Active 2019-0 Yamile hospitaliza 2-13 (Clay) tion 11:00: [id number] Safety can be left Safety Active 2019-0 Yamile alone for 2-13 (Clay) only short 11:00: Muller [id number] Medication oral med Meds Active Yamile assistance 2-13 (Clay) required 11:00: [id number] Medication potential Meds Active Yamile clinically 2-13 (Clay) significant 11:00: Muller medication [id number] issue Bed transfer PT/OT: Bed Active Nereyda Mobility/Tr deficit: Mobility/T 2-21 Wallace ansfer shower/tub ransfer 13:18: [id number] 00 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/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 PT/OT: Active Nereyda urance rdination Balance/En 2-21 Wallace deficit durance 13:18: [id number] 00 Balance/End endurance PT/OT: Active Nereyda urance deficit Balance/En 2-21 Wallace durance 13:18: [id number] 00 Gait/Locomo gait PT/OT: Active Nereyda tion assistive Gait/Locom 2-21 Wallace problems device otion 13:18: [id number] present 00 Gait/Locomo gait PT/OT: Active 2020- Nereyda tion deficit Gait/Locom 2-21 Wallace problems otion 13:18: [id number] 00 Elimination urinary Eliminatio Resolve 2019-11-17 Sonja [...] Stevanovic Unknown Unknown chloride ER chloride ER - MD,Radomir 10 mEq 10 mEq tablet,exte tablet,exte [...] Observation Time Observation Value Comments SYSTOLIC mm[Hg] 2019-11-19 18:10:43 140 mm[Hg] mm[Hg] Method: Sit SYSTOLIC mm[Hg] 2019-11-01 18:10:25 126 mm[Hg] mm[Hg] Method: Stand DIASTOLIC mm[Hg] 2019-11-19 18:10:43 90 mm[Hg] mm[Hg] Method: Sit DIASTOLIC mm[Hg] 2019-11-01 18:10:25 70 mm[Hg] mm[Hg] Method: Stand PULSE 2019-11-19 18:10:43 68 /min /min RESP RATE 2019-11-17 18:10:41 18 /min /min TEMP 2019-11-19 18:10:43 98.6 [degF] Procedures This patient has no known procedures. Results This patient has no known results.
--- OUTSIDE RECORDS SUMMARY | 2019-12-06 10:25 | XMS REPORT ---
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 non-dominan non-dominan t side t side Epilepsy, Epilepsy, Diagnosis Active Nereyda unspecified unspecified 2-13 Wallace , not , not [id number] intractable intractable , without , without status status epilepticus epilepticus Essential Essential Diagnosis Active Nereyda (primary) (primary) 2-13 Wallace hypertensio hypertensio [id number] n n Hyperlipide Hyperlipide Diagnosis Active Nereyda ford, ford, 2-13 Wallace unspecified unspecified [id number] Pain frequent Pain Mgmt Resolve 2019-11-10 Yamile pain d 2-13 12:55:00 (Clay) 11:00: [id number] Respiratory dyspnea Respirator Resolve 2019-11-17 Yamile present y d 2-13 11:00:00 (Clay) 11:00: [id number] Integument skin Integument Resolve 2019-11-03 Yamile integrity d 2-13 11:55:00 (Clay) risk 11:00: [id number] Elimination urinary Eliminatio Resolve 2019-11-03 Yamile incontinenc n d 2-13 11:55:00 (Clay) e 11:00: [id number] Neuro confusion Neuro/Emot Active Yamile present ion 2-13 (Clay) 11:00: [id number] Neuro anxiety Neuro/Emot Active 2020-0 Yamile present ion 2-13 (Clay) 11:00: [id number] Activity ADL Activity Active 2019-0 Yamile assistance 2-13 (Clay) required 11:00: [id number] Activity self-care Activity Active 2020-0 Yamile deficit 2-13 (Clay) 11:00: [id number] Safety fall risk Safety Active 2019-0 Yamile factor 2-13 (Clay) present 11:00: [id number] Safety risk for Safety Active 2019-0 Yamile hospitaliza 2-13 (Clay) tion 11:00: [id number] Safety can be left Safety Active 2019-0 Yamile alone for 2-13 (Clay) only short 11:00: Muller [id number] Medication oral med Meds Active Yamile assistance 2-13 (Clay) required 11:00: [id number] Medication potential Meds Active Yamile clinically 2-13 (Clay) significant 11:00: Muller medication [id number] issue Bed transfer PT/OT: Bed Active Nereyda Mobility/Tr deficit: Mobility/T 2-21 Wallace ansfer shower/tub ransfer 13:18: [id number] 00 Balance/End balance/assisted living coordinator PT/OT: Active Nereyda urance rdination Balance/En 2-21 Wallace deficit durance 13:18: [id number] 00 Balance/End endurance PT/OT: Active Nereyda urance deficit Balance/En 2-21 Wallace durance 13:18: [id number] 00 Gait/Locomo gait PT/OT: Active Nereyda tion assistive Gait/Locom 2-21 Wallace problems device otion 13:18: [id number] present 00 Gait/Locomo gait PT/OT: Active 2020- Nereyda tion deficit Gait/Locom 2-21 Wallace problems otion 13:18: [id number] 00 Elimination urinary Eliminatio Resolve 2019-11-17 Sonja [...]
--- OUTSIDE RECORDS SUMMARY | 2019-12-06 10:25 | XMS REPORT ---
:1955 Author Organization [facility] Care Team Providers Name Role Phone Unavailable [...] Yamile pain d 2-13 12:55:00 (Clay) 11:00: [id number] Respiratory dyspnea Respirator Resolve 2019-11-17 Yamile present y d 2-13 11:00:00 (Clay) 11:00: [id number] Integument skin Integument Resolve 2019-11-03 Yamile integrity d 2-13 11:55:00 (Clay) risk 11:00: [id number] Elimination urinary Eliminatio Resolve 2019-11-03 Yamile incontinenc n d 2-13 11:55:00 (Clay) e 11:00: [id number] Neuro confusion Neuro/Emot Active Yamile present ion 2-13 (Clay) 11:00: [id number] Neuro anxiety Neuro/Emot Active Yamile present ion 2-13 (Clay) 11:00: [id number] Activity ADL Activity Active 2019-0 Yamile assistance 2-13 (Clay) required 11:00: [id number] Activity self-care Activity Active 2020-0 Yamile deficit 2-13 (Clay) 11:00: [id number] Safety fall risk Safety Active 2020-0 Yamile factor 2-13 (Clay) present 11:00: [id number] Safety risk for Safety Active 2019-0 Yamile hospitaliza 2-13 (Clay) tion 11:00: [id number] Safety can be left Safety Active 2019-0 Yamile alone for 2-13 (Clay) only short 11:00: [id number] Medication oral med Meds Active 2019-0 Yamile assistance 2-13 (Clay) required 11:00: [id number] Medication potential Meds Active 2019-0 Yamile clinically 2-13 (Clay) significant 11:00: Mulelr medication [id number] issue Bed transfer PT/OT: Bed Active Nereyda Mobility/Tr deficit: Mobility/T 2-21 Wallace ansfer shower/tub ransfer 13:18: [id number] 00 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
--- OUTSIDE RECORDS SUMMARY | 2019-12-06 10:25 | XMS REPORT ---
:1955 Author Organization [facility] Care Team Providers Name Role Phone Unavailable [...] pain d 2-13 12:55:00 (Clay) 11:00: Muller [id number] Respiratory dyspnea Respirator Active Yamile present y 2-13 (Clay) 11:00: Muller [id number] Integument skin Integument Resolve 2019-11-03 Yamile integrity d 2-13 11:55:00 (Clay) risk 11:00: Muller [id number] Elimination urinary Eliminatio Resolve 2019-11-03 Yamile incontinenc n d 2-13 11:55:00 (Clay) e 11:00: Muller [id number] Neuro confusion Neuro/Emot Active 2020 Yamile present ion 2-13 (Clay) 11:00: Muller [id number] Neuro anxiety Neuro/Emot Active Yamile present ion 2-13 (Clay) 11:00: Muller [id number] Activity ADL Activity Active 2020-0 Yamile assistance 2-13 (Clay) required 11:00: [id number] Activity self-care Activity Active 2020-0 Yamile deficit 2-13 (Clay) 11:00: [id number] Safety fall risk Safety Active 2020-0 Yamile factor 2-13 (Clay) present 11:00: [id number] Safety risk for Safety Active 2020-0 Yamile hospitaliza 2-13 (Clay) tion 11:00: [id number] Safety can be left Safety Active 2019-0 Yamile alone for 2-13 (Clay) only short 11:00: Mluler periods [id number] Medication oral med Meds Active 2019-0 Yamile assistance 2-13 (Clay) required 11:00: [id number] Medication potential Meds Active 2019-0 Yamile clinically 2-13 (Clay) significant 11:00: Muller medication [id number] issue Bed transfer PT/OT: Bed Active Nereyda Mobility/Tr deficit: Mobility/T 2-21 Wallace ansfer shower/tub ransfer 13:18: [id number] 00 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: Active 20200 Nereyda urance rdination Balance/En 2-21 Wallace deficit durance 13:18: [id number] 00 Balance/End endurance PT/OT: Active 2020-0 Nereyda urance deficit Balance/En 2-21 Wallace durance 13:18: [id number] 00 Gait/Locomo gait PT/OT: Active 2020-0 Nereyda tion assistive Gait/Locom 2-21 Wallace problems device otion 13:18: [id number] present 00 Gait/Locomo gait PT/OT: Active 2020-0 Nereyda tion deficit Gait/Locom 2-21 Wallace problems otion 13:18: [id number] 00 Elimination urinary Eliminatio Active Sonja incontinenc [...] Observation Time Observation Value Comments SYSTOLIC mm[Hg] 2019-11-10 18:10:34 128 mm[Hg] mm[Hg] Method: Sit SYSTOLIC mm[Hg] 2019-11-01 18:10:25 126 mm[Hg] mm[Hg] Method: Stand DIASTOLIC mm[Hg] 2019-11-10 18:10:34 60 mm[Hg] mm[Hg] Method: Sit DIASTOLIC mm[Hg] 2019-11-01 18:10:25 70 mm[Hg] mm[Hg] Method: Stand PULSE 2019-11-10 18:10:34 76 /min /min RESP RATE 2019-11-10 18:10:34 18 /min /min TEMP 2019-11-10 18:10:34 98.1 [degF] Procedures This patient has no known procedures. Results This patient has no known results.
--- OUTSIDE RECORDS SUMMARY | 2019-12-06 10:25 | XMS REPORT ---
:1955 Author Organization [facility] Care Team Providers Name Role Phone [...] 0 Yamile pain 2-13 (Clay) 11:00: Muller [id number] Respiratory dyspnea Respirator Active 20200 Yamile present y 2-13 (Clay) 11:00: Muller [id number] Integument skin Integument Resolve 2019-11-03 Yamile integrity d 2-13 11:55:00 (Clay) risk 11:00: Muller [id number] Elimination urinary Eliminatio Resolve 0 2019-11-03 Yamile incontinenc n d 2-13 11:55:00 (Clay) e 11:00: Muller [id number] Neuro confusion Neuro/Emot Active 2020-0 Yamile present ion 2-13 (Clay) 11:00: Muller [id number] Neuro anxiety Neuro/Emot Active 2020-0 Yamile present ion 2-13 (Clay) 11:00: Muller [id number] Activity ADL Activity Active 20200 Yamile assistance 2-13 (Clay) required 11:00: [id number] Activity self-care Activity Active 2020-0 Yamile deficit 2-13 (Clay) 11:00: [id number] Safety fall risk Safety Active 2020-0 Yamile factor 2-13 (Clay) present 11:00: [id number] Safety risk for Safety Active 2020-0 Yamile hospitaliza 2-13 (Clay) tion 11:00: [id number] Safety can be left Safety Active 2020-0 Yamile alone for 2-13 (Clay) only short 11:00: Muller periods [id number] Medication oral med Meds Active 2019-0 Yamile assistance 2-13 (Clay) required 11:00: [id number] Medication potential Meds Active 2020-0 Yamile clinically 2-13 (Clay) significant 11:00: Muller medication [id number] issue Bed transfer PT/OT: Bed Active 2020-0 Nereyda Mobility/Tr deficit: Mobility/T 2-21 Wallace ansfer shower/tub ransfer 13:18: [id number] 00 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
--- OUTSIDE RECORDS SUMMARY | 2019-12-06 10:25 | XMS REPORT ---
:1955 Author Organization [facility] Care Team Providers Name Role Phone Unavailable [...] 0 Yamile pain 2-13 (Clay) 11:00: Muller [id number] Respiratory dyspnea Respirator Active 20200 Yamile present y 2-13 (Clay) 11:00: Muller [id number] Integument skin Integument Resolve 2019-11-03 Yamile integrity d 2-13 11:55:00 (Clay) risk 11:00: Muller [id number] Elimination urinary Eliminatio Resolve 0 2019-11-03 Yamile incontinenc n d 2-13 11:55:00 (Clay) e 11:00: Muller [id number] Neuro confusion Neuro/Emot Active 2020-0 Yamile present ion 2-13 (Clay) 11:00: Muller [id number] Neuro anxiety Neuro/Emot Active 2020-0 Yamile present ion 2-13 (Clay) 11:00: Muller [id number] Activity ADL Activity Active 20200 Yamile assistance 2-13 (Clay) required 11:00: [id number] Activity self-care Activity Active 2020-0 Yamile deficit 2-13 (Clay) 11:00: [id number] Safety fall risk Safety Active 2020-0 Yamile factor 2-13 (Clay) present 11:00: [id number] Safety risk for Safety Active 2020-0 Yamile hospitaliza 2-13 (Clay) tion 11:00: [id number] Safety can be left Safety Active 2019-0 Yamile alone for 2-13 (Clay) only short 11:00: Muller periods [id number] Medication oral med Meds Active 0 Yamile assistance 2-13 (Clay) required 11:00: [id number] Medication potential Meds Active 2019-0 Yamile clinically 2-13 (Clay) significant 11:00: Muller medication [id number] issue Allergies, Adverse Reactions, Alerts Allergy Allergy [...]
--- OUTSIDE RECORDS SUMMARY | 2019-12-06 10:25 | XMS REPORT ---
:1955 Author Organization [facility] Care Team Providers Name Role Phone Unavailable [...] pain d 2-13 12:55:00 (Clay) 11:00: Muller [id number] Respiratory dyspnea Respirator Active Yamile present y 2-13 (Clay) 11:00: Muller [id number] Integument skin Integument Resolve 2019-11-03 Yamile integrity d 2-13 11:55:00 (Clay) risk 11:00: Muller [id number] Elimination urinary Eliminatio Resolve 2019-11-03 Yamile incontinenc n d 2-13 11:55:00 (Clay) e 11:00: Muller [id number] Neuro confusion Neuro/Emot Active 2020 Yamile present ion 2-13 (Clay) 11:00: Muller [id number] Neuro anxiety Neuro/Emot Active Yamile present ion 2-13 (Clay) 11:00: Muller [id number] Activity ADL Activity Active 2020-0 Yamile assistance 2-13 (Clay) required 11:00: [id number] Activity self-care Activity Active 2020-0 Yamile deficit 2-13 (Clay) 11:00: [id number] Safety fall risk Safety Active 2020-0 Yamile factor 2-13 (Clay) present 11:00: [id number] Safety risk for Safety Active 2020-0 Yamile hospitaliza 2-13 (Clay) tion 11:00: [id number] Safety can be left Safety Active 2019-0 Yamile alone for 2-13 (Clay) only short 11:00: Muller periods [id number] Medication oral med Meds Active 2019-0 Yamile assistance 2-13 (Clay) required 11:00: [id number] Medication potential Meds Active 2019-0 Yamile clinically 2-13 (Clay) significant 11:00: Muller medication [id number] issue Bed transfer PT/OT: Bed Active Nereyda Mobility/Tr deficit: Mobility/T 2-21 Wallace ansfer shower/tub ransfer 13:18: [id number] 00 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
--- OUTSIDE RECORDS SUMMARY | 2019-12-06 10:25 | XMS REPORT ---
:1955 Author Organization [facility] Care Team Providers Name Role Phone Unavailable [...] pain d 2-13 12:55:00 (Clay) 11:00: Muller [id number] Respiratory dyspnea Respirator Active Yamile present y 2-13 (Clay) 11:00: Muller [id number] Integument skin Integument Resolve 2019-11-03 Yamile integrity d 2-13 11:55:00 (Clay) risk 11:00: Muller [id number] Elimination urinary Eliminatio Resolve 2019-11-03 Yamile incontinenc n d 2-13 11:55:00 (Clay) e 11:00: Muller [id number] Neuro confusion Neuro/Emot Active 2020 Yamile present ion 2-13 (Clay) 11:00: Muller [id number] Neuro anxiety Neuro/Emot Active Yamile present ion 2-13 (Clay) 11:00: Muller [id number] Activity ADL Activity Active 2020-0 Yamile assistance 2-13 (Clay) required 11:00: [id number] Activity self-care Activity Active 2020-0 Yamile deficit 2-13 (Clay) 11:00: [id number] Safety fall risk Safety Active 2020-0 Yamile factor 2-13 (Clay) present 11:00: [id number] Safety risk for Safety Active 2020-0 Yamile hospitaliza 2-13 (Clay) tion 11:00: [id number] Safety can be left Safety Active 2019-0 Yamile alone for 2-13 (Clay) only short 11:00: Mluler periods [id number] Medication oral med Meds Active 2019-0 Yamile assistance 2-13 (Clay) required 11:00: [id number] Medication potential Meds Active 2019-0 Yamile clinically 2-13 (Clay) significant 11:00: Muller medication [id number] issue Bed transfer PT/OT: Bed Active Nereyda Mobility/Tr deficit: Mobility/T 2-21 Wallace ansfer shower/tub ransfer 13:18: [id number] 00 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
--- OUTSIDE RECORDS SUMMARY | 2019-12-06 10:25 | XMS REPORT ---
:1955 Author Organization [facility] Care Team Providers Name Role Phone Unavailable Unavailable Unavailable Problems Condition Condition Condition Status Onset Resolution Last Treating Comments Name Details Category Date Date Treatment Clinician Date Hemiplegia Hemiplegia Diagnosis Active Nereyda and and 2-13 Wallace hemiparesis hemiparesis [id number] following following cerebral cerebral infarction infarction affecting affecting left left non-dominan non-dominan t side t side Epilepsy, Epilepsy, Diagnosis Active Nereyda unspecified unspecified 2-13 Wallace , not , not [id number] intractable intractable , without , without status status epilepticus epilepticus Essential Essential Diagnosis Active Nereyda (primary) (primary) 2-13 Wallace hypertensio hypertensio [id number] n n Hyperlipide Hyperlipide Diagnosis Active Nereyda ford, ford, 2-13 Wallace unspecified unspecified [id number] Pain frequent Pain Mgmt Resolve 2019-11-10 Yamile pain d 2-13 12:55:00 (Clay) 11:00: [id number] Respiratory dyspnea Respirator Resolve 2019-11-17 Yamile present y d 2-13 11:00:00 (Clay) 11:00: [id number] Integument skin Integument Resolve 2019-11-03 Yamile integrity d 2-13 11:55:00 (Clay) risk 11:00: [id number] Elimination urinary Eliminatio Resolve 2019-11-03 Yamile incontinenc n d 2-13 11:55:00 (Clay) e 11:00: [id number] Neuro confusion Neuro/Emot Active Yamile present ion 2-13 (Clay) 11:00: [id number] Neuro anxiety Neuro/Emot Active 2020-0 Yamile present ion 2-13 (Clay) 11:00: [id number] Activity ADL Activity Active 2019-0 Yamile assistance 2-13 (Clay) required 11:00: [id number] Activity self-care Activity Active 2020-0 Yamile deficit 2-13 (Clay) 11:00: [id number] Safety fall risk Safety Active 2019-0 Yamile factor 2-13 (Clay) present 11:00: [id number] Safety risk for Safety Active 2019-0 Yamile hospitaliza 2-13 (Clay) tion 11:00: [id number] Safety can be left Safety Active 2019-0 Yamile alone for 2-13 (Clay) only short 11:00: Muller [id number] Medication oral med Meds Active Yamile assistance 2-13 (Clay) required 11:00: [id number] Medication potential Meds Active Yamile clinically 2-13 (Clay) significant 11:00: Muller medication [id number] issue Bed transfer PT/OT: Bed Active Nereyda Mobility/Tr deficit: Mobility/T 2-21 Wallace ansfer shower/tub ransfer 13:18: [id number] 00 Balance/End balance/tight cooper PT/OT: Active Nereyda urance rdination Balance/En 2-21 Wallace deficit durance 13:18: [id number] 00 Balance/End endurance PT/OT: Active Nereyda urance deficit Balance/En 2-21 Wallace durance 13:18: [id number] 00 Gait/Locomo gait PT/OT: Active Nereyda tion assistive Gait/Locom 2-21 Wallace problems device otion 13:18: [id number] present 00 Gait/Locomo gait PT/OT: Active 2020- Nereyda tion deficit Gait/Locom 2-21 Wallace problems otion 13:18: [id number] 00 Elimination urinary Eliminatio Resolve 2019-11-17 Sonja [...]
--- OUTSIDE RECORDS SUMMARY | 2019-12-06 10:25 | XMS REPORT ---
:1955 Author Organization [facility] Care Team Providers Name Role Phone Unavailable [...] Yamile pain d 2-13 12:55:00 (Clay) 11:00: [id number] Respiratory dyspnea Respirator Resolve 2019-11-17 Yamile present y d 2-13 11:00:00 (Clay) 11:00: [id number] Integument skin Integument Resolve 2019-11-03 Yamile integrity d 2-13 11:55:00 (Clay) risk 11:00: [id number] Elimination urinary Eliminatio Resolve 2019-11-03 Yamile incontinenc n d 2-13 11:55:00 (Clay) e 11:00: [id number] Neuro confusion Neuro/Emot Active Yamile present ion 2-13 (Clay) 11:00: [id number] Neuro anxiety Neuro/Emot Active Yamile present ion 2-13 (Clay) 11:00: [id number] Activity ADL Activity Active 2019-0 Yamile assistance 2-13 (Clay) required 11:00: [id number] Activity self-care Activity Active 2020-0 Yamile deficit 2-13 (Clay) 11:00: [id number] Safety fall risk Safety Active 2020-0 Yamile factor 2-13 (Clay) present 11:00: [id number] Safety risk for Safety Active 2019-0 Yamile hospitaliza 2-13 (Clay) tion 11:00: [id number] Safety can be left Safety Active 2019-0 Yamile alone for 2-13 (Clay) only short 11:00: [id number] Medication oral med Meds Active 2019-0 Yamile assistance 2-13 (Clay) required 11:00: [id number] Medication potential Meds Active 2019-0 Yamile clinically 2-13 (Clay) significant 11:00: Muller medication [id number] issue Bed transfer PT/OT: Bed Active Nereyda Mobility/Tr deficit: Mobility/T 2-21 Wallace ansfer shower/tub ransfer 13:18: [id number] 00 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
--- OUTSIDE RECORDS SUMMARY | 2019-12-06 10:25 | XMS REPORT ---
:1955 Author Organization [facility] Care Team Providers Name Role Phone Unavailable [...] pain d 2-13 12:55:00 (Clay) 11:00: Muller [id number] Respiratory dyspnea Respirator Active Yamile present y 2-13 (Clay) 11:00: Muller [id number] Integument skin Integument Resolve 2019-11-03 Yamile integrity d 2-13 11:55:00 (Clay) risk 11:00: Muller [id number] Elimination urinary Eliminatio Resolve 2019-11-03 Yamile incontinenc n d 2-13 11:55:00 (Clay) e 11:00: Muller [id number] Neuro confusion Neuro/Emot Active 2020 Yamile present ion 2-13 (Clay) 11:00: Muller [id number] Neuro anxiety Neuro/Emot Active Yamile present ion 2-13 (Clay) 11:00: Muller [id number] Activity ADL Activity Active 2020-0 Yamile assistance 2-13 (Caly) required 11:00: [id number] Activity self-care Activity Active 2020-0 Yamile deficit 2-13 (Clay) 11:00: [id number] Safety fall risk Safety Active 2020-0 Yamile factor 2-13 (Clay) present 11:00: [id number] Safety risk for Safety Active 2020-0 Yamile hospitaliza 2-13 (Clay) tion 11:00: [id number] Safety can be left Safety Active 2019-0 Yamile alone for 2-13 (Clay) only short 11:00: Muller periods [id number] Medication oral med Meds Active 2019-0 Yamile assistance 2-13 (Clay) required 11:00: [id number] Medication potential Meds Active 2019-0 Yamile clinically 2-13 (Clay) significant 11:00: Muller medication [id number] issue Bed transfer PT/OT: Bed Active Nereyda Mobility/Tr deficit: Mobility/T 2-21 Wallace ansfer shower/tub ransfer 13:18: [id number] 00 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
--- OUTSIDE RECORDS SUMMARY | 2019-12-06 10:25 | XMS REPORT ---
:1955 Author Organization [facility] Care Team Providers Name Role Phone Unavailable Unavailable Unavailable Problems Condition Condition Condition Status Onset Resolution Last Treating Comments Name Details Category Date Date Treatment Clinician Date Hemiplegia Hemiplegia Diagnosis Active Nereyda and and 2-13 Wallace hemiparesis hemiparesis [id number] following following cerebral cerebral infarction infarction affecting affecting left left non-dominan non-dominan t side t side Epilepsy, Epilepsy, Diagnosis Active Nereyda unspecified unspecified 2-13 Wallace , not , not [id number] intractable intractable , without , without status status epilepticus epilepticus Essential Essential Diagnosis Active Nereyda (primary) (primary) 2-13 Wallace hypertensio hypertensio [id number] n n Hyperlipide Hyperlipide Diagnosis Active Nereyda ford, ford, 2-13 Wallace unspecified unspecified [id number] Pain frequent Pain Mgmt Resolve 2019-11-10 Yamile pain d 2-13 12:55:00 (Clay) 11:00: [id number] Respiratory dyspnea Respirator Resolve 2019-11-17 Yamile present y d 2-13 11:00:00 (Clay) 11:00: [id number] Integument skin Integument Resolve 2019-11-03 Yamile integrity d 2-13 11:55:00 (Clay) risk 11:00: [id number] Elimination urinary Eliminatio Resolve 2019-11-03 Yamile incontinenc n d 2-13 11:55:00 (Clay) e 11:00: [id number] Neuro confusion Neuro/Emot Active Yamile present ion 2-13 (Clay) 11:00: [id number] Neuro anxiety Neuro/Emot Active 2020-0 Yamile present ion 2-13 (Clay) 11:00: [id number] Activity ADL Activity Active 2019-0 Yamile assistance 2-13 (Clay) required 11:00: [id number] Activity self-care Activity Active 2020-0 Yamile deficit 2-13 (Clay) 11:00: [id number] Safety fall risk Safety Active 2019-0 Yamile factor 2-13 (Clay) present 11:00: [id number] Safety risk for Safety Active 2019-0 Yamile hospitaliza 2-13 (Clay) tion 11:00: [id number] Safety can be left Safety Active 2019-0 Yamile alone for 2-13 (Clay) only short 11:00: Muller [id number] Medication oral med Meds Active Yamile assistance 2-13 (Clay) required 11:00: [id number] Medication potential Meds Active Yamile clinically 2-13 (Clay) significant 11:00: Muller medication [id number] issue Bed transfer PT/OT: Bed Active Nereyda Mobility/Tr deficit: Mobility/T 2-21 Wallace ansfer shower/tub ransfer 13:18: [id number] 00 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
[2019-12-06] MEDS ORDERED: Senna TAB 8.6 mg* TAB PO PRN (13:18)
[2019-12-06] MEDS: Divalproex Sprinkle CAP* 125 MG PO SCH ×2 (14:45→20:53)
[2019-12-06] MEDS: oxyCODONE TAB* 5 MG TAB PO PRN ×2 (14:46→20:57)
[2019-12-06] MEDS: Magnesium Hydroxide LIQ* 30 ML UDC PO PRN (14:56)
--- NOTE | 2019-12-06 15:37 | HP ---
HISTORY AND PHYSICAL: DATE OF ADMISSION: 12/06/19 REASON FOR ADMISSION: Left hip fracture. HISTORY OF PRESENT ILLNESS: Lara Nicole is a 64-year-old female. The patient suffered an intraparenchymal hemorrhage in 2018, which left her with a left-sided hemiparesis. 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 She normally walks with a dali walker and uses a wheelchair to get around. She has been transitioning to a quad cane. She has difficulty locking the brakes on her wheelchair on the left side due to her contracture in her left arm. Even with the extension, she finds it hard to lock the wheelchair. On 12/02/19, she was attempting to get up out of her wheelchair with a quad cane. She had locked one side of the wheelchair, the right side and was unable to lock the left. The patient unfortunately lost her balance, the wheelchair slipped away and she fell on to the floor. She was able to call for her son who helped get her into bed. The fall actually happened on 12/02/19. The patient came in to the hospital on 12/03/19 because she was still having significant pain. In the emergency room, she had x-rays taken, which showed a fracture of her left femoral neck and overriding of the fracture fragments. She was admitted to the hospital and seen in consultation by Dr. Jenkins. After discussion of the surgical options, it was decided that she would have a Girdlestone procedure. She was taken to the operating room on 12/04/19 for Girdlestone procedure on her left hip. She was made weightbearing as tolerated postop. She was felt to have physical therapy and occupational therapy needs. She is now being admitted for inpatient rehab so that she might return to independent living. PAST MEDICAL HISTORY: Significant for the hemorrhagic CVA in 2018. She also developed a seizure disorder. She had a recent hospitalization in September for status epilepticus. During that hospitalization, she was seen by Dr. Villanueva. The patient also has a history of gastroesophageal reflux disease. MEDICATIONS: Current medications include Depakote. She is also on oxycodone for pain and bowel medications as well as Tylenol. ALLERGIES: The patient has no known drug allergies. SOCIAL HISTORY: She lives in an apartment on [address]. It is a ground level apartment. Her son, Jt, lives in the apartment the next floor up. She is a nonsmoker, nondrinker. She was working with the [employer] Skills [employer] at [employer] this semester. FAMILY HISTORY: Noncontributory. REVIEW OF SYSTEMS: The patient reports no current shortness of breath or chest pain. PHYSICAL EXAMINATION VITAL SIGNS: The patient's temperature is 98.3, blood pressure is 117/72, pulse 79, respirations 16. HEENT: Her extraocular movements were intact. Tongue is midline. NECK: Supple. LUNGS: Sounded clear to auscultation bilaterally. HEART: Heart sounds are regular. S1, S2 are audible. ABDOMEN: Soft and nontender. EXTREMITIES: Her left arm has flexion contracture at the elbow and the wrist as well as the fingers. She also has a flexion contracture at the left knee. NEUROLOGIC: Sensation is slightly diminished on the left side. Muscle strength , she had a great deal of difficulty with movement in the left arm. Left leg, she had slightly more movement. FUNCTIONAL EXAM: Her transfers are dependent. ASSESSMENT: Left hip fracture status post Girdlestone procedure in a patient with a previous hemorrhagic stroke with left-sided weakness. PLAN: Integrate her into a comprehensive and therapeutic rehab program with the following goals: 1. Physical Therapy will work with the patient. They are going to work on functional transfer training, ambulation training, wheelchair mobility. 2. Occupational Therapy will see the patient, work on her activities of daily living including toileting and toilet transfers. 3. Eliquis for DVT prophylaxis. 4. Adequate analgesia. 5. For her seizure disorder, we will continue Depakote. 6. Her bowels will be regulated. 7. Calculating Machine Operator will be closely involved to make sure that any services and equipment the patient requires are in place prior to discharge. 8. Family training as appropriate. 9. Home with appropriate services. ESTIMATED LENGTH OF STAY: 17 days. [id number]/[facility] #: [id number] [facility]
[2019-12-06] MEDS: Apixaban* 2.5 MG TAB PO SCH (20:54)
[2019-12-06] MEDS: Docusate CAP* 100 MG PO SCH (20:54)
[2019-12-07 04:41] LABS: ABS Basophils 0.1 10^3/ul (0-0.2); ABS Eosinophils 0.1 10^3/ul (0-0.6); ABS Monocytes 1.3 10^3/ul (0-0.8); ABS Neutrophils 4.4 10^3/ul (1.5-7.7); Eosinophil % 0.7 %; Hematocrit 26 % (35-47); Hemoglobin 8.9 g/dL (12.0-16.0); Mean Corpuscular HGB Conc 35 g/dL (31-36); Mean Corpuscular Hemoglobin 34 pg (27-31); Mean Corpuscular Volume 97 fL (80-97); Platelet Count 275 10^3/uL (150-450); Red Blood Count 2.65 10^6 /uL (3.70-4.87); Red Cell Distribution Width 14 % (10-15); White Blood Count 7.8 10^3/uL (3.5-10.8)
[2019-12-07 05:02] LABS: Albumin 2.8 g/dL (3.2-5.2); Albumin/Globulin Ratio 1.1 (1-3); BUN/Creatinine Ratio 14.3 (8-20); Calcium 8.6 mg/dL (8.6-10.3); EGFR African American 153.4 (>60); EGFR Non-African American 126.7 (>60); Globulin 2.5 g/dL (2-4); Potassium 3.6 mmol/L (3.5-5.0); Total Bilirubin 0.4 mg/dL (0.2-1.0); Total Protein 5.3 g/dL (6.4-8.9)
[2019-12-07] MEDS: oxyCODONE TAB* 5 MG TAB PO PRN ×4 (05:15→13:33)
[2019-12-07] MEDS: Apixaban* 2.5 MG TAB PO SCH ×2 (09:00→20:20)
[2019-12-07] MEDS: Divalproex Sprinkle CAP* 125 MG PO SCH ×3 (09:01→20:20)
[2019-12-07] MEDS: Lactobacillus Acidophilus* 1 TAB PO SCH (09:02)
[2019-12-07] MEDS: Docusate CAP* 100 MG PO SCH ×2 (09:02→20:20)
[2019-12-07] MEDS: Pantoprazole TAB * 40 MG TAB PO SCH (09:03)
[2019-12-07] MEDS: Potassium Chlor TAB* 10 MEQ TAB.ER PO SCH (09:03)
--- NOTE | 2019-12-07 18:28 | PN ---
Progress Note Date of Service: 12/07/19 Note: LARA DEGROOT was visited. Therapy notes read and reviewed. Lara visited. She is working hard trying to regain her mobility. She has no complaints. Eating ok. Current Medications: Active Medications Generic Name Dose Route Start Last Admin Trade Name Freq PRN Reason Stop Dose Admin Acetaminophen 650 mg 12/06/19 13:18 Tylenol Tab* PO Q6H PRN MILD PAIN or TEMP > 100.4 Apixaban 2.5 mg 12/06/19 21:00 12/07/19 09:00 Eliquis* PO 2.5 mg BID TIMA Administration Divalproex Sodium 500 mg 12/06/19 14:00 12/07/19 13:31 Depakote Sprinkle Cap* PO 500 mg TID TIMA Administration Docusate Sodium 100 mg 12/06/19 21:00 12/07/19 09:02 Colace Cap* PO 100 mg BID TIMA Administration Lactobacillus Rhamnosus 1 tab 12/07/19 09:00 12/07/19 09:02 Lactobacillus Acidophilus* PO 1 tab DAILY TIMA Administration Magnesium Hydroxide 30 ml 12/06/19 13:18 12/06/19 14:56 Milk Of Magnesia Liq* PO 30 ml Q6H PRN Administration CONSTIPATION Oxycodone HCl 5 mg 12/06/19 13:24 12/07/19 05:15 Roxycodone Tab* PO 5 mg Q4H PRN Administration PAIN - MODERATE Oxycodone HCl 10 mg 12/06/19 13:25 12/07/19 13:33 Roxycodone Tab* PO 10 mg Q4H PRN Administration PAIN - SEVERE Pantoprazole Sodium 40 mg 12/07/19 09:00 12/07/19 09:03 Protonix Tab* PO 40 mg DAILY TIMA Administration Potassium Chloride 10 meq 12/07/19 09:00 12/07/19 09:03 Klor Con Er Tab* PO 10 meq DAILY TIMA Administration Senna 2 tab 12/06/19 13:18 Senokot 8.6 Mg Tab* PO BEDTIME PRN CONSTIPATION Vital Signs: Vital Signs Temp Pulse Resp BP Pulse Ox 99.4 F 78 16 110/72 98 12/07/19 05:00 12/07/19 05:00 12/07/19 15:35 12/07/19 05:30 12/07/19 05:00 Lab Results: Laboratory Results - last 24 hr 12/07/19 12/07/19 03:54 03:54 WBC 7.8 RBC 2.65 L Hgb 8.9 L Hct 26 L MCV 97 MCH 34 H MCHC 35 RDW 14 Plt Count 275 MPV 8.0 Neut % (Auto) 56.4 Lymph % (Auto) 26.0 [place] % (Auto) 16.3 Eos % (Auto) 0.7 Baso % (Auto) 0.6 Absolute Neuts (auto) 4.4 Absolute Lymphs (auto) 2.0 Absolute Monos (auto) 1.3 H Absolute Eos (auto) 0.1 Absolute Basos (auto) 0.1 Absolute Nucleated RBC 0.0 Nucleated RBC % 0.0 Sodium 135 Potassium 3.6 Chloride 99 L Carbon Dioxide 31 Anion Gap 5 BUN 7 Creatinine 0.49 L Est GFR ( Amer) 153.4 Est GFR (Non-Af Amer) 126.7 BUN/Creatinine Ratio 14.3 Glucose 90 Calcium 8.6 Total Bilirubin 0.40 AST 13 ALT 6 L Alkaline Phosphatase 22 L Total Protein 5.3 L Albumin 2.8 L Globulin 2.5 Albumin/Globulin Ratio 1.1 Exam: HEENT: EOMI LUNGS: Clear bilaterally HEART: Reg rhythm ABDOMEN: Soft, +BS EXTREMITIES: Left arm flex-contracted at elbow and wrist, NEUROLOGIC: 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 Sensation appears intact Assessment/Plan: 1. Left hip fracture, S/P Girdlestone: WBAT. PT/OT 2. Seizures: Continue Depakote 3. History of ICH with left hemiparesis: PT/OT to work with disability 4. DVT Prophylaxis: Eliquis 5. GERD: Protonix 6. Advance Directives: Full code. Jake Waters is surrogate decision maker 12/07/19 18:25 12/07/19 18:27
[2019-12-07] MEDS: Magnesium Hydroxide LIQ* 30 ML UDC PO PRN (20:20)
[2019-12-08] MEDS: Apixaban* 2.5 MG TAB PO SCH ×2 (08:35→19:55)
[2019-12-08] MEDS: Divalproex Sprinkle CAP* 125 MG PO SCH ×3 (08:35→19:56)
[2019-12-08] MEDS: Docusate CAP* 100 MG PO SCH ×2 (08:37→19:26)
[2019-12-08] MEDS: Lactobacillus Acidophilus* 1 TAB PO SCH (08:37)
[2019-12-08] MEDS: Potassium Chlor TAB* 10 MEQ TAB.ER PO SCH (08:38)
[2019-12-08] MEDS: Pantoprazole TAB * 40 MG TAB PO SCH (08:38)
[2019-12-08] MEDS: oxyCODONE TAB* 5 MG TAB PO PRN ×3 (08:40→19:56)
[2019-12-08] MEDS: Magnesium Hydroxide LIQ* 30 ML UDC PO PRN (08:46)
--- NOTE | 2019-12-08 12:40 | PMRUTEAM ---
PMRU: Team Meeting Current Status: Physical Therapy: Current Status Current Rolling Status Partial/Moderate Current Supine <-> Sit Status Dependent Current Sit <-> Stand Status Dependent Current Bed <-> Chair Status Dependent Transfer/Bed Mobility MOOSE Recommended Devices Current Picking Up Object Dependent Status Current Ambulation Assistance Not attempted Status Current Wheelchair Propulsion Supervision/Touching Ability Status Wheelchair Distance (ft) 100' Current Stair Climbing Status Not attempted Current Curb Assistance Status Not attempted Objective Comments Pt utilizes LLE AFO/heel wedge. Occupational Therapy: Current Status Current Upper Body Dressing Setup or Clean-up Assist Status Current Lower Body Dressing Dependent Status Current Footwear Status Dependent Current Bathing Status Dependent Current Grooming Status Partial/Moderate Current Toileting Status Dependent Current Toilet Transfer Status Dependent Current Eating Status Setup or Clean-up Assist Nursing: Current Status Skin Deviations [Left Hip] Incision Skin Deviation Description [ incision glued Left Hip] Drain Type [Left Hip] None Bladder Current Status continent, bed dawn and commode Bowel Current Status last bm 12/03/19, MOM and colace given Nutrition Current Status good appetite Medication Current Status Oxycodone 10mg given for pain Rec Therapy: Current Status Summary of Assessment and Recreation Therapy assessment complete and pt is Clinical Impression aware of services. Pt has expressed interest in continued leisure visits and participating in crafts. Pt has declined any independent leisure needs at this time. Treatment Goals Pt will participate in leisure activities while on the unit, as tolerated Treatment Plan Provide Recreation Therapy services and encourage involvement Goals: Physical Therapy: Goals Goals to Be Accomplished in ( 14-18 Days) Goal: Rolling Assistance Independent Goal Supine <-> Sit Status Independent Goal Sit <-> Stand Status Independent Goal Bed <-> Chair Status Independent Transfer/Bed Mobility Manoj Walker Recommended Devices Goal: Picking Up Object Independent Goal: Car Transfer Status Supervision/Touching Goal: Ambulation Assistance Independent Ambulation Assistive Devices Manoj Walker Ambulation Distance (ft) 50' Goal: Wheelchair Propulsion Independent Ability Wheelchair Distance (ft) 150' Goal: Stairs Assistance Supervision/Touching Stairs Recommended Devices One Rail Number of Stairs 4 Goal: Curb Assistance Supervision/Touching Goal: Home Exercise Program Independent Assistance Occupational Therapy: Goals Goals to be Completed in (Days 14-21 days ) Goal Upper Body Dressing Independent Routine Goal Lower Body Dressing Independent Routine Goal Footwear Status Independent Goal Bathing Routine (OT) Supervision/Touching Goal Grooming Routine Independent Goal Toilet Hygiene and Independent Clothing Management Routine Goal Toilet Transfer Routine Independent Goal Functional Transfers for Independent ADL Goal Feeding Routine Independent Goal Light Housekeeping Tasks Partial/Moderate Nursing: Goals Bladder Goal independant Bowel Goal indepenant Nutrition Goal 100% with all meals Medication Goal independant Care Plan: Care Plan ADL's - Improve/Maintain Start: 12/06/19 11:46 Freq: DAILY@0700,1900 Status: Active Target: 12/07/19 Protocol: Activity Type Activity Date Activity User E-Sign Co-Sign Detail Recorded Client Recorded Date Recorded By Document 12/07/19 15:01 [id number] [id number] 12/07/19 15:02 [id number] 12/07/19 15:01 PMRU Outcome: ADL's/ADL Transfers Orders/Interventions Occupational Therapy Evaluation & Treatment Device Yes Address Deficits Secondary To: L femur fx and s/p girdlestone procedure Patient to receive OT 5x/wk for 60-120 Therex min/day Self Care Management Group Therapy Neuromuscular ReEducation UE/LE ADL's with Assist Yes: independent ADL Transfers with Assist Yes: independent Toileting: Transfers,Clothing Management Yes: ,Hygeine w/Assist independent Light Kitchen/Laundry w/Assist Yes: modA Other Outcome/Goals Pt is a 64 y/o female who presented to [facility] with L hip pain s/p L femur fx and s/ p girdlestone procedure with a PMH of CVA presenting with WBAT LLE, limited endurance, decreased strenght, balance deficits and increased pain affecting bathing, toileting, dressing and functional mobility/ transfers. Pt completes her morning ADL routine as reported above. She requires modA x2 to transfer from supine to EOB. Pt crying out in pain during transfer. STS with Natalie x2 from EOB using MOOSE. Pt will benefit from skilled OT services in a rehabiliation setting to maximize independence with ADL and IADL routine. Progression Toward Outcome/Goals Goal Initiation DVT Prophylaxis- Improve/Maintain Start: 12/06/19 11:46 Freq: DAILY@0700,1900 Status: Active Target: 12/23/19 Protocol: Activity Type Activity Date Activity User E-Sign Co-Sign Detail Recorded Client Recorded Date Recorded By Document 12/08/19 10:25 [id number] 12/08/19 10:29 [id number] 12/08/19 10:25 PMRU Outcome: DVT Prophylaxis Current DVT Outcome/Goals Remains Free of DVT Complies with DVT Prophylaxis /Treatment Demonstrates Knowledge of DVT Prevention/ Treatment TEDS Stockings on Every AM, Off at HS Progression Toward Outcome/Goals Progressing Discharge Planning - Improve/Maintain Start: 12/06/19 11:46 Freq: DAILY@0700,1900 Status: Active Target: 12/23/19 Protocol: Activity Type Activity Date Activity User E-Sign Co-Sign Detail Recorded Client Recorded Date Recorded By Document 12/08/19 10:25 [id number] 12/08/19 10:29 [id number] 12/08/19 10:25 PMRU Outcome: Discharge Planning Update Patient Family Yes Current Discharge Planning Outcome/Goals Homecare Referral - See Comment Progression Toward Outcome/Goals Progressing Education-Improve/Maintain Start: 12/06/19 11:46 Freq: DAILY@0700,190 Status: Active Target: 12/23/19 Protocol: Activity Type Activity Date Activity User E-Sign Co-Sign Detail Recorded Client Recorded Date Recorded By Document 12/08/19 10:25 [id number] [email or web address] 12/08/19 10:29 [id number] 12/08/19 10:25 PMRU Outcome: Education Current Education Outcome/Goals Demonstrate/ Verbalize Understanding of Written Discharge Instructions Demonstrates Skills Progression Toward Outcome/Goals Progressing /GI-Improve/Maintain Start: 12/06/19 11:46 Freq: DAILY@0700,1900 Status: Active Target: 12/23/19 Protocol: Activity Type Activity Date Activity User E-Sign Co-Sign Detail Recorded Client Recorded Date Recorded By Document 12/08/19 10:25 [id number] 12/08/19 10:29 [id number] 12/08/19 10:25 PMRU Outcome: Genitourinary/ Gastrointestinal Current Gastrointestinal Outcome/Goals Maintain/ Achieve Bowel Regularity in Accordance with Pt's Baseline Remain Free of Emesis Prevent Constipation Progression Toward Outcome/Goals Progressing Current Genitourinary Outcome/Goals Maintain/ Achieve Urinary Continence Maintain/ Achieve Adequate Urinary Output Remain Free of Hospital- Acquired UTI Progression Toward Outcome/Goals Progressing Medication Administration Start: 12/06/19 11:46 Freq: DAILY@0700,1900 Status: Active Target: 12/23/19 Protocol: Activity Type Activity Date Activity User E-Sign Co-Sign Detail Recorded Client Recorded Date Recorded By Document 12/08/19 10:25 [id number] 12/08/19 10:29 12/08/19 10:25 PMRU Outcome: Medication Administration Assess Patient Knowledge/Teach Med Yes Education for all Meds Current Assurance Senior Manager Insurance Outcome/Goals Family/ Caregiver Administer Medications at Home Demonstrates Understanding Progression Towards Outcome/Goals Progressing Is Patient Going Home on Lovenox? No Mobility- Improve/Maintain Start: 12/06/19 11:46 Freq: DAILY@699,1899 Status: Active Target: 12/07/19 Protocol: Activity Type Activity Date Activity User E-Sign Co-Sign Detail Recorded Client Recorded Date Recorded By Document 12/07/19 14:40 [id number] 12/07/19 14:41 [id number] 12/07/19 14:40 PMRU Outcome: Mobility Physical Therapy Evaluation and Yes Treatment Activity OOB with Assistance Yes WBAT Yes NWB No TTWB No Device Yes Assistance Yes Patient to be seen 5x/wk for 60-120 min/ Therex day for: Mobility Training Gait Training W/C Mobility Balance Other Other Therapy Comment Discharge planning, discharge training Current Mobility Outcome/Goals Maintain/ Achieve Baseline Mobility Status Improve Mobility Status Demonstrates Proper Use of Assistive Devices Free from Complications of Immobility Progression Toward Outcome/Goals Goal Initiation Bed Mobility Yes: Independent Transfers Yes: Independent with LRD Gait x ft Yes: 50' Independent with LRD W/C Mobility x ft Yes: 150' Independent Up/Down Stairs Yes: 4 with 1 rail, supervision With HEP Yes: Independent Neurological- Improve/Maintain Start: 12/06/19 11:46 Freq: DAILY@699,1899 Status: Active Target: 12/23/19 Protocol: Activity Type Activity Date Activity User E-Sign Co-Sign Detail Recorded Client Recorded Date Recorded By Document 12/08/19 10:25 [id number] 12/08/19 10:29 12/08/19 10:25 PMRU Outcome: Neurological Weakness/Aphasia Left Side Current Neurological Outcome/Goals Maintain/ Achieve Baseline Neurological Status Prevent Avoidable Neurological Decline Demonstrate Knowledge of Prevention/Tx of Neuro Disorders/ Complication Maintain/ Improve Strength/ROM Progression Toward Outcome/Goals Progressing Pain/Comfort- Improve/Maintain Start: 12/06/19 11:46 Freq: DAILY@699,1899 Status: Active Target: 12/23/19 Protocol: Activity Type Activity Date Activity User E-Sign Co-Sign Detail Recorded Client Recorded Date Recorded By Document 12/08/19 10:25 [id number] 12/08/19 10:29 [id number] 12/08/19 10:25 PMRU Outcome: Pain/Comfort Current Pain/Comfort Outcome/Goals Demonstrates Knowledge and Use of Available Comfort Measures Achieves Acceptable Comfort/Pain Level as Determined by Patient/Condit Maintain Comfort Level Allowing Patient to Fully Participate in Rehab Progression Toward Outcome/Goals Progressing Rec Therapy- Improve/Maintain Start: 12/07/19 16:29 Freq: DAILY@ Status: Active Target: 12/08/19 Protocol: Activity Type Activity Date Activity User E-Sign Co-Sign Detail Recorded Client Recorded Date Recorded By Document 12/07/19 16:29 [id number] 12/07/19 16:29 [id number] 12/07/19 16:29 PMRU Outcome: Recreation Therapy Current Rec Ther Outcome/Goals Complete Rec Therapy Assessment Meet with Patient Regularly for Support Encourage Leisure Involvement Progression Toward Outcome/Goals Goal Initiation Safety- Improve/Maintain Start: 12/06/19 10:37 Freq: DAILY@699,1899 Status: Active Target: 12/23/19 Protocol: Activity Type Activity Date Activity User E-Sign Co-Sign Detail Recorded Client Recorded Date Recorded By Document 12/08/19 10:25 [id number] 12/08/19 10:29 [id number] 12/08/19 10:25 PMRU Outcome: Safety Current Safety Outcome/Goals Remain Free of Injury or Harm Cooperates with Safety Measures for Least Restrictive Environment Prevent Falls/ Injury Progression Toward Outcome/Goals Progressing Skin- Improve/Maintain Start: 12/06/19 11:46 Freq: DAILY@ Status: Active Target: 12/23/19 Protocol: Activity Type Activity Date Activity User E-Sign Co-Sign Detail Recorded Client Recorded Date Recorded By Document 12/08/19 10:25 [id number] 12/08/19 10:29 [id number] 12/08/19 10:25 PMRU Outcome: Skin Skin Risk Level Mild Risk Skin Orders Dressing Change Heels Off Bed Turn/Position q2hr While in Bed Skin Orders Comment left hip Current Skin Outcome/Goals Maintain/ Improve Skin Integrity Free from Pressure Injury Surgical Incisions Healing Progression Toward Outcome/Goals Progressing - Interdisciplinary Staff Present Medical Records Clerk/Social Work Staff Present: Erica Ricketts LMSW Nursing Staff Present: Cammy Silver RN OT Staff Present: Brandi Avila PT Staff Present: Ashlie Benitez Medicine Note: Length of Stay: 17 days Anticipated Discharge Destination: home Tentative Discharge Date: December 25, 2019 Discharged to: home
--- NOTE | 2019-12-08 18:15 | PN ---
Progress Note Date of Service: 12/08/19 Note: VERÓNICA DEGROOT was visited. Therapy notes read and reviewed. She was discussed in interdisciplinary team rounds. She is having a hard time with pain control in order to weight bear. She is otherwise struggling Current Medications: Active Medications Generic Name Dose Route Start Last Admin Trade Name Freq PRN Reason Stop Dose Admin Acetaminophen 650 mg 12/06/19 13:18 Tylenol Tab* PO Q6H PRN MILD PAIN or TEMP > 100.4 Apixaban 2.5 mg 12/06/19 21:00 12/08/19 08:35 Eliquis* PO 2.5 mg BID TIMA Administration Divalproex Sodium 500 mg 12/06/19 14:00 12/08/19 14:40 Depakote Sprinkle Cap* PO 500 mg TID TIMA Administration Docusate Sodium 100 mg 12/06/19 21:00 12/08/19 08:37 Colace Cap* PO 100 mg BID TIMA Administration Lactobacillus Rhamnosus 1 tab 12/07/19 09:00 12/08/19 08:37 Lactobacillus Acidophilus* PO 1 tab DAILY TIMA Administration Magnesium Hydroxide 30 ml 12/06/19 13:18 12/08/19 08:46 Milk Of Magnesia Liq* PO 30 ml Q6H PRN Administration CONSTIPATION Oxycodone HCl 5 mg 12/06/19 13:24 12/07/19 05:15 Roxycodone Tab* PO 5 mg Q4H PRN Administration PAIN - MODERATE Oxycodone HCl 10 mg 12/06/19 13:25 12/08/19 13:12 Roxycodone Tab* PO 10 mg Q4H PRN Administration PAIN - SEVERE Pantoprazole Sodium 40 mg 12/07/19 09:00 12/08/19 08:38 Protonix Tab* PO 40 mg DAILY TIMA Administration Potassium Chloride 10 meq 12/07/19 09:00 12/08/19 08:38 Klor Con Er Tab* PO 10 meq DAILY TIMA Administration Senna 2 tab 12/08/19 21:00 Senokot 8.6 Mg Tab* PO BEDTIME TIMA Vital Signs: Vital Signs Temp Pulse Resp BP Pulse Ox 98.0 F 84 22 97/72 97 12/08/19 16:31 12/08/19 16:31 12/08/19 16:31 12/08/19 16:31 12/08/19 16:31 Exam: HEENT: EOMI LUNGS: Clear bilaterally HEART: Reg rhythm ABDOMEN: Soft, +BS EXTREMITIES: Left arm flex-contracted at elbow and wrist, NEUROLOGIC: 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 Sensation appears intact Assessment/Plan: 1. Left hip fracture, S/P Girdlestone: WBAT. PT/OT 2. Seizures: Continue Depakote 3. History of ICH with left hemiparesis: PT/OT to work with disability 4. DVT Prophylaxis: Eliquis 5. GERD: Protonix 6. Advance Directives: Full code. Jake Waters is surrogate decision maker 12/08/19 18:16
[2019-12-08] MEDS: Senna TAB 8.6 mg* TAB PO SCH (19:26)
[2019-12-09] MEDS: Docusate CAP* 100 MG PO SCH ×2 (08:36→20:01)
[2019-12-09] MEDS: Apixaban* 2.5 MG TAB PO SCH ×2 (08:36→20:01)
[2019-12-09] MEDS: Pantoprazole TAB * 40 MG TAB PO SCH (08:37)
[2019-12-09] MEDS: Potassium Chlor TAB* 10 MEQ TAB.ER PO SCH (08:37)
[2019-12-09] MEDS: Lactobacillus Acidophilus* 1 TAB PO SCH (08:37)
[2019-12-09] MEDS: Divalproex Sprinkle CAP* 125 MG PO SCH ×3 (08:38→19:59)
[2019-12-09] MEDS: oxyCODONE TAB* 5 MG TAB PO PRN ×3 (08:41→18:53)
--- NOTE | 2019-12-09 18:09 | PN ---
Progress Note Date of Service: 12/09/19 Note: VERÓNICA DEGROOT was visited. Therapy notes read and reviewed. She has no current complaints. She worked hard in therapy. She got an oxycodone prior to therapy and this seemed to help. Current Medications: Active Medications Generic Name Dose Route Start Last Admin Trade Name Freq PRN Reason Stop Dose Admin Acetaminophen 650 mg 12/06/19 13:18 Tylenol Tab* PO Q6H PRN MILD PAIN or TEMP > 100.4 Apixaban 2.5 mg 12/06/19 21:00 12/09/19 08:36 Eliquis* PO 2.5 mg BID TIMA Administration Divalproex Sodium 500 mg 12/06/19 14:00 12/09/19 14:19 Depakote Sprinkle Cap* PO 500 mg TID TIMA Administration Docusate Sodium 100 mg 12/06/19 21:00 12/09/19 08:36 Colace Cap* PO 100 mg BID TIMA Administration Lactobacillus Rhamnosus 1 tab 12/07/19 09:00 12/09/19 08:37 Lactobacillus Acidophilus* PO 1 tab DAILY TIMA Administration Magnesium Hydroxide 30 ml 12/06/19 13:18 12/08/19 08:46 Milk Of Magnesia Liq* PO 30 ml Q6H PRN Administration CONSTIPATION Oxycodone HCl 5 mg 12/06/19 13:24 12/07/19 05:15 Roxycodone Tab* PO 5 mg Q4H PRN Administration PAIN - MODERATE Oxycodone HCl 10 mg 12/06/19 13:25 12/09/19 14:20 Roxycodone Tab* PO 10 mg Q4H PRN Administration PAIN - SEVERE Pantoprazole Sodium 40 mg 12/07/19 09:00 12/09/19 08:37 Protonix Tab* PO 40 mg DAILY TIMA Administration Potassium Chloride 10 meq 12/07/19 09:00 12/09/19 08:37 Klor Con Er Tab* PO 10 meq DAILY TIMA Administration Senna 2 tab 12/08/19 21:00 12/08/19 19:26 Senokot 8.6 Mg Tab* PO Not Given BEDTIME TIMA Vital Signs: Vital Signs Temp Pulse Resp BP Pulse Ox 98.1 F 74 17 110/62 95 12/09/19 05:53 12/09/19 05:53 12/09/19 16:52 12/09/19 05:53 12/09/19 05:53 Exam: HEENT: EOMI LUNGS: Clear bilaterally HEART: Reg rhythm ABDOMEN: Soft, +BS EXTREMITIES: Left arm flex-contracted at elbow and wrist, NEUROLOGIC: 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 Sensation appears intact Assessment/Plan: 1. Left hip fracture, S/P [place]: WBAT. PT/OT 2. Seizures: Continue Depakote 3. History of ICH with left hemiparesis: PT/OT to work with disability 4. DVT Prophylaxis: Eliquis 5. GERD: Protonix 6. Advance Directives: Full code. Jake Waters is surrogate decision maker 12/09/19 18:09
[2019-12-09] MEDS: Senna TAB 8.6 mg* TAB PO SCH (20:02)
[2019-12-10] MEDS: oxyCODONE TAB* 5 MG TAB PO PRN ×3 (07:41→17:56)
[2019-12-10] MEDS: Pantoprazole TAB * 40 MG TAB PO SCH (09:50)
[2019-12-10] MEDS: Docusate CAP* 100 MG PO SCH ×2 (09:50→21:22)
[2019-12-10] MEDS: Lactobacillus Acidophilus* 1 TAB PO SCH (09:50)
[2019-12-10] MEDS: Potassium Chlor TAB* 10 MEQ TAB.ER PO SCH (09:50)
[2019-12-10] MEDS: Apixaban* 2.5 MG TAB PO SCH ×2 (09:51→21:22)
[2019-12-10] MEDS: Divalproex Sprinkle CAP* 125 MG PO SCH ×3 (09:51→21:25)
--- NOTE | 2019-12-10 17:48 | PN ---
Progress Note Date of Service: 12/10/19 Note: VERÓNICA DEGROOT was visited. Therapy notes read and reviewed. She has no complaints today and feels okay overall. Pain still bad when she tries to weight bear Current Medications: Active Medications Generic Name Dose Route Start Last Admin Trade Name Freq PRN Reason Stop Dose Admin Acetaminophen 650 mg 12/06/19 13:18 Tylenol Tab* PO Q6H PRN MILD PAIN or TEMP > 100.4 Apixaban 2.5 mg 12/06/19 21:00 12/10/19 09:51 Eliquis* PO 2.5 mg BID TIMA Administration Divalproex Sodium 500 mg 12/06/19 14:00 12/10/19 14:38 Depakote Sprinkle Cap* PO 500 mg TID TIMA Administration Docusate Sodium 100 mg 12/06/19 21:00 12/10/19 09:50 Colace Cap* PO 100 mg BID TIMA Administration Lactobacillus Rhamnosus 1 tab 12/07/19 09:00 12/10/19 09:50 Lactobacillus Acidophilus* PO 1 tab DAILY TIMA Administration Magnesium Hydroxide 30 ml 12/06/19 13:18 12/08/19 08:46 Milk Of Magnesia Liq* PO 30 ml Q6H PRN Administration CONSTIPATION Oxycodone HCl 5 mg 12/06/19 13:24 12/07/19 05:15 Roxycodone Tab* PO 5 mg Q4H PRN Administration PAIN - MODERATE Oxycodone HCl 10 mg 12/06/19 13:25 12/10/19 13:01 Roxycodone Tab* PO 10 mg Q4H PRN Administration PAIN - SEVERE Pantoprazole Sodium 40 mg 12/07/19 09:00 12/10/19 09:50 Protonix Tab* PO 40 mg DAILY TIMA Administration Potassium Chloride 10 meq 12/07/19 09:00 12/10/19 09:50 Klor Con Er Tab* PO 10 meq DAILY TIMA Administration Senna 2 tab 12/08/19 21:00 12/09/19 20:02 Senokot 8.6 Mg Tab* PO Not Given BEDTIME TIMA Vital Signs: Vital Signs Temp Pulse Resp BP Pulse Ox 98.4 F 78 18 117/68 96 12/10/19 15:50 12/10/19 15:50 12/10/19 15:50 12/10/19 15:50 12/10/19 15:50 Exam: HEENT: EOMI LUNGS: Clear bilaterally HEART: Reg rhythm ABDOMEN: Soft, +BS EXTREMITIES: Left arm flex-contracted at elbow and wrist, left hip wound clean and dry NEUROLOGIC: 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 Sensation appears intact Assessment/Plan: 1. Left hip fracture, S/P [place]: WBAT. PT/OT 2. Seizures: Continue Depakote 3. History of ICH with left hemiparesis: PT/OT to work with disability 4. DVT Prophylaxis: Eliquis 5. GERD: Protonix 6. Advance Directives: Full code. Jake Waters is surrogate decision maker 12/10/19 17:49
[2019-12-10] MEDS: Magnesium Hydroxide LIQ* 30 ML UDC PO PRN (17:53)
[2019-12-10] MEDS: Senna TAB 8.6 mg* TAB PO SCH (21:22)
[2019-12-10] MEDS: Acetaminophen TAB* 325 MG PO PRN (21:23)
[2019-12-11] MEDS: oxyCODONE TAB* 5 MG TAB PO PRN ×3 (08:16→21:11)
[2019-12-11] MEDS: Apixaban* 2.5 MG TAB PO SCH ×2 (09:47→21:11)
[2019-12-11] MEDS: Divalproex Sprinkle CAP* 125 MG PO SCH ×3 (09:48→21:12)
[2019-12-11] MEDS: Docusate CAP* 100 MG PO SCH ×2 (09:48→21:11)
[2019-12-11] MEDS: Lactobacillus Acidophilus* 1 TAB PO SCH (09:49)
[2019-12-11] MEDS: Pantoprazole TAB * 40 MG TAB PO SCH (09:49)
[2019-12-11] MEDS: Potassium Chlor TAB* 10 MEQ TAB.ER PO SCH (09:49)
--- NOTE | 2019-12-11 11:36 | PN ---
Progress Note Date of Service: 12/11/19 Note: VERÓNICA DEGROOT was visited. Nursing and therapy notes read and reviewed. No chest pain, shortness of breath or abdominal pain. Pain medication works when she takes it. Current Medications: Active Medications Generic Name Dose Route Start Last Admin Trade Name Freq PRN Reason Stop Dose Admin Acetaminophen 650 mg 12/06/19 13:18 12/10/19 21:23 Tylenol Tab* PO 650 mg Q6H PRN Administration MILD PAIN or TEMP > 100.4 Apixaban 2.5 mg 12/06/19 21:00 12/11/19 09:47 Eliquis* PO 2.5 mg BID TIMA Administration Divalproex Sodium 500 mg 12/06/19 14:00 12/11/19 09:48 Depakote Sprinkle Cap* PO 500 mg TID TIMA Administration Docusate Sodium 100 mg 12/06/19 21:00 12/11/19 09:48 Colace Cap* PO 100 mg BID TIMA Administration Lactobacillus Rhamnosus 1 tab 12/07/19 09:00 12/11/19 09:49 Lactobacillus Acidophilus* PO 1 tab DAILY TIMA Administration Magnesium Hydroxide 30 ml 12/06/19 13:18 12/10/19 17:53 Milk Of Magnesia Liq* PO 30 ml Q6H PRN Administration CONSTIPATION Oxycodone HCl 5 mg 12/06/19 13:24 12/07/19 05:15 Roxycodone Tab* PO 5 mg Q4H PRN Administration PAIN - MODERATE Oxycodone HCl 10 mg 12/06/19 13:25 12/11/19 08:16 Roxycodone Tab* PO 10 mg Q4H PRN Administration PAIN - SEVERE Pantoprazole Sodium 40 mg 12/07/19 09:00 12/11/19 09:49 Protonix Tab* PO 40 mg DAILY TIMA Administration Potassium Chloride 10 meq 12/07/19 09:00 12/11/19 09:49 Klor Con Er Tab* PO 10 meq DAILY TIMA Administration Senna 2 tab 12/08/19 21:00 12/10/19 21:22 Senokot 8.6 Mg Tab* PO 2 tab BEDTIME TIMA Administration Vital Signs: Vital Signs Temp Pulse Resp BP Pulse Ox 97.8 F 73 14 98/76 95 12/11/19 04:38 12/11/19 04:38 12/11/19 08:16 12/11/19 04:38 12/11/19 04:38 Exam: GEN: no acute distress. alert and appropriate. LUNGS: Clear to auscultation bilaterally HEART: Regular rate and rhythm ABDOMEN: Soft, +bowel sounds, non-tender, non-distended. EXTREMITIES: No edema. Left hip incision c/d/i glued. 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 LLE motor 2/ 5 DF and rest limited by pain at hip and knee. RUE/RLE motor 5/5. Sensation intact x4 Assessment/Plan: 1. Left hip fracture, S/P [place]: WBAT. f/u Dr. Jenkins. PT/OT 2. Seizures: Continue Depakote 3. History of ICH with left hemiparesis: PT/OT to work with disability 4. DVT Prophylaxis: Eliquis 5. GERD: Protonix 6. Advance Directives: Full code. Jake Waters is surrogate decision maker 12/11/19 11:36
[2019-12-11] MEDS: Senna TAB 8.6 mg* TAB PO SCH (21:11)
--- NOTE | 2019-12-12 08:33 | PN ---
Progress Note Date of Service: 12/12/19 Note: VERÓNICA DEGROOT was visited. Nursing and therapy notes read and reviewed. No new issues. No chest pain, shortness of breath or abdominal pain. Current Medications: Active Medications Generic Name Dose Route Start Last Admin Trade Name Freq PRN Reason Stop Dose Admin Acetaminophen 650 mg 12/06/19 13:18 12/10/19 21:23 Tylenol Tab* PO 650 mg Q6H PRN Administration MILD PAIN or TEMP > 100.4 Apixaban 2.5 mg 12/06/19 21:00 12/11/19 21:11 Eliquis* PO 2.5 mg BID TIMA Administration Divalproex Sodium 500 mg 12/06/19 14:00 12/11/19 21:12 Depakote Sprinkle Cap* PO 500 mg TID TIMA Administration Docusate Sodium 100 mg 12/06/19 21:00 12/11/19 21:11 Colace Cap* PO 100 mg BID TIMA Administration Lactobacillus Rhamnosus 1 tab 12/07/19 09:00 12/11/19 09:49 Lactobacillus Acidophilus* PO 1 tab DAILY TIMA Administration Magnesium Hydroxide 30 ml 12/06/19 13:18 12/10/19 17:53 Milk Of Magnesia Liq* PO 30 ml Q6H PRN Administration CONSTIPATION Oxycodone HCl 5 mg 12/06/19 13:24 12/07/19 05:15 Roxycodone Tab* PO 5 mg Q4H PRN Administration PAIN - MODERATE Oxycodone HCl 10 mg 12/06/19 13:25 12/11/19 21:11 Roxycodone Tab* PO 10 mg Q4H PRN Administration PAIN - SEVERE Pantoprazole Sodium 40 mg 12/07/19 09:00 12/11/19 09:49 Protonix Tab* PO 40 mg DAILY TIMA Administration Potassium Chloride 10 meq 12/07/19 09:00 12/11/19 09:49 Klor Con Er Tab* PO 10 meq DAILY TIMA Administration Senna 2 tab 12/08/19 21:00 12/11/19 21:11 Senokot 8.6 Mg Tab* PO 2 tab BEDTIME TIMA Administration Vital Signs: Vital Signs Temp Pulse Resp BP Pulse Ox 98.2 F 62 16 98/61 93 12/12/19 05:13 12/12/19 05:13 12/12/19 05:13 12/12/19 05:13 12/12/19 05:13 Exam: GEN: no acute distress. alert and appropriate. LUNGS: Clear to auscultation bilaterally HEART: Regular rate and rhythm ABDOMEN: Soft, +bowel sounds, non-tender, non-distended. EXTREMITIES: No edema. Left hip incision c/d/i glued. 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 LLE motor 2/ 5 DF and rest limited by pain at hip and knee. RUE/RLE motor 5/5. Sensation slightly diminished on left side, which she reports as baseline since stroke. Assessment/Plan: 1. Left hip fracture, S/P [place]: WBAT. f/u Dr. Jenkins. PT/OT 2. Seizures: Continue Depakote 3. History of ICH with left hemiparesis: PT/OT to work with disability 4. DVT Prophylaxis: Eliquis 5. GERD: Protonix 6. Advance Directives: Full code. Jake Waters is surrogate decision maker 12/12/19 08:33
[2019-12-12] MEDS: Apixaban* 2.5 MG TAB PO SCH ×2 (08:52→20:13)
[2019-12-12] MEDS: Potassium Chlor TAB* 10 MEQ TAB.ER PO SCH (08:52)
[2019-12-12] MEDS: Docusate CAP* 100 MG PO SCH ×2 (08:52→20:15)
[2019-12-12] MEDS: Divalproex Sprinkle CAP* 125 MG PO SCH ×3 (08:52→20:17)
[2019-12-12] MEDS: Lactobacillus Acidophilus* 1 TAB PO SCH (08:52)
[2019-12-12] MEDS: Pantoprazole TAB * 40 MG TAB PO SCH (08:53)
[2019-12-12] MEDS: oxyCODONE TAB* 5 MG TAB PO PRN ×2 (08:55→20:13)
[2019-12-12] MEDS: Senna TAB 8.6 mg* TAB PO SCH (20:15)
[2019-12-13] MEDS: oxyCODONE TAB* 5 MG TAB PO PRN ×2 (08:04→17:52)
[2019-12-13] MEDS: Divalproex Sprinkle CAP* 125 MG PO SCH ×3 (08:06→20:30)
[2019-12-13] MEDS: Potassium Chlor TAB* 10 MEQ TAB.ER PO SCH (08:06)
[2019-12-13] MEDS: Apixaban* 2.5 MG TAB PO SCH ×2 (08:06→20:31)
[2019-12-13] MEDS: Pantoprazole TAB * 40 MG TAB PO SCH (08:06)
[2019-12-13] MEDS: Docusate CAP* 100 MG PO SCH ×2 (08:07→20:30)
[2019-12-13] MEDS: Lactobacillus Acidophilus* 1 TAB PO SCH (08:07)
--- NOTE | 2019-12-13 10:16 | PN ---
Progress Note Date of Service: 12/13/19 Note: VERÓNICA DEGROOT was visited. Nursing notes read and reviewed. No chest pain, shortness of breath or abdominal pain. No new issues overnight. She is moving with less pain. Current Medications: Active Medications Generic Name Dose Route Start Last Admin Trade Name Freq PRN Reason Stop Dose Admin Acetaminophen 650 mg 12/06/19 13:18 12/10/19 21:23 Tylenol Tab* PO 650 mg Q6H PRN Administration MILD PAIN or TEMP > 100.4 Apixaban 2.5 mg 12/06/19 21:00 12/13/19 08:06 Eliquis* PO 2.5 mg BID TIMA Administration Divalproex Sodium 500 mg 12/06/19 14:00 12/13/19 08:06 Depakote Sprinkle Cap* PO 500 mg TID TIMA Administration Docusate Sodium 100 mg 12/06/19 21:00 12/13/19 08:07 Colace Cap* PO 100 mg BID TIMA Administration Lactobacillus Rhamnosus 1 tab 12/07/19 09:00 12/13/19 08:07 Lactobacillus Acidophilus* PO 1 tab DAILY TIMA Administration Magnesium Hydroxide 30 ml 12/06/19 13:18 12/10/19 17:53 Milk Of Magnesia Liq* PO 30 ml Q6H PRN Administration CONSTIPATION Oxycodone HCl 5 mg 12/06/19 13:24 12/12/19 20:13 Roxycodone Tab* PO 5 mg Q4H PRN Administration PAIN - MODERATE Oxycodone HCl 10 mg 12/06/19 13:25 12/13/19 08:04 Roxycodone Tab* PO 10 mg Q4H PRN Administration PAIN - SEVERE Pantoprazole Sodium 40 mg 12/07/19 09:00 12/13/19 08:06 Protonix Tab* PO 40 mg DAILY TIMA Administration Potassium Chloride 10 meq 12/07/19 09:00 12/13/19 08:06 Klor Con Er Tab* PO 10 meq DAILY TIMA Administration Senna 2 tab 12/08/19 21:00 12/12/19 20:15 Senokot 8.6 Mg Tab* PO Not Given BEDTIME TIMA Vital Signs: Vital Signs Temp Pulse Resp BP Pulse Ox 98.3 F 69 18 115/79 96 12/13/19 05:29 12/13/19 05:29 12/13/19 08:04 12/13/19 05:29 12/13/19 05:29 Exam: GEN: no acute distress. alert and appropriate. LUNGS: Clear to auscultation bilaterally HEART: Regular rate and rhythm ABDOMEN: Soft, +bowel sounds, non-tender, non-distended. EXTREMITIES: No edema. Left hip incision c/d/i glued. 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 LLE motor 2/ 5 DF and left knee extension and rest limited by pain at hip. RUE/RLE motor 5/ 5. Sensation slightly diminished on left side, which she reports as baseline since stroke. Assessment/Plan: 1. Left hip fracture, S/P [place]: WBAT. f/u Dr. Jenkins. PT/OT 2. Seizures: Continue Depakote 3. History of ICH with left hemiparesis: PT/OT to work with disability 4. DVT Prophylaxis: Eliquis 5. GERD: Protonix 6. Advance Directives: Full code. Jake Waters is surrogate decision maker 12/13/19 10:16
[2019-12-13] MEDS: Senna TAB 8.6 mg* TAB PO SCH (20:30)
[2019-12-13] MEDS: Acetaminophen TAB* 325 MG PO PRN (20:31)
[2019-12-14 05:18] LABS: Hematocrit 29 % (35-47); Hemoglobin 9.9 g/dL (12.0-16.0); Mean Corpuscular HGB Conc 34 g/dL (31-36); Mean Corpuscular Hemoglobin 33 pg (27-31); Mean Corpuscular Volume 97 fL (80-97); Mean Platelet Volume 6.9 fL (7.4-10.4); Platelet Count 557 10^3/uL (150-450); Red Blood Count 2.98 10^6 /uL (3.70-4.87); Red Cell Distribution Width 14 % (10-15); White Blood Count 7.8 10^3/uL (3.5-10.8)
[2019-12-14 05:35] LABS: ABS Basophils 0.1 10^3/ul (0-0.2); ABS Eosinophils 0.2 10^3/ul (0-0.6); ABS Monocytes 1.7 10^3/ul (0-0.8); ABS Neutrophils 3.8 10^3/ul (1.5-7.7); Eosinophil % 2.3 %; Lymphocyte % 25.7 %; Nucleated Red Blood Cells % 0.1
[2019-12-14 05:40] LABS: Albumin/Globulin Ratio 1.2 (1-3); BUN/Creatinine Ratio 11.1 (8-20); Calcium 8.9 mg/dL (8.6-10.3); EGFR African American 114.8 (>60); EGFR Non-African American 94.8 (>60); Globulin 2.6 g/dL (2-4); Potassium 4.3 mmol/L (3.5-5.0); Total Bilirubin 0.4 mg/dL (0.2-1.0); Total Protein 5.6 g/dL (6.4-8.9)
[2019-12-14] MEDS: Apixaban* 2.5 MG TAB PO SCH ×2 (08:38→21:21)
[2019-12-14] MEDS: Docusate CAP* 100 MG PO SCH ×2 (08:38→21:18)
[2019-12-14] MEDS: Pantoprazole TAB * 40 MG TAB PO SCH (08:38)
[2019-12-14] MEDS: Lactobacillus Acidophilus* 1 TAB PO SCH (08:38)
[2019-12-14] MEDS: Potassium Chlor TAB* 10 MEQ TAB.ER PO SCH (08:38)
[2019-12-14] MEDS: oxyCODONE TAB* 5 MG TAB PO PRN ×2 (08:39→15:19)
[2019-12-14] MEDS: Divalproex Sprinkle CAP* 125 MG PO SCH ×3 (08:39→21:21)
--- NOTE | 2019-12-14 16:24 | PN ---
Progress Note Date of Service: 12/14/19 Note: VERÓNICA DEGROOT was visited. Therapy notes read and reviewed. She is doing okay. She is trying to avoid pain medicine but knows she has a lot of pain without them. She finds Ensure is too sweet and does not like Current Medications: Active Medications Generic Name Dose Route Start Last Admin Trade Name Freq PRN Reason Stop Dose Admin Acetaminophen 650 mg 12/06/19 13:18 12/13/19 20:31 Tylenol Tab* PO 650 mg Q6H PRN Administration MILD PAIN or TEMP > 100.4 Apixaban 2.5 mg 12/06/19 21:00 12/14/19 08:38 Eliquis* PO 2.5 mg BID TIMA Administration Divalproex Sodium 500 mg 12/06/19 14:00 12/14/19 14:40 Depakote Sprinkle Cap* PO 500 mg TID TIMA Administration Docusate Sodium 100 mg 12/06/19 21:00 12/14/19 08:38 Colace Cap* PO 100 mg BID TIMA Administration Lactobacillus Rhamnosus 1 tab 12/07/19 09:00 12/14/19 08:38 Lactobacillus Acidophilus* PO 1 tab DAILY TIMA Administration Magnesium Hydroxide 30 ml 12/06/19 13:18 12/10/19 17:53 Milk Of Magnesia Liq* PO 30 ml Q6H PRN Administration CONSTIPATION Oxycodone HCl 5 mg 12/06/19 13:24 12/12/19 20:13 Roxycodone Tab* PO 5 mg Q4H PRN Administration PAIN - MODERATE Oxycodone HCl 10 mg 12/06/19 13:25 12/14/19 15:19 Roxycodone Tab* PO 10 mg Q4H PRN Administration PAIN - SEVERE Pantoprazole Sodium 40 mg 12/07/19 09:00 12/14/19 08:38 Protonix Tab* PO 40 mg DAILY TIMA Administration Potassium Chloride 10 meq 12/07/19 09:00 12/14/19 08:38 Klor Con Er Tab* PO 10 meq DAILY TIMA Administration Senna 2 tab 12/08/19 21:00 12/13/19 20:30 Senokot 8.6 Mg Tab* PO Not Given BEDTIME TIMA Vital Signs: Vital Signs Temp Pulse Resp BP Pulse Ox 98.1 F 66 20 100/71 95 12/14/19 05:02 12/14/19 05:02 12/14/19 15:30 12/14/19 05:02 12/14/19 08:00 Lab Results: Laboratory Results - last 24 hr 12/14/19 12/14/19 04:57 04:57 WBC 7.8 RBC 2.98 L Hgb 9.9 L Hct 29 L MCV 97 MCH 33 H MCHC 34 RDW 14 Plt Count 557 H D MPV 6.9 L Neut % (Auto) 49.3 Lymph % (Auto) 25.7 [place] % (Auto) 21.3 Eos % (Auto) 2.3 Baso % (Auto) 1.4 Absolute Neuts (auto) 3.8 Absolute Lymphs (auto) 2.0 Absolute Monos (auto) 1.7 H Absolute Eos (auto) 0.2 Absolute Basos (auto) 0.1 Absolute Nucleated RBC 0.0 Nucleated RBC % 0.1 Sodium 135 Potassium 4.3 Chloride 99 L Carbon Dioxide 30 Anion Gap 6 BUN 7 Creatinine 0.63 Est GFR ( Amer) 114.8 Est GFR (Non-Af Amer) 94.8 BUN/Creatinine Ratio 11.1 Glucose 92 Calcium 8.9 Total Bilirubin 0.40 AST 10 L ALT 5 L Alkaline Phosphatase 32 L Total Protein 5.6 L Albumin 3.0 L Globulin 2.6 Albumin/Globulin Ratio 1.2 Exam: GENERAL: no acute distress. alert and appropriate. LUNGS: Clear to auscultation bilaterally HEART: Regular rate and rhythm ABDOMEN: Soft, +bowel sounds, non-tender, non-distended. EXTREMITIES: No edema. Left hip incision c/d/i glued. 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 LLE motor 2/ 5 DF and left knee extension limited by pain at hip. RUE/RLE motor 5/5. Sensation slightly diminished on left side. Assessment/Plan: 1. Left hip fracture, S/P [place]: WBAT. f/u Dr. Jenkins. PT/OT 2. Seizures: Continue Depakote 3. History of ICH with left hemiparesis: PT/OT to work with disability 4. DVT Prophylaxis: Eliquis 5. GERD: Protonix 6. Advance Directives: Full code. Jake Waters is surrogate decision maker 12/14/19 16:25
[2019-12-14] MEDS: Senna TAB 8.6 mg* TAB PO SCH (21:18)
[2019-12-15] MEDS: Lactobacillus Acidophilus* 1 TAB PO SCH (08:10)
[2019-12-15] MEDS: Apixaban* 2.5 MG TAB PO SCH ×2 (08:10→21:17)
[2019-12-15] MEDS: Potassium Chlor TAB* 10 MEQ TAB.ER PO SCH (08:10)
[2019-12-15] MEDS: Pantoprazole TAB * 40 MG TAB PO SCH (08:10)
[2019-12-15] MEDS: Docusate CAP* 100 MG PO SCH ×2 (08:10→21:17)
[2019-12-15] MEDS: oxyCODONE TAB* 5 MG TAB PO PRN ×3 (08:11→21:19)
[2019-12-15] MEDS: Divalproex Sprinkle CAP* 125 MG PO SCH ×3 (08:11→21:18)
--- NOTE | 2019-12-15 12:53 | PMRUTEAM ---
PMRU: Team Meeting Current Status: Physical Therapy: Current Status Current Rolling Status Supervision/Touching Current Supine <-> Sit Status Supervision/Touching Current Sit <-> Stand Status Partial/Moderate Current Bed <-> Chair Status Partial/Moderate Transfer/Bed Mobility Railings Recommended Devices Current Picking Up Object Dependent Status Current Ambulation Assistance Not attempted Status Manual Wheelchair Control/ Right UE/Right LE Technique Current Wheelchair Propulsion Supervision/Touching Ability Status Wheelchair Distance (ft) 150' Current Stair Climbing Status Not attempted Current Curb Assistance Status Not attempted Objective Comments Pt recently transitioned to new insurance ( Medicare) which was not previously used for recent DME orders. Pt agreeable to possibly ordering new , smaller manual WC which may fit within her home and improve functional independence/mobility. Pt's hip width 15", she will be able to fit in 16" width w/c which will be 23" wide in total. Occupational Therapy: Current Status Current Upper Body Dressing Setup or Clean-up Assist Status Current Lower Body Dressing Partial/Moderate Status Current Footwear Status Substantial/Maximal Current Bathing Status Partial/Moderate Current Grooming Status Setup or Clean-up Assist Current Toileting Status Substantial/Maximal Current Toilet Transfer Status Dependent Toilet Transfer Progress 2 assist with nsg staff. SPT using manoj walker with therapy Current Eating Status Independent Nursing: Current Status Skin Deviations [Left Incision Incision ] Skin Deviations [Left Hip] Incision Skin Deviation Description [ CHITRA Left Incision] Skin Deviation Description [ intact and healing Left Hip] Drain Type [Left Incision] None Drain Type [Left Hip] None Bladder Current Status continent Bowel Current Status bm this am Nutrition Current Status good appetite Medication Current Status Oxycodone 10mg given for pain Rec Therapy: Current Status Summary of Assessment and Recreation Therapy assessment complete and pt is Clinical Impression aware of services. Pt has expressed interest in continued leisure visits and participating in crafts. Pt was offered coloring materials which she has been using in her free time. Treatment Goals Pt will participate in leisure activities while on the unit, as tolerated Treatment Plan Provide Recreation Therapy services and encourage involvement Social Work: Current Status Discharge Plan return home with home care svs and family support Potential for Family Training pt's son is involved and supportive Anticipated Discharge Home Destination Discharge With home care svs and family support Nutrition: Current Status Monitoring Pt is a 64 yo F admitted for L hip fx. Maintained on regular diet w/variable intake at meals, consuming 30-95% per documentation. Labs/meds rev' d. Full nutrition assessment to follow 12/09. Goals: Physical Therapy: Goals Goals to Be Accomplished in ( 14-18 Days) Goal: Rolling Assistance Independent Goal Supine <-> Sit Status Independent Goal Sit <-> Stand Status Independent Goal Bed <-> Chair Status Independent Transfer/Bed Mobility Railings Recommended Devices Goal: Picking Up Object Independent Goal: Car Transfer Status Supervision/Touching Goal: Ambulation Assistance Independent Ambulation Assistive Devices Amnoj Walker Ambulation Distance (ft) 50' Goal: Wheelchair Propulsion Independent Ability Wheelchair Distance (ft) 150' Goal: Stairs Assistance Supervision/Touching Stairs Recommended Devices One Rail Number of Stairs 4 Goal: Curb Assistance Supervision/Touching Goal: Home Exercise Program Independent Assistance Occupational Therapy: Goals Goals to be Completed in (Days 14-21 days ) Goal Upper Body Dressing Independent Routine Goal Lower Body Dressing Independent Routine Goal Footwear Status Independent Goal Bathing Routine (OT) Supervision/Touching Goal Grooming Routine Independent Goal Toilet Hygiene and Independent Clothing Management Routine Goal Toilet Transfer Routine Independent Goal Functional Transfers for Independent ADL Goal Feeding Routine Independent Goal Light Housekeeping Tasks Partial/Moderate Nutrition: Goals Intervention Goals 1. Pt will tolerate PO without evidence difficulty chewing 2. Intake adequate to maintain UBW 3. Pt will maintain regular bowel pattern without constipation or diarrhea Social Work: Goals Discharge Plan return home with home care svs and family support Potential for Family Training pt's son is involved and supportive Anticipated Discharge Home Destination Discharge With home care svs and family support Nursing: Goals Bladder Goal independent Bowel Goal independent Nutrition Goal 100% with all meals Medication Goal supervision Care Plan: Care Plan ADL's - Improve/Maintain Start: 12/06/19 11:46 Freq: DAILY@0700,1900 Status: Active Target: 12/07/19 Protocol: Activity Type Activity Date Activity User E-Sign Co-Sign Detail Recorded Client Recorded Date Recorded By Document 12/14/19 15:29 [id number] 12/14/19 15:29 [id number] 12/14/19 15:29 PMRU Outcome: ADL's/ADL Transfers Orders/Interventions Occupational Therapy Evaluation & Treatment Device Yes Address Deficits Secondary To: L femur fx and s/p girdlestone procedure Patient to receive OT 5x/wk for 60-120 Therex min/day Self Care Management Group Therapy Neuromuscular ReEducation UE/LE ADL's with Assist Yes: independent ADL Transfers with Assist Yes: independent Toileting: Transfers,Clothing Management Yes: ,Hygeine w/Assist independent Light Kitchen/Laundry w/Assist Yes: modA Other Outcome/Goals Pt tolerates OT tx session well. She demonstrates increased balance and decreased LOB during tx session. Progression Toward Outcome/Goals Goal Initiation DVT Prophylaxis- Improve/Maintain Start: 12/06/19 11:46 Freq: DAILY@0700,1900 Status: Complete Target: 12/23/19 Protocol: Activity Type Activity Date Activity User E-Sign Co-Sign Detail Recorded Client Recorded Date Recorded By Document 12/13/19 07:00 [id number] 12/13/19 08:01 [id number] 12/13/19 07:00 PMRU Outcome: DVT Prophylaxis Current DVT Outcome/Goals Remains Free of DVT Complies with DVT Prophylaxis /Treatment Demonstrates Knowledge of DVT Prevention/ Treatment TEDS Stockings on Every AM, Off at HS Progression Toward Outcome/Goals Goals Met Outcome/Goals Met Remains Free of DVT Discharge Planning - Improve/Maintain Start: 12/06/19 11:46 Freq: DAILY@0700,1900 Status: Active Target: 12/23/19 Protocol: Activity Type Activity Date Activity User E-Sign Co-Sign Detail Recorded Client Recorded Date Recorded By Document 12/15/19 08:00 [id number] [id number] 12/15/19 10:01 [id number] 12/15/19 08:00 PMRU Outcome: Discharge Planning Update Patient Family No: family not present this am Current Discharge Planning Outcome/Goals Demonstrates Understanding of Discharge Plan Homecare Referral - See Comment Progression Toward Outcome/Goals Progressing Education-Improve/Maintain Start: 12/06/19 11:46 Freq: DAILY@0700,1900 Status: Active Target: 12/23/19 Protocol: Activity Type Activity Date Activity User E-Sign Co-Sign Detail Recorded Client Recorded Date Recorded By Document 12/15/19 08:00 [id number] [email or web address] 12/15/19 10:01 [id number] 12/15/19 08:00 PMRU Outcome: Education Current Education Outcome/Goals Demonstrate/ Verbalize Understanding of Written Discharge Instructions Demonstrates Skills Encourage Questions Progression Toward Outcome/Goals Progressing /GI-Improve/Maintain Start: 12/06/19 11:46 Freq: DAILY@ Status: Complete Target: 12/23/19 Protocol: Activity Type Activity Date Activity User E-Sign Co-Sign Detail Recorded Client Recorded Date Recorded By Document 12/13/19 07:00 [id number] 12/13/19 08:01 [id number] 12/13/19 07:00 PMRU Outcome: Genitourinary/ Gastrointestinal Current Gastrointestinal Outcome/Goals Maintain/ Achieve Bowel Regularity in Accordance with Pt's Baseline Remain Free of Emesis Prevent Constipation Laxatives as Ordered Progression Toward Outcome/Goals Goals Met Outcome/Goals Met Maintain/ Achieve Bowel Regularity in Accordance with Pt's Baseline Remain Free of Emesis Prevent Constipation Current Genitourinary Outcome/Goals Maintain/ Achieve Urinary Continence Maintain/ Achieve Adequate Urinary Output Progression Toward Outcome/Goals Goals Met Outcome/Goals Met Maintain/ Achieve Urinary Continence Maintain/ Achieve Adequate Urinary Output Medication Administration Start: 12/06/19 11:46 Freq: DAILY@ Status: Active Target: 12/23/19 Protocol: Activity Type Activity Date Activity User E-Sign Co-Sign Detail Recorded Client Recorded Date Recorded By Document 12/15/19 08:00 [id number] [email or web address] 12/15/19 10:01 [id number] 12/15/19 08:00 PMRU Outcome: Medication Administration Assess Patient Knowledge/Teach Med Yes Education for all Meds Current Accounting Software Specialist Outcome/Goals Family/ Caregiver Administer Medications at Home Demonstrates Understanding Progression Towards Outcome/Goals Progressing Is Patient Going Home on Lovenox? No Mobility- Improve/Maintain Start: 12/06/19 11:46 Freq: DAILY@ Status: Active Target: 12/07/19 Protocol: Activity Type Activity Date Activity User E-Sign Co-Sign Detail Recorded Client Recorded Date Recorded By Document 12/11/19 16:47 [id number] [id number] 12/11/19 16:47 [id number] 12/11/19 16:47 PMRU Outcome: Mobility Physical Therapy Evaluation and Yes Treatment Activity OOB with Assistance Yes WBAT Yes NWB No TTWB No Device Yes Assistance Yes Patient to be seen 5x/wk for 60-120 min/ Therex day for: Mobility Training Gait Training W/C Mobility Balance Other Other Therapy Comment Discharge planning, discharge training Current Mobility Outcome/Goals Maintain/ Achieve Baseline Mobility Status Improve Mobility Status Demonstrates Proper Use of Assistive Devices Free from Complications of Immobility Progression Toward Outcome/Goals Progressing Bed Mobility Yes: Independent Transfers Yes: Independent with LRD Gait x ft Yes: 50' Independent with LRD W/C Mobility x ft Yes: 150' Independent Up/Down Stairs Yes: 4 with 1 rail, supervision With HEP Yes: Independent Neurological- Improve/Maintain Start: 12/06/19 11:46 Freq: DAILY@0700,1900 Status: Active Target: 12/23/19 Protocol: Activity Type Activity Date Activity User E-Sign Co-Sign Detail Recorded Client Recorded Date Recorded By Document 12/15/19 08:00 [id number] 12/15/19 10:01 [id number] 12/15/19 08:00 PMRU Outcome: Neurological Weakness/Aphasia Weakness Left Side Weakness/Aphasia Comment h/o CVA, l hip fx Current Neurological Outcome/Goals Maintain/ Achieve Baseline Neurological Status Prevent Avoidable Neurological Decline Demonstrate Knowledge of Prevention/Tx of Neuro Disorders/ Complication Maintain/ Improve Strength/ROM Progression Toward Outcome/Goals Progressing Pain/Comfort- Improve/Maintain Start: 12/06/19 11:46 Freq: DAILY@699,1899 Status: Active Target: 12/23/19 Protocol: Activity Type Activity Date Activity User E-Sign Co-Sign Detail Recorded Client Recorded Date Recorded By Document 12/15/19 08:00 [id number] [email or web address] 12/15/19 10:01 [id number] 12/15/19 08:00 PMRU Outcome: Pain/Comfort Current Pain/Comfort Outcome/Goals Demonstrates Knowledge and Use of Available Comfort Measures Achieves Acceptable Comfort/Pain Level as Determined by Patient/Condit Maintain Comfort Level Allowing Patient to Fully Participate in Rehab Progression Toward Outcome/Goals Progressing Rec Therapy- Improve/Maintain Start: 12/07/19 16:29 Freq: DAILY@699,190 Status: Active Target: 12/25/19 Protocol: Activity Type Activity Date Activity User E-Sign Co-Sign Detail Recorded Client Recorded Date Recorded By Document 12/14/19 15:49 [id number] [email or web address] 12/14/19 15:51 [id number] 12/14/19 15:49 PMRU Outcome: Recreation Therapy Current Rec Ther Outcome/Goals Complete Rec Therapy Assessment Meet with Patient Regularly for Support Encourage Leisure Involvement Progression Toward Outcome/Goals Progressing Lack of Progression Comment Met [facility] pt for a 1:1 visit, pt declined formal activities. Pt talked about her therapy sessions and shared stories about her life. Pt Outcome/Goals Met Complete Rec Therapy Assessment Safety- Improve/Maintain Start: 12/06/19 10:37 Freq: DAILY@0700,1900 Status: Active Target: 12/23/19 Protocol: Activity Type Activity Date Activity User E-Sign Co-Sign Detail Recorded Client Recorded Date Recorded By Document 12/15/19 08:00 [id number] 12/15/19 10:01 [id number] 12/15/19 08:00 PMRU Outcome: Safety Current Safety Outcome/Goals Remain Free of Injury or Harm Cooperates with Safety Measures for Least Restrictive Environment Prevent Falls/ Injury Progression Toward Outcome/Goals Progressing Skin- Improve/Maintain Start: 12/06/19 11:46 Freq: DAILY@0700,1900 Status: Complete Target: 12/23/19 Protocol: Activity Type Activity Date Activity User E-Sign Co-Sign Detail Recorded Client Recorded Date Recorded By Document 12/13/19 07:00 [id number] [email or web address] 12/13/19 08:02 [id number] 12/13/19 07:00 PMRU Outcome: Skin Skin Risk Level Mild Risk Skin Orders Heels Off Bed Turn/Position q2hr While in Bed Current Skin Outcome/Goals Maintain/ Improve Skin Integrity Free from Pressure Injury Surgical Incisions Healing Progression Toward Outcome/Goals Goals Met Outcome/Goals Met Surgical Incisions Healing - Interdisciplinary Staff Present Machine Design Engineer/Social Work Staff Present: Erica Ricketts LMSW Nursing Staff Present: June Silver, RN OT Staff Present: Brandi Avila PT Staff Present: Ashlie Benitez WEIGHT CHECKER Staff Present: Cheko Otero Medicine Note: Length of Stay: 10 days Anticipated Discharge Destination: Home Tentative Discharge Date: December 25, 2019 Discharged to: Home
--- NOTE | 2019-12-15 16:49 | PN ---
Progress Note Date of Service: 12/15/19 Note: VERÓNICA DEGROOT was visited. Therapy notes read and reviewed. She was discussed in interdisciplinary team rounds. She has a significant leg length discrepancy. Will ask housing installer to see. She has been struggling to walk. Current Medications: Active Medications Generic Name Dose Route Start Last Admin Trade Name Freq PRN Reason Stop Dose Admin Acetaminophen 650 mg 12/06/19 13:18 12/13/19 20:31 Tylenol Tab* PO 650 mg Q6H PRN Administration MILD PAIN or TEMP > 100.4 Apixaban 2.5 mg 12/06/19 21:00 12/15/19 08:10 Eliquis* PO 2.5 mg BID TIMA Administration Divalproex Sodium 500 mg 12/06/19 14:00 12/15/19 13:46 Depakote Sprinkle Cap* PO 500 mg TID TIMA Administration Docusate Sodium 100 mg 12/06/19 21:00 12/15/19 08:10 Colace Cap* PO 100 mg BID TIMA Administration Lactobacillus Rhamnosus 1 tab 12/07/19 09:00 12/15/19 08:10 Lactobacillus Acidophilus* PO 1 tab DAILY TIMA Administration Magnesium Hydroxide 30 ml 12/06/19 13:18 12/10/19 17:53 Milk Of Magnesia Liq* PO 30 ml Q6H PRN Administration CONSTIPATION Oxycodone HCl 5 mg 12/06/19 13:24 12/12/19 20:13 Roxycodone Tab* PO 5 mg Q4H PRN Administration PAIN - MODERATE Oxycodone HCl 10 mg 12/06/19 13:25 12/15/19 13:46 Roxycodone Tab* PO 10 mg Q4H PRN Administration PAIN - SEVERE Pantoprazole Sodium 40 mg 12/07/19 09:00 12/15/19 08:10 Protonix Tab* PO 40 mg DAILY TIMA Administration Potassium Chloride 10 meq 12/07/19 09:00 12/15/19 08:10 Klor Con Er Tab* PO 10 meq DAILY TIMA Administration Senna 2 tab 12/08/19 21:00 12/14/19 21:18 Senokot 8.6 Mg Tab* PO 2 tab BEDTIME TIMA Administration Vital Signs: Vital Signs Temp Pulse Resp BP Pulse Ox 99.1 F 80 20 109/68 98 12/15/19 15:34 12/15/19 15:34 12/15/19 15:34 12/15/19 15:34 12/15/19 15:34 Exam: GENERAL: no acute distress. alert and appropriate. LUNGS: Clear to auscultation bilaterally HEART: Regular rate and rhythm ABDOMEN: Soft, +bowel sounds, non-tender, non-distended. EXTREMITIES: No edema. Left hip incision c/d/i glued. 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 LLE motor 2/ 5 DF and left knee extension limited by pain at hip. RUE/RLE motor 5/5. Sensation slightly diminished on left side. Assessment/Plan: 1. Left hip fracture, S/P Girdlestone: WBAT. f/u Dr. Jenkins. PT/OT 2. Seizures: Continue Depakote 3. History of ICH with left hemiparesis: PT/OT to work with disability 4. DVT Prophylaxis: Eliquis 5. GERD: Protonix 6. Advance Directives: Full code. Jake Waters is surrogate decision maker 12/15/19 16:49
[2019-12-15] MEDS: Senna TAB 8.6 mg* TAB PO SCH (21:17)
[2019-12-16] MEDS: Apixaban* 2.5 MG TAB PO SCH ×2 (07:58→21:00)
[2019-12-16] MEDS: Docusate CAP* 100 MG PO SCH ×2 (07:58→21:00)
[2019-12-16] MEDS: Potassium Chlor TAB* 10 MEQ TAB.ER PO SCH (07:59)
[2019-12-16] MEDS: Pantoprazole TAB * 40 MG TAB PO SCH (07:59)
[2019-12-16] MEDS: Lactobacillus Acidophilus* 1 TAB PO SCH (07:59)
[2019-12-16] MEDS: Divalproex Sprinkle CAP* 125 MG PO SCH ×3 (07:59→21:03)
[2019-12-16] MEDS: oxyCODONE TAB* 5 MG TAB PO PRN ×2 (08:00→14:09)
--- NOTE | 2019-12-16 19:23 | PN ---
Progress Note Date of Service: 12/16/19 Note: VERÓNICA DEGROOT was visited. Therapy notes read and reviewed. I observed her ambulating with physical therapy today. It is very hard for her and she is in a lot of pain Current Medications: Active Medications Generic Name Dose Route Start Last Admin Trade Name Freq PRN Reason Stop Dose Admin Acetaminophen 650 mg 12/06/19 13:18 12/13/19 20:31 Tylenol Tab* PO 650 mg Q6H PRN Administration MILD PAIN or TEMP > 100.4 Apixaban 2.5 mg 12/06/19 21:00 12/16/19 07:58 Eliquis* PO 2.5 mg BID TIMA Administration Divalproex Sodium 500 mg 12/06/19 14:00 12/16/19 12:52 Depakote Sprinkle Cap* PO 500 mg TID TIMA Administration Docusate Sodium 100 mg 12/06/19 21:00 12/16/19 07:58 Colace Cap* PO 100 mg BID TIMA Administration Lactobacillus Rhamnosus 1 tab 12/07/19 09:00 12/16/19 07:59 Lactobacillus Acidophilus* PO 1 tab DAILY TIMA Administration Magnesium Hydroxide 30 ml 12/06/19 13:18 12/10/19 17:53 Milk Of Magnesia Liq* PO 30 ml Q6H PRN Administration CONSTIPATION Oxycodone HCl 5 mg 12/06/19 13:24 12/15/19 21:19 Roxycodone Tab* PO 5 mg Q4H PRN Administration PAIN - MODERATE Oxycodone HCl 10 mg 12/06/19 13:25 12/16/19 14:09 Roxycodone Tab* PO 10 mg Q4H PRN Administration PAIN - SEVERE Pantoprazole Sodium 40 mg 12/07/19 09:00 12/16/19 07:59 Protonix Tab* PO 40 mg DAILY TIMA Administration Potassium Chloride 10 meq 12/07/19 09:00 12/16/19 07:59 Klor Con Er Tab* PO 10 meq DAILY TIMA Administration Senna 2 tab 12/08/19 21:00 12/15/19 21:17 Senokot 8.6 Mg Tab* PO 2 tab BEDTIME TIMA Administration Vital Signs: Vital Signs Temp Pulse Resp BP Pulse Ox 97.8 F 80 18 99/61 96 12/16/19 15:12 12/16/19 15:12 12/16/19 17:43 12/16/19 15:12 12/16/19 17:44 Exam: GENERAL: no acute distress. alert and appropriate. LUNGS: Clear to auscultation bilaterally HEART: Regular rate and rhythm ABDOMEN: Soft, +bowel sounds, non-tender, non-distended. EXTREMITIES: No edema. Left hip incision c/d/i glued. 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 LLE motor 2/ 5 DF and left knee extension limited by pain at hip. RUE/RLE motor 5/5. Sensation slightly diminished on left side. Assessment/Plan: 1. Left hip fracture, S/P Girdlestone: WBAT. f/u Dr. Jenkins. PT/OT 2. Seizures: Continue Depakote 3. History of ICH with left hemiparesis: PT/OT to work with disability 4. DVT Prophylaxis: Eliquis 5. GERD: Protonix 6. Advance Directives: Full code. Jake Waters is surrogate decision maker 12/16/19 19:24
[2019-12-16] MEDS: Senna TAB 8.6 mg* TAB PO SCH (21:00)
[2019-12-17] MEDS: Divalproex Sprinkle CAP* 125 MG PO SCH ×3 (08:13→20:13)
[2019-12-17] MEDS: Potassium Chlor TAB* 10 MEQ TAB.ER PO SCH (08:13)
[2019-12-17] MEDS: Lactobacillus Acidophilus* 1 TAB PO SCH (08:13)
[2019-12-17] MEDS: oxyCODONE TAB* 5 MG TAB PO PRN ×2 (08:13→12:59)
[2019-12-17] MEDS: Apixaban* 2.5 MG TAB PO SCH ×2 (08:13→20:13)
[2019-12-17] MEDS: Pantoprazole TAB * 40 MG TAB PO SCH (08:13)
[2019-12-17] MEDS: Docusate CAP* 100 MG PO SCH ×2 (08:16→20:13)
--- NOTE | 2019-12-17 17:03 | PN ---
Progress Note Date of Service: 12/17/19 Note: VERÓNICA DEGROOT was visited. Therapy notes read and reviewed. She is having a hard time with her walking, even with the sidebar on the webster. Pain while attempting to walk a big problem Current Medications: Active Medications Generic Name Dose Route Start Last Admin Trade Name Freq PRN Reason Stop Dose Admin Acetaminophen 650 mg 12/06/19 13:18 12/13/19 20:31 Tylenol Tab* PO 650 mg Q6H PRN Administration MILD PAIN or TEMP > 100.4 Apixaban 2.5 mg 12/06/19 21:00 12/17/19 08:13 Eliquis* PO 2.5 mg BID TIMA Administration Divalproex Sodium 500 mg 12/06/19 14:00 12/17/19 12:59 Depakote Sprinkle Cap* PO 500 mg TID TIMA Administration Docusate Sodium 100 mg 12/06/19 21:00 12/17/19 08:16 Colace Cap* PO Not Given BID TIMA Lactobacillus Rhamnosus 1 tab 12/07/19 09:00 12/17/19 08:13 Lactobacillus Acidophilus* PO 1 tab DAILY TIMA Administration Magnesium Hydroxide 30 ml 12/06/19 13:18 12/10/19 17:53 Milk Of Magnesia Liq* PO 30 ml Q6H PRN Administration CONSTIPATION Oxycodone HCl 5 mg 12/06/19 13:24 12/15/19 21:19 Roxycodone Tab* PO 5 mg Q4H PRN Administration PAIN - MODERATE Oxycodone HCl 10 mg 12/06/19 13:25 12/17/19 12:59 Roxycodone Tab* PO 10 mg Q4H PRN Administration PAIN - SEVERE Pantoprazole Sodium 40 mg 12/07/19 09:00 12/17/19 08:13 Protonix Tab* PO 40 mg DAILY TIMA Administration Potassium Chloride 10 meq 12/07/19 09:00 12/17/19 08:13 Klor Con Er Tab* PO 10 meq DAILY TIMA Administration Senna 2 tab 12/08/19 21:00 12/16/19 21:00 Senokot 8.6 Mg Tab* PO 2 tab BEDTIME TIMA Administration Vital Signs: Vital Signs Temp Pulse Resp BP Pulse Ox 98.6 F 78 18 104/71 78 12/17/19 15:39 12/17/19 15:39 12/17/19 16:46 12/17/19 15:39 12/17/19 15:39 Exam: GENERAL: no acute distress. alert and appropriate. LUNGS: Clear to auscultation bilaterally HEART: Regular rate and rhythm ABDOMEN: Soft, +bowel sounds, non-tender, non-distended. EXTREMITIES: No edema. Left hip incision c/d/i glued. 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 LLE motor 2/ 5 DF and left knee extension limited by pain at hip. RUE/RLE motor 5/5. Sensation slightly diminished on left side. Assessment/Plan: 1. Left hip fracture, S/P G[place]: WBAT. f/u Dr. Jenkins. PT/OT 2. Seizures: Continue Depakote 3. History of ICH with left hemiparesis: PT/OT to work with disability 4. DVT Prophylaxis: Eliquis 5. GERD: Protonix 6. Advance Directives: Full code. Jake Waters is surrogate decision maker 12/17/19 17:03
[2019-12-17] MEDS: Senna TAB 8.6 mg* TAB PO SCH (20:13)
[2019-12-18] MEDS: oxyCODONE TAB* 5 MG TAB PO PRN ×3 (02:57→11:55)
[2019-12-18] MEDS: Lactobacillus Acidophilus* 1 TAB PO SCH (08:27)
[2019-12-18] MEDS: Pantoprazole TAB * 40 MG TAB PO SCH (08:27)
[2019-12-18] MEDS: Apixaban* 2.5 MG TAB PO SCH ×2 (08:27→20:48)
[2019-12-18] MEDS: Divalproex Sprinkle CAP* 125 MG PO SCH ×3 (08:28→20:48)
[2019-12-18] MEDS: Docusate CAP* 100 MG PO SCH ×2 (08:29→20:48)
[2019-12-18] MEDS: Potassium Chlor TAB* 10 MEQ TAB.ER PO SCH (08:29)
[2019-12-18] MEDS: Acetaminophen TAB* 325 MG PO PRN ×2 (11:55→20:48)
--- NOTE | 2019-12-18 16:37 | PN ---
Progress Note Date of Service: 12/18/19 Note: VERÓNICA DEGROOT was visited. Therapy notes read and reviewed. She feels like she is doing okay overall. She has no complaints otherwise. Socket Puller orthotics came and will try to build up her shoe. Current Medications: Active Medications Generic Name Dose Route Start Last Admin Trade Name Freq PRN Reason Stop Dose Admin Acetaminophen 650 mg 12/06/19 13:18 12/18/19 11:55 Tylenol Tab* PO 650 mg Q6H PRN Administration MILD PAIN or TEMP > 100.4 Apixaban 2.5 mg 12/06/19 21:00 12/18/19 08:27 Eliquis* PO 2.5 mg BID TIMA Administration Divalproex Sodium 500 mg 12/06/19 14:00 12/18/19 14:13 Depakote Sprinkle Cap* PO 500 mg TID TIMA Administration Docusate Sodium 100 mg 12/06/19 21:00 12/18/19 08:29 Colace Cap* PO 100 mg BID TIMA Administration Lactobacillus Rhamnosus 1 tab 12/07/19 09:00 12/18/19 08:27 Lactobacillus Acidophilus* PO 1 tab DAILY TIMA Administration Magnesium Hydroxide 30 ml 12/06/19 13:18 12/10/19 17:53 Milk Of Magnesia Liq* PO 30 ml Q6H PRN Administration CONSTIPATION Oxycodone HCl 5 mg 12/06/19 13:24 12/15/19 21:19 Roxycodone Tab* PO 5 mg Q4H PRN Administration PAIN - MODERATE Oxycodone HCl 10 mg 12/06/19 13:25 12/18/19 11:55 Roxycodone Tab* PO 10 mg Q4H PRN Administration PAIN - SEVERE Pantoprazole Sodium 40 mg 12/07/19 09:00 12/18/19 08:27 Protonix Tab* PO 40 mg DAILY TIMA Administration Potassium Chloride 10 meq 12/07/19 09:00 12/18/19 08:29 Klor Con Er Tab* PO 10 meq DAILY TIMA Administration Senna 2 tab 12/08/19 21:00 12/17/19 20:13 Senokot 8.6 Mg Tab* PO 2 tab BEDTIME TIMA Administration Vital Signs: Vital Signs Temp Pulse Resp BP Pulse Ox 99.1 F 71 16 91/60 92 12/18/19 16:07 12/18/19 16:07 12/18/19 16:07 12/18/19 16:07 12/18/19 16:07 Exam: GENERAL: no acute distress. alert and appropriate. LUNGS: Clear to auscultation bilaterally HEART: Regular rate and rhythm ABDOMEN: Soft, +bowel sounds, non-tender, non-distended. EXTREMITIES: No edema. Left hip incision c/d/i glued. 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 LLE motor 2/ 5 DF and left knee extension limited by pain at hip. RUE/RLE motor 5/5. Sensation slightly diminished on left side. Assessment/Plan: 1. Left hip fracture, S/P [place]: WBAT. f/u Dr. Jenkins. PT/OT 2. Seizures: Continue Depakote 3. History of ICH with left hemiparesis: PT/OT to work with disability 4. DVT Prophylaxis: Eliquis 5. GERD: Protonix 6. Advance Directives: Full code. Jake Waters is surrogate decision maker 12/18/19 16:37
[2019-12-18] MEDS: Senna TAB 8.6 mg* TAB PO SCH (20:48)
[2019-12-19] MEDS: Acetaminophen TAB* 325 MG PO PRN (09:28)
[2019-12-19] MEDS: Pantoprazole TAB * 40 MG TAB PO SCH (09:29)
[2019-12-19] MEDS: Potassium Chlor TAB* 10 MEQ TAB.ER PO SCH (09:29)
[2019-12-19] MEDS: Lactobacillus Acidophilus* 1 TAB PO SCH (09:30)
[2019-12-19] MEDS: Divalproex Sprinkle CAP* 125 MG PO SCH ×3 (09:30→21:31)
[2019-12-19] MEDS: Docusate CAP* 100 MG PO SCH ×2 (09:30→21:34)
[2019-12-19] MEDS: Apixaban* 2.5 MG TAB PO SCH ×2 (09:30→21:30)
[2019-12-19] MEDS: oxyCODONE TAB* 5 MG TAB PO PRN (12:56)
--- NOTE | 2019-12-19 18:48 | PN ---
Progress Note Date of Service: 12/19/19 Note: VERÓNICA DEGROOT was visited. Nursing notes read and reviewed. She has no complaints but is a little bored today. Current Medications: Active Medications Generic Name Dose Route Start Last Admin Trade Name Freq PRN Reason Stop Dose Admin Acetaminophen 650 mg 12/06/19 13:18 12/19/19 09:28 Tylenol Tab* PO 650 mg Q6H PRN Administration MILD PAIN or TEMP > 100.4 Apixaban 2.5 mg 12/06/19 21:00 12/19/19 09:30 Eliquis* PO 2.5 mg BID TIMA Administration Divalproex Sodium 500 mg 12/06/19 14:00 12/19/19 14:33 Depakote Sprinkle Cap* PO 500 mg TID TIMA Administration Docusate Sodium 100 mg 12/06/19 21:00 12/19/19 09:30 Colace Cap* PO 100 mg BID TIMA Administration Lactobacillus Rhamnosus 1 tab 12/07/19 09:00 12/19/19 09:30 Lactobacillus Acidophilus* PO 1 tab DAILY TIMA Administration Magnesium Hydroxide 30 ml 12/06/19 13:18 12/10/19 17:53 Milk Of Magnesia Liq* PO 30 ml Q6H PRN Administration CONSTIPATION Oxycodone HCl 5 mg 12/06/19 13:24 12/15/19 21:19 Roxycodone Tab* PO 5 mg Q4H PRN Administration PAIN - MODERATE Oxycodone HCl 10 mg 12/06/19 13:25 12/19/19 12:56 Roxycodone Tab* PO 10 mg Q4H PRN Administration PAIN - SEVERE Pantoprazole Sodium 40 mg 12/07/19 09:00 12/19/19 09:29 Protonix Tab* PO 40 mg DAILY TIMA Administration Potassium Chloride 10 meq 12/07/19 09:00 12/19/19 09:29 Klor Con Er Tab* PO 10 meq DAILY TIMA Administration Senna 2 tab 12/08/19 21:00 12/18/19 20:48 Senokot 8.6 Mg Tab* PO 2 tab BEDTIME TIMA Administration Vital Signs: Vital Signs Temp Pulse Resp BP Pulse Ox 98 F 71 14 121/76 95 12/19/19 05:25 12/18/19 16:07 12/19/19 15:00 12/19/19 05:25 12/19/19 08:00 Exam: GENERAL: no acute distress. alert and appropriate. LUNGS: Clear to auscultation bilaterally HEART: Regular rate and rhythm ABDOMEN: Soft, +bowel sounds, non-tender, non-distended. EXTREMITIES: No edema. Left hip incision c/d/i glued. 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 LLE motor 2/ 5 DF and left knee extension limited by pain at hip. RUE/RLE motor 5/5. Sensation slightly diminished on left side. Assessment/Plan: 1. Left hip fracture, S/P [place]: WBAT. f/u Dr. Jenkins. PT/OT 2. Seizures: Continue Depakote 3. History of ICH with left hemiparesis: PT/OT to work with disability 4. DVT Prophylaxis: Eliquis 5. GERD: Protonix 6. Advance Directives: Full code. Jake Waters is surrogate decision maker 12/19/19 19:11
[2019-12-19] MEDS: Senna TAB 8.6 mg* TAB PO SCH (21:34)
[2019-12-20] MEDS: oxyCODONE TAB* 5 MG TAB PO PRN (08:55)
[2019-12-20] MEDS: Apixaban* 2.5 MG TAB PO SCH ×2 (08:55→21:09)
[2019-12-20] MEDS: Lactobacillus Acidophilus* 1 TAB PO SCH (08:55)
[2019-12-20] MEDS: Divalproex Sprinkle CAP* 125 MG PO SCH ×3 (08:55→21:09)
[2019-12-20] MEDS: Pantoprazole TAB * 40 MG TAB PO SCH (08:55)
[2019-12-20] MEDS: Docusate CAP* 100 MG PO SCH ×2 (08:55→21:10)
[2019-12-20] MEDS: Potassium Chlor TAB* 10 MEQ TAB.ER PO SCH (08:55)
[2019-12-20] MEDS: Acetaminophen TAB* 325 MG PO PRN ×2 (16:29→23:03)
--- NOTE | 2019-12-20 17:42 | PN ---
Progress Note Date of Service: 12/20/19 Note: VERÓNICA DEGROOT was visited. Nursing notes read and reviewed. No complaints at present, no shortness of breath or chest pain Current Medications: Active Medications Generic Name Dose Route Start Last Admin Trade Name Freq PRN Reason Stop Dose Admin Acetaminophen 650 mg 12/06/19 13:18 12/20/19 16:29 Tylenol Tab* PO 650 mg Q6H PRN Administration MILD PAIN or TEMP > 100.4 Apixaban 2.5 mg 12/06/19 21:00 12/20/19 08:55 Eliquis* PO 2.5 mg BID TIMA Administration Divalproex Sodium 500 mg 12/06/19 14:00 12/20/19 14:03 Depakote Sprinkle Cap* PO 500 mg TID TIMA Administration Docusate Sodium 100 mg 12/06/19 21:00 12/20/19 08:55 Colace Cap* PO 100 mg BID TIMA Administration Lactobacillus Rhamnosus 1 tab 12/07/19 09:00 12/20/19 08:55 Lactobacillus Acidophilus* PO 1 tab DAILY TIMA Administration Magnesium Hydroxide 30 ml 12/06/19 13:18 12/10/19 17:53 Milk Of Magnesia Liq* PO 30 ml Q6H PRN Administration CONSTIPATION Oxycodone HCl 5 mg 12/06/19 13:24 12/15/19 21:19 Roxycodone Tab* PO 5 mg Q4H PRN Administration PAIN - MODERATE Oxycodone HCl 10 mg 12/06/19 13:25 12/20/19 08:55 Roxycodone Tab* PO 10 mg Q4H PRN Administration PAIN - SEVERE Pantoprazole Sodium 40 mg 12/07/19 09:00 12/20/19 08:55 Protonix Tab* PO 40 mg DAILY TIMA Administration Potassium Chloride 10 meq 12/07/19 09:00 12/20/19 08:55 Klor Con Er Tab* PO 10 meq DAILY TIMA Administration Senna 2 tab 12/08/19 21:00 12/19/19 21:34 Senokot 8.6 Mg Tab* PO Not Given BEDTIME TIMA Vital Signs: Vital Signs Temp Pulse Resp BP Pulse Ox 98.9 F 70 18 90/57 95 12/20/19 16:00 12/20/19 16:00 12/20/19 16:00 12/20/19 16:00 12/20/19 16:00 Exam: GENERAL: no acute distress. alert and appropriate. LUNGS: Clear to auscultation bilaterally HEART: Regular rate and rhythm ABDOMEN: Soft, +bowel sounds, non-tender, non-distended. EXTREMITIES: No edema. Left hip incision c/d/i glued. 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 LLE motor 2/ 5 DF and left knee extension limited by pain at hip. RUE/RLE motor 5/5. Sensation slightly diminished on left side. Assessment/Plan: 1. Left hip fracture, S/P [place]: WBAT. f/u Dr. Jenkins. PT/OT 2. Seizures: Continue Depakote 3. History of ICH with left hemiparesis: PT/OT to work with disability 4. DVT Prophylaxis: Eliquis 5. GERD: Protonix 6. Advance Directives: Full code. Jake Waters is surrogate decision maker 12/20/19 17:42
[2019-12-20] MEDS: Senna TAB 8.6 mg* TAB PO SCH (21:15)
[2019-12-21 06:09] LABS: ABS Basophils 0.1 10^3/ul (0-0.2); ABS Eosinophils 0.1 10^3/ul (0-0.6); ABS Lymphocytes 1.9 10^3/ul (1.0-4.8); ABS Monocytes 1.2 10^3/ul (0-0.8); ABS Neutrophils 3.3 10^3/ul (1.5-7.7); Eosinophil % 1.7 %; Hematocrit 32 % (35-47); Hemoglobin 11.1 g/dL (12.0-16.0); Lymphocyte % 28.5 %; Mean Corpuscular HGB Conc 34 g/dL (31-36); Mean Corpuscular Hemoglobin 33 pg (27-31); Mean Corpuscular Volume 96 fL (80-97); Platelet Count 570 10^3/uL (150-450); Red Blood Count 3.36 10^6 /uL (3.70-4.87); Red Cell Distribution Width 14 % (10-15); White Blood Count 6.6 10^3/uL (3.5-10.8)
[2019-12-21 06:27] LABS: Albumin 3.4 g/dL (3.2-5.2); Albumin/Globulin Ratio 1.3 (1-3); BUN/Creatinine Ratio 15.3 (8-20); Calcium 8.9 mg/dL (8.6-10.3); EGFR African American 123.8 (>60); EGFR Non-African American 102.3 (>60); Globulin 2.7 g/dL (2-4); Total Bilirubin 0.4 mg/dL (0.2-1.0); Total Protein 6.1 g/dL (6.4-8.9)
[2019-12-21] MEDS: Apixaban* 2.5 MG TAB PO SCH ×2 (09:12→21:29)
[2019-12-21] MEDS: Divalproex Sprinkle CAP* 125 MG PO SCH ×3 (09:12→21:29)
[2019-12-21] MEDS: Lactobacillus Acidophilus* 1 TAB PO SCH (09:13)
[2019-12-21] MEDS: Potassium Chlor TAB* 10 MEQ TAB.ER PO SCH (09:13)
[2019-12-21] MEDS: Docusate CAP* 100 MG PO SCH ×2 (09:13→21:29)
[2019-12-21] MEDS: Pantoprazole TAB * 40 MG TAB PO SCH (09:13)
[2019-12-21] MEDS: oxyCODONE TAB* 5 MG TAB PO PRN ×2 (09:13→15:54)
[2019-12-21] MEDS: Acetaminophen TAB* 325 MG PO PRN (14:00)
--- NOTE | 2019-12-21 16:39 | PN ---
Progress Note Date of Service: 12/21/19 Note: VERÓNICA DEGROOT was visited. Therapy notes read and reviewed. She has no complaints today and was happy to resume therapy. Current Medications: Active Medications Generic Name Dose Route Start Last Admin Trade Name Freq PRN Reason Stop Dose Admin Acetaminophen 650 mg 12/06/19 13:18 12/21/19 14:00 Tylenol Tab* PO 650 mg Q6H PRN Administration MILD PAIN or TEMP > 100.4 Apixaban 2.5 mg 12/06/19 21:00 12/21/19 09:12 Eliquis* PO 2.5 mg BID TIMA Administration Divalproex Sodium 500 mg 12/06/19 14:00 12/21/19 15:10 Depakote Sprinkle Cap* PO 500 mg TID TIMA Administration Docusate Sodium 100 mg 12/06/19 21:00 12/21/19 09:13 Colace Cap* PO 100 mg BID TIMA Administration Lactobacillus Rhamnosus 1 tab 12/07/19 09:00 12/21/19 09:13 Lactobacillus Acidophilus* PO 1 tab DAILY TIMA Administration Magnesium Hydroxide 30 ml 12/06/19 13:18 12/10/19 17:53 Milk Of Magnesia Liq* PO 30 ml Q6H PRN Administration CONSTIPATION Oxycodone HCl 5 mg 12/06/19 13:24 12/21/19 15:54 Roxycodone Tab* PO 5 mg Q4H PRN Administration PAIN - MODERATE Oxycodone HCl 10 mg 12/06/19 13:25 12/21/19 09:13 Roxycodone Tab* PO 10 mg Q4H PRN Administration PAIN - SEVERE Pantoprazole Sodium 40 mg 12/07/19 09:00 12/21/19 09:13 Protonix Tab* PO 40 mg DAILY TIMA Administration Potassium Chloride 10 meq 12/07/19 09:00 12/21/19 09:13 Klor Con Er Tab* PO 10 meq DAILY TIMA Administration Senna 2 tab 12/08/19 21:00 12/20/19 21:15 Senokot 8.6 Mg Tab* PO Not Given BEDTIME TIMA Vital Signs: Vital Signs Temp Pulse Resp BP Pulse Ox 98.3 F 69 18 120/76 97 12/21/19 04:33 12/21/19 04:33 12/21/19 15:54 12/21/19 04:33 12/21/19 08:00 Lab Results: Laboratory Results - last 24 hr 12/21/19 12/21/19 05:58 05:58 WBC 6.6 RBC 3.36 L Hgb 11.1 L Hct 32 L MCV 96 MCH 33 H MCHC 34 RDW 14 Plt Count 570 H MPV 7.0 L Neut % (Auto) 50.3 Lymph % (Auto) 28.5 [place] % (Auto) 18.1 Eos % (Auto) 1.7 Baso % (Auto) 1.4 Absolute Neuts (auto) 3.3 Absolute Lymphs (auto) 1.9 Absolute Monos (auto) 1.2 H Absolute Eos (auto) 0.1 Absolute Basos (auto) 0.1 Absolute Nucleated RBC 0.0 Nucleated RBC % 0.0 Sodium 134 L Potassium 4.0 Chloride 99 L Carbon Dioxide 29 Anion Gap 6 BUN 9 Creatinine 0.59 Est GFR ( Amer) 123.8 Est GFR (Non-Af Amer) 102.3 BUN/Creatinine Ratio 15.3 Glucose 94 Calcium 8.9 Total Bilirubin 0.40 AST 9 L ALT 4 L Alkaline Phosphatase 70 Total Protein 6.1 L Albumin 3.4 Globulin 2.7 Albumin/Globulin Ratio 1.3 Exam: GENERAL: no acute distress. alert and appropriate. LUNGS: Clear to auscultation bilaterally HEART: Regular rate and rhythm ABDOMEN: Soft, +bowel sounds, non-tender, non-distended. EXTREMITIES: No edema. Left hip incision c/d/i glued. 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 LLE motor 2/ 5 DF and left knee extension limited by pain at hip. RUE/RLE motor 5/5. Sensation slightly diminished on left side. Assessment/Plan: 1. Left hip fracture, S/P [place]: WBAT. f/u Dr. Jenkins. PT/OT 2. Seizures: Continue Depakote 3. History of ICH with left hemiparesis: PT/OT to work with disability 4. DVT Prophylaxis: Eliquis 5. GERD: Protonix 6. Advance Directives: Full code. Jake Waters is surrogate decision maker 12/21/19 16:39
[2019-12-21] MEDS: Senna TAB 8.6 mg* TAB PO SCH (21:29)
[2019-12-22] MEDS: Divalproex Sprinkle CAP* 125 MG PO SCH ×3 (08:14→20:24)
[2019-12-22] MEDS: Pantoprazole TAB * 40 MG TAB PO SCH (08:15)
[2019-12-22] MEDS: Apixaban* 2.5 MG TAB PO SCH ×2 (08:15→20:24)
[2019-12-22] MEDS: Potassium Chlor TAB* 10 MEQ TAB.ER PO SCH (08:15)
[2019-12-22] MEDS: Lactobacillus Acidophilus* 1 TAB PO SCH (08:15)
[2019-12-22] MEDS: oxyCODONE TAB* 5 MG TAB PO PRN ×3 (08:15→18:11)
[2019-12-22] MEDS: Docusate CAP* 100 MG PO SCH ×2 (08:16→20:26)
--- NOTE | 2019-12-22 12:42 | PMRUTEAM ---
PMRU: Team Meeting Current Status: Physical Therapy: Current Status Current Rolling Status Supervision/Touching Current Supine <-> Sit Status Partial/Moderate Current Sit <-> Stand Status Partial/Moderate Current Bed <-> Chair Status Partial/Moderate Transfer/Bed Mobility Railings Recommended Devices Current Picking Up Object Partial/Moderate Status Current Ambulation Assistance Not attempted Status Current Ambulation Distance 1-2' Manual Wheelchair Control/ Right UE/Right LE Technique Current Wheelchair Propulsion Supervision/Touching Ability Status Wheelchair Distance (ft) 150' Current Stair Climbing Status Not attempted Current Curb Assistance Status Not attempted Objective Comments Pt continues to report "5-6/10" pain, increasing with weight bearing activity and resulting in limited ability to take steps and maintain balance safely. Occupational Therapy: Current Status Current Upper Body Dressing Setup or Clean-up Assist Status Current Lower Body Dressing Partial/Moderate Status Current Footwear Status Substantial/Maximal Current Bathing Status Partial/Moderate Current Grooming Status Setup or Clean-up Assist Current Toileting Status Partial/Moderate Current Toilet Transfer Status Partial/Moderate Toilet Transfer Progress 2 assist with nsg staff. SPT using manoj walker with therapy Current Eating Status Independent Nursing: Current Status Skin Deviations [Left Incision Incision ] Skin Deviations [Left Hip] Incision Skin Deviation Description [ OR ASSISTANT Left Incision] Skin Deviation Description [ healing - CHITRA Left Hip] Drain Type [Left Incision] None Drain Type [Left Hip] None Bladder Current Status continent Bowel Current Status bm this am Nutrition Current Status good appetite Medication Current Status Oxycodone 10mg given for pain Rec Therapy: Current Status Summary of Assessment and Recreation Therapy assessment complete and pt is Clinical Impression aware of services. Pt has expressed interest in continued leisure visits and is participating in crafts. Pt was offered coloring materials which she has been using in her free time. Treatment Goals Pt will participate in leisure activities while on the unit, as tolerated Treatment Plan Provide Recreation Therapy services and encourage involvement Social Work: Current Status Discharge Plan return home with home care svs and family support Potential for Family Training pt's son is involved and supportive Anticipated Discharge Home Destination Discharge With home care svs and family support Nutrition: Current Status Monitoring Pt continues on soft diet w/ noted good intake; consumed 100% B, 90% L today. Additionally, she continues to receive and consume Ensure Enlive at B and L daily, in addition to other nourishments, to optimize kcal/prot intake; will continue to send. Chart reviewed: no noted development in GI s /sx (last BM 12/18 per chart; receiving bowel regimen); recommend continuing bowel regimen as indicated; will monitor GI s/sx for development. Tolerating soft textures w/o evidence of difficulty chewing/swallowing; will continue to send; will monitor continue tolerance and make further recommendations as indicated. No pressure related skin breakdown per chart. Labs reviewed (): Electrolytes WNL; BG 92 (appropriate); will continue to monitor labs. Agree w/ current diet order. Will continue to monitor and provide further nutrition intervention as indicated. Goals: Physical Therapy: Goals Goals to Be Accomplished in ( 14-18 Days) Goal: Rolling Assistance Independent Goal Supine <-> Sit Status Independent Goal Sit <-> Stand Status Independent Goal Bed <-> Chair Status Independent Transfer/Bed Mobility Manoj Walker Recommended Devices Goal: Picking Up Object Independent Goal: Car Transfer Status Supervision/Touching Goal: Ambulation Assistance Independent Ambulation Assistive Devices Railings Ambulation Distance (ft) 50' Goal: Wheelchair Propulsion Independent Ability Wheelchair Distance (ft) 150' Goal: Stairs Assistance Supervision/Touching Stairs Recommended Devices One Rail Number of Stairs 4 Goal: Curb Assistance Supervision/Touching Goal: Home Exercise Program Independent Assistance Occupational Therapy: Goals Goals to be Completed in (Days 14-21 days ) Goal Upper Body Dressing Independent Routine Goal Lower Body Dressing Independent Routine Goal Footwear Status Independent Goal Bathing Routine (OT) Supervision/Touching Goal Grooming Routine Independent Goal Toilet Hygiene and Independent Clothing Management Routine Goal Toilet Transfer Routine Independent Goal Functional Transfers for Independent ADL Goal Feeding Routine Independent Goal Light Housekeeping Tasks Partial/Moderate Nutrition: Goals Intervention Goals 1) Pt will tolerate least restrictive dietary textures w/o difficulty chewing 2) Adequate po intake to support lean body mass and hydration status 3) Maintain fluid/electrolyte balance w/ adequate po intake 4) Maintain bowel regularity w/ adequate po intake and bowel regimen w/o development of diarrhea/ constipation Social Work: Goals Discharge Plan return home with home care svs and family support Potential for Family Training pt's son is involved and supportive Anticipated Discharge Home Destination Discharge With home care svs and family support Nursing: Goals Bladder Goal independent Bowel Goal independent Nutrition Goal 100% with all meals Medication Goal supervision Care Plan: Care Plan ADL's - Improve/Maintain Start: 12/06/19 11:46 Freq: [id number] Status: Active Target: 12/07/19 Protocol: Activity Type Activity Date Activity User E-Sign Co-Sign Detail Recorded Client Recorded Date Recorded By Document 12/22/19 11:02 [id number] 12/22/19 11:02 [id number] 12/22/19 11:02 PMRU Outcome: ADL's/ADL Transfers Orders/Interventions Occupational Therapy Evaluation & Treatment Device Yes Address Deficits Secondary To: L femur fx and s/p girdlestone procedure Patient to receive OT 5x/wk for 60-120 Therex min/day Self Care Management Group Therapy Neuromuscular ReEducation UE/LE ADL's with Assist Yes: independent ADL Transfers with Assist Yes: independent Toileting: Transfers,Clothing Management Yes: ,Hygeine w/Assist independent Light Kitchen/Laundry w/Assist Yes: modA Other Outcome/Goals Pt requries increased assist this date for STS and SPT. LOB x1 during session falling back into chair. Pt does demonstrate LOB x4 but able to self correct or require CGA. Progression Toward Outcome/Goals Progressing DVT Prophylaxis- Improve/Maintain Start: 12/06/19 11:46 Freq: [id number] Status: Complete Target: 12/23/19 Protocol: Activity Type Activity Date Activity User E-Sign Co-Sign Detail Recorded Client Recorded Date Recorded By Document 12/13/19 07:00 [id number] [id number] 12/13/19 08:01 [id number] 12/13/19 07:00 PMRU Outcome: DVT Prophylaxis Current DVT Outcome/Goals Remains Free of DVT Complies with DVT Prophylaxis /Treatment Demonstrates Knowledge of DVT Prevention/ Treatment TEDS Stockings on Every AM, Off at HS Progression Toward Outcome/Goals Goals Met Outcome/Goals Met Remains Free of DVT Discharge Planning - Improve/Maintain Start: 12/06/19 11:46 Freq: [id number] Status: Active Target: 12/25/19 Protocol: Activity Type Activity Date Activity User E-Sign Co-Sign Detail Recorded Client Recorded Date Recorded By Document 12/22/19 10:36 [id number] [id number] 12/22/19 10:37 [id number] 12/22/19 10:36 PMRU Outcome: Discharge Planning Update Patient Family No Current Discharge Planning Outcome/Goals Demonstrates Understanding of Discharge Plan Progression Toward Outcome/Goals Progressing Education-Improve/Maintain Start: 12/06/19 11:46 Freq: [id number] Status: Active Target: 12/25/19 Protocol: Activity Type Activity Date Activity User E-Sign Co-Sign Detail Recorded Client Recorded Date Recorded By Document 12/22/19 10:36 [id number] [email or web address] 12/22/19 10:37 [id number] 12/22/19 10:36 PMRU Outcome: Education Current Education Outcome/Goals Demonstrate/ Verbalize Understanding of Written Discharge Instructions Demonstrates Skills Encourage Questions Progression Toward Outcome/Goals Progressing /GI-Improve/Maintain Start: 12/06/19 11:46 Freq: DAILY@ Status: Complete Target: 12/23/19 Protocol: Activity Type Activity Date Activity User E-Sign Co-Sign Detail Recorded Client Recorded Date Recorded By Document 12/13/19 07:00 [id number] 12/13/19 08:01 [id number] 12/13/19 07:00 PMRU Outcome: Genitourinary/ Gastrointestinal Current Gastrointestinal Outcome/Goals Maintain/ Achieve Bowel Regularity in Accordance with Pt's Baseline Remain Free of Emesis Prevent Constipation Laxatives as Ordered Progression Toward Outcome/Goals Goals Met Outcome/Goals Met Maintain/ Achieve Bowel Regularity in Accordance with Pt's Baseline Remain Free of Emesis Prevent Constipation Current Genitourinary Outcome/Goals Maintain/ Achieve Urinary Continence Maintain/ Achieve Adequate Urinary Output Progression Toward Outcome/Goals Goals Met Outcome/Goals Met Maintain/ Achieve Urinary Continence Maintain/ Achieve Adequate Urinary Output Medication Administration Start: 12/06/19 11:46 Freq: DAILY@ Status: Active Target: 12/25/19 Protocol: Activity Type Activity Date Activity User E-Sign Co-Sign Detail Recorded Client Recorded Date Recorded By Document 12/22/19 10:36 [id number] 12/22/19 10:37 [id number] 12/22/19 10:36 PMRU Outcome: Medication Administration Assess Patient Knowledge/Teach Med Yes Education for all Meds Current Assistant Fitness Manager Outcome/Goals Family/ Caregiver Administer Medications at Home Demonstrates Understanding Progression Towards Outcome/Goals Progressing Is Patient Going Home on Lovenox? No Mobility- Improve/Maintain Start: 12/06/19 11:46 Freq: DAILY@ Status: Active Target: 12/07/19 Protocol: Activity Type Activity Date Activity User E-Sign Co-Sign Detail Recorded Client Recorded Date Recorded By Document 12/21/19 15:53 [id number] 12/21/19 15:53 [id number] 12/21/19 15:53 PMRU Outcome: Mobility Physical Therapy Evaluation and Yes Treatment Activity OOB with Assistance Yes WBAT Yes NWB No TTWB No Device Yes Assistance Yes Patient to be seen 5x/wk for 60-120 min/ Therex day for: Mobility Training Gait Training W/C Mobility Balance Other Other Therapy Comment Discharge planning, discharge training Current Mobility Outcome/Goals Maintain/ Achieve Baseline Mobility Status Improve Mobility Status Demonstrates Proper Use of Assistive Devices Free from Complications of Immobility Progression Toward Outcome/Goals Progressing Outcome/Goals Met Free from Complications of Immobility Bed Mobility Yes: Independent Transfers Yes: Independent with LRD Gait x ft Yes: 50' Independent with LRD W/C Mobility x ft Yes: 150' Independent Up/Down Stairs Yes: 4 with 1 rail, supervision With HEP Yes: Independent Neurological- Improve/Maintain Start: 12/06/19 11:46 Freq: DAILY@ Status: Active Target: 12/25/19 Protocol: Activity Type Activity Date Activity User E-Sign Co-Sign Detail Recorded Client Recorded Date Recorded By Document 12/22/19 10:36 [id number] 12/22/19 10:37 [id number] 12/22/19 10:36 PMRU Outcome: Neurological Weakness/Aphasia Weakness Left Side Current Neurological Outcome/Goals Maintain/ Achieve Baseline Neurological Status Improve Neurological Status Prevent Avoidable Neurological Decline Demonstrate Knowledge of Prevention/Tx of Neuro Disorders/ Complication Maintain/ Improve Strength/ROM Progression Toward Outcome/Goals Progressing Pain/Comfort- Improve/Maintain Start: 12/06/19 11:46 Freq: [id number] Status: Active Target: 12/25/19 Protocol: Activity Type Activity Date Activity User E-Sign Co-Sign Detail Recorded Client Recorded Date Recorded By Document 12/22/19 10:36 [id number] 12/22/19 10:37 [id number] 12/22/19 10:36 PMRU Outcome: Pain/Comfort Current Pain/Comfort Outcome/Goals Demonstrates Knowledge and Use of Available Comfort Measures Achieves Acceptable Comfort/Pain Level as Determined by Patient/Condit Maintain Comfort Level Allowing Patient to Fully Participate in Rehab Progression Toward Outcome/Goals Progressing Rec Therapy- Improve/Maintain Start: 12/07/19 16:29 Freq: DAILY@ Status: Active Target: 12/25/19 Protocol: Activity Type Activity Date Activity User E-Sign Co-Sign Detail Recorded Client Recorded Date Recorded By Document 12/21/19 15:51 [id number] [id number] 12/21/19 15:51 [id number] 12/21/19 15:51 PMRU Outcome: Recreation Therapy Current Rec Ther Outcome/Goals Complete Rec Therapy Assessment Meet with Patient Regularly for Support Encourage Leisure Involvement Progression Toward Outcome/Goals Progressing Outcome/Goals Met Complete Rec Therapy Assessment Safety- Improve/Maintain Start: 12/06/19 10:37 Freq: DAILY@ Status: Active Target: 12/25/19 Protocol: Activity Type Activity Date Activity User E-Sign Co-Sign Detail Recorded Client Recorded Date Recorded By Document 12/22/19 10:36 [id number] 12/22/19 10:37 [id number] 12/22/19 10:36 PMRU Outcome: Safety Current Safety Outcome/Goals Remain Free of Injury or Harm Cooperates with Safety Measures for Least Restrictive Environment Prevent Falls/ Injury Progression Toward Outcome/Goals Progressing Skin- Improve/Maintain Start: 12/06/19 11:46 Freq: DAILY@ Status: Complete Target: 12/23/19 Protocol: Activity Type Activity Date Activity User E-Sign Co-Sign Detail Recorded Client Recorded Date Recorded By Document 12/13/19 07:00 [id number] [id number] 12/13/19 08:02 [id number] 12/13/19 07:00 PMRU Outcome: Skin Skin Risk Level Mild Risk Skin Orders Heels Off Bed Turn/Position q2hr While in Bed Current Skin Outcome/Goals Maintain/ Improve Skin Integrity Free from Pressure Injury Surgical Incisions Healing Progression Toward Outcome/Goals Goals Met Outcome/Goals Met Surgical Incisions Healing - Interdisciplinary Staff Present Software Quality Engineer/Social Work Staff Present: Erica Ricketts LMSW Nursing Staff Present: Cammy Silver, RN OT Staff Present: Brandi Avila PT Staff Present: Amara Chang THREE DIMENSIONAL MAP MODELER Staff Present: Cheko Otero Medicine Note: Length of Stay: 3 days Anticipated Discharge Destination: Home vs SNF Tentative Discharge Date: 12/25/19 Discharged to: SNF?
--- NOTE | 2019-12-22 18:56 | PN ---
Progress Note Date of Service: 12/22/19 Note: VERÓNICA DEGROOT was visited. Therapy notes read and reviewed. She was discussed in interdisciplinary team rounds. She is struggling to achieve functional independence and may need more time. She is trying to arrange more aide time at home Current Medications: Active Medications Generic Name Dose Route Start Last Admin Trade Name Freq PRN Reason Stop Dose Admin Acetaminophen 650 mg 12/06/19 13:18 12/21/19 14:00 Tylenol Tab* PO 650 mg Q6H PRN Administration MILD PAIN or TEMP > 100.4 Apixaban 2.5 mg 12/06/19 21:00 12/22/19 08:15 Eliquis* PO 2.5 mg BID TIMA Administration Divalproex Sodium 500 mg 12/06/19 14:00 12/22/19 14:13 Depakote Sprinkle Cap* PO 500 mg TID TIMA Administration Docusate Sodium 100 mg 12/06/19 21:00 12/22/19 08:16 Colace Cap* PO 100 mg BID TIMA Administration Lactobacillus Rhamnosus 1 tab 12/07/19 09:00 12/22/19 08:15 Lactobacillus Acidophilus* PO 1 tab DAILY TIMA Administration Magnesium Hydroxide 30 ml 12/06/19 13:18 12/10/19 17:53 Milk Of Magnesia Liq* PO 30 ml Q6H PRN Administration CONSTIPATION Oxycodone HCl 5 mg 12/06/19 13:24 12/22/19 18:11 Roxycodone Tab* PO 5 mg Q4H PRN Administration PAIN - MODERATE Oxycodone HCl 10 mg 12/06/19 13:25 12/22/19 14:13 Roxycodone Tab* PO 10 mg Q4H PRN Administration PAIN - SEVERE Pantoprazole Sodium 40 mg 12/07/19 09:00 12/22/19 08:15 Protonix Tab* PO 40 mg DAILY TIMA Administration Potassium Chloride 10 meq 12/07/19 09:00 12/22/19 08:15 Klor Con Er Tab* PO 10 meq DAILY TIMA Administration Senna 2 tab 12/08/19 21:00 12/21/19 21:29 Senokot 8.6 Mg Tab* PO 2 tab BEDTIME TIMA Administration Vital Signs: Vital Signs Temp Pulse Resp BP Pulse Ox 98.3 F 83 18 99/70 96 12/22/19 16:30 12/22/19 16:30 12/22/19 18:25 12/22/19 16:30 12/22/19 16:30 Exam: GENERAL: no acute distress. alert and appropriate. LUNGS: Clear to auscultation bilaterally HEART: Regular rate and rhythm ABDOMEN: Soft, +bowel sounds, non-tender, non-distended. EXTREMITIES: No edema. Left hip incision c/d/i glued. 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 LLE motor 2/ 5 DF and left knee extension limited by pain at hip. RUE/RLE motor 5/5. Sensation slightly diminished on left side. Assessment/Plan: 1. Left hip fracture, S/P Girdlestone: WBAT. f/u Dr. Jenkins. PT/OT 2. Seizures: Continue Depakote 3. History of ICH with left hemiparesis: PT/OT to work with disability 4. DVT Prophylaxis: Eliquis 5. GERD: Protonix 6. Advance Directives: Full code. Jake Waters is surrogate decision maker 12/22/19 18:56
[2019-12-22] MEDS: Senna TAB 8.6 mg* TAB PO SCH (20:26)
[2019-12-23] MEDS: oxyCODONE TAB* 5 MG TAB PO PRN ×3 (03:32→12:25)
[2019-12-23] MEDS: Potassium Chlor TAB* 10 MEQ TAB.ER PO SCH (08:14)
[2019-12-23] MEDS: Lactobacillus Acidophilus* 1 TAB PO SCH (08:14)
[2019-12-23] MEDS: Apixaban* 2.5 MG TAB PO SCH ×2 (08:14→20:06)
[2019-12-23] MEDS: Docusate CAP* 100 MG PO SCH ×2 (08:14→20:06)
[2019-12-23] MEDS: Pantoprazole TAB * 40 MG TAB PO SCH (08:14)
[2019-12-23] MEDS: Divalproex Sprinkle CAP* 125 MG PO SCH ×3 (08:14→20:06)
--- NOTE | 2019-12-23 19:10 | PN ---
Progress Note Date of Service: 12/23/19 Note: VERÓNICA DEGROOT was visited. Therapy notes read and reviewed. Her built up shoe has arrived. She has some muscle tightness in her left lateral thigh Current Medications: Active Medications Generic Name Dose Route Start Last Admin Trade Name Freq PRN Reason Stop Dose Admin Acetaminophen 650 mg 12/06/19 13:18 12/21/19 14:00 Tylenol Tab* PO 650 mg Q6H PRN Administration MILD PAIN or TEMP > 100.4 Apixaban 2.5 mg 12/06/19 21:00 12/23/19 08:14 Eliquis* PO 2.5 mg BID TIMA Administration Divalproex Sodium 500 mg 12/06/19 14:00 12/23/19 14:55 Depakote Sprinkle Cap* PO 500 mg TID TIMA Administration Docusate Sodium 100 mg 12/06/19 21:00 12/23/19 08:14 Colace Cap* PO 100 mg BID TIMA Administration Lactobacillus Rhamnosus 1 tab 12/07/19 09:00 12/23/19 08:14 Lactobacillus Acidophilus* PO 1 tab DAILY TIMA Administration Magnesium Hydroxide 30 ml 12/06/19 13:18 12/10/19 17:53 Milk Of Magnesia Liq* PO 30 ml Q6H PRN Administration CONSTIPATION Oxycodone HCl 5 mg 12/06/19 13:24 12/22/19 18:11 Roxycodone Tab* PO 5 mg Q4H PRN Administration PAIN - MODERATE Oxycodone HCl 10 mg 12/06/19 13:25 12/23/19 12:25 Roxycodone Tab* PO 10 mg Q4H PRN Administration PAIN - SEVERE Pantoprazole Sodium 40 mg 12/07/19 09:00 12/23/19 08:14 Protonix Tab* PO 40 mg DAILY TIMA Administration Potassium Chloride 10 meq 12/07/19 09:00 12/23/19 08:14 Klor Con Er Tab* PO 10 meq DAILY TIMA Administration Senna 2 tab 12/08/19 21:00 12/22/19 20:26 Senokot 8.6 Mg Tab* PO 2 tab BEDTIME TIMA Administration Vital Signs: Vital Signs Temp Pulse Resp BP Pulse Ox 98.4 F 62 18 103/77 96 12/23/19 16:08 12/23/19 05:23 12/23/19 16:08 12/23/19 16:08 12/23/19 08:00 Exam: GENERAL: no acute distress. alert and appropriate. LUNGS: Clear to auscultation bilaterally HEART: Regular rate and rhythm ABDOMEN: Soft, +bowel sounds, non-tender, non-distended. EXTREMITIES: No edema. Left hip incision c/d/i glued. 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 LLE motor 2/ 5 DF and left knee extension limited by pain at hip. RUE/RLE motor 5/5. Sensation slightly diminished on left side. Assessment/Plan: 1. Left hip fracture, S/P [place]irdl[place]: WBAT. f/u Dr. Jenkins. PT/OT 2. Seizures: Continue Depakote 3. History of ICH with left hemiparesis: PT/OT to work with disability 4. DVT Prophylaxis: Eliquis 5. GERD: Protonix 6. Advance Directives: Full code. Jake Waters is surrogate decision maker 7. Muscle tightness: will try Robaxin PRN 12/23/19 19:10
[2019-12-23] MEDS: Senna TAB 8.6 mg* TAB PO SCH (20:06)
[2019-12-23] MEDS: Methocarbamol TAB* 500 MG PO PRN (20:07)
[2019-12-24] MEDS: oxyCODONE TAB* 5 MG TAB PO PRN ×3 (04:08→12:48)
[2019-12-24] MEDS: Apixaban* 2.5 MG TAB PO SCH ×2 (08:59→20:44)
[2019-12-24] MEDS: Pantoprazole TAB * 40 MG TAB PO SCH (08:59)
[2019-12-24] MEDS: Lactobacillus Acidophilus* 1 TAB PO SCH (08:59)
[2019-12-24] MEDS: Divalproex Sprinkle CAP* 125 MG PO SCH ×3 (08:59→20:45)
[2019-12-24] MEDS: Docusate CAP* 100 MG PO SCH ×2 (08:59→20:45)
[2019-12-24] MEDS: Potassium Chlor TAB* 10 MEQ TAB.ER PO SCH (09:00)
--- NOTE | 2019-12-24 18:46 | PN ---
Progress Note Date of Service: 12/24/19 Note: VERÓNICA DEGROOT was visited. Therapy notes read and reviewed. We had a discussion about her progress and that she would likely need more therapy after discharge or more assistance at home. She was upset about this. She wants to talk to her children to see what her options are before committing to going to subacute for more rehab. She had trouble advancing her foot with the built up shoe Current Medications: Active Medications Generic Name Dose Route Start Last Admin Trade Name Freq PRN Reason Stop Dose Admin Acetaminophen 650 mg 12/06/19 13:18 12/21/19 14:00 Tylenol Tab* PO 650 mg Q6H PRN Administration MILD PAIN or TEMP > 100.4 Apixaban 2.5 mg 12/06/19 21:00 12/24/19 08:59 Eliquis* PO 2.5 mg BID TIMA Administration Divalproex Sodium 500 mg 12/06/19 14:00 12/24/19 14:34 Depakote Sprinkle Cap* PO 500 mg TID TIMA Administration Docusate Sodium 100 mg 12/06/19 21:00 12/24/19 08:59 Colace Cap* PO 100 mg BID TIMA Administration Lactobacillus Rhamnosus 1 tab 12/07/19 09:00 12/24/19 08:59 Lactobacillus Acidophilus* PO 1 tab DAILY TIMA Administration Magnesium Hydroxide 30 ml 12/06/19 13:18 12/10/19 17:53 Milk Of Magnesia Liq* PO 30 ml Q6H PRN Administration CONSTIPATION Methocarbamol 500 mg 12/23/19 19:11 12/23/19 20:07 Robaxin Tab* PO 500 mg TID PRN Administration SPASMS Oxycodone HCl 5 mg 12/06/19 13:24 12/24/19 04:08 Roxycodone Tab* PO 5 mg Q4H PRN Administration PAIN - MODERATE Oxycodone HCl 10 mg 12/06/19 13:25 12/24/19 12:48 Roxycodone Tab* PO 10 mg Q4H PRN Administration PAIN - SEVERE Pantoprazole Sodium 40 mg 12/07/19 09:00 12/24/19 08:59 Protonix Tab* PO 40 mg DAILY TIMA Administration Potassium Chloride 10 meq 12/07/19 09:00 12/24/19 09:00 Klor Con Er Tab* PO 10 meq DAILY TIMA Administration Senna 2 tab 12/08/19 21:00 12/23/19 20:06 Senokot 8.6 Mg Tab* PO 2 tab BEDTIME TIMA Administration Vital Signs: Vital Signs Temp Pulse Resp BP Pulse Ox 98 F 74 16 111/75 94 12/24/19 16:06 12/24/19 16:06 12/24/19 16:06 12/24/19 16:06 12/24/19 16:06 Exam: GENERAL: no acute distress. alert and appropriate. LUNGS: Clear to auscultation bilaterally HEART: Regular rate and rhythm ABDOMEN: Soft, +bowel sounds, non-tender, non-distended. EXTREMITIES: No edema. Left hip incision c/d/i glued. 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 LLE motor 2/ 5 DF and left knee extension limited by pain at hip. RUE/RLE motor 5/5. Sensation slightly diminished on left side. Assessment/Plan: 1. Left hip fracture, S/P [place]: WBAT. f/u Dr. Jenkins. PT/OT 2. Seizures: Continue Depakote 3. History of ICH with left hemiparesis: PT/OT to work with disability 4. DVT Prophylaxis: Eliquis 5. GERD: Protonix 6. Advance Directives: Full code. Jake Waters is surrogate decision maker 7. Muscle tightness: Robaxin PRN 12/24/19 18:47
[2019-12-24] MEDS: Senna TAB 8.6 mg* TAB PO SCH (20:45)
[2019-12-25] MEDS: Methocarbamol TAB* 500 MG PO PRN ×2 (05:02→17:34)
[2019-12-25] MEDS: oxyCODONE TAB* 5 MG TAB PO PRN ×2 (06:27→12:28)
[2019-12-25] MEDS: Apixaban* 2.5 MG TAB PO SCH ×2 (09:47→20:48)
[2019-12-25] MEDS: Divalproex Sprinkle CAP* 125 MG PO SCH ×3 (09:47→20:50)
[2019-12-25] MEDS: Potassium Chlor TAB* 10 MEQ TAB.ER PO SCH (09:48)
[2019-12-25] MEDS: Lactobacillus Acidophilus* 1 TAB PO SCH (09:48)
[2019-12-25] MEDS: Pantoprazole TAB * 40 MG TAB PO SCH (09:48)
[2019-12-25] MEDS: Docusate CAP* 100 MG PO SCH ×2 (09:48→20:48)
[2019-12-25] MEDS: Acetaminophen TAB* 325 MG PO PRN ×2 (09:54→20:48)
--- NOTE | 2019-12-25 13:21 | PN ---
Progress Note Date of Service: 12/25/19 Note: VERÓNICA DEGROOT was visited. Nursing and therapy notes read and reviewed. No chest pain, shortness of breath or abdominal pain. No new issues overnight. Current Medications: Active Medications Generic Name Dose Route Start Last Admin Trade Name Freq PRN Reason Stop Dose Admin Acetaminophen 650 mg 12/06/19 13:18 12/25/19 09:54 Tylenol Tab* PO 650 mg Q6H PRN Administration MILD PAIN or TEMP > 100.4 Apixaban 2.5 mg 12/06/19 21:00 12/25/19 09:47 Eliquis* PO 2.5 mg BID TIMA Administration Divalproex Sodium 500 mg 12/06/19 14:00 12/25/19 09:47 Depakote Sprinkle Cap* PO 500 mg TID TIMA Administration Docusate Sodium 100 mg 12/06/19 21:00 12/25/19 09:48 Colace Cap* PO 100 mg BID TIMA Administration Lactobacillus Rhamnosus 1 tab 12/07/19 09:00 12/25/19 09:48 Lactobacillus Acidophilus* PO 1 tab DAILY TIMA Administration Magnesium Hydroxide 30 ml 12/06/19 13:18 12/10/19 17:53 Milk Of Magnesia Liq* PO 30 ml Q6H PRN Administration CONSTIPATION Methocarbamol 500 mg 12/23/19 19:11 12/25/19 05:02 Robaxin Tab* PO 500 mg TID PRN Administration SPASMS Oxycodone HCl 5 mg 12/06/19 13:24 12/24/19 04:08 Roxycodone Tab* PO 5 mg Q4H PRN Administration PAIN - MODERATE Oxycodone HCl 10 mg 12/06/19 13:25 12/25/19 12:28 Roxycodone Tab* PO 10 mg Q4H PRN Administration PAIN - SEVERE Pantoprazole Sodium 40 mg 12/07/19 09:00 12/25/19 09:48 Protonix Tab* PO 40 mg DAILY TIMA Administration Potassium Chloride 10 meq 12/07/19 09:00 12/25/19 09:48 Klor Con Er Tab* PO 10 meq DAILY TIMA Administration Senna 2 tab 12/08/19 21:00 12/24/19 20:45 Senokot 8.6 Mg Tab* PO 2 tab BEDTIME TIMA Administration Vital Signs: Vital Signs Temp Pulse Resp BP Pulse Ox 98.4 F 65 14 105/68 94 12/25/19 06:26 12/25/19 06:26 12/25/19 12:28 12/25/19 06:26 12/25/19 08:00 Exam: GENERAL: no acute distress. alert and appropriate. LUNGS: Clear to auscultation bilaterally HEART: Regular rate and rhythm ABDOMEN: Soft, +bowel sounds, non-tender, non-distended. EXTREMITIES: No edema. Left hip incision c/d/i glued. 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 LLE motor 2/ 5 DF and left knee extension limited by pain at hip. RUE/RLE motor 5/5. Sensation slightly diminished on left side. Assessment/Plan: 1. Left hip fracture, S/P [place]: WBAT. f/u Dr. Jenkins. PT/OT 2. Seizures: Continue Depakote 3. History of ICH with left hemiparesis: PT/OT 4. DVT Prophylaxis: Eliquis 5. GERD: Protonix 6. Advance Directives: Full code. Jake Waters is surrogate decision maker 7. Muscle tightness: Robaxin PRN 12/25/19 13:20
--- NOTE | 2019-12-25 15:05 | PN ---
Progress Note - Progress Note Date of Service: 12/25/19 SOAP: Subjective: [Pt was seen this morning lying in her reclining chair. She states that she is doing very well. Surgery was 12/04/2019. The pt had a left girdlestone surgery. She states that she continues to have pain. She denies any chest pain, SOB, nausea or vomiting. ] Objective: [General: Alert and oriented x3, NAD MSK, LLE: Incision is c/d/i without drainage. No erythema or ecchymosis. She is weak on the left side which is a know issue. She has no pain with calf palpation. Vital Signs Temp 98.4 F 12/25/19 06:26 Pulse 65 12/25/19 06:26 Resp 14 12/25/19 14:50 BP 105/68 12/25/19 06:26 Pulse Ox 94 12/25/19 08:00 Intake & Output 12/24/19 12/25/19 12/25/19 18:59 06:59 18:59 Intake Total 680 320 Balance 680 320 Intake: Oral 680 320 Other: Estimated Void Medium Medium Estimated Stool Amount Small # Voids 1 1 ] Assessment: [S/P Girdlestone procedure, doing well ] Plan: [Continue with PT/OT Continue with pain management Follow up in [address] Jenkins ]
[2019-12-25] MEDS: Senna TAB 8.6 mg* TAB PO SCH (20:49)
[2019-12-26] MEDS: oxyCODONE TAB* 5 MG TAB PO PRN ×2 (06:13→19:24)
[2019-12-26] MEDS: Lactobacillus Acidophilus* 1 TAB PO SCH (09:26)
[2019-12-26] MEDS: Docusate CAP* 100 MG PO SCH ×2 (09:26→19:30)
[2019-12-26] MEDS: Divalproex Sprinkle CAP* 125 MG PO SCH ×3 (09:26→19:31)
[2019-12-26] MEDS: Apixaban* 2.5 MG TAB PO SCH ×2 (09:26→19:31)
[2019-12-26] MEDS: Potassium Chlor TAB* 10 MEQ TAB.ER PO SCH (09:26)
[2019-12-26] MEDS: Pantoprazole TAB * 40 MG TAB PO SCH (09:26)
--- NOTE | 2019-12-26 11:14 | PN ---
Progress Note Date of Service: 12/26/19 Note: VERÓNICA DEGROOT was visited. Nursing and therapy notes read and reviewed. No chest pain, shortness of breath or abdominal pain. Seen by ortho PA yesterday. Current Medications: Active Medications Generic Name Dose Route Start Last Admin Trade Name Freq PRN Reason Stop Dose Admin Acetaminophen 650 mg 12/06/19 13:18 12/25/19 20:48 Tylenol Tab* PO 650 mg Q6H PRN Administration MILD PAIN or TEMP > 100.4 Apixaban 2.5 mg 12/06/19 21:00 12/26/19 09:26 Eliquis* PO 2.5 mg BID TIMA Administration Divalproex Sodium 500 mg 12/06/19 14:00 12/26/19 09:26 Depakote Sprinkle Cap* PO 500 mg TID TIMA Administration Docusate Sodium 100 mg 12/06/19 21:00 12/26/19 09:26 Colace Cap* PO 100 mg BID TIMA Administration Lactobacillus Rhamnosus 1 tab 12/07/19 09:00 12/26/19 09:26 Lactobacillus Acidophilus* PO 1 tab DAILY TIMA Administration Magnesium Hydroxide 30 ml 12/06/19 13:18 12/10/19 17:53 Milk Of Magnesia Liq* PO 30 ml Q6H PRN Administration CONSTIPATION Methocarbamol 500 mg 12/23/19 19:11 12/25/19 17:34 Robaxin Tab* PO 500 mg TID PRN Administration SPASMS Oxycodone HCl 5 mg 12/06/19 13:24 12/24/19 04:08 Roxycodone Tab* PO 5 mg Q4H PRN Administration PAIN - MODERATE Oxycodone HCl 10 mg 12/06/19 13:25 12/26/19 06:13 Roxycodone Tab* PO 10 mg Q4H PRN Administration PAIN - SEVERE Pantoprazole Sodium 40 mg 12/07/19 09:00 12/26/19 09:26 Protonix Tab* PO 40 mg DAILY TIMA Administration Potassium Chloride 10 meq 12/07/19 09:00 12/26/19 09:26 Klor Con Er Tab* PO 10 meq DAILY TIMA Administration Senna 2 tab 12/08/19 21:00 12/25/19 20:49 Senokot 8.6 Mg Tab* PO 2 tab BEDTIME TIMA Administration Vital Signs: Vital Signs Temp Pulse Resp BP Pulse Ox 98.2 F 63 18 121/77 96 12/26/19 05:19 12/26/19 05:19 12/26/19 10:19 12/26/19 05:19 12/26/19 05:19 Exam: GENERAL: no acute distress. alert and appropriate. LUNGS: Clear to auscultation bilaterally HEART: Regular rate and rhythm ABDOMEN: Soft, +bowel sounds, non-tender, non-distended. EXTREMITIES: No edema. Left hip incision c/d/i glued. 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 LLE motor 2/ 5 DF and left knee extension limited by pain at hip. RUE/RLE motor 5/5. Sensation slightly diminished on left side. Assessment/Plan: 1. Left hip fracture, S/P Girdl[place]: WBAT. f/u Dr. Jenkins in 4 more weeks. PT/ OT 2. Seizures: Continue Depakote 3. History of ICH with left hemiparesis: PT/OT 4. DVT Prophylaxis: Eliquis 5. GERD: Protonix 6. Advance Directives: Full code. Jake Waters is surrogate decision maker 7. Muscle tightness: Robaxin PRN 12/26/19 11:14
[2019-12-26] MEDS: Methocarbamol TAB* 500 MG PO PRN (11:39)
[2019-12-26] MEDS: Senna TAB 8.6 mg* TAB PO SCH (19:30)
[2019-12-27] MEDS: Divalproex Sprinkle CAP* 125 MG PO SCH ×3 (09:27→20:05)
[2019-12-27] MEDS: Apixaban* 2.5 MG TAB PO SCH ×2 (09:27→20:05)
[2019-12-27] MEDS: Docusate CAP* 100 MG PO SCH ×2 (09:28→20:10)
[2019-12-27] MEDS: Lactobacillus Acidophilus* 1 TAB PO SCH (09:28)
[2019-12-27] MEDS: Potassium Chlor TAB* 10 MEQ TAB.ER PO SCH (09:29)
[2019-12-27] MEDS: Pantoprazole TAB * 40 MG TAB PO SCH (09:29)
[2019-12-27] MEDS: Methocarbamol TAB* 500 MG PO PRN ×2 (10:42→20:06)
[2019-12-27] MEDS: oxyCODONE TAB* 5 MG TAB PO PRN ×2 (10:42→22:52)
--- NOTE | 2019-12-27 11:25 | PN ---
Progress Note Date of Service: 12/27/19 Note: VERÓNICA DEGROOT was visited. Nursing notes read and reviewed. No chest pain, shortness of breath or abdominal pain. Current Medications: Active Medications Generic Name Dose Route Start Last Admin Trade Name Freq PRN Reason Stop Dose Admin Acetaminophen 650 mg 12/06/19 13:18 12/25/19 20:48 Tylenol Tab* PO 650 mg Q6H PRN Administration MILD PAIN or TEMP > 100.4 Apixaban 2.5 mg 12/06/19 21:00 12/27/19 09:27 Eliquis* PO 2.5 mg BID TIMA Administration Divalproex Sodium 500 mg 12/06/19 14:00 12/27/19 09:27 Depakote Sprinkle Cap* PO 500 mg TID TIMA Administration Docusate Sodium 100 mg 12/06/19 21:00 12/27/19 09:28 Colace Cap* PO 100 mg BID TIMA Administration Lactobacillus Rhamnosus 1 tab 12/07/19 09:00 12/27/19 09:28 Lactobacillus Acidophilus* PO 1 tab DAILY TIMA Administration Magnesium Hydroxide 30 ml 12/06/19 13:18 12/10/19 17:53 Milk Of Magnesia Liq* PO 30 ml Q6H PRN Administration CONSTIPATION Methocarbamol 500 mg 12/23/19 19:11 12/27/19 10:42 Robaxin Tab* PO 500 mg TID PRN Administration SPASMS Oxycodone HCl 5 mg 12/06/19 13:24 12/24/19 04:08 Roxycodone Tab* PO 5 mg Q4H PRN Administration PAIN - MODERATE Oxycodone HCl 10 mg 12/06/19 13:25 12/27/19 10:42 Roxycodone Tab* PO 10 mg Q4H PRN Administration PAIN - SEVERE Pantoprazole Sodium 40 mg 12/07/19 09:00 12/27/19 09:29 Protonix Tab* PO 40 mg DAILY TIMA Administration Potassium Chloride 10 meq 12/07/19 09:00 12/27/19 09:29 Klor Con Er Tab* PO 10 meq DAILY TIMA Administration Senna 2 tab 12/08/19 21:00 12/26/19 19:30 Senokot 8.6 Mg Tab* PO 2 tab BEDTIME TIMA Administration Vital Signs: Vital Signs Temp Pulse Resp BP Pulse Ox 98.6 F 58 18 107/69 96 12/27/19 06:36 12/27/19 06:36 12/27/19 10:42 12/27/19 06:36 12/27/19 06:36 Exam: GENERAL: no acute distress. alert and appropriate. LUNGS: Clear to auscultation bilaterally HEART: Regular rate and rhythm ABDOMEN: Soft, +bowel sounds, non-tender, non-distended. EXTREMITIES: No edema. Left hip incision c/d/i glued. 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 LLE motor 2/ 5 DF and left knee extension limited by pain at hip. RUE/RLE motor 5/5. Sensation slightly diminished on left side. Assessment/Plan: 1. Left hip fracture, S/P Girdl[place]: WBAT. f/u Dr. Jenkins in 4 more weeks. PT/ OT 2. Seizures: Continue Depakote 3. History of ICH with left hemiparesis: PT/OT 4. DVT Prophylaxis: Eliquis 5. GERD: Protonix 6. Advance Directives: Full code. Jake Waters is surrogate decision maker 7. Muscle tightness: Robaxin PRN 12/27/19 11:25
[2019-12-27] MEDS: Senna TAB 8.6 mg* TAB PO SCH (20:11)
[2019-12-28 06:27] LABS: ABS Basophils 0.1 10^3/ul (0-0.2); ABS Eosinophils 0.2 10^3/ul (0-0.6); ABS Monocytes 0.9 10^3/ul (0-0.8); ABS Neutrophils 2.6 10^3/ul (1.5-7.7); Hematocrit 33 % (35-47); Hemoglobin 11.4 g/dL (12.0-16.0); Lymphocyte % 34.2 %; Mean Corpuscular HGB Conc 35 g/dL (31-36); Mean Corpuscular Hemoglobin 33 pg (27-31); Mean Corpuscular Volume 96 fL (80-97); Mean Platelet Volume 7.7 fL (7.4-10.4); Platelet Count 432 10^3/uL (150-450); Red Blood Count 3.46 10^6 /uL (3.70-4.87); Red Cell Distribution Width 14 % (10-15); White Blood Count 5.8 10^3/uL (3.5-10.8)
[2019-12-28 06:43] LABS: Albumin 3.3 g/dL (3.2-5.2); Albumin/Globulin Ratio 1.4 (1-3); BUN/Creatinine Ratio 14.8 (8-20); EGFR African American 119.1 (>60); EGFR Non-African American 98.4 (>60); Globulin 2.4 g/dL (2-4); Potassium 4.2 mmol/L (3.5-5.0); Total Bilirubin 0.4 mg/dL (0.2-1.0); Total Protein 5.7 g/dL (6.4-8.9)
[2019-12-28] MEDS: Potassium Chlor TAB* 10 MEQ TAB.ER PO SCH (07:40)
[2019-12-28] MEDS: Lactobacillus Acidophilus* 1 TAB PO SCH (07:40)
[2019-12-28] MEDS: Apixaban* 2.5 MG TAB PO SCH (07:40)
[2019-12-28] MEDS: Pantoprazole TAB * 40 MG TAB PO SCH (07:40)
[2019-12-28] MEDS: Divalproex Sprinkle CAP* 125 MG PO SCH ×2 (07:41→14:32)
[2019-12-28] MEDS: oxyCODONE TAB* 5 MG TAB PO PRN ×2 (07:41→12:14)
[2019-12-28] MEDS: Docusate CAP* 100 MG PO SCH (07:45)
[2019-12-28 16:03] VITALS: BP 109/80
--- NOTE | 2019-12-29 19:01 | DS ---
DISCHARGE SUMMARY: DATE OF ADMISSION: 12/06/19 DATE OF DISCHARGE: 12/28/19 DISCHARGE DIAGNOSES: 1. Left hip fracture, status post Girdlestone procedure. 2. Seizure disorder. 3. History of intracerebral hemorrhage with left hemiparesis. 4. Gastroesophageal reflux disease. HISTORY OF PRESENT ILLNESS AND HOSPITAL COURSE: For complete history of the events leading up to her rehab stay, please see the history and physical dictated by me on 12/06/19. While on the rehab unit, the patient remained fairly stable from medical point of view. She was noted to have a significant leg length discrepancy as a result of her Girdlestone procedure. [facility] was consulted to put a lift on her shoe. She was maintained on Eliquis for DVT prophylaxis. She was maintained on her Depakote for her seizure disorder. No seizure activity was noted while on the rehab unit. The patient did receive a new shoe with a shoe lift. The shoe was considerably heavier than usual and the patient had a great deal of difficulty advancing her left leg as a result. The patient was seen by both Physical and Occupational Therapy and made good gains with both disciplines. With physical therapy at the time of admission, the patient required mod assist to do bed mobility, she was dependent for transfers and unable to ambulate. With occupational therapy at the time of admission, the patient required set up for upper body dressing, dependent for lower body dressing, dependent for donning and doffing footwear, dependent for toileting, dependent for toilet transfers. By the time of discharge, the patient was still requiring moderate amount of assistance for toileting, moderate amount of assistance for toilet transfers, mod assist for lower body dressing, set up for upper body dressing. With physical therapy at the time of discharge, the patient was mod assist for transfers and unable to ambulate. It was felt that the patient would require ongoing rehab in a slower scale to return home safely. The patient, however, was reluctant to go to one of the subacute rehabs. She was discharged to the swing bed unit on 12/28/19. DISCHARGE DIET: Regular. DISCHARGE MEDICATIONS: Included: 1. Depakote 500 mg 3 times daily. 2. Robaxin 500 mg 3 times a day as needed. 3. Oxycodone 5 mg every 4 hours as needed for pain. 4. Oxycodone 10 mg every 4 hours as needed for severe pain. 5. Klor-Con 10 mEq orally daily. 6. Protonix 40 mg daily. 7. Eliquis 2.5 mg twice daily. The patient will have restorative physical therapy and occupational therapy on the swing bed unit. DISPOSITION: Swing bed. CONDITION AT DISCHARGE: Good. TIME SPENT: Time for this discharge was approximately 35 minutes. [id number]/[facility] #: [id number] MTDD
== END 2019-12-28 16:35 | disposition swing bed (61) | DRG 560 ==
LOC: PMRU 10:20 → UNDODISIN 12-28 16:20
PROVIDERS: ADMIT Physical Medicine & Rehabilitation; ATTEND Physical Medicine & Rehabilitation
PROC: F07Z5ZZ Bed Mobility Treatment (ICD-10-PCS; principal; 2019-12-06)
PROC: F07Z9ZZ Gait Training/Functional Ambulation Treatment (ICD-10-PCS; 2019-12-06)
PROC: F07Z8ZZ Transfer Training Treatment (ICD-10-PCS; 2019-12-06)
PROC: F07Z4ZZ Wheelchair Mobility Treatment (ICD-10-PCS; 2019-12-06)
PROC: F08Z0ZZ Bathing/Showering Techniques Treatment (ICD-10-PCS; 2019-12-06)
PROC: F08Z1ZZ Dressing Techniques Treatment (ICD-10-PCS; 2019-12-06)
PROC: F08Z3ZZ Feeding/Eating Treatment (ICD-10-PCS; 2019-12-06)
PROC: F08Z2ZZ Grooming/Personal Hygiene Treatment (ICD-10-PCS; 2019-12-06)
DX: S72.002D Fracture of unspecified part of neck of left femur, subsequent encounter for closed fracture with routine healing (principal); I69.254 Hemiplegia and hemiparesis following other nontraumatic intracranial hemorrhage affecting left non-dominant side; G40.919 Epilepsy, unspecified, intractable, without status epilepticus; W05.0XXD Fall from non-moving wheelchair, subsequent encounter; M62.432 Contracture of muscle, left forearm; K21.9 Gastro-esophageal reflux disease without esophagitis; Z79.899 Other long term (current) drug therapy
CPT/HCPCS: 36415; 80053; 85025; A9270-GY

== ENCOUNTER 2019-12-28 16:20 | Inpatient (IN) | payer MEDICARE, MEDICAID ==
--- OUTSIDE RECORDS SUMMARY | 2019-12-28 16:31 | XMS REPORT | Continuity of Care Document ---
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 Brenda Myrick NP Onset: of cerebrovascular disease Essential hypertension Brenda Myrick NP Onset: 05/16/2018 Gastroesophageal reflux disease Brenda Myrick NP Onset: 05/16/2018 Social History Type Date Description Comments Sex Unknown ETOH Use Denies alcohol use Tobacco Use Start: Unknown Patient has never smoked Recreational Drug Use Denies Drug Use Smoking Status Reviewed: 06/01/19 Patient has never smoked Exercise Type/Frequency Exercises regularly Physical therapy sat [facility] skills Allergies, Adverse Reactions, Alerts Active Allergies Reaction Severity Comments Date Levetiracetam hallucination 06/01/2019 Inactive Allergies NKDA 12/01/2015 Medications Active Medications SIG Qnty Indications Ordering Provider Date Divalproex Sodium ER 1 in am and 1 at 60tabs Abilio Villanueva, 07/09/2019 night by mouth M.DTequila 500mg Tablets ER 24HR Divalproex Sodium ER 1 in am and 1 at 60tabs Abilio Villanueva, 07/09/2019 night by mouth M.DTequila 500mg Tablets ER 24HR Aspirin 1 by mouth every Stevanosamuel, 11/16/[address] day ( Pt given Rx MD Fozia but not taking ) Magnesium Oxide 1 by mouth every Shira, 11/16/2018 400mg day for 90 days MD Fozia Tablets Amlodipine Besylate 1 by mouth every Unknown day 2.5mg Tablets Klor-Con M20 1 by mouth every Unknown 20Meq day Tablets ER Vitamin B12 1 by mouth every Unknown 1000mcg day Tablets ER Gold Seal 1 sprinkle in Unknown food or brushing with teeth Acidophilus 1 by mouth twice Unknown Capsules daily Immunizations Description No Information Available Vital Signs Date Vital Result Comment 06/01/2019 2:53pm Height 63 inches 5'3" Heart Rate 70 /min BP Systolic Sitting 110 mmHg Rue reg cuff BP Diastolic Sitting 60 mmHg Rue reg cuff Respiratory Rate 15 /min 05/14/2019 9:59am Height 63 inches 5'3" Heart Rate 84 /min BP Systolic Sitting 138 mmHg BP Diastolic Sitting 96 mmHg Respiratory Rate 20 /min Results Test Acquired Date Facility Test Result H/L Range Note Inr/Protime 12/03/2019 [facility] Inr 1.05 Normal 0.82-1.[address] [place] [address] [phone] Laboratory test 12/03/2019 [facility] Partial 31.9 Normal 26.0 -38.[address] [place] [address] PTT [phone] Comp Metabolic 12/03/2019 [facility] Sodium 129 mmol/L Low 135 -[address] [place] [address] [phone] Potassium 3.6 mmol/L Normal 3.5-5.0 Chloride 94 mmol/L Low 101-111 Co2 Carbon Dioxide 25 mmol/L Normal 22-32 Anion Gap 10 mmol/L Normal 2-11 Glucose 105 mg/dL High 70-100 Blood Urea Nitrogen 7 mg/dL Normal 6-24 Creatinine 0.54 mg/dL Normal 0.51-0.95 BUN/Creatinine Ratio 13.0 Normal 8-20 Calcium 9.1 mg/dL Normal 8.6-10.3 Total Protein 6.4 g/dL Normal 6.4-8.9 Albumin 3.9 g/dL Normal 3.2-5.2 Globulin 2.5 g/dL Normal 2-4 Albumin/Globulin Ratio 1.6 Normal 1-3 Total Bilirubin 0.40 mg/dL Normal 0.2-1.0 Alkaline Phosphatase 36 U/L Normal 34-104 Alt 8 U/L Normal 7-52 Ast 14 U/L Normal 13-39 Egfr Non- 113.3 >60 Egfr 137.1 >60 2 Laboratory test 12/03/2019 [facility] Valproic Acid 149.0 High 50-[address] (Depakene) g/[place] [address] [phone] CBC Auto Diff 12/03/2019 [facility] White Blood 12.9 High 3.5- 10.[address] Count 10^3/[place] [address] [phone] Red Blood Count 3.57 10^6/uL Low 3.70-4.87 Hemoglobin 11.7 g/dL Low 12.0-16.0 Hematocrit 34 % Low 35-47 Mean Corpuscular Volume 94 fL Normal 80-97 Mean Corpuscular Hemoglobin 33 pg High 27-31 Mean Corpuscular HGB Conc 35 g/dL Normal 31-36 Red Cell Distribution Width 14 % Normal 10-15 Platelet Count 312 10^3/uL Normal 150-450 Mean Platelet Volume 7.7 fL Normal 7.4-10.4 Abs Neutrophils 9.8 10^3/uL High 1.5-7.7 Abs Lymphocytes 1.0 10^3/uL Normal 1.0-4.8 Abs Monocytes 2.1 10^3/uL High 0-0.8 Abs Eosinophils 0.0 10^3/uL Normal 0-0.6 Abs Basophils 0.0 10^3/uL Normal 0-0.2 Abs Nucleated RBC 0.0 10^3/uL Granulocyte % 75.9 % Lymphocyte % 7.7 % Monocyte % 16.1 % Eosinophil % 0.0 % Basophil % 0.3 % Nucleated Red Blood Cells % 0.0 1 Standard intensity warfarin therapeutic range: 2.0-3.0 High intensity warfarin therapeutic range: 2.5-3.5 2 Because ethnic data is not always readily available, this report includes an eGFR for both -Americans and non- Americans. The National Kidney Disease Education Program (NKDEP) does not endorse the use of the MDRD equation for patients that are not between the ages of 18 and 70, are , have extremes of body size, muscle mass, or nutritional status, or are non- or non-. According to the National Kidney Foundation, irrespective of diagnosis, the stage of the disease is based on the level of kidney function: Stage Description GFR(mL/min/1.73 m(2)) 1 Kidney damage with normal or decreased GFR 90 2 Kidney damage with mild decrease in GFR 60-89 3 Moderate decrease in GFR 30-59 4 Severe decrease in GFR 15-29 5 Kidney failure <15 (or dialysis) Procedures Description No Information Available Medical Devices Description No Information Available Encounters Type Date Location Provider Dx Diagnosis Office Visit 12/05/2019 [facility] Brea Krish, D72.829 Elevated white 9:41a Assoc,pc TURF GROWER blood cell count, Hospitalists unspecified G40.909 Epilepsy, unsp, not intractable, without status epilepticus Office Visit 12/04/2019 9:40a [facility] Brea Krish, S72.002A Fracture of Assoc,pc TURF GROWER unsp part of Hospitalists neck of left femur, init D72.829 Elevated white blood cell count, unspecified G40.909 Epilepsy, unsp, not intractable, without status epilepticus I69.354 Hemiplga following cerebral infrc affecting left nondom side Office Visit 10/14/2019 [facility] Jennifer Dorsey, J96.01 Acute respiratory 10:32a france Soto M.D. failure with Hospitalists hypoxia G40.901 Epilepsy, unsp, not intractable, with status epilepticus I69.154 Hemiplga following ntrm intcrbl hemor aff left nondom side R13.19 Other dysphagia I10 Essential (primary) hypertension Office Visit 10/13/2019 10:31a Intensivists Nikki G40.901 Epilepsy, unsp , Stocking, ADMINISTRATIVE AND PROGRAM SPECIALIST not intractable, with status epilepticus G93.89 Other specified disorders of brain I10 Essential (primary) hypertension Z91.19 Patient's noncompliance w oth medical treatment and regimen Office Visit 10/12/2019 10:30a [facility] Nikki J96.01 Acute respiratory Stocking, ADMINISTRATIVE AND PROGRAM SPECIALIST failure with hypoxia G40.901 Epilepsy, unsp, not intractable, with status epilepticus R00.0 Tachycardia, unspecified Assessments Date Code Description Provider 12/06/2019 S72.002A Fracture of unspecified part of neck of Brea Krish, TURF GROWER left femur, initial encounter for closed fracture 12/06/2019 D72.829 Elevated white blood cell count, Brea Krish, TURF GROWER unspecified 12/06/2019 W05.0xxA Fall from non-moving wheelchair, initial Brea Krish, TURF GROWER encounter 12/05/2019 D72.829 Elevated white blood cell count, Brea Krish, TURF GROWER unspecified 12/05/2019 G40.909 Epilepsy, unspecified, not intractable, Brea Krish, TURF GROWER without status epilepticus 12/04/2019 S72.002A Fracture of unspecified part of neck of Brea Krish, TURF GROWER left femur, initial encounter for closed fracture 12/04/2019 D72.829 Elevated white blood cell count, Brea Krish, TURF GROWER unspecified 12/04/2019 G40.909 Epilepsy, unspecified, not intractable, Brea Krish, TURF GROWER without status epilepticus 12/04/2019 I69.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, 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 12/03/2019 S72.002A Fracture of unspecified part of neck of Geri O'rojelio , PA-C left femur, initial encounter for closed fracture 12/03/2019 D72.829 Elevated white blood cell count, Geri O'rojelio, PA-C unspecified 12/03/2019 I10 Essential (primary) hypertension Geri O'rojelio, PA-C 12/03/2019 K21.9 Gastro-esophageal reflux disease without Geri O'rojelio, PA-C esophagitis 12/03/2019 G40.909 Epilepsy, unspecified, not intractable, Geri O'rojelio, PA-C without status epilepticus 12/03/2019 W05.0xxA Fall from non-moving wheelchair, initial Geri O'rojelio , PA-C encounter 10/14/2019 J96.01 Acute respiratory failure with hypoxia Jennifer Dorsey M.D. 10/14/2019 G40.901 Epilepsy, unspecified, not intractable, Jennifer Dorsey M.D. 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 10/14/2019 I10 Essential (primary) hypertension Jennifer Dorsey M.D. 10/13/2019 G40.901 Epilepsy, unspecified, not intractable, Nikki Stocking , ADMINISTRATIVE AND PROGRAM SPECIALIST with status epilepticus 10/13/2019 G93.89 Other specified disorders of brain Nikki Stocking, ADMINISTRATIVE AND PROGRAM SPECIALIST 10/13/2019 I10 Essential (primary) hypertension Nikki Stocking, ADMINISTRATIVE AND PROGRAM SPECIALIST 10/13/2019 Z91.19 Patient's noncompliance with other medical Nikki Stocking, ADMINISTRATIVE AND PROGRAM SPECIALIST treatment and regimen 10/12/2019 J96.01 Acute respiratory failure with hypoxia Nikki Stocking, ADMINISTRATIVE AND PROGRAM SPECIALIST 10/12/2019 G40.901 Epilepsy, unspecified, not intractable, Nikki Stocking , ADMINISTRATIVE AND PROGRAM SPECIALIST with status epilepticus 10/12/2019 R00.0 Tachycardia, unspecified Nikki Stocking, ADMINISTRATIVE AND PROGRAM SPECIALIST Plan of Treatment 06/01/2019 - Shaheed Peraza DO FACCR94.31 Abnormal electrocardiogram [ECG] [ EKG]New Orders:Stress Test, Pharmacologic Nuclear (Lexiscan), Ordered: Comments:You have an abnormal EKG. We are going to evaluate for heart muscle or artery problems with an echocardiogram and chemical stress test. If these are normal, then it will be nothing to worry about.Follow up:f/u prnI10 Essential (primary) hypertensionNew Orders:Echocardiogram, Ordered: I69.154 Hemiplegia and hemiparesis following nontraumatic intracereb Functional Status Description No Information Available Mental Status Description No Information Available Referrals Description No Information Available
--- OUTSIDE RECORDS SUMMARY | 2019-12-28 16:31 | XMS REPORT ---
:1955 Author Organization [facility] Care Team Providers Name Role Phone Unavailable Unavailable Unavailable Problems Condition Condition Condition Status Onset Resolution Last Treating Comments Name Details Category Date Date Treatment Clinician Date Hemiplegia Hemiplegia Diagnosis Active Nereyda and and 2-13 Wallace hemiparesis hemiparesis [id number] following following cerebral cerebral infarction infarction affecting affecting left left non-dominan non-dominan t side t side Epilepsy, Epilepsy, Diagnosis Active Nereyda unspecified unspecified 2-13 Wallace , not , not [id number] intractable intractable , without , without status status epilepticus epilepticus Essential Essential Diagnosis Active Nereyda (primary) (primary) 2-13 Wallace hypertensio hypertensio [id number] n n Hyperlipide Hyperlipide Diagnosis Active Nereyda ford, ford, 2-13 Wallace unspecified unspecified [id number] Pain frequent Pain Mgmt Resolve 2019-11-10 Yamile pain d 2-13 12:55:00 (Clay) 11:00: [id number] Respiratory dyspnea Respirator Resolve 2019-11-17 Yamile present y d 2-13 11:00:00 (Clay) 11:00: [id number] Integument skin Integument Resolve 2019-11-03 Yamile integrity d 2-13 11:55:00 (Clay) risk 11:00: [id number] Elimination urinary Eliminatio Resolve 2019-11-03 Yamile incontinenc n d 2-13 11:55:00 (Clay) e 11:00: [id number] Neuro confusion Neuro/Emot Active Yamile present ion 2-13 (Clay) 11:00: [id number] Neuro anxiety Neuro/Emot Active 2020-0 Yamile present ion 2-13 (Clay) 11:00: [id number] Activity ADL Activity Active 2019-0 Yamile assistance 2-13 (Clay) required 11:00: [id number] Activity self-care Activity Active 2020-0 Yamile deficit 2-13 (Clay) 11:00: [id number] Safety fall risk Safety Active 2019-0 Yamile factor 2-13 (Clay) present 11:00: [id number] Safety risk for Safety Active 2019-0 Yamile hospitaliza 2-13 (Clay) tion 11:00: [id number] Safety can be left Safety Active 2019-0 Yamile alone for 2-13 (Clay) only short 11:00: Muller [id number] Medication oral med Meds Active Yamile assistance 2-13 (Clay) required 11:00: [id number] Medication potential Meds Active Yamile clinically 2-13 (Clay) significant 11:00: Muller medication [id number] issue Bed transfer PT/OT: Bed Active Nereyda Mobility/Tr deficit: Mobility/T 2-21 Wallace ansfer shower/tub ransfer 13:18: [id number] 00 Balance/End balance/food service coordinator PT/OT: Active Nereyda urance rdination Balance/En 2-21 Wallace deficit durance 13:18: [id number] 00 Balance/End endurance PT/OT: Active Nereyda urance deficit Balance/En 2-21 Wallace durance 13:18: [id number] 00 Gait/Locomo gait PT/OT: Active Nereyda tion assistive Gait/Locom 2-21 Wallace problems device otion 13:18: [id number] present 00 Gait/Locomo gait PT/OT: Active 2020- Nereyda tion deficit Gait/Locom 2-21 Wallace problems otion 13:18: [id number] 00 Elimination urinary Eliminatio Resolve 2019-11-17 Sonja [...] Medication? Clinician (SIG) Name Name potassium potassium 2020- Yes Stevanovic Unknown Unknown chloride ER chloride ER 10-29 MD,Radomir 10 mEq 10 mEq tablet,exte tablet,exte nded nded release release Depakote Depakote 2019- Yes Stevanovic Unknown Unknown 500 mg 500 mg 10-29 MD,Radomir tablet,lanie tablet,lanie yed release yed release Depakote Depakote 2019- Yes Stevanovic Unknown Unknown 125 mg 125 mg 10-29 MD,Radomir tablet,lanie tablet,lanie yed release yed release Probiotic Probiotic 2019- Yes Stevanovic Unknown Unknown 10 billion 10 billion 10-29 MD,Radomir cell cell capsule capsule Depakote Depakote 2019- Yes Stevanovic Unknown Unknown 125 mg 125 mg 11-10 MD,Radomir tablet,lanie tablet,lanie yed release yed release [...]
--- OUTSIDE RECORDS SUMMARY | 2019-12-28 16:31 | XMS REPORT | Continuity of Care Document ---
:1955 External Reference #:[id number] Author Name Abilio Villanueva M.D. 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 Inr 1.05 Normal 0.82-1.[address] [place] [address] [phone] Laboratory test 12/03/2019 [facility] Partial 31.9 Normal 26.0 -38.[address] [place] [address] PTT [phone] Comp Metabolic 12/03/2019 [facility] Sodium 129 mmol/L Low 135 -[address] [place] [address] [phone] Potassium 3.6 mmol/L Normal 3.5-5.0 Chloride 94 [...] Egfr 137.1 >60 2 Laboratory test 12/03/2019 [facility] Valproic Acid 149.0 High 50-[address] (Depakene) g/[place] [address] [phone] CBC Auto Diff 12/03/2019 [facility] White Blood 12.9 High 3.5- 10.[address] Count 10^3/[place] [address] [phone] Red Blood Count 3.57 10^6/uL Low 3.70-4.87 [...] 5 Kidney failure <15 (or dialysis) Procedures Date Code Description Status 10/13/2019 07555 EEG Recording In Coma Or Sleep Only Completed 10/12/2019 35443 EEG Recording In Coma Or Sleep Only Completed Medical Devices Description No Information Available Encounters Type Date Location Provider Dx Diagnosis Office Visit 12/05/2019 [facility] Brea Krish, D72.829 Elevated white 9:41a Assoc,pc SERVICES MANAGER blood cell count, Hospitalists unspecified G40.909 Epilepsy, unsp, not intractable, without status epilepticus Office Visit 12/04/2019 9:40a [facility] Brea Krish, S72.002A Fracture of Assoc,pc SERVICES MANAGER unsp part of Hospitalists neck of left femur, init D72.829 Elevated white blood cell count, unspecified G40.909 Epilepsy, unsp, not intractable, without status epilepticus I69.354 Hemiplga following cerebral infrc affecting left nondom side Office Visit 12/03/2019 12:16p [facility] Maritza Jenkins, S72.002A Fracture of at Raquel Aden unsp part of neck of left femur, init W05.0xxA Fall from non-moving wheelchair, initial encounter Office Visit 10/14/2019 [facility] Jennifer Dorsey, J96.01 Acute respiratory 10:32a Assfrance alfred M.D. failure with Hospitalists hypoxia G40.901 Epilepsy, unsp, not intractable, with status epilepticus I69.154 Hemiplga following ntrm intcrbl hemor aff left nondom side R13.19 Other dysphagia I10 Essential (primary) hypertension Office Visit 10/13/2019 [facility] Ab[facility] Kelly G40.209 Local-rel 7:00a [facility] [place], M.D. 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 nontraumatic intracerebral hemorrhage G40.201 Local-[facility] symptc epi w cmplx prt seiz, not ntrct, w stat epi Z91.19 Patient's noncompliance w oth medical treatment and regimen Office Visit 10/12/2019 10:30a [facility] Nikki J96.01 Acute respiratory Stocking, OSD CLERK failure with hypoxia G40.901 Epilepsy, unsp, not intractable, with status epilepticus R00.0 Tachycardia, unspecified Assessments Date Code Description Provider 12/06/2019 S72.002A Fracture of unspecified part of neck of Brea Krish, SERVICES MANAGER left femur, initial encounter for closed fracture 12/06/2019 D72.829 Elevated white blood cell count, Brea Krish, SERVICES MANAGER unspecified 12/06/2019 W05.0xxA Fall from non-moving wheelchair, initial Brea Krish, SERVICES MANAGER encounter 12/05/2019 D72.829 Elevated white blood cell count, Brea Krish, SERVICES MANAGER unspecified 12/05/2019 G40.909 Epilepsy, unspecified, not intractable, Brea Krish, SERVICES MANAGER without status epilepticus 12/04/2019 S72.002A Fracture of unspecified part of neck of Brea Krish, SERVICES MANAGER left femur, initial encounter for closed fracture 12/04/2019 D72.829 Elevated white blood cell count, Brea Krish, SERVICES MANAGER unspecified 12/04/2019 G40.909 Epilepsy, unspecified, not intractable, Brea Krish, SERVICES MANAGER without status epilepticus 12/04/2019 I69.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 left femur, initial encounter for closed fracture 12/03/2019 S72.002A Fracture of unspecified part of neck of Geri Zambrano PA-C left femur, initial encounter for closed fracture 12/03/2019 W05.0xxA Fall from non-moving wheelchair, initial Maritza Jenkins M.D. encounter 12/03/2019 D72.829 Elevated white blood cell count, Geri Zambrano PA-C unspecified 12/03/2019 I10 Essential (primary) hypertension Geri Zambrano PA-C 12/03/2019 K21.9 Gastro-esophageal reflux disease without Geri Zambrano PA-C esophagitis 12/03/2019 G40.909 Epilepsy, unspecified, not intractable, Geri Zambrano PA-C without status epilepticus 12/03/2019 W05.0xxA Fall from non-moving wheelchair, initial Geri Zambrano PA-C encounter 10/14/2019 J96.01 Acute respiratory failure with hypoxia Jennifer Dorsey M.D. 10/14/2019 G40.901 Epilepsy, unspecified, not intractable, Jennifer Dorsey M.D. 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 10/14/2019 I10 Essential (primary) hypertension Jennifer Dorsey M.D. 10/13/2019 G40.209 Localization-related (focal) (partial) Abilio Villanueva M.D. symptomatic epilepsy and epileptic syndromes with complex partial seizures, not intractable, without status epilepticus 10/13/2019 G40.901 Epilepsy, unspecified, not intractable, Nikki Stocking , OSD CLERK with status epilepticus 10/13/2019 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 intracerebral hemorrhage 10/13/2019 G93.89 Other specified disorders of brain Nikki Stocking, OSD CLERK 10/13/2019 Z91.19 Patient's noncompliance with other medical Abilio Villanueva M.D. treatment and regimen 10/13/2019 I10 Essential (primary) hypertension Nikki Stocking, OSD CLERK 10/13/2019 Z91.19 Patient's noncompliance with other medical Nikki Stocking, OSD CLERK treatment and regimen 10/12/2019 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 intracerebral hemorrhage 10/12/2019 G40.201 Localization-related (focal) (partial) Abilio Villanueva M.D. symptomatic epilepsy and epileptic syndromes with complex partial seizures, not intractable, with status epilepticus 10/12/2019 J96.01 Acute respiratory failure with hypoxia Nikki Stocking, OSD CLERK 10/12/2019 Z91.19 Patient's noncompliance with other medical Abilio Villanueva M.D. treatment and regimen 10/12/2019 G40.901 Epilepsy, unspecified, not intractable, Nikki Stocking , OSD CLERK with status epilepticus 10/12/2019 R00.0 Tachycardia, unspecified Nikki Stocking, OSD CLERK Plan of Treatment 06/01/2019 - Shaheed Peraza [...]
--- OUTSIDE RECORDS SUMMARY | 2019-12-28 16:31 | XMS REPORT | Continuity of Care Document ---
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 [phone] Medicine Problems Active Problems Provider Date Hemiplegia [...] Exercise Type/Frequency Exercises regularly Physical therapy sat [facility] for life skills Allergies, Adverse Reactions, [...] ER 24HR Aspirin 1 by mouth every Kwesianosmauel, 11/16/[address] day ( Pt [...] Test Result H/L Range Note Inr/Protime 12/03/2019 [facility] Inr 1.05 Normal 0.82-1.[address] [place] [address] [phone] Laboratory test 12/03/2019 [facility] Partial 31.9 Normal 26.0 -38.[address] [address] PTT [phone] Comp Metabolic 12/03/2019 [facility] Sodium 129 mmol/L Low 135 -[address] [place] [address] [phone] Potassium 3.6 mmol/L Normal 3.5-5.0 Chloride 94 [...] Egfr 137.1 >60 2 Laboratory test 12/03/2019 [facility] Valproic Acid 149.0 High 50-[address] (Depakene) g/[place] [address] [phone] CBC Auto Diff 12/03/2019 [facility] White Blood 12.9 High 3.5- 10.[address] Count 10^3/[place] [address] [phone] Red Blood Count 3.57 10^6/uL Low 3.70-4.87 [...] dialysis) Procedures Date Code Description Status 10/13/2019 70975 EEG Recording In Coma Or Sleep Only Completed 10/12/2019 40671 EEG Recording In Coma Or Sleep Only Completed Medical Devices Description No Information Available Encounters Type Date Location Provider Dx Diagnosis Office Visit 12/05/2019 [facility] Brea Krish, D72.829 Elevated white 9:41a Assoc,pc RN DIABETES blood cell count, Hospitalists unspecified G40.909 Epilepsy, unsp, not intractable, without status epilepticus Office Visit 12/04/2019 9:40a [facility] Brea Krish, S72.002A Fracture of Assoc,pc RN DIABETES unsp part of Hospitalists neck of left femur, init D72.829 Elevated white blood cell count, unspecified G40.909 Epilepsy, unsp, not intractable, without status epilepticus I69.354 Hemiplga following cerebral infrc affecting left nondom side Office Visit 12/03/2019 9:34a [facility] Geri S72.002A Fracture of Assoc,pc PADDY Zambrano unsp part of Hospitalists neck of left femur, init D72.829 Elevated white blood cell count, unspecified I10 Essential (primary) hypertension K21.9 Gastro-esophageal reflux disease without esophagitis G40.909 Epilepsy, unsp, not intractable, without status epilepticus W05.0xxA Fall from non-moving wheelchair, initial encounter Office Visit 12/03/2019 12:16p [facility] Maritza Jenkins, S72.002A Fracture of at Raquel Aden unsp part of neck of left femur, init W05.0xxA Fall from non-moving wheelchair, initial encounter Office Visit 10/14/2019 [facility] Jennifer Dorsey, J96.01 Acute respiratory 10:32a france Soto M.D. failure with Hospitalists hypoxia G40.901 Epilepsy, unsp, not intractable, with status epilepticus I69.154 Hemiplga following ntrm intcrbl hemor aff left nondom side R13.19 Other dysphagia I10 Essential (primary) hypertension Office Visit 10/13/2019 [facility] Ab[facility] Kelly G40.209 Local-rel 7:00a Chris Villanueva M.D. 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 nontraumatic intracerebral hemorrhage G40.201 Local-rel symptc epi w cmplx prt seiz, not ntrct, w stat epi Z91.19 Patient's noncompliance w oth medical treatment and regimen Office Visit 10/12/2019 10:30a [facility] Nikki J96.01 Acute respiratory Stocking, CIVILIAN TECHNICIAN failure with hypoxia G40.901 Epilepsy, unsp, not intractable, with status epilepticus R00.0 Tachycardia, unspecified Assessments Date Code Description Provider 12/06/2019 S72.002A Fracture of unspecified part of neck of Brae Krish, RN DIABETES left femur, initial encounter for closed fracture 12/06/2019 D72.829 Elevated white blood cell count, Brea Krish, RN DIABETES unspecified 12/06/2019 W05.0xxA Fall from non-moving wheelchair, initial Brea Krish, RN DIABETES encounter 12/05/2019 D72.829 Elevated white blood cell count, Brea Krish, RN DIABETES unspecified 12/05/2019 G40.909 Epilepsy, unspecified, not intractable, Brea Krish, RN DIABETES without status epilepticus 12/04/2019 S72.002A Fracture of unspecified part of neck of Brea Krish, RN DIABETES left femur, initial encounter for closed fracture 12/04/2019 D72.829 Elevated white blood cell count, Brea Krish, RN DIABETES unspecified 12/04/2019 G40.909 Epilepsy, unspecified, not intractable, Brea Krish, RN DIABETES without status epilepticus 12/04/2019 I69.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, 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 intracerebral hemorrhage 10/13/2019 G93.89 Other specified disorders of brain Nikki Stocking, CIVILIAN TECHNICIAN 10/13/2019 Z91.19 Patient's noncompliance with other medical Abilio Villanueva M.D. 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 intracerebral hemorrhage 10/12/2019 G40.201 Localization-related (focal) (partial) Abilio Villanueva M.D. symptomatic epilepsy and epileptic syndromes with complex partial seizures, not intractable, with status epilepticus 10/12/2019 J96.01 Acute respiratory failure with hypoxia Nikki Stocking, CIVILIAN TECHNICIAN 10/12/2019 Z91.19 Patient's noncompliance with other medical Abilio Villanueva M.D. treatment and regimen 10/12/2019 G40.901 Epilepsy, unspecified, not intractable, Nikki Stocking , CIVILIAN TECHNICIAN with status epilepticus 10/12/2019 R00.0 Tachycardia, unspecified Nikki Stocking, CIVILIAN TECHNICIAN Plan of Treatment 06/01/2019 - Shaheed Peraza [...]
--- OUTSIDE RECORDS SUMMARY | 2019-12-28 16:31 | XMS REPORT | Continuity of Care Document ---
:1955 External Reference #:[id number] Author Name Maritza Jenkins M.D. 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 Inr 1.05 Normal 0.82-1.[address] [place] [address] [phone] Laboratory test 12/03/2019 [facility] Partial 31.9 Normal 26.0 -38.[address] [address] PTT [phone] Comp Metabolic 12/03/2019 [facility] Sodium 129 mmol/L Low 135 -[address] [place] [address] [phone] Potassium 3.6 mmol/L Normal 3.5-5.0 Chloride 94 [...] Egfr 137.1 >60 2 Laboratory test 12/03/2019 [facility] Valproic Acid 149.0 High 50-[address] (Depakene) g/[place] [address] [phone] CBC Auto Diff 12/03/2019 [facility] White Blood 12.9 High 3.5- 10.[address] Count 10^3/[place] [address] [phone] Red Blood Count 3.57 10^6/uL Low 3.70-4.87 [...] dialysis) Procedures Date Code Description Status 10/13/2019 31812 EEG Recording In Coma Or Sleep Only Completed 10/12/2019 48247 EEG Recording In Coma Or Sleep Only Completed Medical Devices Description No Information Available Encounters Type Date Location Provider Dx Diagnosis Office Visit 12/05/2019 [facility] Brea Krish, D72.829 Elevated white 9:41a Assoc,pc BRIDGE OPENER blood cell count, Hospitalists unspecified G40.909 Epilepsy, unsp, not intractable, without status epilepticus Office Visit 12/04/2019 9:40a [facility] Brea Krish, S72.002A Fracture of Assoc,pc BRIDGE OPENER unsp part of Hospitalists neck of left femur, init D72.829 Elevated white blood cell count, unspecified G40.909 Epilepsy, unsp, not intractable, without status epilepticus I69.354 Hemiplga following cerebral infrc affecting left nondom side Office Visit 12/03/2019 12:16p [facility] Maritza Jenkins, S72.002A Fracture of at Raquel Aden unsp part of neck of left femur, init W05.0xxA Fall from non-moving wheelchair, initial encounter Office Visit 10/14/2019 [facility] Jennifer Dorsey, J96.01 Acute respiratory 10:32a Assocfrance M.D. failure with Hospitalists hypoxia G40.901 Epilepsy, unsp, not intractable, with status epilepticus I69.154 Hemiplga following ntrm intcrbl hemor aff left nondom side R13.19 Other dysphagia I10 Essential (primary) hypertension Office Visit 10/13/2019 10:31a [facility] Nikki G40.901 Epilepsy, unsp , Stocking, CALCULATOR OPERATOR not intractable, with status epilepticus G93.89 Other specified disorders of brain I10 Essential (primary) hypertension Z91.19 Patient's noncompliance w oth medical treatment and regimen Office Visit 10/12/2019 10:30a [facility] Nikki J96.01 Acute respiratory Stocking, CALCULATOR OPERATOR failure with hypoxia G40.901 Epilepsy, unsp, not intractable, with status epilepticus R00.0 Tachycardia, unspecified Assessments Date Code Description Provider 12/06/2019 S72.002A Fracture of unspecified part of neck of Brea Krish, BRIDGE OPENER left femur, initial encounter for closed fracture 12/06/2019 D72.829 Elevated white blood cell count, Brea Krish, BRIDGE OPENER unspecified 12/06/2019 W05.0xxA Fall from non-moving wheelchair, initial Brea Krish, BRIDGE OPENER encounter 12/05/2019 D72.829 Elevated white blood cell count, Brea Krish, BRIDGE OPENER unspecified 12/05/2019 G40.909 Epilepsy, unspecified, not intractable, Brea Krish, BRIDGE OPENER without status epilepticus 12/04/2019 S72.002A Fracture of unspecified part of neck of Brea Krish, BRIDGE OPENER left femur, initial encounter for closed fracture 12/04/2019 D72.829 Elevated white blood cell count, Brea Krish, BRIDGE OPENER unspecified 12/04/2019 G40.909 Epilepsy, unspecified, not intractable, Brea Krish, BRIDGE OPENER without status epilepticus 12/04/2019 I69.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, BRIDGE OPENER cerebral infarction affecting left non-dominant side 12/03/2019 [...] unspecified 12/03/2019 I10 Essential (primary) hypertension Geri Nila'rojelio, PA-C 12/03/2019 K21.9 Gastro-esophageal reflux disease without Geri O'rojelio, PA-C esophagitis 12/03/2019 G40.909 Epilepsy, unspecified, not intractable, Geri Nila'rojelio, PA-C without status epilepticus 12/03/2019 W05.0xxA Fall from non-moving wheelchair, initial Geri O'rojelio PA-C encounter 10/14/2019 J96.01 Acute respiratory failure [...] Epilepsy, unspecified, not intractable, Nikki Stocking , CALCULATOR OPERATOR with status epilepticus 10/13/2019 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 intracerebral hemorrhage 10/13/2019 G93.89 Other specified disorders of brain Nikki Stocking, CALCULATOR OPERATOR 10/13/2019 Z91.19 Patient's noncompliance with other medical Abilio Villanueva M.D. treatment and regimen 10/13/2019 I10 Essential (primary) hypertension Nikki Stocking, CALCULATOR OPERATOR 10/13/2019 Z91.19 Patient's noncompliance with other medical Nikki Stocking, CALCULATOR OPERATOR treatment and regimen 10/12/2019 I69.198 Other sequelae of nontraumatic Abilio S. Kay, M.D. intracerebral hemorrhage 10/12/2019 G40.201 Localization-related (focal) (partial) Abilio Villanueva M.D. symptomatic epilepsy and epileptic syndromes with complex partial seizures, not intractable, with status epilepticus 10/12/2019 J96.01 Acute respiratory failure with hypoxia Nikki Stocking, CALCULATOR OPERATOR 10/12/2019 Z91.19 Patient's noncompliance with other medical Abilio Villanueva M.D. treatment and regimen 10/12/2019 G40.901 Epilepsy, unspecified, not intractable, Nikki Stocking , CALCULATOR OPERATOR with status epilepticus 10/12/2019 R00.0 Tachycardia, unspecified Nikki Stocking, CALCULATOR OPERATOR Plan of Treatment 06/01/2019 - Shaheed Peraza [...]
--- OUTSIDE RECORDS SUMMARY | 2019-12-28 16:31 | XMS REPORT ---
:1955 Author Organization [facility] Care Team Providers Name Role Phone Unavailable Unavailable Unavailable Problems Condition Condition Condition Status Onset Resolution Last Treating Comments Name Details Category Date Date Treatment Clinician Date Hemiplegia Hemiplegia Diagnosis Active Nereyda and and 2-13 Wallace hemiparesis hemiparesis [id number] following following cerebral cerebral infarction infarction affecting affecting left left non-dominan non-dominan t side t side Epilepsy, Epilepsy, Diagnosis Active Nereyda unspecified unspecified 2-13 Wallace , not , not [id number] intractable intractable , without , without status status epilepticus epilepticus Essential Essential Diagnosis Active Nereyda (primary) (primary) 2-13 Wallace hypertensio hypertensio [id number] n n Hyperlipide Hyperlipide Diagnosis Active Nereyda ford, ford, 2-13 Wallace unspecified unspecified [id number] Pain frequent Pain Mgmt Resolve 2019-11-10 Yamile pain d 2-13 12:55:00 (Clay) 11:00: [id number] Respiratory dyspnea Respirator Resolve 2019-11-17 Yamile present y d 2-13 11:00:00 (Clay) 11:00: [id number] Integument skin Integument Resolve 2019-11-03 Yamile integrity d 2-13 11:55:00 (Clay) risk 11:00: [id number] Elimination urinary Eliminatio Resolve 2019-11-03 Yamile incontinenc n d 2-13 11:55:00 (Clay) e 11:00: [id number] Neuro confusion Neuro/Emot Active Yamile present ion 2-13 (Clay) 11:00: [id number] Neuro anxiety Neuro/Emot Active 2020-0 Yamile present ion 2-13 (Clay) 11:00: [id number] Activity ADL Activity Active 2019-0 Yamile assistance 2-13 (Clay) required 11:00: [id number] Activity self-care Activity Active 2020-0 Yamile deficit 2-13 (Clay) 11:00: [id number] Safety fall risk Safety Active 2019-0 Yamile factor 2-13 (Clay) present 11:00: [id number] Safety risk for Safety Active 2019-0 Yamile hospitaliza 2-13 (Clay) tion 11:00: [id number] Safety can be left Safety Active 2019-0 Yamile alone for 2-13 (Clay) only short 11:00: Muller [id number] Medication oral med Meds Active Yamile assistance 2-13 (Clay) required 11:00: [id number] Medication potential Meds Active Yamile clinically 2-13 (Clay) significant 11:00: Muller medication [id number] issue Bed transfer PT/OT: Bed Active Nereyda Mobility/Tr deficit: Mobility/T 2-21 Wallace ansfer shower/tub ransfer 13:18: [id number] Balance/End balance/community relations coordinator PT/OT: Active Nereyda urance rdination Balance/En 2-21 Wallace deficit durance 13:18: [id number] 00 Balance/End endurance PT/OT: Active Nereyda urance deficit Balance/En 2-21 Wallace durance 13:18: [id number] 00 Gait/Locomo gait PT/OT: Active Nereyda tion assistive Gait/Locom 2-21 Wallace problems device otion 13:18: [id number] present 00 Gait/Locomo gait PT/OT: Active 2020- Nereyda tion deficit Gait/Locom 2-21 Wallace problems otion 13:18: [id number] 00 Elimination urinary Eliminatio Resolve 2019-11-17 Sonja [...]
--- OUTSIDE RECORDS SUMMARY | 2019-12-28 16:31 | XMS REPORT | Continuity of Care Document ---
:1955 External Reference #:[id number] Author Name Abilio Villanueva M.D. 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 Medicine Problems Active Problems Provider Date Hemiplegia [...] Test Result H/L Range Note Inr/Protime 12/03/2019 [facility] Inr 1.05 Normal 0.82-1.[address] [place] [address] [phone] Laboratory test 12/03/2019 [facility] Partial 31.9 Normal 26.0 -38.[address] [address] PTT [phone] Comp Metabolic 12/03/2019 [facility] Sodium 129 mmol/L Low 135 -[address] [place] [address] [phone] Potassium 3.6 mmol/L Normal 3.5-5.0 Chloride 94 [...] Egfr 137.1 >60 2 Laboratory test 12/03/2019 [facility] Valproic Acid 149.0 High 50-[address] (Depakene) g/[place] [address] [phone] CBC Auto Diff 12/03/2019 [facility] White Blood 12.9 High 3.5- 10.[address] Count 10^3/[place] [address] [phone] Red Blood Count 3.57 10^6/uL Low 3.70-4.87 [...] dialysis) Procedures Date Code Description Status 10/13/2019 22418 EEG Recording In Coma Or Sleep Only Completed 10/12/2019 41620 EEG Recording In Coma Or Sleep Only Completed Medical Devices Description No Information Available Encounters Type Date Location Provider Dx Diagnosis Office Visit 12/05/2019 [facility] Brea Krsih, D72.829 Elevated white 9:41a Assoc,pc TEAROOM HOST blood cell count, Hospitalists unspecified G40.909 Epilepsy, unsp, not intractable, without status epilepticus Office Visit 12/04/2019 9:40a [facility] Brea Krish, S72.002A Fracture of Assoc,pc TEAROOM HOST unsp part of Hospitalists neck of left femur, init D72.829 Elevated white blood cell count, unspecified G40.909 Epilepsy, unsp, not intractable, without status epilepticus I69.354 Hemiplga following cerebral infrc affecting left nondom side Office Visit 12/03/2019 12:16p [facility] Maritza Jenkins, S72.002A Fracture of at Raquel Aden unsp part of neck of left femur, init W05.0xxA Fall from non-moving wheelchair, initial encounter Office Visit 10/14/2019 [facility] Jennifer Dorsey, J96.01 Acute respiratory 10:32a Assocfrance M.D. failure with Hospitalists hypoxia G40.901 Epilepsy, unsp, not intractable, with status epilepticus I69.154 Hemiplga following ntrm intcrbl hemor aff left nondom side R13.19 Other dysphagia I10 Essential (primary) hypertension Office Visit 10/13/2019 10:31a [facility] Nikki G40.901 Epilepsy, unsp , Stocking, SYSTEM ARCHIVE ANALYST not intractable, with status epilepticus G93.89 Other specified disorders of brain I10 Essential (primary) hypertension Z91.19 Patient's noncompliance w oth medical treatment and regimen Office 10/12/2019 [facility] Ab[facility] Kelly I69.198 Other sequelae of Visit 7:00a Clinic [facility] Villanueva nontraumatic intracerebral hemorrhage G40.201 Local-rel symptc epi w cmplx prt seiz, not ntrct, w stat epi Z91.19 Patient's noncompliance w oth medical treatment and regimen Office Visit 10/12/2019 10:30a [facility] Nikki J96.01 Acute respiratory Stocking, SYSTEM ARCHIVE ANALYST failure with hypoxia G40.901 Epilepsy, unsp, not intractable, with status epilepticus R00.0 Tachycardia, unspecified Assessments Date Code Description Provider 12/06/2019 S72.002A Fracture of unspecified part of neck of Brea Krish, TEAROOM HOST left femur, initial encounter for closed fracture 12/06/2019 D72.829 Elevated white blood cell count, Brea Krish, TEAROOM HOST unspecified 12/06/2019 W05.0xxA Fall from non-moving wheelchair, initial Brea Krish, TEAROOM HOST encounter 12/05/2019 D72.829 Elevated white blood cell count, Brea Krish, TEAROOM HOST unspecified 12/05/2019 G40.909 Epilepsy, unspecified, not intractable, Brea Krish, TEAROOM HOST without status epilepticus 12/04/2019 S72.002A Fracture of unspecified part of neck of Brea Krish, TEAROOM HOST left femur, initial encounter for closed fracture 12/04/2019 D72.829 Elevated white blood cell count, Brea Krish, TEAROOM HOST unspecified 12/04/2019 G40.909 Epilepsy, unspecified, not intractable, Brea Krish, TEAROOM HOST without status epilepticus 12/04/2019 I69.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, TEAROOM HOST cerebral infarction affecting left non-dominant side 12/03/2019 S72.002A Fracture of unspecified part of neck of Maritza Jenkins M.D. left femur, initial encounter for closed fracture 12/03/2019 S72.002A Fracture of unspecified part of neck of Geri O'rojelio , PA-C left femur, initial encounter for closed fracture 12/03/2019 W05.0xxA Fall from non-moving wheelchair, initial Maritza Jenkins M.D. 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 intracerebral hemorrhage 10/13/2019 G93.89 Other specified disorders of brain Nikki Stocking, SYSTEM ARCHIVE ANALYST 10/13/2019 Z91.19 Patient's noncompliance with other medical Abilio S. Kay, M.D. 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 intracerebral hemorrhage 10/12/2019 G40.201 Localization-related (focal) (partial) Abilio Villanueva M.D. symptomatic epilepsy and epileptic syndromes with complex partial seizures, not intractable, with status epilepticus 10/12/2019 J96.01 Acute respiratory failure with hypoxia Nikki Stocking, SYSTEM ARCHIVE ANALYST 10/12/2019 Z91.19 Patient's noncompliance with other medical Abilio Villanueva M.D. treatment and regimen 10/12/2019 G40.901 Epilepsy, unspecified, not intractable, Nikki Stocking , SYSTEM ARCHIVE ANALYST with status epilepticus 10/12/2019 R00.0 Tachycardia, unspecified Nikki Stocking, SYSTEM ARCHIVE ANALYST Plan of Treatment 06/01/2019 - Shaheed Peraza [...]
--- OUTSIDE RECORDS SUMMARY | 2019-12-28 16:31 | XMS REPORT ---
:1955 Author Organization [facility] Care Team Providers Name Role Phone Unavailable Unavailable Unavailable Problems Condition Condition Condition Status Onset Resolution Last Treating Comments Name Details Category Date Date Treatment Clinician Date Hemiplegia Hemiplegia Diagnosis Active Nereyda and and 2-13 Wallace hemiparesis hemiparesis [id number] following following cerebral cerebral infarction infarction affecting affecting left left non-dominan non-dominan t side t side Epilepsy, Epilepsy, Diagnosis Active Nereyda unspecified unspecified 2-13 Wallace , not , not [id number] intractable intractable , without , without status status epilepticus epilepticus Essential Essential Diagnosis Active Nereyda (primary) (primary) 2-13 Wallace hypertensio hypertensio [id number] n n Hyperlipide Hyperlipide Diagnosis Active Nereyda ford, ford, 2-13 Wallace unspecified unspecified [id number] Pain frequent Pain Mgmt Resolve 2019-11-10 Yamile pain d 2-13 12:55:00 (Clay) 11:00: [id number] Respiratory dyspnea Respirator Resolve 2019-11-17 Yamile present y d 2-13 11:00:00 (Clay) 11:00: [id number] Integument skin Integument Resolve 2019-11-03 Yamile integrity d 2-13 11:55:00 (Clay) risk 11:00: [id number] Elimination urinary Eliminatio Resolve 2019-11-03 Yamile incontinenc n d 2-13 11:55:00 (Clay) e 11:00: [id number] Neuro confusion Neuro/Emot Active Yamile present ion 2-13 (Clay) 11:00: [id number] Neuro anxiety Neuro/Emot Active 2020-0 Yamile present ion 2-13 (Clay) 11:00: [id number] Activity ADL Activity Active 2019-0 Yamile assistance 2-13 (Clay) required 11:00: [id number] Activity self-care Activity Active 2020-0 Yamile deficit 2-13 (Caly) 11:00: [id number] Safety fall risk Safety Active 2019-0 Yamile factor 2-13 (Clay) present 11:00: [id number] Safety risk for Safety Active 2019-0 Yamile hospitaliza 2-13 (Clay) tion 11:00: [id number] Safety can be left Safety Active 2019-0 Yamile alone for 2-13 (Clay) only short 11:00: Muller [id number] Medication oral med Meds Active Yamile assistance 2-13 (Clay) required 11:00: [id number] Medication potential Meds Active Yamile clinically 2-13 (Clay) significant 11:00: Muller medication [id number] issue Bed transfer PT/OT: Bed Active Nereyda Mobility/Tr deficit: Mobility/T 2-21 Wallace ansfer shower/tub ransfer 13:18: [id number] 00 Balance/End balance/education program coordinator PT/OT: Active Nereyda urance rdination Balance/En 2-21 Wallace deficit durance 13:18: [id number] Balance/End endurance PT/OT: Active Nereyda urance deficit Balance/En 2-21 Wallace durance 13:18: [id number] 00 Gait/Locomo gait PT/OT: Active Nereyda tion assistive Gait/Locom 2-21 Wallace problems device otion 13:18: [id number] present 00 Gait/Locomo gait PT/OT: Active 2020- Nereyda tion deficit Gait/Locom 2-21 Wallace problems otion 13:18: [id number] 00 Elimination urinary Eliminatio Resolve 2019-11-17 Sonja [...]
--- OUTSIDE RECORDS SUMMARY | 2019-12-28 16:31 | XMS REPORT | Continuity of Care Document ---
:1955 External Reference #:[id number] Author Name Brea Rutherford NP (transmitted by agent of provider Nanyc Olguin) Address [address] [place] [address] Care Team Providers Name Role Phone Fozia Silva MD - Internal Care Team Information Chip Silo Tender [phone] Medicine Problems Active Problems Provider Date Hemiplegia [...] Exercise Type/Frequency Exercises regularly Physical therapy sat [facility] for life skills Allergies, Adverse Reactions, Alerts [...] Test Result H/L Range Note Inr/Protime 12/03/2019 [facility] Inr 1.05 Normal 0.82-1.[address] [place] [address] [phone] Laboratory test 12/03/2019 [facility] Partial 31.9 Normal 26.0 -38.[address] [address] PTT [phone] Comp Metabolic 12/03/2019 [facility] Sodium 129 mmol/L Low 135 -[address] [place] [address] [phone] Potassium 3.6 mmol/L Normal 3.5-5.0 Chloride 94 [...] Egfr 137.1 >60 2 Laboratory test 12/03/2019 [facility] Valproic Acid 149.0 High 50-[address] (Depakene) g/[place] [address] [phone] CBC Auto Diff 12/03/2019 [facility] White Blood 12.9 High 3.5- 10.[address] Count 10^3/[place] [address] [phone] Red Blood Count 3.57 10^6/uL Low 3.70-4.87 [...] Date Location Provider Dx Diagnosis Office Visit 12/04/2019 [facility] Brea Krish, S72.002A Fracture of unsp 9:40a Assocpc ICT TRAINER part of neck of Hospitalists left femur, init D72.829 Elevated white blood cell count, unspecified G40.909 Epilepsy, unsp, not intractable, without status epilepticus I69.354 Hemiplga following cerebral infrc affecting left nondom side Office Visit 10/14/2019 [facility] Jennifer Dorsey J96.01 Acute respiratory 10:32a france Soto M.DTequila failure with Hospitalists hypoxia G40.901 Epilepsy, unsp, not intractable, with status epilepticus I69.154 Hemiplga following ntrm intcrbl hemor aff left nondom side R13.19 Other dysphagia I10 Essential (primary) hypertension Office Visit 10/13/2019 10:31a [facility] Nikki G40.901 Epilepsy, unsp , Stocking, PIPE ORGAN BUILDER not intractable, with status epilepticus G93.89 Other specified disorders of brain I10 Essential (primary) hypertension Z91.19 Patient's noncompliance w oth medical treatment and regimen Office Visit 10/12/2019 10:30a [facility] Nikki J96.01 Acute respiratory Stocking, [employer]IPE ORGAN BUILDER failure with hypoxia G40.901 Epilepsy, unsp, not intractable, with status epilepticus R00.0 Tachycardia, unspecified Assessments Date Code Description Provider 12/06/2019 S72.002A Fracture of unspecified part of neck of Brea Krish, ICT TRAINER left femur, initial encounter for closed fracture 12/06/2019 D72.829 Elevated white blood cell count, Brea Krish, ICT TRAINER unspecified 12/06/2019 W05.0xxA Fall from non-moving wheelchair, initial Brea Krish, ICT TRAINER encounter 12/05/2019 D72.829 Elevated white blood cell count, Brea Krish, ICT TRAINER unspecified 12/05/2019 G40.909 Epilepsy, unspecified, not intractable, Brea Krish, ICT TRAINER without status epilepticus 12/04/2019 S72.002A Fracture of unspecified part of neck of Brea Krish, ICT TRAINER left femur, initial encounter for closed fracture 12/04/2019 D72.829 Elevated white blood cell count, Brea Krish, ICT TRAINER unspecified 12/04/2019 G40.909 Epilepsy, unspecified, not intractable, Brea Krish, ICT TRAINER without status epilepticus 12/04/2019 I69.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, ICT TRAINER cerebral infarction affecting left non-dominant side 12/03/2019 [...] Epilepsy, unspecified, not intractable, Nikki Stocking , PIPE ORGAN BUILDER with status epilepticus 10/13/2019 G93.89 Other specified disorders of brain Nikki Stocking, PIPE ORGAN BUILDER 10/13/2019 I10 Essential (primary) hypertension Nikki Stocking, PIPE ORGAN BUILDER 10/13/2019 Z91.19 Patient's noncompliance with other medical Nikki Stocking, PIPE ORGAN BUILDER treatment and regimen 10/12/2019 J96.01 Acute respiratory failure with hypoxia Nikki Stocking, PIPE ORGAN BUILDER 10/12/2019 G40.901 Epilepsy, unspecified, not intractable, Nikki Stocking , PIPE ORGAN BUILDER with status epilepticus 10/12/2019 R00.0 Tachycardia, unspecified Nikki Stocking, PIPE ORGAN BUILDER Plan of Treatment 06/01/2019 - Shaheed Peraza [...]
[2019-12-28] MEDS ORDERED: Senna TAB 8.6 mg* TAB PO PRN (17:14)
[2019-12-28] MEDS ORDERED: Methocarbamol TAB* 500 MG PO PRN (17:23)
[2019-12-28] MEDS ORDERED: oxyCODONE TAB* 5 MG TAB PO PRN (17:24)
--- NOTE | 2019-12-28 19:44 | HP ---
SWING BED ADMISSION HISTORY AND PHYSICAL: DATE OF ADMISSION: 12/28/19 REASON FOR ADMISSION: Left hip fracture. HISTORY OF PRESENT ILLNESS: Lara Nicole is a 64-year-old female. She suffered an intraparenchymal hemorrhage in 2018, which left her with left-sided hemiparesis. She has contractures in her left arm as a result of weakness and spasticity in the left upper extremity. She normally walks with a dali walker and uses a wheelchair to get around long distances. The patient was transitioning to a quad cane working with therapist in her home. On 12/02/19, she was attempting to get up out of her wheelchair with a quad cane but unfortunately lost her balance, the wheelchair slipped away, and she fell on to the floor. She was brought to the hospital. She was found to have a fracture of her left femoral neck with overriding fracture fragments. She was taken to the operating room by Dr. Jenkins on 12/04/19 and underwent a Girdlestone procedure. She was weightbearing as tolerated postoperatively. She has had a lot of difficulty with pain. She was admitted to the rehab unit on 12/06/19. She worked very hard in therapy but founded quite difficult to ambulate on her left leg. She was unable to safely transfer or ambulate. As a result, it was recommended that the patient go to a subacute rehab. The patient did not wish to go to a subacute rehab. She is being made a swing bed and will stay on the swing bed status until an adequate rehab can be found for her. PAST MEDICAL HISTORY: Significant for hemorrhagic CVA in 2018. She developed a seizure disorder after this stroke. She was hospitalized in September for recurrent seizures. It was unclear if she was taking her medications as prescribed during that hospitalization. She now is on Depakote 500 mg 3 times a day. She also has a history of GERD. MEDICATIONS: Current medications include: 1. Depakote 500 mg 3 times a day. 2. She is also on oxycodone for pain. 3. Potassium. 4. Eliquis for DVT prophylaxis. ALLERGIES: No known drug allergies. FAMILY HISTORY: Noncontributory. SOCIAL HISTORY: She lives in the apartment on [address]. She has a ground level apartment. Her son Jt lives in the apartment 1 floor above. She is a nonsmoker, nondrinker. REVIEW OF SYSTEMS: No current shortness of breath or chest pain. PHYSICAL EXAMINATION VITAL SIGNS: The patient's temperature is 98.8, blood pressure is 109/80, pulse is 66, respirations 18. HEENT: Her extraocular movements are intact. NECK: Supple. LUNGS: Lungs sounded clear to auscultation bilaterally. HEART: Heart sounds are regular. S1, S2 audible. ABDOMEN: Soft and nontender. EXTREMITIES: Her left arm has a flexion contracture at the elbow and the wrist as well as the fingers. She also has a slight flexion contracture at the left knee. Her left hip has a wound that is glued and healing. NEUROLOGIC: Sensation is slightly diminished on the left side. She has a great deal of difficulty with movement in the left arm. Left leg was about 3 to 4/5. FUNCTIONAL EXAM: Transfers are min assist. ASSESSMENT: Left hip fracture, status post Girdlestone procedure in a patient with a previous left hemiparesis secondary to a hemorrhagic stroke. PLAN: 1. The patient will be admitted to the swing bed unit. 2. Physical Therapy will work with the patient on a swing bed status. 3. Occupational Therapy will see the patient. 4. Eliquis for DVT prophylaxis. 5. For her seizure disorder, continue Depakote. 6. Adequate analgesia. 7. Her bowels will be regulated. 8. Social Work will be involved for transition to an appropriate subacute rehab. [id number]/[facility] #: [id number] CHRIS
[2019-12-28] MEDS: Apixaban* 2.5 MG TAB PO SCH (20:42)
[2019-12-28] MEDS: Docusate CAP* 100 MG PO SCH (20:42)
[2019-12-28] MEDS: Divalproex Sprinkle CAP* 125 MG PO SCH (20:42)
[2019-12-29] MEDS: Potassium Chlor TAB* 10 MEQ TAB.ER PO SCH (07:41)
[2019-12-29] MEDS: Pantoprazole TAB * 40 MG TAB PO SCH (07:41)
[2019-12-29] MEDS: Apixaban* 2.5 MG TAB PO SCH ×2 (07:41→20:40)
[2019-12-29] MEDS: Docusate CAP* 100 MG PO SCH ×2 (07:41→20:40)
[2019-12-29] MEDS: Divalproex Sprinkle CAP* 125 MG PO SCH ×3 (07:41→20:40)
[2019-12-29] MEDS: oxyCODONE TAB* 5 MG TAB PO PRN ×2 (07:42→13:47)
--- NOTE | 2019-12-29 18:44 | TRS ---
CC: [facility]* TRANSFER SUMMARY: DATE OF ADMISSION: 12/28/19 DATE OF DISCHARGE: 12/30/19 The patient is being transferred to [facility]. DISCHARGE DIAGNOSES: 1. Left hip fracture, status post Girdlestone procedure. 2. Seizure disorder. 3. History of intracerebral hemorrhage with left-sided weakness. 4. Gastroesophageal reflux disease. HISTORY OF PRESENT ILLNESS AND HOSPITAL COURSE: For complete history of the events leading up to her swing bed stay, please see my swing bed history and physical from 12/28/19 as well as my discharge summary from the rehab unit from 12/28/19. Very briefly, Lara Nicole is a 64-year-old female who 2 years ago suffered an intracerebral hemorrhage which left her with a left-sided hemiparesis. She fell out of her wheelchair on 12/02/19 and broke her left hip. She went to the operating room on 12/04/19 for Girdlestone procedure. She was admitted to rehab initially on 12/06/19. She had a lot of difficulty getting to the point where she could ambulate secondary to pain, a leg length discrepancy and other issues including her left-sided weakness. The patient went to the swing bed unit on 12/28/19. She is being transferred to [facility] in order to undergo continued rehabilitation, so that she might return to home to independent living. DISCHARGE DIET: Regular. DISCHARGE MEDICATIONS: 1. Depakote 500 mg 3 times a day. 2. Potassium chloride 10 mEq daily. 3. Eliquis 2.5 mg twice daily. 4. Oxycodone 5 to 10 mg every 4 hours as needed for pain. 5. Colace 100 mg twice daily. 6. Protonix 40 mg daily. 7. Senokot 2 tabs at bedtime as needed. 8. Lactobacillus acidophilus 1 capsule daily. DISPOSITION: [facility]. CONDITION AT DISCHARGE: Stable. [id number]/[facility] #: [id number] [facility] HOSPITALDevin
[2019-12-30 05:28] VITALS: BP 108/71
[2019-12-30] MEDS ORDERED: Lactobacillus Acidophilus* 1 TAB PO SCH (09:00)
[2019-12-30] MEDS: Divalproex Sprinkle CAP* 125 MG PO SCH (09:53)
[2019-12-30] MEDS: Potassium Chlor TAB* 10 MEQ TAB.ER PO SCH (09:53)
[2019-12-30] MEDS: Apixaban* 2.5 MG TAB PO SCH (09:53)
[2019-12-30] MEDS: Pantoprazole TAB * 40 MG TAB PO SCH (09:53)
[2019-12-30] MEDS: Docusate CAP* 100 MG PO SCH (09:53)
[2019-12-30] MEDS: oxyCODONE TAB* 5 MG TAB PO PRN (10:02)
== END 2019-12-30 12:34 | DRG 560 ==
LOC: PMRU 16:20 → UNDOADMIN 16:20 → PMRU 17:04
PROVIDERS: ADMIT Physical Medicine & Rehabilitation; ATTEND Physical Medicine & Rehabilitation
DX: S72.002D Fracture of unspecified part of neck of left femur, subsequent encounter for closed fracture with routine healing (principal); I69.154 Hemiplegia and hemiparesis following nontraumatic intracerebral hemorrhage affecting left non-dominant side; W05.0XXD Fall from non-moving wheelchair, subsequent encounter; G40.909 Epilepsy, unspecified, not intractable, without status epilepticus; K21.9 Gastro-esophageal reflux disease without esophagitis; Z79.899 Other long term (current) drug therapy
CPT/HCPCS: A9270-GY

== ENCOUNTER 2020-06-07 19:47 | Inpatient (IN) ==
[2020-06-07] MEDS ORDERED: Heparin - STEMI 5,000 UNITS/ML 1 ml VIAL IV ONE (19:50)
[2020-06-07 20:08] LABS: ABS Basophils 0.1 10^3/ul (0-0.2); ABS Lymphocytes 1.3 10^3/ul (1.0-4.8); ABS Monocytes 0.7 10^3/ul (0-0.8); Eosinophil % 0.2 %; Hematocrit 34 % (35-47); Hemoglobin 11.9 g/dL (12.0-16.0); Lymphocyte % 6.4 %; Mean Corpuscular HGB Conc 35 g/dL (31-36); Mean Corpuscular Hemoglobin 32 pg (27-31); Mean Corpuscular Volume 92 fL (80-97); Mean Platelet Volume 7.7 fL (7.4-10.4); Nucleated Red Blood Cells % 0.1; Platelet Count 302 10^3/uL (150-450); Red Blood Count 3.72 10^6 /uL (3.70-4.87); Red Cell Distribution Width 13 % (10-15); White Blood Count 20.1 10^3/uL (3.5-10.8)
[2020-06-07 20:16] LABS: Activated Partial Thrombo Time 30.7 seconds (26.0-38.0); INR 1.16 (0.82-1.09)
[2020-06-07 20:24] LABS: ALT 10 U/L (7-52); AST 12 U/L (13-39); Albumin 3.9 g/dL (3.2-5.2); Albumin/Globulin Ratio 1.8 (1-3); Alkaline Phosphatase 40 U/L (34-104); BUN/Creatinine Ratio 11.5 (8-20); Blood Urea Nitrogen 6 mg/dL (6-24); CO2 Carbon Dioxide 25 mmol/L (22-32); Calcium 8.1 mg/dL (8.6-10.3); Chloride 98 mmol/L (101-111); Creatine Kinase 115 U/L (10-223); EGFR African American 143.2 (>60); EGFR Non-African American 118.3 (>60); Globulin 2.2 g/dL (2-4); Glucose 177 mg/dL (70-100); LDL Cholesterol Direct 148 mg/dL; Sodium 133 mmol/L (135-145); Total Protein 6.1 g/dL (6.4-8.9)
[2020-06-07 20:29] LABS: CKMB ng/mL 4.3 ng/mL (0.6-6.3)
[2020-06-07 20:30] LABS: Anion Gap 10 mmol/L (2-11); Potassium 2.7 mmol/L (3.5-5.0); Troponin I 0.05 ng/mL (<0.03)
[2020-06-07] MEDS ORDERED: NS 0.9% 1000 ml BAG 1,000 ML IV ONE ×2 (20:50→22:16)
[2020-06-07] MEDS: KCL 20 MEQ/100 ML IVPREMIX 20 MEQ/100 ML BAG IV SCH (21:07)
[2020-06-07] MEDS ORDERED: Ondansetron 4 mg VIAL 2 MG/ML 2 ml VIAL IV ONE (22:16)
[2020-06-07] MEDS ORDERED: Iohexol 300 (CONTRAST) 10 ML SDV IV ONE (23:43)
[2020-06-08 00:13] LABS: Troponin I 0.45 ng/mL (<0.03)
[2020-06-08] MEDS: KCL 20 MEQ/100 ML IVPREMIX 20 MEQ/100 ML BAG IV SCH ×2 (01:58→05:25)
[2020-06-08 02:51] LABS: Urine Appearance Clear; Urine Bilirubin Negative (Negative); Urine Blood Negative (Negative); Urine Color Yellow; Urine Glucose Negative (Negative); Urine Ketones Trace (Negative); Urine Nitrite Negative (Negative); Urine Protein Negative (Negative); Urine Specific Gravity 1.028 (1.010-1.030); Urine Urobilinogen Negative (Negative)
[2020-06-08 03:07] LABS: Troponin I 0.41 ng/mL (<0.03)
[2020-06-08 04:19] LABS: Magnesium 0.6 mg/dL (1.9-2.7)
[2020-06-08] MEDS ORDERED: Magnesium Sulf 4 GM/100 ML IV 4,000 MG/100 ML BAG IVPB ONE (04:30)
[2020-06-08] MEDS ORDERED: Valproic Acid IV 125 MG in NS 0.9% 100 ml BAG 100 ML IVPB SCH (05:00)
[2020-06-08] MEDS: Enoxaparin 40 MG/0.4 ML SYR SUBCUT SCH (05:23)
[2020-06-08 05:35] LABS: ABS Monocytes 0.8 10^3/ul (0-0.8); ABS Neutrophils 13.1 10^3/ul (1.5-7.7); Hematocrit 37 % (35-47); Hemoglobin 12.7 g/dL (12.0-16.0); Lymphocyte % 6.5 %; Mean Corpuscular HGB Conc 34 g/dL (31-36); Mean Corpuscular Hemoglobin 31 pg (27-31); Mean Corpuscular Volume 91 fL (80-97); Mean Platelet Volume 7.7 fL (7.4-10.4); Platelet Count 313 10^3/uL (150-450); Red Blood Count 4.06 10^6 /uL (3.70-4.87); Red Cell Distribution Width 13 % (10-15)
[2020-06-08 05:58] LABS: BUN/Creatinine Ratio 8.7 (8-20); Calcium 8.4 mg/dL (8.6-10.3); EGFR Non-African American 136.3 (>60)
[2020-06-08 06:31] LABS: Prealbumin 25 mg/dL (18-38)
[2020-06-08 09:01] LABS: Magnesium 1.2 mg/dL (1.9-2.7)
[2020-06-08] MEDS ORDERED: Magnesium Sulfate IV 3 GM in NS 0.9% 100 ml BAG 100 ML IVPB ONE (10:00)
[2020-06-08] MEDS: Valproic Acid IV 250 MG in NS 0.9% 100 ml BAG 100 ML IVPB SCH ×3 (10:23→20:22)
[2020-06-08 11:09] LABS: Troponin I 0.48 ng/mL (<0.03)
[2020-06-08] MEDS: cefTRIAXone 1 gm/50 mL NS BAG 1 GM/50 ML BAG IVPB SCH (14:58)
[2020-06-08] MEDS: NS 0.9% 1000 ml BAG 1,000 ML IV SCH (16:36)
[2020-06-09] MEDS: Valproic Acid IV 250 MG in NS 0.9% 100 ml BAG 100 ML IVPB SCH ×3 (03:29→16:34)
[2020-06-09] MEDS: Enoxaparin 40 MG/0.4 ML SYR SUBCUT SCH (03:29)
[2020-06-09] MEDS: NS 0.9% 1000 ml BAG 1,000 ML IV SCH ×2 (03:30→15:31)
[2020-06-09 07:18] LABS: Hematocrit 32 % (35-47); Hemoglobin 11.2 g/dL (12.0-16.0); Mean Corpuscular HGB Conc 35 g/dL (31-36); Mean Corpuscular Hemoglobin 32 pg (27-31); Mean Corpuscular Volume 92 fL (80-97); Mean Platelet Volume 8.1 fL (7.4-10.4); Platelet Count 261 10^3/uL (150-450); Red Blood Count 3.46 10^6 /uL (3.70-4.87); Red Cell Distribution Width 13 % (10-15); White Blood Count 9.2 10^3/uL (3.5-10.8)
[2020-06-09 07:21] LABS: BUN/Creatinine Ratio 11.4 (8-20); Calcium 8.5 mg/dL (8.6-10.3); EGFR African American 173.6 (>60); EGFR Non-African American 143.5 (>60); Magnesium 1.9 mg/dL (1.9-2.7); Phosphorus 3.1 mg/dL (2.5-5.0); Potassium 3.3 mmol/L (3.5-5.0)
[2020-06-09 08:14] LABS: ABS Basophils 0.1 10^3/ul (0-0.2); ABS Monocytes 0.9 10^3/ul (0-0.8); ABS Neutrophils 6.1 10^3/ul (1.5-7.7); Eosinophil % 0.1 %; Lymphocyte % 22.1 %
[2020-06-09] MEDS ORDERED: Magnesium Sulfate IV 1GM/100ML 1 GM/100 ML BAG IV ONE (10:23)
[2020-06-09] MEDS: Potassium Chlor 20 meq TAB.ER PO SCH ×2 (10:46→12:37)
[2020-06-09] MEDS: cefTRIAXone 1 gm/50 mL NS BAG 1 GM/50 ML BAG IVPB SCH (15:28)
[2020-06-09 15:59] VITALS: BP 122/81
== END 2020-06-09 18:24 | disposition home or self-care (01) | DRG 101 ==
LOC: ED 19:47 → MEDTELE 06-08 01:57
PROVIDERS: ADMIT Pediatrics; ATTEND Internal Medicine

== ENCOUNTER 2024-05-06 06:05 | Inpatient (IN) ==
[2024-05-06] MEDS: Morphine 2 MG/ML SYRINGE IV ONE (07:28)
[2024-05-06 07:44] LABS: ABS Lymphocytes 1.1 10^3/uL (1.0-4.8); ABS Monocytes 0.9 10^3/uL (0.0-0.9); ABS Neutrophils 6.3 10^3/uL (1.5-7.6); Eosinophil % 0.3 %; Hematocrit 32.9 % (35-45); Hemoglobin 11.5 g/dL (11.5-14.3); Lymphocyte % 12.7 %; Mean Corpuscular Hgb Conc 35.1 g/dL (31-36); Mean Corpuscular Volume 85.6 fL (80-97); Mean Platelet Volume 7.8 fL (7.5-11.2); Platelet Count 459 10^3/uL (150-450); Red Blood Count 3.84 10^6/uL (3.63-4.92); Red Cell Distribution Width 16.4 % (12-17); White Blood Count 8.3 10^3/uL (3.8-11.8)
[2024-05-06 08:25] LABS: Albumin 3.6 g/dL (3.2-5.2); Albumin/Globulin Ratio 1.6 (1-3); Calcium 8.6 mg/dL (8.6-10.3); Creatinine, Serum 0.63 mg/dL (0.51-0.95); Globulin 2.3 g/dL (2-4); Potassium 3.6 mmol/L (3.5-5.0); Total Bilirubin 0.3 mg/dL (0.2-1.0); Total Protein 5.9 g/dL (6.4-8.9)
[2024-05-06] MEDS: NS 0.9% 1000 ml BAG 1,000 ML IV ONE (09:42)
[2024-05-06 15:28] LABS: Osmolality Serum 258 mOsm/kg (275-295)
[2024-05-06] MEDS: Lidocaine PATCH 5% PATCH TRANSDERM ONE (17:43)
[2024-05-06 18:48] LABS: Urine Osmo 238 mOsm/kg (150-1150)
[2024-05-06 19:55] LABS: TSH Ultra Thyroid Stim Horm 2.55 mcIU/mL (0.34-5.60)
[2024-05-07] MEDS: Enoxaparin 40 MG/0.4 ML SYR SUBCUT SCH (01:05)
[2024-05-07 03:54] LABS: Calcium 7.8 mg/dL (8.6-10.3); Creatinine, Serum 0.45 mg/dL (0.51-0.95); Potassium 3.5 mmol/L (3.5-5.0); eGFR CKD-EPI 104.1 (>60)
[2024-05-07 06:42] LABS: Hematocrit 27.8 % (35-45); Hemoglobin 9.7 g/dL (11.5-14.3); Mean Corpuscular Hemoglobin 30.1 pg (27-33); Mean Corpuscular Hgb Conc 34.9 g/dL (31-36); Mean Corpuscular Volume 86.2 fL (80-97); Mean Platelet Volume 8.1 fL (7.5-11.2); Platelet Count 430 10^3/uL (150-450); Red Blood Count 3.23 10^6/uL (3.63-4.92); Red Cell Distribution Width 16.5 % (12-17); White Blood Count 7.2 10^3/uL (3.8-11.8)
[2024-05-07 07:11] LABS: Calcium 8.3 mg/dL (8.6-10.3); Creatinine, Serum 0.42 mg/dL (0.51-0.95); Potassium 3.8 mmol/L (3.5-5.0); eGFR CKD-EPI 105.8 (>60)
[2024-05-07 13:07] LABS: Anion Gap 9 mmol/L (2-16); Blood Urea Nitrogen 5 mg/dL (6-24); CO2 Carbon Dioxide 25 mmol/L (22-32); Chloride 95 mmol/L (101-111); Creatinine, Serum 0.44 mg/dL (0.51-0.95); Glucose 107 mg/dL (70-100); Sodium 129 mmol/L (135-145); eGFR CKD-EPI 104.6 (>60)
[2024-05-08 07:30] LABS: ABS Basophils 0.1 10^3/uL (0.0-0.1); ABS Lymphocytes 1.2 10^3/uL (1.0-4.8); ABS Monocytes 1.3 10^3/uL (0.0-0.9); ABS Neutrophils 6.1 10^3/uL (1.5-7.6); Eosinophil % 0.1 %; Hematocrit 30.6 % (35-45); Hemoglobin 10.6 g/dL (11.5-14.3); Lymphocyte % 13.5 %; Mean Corpuscular Hemoglobin 30.1 pg (27-33); Mean Corpuscular Hgb Conc 34.6 g/dL (31-36); Mean Corpuscular Volume 86.9 fL (80-97); Mean Platelet Volume 7.8 fL (7.5-11.2); Platelet Count 429 10^3/uL (150-450); Red Blood Count 3.52 10^6/uL (3.63-4.92); Red Cell Distribution Width 16.7 % (12-17); White Blood Count 8.7 10^3/uL (3.8-11.8)
[2024-05-08 08:02] LABS: Calcium 8.6 mg/dL (8.6-10.3); Creatinine, Serum 0.53 mg/dL (0.51-0.95)
[2024-05-08] MEDS: Psyllium PAK PO SCH (09:39)
[2024-05-08] MEDS: Magnesium Hydroxide LIQ 30 ML UDC PO SCH (09:40)
[2024-05-09 06:15] LABS: ABS Lymphocytes 1.6 10^3/uL (1.0-4.8); ABS Monocytes 1.1 10^3/uL (0.0-0.9); ABS Neutrophils 4.2 10^3/uL (1.5-7.6); Eosinophil % 0.3 %; Hemoglobin 8.5 g/dL (11.5-14.3); Lymphocyte % 23.3 %; Mean Corpuscular Hemoglobin 29.8 pg (27-33); Mean Corpuscular Hgb Conc 34.2 g/dL (31-36); Mean Corpuscular Volume 87.1 fL (80-97); Mean Platelet Volume 7.7 fL (7.5-11.2); Platelet Count 354 10^3/uL (150-450); Red Blood Count 2.87 10^6/uL (3.63-4.92); Red Cell Distribution Width 16.7 % (12-17)
[2024-05-09 06:33] LABS: Calcium 8.1 mg/dL (8.6-10.3); Creatinine, Serum 0.51 mg/dL (0.51-0.95); Magnesium 1.8 mg/dL (1.9-2.7); Phosphorus 3.3 mg/dL (2.5-5.0); Potassium 4.1 mmol/L (3.5-5.0)
[2024-05-09] MEDS: Magnesium Sulfate 2 gm BAG 2 GM/50 ML BAG IVPB ONE (09:12)
[2024-05-09] MEDS: Senna TAB 8.6 mg TAB PO PRN (14:04)
[2024-05-10] MEDS: Lidocaine PATCH 5% PATCH TRANSDERM SCH (17:34)
[2024-05-11 09:24] LABS: ABS Basophils 0.1 10^3/uL (0.0-0.1); ABS Lymphocytes 0.9 10^3/uL (1.0-4.8); ABS Monocytes 1.2 10^3/uL (0.0-0.9); ABS Neutrophils 5.4 10^3/uL (1.5-7.6); ABS Nucleated RBC 0.01 10^3/ul; Eosinophil % 0.1 %; Hematocrit 27.5 % (35-45); Hemoglobin 9.3 g/dL (11.5-14.3); Lymphocyte % 12.2 %; Mean Corpuscular Hemoglobin 29.4 pg (27-33); Mean Corpuscular Volume 86.5 fL (80-97); Nucleated Red Blood Cells % 0.2 %/100WBC (0.0-0.8); Platelet Count 420 10^3/uL (150-450); Red Blood Count 3.18 10^6/uL (3.63-4.92); Red Cell Distribution Width 16.6 % (12-17); White Blood Count 7.6 10^3/uL (3.8-11.8)
[2024-05-11 10:09] VITALS: BP 150/80
[2024-05-11 10:19] LABS: Rapid COVID-19 Molecular Undetected (Undetected)
[2024-05-11 12:02] LABS: Calcium 8.7 mg/dL (8.6-10.3); Creatinine, Serum 0.37 mg/dL (0.51-0.95); Potassium 3.8 mmol/L (3.5-5.0); eGFR CKD-EPI 109.1 (>60)
== END 2024-05-11 13:30 | DRG 644 ==
LOC: EDHOLD 06:05 → ED 06:05 → SUATTDRO 16:37 → EDHOLD 05-07 17:12 → SSU 05-07 17:59 → MEDTELE 05-09 21:58
PROVIDERS: ADMIT Student in an Organized Health Care Education/Training Program; ATTEND Internal Medicine